=== PATIENT | male | born 1935 | race Caucasian/White ===

== ENCOUNTER 2024-08-30 13:20 | Outpatient (OUT) | payer MEDICARE, OTHER, SELFPAY ==
--- NOTE | 2024-08-30 14:24 | PM.WCHP ---
Wound Care H&P: HPI History of Present Illness Narrative: Ever is a pleasant 89-year-old gentleman with history of type 2 diabetes who presents for routine nail care. He states the toenails are painful when elongated and pain is relieved when they are trimmed. He denies cramping in his calves or pain in his feet. Exam Narrative: Exam Narrative: Dermatologic: No ulcerative or preulcerative lesions are noted. Toenails 1 through 10 are elongated and thickened. No evidence of paronychia. Musculoskeletal: No gross deformity, strength and range of motion are within normal limits Neurologic: Achilles reflexes are absent bilaterally, vibratory sensation is present bilaterally, monofilament testing revealed protective sensation intact in 1/5 areas on the right and 3/5 areas on the left. Vascular: Dorsalis pedis pulses are 2/4 bilaterally. PT pulses are nonpalpable bilaterally. Capillary refill is less than 3 seconds bilaterally. Varicosities are present bilaterally. Skin is warm and dry, but shiny. No edema noted. Digital hair is absent. Assessment and Plan Assessment and Plan (1) Tinea unguium: (2) Diminished pulses in lower extremity: (3) Type 2 diabetes mellitus with diabetic neuropathy, unspecified: (4) Disorder of nail due to another disorder: Plan Toenails 1 through 10 were sharply debrided without incident. The patient was counseled on foot health and should follow-up in 3 months, sooner if any issues arise. Acute Procedures Podiatry Nail Debridement Class B Findings Absent posterior tibial pulse: bilateral Advanced trophic changes as evidenced by any three of the following: decreased hair growth, nail changes (thickening) and skin texture (thin or shiny) Class C Findings Nail debridement paresthesia (abnormal spontaneous sensations in the feet): Yes Burning: Yes Qualifies If: Qualifiers If:: A patient qualifies for nail debridement if they have: 1 class A finding (Q7) 2 class B findings (Q8) OR 1 class B & 2 class C findings in addition to a primary condition (Q9) Nail Procedure Nail Procedure Time out: Yes Nail procedure: other (Nail debridement with nail nippers) Number of affected nails: 10 Location (toes): left and right Procedure successful: Yes Patient tolerated procedure: well and no complications Additional comments: Toenails 1 through 10 were sharply debrided without incident. The patient noted pain relief postprocedure.
== END 2024-08-30 13:21 | disposition home or self-care (01) ==
LOC: WC 13:20
PROVIDERS: PCP Physician Assistant; Visit Provider Physician Assistant
DX: B35.1 Tinea unguium (principal); R09.89 Other specified symptoms and signs involving the circulatory and respiratory systems; E11.40 Type 2 diabetes mellitus with diabetic neuropathy, unspecified; L60.8 Other nail disorders
CPT/HCPCS: 11721

== ENCOUNTER 2024-11-29 12:51 | Outpatient (OUT) | payer MEDICARE, OTHER, SELFPAY ==
--- OUTSIDE RECORDS SUMMARY | 2024-05-07 09:40 | XMS_ITS ---
Author Organization The [facility] in [place] Address [address] [place] [address] Care Team Providers Care Wafer Fab Operator Name Role Phone Blake Kothari DO Primary Care Provider Ana Bray Unavailable [phone] REASON FOR VISIT Nail Care Medications Medication SIG (Take, Route, Frequency, Duration) Notes Start Date End Date Status Nitroglycerin 0.4 MG as directed Sublingual Active Montelukast Sodium 10 MG 1 tablet Orally Once a day Active metFORMIN HCl 500 MG 1 tablet with a osito l Orally Once a day Active Magnesium 200 MG 2 tablets with a osito l Orally Once a day Active Lisinopril 2.5 MG 1 tablet Orally Once a day Active Levothyroxine Sodium 50 MCG 1 tablet in the morning on an empty stomach Orally Once a day Active Isosorbide Dinitrate 40 MG 1 tablet Oral ly Twice a day Active glipiZIDE 5 MG 1 tablet 30 minutes before breakfast Orally Once a day Active Carvedilol 3.125 MG 1 tablet with food Orally Twice a day Active Atorvastatin Calcium 40 MG 1 tablet Oral ly Once a day Active Aspirin 81 MG 1 tablet Orally Once a day Active Social History Tobacco Use: Social History Observation Description Date Details (start date - stop date) Former Smoker NA - NA Tobacco Control (Standard) Question Answer Notes Tobacco use: Former smoker Vital Signs Temperature 98.2 degrees Fahrenheit 05/07/20 24 Heart Rate 88 /min 05/07/2024 Oximetry 99 % 05/07/2024 Encounters Encounter Location Date Provider Diagnosis [facility] (PODIATRY) [address] [place] [address] [place] [address] 05/07/2024 Ana Patrick Pain in right toe(s) M79.674 Assessments Encounter Date Diagnosis (ICD Code) Assessment Notes Treatment Notes Treatment Clinical Notes Section Notes 05/07/2024 Pain in right toe(s) (ICD-10 - M79.674) Plan Of Treatment No Information Progress Notes * Ever KLEINDOB:1935 (88 yo M)Acc No.[id number]:05/07/2024 Nurse Visit Patient: Ever VALENZUELA Provider: Nia Patrick PA-C :1935 A ge:88 Y S ex:Male Date:05/07/2024 Address:[address] [place] [address] Roberth Rodriguez [facility] Pcp:Blake Kothari, DO Check In:01:34 PM ESTCheck O ut:01:46 PM EST Subjective: * Chief Complaints: * N ail Care * HPI: G eneral: Nails were trimmed and filed down to his liking. Patient relates releif after procedure. * Active Problem List �����Problem List has not been verified* Medical History: * Surgical History: h eart stents 2007heart stents 2013 * Hospitalization/Major Diagno stic Procedure: N o Hospitalization History. * Family History: N o Family History documented.. * Social History: T obacco Use: T obacco Control (Standard) T obacco use: F ormer smoker * Medications: T akingAspirin 81 MG Tablet Delayed Release 1 tablet Orally Once a day Atorvastatin Calcium 40 MG Tablet 1 tablet Orally Once a day Carvedilol 3.125 MG Tablet 1 tablet with food Orally Twice a day glipiZIDE 5 MG Tablet 1 tablet 30 minutes before breakfast Orally Once a day Isosorbide Dinitrate 40 MG Tablet 1 tablet Orally Twice a day Levothyroxine Sodium 50 MCG Tablet 1 tablet in the morning on an empty stomach Orally Once a day Lisinopril 2.5 MG Tablet 1 tablet Orally Once a day Magnesium 200 MG Tablet 2 tablets with a meal Orally Once a day metFORMIN HCl 500 MG Tablet 1 tablet with a meal Orally Once a day Montelukast Sodium 10 MG Tablet 1 tablet Orally Once a day Nitroglycerin 0.4 MG Tablet Sublingual as directed Sublingual Medication List reviewed and reconciled with the patientTaking Aspirin 81 MG Tablet Delayed Release 1 tablet Orally Once a day Taking Atorvastatin Calcium 40 MG Tablet 1 tablet Orally Once a day Taking Carvedilol 3.125 MG Tablet 1 tablet with food Orally Twice a day Taking glipiZIDE 5 MG Tablet 1 tablet 30 minutes before breakfast Orally Once a day Taking Isosorbide Dinitrate 40 MG Tablet 1 tablet Orally Twice a day Taking Levothyroxine Sodium 50 MCG Tablet 1 tablet in the morning on an empty stomach Orally Once a day Taking Lisinopril 2.5 MG Tablet 1 tablet Orally Once a day Taking Magnesium 200 MG Tablet 2 tablets with a meal Orally Once a day Taking metFORMIN HCl 500 MG Tablet 1 tablet with a meal Orally Once a day Taking Montelukast Sodium 10 MG Tablet 1 tablet Orally Once a day Taking Nitroglycerin 0.4 MG Tablet Sublingual as directed Sublingual Medication List reviewed and reconciled with the patient * Allergies: n o[Allergies Verified] Objective: * Vitals: T emp:98.2F, HR:88/min, Oxygen sat %:99%. Assessment: * Assessment: 1. P ain in right toe(s) - M79.674 (Primary) Plan: * Treatment: * Procedure Codes: * * Sign off status: Completed Visit Status: C HK (Check Out) true * Provider: Nia Patrick PA-C Date: 1 07/08/2023 Generated for Tricia drake/Chely/Andrzej on: 0 11/29/2024 12:57 PM EDT History and Physical Notes * HPI (History of Present Illness) Category Sub-Category Detail Notes Category Not es General Nails were trim med and filed down to his liking. Patient relates releif after procedure.
--- OUTSIDE RECORDS SUMMARY | 2024-07-30 10:00 | XMS_ITS ---
Author Organization The [facility] in [place] Address [address] [place] [address] Care Team Providers Care Vending Technician Name Role Phone Blake Kothari DO Primary Care Provider Ana Bray Unavailable [phone] REASON FOR VISIT 3 month f/u Encounters Encounter Location Date Provider Diagnosis [facility] (PODIATRY) [address] [place] [address] [place] [address] 07/30/2024 Ana Patrick Plan Of Treatment No Information Progress Notes * Ever KLEINDOB:1935 (89 yo M)Acc No.[id number]:07/30/2024 UNLOCKED PROGRESS NOTE Nurse Visit Patient: Ever VALENZUELA Provider: Nia Patrick PA-C :1935 A ge:88 Y S ex:Male Date:07/30/2024 Address:[address] [place], [place] [id number] Pcp:Blake Kothari DO Subjective: * Chief Complaints: * 1 . 3 month f/u. * Medical History: Objective: * Vitals: Assessment: Plan: * Treatment: * * Electronic signature of Ravinder Patrick PA-C on 11/29/2024 at 12:57 PM EDT Sign off status: Pending Visit Status: C ANC (Cancelled) * Provider: Nia Patrick PA-C Date: 0 07/30/2024 Generated for Printi ng/Faxing/eTransmitting on: 0 11/29/2024 12:57 PM EDT
--- OUTSIDE RECORDS SUMMARY | 2024-08-13 09:38 | XMS_ITS ---
Author Organization The [facility] in [place] Address [address] [place] [address] Care Team Providers Care Barrel Polisher Name Role Phone Blake Kothari DO Primary Care Provider Selvin Steve [facility] [phone] Encounters Encounter Location Date Provider Diagnosis [facility] (PODIATRY) [address] [place] [address] [place] [address] 08/13/2024 Selvin Corrigan Plan Of Treatment No Information Progress Notes * Ever KLEINDOB:1935 (89 yo M)Acc No.[id number]:08/13/2024 Patient: Ever VALENZUELA :1935 A ge:89 Y S ex:Male Address:[address] [place] [address] [place], [address] * true * Date: Generated for Printi ng/Faxing/eTransmitting on: 0 11/29/2024 12:56 PM EDT
--- OUTSIDE RECORDS SUMMARY | 2024-09-24 05:00 | XMS_ITS | Encounter Summary ---
Author Name [facility] [place] Organization [facility] [place] Address [address] [place] [address] Care Team Providers Care Asp Net Developer Name Role Phone LISSETTE KARIMI Primary Care Provider Unavail able Insurance Providers: All historical and current Section Date Range: From patient's date of to the date document was created. This section includes the names of all active insurance providers for the patient. Insurance Provider Type of Coverage Plan Name Start of Policy Coverage End of Policy Coverage Group Number Member ID Insurance Provider's Telephone Number Policy Vargas's Name Patient's Relationship to Policy Vargas MEDICARE (WNR) MEDICARE (M) PART B May 16, 2004 PART B [id number] MARTÍN MASON PATIENT MEDICARE (WNR) MEDICARE (M) PART A Jul 14, 2001 PART A [id number] MARTÍN MASON PATIENT MEDICARE (WNR) MEDICARE (M) PART A Jul 14, 2001 PART A [id number] JERONIMOALENAMARTÍN TELLES PATIENT Selected Encounter This section includes the information on record at [place] for the Encounter. Date/Time Encounter Type Encounter Description Reason Provider Source September 24, 2024 09:00 AM OFFICE O/P EST LOW 20 MIN PRIMARY CARE/MEDICINE ICD-10-CM E03.9 Hypothyroidism, unspecified FEDE KARIMI Encounter Template Text not used by [place] Assessments - Encounter Diagnoses This section includes the primary and secondary diagnoses documented for the Encounter. 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 FEDE KARIMI A [facility] September 24, 2024 09:09 AM SECONDARY Cardiac murmur, unspecified FEDE KARIMI A [facility] September 24, 2024 09:09 AM SECONDARY Essential (primary) hypertension FEDE KARIMI A [facility] September 24, 2024 09:09 AM SECONDARY Hyperlipidemia, unspecified FEDE KARIMI A [facility] September 24, 2024 09:09 AM SECONDARY Type 2 diabetes mellitus without complications FEDE KARIMI A [facility] September 24, 2024 09:09 AM SECONDARY Unspecified asthma, uncomplicated FEDE KARIMI A [facility] Plan of Treatment: Future Appointments (+ 6 months) and Future Tests (+/- 45 days) The Plan of Treatment section includes [facility] care [facility] the [facility] [place] [facility] This section includes future appointments and future orders which are active, pending or scheduled. Active, Pending, and Scheduled Orders This section includes a listing of several types of active, pending, and scheduled orders, including clinic medications orders, diagnostic test orders, procedure orders and consult orders; where the start date of the order is 45 days before the date of the Encounter or 45 days after the date of theEncounter. The data comes from all [place] treatment facilities. Test Date/Time Test Type Test Details Facility Name September 27, 2024 12:00 AM Laboratory - Chemi stry Order MICROALBUMIN/CREATININ E RATIO PANEL URINE, RANDOM SP ONCE [facility] Lab Results: +/- 30 days of the encounter This section includes the Chemistry and Hematology Lab Results on record with [place] for the patient. Radiology Reports and Pathology Reports are provided separately, in subsequent sections. Lab Results This section contains the Chemistry/Hematology Results that were resulted 30 days before or 30 daysafter the date of the Encounter. Date/Time Source Result Type Result - Unit Interpretation Reference Range Specimen Type Comment September 24, 2024 09:15 AM [facility] TSH PLASMA Specimen Type: PLASMA No comment entered. Ordering Provider: TITO KARIMI Report Released Date/Time: September 20, 2024 02:14 PM Reporting Lab: [address] [address] Performing Lab: [place] [id number] TSH 3.250 u[IU]/mL 0.350-4.940 September 24, 2024 09:15 AM [facility] IRON GROUP SERUM Specimen Type: SERUM No comment entered. Ordering Provider: LISSETTE KARIMI Report Released Date/Time: September 20, 2024 02:14 PM Reporting Lab: [address] [address] Performing Lab: [place] [id number] TIBC 219 ug/dL L 250-425 IRON 65 ug/dL 65-175 TIBC% 30 20-50 September 24, 2024 09:15 AM [facility] FERRITIN PLASMA Specimen Type: PLASMA No comment entered. Ordering Provider: LISSETTE KARIMI Report Released Date/Time: September 20, 2024 02:14 PM Reporting Lab: [address] [address] Performing Lab: [place] [id number] FERRITIN 100.1 ng/mL 21.8-274.6 September 24, 2024 09:15 AM [facility] FOLATE SERUM Specimen Type: SERUM No comment entered. Ordering Provider: LISSETTE KARIMI Report Released Date/Time: September 20, 2024 02:14 PM Reporting Lab: [address] [address] Performing Lab: [place] [id number] FOLATE 15.7 ng/mL 7.0-31.4 September 24, 2024 09:15 AM [facility] VITAMIN B12 PLASMA Specimen Type: P KLARISSA Comment: VITB12 Levels above 300 or 400 pg/mL are rarely associated with VITB12 vitamin B12 deficiency induced hematologic or neurologic VITB12 disease, respectively. Recommended usage in conjunction with VITB12 information obtained from clinical evaluation and other VITB12 testing. Ordering Provider: LISSETTE KARIMI Report Released Date/Time: September 20, 2024 02:14 PM Reporting Lab: [address] [phone] Performing Lab: [address] [phone] VITAMIN B12 578 pg/mL 213-816 September 17, 2024 07:53 AM [facility] COMPREHENSIVE METABOLIC PANEL PLASMA S pecimen Type: PLASMA Comment: GLUCOSE The ADA recommends a fasting glucose of 99 mg/dL as the GLUCOSE upper limit of normal. TP Per package insert reference range for recumbent is 6.0 to 7.8 TP g/dL. Plasma samples will generally have higher values (about TP 0.2 to 0.4 g/dL higher) due to presence of fibrinogen. TRIG REFERENCE RANGE: BORDERLINE HIGH: 150-199 mg/dL HIGH: 200-499 TRIG mg/dL VERY HIGH: >=500 mg/dL CHOL REF RANGE: BORDERLINE HIGH: 200-239 mg/dL HIGH: >=240 mg/dL HDLC Values >60 are a negative risk factor for heart disease. DLDL REF RANGE: NEAR OR ABOVE OPTIMAL: 100-129 mg/dL BORDERLINE DLDL HIGH: 130-159 mg/dL HIGH: 160-189 mg/dL VERY HIGH: >=190 Ordering Provider: AUBREE SHAH Report Released Date/Time: September 28, 2023 09:26 AM Reporting Lab: [address] [phone] Performing Lab: [address] [phone] ALBUMIN 3.5 g/dL 3.5-4.8 ALKALINE PHOSPHATASE 102 U/L 40-150 ALT/SGPT 17 U/L 0-55 AST/SGOT 24 U/L 10-40 BUN 24.9 mg/dL 8.4-25.7 CALCIUM 9.2 mg/dL 8.6-10.3 CREATININE 1.5 mg/dL H 0.7-1.3 CO2 25 mmol/L 22-30 GLUCOSE 83 mg/dL 74-99 PROTEIN, TOTAL 6.1 g/dL L 6.4-8.3 SODIUM 142 mmol/L 134-144 CHLORIDE 111 mmol/L 99-112 BILIRUBIN, TOTAL 0.7 mg/dL 0.2-1.2 POTASSIUM 4.9 mmol/L 3.5-5.1 ANION GAP 11 mmol/L 10-20 EGFR (CALCULATED) 45 September 17, 2024 07:53 AM [facility] LIPID PROFILE PLASMA Specimen Type: PLASMA Comment: GLUCOSE The ADA recommends a fasting glucose of 99 mg/dL as the GLUCOSE upper limit of normal. TP Per package insert reference range for recumbent is 6.0 to 7.8 TP g/dL. Plasma samples will generally have higher values (about TP 0.2 to 0.4 g/dL higher) due to presence of fibrinogen. TRIG REFERENCE RANGE: BORDERLINE HIGH: 150-199 mg/dL HIGH: 200-499 TRIG mg/dL VERY HIGH: >=500 mg/dL CHOL REF RANGE: BORDERLINE HIGH: 200-239 mg/dL HIGH: >=240 mg/dL HDLC Values >60 are a negative risk factor for heart disease. DLDL REF RANGE: NEAR OR ABOVE OPTIMAL: 100-129 mg/dL BORDERLINE DLDL HIGH: 130-159 mg/dL HIGH: 160-189 mg/dL VERY HIGH: >=190 Ordering Provider: AUBREE SHAH Report Released Date/Time: September 28, 2023 09:26 AM Reporting Lab: [address] [phone] Performing Lab: [address] [phone] CHOLESTEROL 124 mg/dL 0-199 LDL CHOLESTEROL 65 mg/dL 0-99 HDL CHOLESTEROL 48 mg/dL >40 TRIGLYCERIDE 84 mg/dL 0-149 September 17, 2024 07:53 AM [facility] CBC BLOOD Specimen Type: BLOOD No comment entered. Ordering Provider: AUBREE SHAH Report Released Date/Time: September 28, 2023 09:26 AM Reporting Lab: [address] [phone] Performing Lab: [address] [phone] WBC COUNT 5.7 10*3/uL 3.6-11.0 RBC COUNT 3.69 10*6/uL L 4.47-5.83 HGB 12.0 g/dL L 13.6-17.4 HCT 35.6 L 40.0-51.0 MCV 96.3 fL H 80.0-96.0 MCH 32.5 pg H 27.0-31.0 MCHC 33.7 g/dL 31.5-36.5 PLT 155 10*3/uL 150-400 LYMPHS % 20.1 L 21.0-51.0 MONOCYTES % 9.2 H 4.0-8.0 NUCLEATED RBC/100WBC 0.1 /100{WBCs} RDW 14.4 11.2-15.8 NEUTROPHIL % 67.5 54.0-78.0 EOSINOPHIL % 2.4 0.0-3.0 BASOPHIL % 0.8 0.0-3.0 ABSOLUTE LYMPHOCYTE COUNT 1.2 10*3/uL 0. 8-5.0 ABSOLUTE NEUTROPHIL COUNT 3.9 10*3/uL 1. 9-8.6 ABSOLUTE BASOPHIL COUNT 0.0 10*3/uL 0.0- 0.3 ABSOLUTE MONOCYTE COUNT 0.5 10*3/uL 0.1- 0.9 ABSOLUTE EOSINOPHIL COUNT 0.1 10*3/uL 0. 0-0.3 MPV 8.9 fL 7.4-11.4 September 17, 2024 07:53 AM [facility] HEMOGLOBIN A1C BLOOD Specimen Type: B LOOD Comment: Values obtained from A1C measurements can vary. For typical A1C assays, a reported value of 7.0 could actually be between 6.72 and 7.28 if measured by a reference method. A reported value of 9.0 could actually be between 8.73 and 9.27. Ref: http://www.ngsp.org/CAPdata.asp Ordering Provider: AUBREE SHAH Report Released Date/Time: September 28, 2023 09:26 AM Reporting Lab: [address] [phone] Performing Lab: [address] [phone] HEMOGLOBIN A1C 6.9 H 3.6-5.7 September 17, 2024 07:53 AM [facility] MAGNESIUM PLASMA Specimen Type: PLASMA Comment: GLUCOSE The ADA recommends a fasting glucose of 99 mg/dL as the GLUCOSE upper limit of normal. TP Per package insert reference range for recumbent is 6.0 to 7.8 TP g/dL. Plasma samples will generally have higher values (about TP 0.2 to 0.4 g/dL higher) due to presence of fibrinogen. Ordering Provider: AUBREE SHAH Report Released Date/Time: September 28, 2023 09:26 AM Reporting Lab: [address] [phone] Performing Lab: [facility] [address] [facility] [phone] MAGNESIUM 1.6 mg/dL 1.6-2.6 Social History: Smoking Status (Most current) and Tobacco Use (All prior to encounter date) This section includes the most current, and the historical, smoking and tobacco- related health factors from the [place] facility where the Encounter took place. Current Smoking Status This section includes the most current smoking, or tobacco-related health factor, from the [place] facility where the Encounter took place. Date/Time Current Smoking Status Comment Facil ity September 24, 2024 09:00 AM VA-TOBACCO USE FORMER CIGARETTES [facility] Tobacco Use History This section includes a history of the smoking, or tobacco-related health factors, that were collected on or before the date of the Encounter. The data comes from the [place] facility where the Encounter took place. Date/Time Smoking Status/Tobacco Use Comment F acmaxi September 24, 2024 09:00 AM VA-TOBACCO USE FORMER CIGARETTES [facility] Oct 27, 2022 09:30 AM VA-TOBACCO FORMER USER [facility] Oct 27, 2022 09:30 AM VA-TOBACCO QUIT 15 YRS OR MORE [facility] Oct 23, 2021 09:30 AM VA-TOBACCO FORMER USER [facility] Oct 23, 2021 09:30 AM VA-TOBACCO QUIT 15 YRS OR MORE [facility] Jan 08, 2020 03:00 PM VA-TOBACCO FORMER USER [facility] Jan 08, 2020 03:00 PM VA-TOBACCO QUIT 15 YRS OR MORE [facility] Aug 24, 2018 01:17 PM VA-TOBACCO NEVER USED [facility] Encounter Notes: All associated encounter notes This section contains the clinical notes associated to the Encounter. Date/Time Encounter Note(s) Provider Source September 25, 2024 07:56 AM PRIMARY CARE FLORENCIA RS: LOCAL TITLE: PATIENT RESULTS LETTER (T) STANDARD TITLE: PRIMARY CARE LETTERS DATE OF NOTE: SEPTEMBER 25, 2024@07:56 ENTRY DATE: SEPTEMBER 25, 2024@07:56:25 AUTHOR: LISSETTE KARIMI COSIGNER: URGENCY: STATUS: COMPLETED [facility] [address] [place] [address] MARTÍN MASON September [address] [place], [place] [address] Dear MARTÍN MASON, I have reviewed your results listed below and I would like to discuss them with you. CHOLESTEROL AND TRIGLYCERIDES - YOUR RESULTS WERE: Collection DT Specimen Test Name Result Units Ref Range 09/17/2024 07:53 PLASMA CHOLESTEROL 124 mg/dL 0 - 199 09/17/2024 07:53 PLASMA LDL CHOLESTEROL 65 mg/dL 0 - 99 09/17/2024 07:53 PLASMA HDL CHOLESTEROL 48 mg/dL Ref: >= 40 09/17/2024 07:53 PLASMA TRIGLYCERIDE 84 mg/dL 0 - 149 Comment: GLUCOSE The ADA recommends a fasting glucose of 99 mg/dL as the Comment: GLUCOSE upper limit of normal. Comment: TP Per package insert reference range for recumbent is 6.0 to 7.8 Comment: TP g/dL. Plasma samples will generally have higher values (about Comment: TP 0.2 to 0.4 g/dL higher) due to presence of fibrinogen. Comment: TRIG REFERENCE RANGE: BORDERLINE HIGH: 150-199 mg/dL HIGH: 200-499 Comment: TRIG mg/dL VERY HIGH: >=500 mg/dL Comment: CHOL REF RANGE: BORDERLINE HIGH: 200-239 mg/dL HIGH: >=240 mg/dL Comment: HDLC Values >60 are a negative risk factor for heart disease. Comment: DLDL REF RANGE: NEAR OR ABOVE OPTIMAL: 100-129 mg/dL BORDERLINE Comment: DLDL HIGH: 130-159 mg/dL HIGH: 160-189 mg/dL VERY HIGH: >=190 HEMOGLOBIN A1C - YOUR RESULTS WERE: Collection DT Specimen Test Name Result Units Ref Range 09/17/2024 07:53 BLOOD HEMOGLOBIN A1C 6.9 H % 3.6 - 5.7 Comment: Values obtained from A1C measurements can vary. For typical A1C Comment: assays, a reported value of 7.0 could actually be between 6.72 and Comment: 7.28 if measured by a reference method. A reported value of 9.0 Comment: could actually be between 8.73 and 9.27. Ref: Comment: http://www.ngsp.org/CAPdata.a sp 09/28/2023 09:40 BLOOD HEMOGLOBIN A1C 7.9 H % 3.6 - 5.7 Comment: Values obtained from A1C measurements can vary. For typical A1C Comment: assays, a reported value of 7.0 could actually be between 6.72 and Comment: 7.28 if measured by a reference method. A reported value of 9.0 Comment: could actually be between 8.73 and 9.27. Ref: Comment: http://www.ngsp.org/CAPdata.a sp GOAL IS LESS THAN 7 - 7.5% GLUCOSE - YOUR RESULTS WERE: Collection DT Specimen Test Name Result Units Ref Range 09/17/2024 07:53 PLASMA GLUCOSE 83 mg/dL 74 - 99 Comment: GLUCOSE The ADA recommends a fasting glucose of 99 mg/dL as the Comment: GLUCOSE upper limit of normal. Comment: TP Per package insert reference range for recumbent is 6.0 to 7.8 Comment: TP g/dL. Plasma samples will generally have higher values (about Comment: TP 0.2 to 0.4 g/dL higher) due to presence of fibrinogen. Comment: TRIG REFERENCE RANGE: BORDERLINE HIGH: 150-199 mg/dL HIGH: 200-499 Comment: TRIG mg/dL VERY HIGH: >=500 mg/dL Comment: CHOL REF RANGE: BORDERLINE HIGH: 200-239 mg/dL HIGH: >=240 mg/dL Comment: HDLC Values >60 are a negative risk factor for heart disease. Comment: DLDL REF RANGE: NEAR OR ABOVE OPTIMAL: 100-129 mg/dL BORDERLINE Comment: DLDL HIGH: 130-159 mg/dL HIGH: 160-189 mg/dL VERY HIGH: >=190 LIVER FUNCTION - YOUR RESULTS WERE: Collection DT Specimen Test Name Result Units Ref Range 09/17/2024 07:53 PLASMA ALBUMIN 3.5 g/dL 3.5 - 4.8 09/17/2024 07:53 PLASMA ALKALINE PHOSPHAT 102 U/L 40 - 150 09/17/2024 07:53 PLASMA ALT/SGPT 17 U/L 0 - 55 09/17/2024 07:53 PLASMA AST/SGOT 24 U/L 10 - 40 09/17/2024 07:53 PLASMA PROTEIN, TOTAL 6.1 L g/dL 6.4 - 8.3 09/17/2024 07:53 PLASMA BILIRUBIN, TOTAL 0.7 mg/dL 0.2 - 1.2 Comment: GLUCOSE The ADA recommends a fasting glucose of 99 mg/dL as the Comment: GLUCOSE upper limit of normal. Comment: TP Per package insert reference range for recumbent is 6.0 to 7.8 Comment: TP g/dL. Plasma samples will generally have higher values (about Comment: TP 0.2 to 0.4 g/dL higher) due to presence of fibrinogen. Comment: TRIG REFERENCE RANGE: BORDERLINE HIGH: 150-199 mg/dL HIGH: 200-499 Comment: TRIG mg/dL VERY HIGH: >=500 mg/dL Comment: CHOL REF RANGE: BORDERLINE HIGH: 200-239 mg/dL HIGH: >=240 mg/dL Comment: HDLC Values >60 are a negative risk factor for heart disease. Comment: DLDL REF RANGE: NEAR OR ABOVE OPTIMAL: 100-129 mg/dL BORDERLINE Comment: DLDL HIGH: 130-159 mg/dL HIGH: 160-189 mg/dL VERY HIGH: >=190 BLOOD COUNT - YOUR RESULTS WERE: SLT - CBC --------- Collection DT Specimen Test Name Result Units Ref Range 09/17/2024 07:53 BLOOD WBC COUNT 5.7 K/cmm 3.6 - 11.0 09/17/2024 07:53 BLOOD RBC COUNT 3.69 L M/cmm 4.47 - 5.83 09/17/2024 07:53 BLOOD HGB 12.0 L g/dL 13.6 - 17.4 09/17/2024 07:53 BLOOD HCT 35.6 L % 40.0 - 51.0 09/17/2024 07:53 BLOOD MCV 96.3 H fL 80.0 - 96.0 09/17/2024 07:53 BLOOD MCH 32.5 H pg 27.0 - 31.0 09/17/2024 07:53 BLOOD MCHC 33.7 g/dL 31.5 - 36.5 09/17/2024 07:53 BLOOD PLT 155 K/cmm 150 - 400 09/17/2024 07:53 BLOOD MPV 8.9 fL 7.4 - 11.4 09/17/2024 07:53 BLOOD RDW 14.4 % 11.2 - 15.8 09/17/2024 07:53 BLOOD LYMPHS % 20.1 L % 21.0 - 51.0 09/17/2024 07:53 BLOOD BASOPHIL % 0.8 % 0.0 - 3.0 09/17/2024 07:53 BLOOD NEUTROPHIL % 67.5 % 54.0 - 78.0 09/17/2024 07:53 BLOOD EOSINOPHIL % 2.4 % 0.0 - 3.0 Comment: Values obtained from A1C measurements can vary. For typical A1C Comment: assays, a reported value of 7.0 could actually be between 6.72 and Comment: 7.28 if measured by a reference method. A reported value of 9.0 Comment: could actually be between 8.73 and 9.27. Ref: Comment: http://www.ngsp.org/CAPdata.a sp KIDNEY FUNCTION - YOUR RESULTS WERE Collection DT Specimen Test Name Result Units Ref Range 09/17/2024 07:53 PLASMA ALBUMIN 3.5 g/dL 3.5 - 4.8 09/17/2024 07:53 PLASMA BUN 24.9 mg/dL 8.4 - 25.7 09/17/2024 07:53 PLASMA CALCIUM 9.2 mg/dL 8.6 - 10.3 09/17/2024 07:53 PLASMA CREATININE 1.5 H mg/dL 0.7 - 1.3 09/17/2024 07:53 PLASMA CO2 25 mmol/L 22 - 30 09/17/2024 07:53 PLASMA GLUCOSE 83 mg/dL 74 - 99 09/17/2024 07:53 PLASMA SODIUM 142 mmol/L 134 - 144 09/17/2024 07:53 PLASMA CHLORIDE 111 mmol/L 99 - 112 09/17/2024 07:53 PLASMA POTASSIUM 4.9 mmol/L 3.5 - 5.1 09/17/2024 07:53 PLASMA ANION GAP 11 mmol/L 10 - 20 09/17/2024 07:53 PLASMA EGFR (CALCULATED) 45 mL/min/1.73m2 BSA Comment: GLUCOSE The ADA recommends a fasting glucose of 99 mg/dL as the Comment: GLUCOSE upper limit of normal. Comment: TP Per package insert reference range for recumbent is 6.0 to 7.8 Comment: TP g/dL. Plasma samples will generally have higher values (about Comment: TP 0.2 to 0.4 g/dL higher) due to presence of fibrinogen. Comment: TRIG REFERENCE RANGE: BORDERLINE HIGH: 150-199 mg/dL HIGH: 200-499 Comment: TRIG mg/dL VERY HIGH: >=500 mg/dL Comment: CHOL REF RANGE: BORDERLINE HIGH: 200-239 mg/dL HIGH: >=240 mg/dL Comment: HDLC Values >60 are a negative risk factor for heart disease. Comment: DLDL REF RANGE: NEAR OR ABOVE OPTIMAL: 100-129 mg/dL BORDERLINE Comment: DLDL HIGH: 130-159 mg/dL HIGH: 160-189 mg/dL VERY HIGH: >=190 THYROID FUNCTION - YOUR RESULTS WERE: Collection DT Specimen Test Name Result Units Ref Range 09/24/2024 09:15 PLASMA TSH 3.250 uIU/mL 0.350 - 4.940 Comment: VITB12 Levels above 300 or 400 pg/mL are rarely associated with Comment: VITB12 vitamin B12 deficiency induced hematologic or neurologic Comment: VITB12 disease, respectively. Recommended usage in conjunction with Comment: VITB12 information obtained from clinical evaluation and other Comment: VITB12 testing. Normal thyroid lab. Additional lab results and/or comments: Thyroid labs are borderline low. Are you willing to start an iron supplement? They can cause dark stools and constipation which you may treat with over the counter colace and/ or miralax. Thanks, Maria Victoria Additional lab results and/or comments: LISSETTE KARIMI [facility] September 24, 2024 08:44 AM INTERNAL MEDICINE OUTPATIENT NOTE: LOCAL TITLE: PRIMARY CARE OUTPATIENT NOTE (T) STANDARD TITLE: INTERNAL MEDICINE OUTPATIENT NOTE DATE OF NOTE: SEPTEMBER 24, 2024@08:44 ENTRY DATE: SEPTEMBER 24, 2024@08:44:44 AUTHOR: LISSETTE KARIMI EXP COSIGNER: URGENCY: STATUS: COMPLETED In-person Note 89yo Reason for Visit: Patient is an 89 yo with a PMHx of asthma, HTN, HLD, murmur, hypothyroid, CAD, DM and repair of AAA is here for routine follow up. Patient's outside primary care provider is Dr. Kothari, Pre Press Proofer Dr. Davis and urologist Dr. Gonzalez. Blood pressure is controlled in the office. Last lipid panel was WNL. Creatinine minimally elevated at 1.5. Last hemoglobin was 12.0. Last A1C was 6.9. No recent TSH in the computer. 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 HEENT: Denies vision changes, ear pain, sore throat. CARD: Denies CP, pressure, palpitations, edema or NESBITT. Lung: Denies cough, wheezing or SOB. GI: Denies heartburn, indigestion, diarrhea, constipation or change in bowels. : Denies nocturia, urgency, dysuria or frequency. Musculoskeletal: Denies back or joint pains. Neuro: Denies headaches, numnbess/ tingling, confusion or tremors. Psych: Denies insomnia, depression or anxiety. PATIENT ALLERGIES DETAILED ALLERGIES/ADVERSE REACTIONS No Known Allergies AMRS - MEDS (REC SUCCINCT) Active and Recently Inpatient, Outpatient and Clinic Medications (including Supplies): Active Non-VA Medications Status 1) Non-VA ASPIRIN 81MG EC TAB 81MG MOUTH EVERY DAY ACTIVE 2) Non-VA ATORVASTATIN CALCIUM 20MG TAB 20MG MOUTH AT ACTIVE BEDTIME 3) Non-VA CARVEDILOL 3.125MG TAB 3.125MG MOUTH TWICE A ACTIVE DAY 4) Non-VA CLOPIDOGREL BISULFATE 75MG TAB 75MG MOUTH ACTIVE EVERY DAY 5) Non-VA GLIPIZIDE 5MG SA TAB 5MG MOUTH TWICE A DAY ACTIVE 6) Non-VA ISOSORBIDE MONONITRATE 60MG SA TAB 60MG MOUTH ACTIVE EVERY DAY 7) Non-VA LEVOTHYROXINE NA 50MCG TAB 50MCG MOUTH EVERY ACTIVE MORNING, ON AN EMPTY STOMACH 8) Non-VA LISINOPRIL 2.5MG TAB 2.5MG MOUTH EVERY DAY ACTIVE 9) Non-VA METFORMIN HCL 1000MG TAB 1000MG MOUTH TWICE A ACTIVE DAY WITH MEALS 10) Non-VA MONTELUKAST NA 10MG TAB 10MG MOUTH AT BEDTIME ACTIVE 11) Non-VA MULTIVIT/OPHTH AREDS2/LUTE/ZEAX CAP/TAB 1 ACTIVE CAPSULE MOUTH EVERY DAY 12) Non-VA NITROGLYCERIN 0.4MG SL TAB 0.4MG UNDER THE ACTIVE TONGUE NEEDED PHYSICAL EXAM: Vital Signs: T: 98.1 F [36.7 C] (09/24/2024 08:16) P: 66 (09/24/2024 08:16) R: 16 (09/24/2024 08:16) BP: 113/72 (09/24/2024 08:16) Pain: 0 (09/24/2024 08:16) Height: 70 in [177.8 cm] (10/27/2022 09:11) Weight: 171.2 lb [77.66 kg] (09/24/2024 08:16) Pulse Ox: 97% (09/24/2024 08:16) General: Patient is well nourished, no acute distress. Lungs: clear throughout. Heart: RRR, no murmurs. Extremities: no edema noted. Neuro: A&Ox3, no gait abnormalities, no obvious tremors. Psych: appropriated mood and affect. ASSESSMENT/PLAN: asthma-well controlled. HTN-well controlled on current regimen. HLD/ CAD-toleraets statin without SE. Follows with cardiology. anemia-labs ordered. Denies bleeding. hypothyroid-update TSH CKD-continue good hydration and avoid NSAIDS. DM-well controlled. HEALTH MAINTENANCE/CLINICAL REMINDERS: MEDICATION RECONCILIATION Medication Reconciliation report reviewed and discussed with patient/caregiver. VA prescription medications, non-VA prescription medications, OTC and herbal medications reviewed: Patient/caregiver verifies that the list is complete and accurate and voices understanding. FOLLOW-UP: fu one year, labs prior. I am the Staff Provider. TOTAL TIME SPENT: Spent 20 minutes in care of this patient today including review of records, exam, and placing orders. /julissa/ LISSETTE KARIMI NURSE PRACTITIONER Signed: 09/24/2024 09:09 LISSETTE KARIMI CB September 24, 2024 08:18 AM PRIMARY CARE NURSI NG NOTE: LOCAL TITLE: OUTPATIENT NURSING INTAKE NOTE (T) STANDARD TITLE: PRIMARY CARE NURSING NOTE DATE OF NOTE: SEPTEMBER 24, 2024@08:18 ENTRY DATE: SEPTEMBER 24, 2024@08:18:28 AUTHOR: STEVE FARIAS COSIGNER: URGENCY: STATUS: COMPLETED Hemoglobin A1C Results: Collection DT Specimen Test Name Result Units Ref Range 09/17/2024 07:53 BLOOD HEMOGLOBIN A1C 6.9 H % 3.6 - 5.7 Comment: Values obtained from A1C measurements can vary. For typical A1C Comment: assays, a reported value of 7.0 could actually be between 6.72 and Comment: 7.28 if measured by a reference method. A reported value of 9.0 Comment: could actually be between 8.73 and 9.27. Ref: Comment: [email or web address] 09/28/2023 09:40 BLOOD HEMOGLOBIN A1C 7.9 H % 3.6 - 5.7 Comment: Values obtained from A1C measurements can vary. For typical A1C Comment: assays, a reported value of 7.0 could actually be between 6.72 and Comment: 7.28 if measured by a reference method. A reported value of 9.0 Comment: could actually be between 8.73 and 9.27. Ref: Comment: [email or web address] 10/20/2022 08:07 BLOOD HEMOGLOBIN A1C 7.4 H % 3.6 - 5.7 Comment: Values obtained from A1C measurements can vary. For typical A1C Comment: assays, a reported value of 7.0 could actually be between 6.72 and Comment: 7.28 if measured by a reference method. A reported value of 9.0 Comment: could actually be between 8.73 and 9.27. Ref: Comment: [email or web address] Review Allergies Allergies reviewed and updated per protocol. ALLERGIES/ADVERSE REACTIONS No Known Allergies Have you fallen in the last 30 days? NO MEDICATION LIST REVIEW REPORT Patient states OTC/Herbals have changed since last visit-record update. 1. Has the patient been feeling sad or distressed? No 2. Has the patient been having personal or family problems? No 3. Has the patient been experiencing worry and/or stress? No 4. Has the patient been having problems with drugs and/or alcohol? No 5. Crisis Line pocket card was provided to patient. No/patient declined [facility] ('s [place], [employer]) What matters most to you? Comment: My Clinical Reminders Activity Advance Directive Education Screen: Patient received information regarding Advance Directives: No - Patient declined information at this time. Patient spouse states AD's are in place. Alcohol Use Screen (AUDIT-C): Alcohol Screen: SCREEN FOR ALCOHOL (AUDIT-C) An alcohol screening test (AUDIT-C) was negative (score=0). 1. How often did you have a drink containing alcohol in the past year? Consider a drink to be a 12 ounce can or bottle of regular beer, 8 ounces of malt liquor, a 5 ounce glass of table wine, or a 1.5 ounce shot of liquor (like scotch, gin, or vodka). Never 2. How many drinks containing alcohol did you have on a typical day when you were drinking in the past year? Response not required due to responses to other questions. 3. How often did you have six or more drinks on one occasion in the past year? Response not required due to responses to other questions. Depression Screening: Perform PHQ-2 A PHQ-2 screen was performed. The score was 0 which is a negative screen for depression. Over the past two weeks, how often have you been bothered by the following problems? 1. Little interest or pleasure in doing things Not at all 2. Feeling down, depressed, or hopeless Not at all Fall Screen: Patient was asked if he/she has had any falls within the past 12 months. Patients states no falls in past 12 months. Teaching Method: Verbal discussion Education Topic: Falls Risk Level of Understanding: Good Foot Exam: PAVE: A complete foot check was completed at this encounter. Visual exam results: Abnormal Observations: Hammertoes Left 2nd toe. Healing scab left great toe. Pedal Pulses exam results: Normal/Present Sensation exam results: Normal/Intact to monofilament The following risk level was identified for this patient: +POD RISK SCORE+ --LEVEL 1 - (LOW RISK) Foot deformity or -POD RISK SCORE- LEVEL 1 FOOT EDUCATION: 1. Advised patient not to walk barefoot. Instructed the patient to pay close attention to the style and fit of shoes. 2. Explained the importance of daily foot checks. Explained that loss of sensation leads to callouses. Callouses break down, which result in ulcers that may lead to gangrene and amputation. 3. Stressed the importance of daily foot hygiene. Warm (not hot) bathing of the feet, complete drying and thorough inspection for changes in the condition of the skin constitute daily foot care. Demonstrated how to do a thorough foot check. 4. Emphasized the use of clean, non-restrictive socks/stockings and well fitting shoes. 5. Stressed the importance of immediate follow-up of any foot injuries or ulcers. Explained that he/she should be non-weight bearing whenever there are lesions on the foot, to prevent cellular damage. Level of Understanding: Good Frail/Elderly Screen: ADL Screen Record INDEX of ADL. Score = 18 1. Bathing: either sponge bath, tub bath or shower. Receives no assistance (gets in and out of tub by self, if tub is usual means of bathing). 2. Dressing: gets clothes from closets and drawers, including under-clothes, outer garments and using fasteners (including braces if worn). Gets clothes and dresses self without assistance. 3. Toileting: going to the toilet room for bowel and urine elimination; cleaning self after elimination and arranging clothes. (May use cane, walker, or wheelchair, and manage bedpan or commode, emptying same next morning). No assistance needed. 4. Transfer: Moves in and out of bed, or chair, without assistance (may use support object like cane or walker). 5. Continence: Controls urination and bowel movement completely by self. 6. Feeding: Feeds self without assistance. IADL Screen: Ability to use telephone: (1 point) Operates Telephone on own initiative; looks up and dials numbers. Shopping: (1 point) Takes care of all shopping needs independently. Food preparation: (1 point) Plans, prepares, and serves adequate meals independently. Housekeeping: (1 point) Maintains house alone with occasional assistance (heavy work). Laundry: (1 point) Does personal laundry completely. Mode of transportation: (1 point) Travels independently on public transportation or drives own car. Responsibility for own medications: (1 point) Is responsible for taking medications in correct dosages at correct times. Ability to handle finances: (1 point) Manages financial matters independently (budgets, writes checks, pays rent and bills, goes to bank); collects and keeps track of income. Total score: 8 points 8 = High function, independent 0 = Low function, dependent Patient refused screening Patient Education Documentation: LEARNING NEEDS ASSESSMENT: Learning Preference: Visual Hearing Hands-on Written (in hoh language) Barriers to Learning: No Barriers to Learning Social Influences Related to Educational Needs: No social barriers to learning RSV Immunization: Respiratory Syncytial Virus (RSV) Vaccine: Refused [employer] (Abrysvo, RSVpreF vaccine). Immunization: RSV, BIVALENT, PROTEIN SUBUNIT RSVPREF, DILUENT RECONSTITUTED, 0.5 ML, PF Refusal Reason: PATIENT DECISION Patient refuses all immunization(s) in the RSV group Date Documented: 09/24/24 08:40 Suicide Screen: C-SSRS Screening [place] Suicide Severity Rating Scale (C-SSRS) screener 1. Over the past month, have you wished you were or wished you could go to sleep and not wake up? No 2. Over the past month, have you had any actual thoughts of killing yourself? No 3. Over the past month, have you been thinking about how you might do this? Response not required due to responses to other questions. 4. Over the past month, have you had these thoughts and had some intention of acting on them? Response not required due to responses to other questions. 5. Over the past month, have you started to work out or worked out the details of how to kill yourself? Response not required due to responses to other questions. 6. If yes, at any time in the past month did you intend to carry out this plan? Response not required due to responses to other questions. 7. In your lifetime, have you ever done anything, started to do anything, or prepared to do anything to end your life (for example, collected pills, obtained a gun, gave away valuables, went to the roof but didn't jump)? No 8. If YES, was this within the past 3 months? Response not required due to responses to other questions. Tobacco Use Screening: The patient is a former cigarette smoker. The patient has never used other types of tobacco. /[email or web address]/ STEVE FARIAS LICENSED PRACTICAL NURSE Signed: 09/24/2024 08:42 STEVE FARIAS [facility]
--- OUTSIDE RECORDS SUMMARY | 2024-09-24 05:15 | XMS_ITS | Continuity of Care Document ---
Author Name [facility] Organization [facility] Care Team Providers Care Neon Sign Installer Name Role Phone [facility] Unavailable Unavailable Problems Combined list of problems from Department of [facility] and [facility] facilities. It does not include entries that were removed or entered in error. 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 [facility] Hyperlipidemia Active Condition [facility] Hypothyroid Active Condition [facility] Murmur Active Condition [facility] Diagnosis: ICD-10-CM E03.9 Hypothyroidism, unspecified Active Diagnosis [facility] Diagnosis: ICD-10-CM Z23 Encounter for immunization Active Diagnosis [facility] Diagnosis: ICD-10-CM E11.9 Type 2 diabetes mellitus without complications Active Diagnosis [facility] Medications Combined list of outpatient medications from Department [facility] and [facility] facilities.Medications provided include 1) outpatient medications from the last 15 months, and 2) patient-reported medications. Medication Details Route Status Patient Instructions Prescription Expires Prescription Number Last Dispense Date Ordering Provider Order Date Order Qty Source ASPIRIN 81MG TAB,EC TAKE ONE TABLET BY MOUTH EVERY DAY ORAL ACTIVE [facility]UBREE SHAH [facility] ATORVASTATI N [place] 20MG TAB TAKE ONE TABLET BY MOUTH AT BEDTIME ORAL ACTIVE AUBREE SHAH [facility] CARVEDILOL 3.125MG TAB TAKE ONE TABLET BY MOUTH TWICE A DAY ORAL ACTIVE AUBREE SHAH 2019 [facility] CLOPIDOGREL BISULFATE 75MG TAB TAKE ONE TABLET BY MOUTH EVERY DAY ORAL ACTIVE AUBREE SHAH 2019 [facility] GLIPIZIDE 5MG TAB,SA TAKE ONE TABLET BY MOUTH TWICE A DAY ORAL ACTIVE ALYSSA, AUBREE R 2019 [facility] ISOSORBIDE MONONITRATE 60MG TAB,SA TAKE ONE TABLET BY MOUTH EVERY DAY ORAL ACTIVE AUBREE SHAH R 2023 [facility] LEVOTHYROXI NE NA 50MCG TAB (SYNTHROID) TAKE ONE TABLET BY MOUTH EVERY MORNING, ON AN EMPTY STOMACH ORAL ACTIVE AUBREE SHAH R 2021 [facility] LISINOPRIL 2.5MG TAB TAKE ONE TABLET BY MOUTH EVERY DAY ORAL ACTIVE ALYSSAAUBREE IZAGUIRRE R 2019 [facility] MAGNESIUM OXIDE 250MG TAB TAKE ONE TABLET BY MOUTH ORAL ACTIVE Paolo KARIMI 2024 [facility] METFORMIN HCL 1000MG TAB TAKE ONE TABLET BY MOUTH TWICE A DAY WITH MEALS ORAL ACTIVE AUBREE SHAH R 2019 [facility] MONTELUKAST NA 10MG TAB TAKE ONE TABLET BY MOUTH AT BEDTIME ORAL ACTIVE AUBREE SHAH R 2019 [facility] MULTIVIT/OP HTH AREDS2/LUTE IN/ZEAXANTH IN CAP/TAB TAKE 1 CAPSULE BY MOUTH EVERY DAY ORAL ACTIVE AUBREE SHAH R 2022 [facility] NITROGLYCER IN 0.4MG TAB,SUBLING UAL DISSOLVE ONE TABLET UNDER THE TONGUE PRN SUBLIN GUAL ACTIVE AUBREE SHAH R 2019 [facility] RANOLAZINE 500MG TAB,SA TAKE ONE TABLET BY MOUTH EVERY 12 HOURS ORAL ACTIVE Paolo KARIMI 2024 [facility] Immunizations Combined list of available immunizations from the Department of Defense and [facility] Affairs facilities. Immunization Series Date Given Administered By Site Reaction Lot Number CVX Code Drug Consumer Loan Manager Status Comments Source COVID-19 ([employer]), MRNA, LNP-S, PF, MUNDO-SUCROSE, 30 MCG/0.3 ML (AGES 12+ YEARS) 2023 309 complet ed HISTORICA L INFORMATI ON - FROM OTHER REGISTRY, [facility] INFLUENZA, HIGH-DOSE, TRIVALENT, PF 2023 STEVE FARIAS LEFT DELTO ID [id number] A 135 complet ed ADMINISTE RED AT IN, Patient tolerated injection well. [facility] COVID-19 ([employer]), MRNA, LNP-S, PF, MUNDO-SUCROSE, 30 MCG/0.3 ML (AGES 12+ YEARS) 1 2023 STEVE FARIAS RIGHT DELTO ID [id number] complet ed ADMINISTE RED AT IN, Patient tolerated injection well. [facility] INFLUENZA, HIGH-DOSE, QUADRIVALENT 2022 DONYA SIDHU [place] LEFT DELTO ID [id number] A 197 complet ed ADMINISTE RED AT IN, [facility] INFLUENZA, HIGH-DOSE, QUADRIVALENT 6 2021 197 complet ed HISTORICA L INFORMATI ON - FROM OTHER REGISTRY, [facility] INFLUENZA, UNSPECIFIED FORMULATION 2021 88 complet ed HISTORICA L INFORMATI ON - FROM PATIENT'S RECALL, [facility] PNEUMOCOCCAL CONJUGATE PCV20, POLYSACCHARID E [id number] CONJUGATE, ADJUVANT, PF 2021 216 complet ed [facility] COVID-19 ([employer]), MRNA, LNP-S, PF, 30 MCG/0.3 ML DOSE 3 2020 208 complet ed [facility] INFLUENZA, HIGH DOSE SEASONAL 5 2020 135 complet ed HISTORICA L INFORMATI ON - FROM OTHER REGISTRY, [facility] INFLUENZA, UNSPECIFIED FORMULATION 2020 88 complet ed [facility] COVID-19 ([employer]), MRNA, LNP-S, PF, 30 MCG/0.3 ML DOSE 2 2020 208 complet ed [facility] COVID-19 ([employer]), MRNA, LNP-S, PF, 30 MCG/0.3 ML DOSE 1 2020 208 complet ed [facility] INFLUENZA, HIGH-DOSE, QUADRIVALENT 4 2019 197 complet ed HISTORICA L INFORMATI ON - FROM OTHER REGISTRY, [facility] PNEUMOCOCCAL POLYSACCHARID E PPV23 1 2019 33 complet ed HISTORICA L INFORMATI ON - FROM OTHER REGISTRY, [facility] TDAP 1 2019 115 complet ed HISTORICA L INFORMATI ON - FROM OTHER REGISTRY, [facility] PNEUMOCOCCAL POLYSACCHARID E PPV23 2019 33 complet ed [facility] TDAP 2019 115 complet ed [facility] INFLUENZA, HIGH DOSE SEASONAL 3 2018 135 complet ed HISTORICA L INFORMATI ON - FROM OTHER REGISTRY, [facility] ZOSTER RECOMBINANT 2018 187 complet ed [facility] ZOSTER RECOMBINANT 2018 187 complet ed [facility] INFLUENZA, SEASONAL, INJECTABLE 2 2017 141 complet ed HISTORICA L INFORMATI ON - FROM OTHER REGISTRY, [facility] INFLUENZA (HISTORICAL) 2017 88 complet ed local pharm [facility] INFLUENZA, SEASONAL, INJECTABLE 1 2016 141 complet ed HISTORICA L INFORMATI ON - FROM OTHER REGISTRY, [facility] ZOSTER LIVE 1 2016 121 complet ed HISTORICA L INFORMATI ON - FROM OTHER REGISTRY, [facility] Results Combined list of recent chemistry, hematology and other laboratory results from Department of Defense and Veterans Affairs, ranging from 15 months to all on record, depending upon the facility. Order Name Results Value Reference Range Date Interpretation Specimen Comments Source TSH THYROTROPIN [UNITS/VOLU ME] IN SERUM OR PLASMA BY DETECTION LIMIT <= 0.005 MIU/L 3.250 u[IU]/ mL 0.350 - 4.940 09/24 Specimen Type: PLASMA No comment entered. Ordering Provider: YARA KARIMI Report Released Date/Time: September 20, 2024 02:14 PM Reporting Lab: [place] [phone] Performing Lab: [place] [phone] [facility] IRON GROUP IRON BINDING CAPACITY [MASS/VOLUM E] IN SERUM OR PLASMA 219 ug/dL 250 - 425 09/24 L Specimen Type: SERUM No comment entered. Ordering Provider: YARA KARIMI Report Released Date/Time: September 20, 2024 02:14 PM Reporting Lab: [address] [phone] Performing Lab: [place] [phone] [facility] IRON GROUP IRON [MASS/VOLUM E] IN SERUM OR PLASMA 65 ug/dL 65 - 175 09/24 Specimen Type: SERUM No comment entered. Ordering Provider: YARA KARIMI Report Released Date/Time: September 20, 2024 02:14 PM Reporting Lab: [place] [phone] Performing Lab: [place] [id number] IRON GROUP IRON/IRON BINDING CAPACITY.TO GODWIN [MASS RATIO] IN SERUM OR PLASMA 30 20 - 50 09/24 Specimen Type: SERUM No comment entered. Ordering Provider: YARA KARIMI Report Released Date/Time: September 20, 2024 02:14 PM Reporting Lab: [place] [phone] Performing Lab: [place] [id number] FERRITIN FERRITIN [MASS/VOLUM E] IN SERUM OR PLASMA 100.1 ng/mL 21.8 - 274.6 09/24 Specimen Type: PLASMA No comment entered. Ordering Provider: YARA KARIMI Report Released Date/Time: September 20, 2024 02:14 PM Reporting Lab: [place] [phone] Performing Lab: [place] [phone] FOLATE FOLATE [MASS/VOLUM E] IN SERUM OR PLASMA 15.7 ng/mL 7.0 - 31.4 09/24 Specimen Type: SERUM No comment entered. Ordering Provider: YARA KARIMI Report Released Date/Time: September 20, 2024 02:14 PM Reporting Lab: [place] [phone] Performing Lab: [place] [phone] [place] [address] VITAMIN B12 COBALAMIN (VITAMIN B12) [MASS/VOLUM E] IN SERUM OR PLASMA 578 pg/mL 213 - 816 09/24 Specimen Type: PLASMA Comment: VITB12 Levels above 300 or 400 pg/mL are rarely associated with VITB12 vitamin B12 deficiency induced hematologic or neurologic VITB12 disease, respectivel y. Recommended usage in conjunction with VITB12 information obtained from clinical evaluation and other VITB12 testing. Ordering Provider: YARA KARIMI Report Released Date/Time: September 20, 2024 02:14 PM Reporting Lab: [place] [phone] Performing Lab: [place] [phone] [facility] COMPREHEN SIVE METABOLIC PANEL ALBUMIN [MASS/VOLUM E] IN SERUM OR PLASMA 3.5 g/dL 3.5 - 4.8 09/17 Specimen Type: PLASMA Comment: GLUCOSE The ADA [...] 160-189 mg/dL VERY HIGH: >=190 Ordering Provider: JUSTIN SHAH Report Released Date/Time: September 28, 2023 09:26 AM Reporting Lab: [place] [phone] Performing Lab: [place] [phone] [facility] COMPREHEN SIVE METABOLIC PANEL ALKALINE PHOSPHATASE [ENZYMATIC ACTIVITY/VO LUME] IN SERUM OR PLASMA 102 U/L 40 - 150 09/17 Specimen Type: PLASMA Comment: GLUCOSE The ADA [...] 160-189 mg/dL VERY HIGH: >=190 Ordering Provider: JUSTIN SHAH R Report Released Date/Time: September 28, 2023 09:26 AM Reporting Lab: [address] [phone] Performing Lab: [place] [phone] [place] [address] COMPREHEN SIVE METABOLIC PANEL ALANINE AMINOTRANSF ERASE [ENZYMATIC ACTIVITY/VO LUME] IN SERUM OR PLASMA 17 U/L 0 - 55 09/17 Specimen Type: PLASMA Comment: GLUCOSE The ADA [...] 160-189 mg/dL VERY HIGH: >=190 Ordering Provider: JUSTIN SHAH Report Released Date/Time: September 28, 2023 09:26 AM Reporting Lab: [address] [address] Performing Lab: [place] [phone] [facility] COMPREHEN SIVE METABOLIC PANEL ASPARTATE AMINOTRANSF ERASE [ENZYMATIC ACTIVITY/VO LUME] IN SERUM OR PLASMA 24 U/L 10 - 40 09/17 Specimen Type: PLASMA Comment: GLUCOSE The ADA [...] 160-189 mg/dL VERY HIGH: >=190 Ordering Provider: JUSTIN SHAH Report Released Date/Time: September 28, 2023 09:26 AM Reporting Lab: [address] [phone] Performing Lab: [place] [phone] [facility] UREA NITROGEN [MASS/VOLUM E] IN SERUM OR PLASMA 24.9 mg/dL 8.4 - 25.7 09/17 Specimen Type: PLASMA Comment: GLUCOSE The ADA [...] 160-189 mg/dL VERY HIGH: >=190 Ordering Provider: JUSTIN SHAH Report Released Date/Time: September 28, 2023 09:26 AM Reporting Lab: [address] [phone] Performing Lab: [address] [phone] [facility] COMPREHEN SIVE METABOLIC PANEL CALCIUM [MASS/VOLUM E] IN SERUM OR PLASMA 9.2 mg/dL 8.6 - 10.3 09/17 Specimen Type: PLASMA Comment: GLUCOSE The ADA [...] 160-189 mg/dL VERY HIGH: >=190 Ordering Provider: JUSTIN SHAH Report Released Date/Time: September 28, 2023 09:26 AM Reporting Lab: [address] [phone] Performing Lab: [place] [phone] [facility] COMPREHEN SIVE METABOLIC PANEL CREATININE [MASS/VOLUM E] IN SERUM OR PLASMA 1.5 mg/dL 0.7 - 1.3 09/17 H Specimen Type: PLASMA Comment: GLUCOSE The ADA [...] 160-189 mg/dL VERY HIGH: >=190 Ordering Provider: JUSTIN SHAH Report Released Date/Time: September 28, 2023 09:26 AM Reporting Lab: [address] [address] Performing Lab: [place] [phone] [facility] COMPREHEN SIVE METABOLIC PANEL CARBON DIOXIDE, TOTAL [MOLES/VOLU ME] IN SERUM OR PLASMA 25 mmol/L 22 - 30 09/17 Specimen Type: PLASMA Comment: GLUCOSE The ADA [...] 160-189 mg/dL VERY HIGH: >=190 Ordering Provider: JUSTIN SHAH Report Released Date/Time: September 28, 2023 09:26 AM Reporting Lab: [place] [phone] Performing Lab: [place] [phone] [facility] COMPREHEN SIVE METABOLIC PANEL GLUCOSE [MASS/VOLUM E] IN SERUM OR PLASMA 83 mg/dL 74 - 99 09/17 Specimen Type: PLASMA Comment: GLUCOSE The ADA [...] 160-189 mg/dL VERY HIGH: >=190 Ordering Provider: JUSTIN SHAH R Report Released Date/Time: September 28, 2023 09:26 AM Reporting Lab: [place] [phone] Performing Lab: [place] [phone] [facility] COMPREHEN SIVE METABOLIC PANEL PROTEIN [MASS/VOLUM E] IN SERUM OR PLASMA 6.1 g/dL 6.4 - 8.3 09/17 L Specimen Type: PLASMA Comment: GLUCOSE The ADA [...] 160-189 mg/dL VERY HIGH: >=190 Ordering Provider: JUSTIN SHAH R Report Released Date/Time: September 28, 2023 09:26 AM Reporting Lab: [address] [phone] Performing Lab: [place] [phone] [facility] COMPREHEN SIVE METABOLIC PANEL SODIUM [MOLES/VOLU ME] IN SERUM OR PLASMA 142 mmol/L 134 - 144 09/17 Specimen Type: PLASMA Comment: GLUCOSE The ADA [...] 160-189 mg/dL VERY HIGH: >=190 Ordering Provider: JUSTIN SHAH Report Released Date/Time: September 28, 2023 09:26 AM Reporting Lab: [place] [phone] Performing Lab: [place] [phone] [facility] CHLORIDE [MOLES/VOLU ME] IN SERUM OR PLASMA 111 mmol/L 99 - 112 09/17 Specimen Type: PLASMA Comment: GLUCOSE The ADA [...] 160-189 mg/dL VERY HIGH: >=190 Ordering Provider: JUSTIN SHAH Report Released Date/Time: September 28, 2023 09:26 AM Reporting Lab: [place] [phone] Performing Lab: [place] [phone] [facility] COMPREHEN SIVE METABOLIC PANEL BILIRUBIN.T OTAL [MASS/VOLUM E] IN SERUM OR PLASMA 0.7 mg/dL 0.2 - 1.2 09/17 Specimen Type: PLASMA Comment: GLUCOSE The ADA [...] 160-189 mg/dL VERY HIGH: >=190 Ordering Provider: JUSTIN SHAH Report Released Date/Time: September 28, 2023 09:26 AM Reporting Lab: [place] [phone] Performing Lab: [place] [phone] [facility] COMPREHEN SIVE METABOLIC PANEL POTASSIUM [MOLES/VOLU ME] IN SERUM OR PLASMA 4.9 mmol/L 3.5 - 5.1 09/17 Specimen Type: PLASMA Comment: GLUCOSE The ADA [...] 160-189 mg/dL VERY HIGH: >=190 Ordering Provider: JUSTIN SHAH Report Released Date/Time: September 28, 2023 09:26 AM Reporting Lab: [address] [phone] Performing Lab: [address] [phone] [facility] ANION GAP IN SERUM OR PLASMA 11 mmol/L - 09/17 Specimen Type: PLASMA Comment: GLUCOSE The ADA [...] 160-189 mg/dL VERY HIGH: >=190 Ordering Provider: JUSTIN SHAH Report Released Date/Time: September 28, 2023 09:26 AM Reporting Lab: [address] [address] Performing Lab: [address] [phone] [facility] GLOMERULAR FILTRATION RATE/1.73 SQ M.PREDICTED [VOLUME RATE/AREA] IN SERUM, PLASMA OR BLOOD BY CREATININE- BASED FORMULA (CKD-EPI 2020) 45 09/17 Specimen Type: PLASMA Comment: GLUCOSE The ADA [...] 160-189 mg/dL VERY HIGH: >=190 Ordering Provider: JUSTIN SHAH Report Released Date/Time: September 28, 2023 09:26 AM Reporting Lab: [place] [phone] Performing Lab: [place] [phone] LIPID PROFILE CHOLESTEROL [MASS/VOLUM E] IN SERUM OR PLASMA 124 mg/dL 0 - 199 09/17 Specimen Type: PLASMA Comment: GLUCOSE The ADA [...] 160-189 mg/dL VERY HIGH: >=190 Ordering Provider: JUSTIN SHAH Report Released Date/Time: September 28, 2023 09:26 AM Reporting Lab: [address] [address] Performing Lab: [place] [phone] [facility] LIPID PROFILE CHOLESTEROL IN LDL [MASS/VOLUM E] IN SERUM OR PLASMA BY DIRECT ASSAY 65 mg/dL 0 - 99 09/17 Specimen Type: PLASMA Comment: GLUCOSE The ADA [...] 160-189 mg/dL VERY HIGH: >=190 Ordering Provider: JUSTIN SHAH Report Released Date/Time: September 28, 2023 09:26 AM Reporting Lab: [address] [phone] Performing Lab: [address] [address] [facility] LIPID PROFILE CHOLESTEROL IN HDL [MASS/VOLUM E] IN SERUM OR PLASMA 48 mg/dL 40 09/17 Specimen Type: PLASMA Comment: GLUCOSE The ADA [...] 160-189 mg/dL VERY HIGH: >=190 Ordering Provider: JUSTIN SHAH Report Released Date/Time: September 28, 2023 09:26 AM Reporting Lab: [place] [phone] Performing Lab: [place] [phone] [facility] LIPID PROFILE TRIGLYCERID E [MASS/VOLUM E] IN SERUM OR PLASMA 84 mg/dL 0 - 149 09/17 Specimen Type: PLASMA Comment: GLUCOSE The ADA [...] 160-189 mg/dL VERY HIGH: >=190 Ordering Provider: JUSTIN SHAH Report Released Date/Time: September 28, 2023 09:26 AM Reporting Lab: [place] [phone] Performing Lab: [place] [phone] [facility] CBC LEUKOCYTES [#/VOLUME] IN BLOOD BY AUTOMATED COUNT 5.7 10*3/u L 3.6 - 11.0 09/17 Specimen Type: BLOOD No comment entered. Ordering Provider: JUSTIN SHAH Report Released Date/Time: September 28, 2023 09:26 AM Reporting Lab: [place] [phone] Performing Lab: [place] [phone] [facility] CBC ERYTHROCYTE S [#/VOLUME] IN BLOOD BY AUTOMATED COUNT 3.69 10*6/u L 4.47 - 5.83 09/17 L Specimen Type: BLOOD No comment entered. Ordering Provider: JUSTIN SHAH Report Released Date/Time: September 28, 2023 09:26 AM Reporting Lab: [place] [phone] Performing Lab: [place] [phone] [facility] CBC HEMOGLOBIN [MASS/VOLUM E] IN BLOOD 12.0 g/dL 13.6 - 17.4 09/17 L Specimen Type: BLOOD No comment entered. Ordering Provider: JUSTIN SHAH Report Released Date/Time: September 28, 2023 09:26 AM Reporting Lab: [place] [phone] Performing Lab: [place] [phone] [facility] CBC HEMATOCRIT [VOLUME FRACTION] OF BLOOD BY AUTOMATED COUNT 35.6 40.0 - 51.0 09/17 L Specimen Type: BLOOD No comment entered. Ordering Provider: JUSTIN SHAH Report Released Date/Time: September 28, 2023 09:26 AM Reporting Lab: [place] [phone] Performing Lab: [place] [phone] [place] [address] CBC MCV [ENTITIC VOLUME] BY AUTOMATED COUNT 96.3 fL 80.0 - 96.0 09/17 H Specimen Type: BLOOD No comment entered. Ordering Provider: JUSTIN SHAH Report Released Date/Time: September 28, 2023 09:26 AM Reporting Lab: [place] [phone] Performing Lab: [place] [phone] [place] [address] CBC MCH [ENTITIC MASS] BY AUTOMATED COUNT 32.5 pg 27.0 - 31.0 09/17 H Specimen Type: BLOOD No comment entered. Ordering Provider: JUSTIN SHAH Report Released Date/Time: September 28, 2023 09:26 AM Reporting Lab: [place] [phone] Performing Lab: [place] [phone] [facility] CBC MCHC [MASS/VOLUM E] BY AUTOMATED COUNT 33.7 g/dL 31.5 - 36.5 09/17 Specimen Type: BLOOD No comment entered. Ordering Provider: JUSTIN SHAH Report Released Date/Time: September 28, 2023 09:26 AM Reporting Lab: [place] [phone] Performing Lab: [place] [phone] CBC PLATELETS [#/VOLUME] IN BLOOD BY AUTOMATED COUNT 155 10*3/u L 150 - 400 09/17 Specimen Type: BLOOD No comment entered. Ordering Provider: JUSTIN SHAH Report Released Date/Time: September 28, 2023 09:26 AM Reporting Lab: [place] [phone] Performing Lab: [place] [phone] CBC LYMPHOCYTES /100 LEUKOCYTES IN BLOOD BY AUTOMATED COUNT 20.1 21.0 - 51.0 09/17 L Specimen Type: BLOOD No comment entered. Ordering Provider: JUSTIN SHAH Report Released Date/Time: September 28, 2023 09:26 AM Reporting Lab: [place] [phone] Performing Lab: [place] [phone] CBC MONOCYTES/1 00 LEUKOCYTES IN BLOOD BY AUTOMATED COUNT 9.2 4.0 - 8.0 09/17 H Specimen Type: BLOOD No comment entered. Ordering Provider: JUSTIN SHAH Report Released Date/Time: September 28, 2023 09:26 AM Reporting Lab: [place] [phone] Performing Lab: [place] [phone] CBC NUCLEATED ERYTHROCYTE S/100 LEUKOCYTES [RATIO] IN BLOOD BY MANUAL COUNT 0.1 /100{W BCs} 09/17 Specimen Type: BLOOD No comment entered. Ordering Provider: JUSTIN SHAH Report Released Date/Time: September 28, 2023 09:26 AM Reporting Lab: [place] [phone] Performing Lab: [place] [phone] CBC ERYTHROCYTE DISTRIBUTIO N WIDTH [RATIO] BY AUTOMATED COUNT 14.4 11.2 - 15.8 09/17 Specimen Type: BLOOD No comment entered. Ordering Provider: JUSTIN SHAH Report Released Date/Time: September 28, 2023 09:26 AM Reporting Lab: [place] [phone] Performing Lab: [place] [phone] CBC NEUTROPHILS /100 LEUKOCYTES IN BLOOD BY AUTOMATED COUNT 67.5 54.0 - 78.0 09/17 Specimen Type: BLOOD No comment entered. Ordering Provider: JUSTIN SHAH Report Released Date/Time: September 28, 2023 09:26 AM Reporting Lab: [place] [phone] Performing Lab: [place] [phone] CBC EOSINOPHILS /100 LEUKOCYTES IN BLOOD BY AUTOMATED COUNT 2.4 0.0 - 3.0 09/17 Specimen Type: BLOOD No comment entered. Ordering Provider: JUSTIN SHAH Report Released Date/Time: September 28, 2023 09:26 AM Reporting Lab: [place] [phone] Performing Lab: [place] [phone] CBC BASOPHILS/1 00 LEUKOCYTES IN BLOOD BY AUTOMATED COUNT 0.8 0.0 - 3.0 09/17 Specimen Type: BLOOD No comment entered. Ordering Provider: JUSTIN SHAH Report Released Date/Time: September 28, 2023 09:26 AM Reporting Lab: [place] [phone] Performing Lab: [place] [phone] CBC LYMPHOCYTES [#/VOLUME] IN BLOOD BY AUTOMATED COUNT 1.2 10*3/u L 0.8 - 5.0 09/17 Specimen Type: BLOOD No comment entered. Ordering Provider: JUSTIN SHAH Report Released Date/Time: September 28, 2023 09:26 AM Reporting Lab: [place] [phone] Performing Lab: [place] [phone] [facility] CBC NEUTROPHILS [#/VOLUME] IN BLOOD 3.9 10*3/u L 1.9 - 8.6 09/17 Specimen Type: BLOOD No comment entered. Ordering Provider: JUSTIN SHAH Report Released Date/Time: September 28, 2023 09:26 AM Reporting Lab: [place] [phone] Performing Lab: [place] [phone] CBC BASOPHILS [#/VOLUME] IN BLOOD BY AUTOMATED COUNT 0.0 10*3/u L 0.0 - 0.3 09/17 Specimen Type: BLOOD No comment entered. Ordering Provider: JUSTIN SHAH Report Released Date/Time: September 28, 2023 09:26 AM Reporting Lab: [place] [phone] Performing Lab: [place] [phone] CBC MONOCYTES [#/VOLUME] IN BLOOD BY AUTOMATED COUNT 0.5 10*3/u L 0.1 - 0.9 09/17 Specimen Type: BLOOD No comment entered. Ordering Provider: JUSTIN SHAH Report Released Date/Time: September 28, 2023 09:26 AM Reporting Lab: [place] [phone] Performing Lab: [place] [phone] CBC EOSINOPHILS [#/VOLUME] IN BLOOD BY AUTOMATED COUNT 0.1 10*3/u L 0.0 - 0.3 09/17 Specimen Type: BLOOD No comment entered. Ordering Provider: JUSTIN SHAH Report Released Date/Time: September 28, 2023 09:26 AM Reporting Lab: [place] [phone] Performing Lab: [address] [facility] PLATELET MEAN VOLUME [ENTITIC VOLUME] IN BLOOD BY AUTOMATED COUNT 8.9 fL 7.4 - 11.4 09/17 Specimen Type: BLOOD No comment entered. Ordering Provider: JUSTIN SHAH Report Released Date/Time: September 28, 2023 09:26 AM Reporting Lab: [address] [id number] Performing Lab: [place] [phone] [facility] HEMOGLOBI N A1C HEMOGLOBIN A1C/HEMOGLO BIN.TOTAL IN BLOOD 6.9 3.6 - 5.7 09/17 H Specimen Type: BLOOD Comment: Values obtained from A1C measurement s can vary. For typical A1C assays, a reported value of 7.0 could actually be between 6.72 and 7.28 if measured by a reference method. A reported value of 9.0 could actually be between 8.73 and 9.27. Ref: http://www. ngsp.org/[place] Pdata.asp Ordering Provider: JUSTIN SHAH Report Released Date/Time: September 28, 2023 09:26 AM Reporting Lab: [address] [id number] Performing Lab: [place] [phone] [facility] MAGNESIUM MAGNESIUM [MASS/VOLUM E] IN SERUM OR PLASMA 1.6 mg/dL 1.6 - 2.6 09/17 Specimen Type: PLASMA Comment: GLUCOSE The ADA recommends a fasting glucose of 99 mg/dL as the GLUCOSE upper limit of normal. TP Per package insert reference range for recumbent is 6.0 to 7.8 TP g/dL. Plasma samples will generally have higher values (about TP 0.2 to 0.4 g/dL higher) due to presence of fibrinogen. Ordering Provider: JUSTIN SHAH Report Released Date/Time: September 28, 2023 09:26 AM Reporting Lab: [address] [phone] Performing Lab: [place] [phone] [facility] Vital Signs Combined list of inpatient and outpatient Vital Signs from Department of Defense and Veterans Affairs, ranging from 12 months to all on record, depending upon the facility. Vital Sign Value Date Comments Source SYSTOLIC BLOOD PRESSURE 113 09/24/2024 08:16:36 [facility] DIASTOLIC BLOOD PRESSURE 72 09/24/2024 08:16:36 [facility] PULSE OXIMETRY 97 09/24/2024 08:16:36 [facility] WEIGHT 171.2 09/24/2024 08:16:36 [facility] BMI 25 kg/m2 09/24/2024 08:16:36 [facility] PAIN 0 09/24/2024 08:16:36 [facility] TEMPERATURE 98.1 09/24/2024 08:16:36 [facility] PULSE 66 09/24/2024 08:16:36 [facility] RESPIRATION 16 09/24/2024 08:16:36 [facility] TEMPERATURE 97.6 03/02/2024 10:49:02 [facility] Encounters Combined list of: 1) Encounters from Department of [facility] Affairs facilities going backup to the last 18 months, not all [place] inpatient encounters are included; 2) Encounters from the Department of [facility] facilities going backup to 280 months. 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 ations ALYSSA,A FILEMON R 09/27 [facility] Outpatient Encounter [id number] 09/27 [facility] IMMUNIZATI ON ADMIN [id number] Diagnos is: ICD-10- CM Z23 Encount er for immuniz ation ABDIAZIZ FARIAS 03/02 [facility] Outpatient Encounter [id number] 05/07 [facility] OFFICE O/P EST LOW 20 MIN [id number] Diagnos is: ICD-10- CM E03.9 Hypothy roidism , unspeci fied AMBAR KARIMIABETH A 09/24 [facility] Social History Combined list of available smoking, tobacco, and other social history from Department of Defense and Veterans Affairs facilities. Social History Type Response Date Comment Sourc e Tobacco smoking status NYIS VA-TOBACCO USE FORMER CIGARETTES 09/24/2024 [facility] History of tobacco use VA-TOBACCO NEVER USED OTHER TYPE 09/24/2024 [facility] History of tobacco use VA-TOBACCO FORMER USER 10/27/2022 [facility] History of tobacco use VA-TOBACCO FORMER USER 10/23/2021 [facility] History of tobacco use VA-TOBACCO FORMER USER 01/08/2020 [facility] History of tobacco use VA-TOBACCO NEVER USED 08/24/2018 [facility]
--- OUTSIDE RECORDS SUMMARY | 2024-11-13 09:50 | XMS_ITS | Encounter Summary ---
Author Organization [facility] Address [address] [place] [address] Phone Care Team Providers Care Senior Physical Therapist Name Role Phone Blake Kothari DO Primary Care Provider [phone] Reason for Referral * Consultation (Routine) - Authorized Specialty Diagnoses / Procedures Referred By Contac t Referred To Contact Cardiology Diagnoses ASHD (arteriosclerotic heart disease) Procedures Follow Up In Cardiology Renny Lynch DO [address] [place] [address] [address], [address] [address] Phone: tel: fax: Renny Lynch DO [address] [place] [address] 2, [address] [address] Phone: tel: fax: Referral ID Status Reason Start Date Expiration Date V isits Requested Visits Authorized [id number] Authorized 11/13/2024 11/13/2025 1 1 Reason for Visit * Reason Comments Follow-up 8 month, arterioscle rotic heart disease * Consultation (Routine) - Authorized Specialty Diagnoses / Procedures Referred By Contac t Referred To Contact Cardiology Diagnoses ASHD (arteriosclerotic heart disease) Procedures Follow Up In Cardiology Renny Lynch DO [address] [place] [address] 2, [address] [address] Phone: tel: fax: Renny Lynch DO [address] [place] [address] 2, [address] [address] Phone: tel: fax: Referral ID Status Reason Start Date Expiration Date V isits Requested Visits Authorized [id number] Authorized 03/15/2024 03/15/2025 1 1 Encounter Details Date Type Department Care Team (Late st Contact Info) Description 11/13/2024 9:50 AM EDT Office Visit [facility] [address] [facility] [address] [place] [phone] Renny Lynch DO [address] [facility] [address] [place] [address] ASHD (arteriosclerotic heart disease); History of PTCA; Primary hypertension; Mixed hyperlipidemia; Angina, class I; Aortic valve insufficiency, etiology of cardiac valve disease unspecified; Abdominal aortic aneurysm (AAA) without rupture, unspecified part; BMI 26.0-26.9,adult; Former smoker Social History Tobacco Use Types Packs/Day Years Used Date Smoking Tobacco: Former Cigarettes Passive Smoke Exposure: Past Smokeless Tobacco: Never Alcohol Use Standard Drinks/Week Comments Not Currently 0 (1 standard drink = 0.6 oz pur e alcohol) Sex and Gender Information Value Date Recorded Sex Assigned at Not on file Legal Sex Male 1:16 PM EST Gender Identity Not on file Sexual Orientation Not on file documented as of this encounter Last Filed Vital Signs Vital Sign Reading Time Taken Comments Blood Pressure 118/82 11/13/2024 10:11 AM EDT Pulse 62 11/13/2024 10:11 AM EDT Temperature - - Respiratory Rate - - Oxygen Saturation - - Inhaled Oxygen Concentration - - Weight 76.4 kg (168 lb 6.4 oz) 11/13/2024 10:11 AM EDT Height 170.2 cm (5' 7 ) 11/13/2024 10:11 AM EDT Body Mass Index 26.38 11/13/2024 10:11 AM EDT documented in this encounter Patient Instructions * Patient Instructions* Villa Fair LPN - 11/13/2024 9:50 AM EDT Please bring all medicines, vitamins, and herbal supplements with you when you come to the office. Prescriptions will not be filled unless you are compliant with your follow up appointments or have a follow up appointment scheduled as per instruction of your physician. Refills should be requested at the time of your visit. BMI was above normal measurement. Current weight: 76.4 kg (168 lb 6.4 oz) Weight change since last visit (-) denotes wt loss -1.6 lbs Weight loss needed to achieve BMI 25: 9.1 Lbs Weight loss needed to achieve BMI 30: -22.7 Lbs Provided instructions on dietary changes Provided instructions on exercise. * Attachments The following attachments cannot be sent through Care Everywhere. * Heart Healthy Diet (Khmer) documented in this encounter Progress Notes * Renny Lynch, - 11/13/2024 9:50 AM EDT Chief Complaint Patient presents with Follow-up 8 month, arteriosclerotic heart disease Subjective Ever Klein is a 89 y.o. male 89-year-old gentleman returns for routine interventional cardiovascular assessment and management due to known severe three-vessel disease. Details of heart catheterization from July 2023 are reviewed. He has known severe disease, chronic occlusion of the RCA, patent LAD stents with restenosis in the mid LAD stent with chronic diffuse distal disease, chronic severe diagonal branch disease, SPAGHETT[employer] over the first OM branch, and progressive 85% of proximal circumflex, normal LV function. At that time we sent him to [facility] for consideration of CABG; and he was declined CABG. I saw him once in follow-up (routinely follows with [facility] General Cardiology); and this is the secondtime in follow-up. He denies angina or nitrate usage he remains on appropriate GDMT as reviewed His underlying comorbidities are noted for known previous revascularizations with myself, diabetes mellitus, hyperlipidemia. From an activity standpoint, he is cutting the lawn with a riding more, attending high school baseball games; has no issues with routine daily house chores or outdoor yard work (mild activity). Functional class is 2 at this time Recommendations, continue routine general cardiology surveillance; from a interventional standpointcontinue conservative management on current therapies I will follow-up again in 8 months Review of Systems All other systems reviewed and are negative. Vitals: 11/13/24 1011 BP: 118/82 BP Location: Left arm Patient Position: Sitting Pulse: 62 Weight: 76.4 kg (168 lb 6.4 oz) Height: 1.702 m (5' 7 ) Objective Physical Exam Constitutional: Appearance: Normal appearance. HENT: Nose: Nose normal. Neck: Vascular: No carotid bruit. Cardiovascular: Rate and Rhythm: Normal rate. Pulses: Normal pulses. Heart sounds: Murmur heard. Systolic murmur is present with a grade of 2/6. Pulmonary: Effort: Pulmonary effort is normal. Abdominal: General: Bowel sounds are normal. Palpations: Abdomen is soft. Musculoskeletal: General: Normal range of motion. Cervical back: Normal range of motion. Right lower leg: No edema. Left lower leg: No edema. Skin: General: Skin is warm and dry. Neurological: General: No focal deficit present. Mental Status: He is alert. Psychiatric: Mood and Affect: Mood normal. Behavior: Behavior normal. Thought Content: Thought content normal. Judgment: Judgment normal. Allergies Patient has no known allergies. Current Medications Current Outpatient Medications Medication Instructions aspirin 81 mg EC tablet 1 tablet, Daily atorvastatin (LIPITOR) 40 mg, Daily carvedilol (COREG) 3.125 mg, oral, 2 times daily (morning and late afternoon) glipiZIDE XL (GLUCOTROL XL) 5 mg, Daily isosorbide mononitrate ER (Imdur) 60 mg 24 hr tablet 1 tablet, Daily (0630) isosorbide mononitrate ER (IMDUR) 30 mg, oral, Daily lisinopril 5 mg, oral, Daily magnesium chloride (Slow-Mag) 71.5 mg tablet,delayed release (DR/EC) 1 tablet, Daily metFORMIN (GLUCOPHAGE) 500 mg, 2 times daily (morning and late afternoon) montelukast (Singulair) 10 mg tablet 1 tablet, Daily nitroglycerin (NITROSTAT) 0.4 mg, Every 5 min PRN ranolazine (RANEXA) 500 mg, 2 times daily vit A/vit C/vit E/zinc/copper (PRESERVISION AREDS ORAL) 1 tablet, Daily Assessment/Plan 1. ASHD (arteriosclerotic heart disease) Follow Up In Cardiology 2. History of PTCA 3. Primary hypertension 4. Mixed hyperlipidemia 5. Angina, class I 6. Abdominal aortic aneurysm (AAA) without rupture, unspecified part 7. BMI 26.0-26.9,adult 8. Former smoker Scribe Attestation By signing my name below, I, Villa Emerald DIAZ , Storme attest that this documentation has been prepared under the direction and in the presence of Michelle Lynch DO. Provider Attestation - Scribe documentation All medical record entries made by the Scribe were at my direction and personally dictated by me. Davonte reviewed the chart and agree that the record accurately reflects my personal performance of the history, physical exam, discussion and plan. documented in this encounter Miscellaneous Notes * Addendum Note - Villa Fair LPN - 11/13/2024 9:50 AM EDTAddended by: VILLA FAIR on: 11/13/2024 10:43 AM Modules accepted: Orders * Addendum Note - Renny Lynch DO - 11/13/2024 9:50 AM EDTAddended by: RENNY LYNCH on: 11/19/2024 10:52 AM Modules accepted: Orders documented in this encounter Plan of Treatment Upcoming Encounters Date Type Department Care Team (Late st Contact Info) Description 07/24/2025 10:10 AM EDT Office Visit [facility] [address] [facility] [address] [place] [address] Renny Lynch DO [address] [facility] [address], [facility] [address] [place] [address] documented as of this encounter Visit Diagnoses Diagnosis ASHD (arteriosclerotic heart disease) Coronary atherosclerosis of unspecified type of vessel, north fork or graft History of PTCA Postsurgical percutaneous transluminal coronary angioplasty status Primary hypertension Unspecified essential hypertension Mixed hyperlipidemia Angina, class I Other and unspecified angina pectoris Aortic valve insufficiency, etiology of cardiac valve disease unspecified Abdominal aortic aneurysm (AAA) without rupture, unspecified part BMI 26.0-26.9,adult Former smoker Personal history of tobacco use, presenting hazards to health documented in this encounter Additional Health Concerns Assessment Noted Time A fall risk assessment has been complete d for the patient 03/15/2024 9:28 AM EDT documented as of this encounter Care Teams Senior Physical Therapist Relationship Specialty Start Date End Date Blake Kothari DO [facility] [address] [place] [address] PCP - General Family Medicine 10/30/24 documented as of this encounter
--- OUTSIDE RECORDS SUMMARY | 2024-11-15 06:00 | XMS_ITS | Continuity of Care Document ---
Author Organization [facility] Address [address] [place] [address] Phone Care Team Providers Care Tender Labor Name Role Phone Blake Kothari DO Primary Care Provider Hossein Martin MD Attending Provider Blake Kothari DO Attending Provider Care Teams Patient Care Team Team Status: Active Member Role Status Dates Hossein Martin MD Founder And President Active Blake Kothari DO Primary Care Provider Active Visit Care Team Team Status: Inactive Member Role Status Dates Blake Kothari DO Primary Care Provider Active Sta rt: October 01, 2024 End: October 01, 2024 Hossein Martin MD Attending Provider Activ e Start: October 01, 2024 End: October 01, 2024 Visit Care Team Team Status: Inactive Member Role Status Dates Blake Kothari DO Primary Care Provider Active Sta rt: October 15, 2024 End: October 15, 2024 Blake Kothari DO Attending Provider Active Start: October 15, 2024 End: October 15, 2024 Patient Care Team Team Status: Inactive Member Role Status Dates Blake Kothari DO Primary Care Provider Active Sta rt: November 15, 2024 End: November 15, 2024 Blake Kothari DO Attending Provider Active Start: November 15, 2024 End: November 15, 2024 Chief Complaint and Reason for Visit Chief Complaint Admit Date 6 month F/U October 01, 2024 10:06 am E11.65 October 15, 2024 7:51a m 3 month f/u November 15, 2024 8:38a m Reason for Visit Admit Date Coronary artery disease with angina pect delfin October 01, 2024 10:06am Essential (primary) hypertension September 10:06am Diabetes November 15, 2024 8:38a m Allergies, Adverse Reactions, Alerts Allergen Type Severity Reaction Last Updated Verified Status sitagliptin Allergy Unknown constipation / ineffective October 01, 2024 10:16am Yes Active Social History Smoking Status Status Start Date End Date Date of Observa tion Ex-smoker (finding) July 7:16am Observation Status Observation Response Date of Response Legal Sex Male (finding) Sex Assigned At Male July Family History Relationship Condition Age at Onset Recorded Date/T dunia brother Unknown father Diabetes mellitus Unknown Unknown Heart disease Unknown mother Unknown Heart disease Unknown Problems Active Problems Medical Problem Onset Date Status Comments 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 Un known Active Diabetes Unknown Active type 2 Chronic pain Unknown Active Chronic renal disease, stage III Unknown Active AAA (abdominal aortic aneurysm) Unknown Active Dermatitis Unknown Active Hyperlipidemia Unknown Active Hypothyroidism Unknown Active Trochanteric bursitis Unknown Active 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 Unknown Active Pancytopenia Unknown Active Chest pain Unknown Active Hypertension Unknown Active Asthma Unknown Active Inactive/Resolved Problems Medical Problem Onset Date Status Comments Acute dehydration Unknown Resolved Pneumonia due to COVID-19 virus Unknown Resolved COVID-19 Unknown Resolved Acute encephalopathy Unknown Resolved Shingles rash Unknown Resolved Crescendo angina Unknown Resolved chest pain Acute pain of left shoulder Unknown Resolved Abnormal cardiovascular stress test Unknown Resol jovanny Essential (primary) hypertension Unknown Resolved Former smoker Unknown Resolved Chest wall contusion Unknown Resolved Acute confusion Unknown Resolved Acute electrocardiogram changes Unknown Resolved 3-vessel coronary artery disease Unknown Resolved Bee sting Unknown Resolved Aortic ectasia, thoracic Unknown Resolved Medications Medication Status Dose Units Route Directions Qty Days St art Date Stop Date End Date Instructions Adherence Atorvastati n 40 mg tablet Discont inued 0 .ROUTE .COMPLEX 90 Octobe r 2023 11:08a m Decem myriam 2023 10:48 am TAKE 1 TABLET BY MOUTH AT BEDTIME Isosorbide Mononitrate 30 mg tablet extended release 24 hr Discont inued 60 MG PO Daily Dece er 2023 12:05p m 2024 9:08a m Isosorbide Mononitrate 30 mg tablet extended release 24 hr Discont inued 0 .ROUTE .COMPLEX 2024 9:07am 2024 12:38 pm TAKE 2 TABLETS BY MOUTH DAILY Isosorbide Mononitrate 60 mg tablet extended release 24 hr Discont inued 60 MG PO Daily 2024 1:00am July 19, 2024 9:51a m Ranolazine 500 mg tablet extended release 12 hr Active 500 MG PO Twice daily 2024 1:00am Complies with drug therapy Isosorbide Mononitrate 60 mg tablet extended release 24 hr Active 60 MG PO Daily July 26, 2024 9:44am Complies with drug therapy Atorvastati n 40 mg tablet Active 0 .ROUTE .COMPLEX August 27, 2024 11:13a m TAKE 1 TABLET BY MOUTH AT BEDTIME Complies with drug therapy Naproxen Sodium (Aleve) 220 mg Tablet Discont inued 1 TAB PO Daily as needed for Pain [facility] er 2016 1:00am [facility] er 2019 11:45 am Aspirin 81 mg Tablet,Osiris yed Release (Dr/Ec) Active 1 TAB PO Every morning [facility] er 2016 1:00am Complies with drug therapy Carvedilol 3.125 mg Tablet Discont inued 1 TAB PO Twice daily [facility] er 2016 1:00am October 06, 2023 11:30 am Clopidogrel 75 mg Tablet Discont inued 1 TAB PO [facility] 2016 1:00am Dece myriam 2019 1:14p m Glipizide 5 mg Tablet Extended Release 24 Hr Discont inued 5 MG PO Twice daily [facility] er 2016 1:00am [facility] myriam 2019 1:14p m Isosorbide Mononitrate 30 mg Tablet Extended Release 24 Hr Discont inued 30 MG PO Every morning [facility] er 2016 1:00am September 19, 2023 2:33p m Metformin (Glucophage ) 1,000 mg Tablet Discont inued 1000 MG PO Twice daily Novemb er 2016 1:00am Febru julio cesar2023 10:59 am Nitroglycer in (Nitrostat) 0.4 mg Tablet, Sublingual Discont inued 0.4 MG SUBLIN GUAL every 5 to 15 minutes as needed for Chest Pain Novemb er 2016 1:00am October 06, 2023 11:42 am Lisinopril 2.5 mg Tablet Discont inued 2.5 MG PO Daily Novemb er 2016 1:00am Dece myriam 2019 1:14p m Potassium Gluconate 550 mg (90 mg) Tablet Discont inued 1 TAB PO Daily as needed for Hypokalemia Novemb er 2016 1:00am September 19, 2023 2:33p m Simvastatin 40 mg Tablet Discont inued 40 MG PO Every evening Novemb er 2016 1:00am Dece myriam 2019 6:34p m Montelukast (Singulair) 10 mg Tablet Discont inued 10 MG PO Every evening Novemb er 2016 1:00am Augus t 2023 8:59a m Oxycodone 5 mg tablet Discont inued 5 MG PO Q6H as needed for pain 10 Novemb er 2016 1:00am Octob er 2019 11:45 am Metformin (Glucophage ) 1,000 mg tablet Discont inued 500 MG PO Twice daily 2023 10:57a m u 2023 10:43 am Metformin (Glucophage ) 1,000 mg tablet Discont inued 500 MG PO Every morning 2023 10:40a m October 04, 2023 9:23a m Clotrimazol e 1 % cream Discont inued 1 APPLIC TOPICA L Twice daily 2022 1:00am Febru julio cesar2023 10:39 am Magnesium Chloride (Slow-Mag) 71.5 mg tablet,osiris yed release (DR/EC) Active 71.5 MG PO Daily 2023 12:00a m Complies with drug therapy Atorvastati n 20 mg tablet Discont inued 20 MG PO Daily at bedtime Octobe r 2019 12:00a m October 06, 2023 11:41 am Hydrocodone -Acetaminop hen ([place]) 5-325 mg tablet Discont inued 1 TAB PO Q6H as needed for pain 12 3 Octobe r 2019 Dece myriam 2019 6:34p m Ascorbic Acid (Vitamin C) (Vitamin C) 500 mg Tablet Discont inued 500 MG PO Twice daily 60 Dece er 2019 1:00am Febru julio cesar 2023 10:39 am Zinc Sulfate (Orazinc) 220 (50) mg Capsule Discont inued 220 MG PO Daily 30 Dece er 2019 1:00am Febru julio cesar 2023 10:41 am Apixaban (Eliquis) 5 mg Tablet Discont inued 5 MG PO Twice daily 120 90 [facility] er 2019 1:00am Febru [facility] 2023 10:38 am Glipizide 5 mg Tablet Extended Release 24 Hr Discont inued 5 MG PO Daily 0 Dece er 2019 1:13pm July 29, 2023 10:56 am Vit C,E-Zn-Iggy r-Lutein-Ze axan (Preservisi on Areds-2) 250-90-40-1 mg capsule Active 1 TAB PO Every morning July 29, 2023 12:00a m Complies with drug therapy Glipizide 5 mg Tablet Extended Release 24 Hr Discont inued 5 MG PO Every evening July 29, 2023 12:00a m Augus t 2023 2:53p m Isosorbide Mononitrate 60 mg Tablet Extended Release 24 Hr Discont inued 60 MG PO Every morning September 19, 2023 12:00a m October 06, 2023 11:42 am Diclofenac Sodium (Voltaren Arthritis Pain) 1 % gel Discont inued 4 GM TOPICA L Four times daily as needed for pain 100 30 August 31, 2023 12:00a m September 17, 2023 6:35p m apply to the right hip up to four times daily as needed Metformin 500 mg tablet Discont inued 500 MG PO Twice daily October 04, 2023 12:00a m October 04, 2023 9:57a m Metformin 500 mg tablet Discont inued 500 MG PO Twice daily 180 October 04, 2023 9:57am Augus 2023 8:47a m Atorvastati n 20 mg tablet Discont inued 20 MG PO Daily January 03, 2024 12:00a m Augus t 2023 9:25a m Isosorbide Mononitrate 30 mg tablet extended release 24 hr Discont inued 30 MG PO Daily January 03, 2024 12:00a m Augus 2023 9:25a m Lisinopril 2.5 mg tablet Discont inued 2.5 MG PO Daily January 03, 2024 12:00a m July 19, 2024 9:51a m Metformin 500 mg tablet Active 500 MG PO Daily January 03, 2024 8:44am Complies with drug therapy Potassium Gluconate 595 mg (99 mg) tablet Discont inued 595 MG PO Daily January 03, 2024 12:00a m [facility] 2023 6:12p m Montelukast (Singulair) 10 mg tablet Active 10 MG PO Every evening January 03, 2024 8:58am Complies with drug therapy Isosorbide Mononitrate 30 mg tablet extended release 24 hr Discont inued 60 MG PO Daily January 03, 2024 9:24am Decem myriam 2023 12:06 pm Atorvastati n 20 mg tablet Discont inued 40 MG PO Daily January 03, 2024 9:25am Octob er 2023 11:08 am Clotrimazol e-Betametha sone 1-0.05 % cream Discont inued 1 APPLIC TOPICA L Twice daily 45 January 03, 2024 12:00a m [facility] 2023 6:05p m Lisinopril 5 mg tablet Active 5 MG PO Daily July 19, 2024 1:00am Complies with drug therapy Isosorbide Mononitrate 30 mg tablet extended release 24 hr Discont inued 30 MG PO Once July 19, 2024 1:00am July 23, 2024 11:05 am Isosorbide Mononitrate 60 mg tablet extended release 24 hr Discont inued 60 MG PO Daily July 23, 2024 12:00a m July 26, 2024 9:45a m Levothyroxi ne 50 mcg capsule Active 50 MCG PO Every morning 2023 1:00am Complies with drug therapy Lisinopril 5 mg tablet Discont inued 5 MG PO Every evening 2023 1:00am Augus 2023 8:44a m Multivitami n tablet Active 1 TAB PO Daily 2023 1:00am Complies with drug therapy Carvedilol 3.125 mg tablet Active 3.125 MG PO Twice daily October 06, 2023 11:28a m Complies with drug therapy Isosorbide Mononitrate 60 mg tablet extended release 24 hr Discont inued 60 MG PO Every morning October 06, 2023 11:40a m Augus t 2023 8:43a m Nitroglycer in (Nitrostat) 0.4 mg tablet, sublingual Active 0.4 MG SUBLIN GUAL every 5 to 15 minutes as needed for Chest Pain October 06, 2023 11:40a m Complies with drug therapy Atorvastati n 40 mg tablet Discont inued 40 MG PO Daily at bedtime October 06, 2023 12:00a m Augus t 2023 8:42a m Glipizide 5 mg tablet extended release 24hr Active 5 MG PO Every evening December 26, 2023 2:53pm Complies with drug therapy Blood Sugar Diagnostic (True Metrix Glucose Test Strip) strip Active STRIP .ROUTE .MEDSUPPLY 10 [facility] er 2023 1:00am As directed Atorvastati n 40 mg tablet Discont inued 40 MG PO Daily [facility] er 2023 10:48a m August 27, 2024 11:14 am Immunizations Immunization Event Date Not Given Reason Dose Number [employer] Lot Number Vaccine Information Statement (VIS) Detail Administration Location COVID-19 mRNA, Comirnaty ([employer]) August 20, 2020 COVID-19 mRNA, Comirnaty ([employer]) September 11, 2020 COVID-19 mRNA, Comirnaty ([employer]) March 31, 2021 COVID-19 Comirnaty ([employer]) Tri-Sucrose + May 07, 2024 COVID-19 ([employer]) 12Y and older September 28, 2023 COVID-19 ([employer]) 12Y and older May 07, 2024 Fluzone TIV High-Dose 65YR+ February 14, 2019 Fluzone TIV High-Dose 65YR+ February 24, 2021 Fluzone TIV High-Dose 65YR+ March 02, 2024 Fluzone QIV High-Dose 65YR+ February 12, 2020 Fluzone QIV High-Dose 65YR+ March 01, 2022 Fluzone QIV High-Dose 65YR+ February 15, 2023 Flu Vaccine - High Dose (>65 y/o) April 14, [id number] [facility] influenza, unspecified formulation February 12, 2020 influenza, unspecified formulation February 24, 2021 Pneumococcal Polysacc. Vaccine, 23 valent February 12, 2020 Pneumococcal Polysacc. Vaccine, 23 valent March 04, 2016 Patient Refused Tetanus, Diphtheria, Pertussis (Tdap) February 12, 2020 Trivalent Influenza Vaccine May 02, 2017 Trivalent Influenza Vaccine March 10, 2018 Trivalent Influenza Vaccine March 04, 2016 Patient Refused Shingles (Zoster) December 15, 2016 Medical Equipment Device Date Implanted Device Details ENDOLOGIX PROX ENDOGRAF [id number] April 13 ENDOLOGIX PROX ENDOGRAF [id number] April 13 7 Relevant Diagnostic Tests and/or Laboratory Data Laboratory Results Test Collection Date/Time Result Date/Time Result Interpretation Reference Range Result Comment Performing Site Corrected White Blood Count October 15, 2024 7:52am October 15, 2024 2:17pm 7.2 10*3/uL 4.1-10.5 [facility] [id number] [address] [facility] [address] Uncorrect ed WBC Count October 15, 2024 7:52am October 15, 2024 2:17pm 7.2 10*3/uL 4.1-10.5 [facility] [id number] [address] [facility] [address] Red Blood Count October 15, 2024 7:52am October 15, 2024 2:17pm 3.82 10*6/uL Below low normal 3.90-5.60 [facility] [id number] [address] [facility] [address] Hemoglobi n October 15, 2024 7:52am October 15, 2024 2:17pm 12.7 g/dL Below low normal 13.0-17.[address] [facility] [id number] [address] [facility] [address] Hematocri t October 15, 2024 7:52am October 15, 2024 2:17pm 37.0 % Below low normal 38.8-50.[address] [facility] [id number] [address] [facility] [address] Mean Corpuscul ar Volume October 15, 2024 7:52am October 15, 2024 2:17pm 96.9 fL 83.5-[address] [facility] [id number] [address] [facility] [address] Mean Corpuscul ar Hemoglobi n October 15, 2024 7:52am October 15, 2024 2:17pm 33.2 pg 27.5-35.[address] [facility] [id number] [address] [facility] [address] Mean Corpuscul ar Hemoglobi n Concent October 15, 2024 7:52am October 15, 2024 2:17pm 34.2 g/dL 32.5-35.[address] [facility] [id number] [address] [facility] [address] Red Cell Distribut ion Width October 15, 2024 7:52am October 15, 2024 2:17pm 13.6 % 12.0-14.[address] [facility] [id number] [address] [facility] [address] Platelet Count October 15, 2024 7:52am October 15, 2024 2:17pm 169 10*3/uL 150-[address] [facility] [id number] [address] [facility] [address] Mean Platelet Volume October 15, 2024 7:52am October 15, 2024 2:17pm 9.2 fL 6.6-10.[address] [facility] [id number] [address] [facility] [address] Neutrophi ls (%) (Auto) October 15, 2024 7:52am October 15, 2024 2:17pm 74.6 % . [facility] [id number] [address] [facility] [address] Lymphocyt es (%) (Auto) October 15, 2024 7:52am October 15, 2024 2:17pm 15.5 % . [facility] [id number] [address] [facility] [address] Monocytes (%) (Auto) October 15, 2024 7:52am October 15, 2024 2:17pm 7.6 % . [facility] [id number] [address] [facility] [address] Eosinophi ls (%) (Auto) October 15, 2024 7:52am October 15, 2024 2:17pm 1.4 % . [facility] [id number] [address] [facility] [address] Basophils (%) (Auto) October 15, 2024 7:52am October 15, 2024 2:17pm 0.9 % . [facility] [id number] [address] [place] [address] Nucleated RBC Relative Count (auto) October 15, 2024 7:52am October 15, 2024 2:17pm 0.1 /100{WB C} 0-0.[address] [facility] [id number] [address] [facility] [address] Neutrophi ls # (Auto) October 15, 2024 7:52am October 15, 2024 2:17pm 5.4 10*3/uL 1.8-7.[address] [facility] [id number] [address] [place] [address] Lymphocyt es # (Auto) October 15, 2024 7:52am October 15, 2024 2:17pm 1.1 10*3/uL 1.00-4.[address] [facility] [id number] [address] [place] [address] Monocytes # (Auto) October 15, 2024 7:52am October 15, 2024 2:17pm 0.6 10*3/uL 0.0-0.[address] [facility] [id number] [address] [facility] [address] Eosinophi ls # (Auto) October 15, 2024 7:52am October 15, 2024 2:17pm 0.1 10*3/uL 0.0-0.[address] [facility] [id number] [address] [place] [address] Basophils # (Auto) October 15, 2024 7:52am October 15, 2024 2:17pm 0.1 10*3/uL 0.0-0.[address] [facility] [id number] [address] [facility] [address] Glucose Level October 15, 2024 7:52am October 15, 2024 2:40pm 104 mg/dL Above high normal 70-100 ADA recommended reference rangeRandom Glucose Reference Range is dependent on time and content of last meal. Glucose of more than 200 mg/dL in a nonstressed, ambulatory subject supports the diagnosis of Diabetes Mellitus. [facility] [id number] [address] [facility] [address] Blood Urea Nitrogen October 15, 2024 7:52am October 15, 2024 2:40pm 25 mg/dL 7-[address] [facility] [id number] [address] [facility] [address] Creatinin e October 15, 2024 7:52am October 15, 2024 2:40pm 1.52 mg/dL Above high normal 0.70-1.[address] [facility] [id number] [address] [facility] [address] Estimated GFR (CKD-EPI) October 15, 2024 7:52am October 15, 2024 2:40pm 43.801 mL/Min [facility] [id number] [address] [facility] [address] Sodium Level October 15, 2024 7:52am October 15, 2024 2:40pm 141 mmol/L 136-[address] [facility] [id number] [address] [facility] [address] Potassium Level October 15, 2024 7:52am October 15, 2024 2:40pm 4.6 mmol/L 3.5-5.[address] [facility] [id number] [address] [facility] [address] Chloride Level October 15, 2024 7:52am October 15, 2024 2:40pm 109 mmol/L Above high normal 98-[address] [facility] [id number] [address] [facility] [address] Carbon Dioxide Level October 15, 2024 7:52am October 15, 2024 2:40pm 27.1 mmol/L 21.0-31.[address] [facility] [id number] [address] [place] [id number] Anion Gap October 15, 2024 7:52am October 15, 2024 2:40pm 9.5 mEq/L 6.0-15.[address] [facility] [id number] [address] [facility] [address] Calcium Level October 15, 2024 7:52am October 15, 2024 2:40pm 9.2 mg/dL 8.6-10.[address] [facility] [id number] [address] [place] [address] Total Protein October 15, 2024 7:52am October 15, 2024 2:40pm 5.9 g/dL Below low normal 6.4-8.[address] [facility] [id number] [address] [facility] [address] Albumin October 15, 2024 7:52am October 15, 2024 2:40pm 3.8 g/dL 3.5-5.[address] [facility] [id number] [address] [place] [address] Globulin October 15, 2024 7:52am October 15, 2024 2:40pm 2.1 g/dL [facility] [id number] [address] [place], [place] [address] Albumin/G lobulin Ratio October 15, 2024 7:52am October 15, 2024 2:40pm 1.[address] [facility] [id number] [address] [place] [address] Total Bilirubin October 15, 2024 7:52am October 15, 2024 2:40pm 0.7 mg/dL 0.3-1.[address] [facility] [id number] [address] [place] [address] Aspartate Amino Transf (AST/SGOT ) October 15, 2024 7:52am October 15, 2024 2:40pm 16 U/L 13-[address] [facility] [id number] [address] [place] [address] Alanine Aminotran sferase (ALT/SGPT ) October 15, 2024 7:52am October 15, 2024 2:40pm 14 U/L 7-[address] [facility] [id number] [address] [place] [address] Alkaline Phosphata se October 15, 2024 7:52am October 15, 2024 2:40pm 104 U/L 34-[address] [facility] [id number] [address] [place] [address] Pharmacy Creatinin e Clearance (Chem October 15, 2024 7:52am October 15, 2024 2:40pm N/A [facility] [id number] [address] [place] [address] Hemoglobi n A1c October 15, 2024 7:52am October 16, 2024 8:40am 6.8 % Above high normal 4.3-5.6 Increased risk for diabetes: 5.7 - 6.4diabetes: >6.4glycemic control for adults with diabetes: <7.[address] [facility] [id number] [address] [place] [address] Estimated Average Glucose October 15, 2024 7:52am October 16, 2024 8:40am 148 mg/dL [facility] [id number] [address] [place] [address] Vital Signs Vital Reading Result Reference Range Collection Date/Time Height 69 [in_i] October 01, 2024 10:24am Weight 76.65 kg October 01, 2024 10:24am Heart Rate 55 /min 60-100 October 01, 2024 10:24am Respiratory rate 18 /min 12-24 October 01, 2 025 10:24am Oxygen saturation by Pulse oximetry 97 % 95-10 0 October 01, 2024 10:24am BP Systolic 128 mm[Hg] 100-140 October 01, 2024 10:24am BP Diastolic 72 mm[Hg] 60-100 October 01, 2024 10:24am BMI (Body Mass Index) 24.9 kg/m2 October 012024 10:24am Height 69 [in_i] November 15, 2024 9:38am Weight 76.20 kg November 15, 2024 9:38am Heart Rate 60 /min 60-100 November 15, 2024 9:38am Oxygen saturation by Pulse oximetry 96 % 95-10 0 November 15, 2024 9:38am BP Systolic 120 mm[Hg] 100-140 November 15, 2024 9:38am BP Diastolic 70 mm[Hg] 60-100 November 15, 2024 9:38am BMI (Body Mass Index) 24.7 kg/m2 November 152024 9:38am Advance Directives Advance Directive Response Recorded Date/ Time Advance Directives No February 14, 2017 4:22pm Insurance Providers Guarantor Ever Klein Address [address] [place] [address] Contact Info. Home Phone: Payer Policy Id Subscriber's Name Subscriber Id Effectiv e Date Expiration Date Medicare [id number] Ever Klein [id number] [facility] [id number] Ever Klein [id number] Encounters Encounter Location(s) Arrival/Admit Date Discharge/Depart Date Provider(s) Departed Physician/Prov ider Office Visit -[facility], [facility] Cardiology October 01, 2024 10:06am October 01, 2024 11:03am Hossein Martin MD Departed Clinical -Lab [place] October 15, 2024 7:51am October 15, 2024 7:52am Blake Kothari DO Departed Physician/Prov ider Office Visit -[facility] Medicine [place] November 15, 2024 8:38am November 15, 2024 9:59am Blake Kothari DO Recent Diagnosis Onset Date Admit Date Coronary artery disease with angina pectoris Unk nown October 01, 2024 10:06am Essential (primary) hypertension Unknown October 01, 2024 10:06am Diabetes Unknown November 15, 2024 8 :38am Assessments Diagnosis Onset Date Resolution Status Admit Date Coronary artery disease with angina pectoris acute October 01, 2024 1 0:06am Essential (primary) hypertension resolved October 01, 2024 1 0:06am Diabetes acute November 15, 2024 8:38am Plan of Treatment Author Hossein [facility] Authored October 01, 2024 7:28p m # Multivessel CAD with untreated 3-vessel disease and prior h/o multiple stents and [place] (first in 2007 in [place] x 2 stents and again in [place] 08/09/13 x 2 stents) - Has no angina on Imdur. He was seen by CT Surgeons at (Dr. Holley in 08/2023) who declined CABG due to old age and little angina, however they can reconsider if angina develops. He was seen by Dr. Pilo Cagle at [facility] who recommended continued medical management. # HTN - Well controlled. # HLD - LDL is at goal # Abdominal aortic aneurysm (s/p repair in 2011) with subsequent Type III endoleak repair (Residual sac >8cm diameter and follows with Dr. Grissom) # Other: Type 2 DM, Gallstones, Raynauds phenomenon. Former smoker. Echo 12/19/21 - Moderate LVH, EF 60-65%, mild AR. EKG 07/12/23 in clinic - Sinus mariah, 53bpm, LVH. Echo 09/18/2023 EF 55-60%, mild LVH, normal LV wall motion, mild AR, mild MR. Lexiscan SPECT MPI 07/25/2023 - Probable small area of inferior wall ischemia. No prior TN. Normal left ventricular systolic function and wall motion. [facility] 08/02/23 - Severe three-vessel ASHD. New 85-90% disease proximal circumflex and restenotic mid LAD disease. Chronic 90% disease in the first diagonal branch and the first and second OM branches circumflex. 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 Normal left ventricular function. Consideration for second opinion from CT surgery; if declined for surgical revascularization, can consider PCI's proximal circumflex and mid LAD. Lipid panel from the [place] [facility] 09/17/2024 cholesterol 124, LDL 65, HDL 48, triglycerides 84. -Patient does not want further follow-up with [facility], or further evaluations for PCI. -He has no chest pain. He remains active. Therefore we will continue medical management. -CAD and HLD regimen: cont medical therapy with ASA, Lipitor 40mg, Coreg, Imdur 60mg, Lisinopril, Ranexa and NTG prn. He does not need refills at this time. -Cont HTN regimen with medications above. -F/u 1 year with labs. Future Tests Future scheduled test information is unavailable Pending Tests Test Name Ordered Date Scheduled Date Comprehensive Metabolic Panel November 15, 2024 9:5 5am 3 Months Comprehensive Metabolic Panel October 01, 2024 11: 05am 1 Years Future Visits Future appointment information is unavailable Referrals to Other Providers Referral information is unavailable Future Procedures Procedure Name Ordered Date Scheduled Date A1C with Estimated Average Glu November 15, 2024 9: 55am 3 Months Complete Blood Count Auto Diff November 15, 2024 9: 55am 3 Months Lipid Panel November 15, 2024 9:55am 3 Months MicroAlb Creat Ratio,U November 15, 2024 9:55am 3 M onths Thyroid Stimulating Hormone November 15, 2024 9:55a m 3 Months AMB POC Hgb A1C November 15, 2024 9:21am Complete Blood Count Auto Diff October 01, 2024 11 :05am 1 Years Lipid Panel October 01, 2024 11:05am 1 Years Future Medications Future medication information is unavailable Patient Instructions Patient instructions are unavailable
--- OUTSIDE RECORDS SUMMARY | 2024-11-29 12:57 | XMS_ITS | Encounter Summary ---
Author Organization [facility] Address [address] [place] [address] Phone Care Team Providers Care Senior Quality Control Inspector Name Role Phone Blake Kothari DO Primary Care Provider [phone] Blake Kothari DO Primary Care Provider [phone] Blake Kothari DO Primary Care Provider [phone] Encounter Details Date Type Department Care Team (Late st Contact Info) Description 05/19/2022 Orders Only [facility] [address] [place] [place] [address] Conversion, Onbase Social History Tobacco Use Types Packs/Day Years Used Date Smoking Tobacco: Never Assessed Sex and Gender Information Value Date Recorded Sex Assigned at Not on file Legal Sex Male 1:16 PM EST Gender Identity Not on file Sexual Orientation Not on file documented as of this encounter Plan of Treatment Upcoming Encounters Date Type Department Care Team (Late st Contact Info) Description 07/24/2025 10:10 AM EDT Office Visit [facility] [address] [facility] [address] [place] [address] Renny Christopher DO [address] [place] [address] Scheduled Orders Name Type Priority Associated Diagnoses Orde r Schedule OUTSIDE LAB SCAN Lab Ordered: 05/19/2022 documented as of this encounter Visit Diagnoses Not on filedocumented in this encounter Care Teams Senior Quality Control Inspector Relationship Specialty Start Date End Date Blake Kothari DO PCP - General 10/05/18 08/22/23 Blake Kothari DO PCP - General Family Medicine 08/23/23 10/29/24 Blake Kothari DO [address] [facility] [address] [place] [address] PCP - General Family Medicine 10/30/24 documented as of this encounter
--- OUTSIDE RECORDS SUMMARY | 2024-11-29 12:57 | XMS_ITS | Encounter Summary ---
Author Organization [facility] Address [address] [place] [address] Care Team Providers Care Print Finishing Worker Name Role Phone Hossein Martin MD Unavailable + [phone] Blake Kothari Primary Care Provider [phone] Source Comments In the event this information is protected by the Federal Confidentiality of Alcohol and Drug AbusePatient Records regulations: The Federal rules restrict any use of the information to criminally investigate or prosecute any alcohol or drug abuse patient.[facility] Encounter Details Date Type Department Care Team (Late st Contact Info) Description 09/06/2024 Patient Msg Cardiology [address] [place] [address] Pilo Cagle MD [address] [place] [address] Appointment Cancellation Request Social History Tobacco Use Types Packs/Day Years Used Date Smoking Tobacco: Former Cigarettes Smokeless Tobacco: Never Comments:Quit smoking in [birth year] 8. Smoked 22 years. Alcohol Use Standard Drinks/Week Comments Not Currently 0 (1 standard drink = 0.6 oz pur e alcohol) Area Deprivation Index Answer Date Justyn rded National Score (1-100), lower number is lower ri sk 74 06/11/2024 State Score (1-10), lower number is lower risk 6 06/11/2024 Data from: https://www.neighborhoodatlas.medicine.[facility].edu/. Last address used for calculation [address] 06/11/2024 Sex and Gender Information Value Date Recorded Sex Assigned at Not on file Legal Sex Male 11:25 AM EDT Gender Identity Not on file Sexual Orientation Not on file documented as of this encounter Plan of Treatment Not on file documented as of this encounter Goals Goal Patient Goal Type Associated Problems Recent Progress Patient-Stated? Author Blood Pressure < 130/80 Blood Pressure 169/64( 025 1:52 PM EST) No Dylan Morrell MD documented as of this encounter Visit Diagnoses Not on filedocumented in this encounter Care Teams Print Finishing Worker Relationship Specialty Start Date End Date Blake Kothari [address] [place] [address] PCP - General Family Medicine 06/11/24 Hossein Martin MD [address] [place] [phone] Referring Cardiovascular Surgery 01/24/24 documented as of this encounter
--- OUTSIDE RECORDS SUMMARY | 2024-11-29 12:57 | XMS_ITS | Encounter Summary ---
Author Organization [facility] Address [address] [place] [address] Phone Care Team Providers Care Orthopedic Podiatrist Name Role Phone Blake Kothari DO Primary Care Provider [phone] Blake Kothari DO Primary Care Provider [phone] Encounter Details Date Type Department Care Team (Late st Contact Info) Description 08/07/2024 Scanned Document [facility] [address] [place] [phone] Scanning, Generic Provider Social History Tobacco Use Types Packs/Day Years [...] Description 07/24/2025 10:10 AM EDT Office Visit [facility] [address] [facility] [address] [place] [address] Renny Christopher DO [address] [facility] [address] [place] [address] Scheduled Orders Name Type Priority Associated Diagnoses Orde r Schedule Ultrasound- OnBase Scan Imaging O rdered: 08/07/2024 documented as of this encounter Visit Diagnoses Not on filedocumented in this encounter Additional Health Concerns Assessment Noted Time A fall risk assessment has been complete d for the patient 03/15/2024 9:28 AM EDT documented as of this encounter Care Teams Orthopedic Podiatrist Relationship Specialty Start Date End Date Blake oKthari DO PCP - General Family Medicine 08/23/23 10/29/24 Blake Kothari DO [facility] [address] [place] [address] PCP - General Family Medicine 10/30/24 documented as of this encounter
--- OUTSIDE RECORDS SUMMARY | 2024-11-29 12:57 | XMS_ITS | Encounter Summary ---
Author Organization [facility] Address [address] [place] [address] Phone Care Team Providers Care Teacher Home Therapy Name Role Phone Blake Kothari DO Primary Care Provider [phone] Blake Kothari DO Primary Care Provider [phone] Encounter Details Date Type Department Care Team (Late st Contact Info) Description 10/15/2024 Scanned Document [facility] [address] [place] [phone] Scanning, Generic Provider Social History Tobacco Use [...] Description 07/24/2025 10:10 AM EDT Office Visit [facility] [address] [facility] [address] [place] [address] Renny Christopher DO [address] [facility] [address], [address] [place] [address] documented as of this encounter Visit Diagnoses Not on filedocumented in this encounter Additional Health Concerns Assessment Noted Time A fall risk assessment has been complete d for the patient 03/15/2024 9:28 AM EDT documented as of this encounter Care Teams Teacher Home Therapy Relationship Specialty Start Date End Date Blake Kothari DO PCP - General Family Medicine 08/23/23 10/29/24 Blake Kothari DO [address] [facility] [address] [place] [address] PCP - General Family Medicine 10/30/24 documented as of this encounter
--- OUTSIDE RECORDS SUMMARY | 2024-11-29 12:57 | XMS_ITS | Encounter Summary ---
Author Organization [facility] Address [address] [place] [address] Phone Care Team Providers Care Airborne Operations Name Role Phone Blake Kothari DO Primary Care Provider [phone] Blake Kothari DO Primary Care Provider [phone] Blake Kothari DO Primary Care Provider [phone] Encounter Details Date Type Department Care Team (Late st Contact Info) Description 09/21/2022 Orders Only [facility] [address] [place] [address] Conversion, Onbase Social History Tobacco Use Types [...] Description 07/24/2025 10:10 AM EDT Office Visit [facility] [address] [facility] [address] [place] [address] Renny Christopher DO [address] [place] [address] Scheduled Orders Name Type Priority Associated Diagnoses Orde r Schedule OUTSIDE LAB SCAN Lab Ordered: 09/21/2022 documented as of this encounter Visit Diagnoses Not on filedocumented in this encounter Care Teams Airborne Operations Relationship Specialty Start Date End Date Blake Kothari DO PCP - General 10/05/18 08/22/23 Blake Kothari DO PCP - General Family Medicine 08/23/23 10/29/24 Blake Kothari DO [address] [facility] [address] [place] [address] PCP - General Family Medicine 10/30/24 documented as of this encounter
--- OUTSIDE RECORDS SUMMARY | 2024-11-29 12:57 | XMS_ITS | Encounter Summary ---
Author Organization [facility] Address [address] [place] [address] Phone Care Team Providers Care Toolroom Checker Name Role Phone Blake Kothari DO Primary Care Provider [phone] Blake Kothari DO Primary Care Provider [phone] Blake Kothari DO Primary Care Provider [phone] Encounter Details Date Type Department Care Team (Late st Contact Info) Description 03/21/[address] [facility] [address] [place] [address] Conversion, Onbase Social History Tobacco Use Types [...] Description 07/24/2025 10:10 AM EDT Office Visit [facility] [address] [facility] [address] [place] [address] Renny Christopher DO [address] [place] [address] Scheduled Orders Name Type Priority Associated Diagnoses Orde r Schedule OUTSIDE LAB SCAN Lab Ordered: 03/21/2019 documented as of this encounter Visit Diagnoses Not on filedocumented in this encounter Care Teams Toolroom Checker Relationship Specialty Start Date End Date Blake Kothari DO PCP - General 10/05/18 08/22/23 Blake Kothari DO PCP - General Family Medicine 08/23/23 10/29/24 Blake Kothari DO [facility] [address] [place] [address] PCP - General Family Medicine 10/30/24 documented as of this encounter
--- OUTSIDE RECORDS SUMMARY | 2024-11-29 12:57 | XMS_ITS | Encounter Summary ---
Author Organization [facility] Address [address] [place] [address] Phone Care Team Providers Care Health Sciences Dean Name Role Phone Blake Kothari DO Primary Care Provider [phone] Blake Kothari DO Primary Care Provider [phone] Blake Kothari DO Primary Care Provider [phone] Encounter Details Date Type Department Care Team (Late st Contact Info) Description 01/10/2023 Scanned Document [facility] [address] [place] [address] Conversion, Onbase Social History Tobacco Use Types [...] Description 07/24/2025 10:10 AM EDT Office Visit [facility] [address] [place] [address] Renny Christopher DO [address] [place], [place] [address] documented as of this encounter Procedures Procedure Name Priority Date/Time Associated Diagnosis Comments OUTSIDE IMAGING SCAN 01/10/2023 documented in this encounter Results * OUTSIDE IMAGING SCAN (01/10/2023) Anatomical Region Laterality Modality Other Narrative 01/10/2023 Ordered by an unspecified provider. us Onbase Conversion OUTSIDE SCAN Final Result documented in this encounter Visit Diagnoses Not on filedocumented in this encounter Care Teams Health Sciences Dean Relationship Specialty Start Date End Date Blake Kothari DO PCP - General 10/05/18 08/22/23 Blake Kothari DO PCP - General Family Medicine 08/23/23 10/29/24 Blake Kothari DO [address] [facility] [address] [place] [address] PCP - General Family Medicine 10/30/24 documented as of this encounter
--- OUTSIDE RECORDS SUMMARY | 2024-11-29 12:57 | XMS_ITS | Encounter Summary ---
Author Organization [facility] Address [address] [place] [address] Phone Care Team Providers Care Adjunct Trainer Name Role Phone Blake Kothari DO Primary Care Provider [phone] Blake Kothari DO Primary Care Provider [phone] Encounter Details Date Type Department Care Team (Late st Contact Info) Description 01/18/2024 Scanned Document [facility] [address] [place] [phone] Scanning, Generic Provider Social History Tobacco Use [...] Description 07/24/2025 10:10 AM EDT Office Visit [facility] [address] [facility] [address] [place] [address] Renny Christopher DO [address] [facility] [address] [place] [address] documented as of this encounter Visit Diagnoses Not on filedocumented in this encounter Additional Health Concerns Assessment Noted Time A fall risk assessment has been complete d for the patient 09/13/2023 12:48 PM EDT documented as of this encounter Care Teams Adjunct Trainer Relationship Specialty Start Date End Date Blake Kothari DO PCP - General Family Medicine 08/23/23 10/29/24 Blake Kothari DO [address] [facility] [address] [place] [address] PCP - General Family Medicine 10/30/24 documented as of this encounter
--- OUTSIDE RECORDS SUMMARY | 2024-11-29 12:57 | XMS_ITS | Encounter Summary ---
Author Organization [facility] Address [address] [place] [address] Phone Care Team Providers Care Oil Winterizer Name Role Phone Blake Kothari DO Primary Care Provider [phone] Blake Kothari DO Primary Care Provider [phone] Encounter Details Date Type Department Care Team (Late st Contact Info) Description 09/19/2023 Scanned Document [facility] [address] [place] [place] [address] Scanning, Generic Provider Social History Tobacco Use [...] on file Sexual Orientation Not on file COVID-19 Exposure Response Date Recorded In the last 10 days, have yo u been in contact with someone who was confirmed or suspected to have Coronavirus/COVID-19? No / Unsure 09/13/2023 12:35 PM EDT documented as of this encounter Plan of Treatment Upcoming Encounters Date Type Department Care Team (Late st Contact Info) Description 07/24/2025 10:10 AM EDT Office Visit [facility] [address] [facility] [address] [place] [address] Renny Christopher DO [address] [facility] [address] [place] [address] documented as of this encounter Visit Diagnoses Not on filedocumented in this encounter Additional Health Concerns Assessment Noted Time A fall risk assessment has been complete d for the patient 09/13/2023 12:48 PM EDT documented as of this encounter Care Teams Oil Winterizer Relationship Specialty Start Date End Date Blake Kothari DO PCP - General Family Medicine 08/23/23 10/29/24 Blake Kothari DO [address] [facility] [address] [place] [address] PCP - General Family Medicine 10/30/24 documented as of this encounter
--- OUTSIDE RECORDS SUMMARY | 2024-11-29 12:57 | XMS_ITS | Encounter Summary ---
Author Organization [facility] Address [address] [place] [address] Phone Care Team Providers Care Estate Agent Name Role Phone Blake Kothari DO Primary Care Provider [phone] Blake Kothari DO Primary Care Provider [phone] Blake Kothari DO Primary Care Provider [phone] Encounter Details Date Type Department Care Team (Late st Contact Info) Description 02/25/2022 Orders Only [facility] [address] [place] [address] Conversion, Onbase Social History Tobacco Use Types [...] Description 07/24/2025 10:10 AM EDT Office Visit [facility] [address] [facility] [address] [place] [address] Renny Christopher DO [address] [place] [address] Scheduled Orders Name Type Priority Associated Diagnoses Orde r Schedule OUTSIDE LAB SCAN Lab Ordered: 02/25/2022 documented as of this encounter Visit Diagnoses Not on filedocumented in this encounter Care Teams Estate Agent Relationship Specialty Start Date End Date Blake Kothari DO PCP - General 10/05/18 08/22/23 Blake Kothari DO PCP - General Family Medicine 08/23/23 10/29/24 Blake Kothari DO [address] [facility] [address] [place] [address] PCP - General Family Medicine 10/30/24 documented as of this encounter
--- OUTSIDE RECORDS SUMMARY | 2024-11-29 12:57 | XMS_ITS | Encounter Summary ---
Author Organization [facility] Address [address] [place] [address] Phone Care Team Providers Care Prefitter Doors Name Role Phone Blake Kothari DO Primary Care Provider [phone] Blake Kothari DO Primary Care Provider [phone] Encounter Details Date Type Department Care Team (Late st Contact Info) Description 09/18/2023 Scanned Document [facility] [address] [place] [address] Scanning, Generic Provider Social History [...] Description 07/24/2025 10:10 AM EDT Office Visit [facility] [address] [facility] [address] [place] [address] Renny Christopher DO [address] [place] [address] documented as of this encounter Procedures Procedure Name Priority Date/Time Associated Diagnosis Comments ECHOCARDIOGRAM 09/18/2023 documented in this encounter Results * Echocardiogram (09/18/2023) Narrative 09/18/2023 Ordered by an unspecified provider. us Generic Provider Scanning CV ECHO PROCEDURES Fin al Result documented in this encounter Visit Diagnoses Not on filedocumented in this encounter Additional Health Concerns Assessment Noted Time A fall risk assessment has been complete d for the patient 09/13/2023 12:48 PM EDT documented as of this encounter Care Teams Prefitter Doors Relationship Specialty Start Date End Date Blake Kothari DO PCP - General Family Medicine 08/23/23 10/29/24 Blake Kothari DO [address] [facility] [address] [place] [address] PCP - General Family Medicine 10/30/24 documented as of this encounter
--- OUTSIDE RECORDS SUMMARY | 2024-11-29 12:57 | XMS_ITS | Encounter Summary ---
Author Organization [facility] Address [address] [place] [address] Phone Care Team Providers Care Rn Lactation Consultant Name Role Phone Blake Kothari DO Primary Care Provider [phone] Blake Kothari DO Primary Care Provider [phone] Blake Kothari DO Primary Care Provider [phone] Encounter Details Date Type Department Care Team (Late st Contact Info) Description 05/13/2020 Orders Only [facility] [address] [place] [address] Conversion, Onbase Social History Tobacco Use Types [...] Description 07/24/2025 10:10 AM EDT Office Visit [facility] [address] [facility] [address] [place] [address] Renny Christopher DO [address] [place] [address] Scheduled Orders Name Type Priority Associated Diagnoses Orde r Schedule OUTSIDE LAB SCAN Lab Ordered: 05/13/2020 documented as of this encounter Visit Diagnoses Not on filedocumented in this encounter Care Teams Rn Lactation Consultant Relationship Specialty Start Date End Date Blake Kothari DO PCP - General 10/05/18 08/22/23 Blake Kothari DO PCP - General Family Medicine 08/23/23 10/29/24 Blake Kothari DO [facility] [address] [place] [address] PCP - General Family Medicine 10/30/24 documented as of this encounter
--- OUTSIDE RECORDS SUMMARY | 2024-11-29 12:57 | XMS_ITS | Encounter Summary ---
Author Organization [facility] Address [address] [place] [address] Phone Care Team Providers Care Sand Caster Name Role Phone Blake Kothari DO Primary Care Provider [phone] Blake Kothari DO Primary Care Provider [phone] Blake Kothari DO Primary Care Provider [phone] Encounter Details Date Type Department Care Team (Late st Contact Info) Description 12/17/2020 Orders Only [facility] [address] [place] [address] Conversion, Onbase Social History Tobacco Use Types [...] Description 07/24/2025 10:10 AM EDT Office Visit [facility] [address] [facility] [address] [place] [address] Renny Christopher DO [address] [place] [address] Scheduled Orders Name Type Priority Associated Diagnoses Orde r Schedule OUTSIDE LAB SCAN Lab Ordered: 12/17/2020 documented as of this encounter Visit Diagnoses Not on filedocumented in this encounter Care Teams Sand Caster Relationship Specialty Start Date End Date Blake Kothari DO PCP - General 10/05/18 08/22/23 Blake Kothari DO PCP - General Family Medicine 08/23/23 10/29/24 Blake Kothari DO [address] [facility] [address] [place] [address] PCP - General Family Medicine 10/30/24 documented as of this encounter
--- OUTSIDE RECORDS SUMMARY | 2024-11-29 12:57 | XMS_ITS | Encounter Summary ---
Author Organization [facility] Address [address] [place] [address] Phone Care Team Providers Care Food Preparation Supervisor Name Role Phone Blake Kothari DO Primary Care Provider [phone] Blake Kothari DO Primary Care Provider [phone] Blake Kothari DO Primary Care Provider [phone] Encounter Details Date Type Department Care Team (Late st Contact Info) Description 2023 Scanned Document [facility] [address] [place] [phone] Scanning, Generic Provider Social History Tobacco Use [...] Description 07/24/2025 10:10 AM EDT Office Visit [facility] [address] [place] [address] Renny Christopher DO [address] [place] [address] documented as of this encounter Visit Diagnoses Not on filedocumented in this encounter Care Teams Food Preparation Supervisor Relationship Specialty Start Date End Date Blake Kothari DO PCP - General 10/05/18 08/22/23 Blake Kothari DO PCP - General Family Medicine 08/23/23 10/29/24 Blake Kothari DO [address] [facility] [address] [place] [address] PCP - General Family Medicine 10/30/24 documented as of this encounter
--- OUTSIDE RECORDS SUMMARY | 2024-11-29 12:57 | XMS_ITS | Encounter Summary ---
Author Organization [facility] Address [address] [place] [address] Phone Care Team Providers Care Monogram And Letter Paster Name Role Phone Blake Kothari DO Primary Care Provider [phone] Blake Kothari DO Primary Care Provider [phone] Blake Kothari DO Primary Care Provider [phone] Encounter Details Date Type Department Care Team (Late st Contact Info) Description 05/10/2020 Orders Only [facility] [address] [place] [address] Conversion, Onbase Social History Tobacco Use Types [...] Description 07/24/2025 10:10 AM EDT Office Visit [facility] [address] [facility] [address] [place] [address] Renny Christopher DO [address] [place] [address] Scheduled Orders Name Type Priority Associated Diagnoses Orde r Schedule OUTSIDE LAB SCAN Lab Ordered: 05/10/2020 documented as of this encounter Visit Diagnoses Not on filedocumented in this encounter Care Teams Monogram And Letter Paster Relationship Specialty Start Date End Date Blake Kothari DO PCP - General 10/05/18 08/22/23 Blake Kothari DO PCP - General Family Medicine 08/23/23 10/29/24 Blake Kothari DO [facility] [address] [place] [address] PCP - General Family Medicine 10/30/24 documented as of this encounter
--- OUTSIDE RECORDS SUMMARY | 2024-11-29 12:57 | XMS_ITS | Encounter Summary ---
Author Organization [facility] Address [address] [place] [address] Phone Care Team Providers Care Dry End Tester Name Role Phone Blake Kothari DO Primary Care Provider [phone] Blake Kothari DO Primary Care Provider [phone] Blake Kothari DO Primary Care Provider [phone] Encounter Details Date Type Department Care Team (Late st Contact Info) Description 07/25/2023 Scanned Document [facility] [address] [place] [phone] Scanning, Generic Provider Social History Tobacco Use [...] Visit [facility] [address] [place] [address] Renny Christopher DO [address] [place] [address] documented as of this encounter Procedures Procedure Name Priority Date/Time Associated Diagnosis Comments STRESS TEST - ONBASE SCAN 07/25/2023 documented in this encounter Results * STRESS TEST - ONBASE SCAN (07/25/2023) Narrative 07/25/2023 Ordered by an unspecified provider. us Generic Provider Scanning CV STRESS PROCEDURES F inal Result documented in this encounter Visit Diagnoses Not on filedocumented in this encounter Care Teams Dry End Tester Relationship Specialty Start Date End Date Blake Kothari DO PCP - General 10/05/18 08/22/23 Blake Kothari DO PCP - General Family Medicine 08/23/23 10/29/24 Blake Kothari DO [address] [facility] [address] [place] [address] PCP - General Family Medicine 10/30/24 documented as of this encounter
--- OUTSIDE RECORDS SUMMARY | 2024-11-29 12:57 | XMS_ITS | Clinical Summary ---
Author Organization [facility] Address [address] [place], [place] [address] Care Team Providers Care Wire Mill Operator Name Role Phone Hossein Martin MD Unavailable + [phone] Blake Kothari Primary Care Provider [phone] Allergies No known active allergies Medications aspirin, enteric coated (ASPIRIN, ENTERIC COATED) 81 mg EC tablet Take 81 mg by mouth once daily. 0 Active SYNTHROID 50 mcg tablet Take 1 tablet by mouth every morning. 1 Active Vit B Comp and C-Vit E-FA-Briana-Zn 0.4 mg tab Take 1 capsule by mouth once daily. 4 Active antiox #8/om3/dha/epa/l ut/zeax (PRESERVISION AREDS 2, OMEGA-3, ORAL) Take 1 tablet by mouth once daily. 1 Active carvedilol (COREG) 3.125 mg tablet Take 3.125 mg by mouth two times a day with meals. Active glipiZIDE (GLUCOTROL XL) 5 mg 24 hr tablet Take 5 mg by mouth daily at bedtime. Active lisinopril (ZESTRIL) 5 mg tablet Take 5 mg by mouth once daily. Active metFORMIN (GLUCOPHAGE) 500 mg tablet Take 500 mg by mouth two times a day. Active montelukast (SINGULAIR) 10 mg tablet Take 10 mg by mouth daily at bedtime. Active isosorbide mononitrate ER (IMDUR) 60 mg 24 hr tablet Take 1 tablet by mouth once daily. 4 Active atorvastatin (LIPITOR) 40 mg tablet Take 40 mg by mouth daily at bedtime. 5 Active nitroglycerin sublingual (NITROQUICK) 0.4 mg SL tablet Dissolve 0.4 mg under the tongue every 5 minutes as needed for chest pain. Active ranolazine ER (RANEXA) 500 mg 12 hr tablet Take 1 tablet by mouth two times a day. 180 tablet 3 5 Active Encounters Date Type Department Care Team Description 09/06/2024 Patient Msg Cardiology [address] [place] [address] Pilo Cagle MD Appointment Cancellation Request from Last 3 Months Family History Medical History Relation Comments Diabetes Father Heart Attack Father in his 60s Relation Status Comments Father Social History Tobacco Use Types Packs/Day Years Used Date Smoking Tobacco: Former Cigarettes Smokeless Tobacco: Never Tobacco Cessation:Counseling Given: Not Answered Comments:Quit smoking in 1957. Smoked 22 years. Alcohol Use Standard Drinks/Week Comments Not Currently 0 (1 standard drink = 0.6 oz pur e alcohol) Area Deprivation Index Answer Date Justyn rded National Score (1-100), lower number is lower ri sk 74 06/11/2024 State Score (1-10), lower number is lower risk 6 06/11/2024 Data from: https://www.neighborhoodatlas.medicine.[facility].edu/. Last address used for calculation [address] 06/11/2024 Sex and Gender Information Value Date Recorded Sex Assigned at Not on file Legal Sex Male 11:25 AM EDT Gender Identity Not on file Sexual Orientation Not on file Last Filed Vital Signs Vital Sign Reading Time Taken Comments Blood Pressure 169/64 06/11/2024 1:52 PM EST Pulse 59 06/11/2024 1:52 PM EST Temperature - - Respiratory Rate 18 06/11/2024 1:52 PM EST Oxygen Saturation 100% 06/11/2024 1:52 PM EST RA Inhaled Oxygen Concentration - - Weight 72.6 kg (160 lb) 06/11/2024 1:52 PM EST Height 175.3 cm (5' 9 ) 06/11/2024 1:52 PM EST Body Mass Index 23.63 06/11/2024 1:52 PM EST Plan of Treatment Health Maintenance Due Date Last Done Comments Anxiety Screening 1953 Depression Screening 1953 Medicare Annual Wellness Visit 07/14/2001 RSV Vaccine (1 - 1-dose 75+ series) 08/03/2011 Diabetes Screening 05/23/2023 05/23/2020, 05/23/2020 Advance Directive Discussion 05/16/2024 Covid-19 Vaccine (6 - 2023-2 5 season) 2024 05/07/2024, 09/28/2023, 03/31/2021, Additional history exists Influenza Vaccine (#1) 2025 , 02/15/2023, 03/01/2022, Additional history exists DTaP,Tdap,Td Vaccine (3 - Td or Tdap) 02/11/2030 02/12/2020, 01/08/2020 Shingrix Vaccine Completed 12/04/2018, , 12/15/2016 Pneumococcal Vaccine: 50+ Completed 2021, 02/12/2020, 01/08/2020 Goals Goal Patient Goal Type Associated Problems Recent Progress Patient-Stated? Author Blood Pressure < 130/80 Blood Pressure 169/64( 025 1:52 PM EST) Dylan Doe MD [place] [address] Care Teams Wire Mill Operator Relationship Specialty Start Date End Date Saniya Blakesuly Coates [address] [place] [phone] PCP - General Family Medicine 06/11/24 Hossein Martin MD [address] [place] [phone] Referring Cardiovascular Surgery 01/24/24
--- OUTSIDE RECORDS SUMMARY | 2024-11-29 12:57 | XMS_ITS | Encounter Summary ---
Author Organization [facility] Address [address] [place] [address] Care Team Providers Care Tube Bending Machine Operator Name Role Phone Hossein Martin MD Unavailable + [phone] Blake Kothari Primary Care Provider [phone] Source Comments In the event this information is protected by the Federal Confidentiality of Alcohol and Drug AbusePatient Records regulations: The Federal rules restrict any use of the information to criminally investigate or prosecute any alcohol or drug abuse patient.[facility] Reason for Visit * Reason Comments External Referrals/resources Encounter Details Date Type Department Care Team (Late st Contact Info) Description 01/24/2024 Telephone Referring Physician [address] [place] [phone] Pcp, No, MAINTENANCE AIDE External Referrals/resources Social History Tobacco Use Types Packs/Day Years Used Date Smoking Tobacco: Never Assessed Sex and Gender Information Value Date Recorded Sex Assigned at Not on file Legal Sex Male 11:25 AM EDT Gender Identity Not on file Sexual Orientation Not on file documented as of this encounter Miscellaneous Notes * Telephone Encounter - Bibi Bautista - 01/24/2024 2:49 PM EDT Patient: Ever Klein Date of : 1935 Patient phone number: [phone] Referring Provider for the encounter: Hossein Martin Requesting Provider: n/a Reason for requesting visit (RFV/signs and symptoms/diagnosis): 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 Person calling: External referral Return call to: Patient Medical Records/Insurance Card scanned into [employer]: No Comments: n/a documented in this encounter Plan of Treatment Not on file documented as of this encounter Visit Diagnoses Not on filedocumented in this encounter Care Teams Tube Bending Machine Operator Relationship Specialty Start Date End Date Blake Kothari [address] [place] [phone] PCP - General Family Medicine 06/11/24 Hossein Martin MD [address] [place] [phone] Referring Cardiovascular Surgery 01/24/24 documented as of this encounter
--- OUTSIDE RECORDS SUMMARY | 2024-11-29 12:57 | XMS_ITS | Encounter Summary ---
Author Organization [facility] Address [address] [place] [address] Phone Care Team Providers Care Vacuum Pan Tender Name Role Phone Blake Kothari DO Primary Care Provider [phone] Blake Kothari DO Primary Care Provider Encounter Details Date Type Department Care Team (Late st Contact Info) Description 01/17/2024 Scanned Document [facility] [address] [place] [phone] Scanning, Generic Provider Social History Tobacco Use [...] Description 07/24/2025 10:10 AM EDT Office Visit [facility] [address] [facility] [address] [place] [address] Renny Christopher DO [address] [facility] [address] [place] [address] documented as of this encounter Procedures Procedure Name Priority Date/Time Associated Diagnosis Comments OUTSIDE IMAGING SCAN 01/17/2024 documented in this encounter Results * OUTSIDE IMAGING SCAN (01/17/2024) Anatomical Region Laterality Modality Other Narrative 01/17/2024 Ordered by an unspecified provider. us Generic Provider Scanning OUTSIDE SCAN Final Result documented in this encounter Visit Diagnoses Not on filedocumented in this encounter Additional Health Concerns Assessment Noted Time A fall risk assessment has been complete d for the patient 09/13/2023 12:48 PM EDT documented as of this encounter Care Teams Vacuum Pan Tender Relationship Specialty Start Date End Date Blake Kothari DO PCP - General Family Medicine 08/23/23 10/29/24 Blake Kothari DO [address] [facility] [address] [place] [address] PCP - General Family Medicine 10/30/24 documented as of this encounter
--- OUTSIDE RECORDS SUMMARY | 2024-11-29 12:57 | XMS_ITS | Encounter Summary ---
Author Organization [facility] Address [address] [place] [address] Phone Care Team Providers Care Manager Van Name Role Phone Blake Kothari DO Primary Care Provider [phone] Blake Kothari DO Primary Care Provider [phone] Blake Kothari DO Primary Care Provider [phone] Encounter Details Date Type Department Care Team (Late st Contact Info) Description 04/28/2020 Orders Only [facility] [address] [place] [address] Conversion, Onbase Social History Tobacco Use Types [...] Description 07/24/2025 10:10 AM EDT Office Visit [facility] [address] [facility] [address] [place] [phone] Renny Christopher DO [address] [facility] [address] [place] [address] Scheduled Orders Name Type Priority Associated Diagnoses Orde r Schedule OUTSIDE LAB SCAN Lab Ordered: 04/28/2020 OUTSIDE LAB SCAN Lab Ordered: 04/28/2020 documented as of this encounter Visit Diagnoses Not on filedocumented in this encounter Care Teams Manager Van Relationship Specialty Start Date End Date Blake Kothari DO PCP - General 10/05/18 08/22/23 Blake Kothari DO PCP - General Family Medicine 08/23/23 10/29/24 Blake Kothari DO [facility] [address] [place] [address] PCP - General Family Medicine 10/30/24 documented as of this encounter
--- OUTSIDE RECORDS SUMMARY | 2024-11-29 12:57 | XMS_ITS | Encounter Summary ---
Author Organization [facility] Address [address] [place] [address] Phone Care Team Providers Care Personal Property Appraiser Name Role Phone Blake Kothari DO Primary Care Provider [phone] Blake Kothari DO Primary Care Provider [phone] Blake Kothari DO Primary Care Provider [phone] Encounter Details Date Type Department Care Team (Late st Contact Info) Description 09/19/2018 Orders Only [facility] [address] [place] [address] Conversion, Onbase Social History Tobacco Use Types [...] Description 07/24/2025 10:10 AM EDT Office Visit [facility] [address] [facility] [address] [place] [address] Renny Christopher DO [address] [place] [address] Scheduled Orders Name Type Priority Associated Diagnoses Orde r Schedule OUTSIDE LAB SCAN Lab Ordered: 09/19/2018 documented as of this encounter Visit Diagnoses Not on filedocumented in this encounter Care Teams Personal Property Appraiser Relationship Specialty Start Date End Date Blake Kothari DO PCP - General 10/05/18 08/22/23 Blake Kothari DO PCP - General Family Medicine 08/23/23 10/29/24 Blake Kothari DO [facility] [address] [place] [address] PCP - General Family Medicine 10/30/24 documented as of this encounter
--- OUTSIDE RECORDS SUMMARY | 2024-11-29 12:57 | XMS_ITS | Patient Health Record ---
Author Organization [facility] [place] Address [address] [place] [address] Care Team Providers Care Photography Manager Name Role Phone Blake Kothari DO Primary Care Provider Selvin Steve Unavailable [phone] Ana Patrick Unavailable [phone] Allergies No Known Allergies Reason For Referral No Information Medications Medication SIG (Take, Route, Frequency, Duration) [...] Notes Tobacco use: Former smoker Vital Signs Heart Rate 88 /min 05/07/2024 Temperature 98.2 degrees Fahrenheit 05/07/2024 Oximetry 99 % 05/07/2024 Height 69 in 02/09/2024 Weight 166 lbs 02/09/2024 BMI 24.51 kg/m2 02/09/2024 Encounters Encounter Location Date Provider Diagnosis [facility] (PODIATRY) [address] [place] [address] [place] [address] 02/09/2024 Ana Patrick Pain in toes of both feet 729.5 [facility] (PODIATRY) [address] [place] [address] [place] [address] 05/07/2024 Ana Patrick Pain in right toe(s) M79.674 [facility] (PODIATRY) [address] [place] [address] [place] [address] 08/13/2024 Selvin Corrigan Assessments Encounter Date Diagnosis (ICD Code) Assessment Notes Treatment Notes Treatment Clinical Notes Section Notes 02/09/2024 Pain in toes of both feet (ICD9-CM - 729.5) The patient is an 88-year-old gentleman who presents for evaluation of painful elongated toenails of both feet. After verbal consent, toenails 1 through 10 were sharply debrided with nail nippers without incident. He noted pain relief postprocedure. Follow-up in 3 months or as needed. 05/07/2024 Pain in right toe(s) (ICD-10 - M79.674) Plan Of Treatment No Information Insurance Providers Payer Name Payer Address Payer Phone Subscriber Number Group Number Insured Name Patient Relationship to Insured Coverage Start Date Coverage End Date MEDICARE [place] [address] [place] [place] [address] [id number] Ever Klein Self - patient is the insured [employer] [place] [address] [employer] [place] [address] [place] [address] [phone] [id number] Ever Klein Self - patient is the insured Medical (General) History Medical History History ICD Code diabetes hypertension asthma arthritis heart disease high cholesterol Surgical History Surgery Date(Month/Year) heart stents 2013 heart stents 2007
--- OUTSIDE RECORDS SUMMARY | 2024-11-29 12:57 | XMS_ITS | Encounter Summary ---
Author Organization [facility] Address [address] [place] [address] Phone Care Team Providers Care Mud Worker Name Role Phone Blake Kothari DO Primary Care Provider [phone] Blake Kothari DO Primary Care Provider [phone] Blake Kothari DO Primary Care Provider [phone] Encounter Details Date Type Department Care Team (Late st Contact Info) Description 05/01/2020 Orders Only [facility] [address] [place] [address] Conversion, Onbase Social History Tobacco Use Types [...] Description 07/24/2025 10:10 AM EDT Office Visit [facility] [address] [facility] [address] [place] [address] Renny Christopher DO [address] [place] [address] Scheduled Orders Name Type Priority Associated Diagnoses Orde r Schedule OUTSIDE LAB SCAN Lab Ordered: 05/01/2020 documented as of this encounter Visit Diagnoses Not on filedocumented in this encounter Care Teams Mud Worker Relationship Specialty Start Date End Date Blake Kothari DO PCP - General 10/05/18 08/22/23 Blake Kothari DO PCP - General Family Medicine 08/23/23 10/29/24 Blake Kothari DO [facility] [address] [place] [address] PCP - General Family Medicine 10/30/24 documented as of this encounter
--- OUTSIDE RECORDS SUMMARY | 2024-11-29 12:57 | XMS_ITS | Encounter Summary ---
Author Organization [facility] Address [address] [place] [address] Phone Care Team Providers Care Ob/Gyn Nurse Name Role Phone Blake Kothari DO Primary Care Provider [phone] Blake Kothari DO Primary Care Provider [phone] Encounter Details Date Type Department Care Team (Late st Contact Info) Description 09/17/2023 Scanned Document [facility] [address] [place] [address] Scanning, Generic Provider Social History [...] Description 07/24/2025 10:10 AM EDT Office Visit [facility] [address] [facility] [address] [place] [phone] Renny Christopher DO [address] [place] [address] documented as of this encounter Procedures Procedure Name Priority Date/Time Associated Diagnosis Comments OUTSIDE IMAGING SCAN 09/17/2023 documented in this encounter Results * OUTSIDE IMAGING SCAN (09/17/2023) Anatomical Region Laterality Modality Other Narrative 09/17/2023 Ordered by an unspecified provider. us Generic Provider Scanning OUTSIDE SCAN Final Result documented in this encounter Visit Diagnoses Not on filedocumented in this encounter Additional Health Concerns Assessment Noted Time A fall risk assessment has been complete d for the patient 09/13/2023 12:48 PM EDT documented as of this encounter Care Teams Ob/Gyn Nurse Relationship Specialty Start Date End Date Blake Kothari DO PCP - General Family Medicine 08/23/23 10/29/24 Blake Kothari DO [address] [facility] [address] [place] [address] PCP - General Family Medicine 10/30/24 documented as of this encounter
--- OUTSIDE RECORDS SUMMARY | 2024-11-29 12:57 | XMS_ITS | Encounter Summary ---
Author Organization [facility] Address [address] [place] [address] Phone Care Team Providers Care Vascular Neurologist Name Role Phone Blake Kothari DO Primary Care Provider [phone] Blake Kothari DO Primary Care Provider [phone] Blake Kothari DO Primary Care Provider [phone] Encounter Details Date Type Department Care Team (Late st Contact Info) Description 09/25/2019 Orders Only [facility] [address] [place] [address] Conversion, Onbase Social History Tobacco Use Types [...] Description 07/24/2025 10:10 AM EDT Office Visit [facility] [address] [facility] [address] [place] [address] Renny Christopher DO [address] [place] [address] Scheduled Orders Name Type Priority Associated Diagnoses Orde r Schedule OUTSIDE LAB SCAN Lab Ordered: 09/25/2019 documented as of this encounter Visit Diagnoses Not on filedocumented in this encounter Care Teams Vascular Neurologist Relationship Specialty Start Date End Date Blake Kothari DO PCP - General 10/05/18 08/22/23 Blake Kothari DO PCP - General Family Medicine 08/23/23 10/29/24 Blake Kothari DO [facility] [address] [place] [address] PCP - General Family Medicine 10/30/24 documented as of this encounter
--- OUTSIDE RECORDS SUMMARY | 2024-11-29 12:58 | XMS_ITS | Clinical Summary ---
Author Organization [facility] Address [address] [place] [address] Phone Care Team Providers Care Hearing Impaired Teacher Name Role Phone Saniya Blake Núñez DO Primary Care Provider [phone] Allergies No known active allergies Medications aspirin 81 mg EC tablet Take 1 tablet (81 mg) by mouth once daily. Active glipiZIDE XL (Glucotrol XL) 5 mg 24 hr tablet Take 1 tablet (5 mg) by mouth once daily. 3 Active montelukast (Singulair) 10 mg tablet Take 1 tablet (10 mg) by mouth once daily. Active metFORMIN (Glucophage) 500 mg tablet Take 1 tablet (500 mg) by mouth 2 times daily (morning and late afternoon). Active carvedilol (Coreg) 3.125 mg tabletIndications: CAD, multiple vessel,Hypertensio n, unspecified type Take 1 tablet (3.125 mg) by mouth 2 times daily (morning and late afternoon). 180 tablet 3 4 02/20/20 25 Active lisinopril 5 mg tabletIndications: Essential (primary) hypertension Take 1 tablet (5 mg) by mouth once daily. 90 tablet 3 4 02/27/20 25 Active magnesium chloride (Slow-Mag) 71.5 mg tablet,delayed release (DR/EC) Take 1 tablet (71.5 mg) by mouth once daily. Active vit A/vit C/vit E/zinc/copper (PRESERVISION AREDS ORAL) Take 1 tablet by mouth early in the morning.. Active isosorbide mononitrate ER (Imdur) 60 mg 24 hr tablet Take 1 tablet (60 mg) by mouth early in the morning.. 5 Active ranolazine (Ranexa) 500 mg 12 hr tablet Take 1 tablet (500 mg) by mouth 2 times a day. 5 Active atorvastatin (Lipitor) 40 mg tablet Take 1 tablet (40 mg) by mouth once daily. Active nitroglycerin (Nitrostat) 0.4 mg SL tabletIndications: ASHD (arteriosclerotic heart disease),History of PTCA,Angina, class I Place 1 tablet (0.4 mg) under the tongue every 5 minutes if needed for chest pain. 100 tablet 1 5 Active levothyroxine (Synthroid, Levoxyl) 50 mcg tablet Take 1 tablet (50 mcg) by mouth once daily in the morning. Take before meals. 3 11/14/19 25 Discontin ued(Thera py completed ) nitroglycerin (Nitrostat) 0.[address] 1 tablet (0.4 mg) under the tongue every 5 minutes if needed for chest pain. 11/14/19 25 Discontin ued(Reord er) isosorbide mononitrate ER (Imdur) 30 mg 24 hr tabletIndications: Angina pectoris, unspecified TAKE 1 TABLET BY MOUTH DAILY 90 tablet 3 4 11/14/19 25 Discontin ued(Alter james therapy) atorvastatin (Lipitor) 20 mg tabletIndications: CAD, multiple vessel,Mixed hyperlipidemia Take 1 tablet (20 mg) by mouth once daily at bedtime. 90 tablet 3 4 11/14/19 25 Discontin ued(Dose adjustmen t) multivit with min-folic acid 0.4 mg tablet Take 1 capsule by mouth once daily. 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, class I 02/24/2023 ASHD (arteriosclerotic heart disease) 02/24/2023 Diabetes mellitus (Multi) 02/24/2023 DVT (deep venous thrombosis) (Multi) 02/24/2023 Dyspnea 02/24/2023 HTN (hypertension) 02/24/2023 Hyperlipemia 02/24/2023 Encounters Date Type Department Care Team Description 11/13/2024 9:50 AM EDT Office Visit [address] [place] [id number] Renny Christopher DO ASHReji (arteriosclerotic heart disease); History of PTCA; Primary hypertension; Mixed hyperlipidemia; Angina, class I; Aortic valve insufficiency, etiology of cardiac valve disease unspecified; Abdominal aortic aneurysm (AAA) without rupture, unspecified part; BMI 26.0-26.9,adult; Former smoker 11/13/2024 Travel 10/15/2024 Scanned Document [facility] [address] [place] [id number] Scanning, Generic Provider from Last 3 Months Social History Tobacco Use Types Packs/Day Years [...] - Respiratory Rate - - Oxygen Saturation 94% 08/23/2023 4:25 PM EDT Inhaled Oxygen Concentration - - Weight 76.4 kg (168 lb 6.4 oz) 11/13/2024 10:11 AM EDT Height 170.2 cm (5' 7 ) 11/13/2024 10:11 AM EDT Body Mass Index 26.38 11/13/2024 10:11 AM EDT Plan of Treatment Upcoming Encounters Date Type Department Care Team (Late st Contact Info) Description 07/24/2025 10:10 AM EDT Office Visit [address] [place] [address] Renny Christopher DO [address] [facility] [address] [place] [address] Health Maintenance Due Date Last Done Comments Diabetes: Hemoglobin A1C 1936 Diabetes: Urine Protein Screening 1935 Lipid Panel 1936 RSV High Risk: (Elderly (60+) or Population) (1 - 1-dose 75+ series) 08/03/2011 Medicare Annual Wellness Visit (AWV) 05/27/2024 05/26/2023, 02/24/2021 COVID-19 Vaccine (3 - 2023- season) 2024 05/07/2024, 09/28/2023 Influenza Vaccine (#1) 2025 , 02/15/2023, 03/01/2022, Additional history exists Diabetes: Retinopathy Screening 11/02/2025 11/03/2023, 10/29/2022, 07/09/2020, Additional history exists DTaP/Tdap/Td Vaccines (3 - Td or Tdap) 02/11/2030 02/12/2020, 01/08/2020 Zoster Vaccines Completed 12/04/2018, 08/15, 12/15/2016 Pneumococcal Vaccine Completed 10/23/2021, 02/12/2020, 01/08/2020, Additional history exists HIB Vaccines Aged Out No longer eligi ble based on patient's age to complete this topic HPV Vaccines Aged Out No longer eligi ble based on patient's age to complete this topic Hepatitis A Vaccines Aged Out No long er eligible based on patient's age to complete this topic Hepatitis B Vaccines Aged Out No long er eligible based on patient's age to complete this topic IPV Vaccines Aged Out No longer eligi ble based on patient's age to complete this topic Meningococcal Vaccine Aged Out No jose ezequiel eligible based on patient's age to complete this topic Rotavirus Vaccines Aged Out No longer eligible based on patient's age to complete this topic Insurance MEDICARE PART A AND B [facility] Care Teams Hearing Impaired Teacher Relationship Specialty Start Date End Date Blake Kothari DO [facility] [address] [place] [address] PCP - General Family Medicine 10/30/24
--- OUTSIDE RECORDS SUMMARY | 2024-11-29 12:58 | XMS_ITS | Clinical Summary ---
Author Organization [employer] [facility] Address [facility] [id number] [address] [place] [address] Care Team Providers Care Substation Manager Name Role Phone No Pcp, No Pcp Primary Care Provider Unavailabl e Social History Tobacco Use Types Packs/Day Years Used Date Smoking Tobacco: Never Assessed Childcare Answer Date Recorded Childcare Unknown 05/23/2020 Employment Answer Date Recorded Employment Unknown 05/23/2020 Purpose - Life Answer Date Recorded Purpose and direction in life Unknown Sex and Gender Information Value Date Recorded Sex Assigned at Not on file Legal Sex Male 11:37 AM EDT Gender Identity Not on file Sexual Orientation Not on file Plan of Treatment Not on file Medical Devices Not on file Insurance [facility]ICARE [facility] [place] [address] Care Teams Substation Manager Relationship Specialty Start Date End Date No P[place], [place] [id number] PCP - General Family Medicine 05/24/20
--- NOTE | 2024-11-29 13:14 | PM.WCHP ---
Wound Care H&P: HPI History of Present Illness Narrative: The patient is an 89-year-old gentleman with history of type 2 diabetes and neuropathy who presents for routine toenail care. He has no complaints in regards to his feet at this time. Exam Narrative: Exam Narrative: Dermatologic: No ulcerative or preulcerative lesions are noted. Toenails 1 through 10 are elongated, mycotic, and thickened. No evidence of paronychia. Musculoskeletal: No gross deformity, strength and range of motion are within normal limits Neurologic: Achilles reflexes are absent bilaterally, vibratory sensation is present bilaterally, monofilament testing revealed protective sensation intact in 1/5 areas on the right and 3/5 areas on the left. Vascular: Dorsalis pedis pulses are 2/4 bilaterally. PT pulses are nonpalpable bilaterally. Capillary refill is less than 3 seconds bilaterally. Varicosities are present bilaterally. Skin is warm and dry, but shiny. No edema noted. Digital hair is absent. Assessment and Plan Assessment and Plan (1) Disorder of nail due to another disorder: (2) Type 2 diabetes mellitus with diabetic neuropathy, unspecified: (3) Diminished pulses in lower extremity: (4) Tinea unguium: Plan Routine toenail care performed. Follow-up in 3 months. Acute Procedures Podiatry Nail Debridement Class B Findings Absent posterior tibial pulse: bilateral Advanced trophic changes as evidenced by any three of the following: decreased hair growth, nail changes (thickening), pigmentary changes (discoloring) and skin texture (thin or shiny) Class C Findings Claudication: No Temperature changes: No Edema: No Nail debridement paresthesia (abnormal spontaneous sensations in the feet): No Burning: No Qualifies If: Qualifiers If:: A patient qualifies for nail debridement if they have: 1 class A finding (Q7) 2 class B findings (Q8) OR 1 class B & 2 class C findings in addition to a primary condition (Q9) Nail Procedure Nail Procedure Time out: Yes Nail procedure: other (Debridement of toenails 1 through 10) Number of affected nails: 10 Location (toes): left and right Procedure successful: Yes Patient tolerated procedure: well and no complications Additional comments: Toenails 1 through 10 were sharply debrided with nail nippers without incident and to the patient satisfaction.
== END 2024-11-29 12:52 | disposition home or self-care (01) ==
LOC: WC 12:54
PROVIDERS: Visit Provider Physician Assistant
DX: L60.8 Other nail disorders (principal); E11.40 Type 2 diabetes mellitus with diabetic neuropathy, unspecified; I70.203 Unspecified atherosclerosis of native arteries of extremities, bilateral legs; B35.1 Tinea unguium
CPT/HCPCS: 11721

== ENCOUNTER 2025-02-28 13:25 | Outpatient (OUT) | payer MEDICARE, OTHER, SELFPAY ==
--- OUTSIDE RECORDS SUMMARY | 2025-02-28 13:32 | XMS_ITS | CCD ---
Author Organization [facility] Care Team Providers Care Healthcare Facility Administrator Name Role Phone Justice Singh Unavailable Unavailable Unavailable Justice Singh Unavailable Gerhard Grissom Unavailable Unavailable Unavailable JUSTICE SINGH Primary Care Physician [phone] DO Justice Singh Primary Care Provider [phone] Formerly [facility], [facility], [facility] Attending Provider DO Justice Singh Attending Provider Dr. Mayra Person Attending Unavaila ble Dr. Justice Singh Primary Care Unavailabl e DO Justice Singh Primary Care Provider DO Justice Singh Attending Provider MD John Mora Emergency Provider MD Gerhard Grissom Attending Provider [phone] Ignacia Molina Unavailable DO Justice Singh Primary Care Provider MD Gerhard Grissom Attending Provider DO Justice Singh Attending Provider DO Justice Singh Primary Care Provider DO Justice Singh Attending Provider [phone] MAXX Molina Attending Provider Mayra Person Referring Unavailable Dr. Justice Singh Primary Care Unavailabl e Mayra Person Attending Unavailable Mayra Person Referring Unavailable Dr. Justice Singh Primary Care Unavailabl e Mayra Person Attending Unavailable Norm Cardozo Unavailable Mercedes Davis Unavailable Kuns, DO Justice Primary Care Provider Kuns, DO Justice Attending Provider Kuns, DO Justice Primary Care Provider [phone] Kuns, DO Justice Attending Provider MAXX Molina Attending Provider MD Winnie Martin Attending Provider MD Gerhard Grissom Attending Provider MD Autumn Davis Referring Provider [phone] DO Joie Christopher Attending Provider Kuns Justice COLLADO R Primary Care Provider Kuns DO, Justice R Primary Care Provider MAC CASTILLO Referring Unavailable SHANESJUSTICE R Primary Care Unavailable MAC CASTILLO Attending Unavailable KUNS JUSTICE R Primary Care Unavailable Kuns, DO Justice Primary Care Provider [phone] Kuns, DO Justice Attending Provider Kuns Justice COLLADO R Primary Care Provider Unavailab le Shanes, DO Justice Primary Care Provider DO Merlin Escobar Emergency Provider [phone] MD Ashley Griffiths Admit Provider MD Ashley Griffiths Attending Provider [phone] MD Richard Galvan Attending Provider MARY Lyn Other Provider Unavailable MD Rowdy Haines Other Provider MD Winnie Martin Other Provider Saniya, DO Justice Primary Care Provider MD Autumn Davis Other Provider Shanes, DO Justice Primary Care Provider KriseDO Carlene Emergency Provider MD Ashley Griffiths Admit Provider MD Ashley Griffiths Attending Provider MARY Lyn Other Provider Unavailable MD Rowdy Haines Other Provider MD Winnie Martin Other Provider [phone] MD Autumn Davis Other Provider DO Ayla Estrada Other Provider Winnie Martin MD Unavailable Justice Singh DO R Primary Care Provider Saniya COLLADO, Justice Primary Care Provider Carlene Booker DO Emergency Provider [phone] Ashley Griffiths MD Admit Provider Ashley Griffiths MD Attending Provider Eboni HERNANDEZ, [facility] Other Provider Unavailable Rowdy Haines MD Other Provider Winnie Martin MD Other Provider Autumn Davis MD Other Provider Ayla Estrada DO Other Provider Justice Singh Primary Care Provider MIGUELANGEL MORSE Attending Unavailable WINNIE MARTIN Referring Unavaila ble JUSTICE SINGH Primary Care Unavailable MIGUELANGEL MORSE Referring Unavailable JUSTICE SINGH Primary Care Unavailable Justice Singh DO R Primary Care Provider [phone] Justice Singh DO Primary Care Provider Justice Singh DO Attending Provider JUDI MUIR Attending Unavailable FELTER, MERCEDES P Referring Unavailable JEREMY CELIS Attending Unavailable FELTER, MERCEDES P Referring Unavailable CLARITA PICKETT Attending Unavailable FELTER, MERCEDES P Referring Unavailable JUDI MUIR Attending Unavailable FELTER, MERCEDES P Referring Unavailable CLARITA PICKETT Attending Unavailable FELTER, MERCEDES P Referring Unavailable Kuns DO, Justice Primary Care Provider Kuns DO, Justice Attending Provider Kuns DO, Justice Primary Care Provider [phone] Kuns DO, Justice Attending Provider Kuns DO, Justice R Primary Care Provider [phone] Kuns DO, Justice Primary Care Provider Winnie Martin MD Attending Provider RENNY CHRISTOPHER Attending Unavailable ASHWIN, RENNY Hernandez Referring Unavailable KUNS, JUSTICE R Primary Care Unavailable RENNY CHRISTOPHER Attending Unavailable ASHWIN, RENNY Hernandez Referring Unavailable KUNS, JUSTICE R Primary Care Unavailable Kuns DO, Justice Primary Care Provider [phone] Kuns DO, Justice Attending Provider [phone] Tresa Girard MD Attending Provider Merlin Escobar DO Emergency Provider Jg Olvera MD Admit Provider Jg Olvera MD Attending Provider Eboni HERNANDEZ, Angella Other Provider Unavailable Joie Christopher DO Other Provider Ryanne Bhatt MD Other Provider Mayra Person MD Other Provider [phone] Char Mora APRN Other Provider Genesis Santos MD Other Provider Gloria [facility]-, Adriana Kuhn Other Provider Jg Olvera MD Other Provider Rowdy Haines MD Other Provider Mario HAWKINS, Winnie Marrero Attending Provider Mario HAWKINS, Winnie Marrero Other Provider [phone] Ryan HAWKINS, Autumn Other Provider Lou Blair APRN Other Provider Shanes , Justice Primary Care Provider Kunrohit COLLADO, Justice Attending Provider [phone] Kuns, Justice Admitting Unavailable Kuns, Justice Attending Unavailable Kuns, Justice Primary Care Unavailable Kuns, Justice Admitting Unavailable Kuns, Justice Attending Unavailable Kuns, Justice Primary Care Unavailable Kuns, Justice Primary Care Unavailable Mercedes, Tresa Isaacs Attending Unavail able Mercedes, Tresa Isaacs Admitting Unavail able Angella Lyn Consulting Unavailable MayJg akers Admitting Unavailable Kuns, Justice Primary Care Unavailable Jg Olvera Attending Unavailable Angella Lyn Consulting Unavailable Rowdy Haines Consulting Unavailable Winnie Martin Consulting Keren Davis, Autumn Consulting Unavailable Lou Blair Consulting Unavailable Gerhard Grissom Attending Unavailable Gerhard Grissom Admitting Unavailable Kuns, Justice Primary Care Unavailable Kuns, Justice Primary Care Unavailable Kuns, Justice Admitting Unavailable Kuns, Justice Attending Unavailable Allergies Allergy Classification Reported Allergen(s) Allergy Type Date of Onset Reaction(s) Facility (20 sources) metFORMIN Drug Allergy loose stools, loose stools at high doses [facility] Other (20 sources) SITagliptin Drug Allergy constipation / ineffective ParentingInformer [facility] Other (2 sources) metFORMIN Drug Allergy loose stools ParentingInformer [facility] Other (1 source) SITagliptin Drug Allergy [address] [place] [address] Repository Medications Current Medications Medication Drug Class(es) Dates Sig (Normalized) Sig (Original) antiox #8/om3/dha/epa/lut /zeax (PRESERVISION AREDS 2, OMEGA-3, ORAL) (2 sources) Start: 12-25-2020 take 1 tablet by mouth once daily antiox #8/om3/dha/epa/lut /zeax (PRESERVISION AREDS 2, OMEGA-3, ORAL) Take 1 tablet by mouth once daily. 12/25/2020 Active Aspir-81 81 MG (20 sources) take 1 tablet by mouth once daily Aspir-81 81 MG 1 tablet Orally Once a day Active aspirin 81 mg delayed release oral tablet (20 sources) Platelet Aggregation Inhibitor, Nonsteroidal Anti-inflammatory Drug Start: 04-06-2017 take 1 tablet by mouth once daily in the morning Aspirin 81 mg Tablet,Delayed Release (Dr/Ec) Active 1 TAB PO Every morning April 06, 2017 1:00am Complies with drug therapy aspirin 500 mg / caffeine 32.5 mg oral tablet (3 sources) Platelet Aggregation Inhibitor, Nonsteroidal Anti-inflammatory Drug, Central Nervous System Stimulant, Methylxanthine take 2 tablets by mouth every twelve hours [facility] [employer] 500-32.5 MG 2 tablets Orally BID Active atorvastatin 40 mg oral tablet (20 sources) HMG-CoA Reductase Inhibitor Start: 02-01-2025 take 1 tablet by mouth once daily at bedtime Atorvastatin 40 mg tablet Active 40 MG PO Daily at bedtime February 01, 2025 12:00am Complies with drug therapy Start: 08-27-2024 End: 02-01-2025 take 1 tablet by mouth at bedtime Atorvastatin 40 mg tablet Discontinued 0 .ROUTE .COMPLEX 90 August 27, 2024 11:13am February 01, 2025 12:19pm TAKE 1 TABLET BY MOUTH AT BEDTIME Start: 04-17-2024 End: 08-27-2024 take 1 tablet by mouth once daily Atorvastatin 40 mg tablet Discontinued 40 MG PO Daily April 17, 2024 10:48am August 27, 2024 11:14am Start: 02-20-2024 End: 02-19-2025 take 1 tablet by mouth once daily at bedtime atorvastatin (Lipitor) 20 mg tablet Indications: CAD, multiple vessel , Mixed hyperlipidemia Take 1 tablet (20 mg) by mouth once daily at bedtime. 90 tablet 3 02/20/2024 11/13/2024 Discontinued (Dose adjustment) Start: 02-20-2024 End: 04-17-2024 take 1 tablet by mouth at bedtime Atorvastatin 40 mg tablet Discontinued 0 .ROUTE .COMPLEX 90 February 20, 2024 11:08am April 17, 2024 10:48am TAKE 1 TABLET BY MOUTH AT BEDTIME Start: 02-20-2024 take 1 tablet by amy th at bedtime Atorvastatin Active 0 .ROUTE .COMPLEX 90 February 20, 2024 11:08am TAKE 1 TABLET BY MOUTH AT BEDTIME Start: 01-03-2024 End: 02-20-2024 take 2 tablets by mouth once daily Atorvastatin 20 mg tablet Discontinued 40 MG PO Daily January 03, 2024 9:25am February 20, 2024 11:08am Start: 01-03-2024 End: 02-20-2024 take 40 mg by mouth once daily Atorvastatin Discontinu ed 40 MG PO Daily January 03, 2024 9:25am February 20, 2024 11:08am Start: 01-03-2024 End: 01-03-2024 take 1 tablet by mouth once daily Atorvastatin 20 mg tablet Discontinued 20 MG PO Daily January 03, 2024 12:00am January 03, 2024 9:25am Start: 10-06-2023 End: 01-03-2024 take 1 tablet by mouth once daily at bedtime Atorvastatin 40 mg tablet Discontinued 40 MG PO Daily at bedtime 90 90 October 06, 2023 12:00am January 03, 2024 8:42am Start: 10-16-2018 End: 10-06-2023 take 1 tablet by mouth once daily at bedtime Atorvastatin 20 mg tablet Discontinued 20 MG PO Daily at bedtime February 20, 2020 12:00am October 06, 2023 11:41am [employer] Body 500-32.5 MG (9 sources) take 2 tablets by mouth twice daily Sue Back [employer] Body 500-32.5 MG 2 tablets Orally BID Active Blood Glucose System Pratik JAROD (2 sources) Start: 11-20-2014 Blood Glucose System Pratik JAROD as directed DX: 250.00 BID prn Nov, Active Blood Glucose Test accucheck (20 sources) Start: 07-08-2015 Blood Glucose Test accucheck as directed DX: E11.9 once daily Jun, Active carvedilol 3.125 mg oral tablet (20 sources) alpha-Adrenergic Scar, beta-Adrenergic Scar Start: 06-04-2019 carvedilol 3.125 mg, Refills(s) 0 Start Date: 06/04/19 Status: Ordered Start: 04-06-2017 End: 02-19-2025 take 1 tablet by mouth twice daily Carvedilol 3.125 mg tablet Active 3.125 MG PO Twice daily October 06, 2023 11:28am Complies with drug therapy clopidogrel 75 mg oral tablet (20 sources) [id number] Platelet Inhibitor Start: 02-09-2025 take 1 tablet by mouth once daily Clopidogrel 75 mg Tablet Active 75 MG PO Daily 90 February 09, 2025 12:00am Complies with drug therapy Start: 04-06-2017 End: 05-13-2020 take 1 tablet by mouth once daily Clopidogrel 75 mg Tablet Discontinued 1 TAB PO Daily April 06, 2017 1:00am May 13, 2020 1:14pm Eye Vitamins - (20 sources) Eye Vitamins - a s directed Orally Active 24 hr isosorbide mononitrate 60 mg extended release oral tablet (20 sources) Nitrate Vasodilator Start: take 1 tablet by mouth every twenty-four hours in the morning isosorbide mononitrate ER (Imdur) 60 mg 24 hr tablet Take 1 tablet (60 mg) by mouth early in the morning.. 10/23/2024 Active Start: 07-23-2024 End: 02-01-2025 take 1 tablet by mouth once daily, then take 1 tablet by mouth every twenty-four hours Isosorbide Mononitrate 60 mg tablet extended release 24 hr Discontinued 60 MG PO Daily July 26, 2024 9:44am February 01, 2025 12:19pm Start: 07-19-2024 End: 07-23-2024 take 1 tablet by mouth once, then take 1 tablet by mouth every twenty-four hours Isosorbide Mononitrate 30 mg tablet extended release 24 hr Discontinued 30 MG PO Once July 19, 2024 1:00am July 23, 2024 11:05am Start: 06-05-2024 End: 07-19-2024 take 1 tablet by mouth once daily, then take 1 tablet by mouth every twenty-four hours Isosorbide Mononitrate 60 mg tablet extended release 24 hr Discontinued 60 MG PO Daily 90 June 05, 2024 1:00am July 19, 2024 9:51am Start: 06-04-2024 End: 06-05-2024 take 2 tablets by mouth once daily Isosorbide Mononitrate 30 mg tablet extended release 24 hr Discontinued 0 .ROUTE .COMPLEX June 04, 2024 9:07am June 05, 2024 12:38pm TAKE 2 TABLETS BY MOUTH DAILY Start: 06-04-2024 End: 06-05-2024 take 2 tablets by mouth once daily Isosorbide Mononitrate 30 mg tablet extended release 24 hr Discontinued 0 .ROUTE .COMPLEX June 04, 2024 9:07am June 05, 2024 12:38pm TAKE 2 TABLETS BY MOUTH DAILY Start: 06-04-2024 End: 06-05-2024 take 2 tablets by mouth once daily Isosorbide Mononitrate 30 mg tablet extended release 24 hr Discontinued 0 .ROUTE .COMPLEX June 04, 2024 8:07am June 05, 2024 11:38am TAKE 2 TABLETS BY MOUTH DAILY Start: 11-30-2023 End: 06-04-2024 Isosorbide Mononitrate 30 mg tablet extended release 24 hr Discontinued 60 MG PO Daily January 03, 2024 9:24am April 30, 2024 12:06pm Start: 11-30-2023 End: 01-03-2024 take 1 tablet by mouth once daily, then take 1 tablet by mouth every twenty-four hours Isosorbide Mononitrate 30 mg tablet extended release 24 hr Discontinued 30 MG PO Daily January 03, 2024 12:00am January 03, 2024 9:25am Start: 09-19-2023 End: 01-03-2024 take 1 tablet by mouth once daily in the morning, then take 1 tablet by mouth every twenty-four hours Isosorbide Mononitrate 60 mg tablet extended release 24 hr Discontinued 60 MG PO Every morning October 06, 2023 11:40am January 03, 2024 8:43am Start: 04-06-2017 End: 09-19-2023 take 1 tablet by mouth once daily in the morning, then take 1 tablet by mouth every twenty-four hours Isosorbide Mononitrate 30 mg Tablet Extended Release 24 Hr Discontinued 30 MG PO Every morning April 06, 2017 1:00am September 19, 2023 2:33pm Isosorbide Dinitrate (1 source) Nitrate Vasodilator Start: 06-04-2019 isosorbide dinitrate 30 mg, Refills(s) 0 Start Date: 06/04/19 Status: Ordered levothyroxine sodium 0.05 mg oral capsule (20 sources) l-Thyroxine Start: 07-11-2023 take 1 capsule by mouth once daily in the morning Levothyroxine 50 mcg capsule Active 50 MCG PO Every morning July 11, 2023 1:00am Complies with drug therapy Start: 10-16-2020 End: 11-13-2024 take 1 tablet by mouth once daily before mealtime levothyroxine (Synthroid, Levoxyl) 50 mcg tablet Take 1 tablet (50 mcg) by mouth once daily in the morning. Take before meals. 06/08/2022 11/13/2024 Discontinued (Therapy completed) Start: 10-16-2020 take 1 tablet by amy th once daily in the morning Levothyroxine Sodium 50 MCG 1 tablet in the morning on an empty stomach Orally Once a day Oct, Active lisinopril 5 mg oral tablet (20 sources) Angiotensin Converting Enzyme Inhibitor Start: 02-27-2024 End: 02-26-2025 take 1 tablet by mouth once daily in the morning Lisinopril 5 mg tablet Active 5 MG PO Every morning July 19, 2024 1:00am Complies with drug therapy Start: 01-03-2024 End: 07-19-2024 take 1 tablet by mouth once daily Lisinopril 2.5 mg tablet Discontinued 2.5 MG PO Daily January 03, 2024 12:00am July 19, 2024 9:51am Start: 02-21-2021 End: 01-03-2024 take 1 tablet by mouth once daily in the evening Lisinopril 5 mg tablet Discontinued 5 MG PO Every evening July 11, 2023 1:00am January 03, 2024 8:44am Start: 10-20-2020 take 1 tablet by amy th once daily Lisinopril 2.5 MG Oral Tablet TAKE 1 TABLET DAILY. Quantity: 90 Refills: 3 Ordered: 10-Feb-2022 Mayra Person MD Start : 21-Feb-2021 Active correct dose is 2.5 mg daily. Please fill 2.5 mg Start: 04-06-2017 End: 05-13-2020 take 1 tablet by mouth once daily Lisinopril 2.5 mg Tablet Discontinued 2.5 MG PO Daily April 06, 2017 1:00am May 13, 2020 1:14pm magnesium chloride 598 mg delayed release oral tablet (20 sources) Start: 02-01-2025 take 1 tablet by mouth twice daily Magnesium Chloride (Slow-Mag) 71.5 mg tablet,delayed release (DR/EC) Active 71.5 MG PO Twice daily February 01, 2025 12:00am Complies with drug therapy Start: 01-18-2024 End: 02-01-2025 take 1 tablet by mouth once daily Magnesium Chloride (Slow-Mag) 71.5 mg tablet,delayed release (DR/EC) Discontinued 71.5 MG PO Daily January 18, 2024 12:00am February 01, 2025 12:19pm metFORMIN hydrochloride 500 mg oral tablet (20 sources) Biguanide Start: 02-09-2025 take 1 tablet by mouth twice daily Metformin 500 mg tablet Active 500 MG PO Twice daily 0 300 February 09, 2025 2:31pm Complies with drug therapy Start: 01-03-2024 End: 02-09-2025 take 1 tablet by mouth once daily in the morning Metformin 500 mg tablet Discontinued 500 MG PO Every morning February 01, 2025 12:00am February 09, 2025 2:31pm Start: 10-04-2023 End: 01-03-2024 take 1 tablet by mouth twice daily Metformin 500 mg tablet Discontinued 500 MG PO Twice daily October 04, 2023 9:57am January 03, 2024 8:47am Start: 07-12-2023 End: 10-04-2023 Metformin (Glucophage) 1,000 mg tablet Discontinued 500 MG PO Every morning July 12, 2023 10:40am October 04, 2023 9:23am Start: 07-11-2023 End: 07-12-2023 Metformin (Glucophage) 1,000 mg tablet Discontinued 500 MG PO Twice daily July 11, 2023 10:57am July 12, 2023 10:43am Start: 11-17-2022 take 1 tablet by amy th every twenty-four hours metFORMIN HCl 500 MG 1 tablet with a meal Orally Once a day Nov, Active Start: 04-06-2017 End: 09-13-2023 take 1 tablet by mouth twice daily Metformin (Glucophage) 1,000 mg Tablet Discontinued 1000 MG PO Twice daily April 06, 2017 1:00am July 11, 2023 10:59am take 0.5 tablet by m out twice daily Glucophage 1000 MG 1/2 tablet with a meal Orally Twice a day Active take 1 tablet by amy th once daily metFORMIN HCl - 1000 MG Oral Tablet TAKE 1 TABLET EVERY 12 HOURS DAILY. Quantity: 0 Refills: 0 Ordered: 19-Feb-2021 DO Active methylPREDNISolone 4 mg oral tablet (1 source) Corticosteroid Start: 12-21-2022 Medrol 4 MG as directed Orally Dec, Active multivit with min-folic acid 0.4 mg tablet (2 sources) Start: 07-12-2023 End: 11-13-2024 take 1 capsule by mouth once daily multivit with min-folic acid 0.4 mg tablet Take 1 capsule by mouth once daily. 07/12/2023 11/13/2024 Discontinued (Therapy completed) Start: 07-12-2023 take 1 capsule by mo [facility] once daily multivit with min-folic acid 0.4 mg tablet Take 1 capsule by mouth once daily. 07/12/2023 Active Multivitamin preparation (20 sources) Start: 07-12-2023 take 1 tablet by mouth once daily Multivitamin Active 1 TAB PO Daily July 12, 2023 1:00am take 1 tablet by mouth once shanda y Multivitamin - 1 tablet Orally Once a day Active Multivitamin tablet (15 sources) Start: 07-12-2023 take 1 tablet by mouth once daily in the morning Multivitamin tablet Active 1 TAB PO Every morning July 12, 2023 1:00am Complies with drug therapy Start: 07-12-2023 take 1 tablet by amy once daily in the morning Start: 07-12-2023 take 1 tablet by amy th once daily Multivitamin tablet Active 1 TAB PO Daily July 12, 2023 1:00am Complies with drug therapy Start: 07-12-2023 take 1 tablet by amy th once daily Multivitamin tablet Active 1 TAB PO Daily July 12, 2023 1:00am Start: 07-12-2023 take 1 tablet by amy th once daily Multivitamin tablet Active 1 TAB PO Daily July 12, 2023 12:00am nitroglycerin 0.4 mg sublingual tablet (20 sources) Nitrate Vasodilator Start: 04-06-2017 End: 10-06-2023 Nitroglycerin (Nitrostat) 0.4 mg tablet, sublingual Active 0.4 MG SUBLINGUAL every 5 to 15 minutes as needed for Chest Pain October 06, 2023 11:40am Complies with drug therapy Nitroglycerin 0. 4 MG 1 tablet under the tongue Sublingual PRN PRN Active One A Day Men 50 Plus (1 source) Start: 12-25-2020 One A Day Men 50 Plus Refill(s) 0 Start Date: 12/25/20 Status: Ordered PreserVision AREDS 2 (1 source) Start: 12-25-2020 PreserVision A REDS 2 Refill(s) 0 Start Date: 12/25/20 Status: Ordered 12 hr ranolazine 500 mg extended release oral tablet (17 sources) Anti-anginal Start: 06-11-2024 take 1 tablet by mouth twice daily Ranolazine 500 mg tablet extended release 12 hr Active 500 MG PO Twice daily June 12, 2024 1:00am Complies with drug therapy SITagliptin 100 mg oral tablet (3 sources) Dipeptidyl Peptidase 4 Inhibitor Start: 05-26-2023 take 1 tablet by mouth every twenty-four hours Januvia 100 MG 1 tablet Orally Once a day for 90 days May, Active vit A/vit C/vit E/zinc/copper (PRESERVISION AREDS ORAL) (1 source) take 1 tablet by mouth in the morning vit A/vit C/vit E/zinc/copper (PRESERVISION AREDS ORAL) Take 1 tablet by mouth early in the morning.. Active Vit B Comp and C-Vit E-FA-Briana-Zn 0.4 mg tab (2 sources) Start: 07-12-2023 take 1 tablet by mouth once daily Vit B Comp and C-Vit E-FA-Briana-Zn 0.4 mg tab Take 1 capsule by mouth once daily. 07/12/2023 Active Vit C,T-Wj-Kkodb-Lutein -Zeaxan (Preservision Areds-2) 250-90-40-1 mg capsule (20 sources) Start: 07-29-2023 Start: 07-29-2023 Vit C,E-Zn-Document Analyst tl-Mijgwc-Virkcr (Preservision Areds-2) 250-90-40-1 mg capsule Active 1 TAB PO Every morning July 29, 2023 12:00am Complies with drug therapy Start: 07-29-2023 Vit C,E-Zn-Document Analyst zf-Baxvag-Tmyevf (Preservision Areds-2) 250-90-40-1 mg capsule Active 1 TAB PO Every morning July 28, 2023 11:00pm Start: 07-29-2023 Vit C,E-Zn-Document Analyst no-Nlrmss-Dmtugs (Preservision Areds-2) 250-90-40-1 mg capsule Active 1 TAB PO Every morning July 29, 2023 12:00am Completed/Discontinued Medications Medication Drug Class(es) Dates Sig (Normalized) Sig (Original) acetaminophen 325 mg / HYDROcodone bitartrate 5 mg oral tablet (20 sources) Opioid Agonist Start: 02-20-2020 End: 04-28-2020 take 1 tablet by mouth every six hours as needed for pain Hydrocodone-Acetam inophen ([place]) 5-325 mg tablet Discontinued 1 TAB PO Q6H as needed for pain 12 February 20, 2020 April 28, 2020 6:34pm apixaban 5 mg oral tablet (20 sources) Factor Xa Inhibitor Start: 05-13-2020 End: 07-12-2023 take 1 tablet by mouth twice daily Apixaban (Eliquis) 5 mg Tablet Discontinued 5 MG PO Twice daily 120 90 May 13, 2020 1:00am July 12, 2023 10:38am ascorbic acid 500 mg oral tablet (20 sources) Vitamin C Start: 05-13-2020 End: 07-12-2023 take 1 tablet by mouth twice daily Ascorbic Acid (Vitamin C) (Vitamin C) 500 mg Tablet Discontinued 500 MG PO Twice daily 60 May 13, 2020 1:00am July 12, 2023 10:39am take 1 tablet by mouth once shanda y Vitamin C 500 MG Oral Tablet TAKE 1 TABLET DAILY. Quantity: 0 Refills: 0 Ordered: 19-Feb-2021 DO Active betamethasone 0.5 mg/ml / clotrimazole 10 mg/ml topical cream (20 sources) Azole Antifungal, Corticosteroid Start: 01-03-2024 End: 01-17-2024 Clotrimazole-Betamethasone 1-0.05 % cream Discontinued 1 APPLIC TOPICAL Twice daily January 03, 2024 12:00am January 17, 2024 6:05pm clotrimazole 10 mg/ml topical cream (20 sources) Azole Antifungal Start: 05-31-2022 End: 07-12-2023 Clotrimazole 1 % cream Discontinued 1 APPLIC TOPICAL Twice daily 30 May 31, 2022 1:00am July 12, 2023 10:39am Clotrimazole 1 % External Solution APPLY AND GENTLY MASSAGE INTO AFFECTED AREA(S) TWICE DAILY. Quantity: 0 Refills: 0 Ordered: 06-Aug-2022 DO Active Clotrimazole 1 % 1 application Externally Twice a day Active diclofenac sodium 0.01 mg/mg topical gel (20 sources) Nonsteroidal Anti-inflammatory Drug Start: 08-31-2023 End: 09-17-2023 Diclofenac Sodium (Voltaren Arthritis Pain) 1 % gel Discontinued 4 GM TOPICAL Four times daily as needed for pain 100 August 31, 2023 12:00am September 17, 2023 6:35pm apply to the right hip up to four times daily as needed Start: 08-31-2023 End: 09-17-2023 Diclofenac Sodium (Voltaren Arthritis Pain) 1 % gel Discontinued 4 GM TOPICAL Four times daily as needed for pain 100 August 31, 2023 12:00am September 17, 2023 6:35pm apply to the right hip up to four times daily as needed Start: 08-31-2023 End: 09-17-2023 Diclofenac Sodium (Voltaren Arthritis Pain) 1 % gel Discontinued 4 GM TOPICAL Four times daily as needed for pain 100 August 30, 2023 11:00pm September 17, 2023 5:35pm apply to the right hip up to four times daily as needed Start: 08-31-2023 End: 09-17-2023 Diclofenac Sodium (Voltaren Arthritis Pain) 1 % gel Discontinued 4 GM TOPICAL Four times daily 100 August 31, 2023 12:00am September 17, 2023 6:35pm apply to the right hip up to four times daily as needed Start: 08-31-2023 Diclofenac Sod ium (Voltaren Arthritis Pain) 1 % gel Active 4 GM TOPICAL Four times daily 100 August 31, 2023 12:00am apply to the right hip up to four times daily as needed glipiZIDE er 5 mg 24 hr extended release oral tablet (20 sources) Sulfonylurea Start: 06-04-2019 take 5 mg by mouth once daily glipiZIDE 5 mg, Oral, Daily, Refills(s) 0 Start Date: 06/04/19 Status: Ordered Start: 02-10-2018 End: 12-03-2024 take 1 tablet by mouth once daily in the evening Glipizide 5 mg tablet extended release 24hr Discontinued 5 MG PO Every evening December 26, 2023 2:53pm December 03, 2024 11:49am Start: 04-06-2017 End: 05-13-2020 take 1 tablet by mouth twice daily Glipizide 5 mg Tablet Extended Release 24 Hr Discontinued 5 MG PO Twice daily April 06, 2017 1:00am May 13, 2020 1:14pm take 1 tablet by amy th twice daily glipiZIDE 5 MG Oral Tablet TAKE 1 TABLET TWICE DAILY. Quantity: 0 Refills: 0 Ordered: 19-Feb-2021 DO Active montelukast 10 mg oral tablet (20 sources) Leukotriene Receptor Antagonist Start: 04-06-2017 End: 12-03-2024 take 1 tablet by mouth once daily in the evening Montelukast (Singulair) 10 mg tablet Discontinued 10 MG PO Every evening January 03, 2024 8:58am December 03, 2024 11:49am Multi For Him 50+ - (6 sources) Multi For Him 50 + - as directed Orally Not-Taking Multi For Him 50 + - as directed Orally Active Multi Vitamin Oral Tablet (2 sources) take 1 tablet by mouth once daily Multi Vitamin Oral Tablet TAKE 1 TABLET DAILY. Quantity: 0 Refills: 0 Ordered: 10-Feb-2022 DO Active naproxen sodium 220 mg oral tablet (20 sources) Nonsteroidal Anti-inflammatory Drug Start: 04-06-20 End: 02-20-20 take 1 tablet by mouth once daily as needed for pain Naproxen Sodium (Aleve) 220 mg Tablet Discontinued 1 TAB PO Daily as needed for Pain April 06, 2017 1:00am February 20, 2020 11:45am oxyCODONE hydrochloride 5 mg oral tablet (20 sources) Opioid Agonist Start: 04-14-20 End: 02-20-20 take 1 tablet by mouth every six hours as needed for pain Oxycodone 5 mg tablet Discontinued 5 MG PO Q6H as needed for pain April 14, 2017 1:00am February 20, 2020 11:45am potassium gluconate 2.5 meq oral tablet (20 sources) Start: 01-03-20 End: 01-17-20 take 1 tablet by mouth once daily Potassium Gluconate 595 mg (99 mg) tablet Discontinued 595 MG PO Daily January 03, 2024 12:00am January 17, 2024 6:12pm Start: 04-06-2017 End: 09-19-2023 take 1 tablet by mouth once daily as needed Potassium Gluconate 550 mg (90 mg) Tablet Discontinued 1 TAB PO Daily as needed for Hypokalemia April 06, 2017 1:00am September 19, 2023 2:33pm take 1 tablet by amy th once daily as needed Potassium Gluconate 550 MG 1 tablet Orally Once a day prn Not-Taking take 1 tablet by amy th once daily as needed Potassium Gluconate 550 MG 1 tablet Orally Once a day prn Active simvastatin 40 mg oral tablet (20 sources) HMG-CoA Reductase Inhibitor Start: 04-06-2017 End: 04-28-2020 take 1 tablet by mouth once daily in the evening Simvastatin 40 mg Tablet Discontinued 40 MG PO Every evening April 06, 2017 1:00am April 28, 2020 6:34pm tamsulosin hydrochloride 0.4 mg oral capsule (6 sources) alpha-Adrenergic Scar take 1 capsule by mouth every twenty-four hours Tamsulosin HCl 0.4 MG 1 capsule Orally Once a day Not-Taking Toradol 30 mg/ml (20 sources) Start: 01-18-2023 Toradol 30 mg/ ml Jan, 60 mg Start: 12-21-2022 Toradol 30 mg/ ml Dec, 60 mg Triamcinolone (20 sources) Corticosteroid Start: 01-01-2019 Kenalog -40 mg Dec, 40 mg zinc sulfate 220 mg oral capsule (20 sources) Start: 05-13-2020 End: 07-12-2023 take 1 capsule by mouth once daily Zinc Sulfate (Orazinc) 220 (50) mg Capsule Discontinued 220 MG PO Daily May 13, 2020 1:00am July 12, 2023 10:41am Problems Active Problems Problem Classification Problem Date Documented Date Episodic/Chronic Acute myocardial infarction (20 sources) Myocardial infarction; Translations: [ST elevation (STEMI) myocardial infarction of unspecified site] 02-26-2025 Chronic Administrative/social admission (13 sources) Counseling procedure with explicit context; Translations: [Vaccine counseling] Episodic Allergic reactions (20 sources) Inflammatory dermatosis; Translations: [Dermatitis, unspecified] 05-31-2022 Episodic Aortic; peripheral; and visceral artery aneurysms (20 sources) Abdominal aortic aneurysm; Translations: [Abdominal aneurysm without mention of rupture] Onset: 2 Resolved: 2 Chronic Asthma (20 sources) Asthma; Translations: [Other asthma] Onset: 2 Resolved: 2 Chronic Biliary tract disease (2 sources) Calculus of gallbladder with cholecystitis; Translations: [Calculus of gallbladder with chronic cholecystitis without obstruction] Episodic Chronic kidney disease (20 sources) Chronic kidney disease stage 3; Translations: [Stage 3 chronic kidney disease] 09-19-2023 Chronic Chronic kidney disease (1 source) Chronic kidney disease; Translations: [Chronic kidney disease, stage 3 unspecified] Onset: 5 Conditions associated with dizziness or vertigo (13 sources) Lightheadedness; Translations: [Dizziness and giddiness] Episodic Coronary atherosclerosis and other heart disease (20 sources) Multi vessel coronary artery disease; Translations: [Coronary atherosclerosis of unspecified type of vessel, [place] or graft] Onset: 2 Resolved: 2 Chronic Comment on above: chest pain Deficiency and other anemia (20 sources) Pancytopenia; Translations: [Other pancytopenia] 05-01-2020 Chronic Deficiency and other anemia (20 sources) Anemia; Translations: [Anemia, unspecified] Episodic Deficiency and other anemia (2 sources) Anemia, unspecified Episodic Delirium, dementia, and amnestic and other cognitive disorders (2 sources) Old-age; Translations: [Age-related physical debility] Onset: 5 06-11-2024 Chronic Diabetes mellitus with complications (5 sources) Type 2 diabetes mellitus; Translations: [Type 2 diabetes mellitus with other specified complication] Onset: 3 09-13-2023 Chronic Diabetes mellitus without complication (20 sources) Diabetes mellitus; Translations: [Diabetes mellitus without mention of complication, type II or unspecified type, not stated as uncontrolled] Onset: 1 Resolved: 2 Chronic Comment on above: type 2 Disorders of lipid metabolism (20 sources) Hyperlipidemia; Translations: [Other and unspecified hyperlipidemia] Onset: 2 Resolved: 2 Chronic Essential hypertension (20 sources) Hypertensive disorder; Translations: [Unspecified essential hypertension] Onset: 2 Resolved: 2 Chronic Fluid and electrolyte disorders (20 sources) Dehydration; Translations: [Dehydration] Onset: 5 04-28-2020 Episodic Genitourinary symptoms and ill-defined conditions (16 sources) Urinary incontinence; Translations: [Unspecified urinary incontinence] Onset: 2 Chronic Genitourinary symptoms and ill-defined conditions (3 sources) Delay when starting to pass urine; Translations: [Incomplete emptying of bladder] 06-14-2019 Episodic Heart valve disorders (4 sources) Aortic valve regurgitation; Translations: [Nonrheumatic aortic (valve) insufficiency] Onset: 5 11-13-2024 Chronic Hyperplasia of prostate (20 sources) Benign prostatic hyperplasia; Translations: [Benign prostatic hyperplasia without lower urinary tract symptoms] Onset: 2 Chronic Immunizations and screening for infectious disease (13 sources) Needs influenza immunization; Translations: [Encounter for immunization] Episodic Malaise and fatigue (10 sources) Other fatigue; Translations: [Asthenia] Onset: 2 Resolved: 2 Episodic Mycoses (1 source) Tinea cruris Episodic Nonspecific chest pain (20 sources) Chest pain; Translations: [Chest pain, unspecified] 09-17-2023 Episodic Osteoarthritis (20 sources) Arthritis of right acromioclavicular joint; Translations: [Primary osteoarthritis, right shoulder] Chronic Other circulatory disease (1 source) Raynaud's phenomenon; Translations: [Raynaud's syndrome without gangrene] Chronic Other circulatory disease (1 source) Raynaud's syndrome without gangrene Chronic Other connective tissue disease (2 sources) Pain in right leg Episodic Other connective tissue disease (20 sources) Bursitis of hip; Translations: [Trochanteric bursitis, unspecified hip] 08-31-2023 Episodic Other connective tissue disease (20 sources) Trochanteric bursitis, unspecified hip; Translations: [Enthesopathy of hip region] 08-31-2023 Episodic Other connective tissue disease (5 sources) Other symptoms and signs involving the musculoskeletal system; Translations: [Other musculoskeletal symptoms referable to limbs] 07-04-2024 Episodic Other connective tissue disease (3 sources) Spasm of right piriformis muscle; Translations: [Other muscle spasm] 07-09-2024 Episodic Other diseases of kidney and ureters (20 sources) Renal impairment; Translations: [Disorder of kidney and ureter, unspecified] Episodic Other liver diseases (2 sources) Abnormal levels of other serum enzymes Episodic Other lower respiratory disease (3 sources) Dyspnea, unspecified; Translations: [Dyspnea, unspecified] Onset: 2 Episodic Other lower respiratory disease (16 sources) Dyspnea; Translations: [Other respiratory abnormalities] Onset: 3 02-24-2023 Episodic Other nervous system disorders (20 sources) Disorder of brain; Translations: [Encephalopathy, unspecified] 05-02-2020 Chronic Other nervous system disorders (20 sources) Chronic pain; Translations: [Other chronic pain] 08-26-2023 Chronic Other nervous system disorders (20 sources) Other chronic pain; Translations: [Other chronic pain] Onset: 5 Chronic Other non-traumatic joint disorders (20 sources) Pain in left shoulder; Translations: [Acute pain of left shoulder] Episodic Other non-traumatic joint disorders (1 source) Pain in right knee Episodic Other non-traumatic joint disorders (1 source) Pain in right hip Episodic Other nutritional; endocrine; and metabolic disorders (5 sources) Body mass index 25-29 - overweight; Translations: [Body Mass Index 27.0-27.9, adult] 10-20-2020 Episodic Other nutritional; endocrine; and metabolic disorders (3 sources) Overweight; Translations: [Overweight] Episodic Other nutritional; endocrine; and metabolic disorders (9 sources) Overweight in adulthood with body mass index of 25 or more but less than 30; Translations: [Body Mass Index 27.0-27.9, adult] Onset: 4 09-13-2023 Episodic Other screening for suspected conditions (not mental disorders or infectious disease) (20 sources) Raised TSH level; Translations: [Other specified abnormal findings of blood chemistry] Onset: 5 05-23-2019 Episodic Poisoning by nonmedicinal substances (20 sources) Bee sting; Translations: [Toxic effect of venom of bees, accidental (unintentional), initial encounter] 02-01-2024 Episodic Residual codes; unclassified (1 source) H/O: anticoagulant therapy 05-23-2019 Episodic Residual codes; unclassified (20 sources) Acute confusion; Translations: [Disorientation, unspecified] 04-28-2020 Episodic Screening and history of mental health and substance abuse codes (20 sources) Ex-smoker; Translations: [Personal history of tobacco use] Onset: 4 04-28-2020 Episodic Comment on above: Quit 1961; quit 1957 Spondylosis; intervertebral disc disorders; other back problems (15 sources) Degeneration of lumbar intervertebral disc; Translations: [Other intervertebral disc degeneration, lumbar region] Chronic Spondylosis; intervertebral disc disorders; other back problems (20 sources) Sacral radiculopathy; Translations: [Radiculopathy, sacral and sacrococcygeal region] Onset: 5 Episodic Superficial injury; contusion (20 sources) Contusion of chest; Translations: [Contusion of unspecified front wall of thorax, initial encounter] 02-20-2020 Episodic Thyroid disorders (20 sources) Hypothyroidism; Translations: [Hypothyroidism, unspecified] Onset: 2 Resolved: 2 Chronic Unclassified (2 sources) Abdominal aortic aneurysm, without rupture, unspecified; Translations: [Abdominal aortic aneurysm, without rupture, unspecified] Onset: 3 Unclassified (3 sources) You have been scheduled for a follow up appointment for the following date and time, please call to reschedule if needed. Viral infection (20 sources) COVID-19; Translations: [Pneumonia due to COVID-19 virus] 04-28-2020 Episodic Comment on above: 2019 Past or Other Problems Problem Classification Problem Date Documented Da te Episodic/Chronic Coronary atherosclerosis and other heart disease (2 sources) Coronary angioplasty status; Translations: [Coronary angioplasty status] Onset: 03-15-2024 Episodic Other nutritional; endocrine; and metabolic disorders (2 sources) Body mass index (BMI) 26.0-26.9, adult; Translations: [Body mass index (BMI) 26.0-26.9, adult] Onset: 03-15-2024 Episodic Phlebitis; thrombophlebitis and thromboembolism (20 sources) Deep venous thrombosis; Translations: [Acute venous embolism and thrombosis of unspecified deep vessels of lower extremity] Onset: 02-24-2023 02-24-2023 Episodic Unclassified (1 source) Abdominal aortic aneurysm (AAA) without rupture, unspecified part I71.40 Unclassified (2 sources) Infrarenal abdominal aortic aneurysm (AAA) without rupture I71.43 Unclassified (4 sources) Onset: 08-23-2023 Resolved: 03-15-2024 08-23-2023 Unclassified (1 source) Abdominal aortic aneurysm, without rupture, unspecified; Translations: [Abdominal aortic aneurysm, without rupture, unspecified] Onset: 11-13-2024 Results Test Name Value Interpretation Reference Range Facility A1C with Estimated Average G tejas 02-19-2025 Glucose [Mass/Vol] 151 mg/dL Normal [facility] Comment on above: Result Comment: PERF ORMED BY: [place] [address] PATHOLOGIST POLYMER CHEMIST ROSAIRO COWART M.D. Performed By: #### T SH3, A1C WTH eA, CBC, CMP, LIPID #### [facility] [address] [place] [address] [place] Alanine aminotransferase [En zymatic activity/volume] in Serum or PlasmaOrdered By: Justice Singh on 02-19-2025 ALT [Catalytic activity/Vol] 19 U/L 7-52 [facility] Comment on above: Performed By: #### T SH3, A1C WTH eA, CBC, CMP, LIPID #### [facility] [address] [place] [address] [place] Albumin [Mass/volume] in Ser um or Plasma by Bromocresol green (BCG) dye binding methoOrdered By: Justice Singh on 02-19-2025 Albumin BCG dye [Mass/Vol] 3.9 g/dL 3.5-5.7 [facility] Alkaline phosphatase [Enzyma tic activity/volume] in Serum or PlasmaOrdered By: Justice Singh on 02-19-2025 ALP [Catalytic activity/Vol] 87 U/L 34-104 [facility] Comment on above: Performed By: #### T SH3, A1C WTH eA, CBC, CMP, LIPID #### [facility] [address] [place] [address] Aspartate aminotransferase [ Enzymatic activity/volume] in Serum or PlasmaOrdered By: Justice Singh on 02-19-2025 AST [Catalytic activity/Vol] 18 U/L 13-39 [facility] Comment on above: Performed By: #### T SH3, A1C WTH eA, CBC, CMP, LIPID #### [address] Basophils [#/volume] in Bloo d by Automated countOrdered By: Justice Singh on 02-19-2025 Basophils (Bld) [#/Vol] 0.1 10*3/uL 0.0-0.2 [facility] Comment on above: Result Comment: PERF ORMED BY: [place] [address] PATHOLOGIST POLYMER CHEMIST ROSARIO COWART M.D. Performed By: #### T SH3, A1C WTH eA, CBC, CMP, LIPID #### [address] Basophils/100 leukocytes in Blood by Automated countOrdered By: Justice Singh on 02-19-2025 Basophils/100 WBC (Bld) 0.8 % . [facility] Comment on above: Performed By: #### T SH3, A1C WTH eA, CBC, CMP, LIPID #### [facility] [address] [place] [address] Bilirubin.total [Mass/volume ] in Serum or PlasmaOrdered By: Justice Singh on 02-19-2025 Bilirubin [Mass/Vol] 0.7 mg/dL 0.3-1.0 [facility] Comment on above: Performed By: #### T SH3, A1C WTH eA, CBC, CMP, LIPID #### [facility] [address] [place] [address] Blood estimated average gluc ose determination by estimation from glycated hemoglobinOrdered By: Justice Singh on 02-19-2025 Average glucose Estimated from glycated hemoglobin (Bld) [Mass/Vol] 151 mg/dL [facility] Calcium [Mass/volume] in Ser um or PlasmaOrdered By: Justice Singh on 02-19-2025 Calcium [Mass/Vol] 9.5 mg/dL 8.6-10.3 [facility] Comment on above: Performed By: #### T SH3, A1C WTH eA, CBC, CMP, LIPID #### [facility] [address] [place] [address] [place] Carbon dioxide, total [Moles /volume] in Serum or PlasmaOrdered By: Justice Singh on 02-19-2025 CO2 [Moles/Vol] 25.7 mmol/L 21.0-31.0 [facility] Comment on above: Performed By: #### T SH3, A1C WTH eA, CBC, CMP, LIPID #### [facility] [address] [place] [address] [place] Chloride [Moles/volume] in S albin or PlasmaOrdered By: Justice Singh on 02-19-2025 Chloride [Moles/Vol] 107 mmol/L 98-107 [facility] Comment on above: Performed By: #### T SH3, A1C WTH eA, CBC, CMP, LIPID #### [facility] [address] [place] [address] [place] Cholesterol [Mass/volume] in Serum or PlasmaOrdered By: Justice Singh on 02-19-2025 Cholesterol [Mass/Vol] 134 mg/dL Low 140-200 [facility] Comment on above: Chol less than 200 m g/dl low riskChol 201-239 mg/dl borderline riskChol 240 mg/dl and greater high risk Result Comment: Chol less than 200 mg/dl low risk Chol 201-239 mg/dl borderline risk Chol 240 mg/dl and greater high risk Performed By: #### T SH3, A1C WTH eA, CBC, CMP, LIPID #### [facility] [address] [place] [id number] [place] Cholesterol in HDL [Mass/vol ume] in Serum or PlasmaOrdered By: Justice Singh on 02-19-2025 Cholesterol in HDL [Mass/Vol] 48 mg/dL 23-92 [facility] Comment on above: HDL CHOL ATP-III CLA SSIFICATION Cardiovascular RiskHDL > or equal to 60 mg/dL LOWHDL < 40 mg/dL HIGH Result Comment: HDL CHOL ATP-III CLASSIFICATION Cardiovascular Risk HDL > or equal to 60 mg/dL LOW HDL < 40 mg/dL HIGH Performed By: #### T SH3, A1C WTH eA, CBC, CMP, LIPID #### [facility] [address] Cholesterol in LDL Calc [Mas s/Vol]Ordered By: Justice Singh on 02-19-2025 Cholesterol in LDL [Mass/Vol] 59 mg/dL 0-100 [facility] Comment on above: LDL ATP III CLASSIFI CATIONLDL less than 100 mg/dL OptimalLDL 100-129 mg/dL Near or above optimalLDL 130-159 mg/dL Borderline highLDL 160-189 mg/dL HighLDL greater than 189 mg/dL Very high Cholesterol in VLDL Calc [Ma ss/Vol]Ordered By: Justice Singh on 02-19-2025 Cholesterol in VLDL [Mass/Vol] 27 mg/dL [facility] Complete Blood Count Auto Di ffon 02-19-2025 Mean Corpuscular HGB Conc 33.9 g/dL Normal 32.5-35.6 [facility] Comment on above: Performed By: #### T SH3, A1C WTH eA, CBC, CMP, LIPID #### [facility] [address] NRBC% 0.1 /100{WBC} Normal 0-0.5 [facility] Comment on above: Performed By: #### T SH3, A1C WTH eA, CBC, CMP, LIPID #### [facility] [address] [place] [address] [facility] White Blood Count 8.8 [CFU]/mL Normal 4.1-10.5 [facility] Comment on above: Performed By: #### T SH3, A1C WTH eA, CBC, CMP, LIPID #### [facility] [address] [place] [address] [facility] Comprehensive Metabolic Pane jose 02-19-2025 Albumin [Mass/Vol] 3.9 g/dL Normal 3.5-5.7 [facility] Comment on above: Performed By: #### T SH3, A1C WTH eA, CBC, CMP, LIPID #### [facility] [address] [place] [address] [place] GFR/1.73 sq M.predicted MDRD (S/P/Bld) [Vol rate/Area] 45.224 mL/min/{1.73_m2} Normal [facility] Comment on above: Performed By: #### T SH3, A1C WTH eA, CBC, CMP, LIPID #### [facility] [address] [place] [address] [place] Creatinine [Mass/volume] in Serum or PlasmaOrdered By: Justice Singh on 02-19-2025 Creatinine [Mass/Vol] 1.48 mg/dL High 0.70-1.30 [facility] Comment on above: Performed By: #### T SH3, A1C WTH eA, CBC, CMP, LIPID #### [facility] [address] [place] [address] [place] Creatinine [Mass/volume] in UrineOrdered By: Justice Singh on 02-19-2025 Creatinine (U) [Mass/Vol] 71.00 mg/dL [facility] Comment on above: No reference range e stablished Eosinophils [#/volume] in Bl ood by Automated countOrdered By: Justice Singh on 02-19-2025 Eosinophils (Bld) [#/Vol] 0.1 10*3/uL 0.0-0.45 [facility] Comment on above: Performed By: #### T SH3, A1C WTH eA, CBC, CMP, LIPID #### [facility] [address] [place] [address] [place] Eosinophils/100 leukocytes i n Blood by Automated countOrdered By: Justice Singh on 02-19-2025 Eosinophils/100 WBC (Bld) 1.3 % . [facility] Comment on above: Performed By: #### T SH3, A1C WTH eA, CBC, CMP, LIPID #### [facility] [address] [place] [address] [place] Erythrocyte distribution wid th [Ratio] by Automated countOrdered By: Justice Singh on 02-19-2025 Erythrocyte distribution width (RBC) [Ratio] 13.3 % 12.0-14.8 [facility] Comment on above: Performed By: #### T SH3, A1C WTH eA, CBC, CMP, LIPID #### [facility] [address] Erythrocytes [#/volume] in B lood by Automated countOrdered By: Justice Singh on 02-19-2025 RBC (Bld) [#/Vol] 3.98 10*6/uL 3.90-5.60 [facility] Comment on above: Performed By: #### T SH3, A1C WTH eA, CBC, CMP, LIPID #### [facility] [address] Glomerular filtration rate [ Volume Rate/Area] in Serum, Plasma or Blood by CreatinineOrdered By: Justice Singh on 02-19-2025 Glomerular filtration rate [Volume Rate/Area] in Serum, Plasma or Blood by Creatinine 45.224 mL/Min [facility] Glucose [Mass/volume] in Ser um or PlasmaOrdered By: Justice Singh on 02-19-2025 Glucose [Mass/Vol] 99 mg/dL 70-100 [facility] Comment on above: ADA recommended refe rence rangeRandom Glucose Reference Range is dependent on time and content of last meal. Glucose of more than 200 mg/dL in a nonstressed, ambulatory subject supports the diagnosis of Diabetes Mellitus. Result Comment: [place] om Glucose Reference Range is dependent on time and content of last meal. Glucose of more than 200 mg/dL in a nonstressed, ambulatory subject supports the diagnosis of Diabetes Mellitus. ADA recommended reference range Performed By: #### T SH3, A1C WTH eA, CBC, CMP, LIPID #### [facility] [address] Hematocrit [Volume Fraction] of Blood by Automated countOrdered By: Justice Singh on 02-19-2025 Hematocrit (Bld) [Volume fraction] 38.2 % Low 38.8-50.0 [facility] Comment on above: Performed By: #### T SH3, A1C WTH eA, CBC, CMP, LIPID #### [facility] [address] Hemoglobin A1c/Hemoglobin.to henry in BloodOrdered By: Justice Singh on 02-19-2025 HbA1c (Bld) [Mass fraction] 6.9 % High 4.3-5.6 [facility] Comment on above: Increased risk for d iabetes: 5.7 - 6.4diabetes: >6.4glycemic control for adults with diabetes: <7.0 Result Comment: Incr eased risk for diabetes: 5.7 - 6.4 diabetes: >6.4 glycemic control for adults with diabetes: <7.0 Performed By: #### T SH3, A1C WTH eA, CBC, CMP, LIPID #### [facility] [address] Hemoglobin [Mass/volume] in BloodOrdered By: Justice Singh on 02-19-2025 Hemoglobin (Bld) [Mass/Vol] 13.0 g/dL 13.0-17.0 [facility] Comment on above: Performed By: #### T SH3, A1C WTH eA, CBC, CMP, LIPID #### [facility] [address] Leukocytes [#/volume] correc yana for nucleated erythrocytes in Blood by Automated counOrdered By: Justice Singh on 02-19-2025 WBC corrected for nucl RBC Auto (Bld) [#/Vol] 8.8 10*3/uL 4.1-10.5 [facility] Leukocytes [#/volume] in Blo od by Automated countOrdered By: Justice Singh on 02-19-2025 WBC (Bld) [#/Vol] 8.8 10*3/uL 4.1-10.5 [facility] Comment on above: Performed By: #### T SH3, A1C WTH eA, CBC, CMP, LIPID #### [facility] [address] Lipid Panelon 02-19-2025 LDL Cholesterol,Calculated 59 mg/dL Normal 0-100 [facility] Comment on above: Result Comment: LDL ATP III CLASSIFICATION LDL less than 100 mg/dL Optimal LDL 100-129 mg/dL Near or above optimal LDL 130-159 mg/dL Borderline high LDL 160-189 mg/dL High LDL greater than 189 mg/dL Very high Performed By: #### T SH3, A1C WTH eA, CBC, CMP, LIPID #### [facility] [address] Triglyceride w/Reflex 137 mg/dL Normal 0-149 [facility] Comment on above: Result Comment: TRIG ATP III CLASSIFICATION TRIG less than 150 mg/dL Normal TRIG 150-199 mg/dL Borderline high TRIG 200-500 mg/dL High TRIG greater than 500 mg/dL Very high Standard traceable to the Center for Disease Conrtrol and Prevention (CDC) test method. Performed By: #### T SH3, A1C WTH eA, CBC, CMP, LIPID #### [address] VLDL CHOLESTEROL 27 mg/dL Normal [facility] Comment on above: Performed By: #### T SH3, A1C WTH eA, CBC, CMP, LIPID #### [address] Lymphocytes [#/volume] in Bl ood by Automated countOrdered By: Justice Singh on 02-19-2025 Lymphocytes (Bld) [#/Vol] 0.9 10*3/uL Low 1.00-4.8 [facility] Comment on above: Performed By: #### T SH3, A1C WTH eA, CBC, CMP, LIPID #### [place] [address] [place] Lymphocytes/100 leukocytes i n Blood by Automated countOrdered By: Justice Singh on 02-19-2025 Lymphocytes/100 WBC (Bld) 10.2 % . [facility] Comment on above: Performed By: #### T SH3, A1C WTH eA, CBC, CMP, LIPID #### [facility] [address] [place] [address] [place] MCH [Entitic mass] by Automa yana countOrdered By: Justice Singh on 02-19-2025 MCH (RBC) [Entitic mass] 32.6 pg 27.5-35.2 [facility] Comment on above: Performed By: #### T SH3, A1C WTH eA, CBC, CMP, LIPID #### [address] MCHC Auto (RBC) [Mass/Vol]Or dered By: Justice Singh on 02-19-2025 MCHC (RBC) [Mass/Vol] 33.9 g/dL 32.5-35.6 [facility] MCV [Entitic volume] by Auto mated countOrdered By: Justice Singh on 02-19-2025 MCV (RBC) [Entitic vol] 95.9 fL 83.5-101 [facility] Comment on above: Performed By: #### T SH3, A1C WTH eA, CBC, CMP, LIPID #### [address] MicroAlb Creat Ratio,Uon Creatinine, Urine (Random) 71.00 mg/dL Normal [facility] Comment on above: Result Comment: No r eference range established Performed By: #### T SH3, A1C WTH eA, CBC, CMP, LIPID #### [address] Microalbumin/Creatinin e Ratio 14.1 mg/g Normal 0.0-30.0 [facility] Comment on above: Result Comment: 30-3 00 mg/g indicates an increased risk for diabetic nephropathy. Greater than 300 mg/g is consistent with clinical nephropathy. (Am. J. Kidney Disease 1994, 25:107) PERFORMED BY: [place] [address] PATHOLOGIST POLYMER CHEMIST ROSARIO COWART M.D. Performed By: #### T SH3, A1C WTH eA, CBC, CMP, LIPID #### [address] Microalbumin [Mass/volume] i n UrineOrdered By: Justice Singh on 02-19-2025 Albumin DL <= 20 mg/L (U) [Mass/Vol] 1.0 mg/dL 0.0-1.8 [facility] Comment on above: Performed By: #### T SH3, A1C WTH eA, CBC, CMP, LIPID #### [facility] [address] [place] [address] [place] Monocytes [#/volume] in Bloo d by Automated countOrdered By: Justice Singh on 02-19-2025 Monocytes (Bld) [#/Vol] 0.7 10*3/uL 0.0-0.8 [facility] Comment on above: Performed By: #### T SH3, A1C WTH eA, CBC, CMP, LIPID #### [facility] [address] [place] [address] [place] Monocytes/100 leukocytes in Blood by Automated countOrdered By: Justice Singh on 02-19-2025 Monocytes/100 WBC (Bld) 8.1 % . [facility] Comment on above: Performed By: #### T SH3, A1C WTH eA, CBC, CMP, LIPID #### [facility] [address] [place] [address] [place] Neutrophils [#/volume] in Bl ood by Automated countOrdered By: Justice Singh on 02-19-2025 Neutrophils (Bld) [#/Vol] 7.0 10*3/uL 1.8-7.7 [facility] Comment on above: Performed By: #### T SH3, A1C WTH eA, CBC, CMP, LIPID #### [facility] [address] [place] [address] [place] Neutrophils/100 leukocytes i n Blood by Automated countOrdered By: Justice Singh on 02-19-2025 Neutrophils/100 WBC (Bld) 79.6 % . [facility] Comment on above: Performed By: #### T SH3, A1C WTH eA, CBC, CMP, LIPID #### [facility] [address] [place] [address] No Panel InformationOrdered By: Justice Singh on 02-19-2025 Pharmacy Creatinine Clearance (Chem N/A [facility] Nucleated erythrocytes [Pres ence] in Blood by Automated countOrdered By: Justice Singh on 02-19-2025 Nucleated RBC Auto Ql (Bld) 0.1 /100{WBC} 0-0.5 [facility] Platelet mean volume [Entiti c volume] in Blood by Automated countOrdered By: Justice Singh on 02-19-2025 Platelet mean volume (Bld) [Entitic vol] 8.5 fL 6.6-10.1 [facility] Comment on above: Performed By: #### T SH3, A1C WTH eA, CBC, CMP, LIPID #### [facility] [address] Platelets [#/volume] in Bloo d by Automated countOrdered By: Justice Singh on 02-19-2025 Platelets (Bld) [#/Vol] 238 10*3/uL 150-450 [facility] Comment on above: Performed By: #### T SH3, A1C WTH eA, CBC, CMP, LIPID #### [facility] [address] Potassium [Moles/volume] in Serum or PlasmaOrdered By: Justice Singh on 02-19-2025 Potassium [Moles/Vol] 4.5 mmol/L 3.5-5.1 [facility] Comment on above: Performed By: #### T SH3, A1C WTH eA, CBC, CMP, LIPID #### [facility] [address] [place] [address] Protein [Mass/volume] in Ser um or PlasmaOrdered By: Justice Singh on 02-19-2025 Protein [Mass/Vol] 6.5 g/dL 6.4-8.9 [facility] Comment on above: Performed By: #### T SH3, A1C WTH eA, CBC, CMP, LIPID #### [facility] [address] Serum globulin measurement b y calculation (mass/volume)Ordered By: Justice Singh on 02-19-2025 Globulin (S) [Mass/Vol] 2.6 g/dL [facility] Comment on above: Performed By: #### T SH3, A1C WTH eA, CBC, CMP, LIPID #### [facility] [address] Serum or plasma albumin/glob ulin mass ratioOrdered By: Justice Singh on 02-19-2025 Albumin/Globulin [Mass ratio] 1.5 {ratio} [facility] Comment on above: Performed By: #### T SH3, A1C WTH eA, CBC, CMP, LIPID #### [facility] [address] Serum or plasma anion gap de terminationOrdered By: Justice Singh on 02-19-2025 Anion gap [Moles/Vol] 11.8 mmol/L 6.0-15.0 [facility] Comment on above: Performed By: #### T SH3, A1C WTH eA, CBC, CMP, LIPID #### [address] Serum or plasma total choles terol/high density lipoprotein (HDL) cholesterol mass ratOrdered By: Justice Singh on 02-19-2025 Cholesterol.total/Chol esterol in HDL [Mass ratio] 2.8 {ratio} <5.0 [facility] Comment on above: Performed By: #### T SH3, A1C WTH eA, CBC, CMP, LIPID #### [address] Sodium [Moles/volume] in Ser um or PlasmaOrdered By: Justice Singh on 02-19-2025 Sodium [Moles/Vol] 140 mmol/L 136-145 [facility] Comment on above: Performed By: #### T SH3, A1C WTH eA, CBC, CMP, LIPID #### [address] Thyrotropin [Units/volume] i n Serum or PlasmaOrdered By: Justice Singh on 02-19-2025 TSH Qn 3.30 m[IU]/L 0.45-5.33 [facility] Comment on above: Result Comment: PERF ORMED BY: [place] [address] PATHOLOGIST POLYMER CHEMIST ROSARIO COWART M.D. Performed By: #### T SH3, A1C WTH eA, CBC, CMP, LIPID #### [address] [place] [address] [place] Triglyceride [Mass/volume] i n Serum or PlasmaOrdered By: Justice Singh on 02-19-2025 Triglyceride [Mass/Vol] 137 mg/dL 0-149 [facility] Comment on above: TRIG ATP III CLASSIF ICATIONTRIG less than 150 mg/dL NormalTRIG 150-199 mg/dL Borderline highTRIG 200-500 mg/dL High TRIG greater than 500 mg/dL Very highStandard traceable to the Center for Disease Conrtrol and Prevention (CDC) test method. Urea nitrogen [Mass/volume] in Serum or PlasmaOrdered By: Justice Singh on 02-19-2025 Urea nitrogen [Mass/Vol] 36 mg/dL High 7-25 [facility] Comment on above: Performed By: #### T SH3, A1C WTH eA, CBC, CMP, LIPID #### [facility] [address] Urine microalbumin/creatinin e mass ratioOrdered By: Justice Singh on 02-19-2025 Albumin/Creatinine DL <= 20 mg/L (U) [Mass ratio] 14.1 mg/g 0.0-30.0 [facility] Comment on above: 30-300 mg/g indicate s an increased risk for diabetic nephropathy. Greater than 300 mg/g is consistent with clinical nephropathy. (Am. J. Kidney Disease 1995, 25:107) Glucose Poct Glucometerson 0 02-09-2025 Commemt1 Glu2: Cleaned Meter Normal [facility] Comment on above: Result Comment: PERF ORMED BY: [place] [address] PATHOLOGIST POLYMER CHEMIST ROSARIO COWART M.D. Performed By: #### T SH3, A1C WTH eA, CBC, CMP, LIPID #### [address] Glucose [Mass/Vol] 280 mg/dL Normal [facility] Comment on above: Result Comment: [place] Glucose Reference Range is dependent on time and content of last meal. Glucose of more than 200 mg/dL in a nonstressed, ambulatory subject supports the diagnosis of Diabetes Mellitus. Performed By: #### T SH3, A1C WTH eA, CBC, CMP, LIPID #### [address] Glucose [Mass/Vol] 63 mg/dL Normal [facility] Comment on above: Result Comment: [facility] Glucose Reference Range is dependent on time and content of last meal. Glucose of more than 200 mg/dL in a nonstressed, ambulatory subject supports the diagnosis of Diabetes Mellitus. PERFORMED BY: [place] [address] PATHOLOGIST POLYMER CHEMIST ROSARIO COWART M.D. Performed By: #### T SH3, A1C WTH eA, CBC, CMP, LIPID #### [address] Basic Metabolic Panelon -2 Anion gap [Moles/Vol] 8.7 mmol/L Normal 6.0-15.0 [facility] Comment on above: Performed By: #### T SH3, A1C WTH eA, CBC, CMP, LIPID #### [address] Calcium [Mass/Vol] 8.7 mg/dL Normal 8.6-10.3 [facility] Comment on above: Performed By: #### T SH3, A1C WTH eA, CBC, CMP, LIPID #### [place] [address] [place] Chloride [Moles/Vol] 107 mmol/L Normal 98-107 [facility] Comment on above: Performed By: #### T SH3, A1C WTH eA, CBC, CMP, LIPID #### [address] CO2 [Moles/Vol] 23.9 mmol/L Normal 21.0-31.0 [facility] Comment on above: Performed By: #### T SH3, A1C WTH eA, CBC, CMP, LIPID #### [address] Creatinine [Mass/Vol] 1.49 mg/dL High 0.70-1.30 [facility] Comment on above: Performed By: #### T SH3, A1C WTH eA, CBC, CMP, LIPID #### [facility] [address] [place] [address] [place] Creatinine Clr Calc Pharmacy 34.27 Normal [facility] Comment on above: Result Comment: PERF ORMED BY: [place] [address] PATHOLOGIST POLYMER CHEMIST ROSARIO COWART M.D. Performed By: #### T SH3, A1C WTH eA, CBC, CMP, LIPID #### [facility] [address] [place] [address] [place] GFR/1.73 sq M.predicted MDRD (S/P/Bld) [Vol rate/Area] 44.860 mL/min/{1.73_m2} Normal [facility] Comment on above: Performed By: #### T SH3, A1C WTH eA, CBC, CMP, LIPID #### [facility] [address] [place] [address] [place] Glucose [Mass/Vol] 109 mg/dL High 70-100 [facility] Comment on above: Result Comment: [place] Glucose Reference Range is dependent on time and content of last meal. Glucose of more than 200 mg/dL in a nonstressed, ambulatory subject supports the diagnosis of Diabetes Mellitus. ADA recommended reference range Performed By: #### T SH3, A1C WTH eA, CBC, CMP, LIPID #### [facility] [address] [place] [address] [place] Potassium [Moles/Vol] 4.6 mmol/L Normal 3.5-5.1 [facility] Comment on above: Performed By: #### T SH3, A1C WTH eA, CBC, CMP, LIPID #### [facility] [address] [place] [address] [place] Sodium [Moles/Vol] 135 mmol/L Low 136-145 [facility] Comment on above: Performed By: #### T SH3, A1C WTH eA, CBC, CMP, LIPID #### [facility] [address] [place] [address] [place] Urea nitrogen [Mass/Vol] 30 mg/dL High 7-25 [facility] Comment on above: Performed By: #### T SH3, A1C WTH eA, CBC, CMP, LIPID #### [facility] [address] [place] [id number] [facility] echo transthoracicon [facility] echo transthoracic [facility] [place] [address] [place] [id number] Echocardiogram Signed Patient: Ever Mason MR#: [id number] : [id number] Acct:[id number] Age/Sex: 89 / M ADM Date: 02/06/25 Loc: Room: [address] [place] [address] Type: ADM IN Attending Dr: Jg Olvera MD Ordering Provider: Jg Olvera MD Date of Service: 02/07/25 [facility] echo transthoracic: mitral reg murmur Copies to: MD Winnie Velez MD RD, T BSA: 1.9 m2 BP: 109/69 mmHg HR: 61 Reason For Study: mitral reg murmur History: CAD DM AAA CKD DVT TN Interpretation Summary Ejection Fraction = 60-65%. Mild concentric left ventricular hypertrophy. No regional wall motion abnormalities noted. Mild aortic regurgitation. There is trace mitral regurgitation. There is trace tricuspid regurgitation. Compared to prior study, there is no significant change. Procedure/Quality: A two-dimensional transthoracic echocardiogram with color flow, Doppler and injection of contrast agent Definity was performed. The study was technically good in quality. Left Ventricle: Mild concentric left ventricular hypertrophy. The left ventricular size is normal. Ejection Fraction = 60-65%. Inadequate for diastolic assessment. No regional wall motion abnormalities noted. Left Atrium: The left atrium appears normal in size. Right Atrium: The right atrium appears normal in size. Right Ventricle: The right ventricle is normal in size and function. Aortic Valve: The aortic valve is normal in structure. No hemodynamically significant valvular aortic stenosis. Mild aortic regurgitation. Mitral Valve: The mitral valve is normal in structure. No significant mitral valve stenosis. There is trace mitral regurgitation. Tricuspid Valve: The tricuspid valve is normal in structure. There is trace tricuspid regurgitation. Pulmonic Valve: The pulmonic valve is not well visualized. Trace pulmonic valvular regurgitation. Arteries: The aortic root is normal size. Pericardium/Pleura: No pericardial effusion seen. IVC/Hepatic Veins: The inferior vena cava is normal in size, with a normal collapsibility index. Measurements with Normals IVSd: 1.2 cm (0.7-1.1 cm)LVIDd: 3.4 cm (3.7-5.4 cm) LVPWd: 1.3 cm (0.7-1.1 cm)LVIDs: 2.2 cm (2.3-3.6 cm) LA dimension: 3.9 cm (2.3-4.0 cm)Ao root diam: 3.3 cm(2.0-3.6 cm) asc Aorta Diam: 4.4 cm(2.1-3.4cm) Doppler with Normals RVSP(TR): 16.1 mmHg (18-35mmHg) LV V1 max: 114.0 cm/sec (0.7-1.7m/s)MV E max jayshree: 97.9 cm/sec(0.8-1.3m/s) MV A max jayshree: 118.0 cm/sec(0.0-0.0m/s) MV E/A: 0.83 (<1.5) MMode/2D Measurements Calculations TAPSE: 1.5 cm FS: 35.3 % Ao root area: LVOT diam: 2.1 cm RV S Jayshree: EDV(Teich): 47.4 ml 8.6 cm2 LVOT area: 3.5 cm2 15.3 cm/sec ESV(Teich): 16.2 ml EF(Teich): 65.8 % __ LVLd ap4: 8.8 cm SV(MOD-sp4): 60.6 ml LAV(MOD-sp4): LA A2 area: 15.6 cm2 EDV(MOD-sp4): 24.3 ml 99.5 ml LAV(MOD-sp2): LA A4 area: 12.5 cm2 LVLs ap4: 7.1 cm 41.9 ml LA length (vol): ESV(MOD-sp4): 5.1 cm 38.9 ml LA vol: 32.3 ml EF(MOD-sp4): LA vol index: 60.9 % 16.9 ml/m2 __ RA Volume: 38.8 mlRA Volume Index: 20.3 ml/m2 Doppler Measurements Calculations MV dec time: MV V2 max: Ao V2 max: LV V1 max P.29 sec 131.0 cm/sec 231.0 cm/sec 5.2 mmHg MV max PG: Ao max PG: LV V1 mean P.0 mmHg 21.3 mmHg 3.0 mmHg MV V2 mean: Ao mean PG: LV V1 mean: 61.2 cm/sec 11.0 mmHg 77.1 cm/sec MV mean PG: Ao V2 mean: LV V1 VTI: 27.6 cm 2.0 mmHg 155.0 cm/sec MV V2 VTI: 46.5 cm Ao V2 VTI: 52.6 cm MVA(VTI): 2.1 cm2 WILSON(I,D): 1.8 cm2 WILSON(V,D): 1.7 cm2 __ MR max jayshree: TV max PG: TR max jayshree: 508.5 cm/sec 13.0 mmHg 181.0 cm/sec MR max PG: TR max P.9 mmHg 13.1 mmHg RAP systole: 3.0 mmHg ___ Transcribed By: SCV Performed At: 02/08/25 0900 Signed By: Winnie Martin MD 02/08/25 1414 Normal [facility] Glucose Poct Glucometerson 0 02-08-2025 Glucose [Mass/Vol] 195 mg/dL Normal [facility] Comment on above: Result Comment: [place] Glucose Reference Range is dependent on time and content of last meal. Glucose of more than 200 mg/dL in a nonstressed, ambulatory subject supports the diagnosis of Diabetes Mellitus. PERFORMED BY: [facility] [place] [address] PATHOLOGIST POLYMER CHEMIST ROSARIO COWART M.D. Performed By: #### G LULS #### Point of Care testing , Glucose [Mass/Vol] 170 mg/dL Normal [facility] Comment on above: Result Comment: [place] om Glucose Reference Range is dependent on time and content of last meal. Glucose of more than 200 mg/dL in a nonstressed, ambulatory subject supports the diagnosis of Diabetes Mellitus. PERFORMED BY: [place] [address] PATHOLOGIST POLYMER CHEMIST ROSARIO COWART M.D. Performed By: #### T SH3, A1C WTH eA, CBC, CMP, LIPID #### [address] Glucose [Mass/Vol] 197 mg/dL Normal [facility] Comment on above: Result Comment: [place] om Glucose Reference Range is dependent on time and content of last meal. Glucose of more than 200 mg/dL in a nonstressed, ambulatory subject supports the diagnosis of Diabetes Mellitus. PERFORMED BY: [place] [address] PATHOLOGIST POLYMER CHEMIST ROSARIO COWART M.D. Performed By: #### T SH3, A1C WTH eA, CBC, CMP, LIPID #### [address] Glucose [Mass/Vol] 118 mg/dL Normal [facility] Comment on above: Result Comment: [place] om Glucose Reference Range is dependent on time and content of last meal. Glucose of more than 200 mg/dL in a nonstressed, ambulatory subject supports the diagnosis of Diabetes Mellitus. PERFORMED BY: [place] [address] PATHOLOGIST POLYMER CHEMIST ROSARIO COWART M.D. Performed By: #### T SH3, A1C WTH eA, CBC, CMP, LIPID #### [address] Glucose Poct Glucometerson 0 02-07-2025 Glucose [Mass/Vol] 152 mg/dL Normal [facility] Comment on above: Result Comment: [place] om Glucose Reference Range is dependent on time and content of last meal. Glucose of more than 200 mg/dL in a nonstressed, ambulatory subject supports the diagnosis of Diabetes Mellitus. PERFORMED BY: [place] [address] PATHOLOGIST POLYMER CHEMIST ROSARIO COWART M.D. Performed By: #### T SH3, A1C WTH eA, CBC, CMP, LIPID #### [facility] [address] [place] [address] Commemt1 Glu2: Cleaned Meter Normal [facility] Comment on above: Result Comment: PERF ORMED BY: [place] [address] PATHOLOGIST POLYMER CHEMIST ROSARIO COWART M.D. Performed By: #### G LULS #### Point of Care testing , Glucose [Mass/Vol] 161 mg/dL Normal [facility] Comment on above: Result Comment: [place] Glucose Reference Range is dependent on time and content of last meal. Glucose of more than 200 mg/dL in a nonstressed, ambulatory subject supports the diagnosis of Diabetes Mellitus. Performed By: #### G LULS #### Point of Care testing , Troponin I High Sensitivityo n 02-07-2025 Troponin I High Sensitivity 536 Off scale high 0-20 [facility] Comment on above: Result Comment: Crit ical Result : Called to and read back by: ISABEL MONTERO at: 02/07/2025 05:21:30 by:CG The Troponin units of report have been changed to meet the Chest Pain Accreditation requirement, element EC5.M1l2. Troponin units are changed from pg/ml to ng/L. Also, the decimal is removed and results are in whole numbers. PERFORMED BY: [place] [address] PATHOLOGIST POLYMER CHEMIST ROSARIO COWART M.D. Performed By: #### H S TROP #### [place] [id number] [facility] Alanine aminotransferase [En zymatic activity/volume] in Serum or PlasmaOrdered By: Merlin Escobar on 02-06-2025 ALT [Catalytic activity/Vol] 18 U/L Normal 7-52 [facility] Comment on above: Performed By: #### T SH3, A1C WTH eA, CBC, CMP, LIPID #### [facility] [address] [place] [address] [place] Albumin [Mass/volume] in Ser um or Plasma by Bromocresol green (BCG) dye binding methoOrdered By: Merlin Escobar on 02-06-2025 Albumin BCG dye [Mass/Vol] 3.6 g/dL 3.5-5.7 [facility] Alkaline phosphatase [Enzyma tic activity/volume] in Serum or PlasmaOrdered By: Merlin Escobar on 02-06-2025 ALP [Catalytic activity/Vol] 82 U/L Normal 34-104 [facility] Comment on above: Performed By: #### T SH3, A1C WTH eA, CBC, CMP, LIPID #### [facility] [address] Appearance of UrineOrdered B y: Merlin Escobar on 02-06-2025 Appearance (U) Clear Normal Clear [facility] Comment on above: Order Comment: Name Collection Type:: Clean-Voided Midstream Performed By: #### T SH3, A1C WTH eA, CBC, CMP, LIPID #### [facility] [address] [place] [address] [place] Aspartate aminotransferase [ Enzymatic activity/volume] in Serum or PlasmaOrdered By: Merlin Escobar on 02-06-2025 AST [Catalytic activity/Vol] 20 U/L Normal 13-39 [facility] Comment on above: Performed By: #### T SH3, A1C WTH eA, CBC, CMP, LIPID #### [facility] [address] BNP ser/plasOrdered By: Ezio Escobar on 02-06-2025 Natriuretic peptide B (Bld) [Mass/Vol] 144.0 pg/mL High 5-100 [facility] Comment on above: Result Comment: PERF ORMED BY: [place] [address] PATHOLOGIST POLYMER CHEMIST ROSARIO COWART M.D. Performed By: #### T SH3, A1C WTH eA, CBC, CMP, LIPID #### [facility] [address] Bacteria [Presence] in Urine by AutomatedOrdered By: Merlin Escobar on 02-06-2025 Bacteria Auto Ql (U) None seen [HPF] None Seen [facility] Basophils [#/volume] in Bloo d by Automated countOrdered By: Merlni Escobar on 02-06-2025 Basophils (Bld) [#/Vol] 0.0 10*3/uL Normal 0.0-0.2 [facility] Comment on above: Result Comment: PERF ORMED BY: [place] [address] PATHOLOGIST POLYMER CHEMIST ROSARIO COWART M.D. Performed By: #### T SH3, A1C WTH eA, CBC, CMP, LIPID #### [place] [address] [place] Basophils/100 leukocytes in Blood by Automated countOrdered By: Merlin Escobar on 02-06-2025 Basophils/100 WBC (Bld) 0.5 % Normal . [facility] Comment on above: Performed By: #### T SH3, A1C WTH eA, CBC, CMP, LIPID #### [address] Bilirubin Test strip Ql (U)O rdered By: Merlin Escobar on 02-06-2025 Bilirubin Ql (U) Negative Negative [facility] Bilirubin.total [Mass/volume ] in Serum or PlasmaOrdered By: Merlin Escobar on 02-06-2025 Bilirubin [Mass/Vol] 0.5 mg/dL Normal 0.3-1.0 [facility] Comment on above: Performed By: #### T SH3, A1C WTH eA, CBC, CMP, LIPID #### [facility] [address] [place] [address] [place] Calcium [Mass/volume] in Ser um or PlasmaOrdered By: Merlin Escobar on 02-06-2025 Calcium [Mass/Vol] 9.0 mg/dL Normal 8.6-10.3 [facility] Comment on above: Performed By: #### T SH3, A1C WTH eA, CBC, CMP, LIPID #### [address] Carbon dioxide, total [Moles /volume] in Serum or PlasmaOrdered By: Merlin Escobar on 02-06-2025 CO2 [Moles/Vol] 23.3 mmol/L Normal 21.0-31.0 [facility] Comment on above: Performed By: #### T SH3, A1C WTH eA, CBC, CMP, LIPID #### [place] [address] [place] Chloride [Moles/volume] in S albin or PlasmaOrdered By: Merlin Escobar on 02-06-2025 Chloride [Moles/Vol] 108 mmol/L High 98-107 [facility] Comment on above: Performed By: #### T SH3, A1C WTH eA, CBC, CMP, LIPID #### [address] Color of Urine by AutoOrdere d By: Merlin Escobar on 02-06-2025 Color (U) Yellow Normal Yellow [facility] Comment on above: Order Comment: Name Collection Type:: Clean-Voided Midstream Performed By: #### T SH3, A1C WTH eA, CBC, CMP, LIPID #### [place] [address] [place] Complete Blood Count Auto Di ffon 02-06-2025 Mean Corpuscular HGB Conc 34.4 g/dL Normal 32.5-35.6 [facility] Comment on above: Performed By: #### T SH3, A1C WTH eA, CBC, CMP, LIPID #### [place] [address] [place] Monocytes/100 WBC (Bld) 18.31 % Normal 0.00-20.00 [facility] Comment on above: Performed By: #### T SH3, A1C WTH eA, CBC, CMP, LIPID #### [place] [address] [place] NRBC% 0.0 /100{WBC} Normal 0-0.5 The [facility] Comment on above: Performed By: #### T SH3, A1C WTH eA, CBC, CMP, LIPID #### [facility] [address] White Blood Count 6.5 [CFU]/mL Normal 4.1-10.5 The [facility] Comment on above: Performed By: #### T SH3, A1C WTH eA, CBC, CMP, LIPID #### [facility] [address] Comprehensive Metabolic Pane jose 02-06-2025 Albumin [Mass/Vol] 3.6 g/dL Normal 3.5-5.7 The [facility] Comment on above: Performed By: #### T SH3, A1C WTH eA, CBC, CMP, LIPID #### [facility] [address] Creatinine Clr Calc Pharmacy 27.60 Normal [facility] Comment on above: Performed By: #### T SH3, A1C WTH eA, CBC, CMP, LIPID #### [place] [address] [place] GFR/1.73 sq M.predicted MDRD (S/P/Bld) [Vol rate/Area] 34.601 mL/min/{1.73_m2} Normal The [facility] Comment on above: Performed By: #### T SH3, A1C WTH eA, CBC, CMP, LIPID #### [address] Creatine kinase [Enzymatic a ctivity/volume] in Serum or PlasmaOrdered By: Merlin Escobar on 02-06-2025 CK [Catalytic activity/Vol] 146 U/L Normal 30-223 [facility] Comment on above: Performed By: #### T SH3, A1C WTH eA, CBC, CMP, LIPID #### [facility] [address] [place] [address] [place] Creatinine [Mass/volume] in Serum or PlasmaOrdered By: Merlin Escobar on 02-06-2025 Creatinine [Mass/Vol] 1.85 mg/dL High 0.70-1.30 [facility] Comment on above: Performed By: #### T SH3, A1C WTH eA, CBC, CMP, LIPID #### [address] Dipstick and Microscopicon 0 02-06-2025 Bacteria,Urine None Seen Normal None Seen The [facility] Comment on above: Order Comment: Name Collection Type:: Clean-Voided Midstream Performed By: #### T SH3, A1C WTH eA, CBC, CMP, LIPID #### [address] Bilirubin,Urine Negative Normal Negative The [facility] Comment on above: Order Comment: Name Collection Type:: Clean-Voided Midstream Performed By: #### T SH3, A1C WTH eA, CBC, CMP, LIPID #### [address] Glucose Ql (U) Normal Normal Normal The [facility] Comment on above: Order Comment: Name Collection Type:: Clean-Voided Midstream Performed By: #### T SH3, A1C WTH eA, CBC, CMP, LIPID #### [address] Hyaline Casts,Urine 9-19 Normal 0-8 [facility] Comment on above: Order Comment: Name Collection Type:: Clean-Voided Midstream Performed By: #### T SH3, A1C WTH eA, CBC, CMP, LIPID #### [address] Mucus,Urine 1+ [LPF] Critically abnormal [facility] Comment on above: Order Comment: Name Collection Type:: Clean-Voided Midstream Result Comment: PERF ORMED BY: [place] [address] PATHOLOGIST POLYMER CHEMIST ROSARIO COWRAT M.D. Performed By: #### T SH3, A1C WTH eA, CBC, CMP, LIPID #### [place] [address] [place] Nitrite,Urine Negative Normal Negative The [facility] Comment on above: Order Comment: Name Collection Type:: Clean-Voided Midstream Performed By: #### T SH3, A1C WTH eA, CBC, CMP, LIPID #### [address] Occult Blood,Urine Negative Normal Negative [facility] Comment on above: Order Comment: Name Collection Type:: Clean-Voided Midstream Result Comment: PERF ORMED BY: [place] [address] PATHOLOGIST POLYMER CHEMIST ROSARIO COWART M.D. Performed By: #### T SH3, A1C WTH eA, CBC, CMP, LIPID #### [address] Protein,Urine Negative Normal Negative [facility] Comment on above: Order Comment: Name Collection Type:: Clean-Voided Midstream Performed By: #### T SH3, A1C WTH eA, CBC, CMP, LIPID #### [address] RBC,Urine 1-2 Normal 0-4 [facility] Comment on above: Order Comment: Name Collection Type:: Clean-Voided Midstream Performed By: #### T SH3, A1C WTH eA, CBC, CMP, LIPID #### [address] Specificy [place],Urine 1.018 Normal 1.001-1.03 0 [facility] Comment on above: Order Comment: Name Collection Type:: Clean-Voided Midstream Performed By: #### T SH3, A1C WTH eA, CBC, CMP, LIPID #### [place] [address] [place] Squamous Epithelial Cell,Urine 1-2 Normal 0-2 [facility] Comment on above: Order Comment: Name Collection Type:: Clean-Voided Midstream Performed By: #### T SH3, A1C WTH eA, CBC, CMP, LIPID #### [place] [address] [place] Urobilinogen,Urine Normal Normal Normal [facility] Comment on above: Order Comment: Name Collection Type:: Clean-Voided Midstream Performed By: #### T SH3, A1C WTH eA, CBC, CMP, LIPID #### [address] [address] [place] WBC,Urine 3-4 Normal 0-4 [facility] Comment on above: Order Comment: Name Collection Type:: Clean-Voided Midstream Performed By: #### T SH3, A1C WT eA, CBC, CMP, LIPID #### [facility] [address] ECG 12 lead ECGon 02-06-2025 ECG 12 lead ECG [facility] [place] [address] [place] [address] Electrocardiograph Report Signed Patient: Ever Mason MR#: [id number] : [id number] Acct:[id number] Age/Sex: 89 / M ADM Date: 02/06/25 Loc: ER Room: Type: [facility] ER Attending Dr: Ordering Provider: Merlin Escobar DO Date of Service: 02/06/25 ECG/ECG 12 lead ECG: Shortness of Breath/Dyspnea Copies to: Test Reason : Blood Pressure : */* mmHG Vent. Rate : 62 BPM Atrial Rate : 62 BPM P-R Int : 174 ms QRS Dur : 92 ms QT Int : 408 ms P-R-T Axes : 53 -2 46 degrees QTcB Int : 414 ms Normal sinus rhythm Confirmed by Merlin ESCOBAR DO ([id number]) on 02/06/2025 3:04:21 PM Referred By: Electronically Signed By: Merlin ESCOBAR DO Transcribed By: MUS Signed By Merlin Escobar DO 0 02/06/25 1504 Normal [facility] Eosinophils [#/volume] in Bl ood by Automated countOrdered By: Merlin Escobar on 02-06-2025 Eosinophils (Bld) [#/Vol] 0.1 10*3/uL Normal 0.0-0.45 [facility] Comment on above: Performed By: #### T SH3, A1C WTH eA, CBC, CMP, LIPID #### [facility] [address] [place], [place] [id number] [place] Eosinophils/100 leukocytes i n Blood by Automated countOrdered By: Merlin Escobar on 02-06-2025 Eosinophils/100 WBC (Bld) 0.9 % Normal . [facility] Comment on above: Performed By: #### T SH3, A1C WTH eA, CBC, CMP, LIPID #### [facility] [address] Epithelial cells.squamous [# /area] in Urine sediment by Automated countOrdered By: Merlin Escobar on 02-06-2025 Epithelial cells.squamous Auto (Urine sed) [#/Area] 1-2 [HPF] 0-2 [facility] Erythrocyte distribution wid th [Ratio] by Automated countOrdered By: Merlin Escobar on 02-06-2025 Erythrocyte distribution width (RBC) [Ratio] 13.0 % Normal 12.0-14.8 [facility] Comment on above: Performed By: #### T SH3, A1C WTH eA, CBC, CMP, LIPID #### [facility] [address] Erythrocytes [#/area] in Uri ne sediment by Automated countOrdered By: Merlin Escobar on 02-06-2025 RBC Auto (Urine sed) [#/Area] 1-2 [HPF] 0-4 [facility] Erythrocytes [#/volume] in B lood by Automated countOrdered By: Merlin Escobar on 02-06-2025 RBC (Bld) [#/Vol] 3.38 10*6/uL Low 3.90-5.60 [facility] Comment on above: Performed By: #### T SH3, A1C WTH eA, CBC, CMP, LIPID #### [facility] [address] [place] [address] Glomerular filtration rate [ Volume Rate/Area] in Serum, Plasma or Blood by CreatinineOrdered By: Merlin Escobar on 02-06-2025 Glomerular filtration rate [Volume Rate/Area] in Serum, Plasma or Blood by Creatinine 34.601 mL/Min [facility] Glucose Poct Glucometerson 0 02-06-2025 Commemt1 Glu2: Cleaned Meter Normal [facility] Comment on above: Result Comment: PERF ORMED BY: [place] [address] PATHOLOGIST POLYMER CHEMIST ROSARIO COWART M.D. Performed By: #### G LULS #### Point of Care testing , Glucose [Mass/Vol] 248 mg/dL Normal [facility] Comment on above: Result Comment: [place] om Glucose Reference Range is dependent on time and content of last meal. Glucose of more than 200 mg/dL in a nonstressed, ambulatory subject supports the diagnosis of Diabetes Mellitus. Performed By: #### G CHA #### Point of Care testing , Glucose [Mass/volume] in Ser um or PlasmaOrdered By: Merlin Escobar on 02-06-2025 Glucose [Mass/Vol] 226 mg/dL High 70-100 [facility] Comment on above: ADA recommended refe rence rangeRandom Glucose Reference Range is dependent on time and content of last meal. Glucose of more than 200 mg/dL in a nonstressed, ambulatory subject supports the diagnosis of Diabetes Mellitus. Result Comment: [place] Glucose Reference Range is dependent on time and content of last meal. Glucose of more than 200 mg/dL in a nonstressed, ambulatory subject supports the diagnosis of Diabetes Mellitus. ADA recommended reference range Performed By: #### T SH3, A1C WTH eA, CBC, CMP, LIPID #### [facility] [address] [place] [id number] [place] Glucose [Mass/volume] in Uri ne by Test stripOrdered By: Merlin Escobar on 02-06-2025 Glucose Test strip (U) [Mass/Vol] Normal mg/dL Normal [facility] Hematocrit [Volume Fraction] of Blood by Automated countOrdered By: Merlin Escobar on 02-06-2025 Hematocrit (Bld) [Volume fraction] 32.3 % Low 38.8-50.0 [facility] Comment on above: Performed By: #### T SH3, A1C WTH eA, CBC, CMP, LIPID #### [facility] [address] [place] [address] [place] Hemoglobin Test strip Ql (U) Ordered By: Merlin Escobar on 02-06-2025 Hemoglobin Ql (U) Negative Negative [facility] Hemoglobin [Mass/volume] in BloodOrdered By: Merlin Escobar on 02-06-2025 Hemoglobin (Bld) [Mass/Vol] 11.1 g/dL Low 13.0-17.0 [facility] Comment on above: Performed By: #### T SH3, A1C WTH eA, CBC, CMP, LIPID #### [facility] [address] [place] [address] [place] Hyaline casts [#/area] in Ur ine sediment by Automated countOrdered By: Merlin Escobar on 02-06-2025 Hyaline casts Auto (Urine sed) [#/Area] 9-19 [LPF] High 0-8 [facility] INR in Platelet poor plasma by Coagulation assayOrdered By: Merlin Escobar on 02-06-2025 INR Coag (PPP) [Relative time] 1.1 {INR} Normal [facility] Comment on above: INR Therapeutic Rang e A) Pre- and Peroperative OAT started two weeks before surgery. NOT HIP SURGERY: 1.5 - 2.5 HIP SURGERY: 2 - 3B) Primary and secondary prevention of venous THROMBOSIS: 2 - 3C) Active venous thrombosis, pulmonary embolismand prevention of recurrent venous thrombosis: 2 - 3D) Prevention of arterial thromboembolismincluding patients with mechanical heart valves: 3 - 4.5 Result Comment: INR Therapeutic Range A) Pre- and Peroperative OAT started two weeks before surgery. NOT HIP SURGERY: 1.5 - 2.5 HIP SURGERY: 2 - 3 B) Primary and secondary prevention of venous THROMBOSIS: 2 - 3 C) Active venous thrombosis, pulmonary embolism and prevention of recurrent venous thrombosis: 2 - 3 D) Prevention of arterial thromboembolism including patients with mechanical heart valves: 3 - 4.5 Performed By: #### T SH3, A1C WTH eA, CBC, CMP, LIPID #### [facility] [address] [place] [id number] [place] Ketones [Presence] in Urine by Test stripOrdered By: Merlin Escobar on 02-06-2025 Ketones Ql (U) Negative Normal Negative [facility] Comment on above: Order Comment: Name Collection Type:: Clean-Voided Midstream Performed By: #### T SH3, A1C WTH eA, CBC, CMP, LIPID #### [facility] [address] [place] [id number] [place] Leukocyte esterase [Presence ] in Urine by Test stripOrdered By: Merlin Escobar on 02-06-2025 Leukocyte esterase Test strip Ql (U) 1+ Normal Negative [facility] Comment on above: Order Comment: Name Collection Type:: Clean-Voided Midstream Performed By: #### T SH3, A1C WTH eA, CBC, CMP, LIPID #### [facility] [address] [place] [address] [place] Leukocytes [#/area] in Urine sediment by Automated countOrdered By: Merlin Escobar on 02-06-2025 WBC Auto (Urine sed) [#/Area] 3-4 [HPF] 0-4 [facility] Leukocytes [#/volume] correc yana for nucleated erythrocytes in Blood by Automated counOrdered By: Merlin Escobar on 02-06-2025 WBC corrected for nucl RBC Auto (Bld) [#/Vol] 6.5 10*3/uL 4.1-10.5 [facility] Leukocytes [#/volume] in Blo od by Automated countOrdered By: Merlin Escobar on 02-06-2025 WBC (Bld) [#/Vol] 6.5 10*3/uL Normal 4.1-10.5 [facility] Comment on above: Performed By: #### T SH3, A1C WTH eA, CBC, CMP, LIPID #### [facility] [address] [place] [address] [place] Lymphocytes [#/volume] in Bl ood by Automated countOrdered By: Merlin Escobar on 02-06-2025 Lymphocytes (Bld) [#/Vol] 0.8 10*3/uL Low 1.00-4.8 [facility] Comment on above: Performed By: #### T SH3, A1C WTH eA, CBC, CMP, LIPID #### [facility] [address] [place] [address] [place] Lymphocytes/100 leukocytes i n Blood by Automated countOrdered By: Merlin Escobar on 02-06-2025 Lymphocytes/100 WBC (Bld) 13.0 % Normal . [facility] Comment on above: Performed By: #### T SH3, A1C WTH eA, CBC, CMP, LIPID #### [facility] [address] [place] [address] [place] MCH [Entitic mass] by Automa yana countOrdered By: Meriln Escobar on 02-06-2025 MCH (RBC) [Entitic mass] 32.9 pg Normal 27.5-35.2 [facility] Comment on above: Performed By: #### T SH3, A1C WTH eA, CBC, CMP, LIPID #### [facility] [address] [place] [address] MCHC Auto (RBC) [Mass/Vol]Or dered By: Merlin Escobar on 02-06-2025 MCHC (RBC) [Mass/Vol] 34.4 g/dL 32.5-35.6 [facility] MCV [Entitic volume] by Auto mated countOrdered By: Merlin Escobar on 02-06-2025 MCV (RBC) [Entitic vol] 95.8 fL Normal 83.5-101 [facility] Comment on above: Performed By: #### T SH3, A1C WTH eA, CBC, CMP, LIPID #### [facility] [address] [place] [address] Magnesium [Mass/volume] in S albin or PlasmaOrdered By: Merlin Escobar on 02-06-2025 Magnesium [Mass/Vol] 1.8 mg/dL Low 1.9-2.7 [facility] Comment on above: Result Comment: PERF ORMED BY: [place] [address] PATHOLOGIST POLYMER CHEMIST ROSARIO COWART M.D. Performed By: #### T SH3, A1C WTH eA, CBC, CMP, LIPID #### [facility] [address] [place] [address] Monocyte distribution width [Entitic volume] in Blood by AutomatedOrdered By: Merlin Escobar on 02-06-2025 Monocyte distribution width Auto (Bld) [Entitic vol] 18.31 % 0.00-20.00 [facility] Monocytes [#/volume] in Bloo d by Automated countOrdered By: Merlin Escobar on 02-06-2025 Monocytes (Bld) [#/Vol] 0.7 10*3/uL Normal 0.0-0.8 [facility] Comment on above: Performed By: #### T SH3, A1C WTH eA, CBC, CMP, LIPID #### [facility] [address] [place] [address] [place] Monocytes/100 leukocytes in Blood by Automated countOrdered By: Merlin Escobar on 02-06-2025 Monocytes/100 WBC (Bld) 10.7 % Normal . [facility] Comment on above: Performed By: #### T SH3, A1C WTH eA, CBC, CMP, LIPID #### [facility] [address] [place] [address] [place] Mucus [Presence] in Urine by AutomatedOrdered By: Merlin Escobar on 02-06-2025 Mucus Auto Ql (U) 1+ [LPF] Abnormal [facility] Neutrophils [#/volume] in Bl ood by Automated countOrdered By: Merlin Escobar on 02-06-2025 Neutrophils (Bld) [#/Vol] 4.8 10*3/uL Normal 1.8-7.7 [facility] Comment on above: Performed By: #### T SH3, A1C WTH eA, CBC, CMP, LIPID #### [facility] [address] [place] [address] [place] Neutrophils/100 leukocytes i n Blood by Automated countOrdered By: Merlin Escobar on 02-06-2025 Neutrophils/100 WBC (Bld) 74.9 % Normal . [facility] Comment on above: Performed By: #### T SH3, A1C WTH eA, CBC, CMP, LIPID #### [address] Nitrite Test strip Ql (U)Ord ered By: Merlin Escobar on 02-06-2025 Nitrite Ql (U) Negative Negative [facility] No Panel InformationOrdered By: Merlin Escobar on 02-06-2025 Pharmacy Creatinine Clearance (Chem 27.60 [facility] Nucleated erythrocytes [Pres ence] in Blood by Automated countOrdered By: Merlin Escobar on 02-06-2025 Nucleated RBC Auto Ql (Bld) 0.0 /100{WBC} 0-0.5 [facility] Partial Thromboplastin Timeo n 02-06-2025 aPTT Coag (Bld) [Time] 26.2 s Normal 25.1-36.5 Th e [facility] Comment on above: Result Comment: A he matocrit value greater than 55% may lead to inaccurate results in coagulation testing. Patients having hematocrit values >55% require a special collection tube for coagulation studies. Please contact the laboratory at [phone] for redraw instructions. PERFORMED BY: [place] [address] PATHOLOGIST POLYMER CHEMIST ROSARIO COWART M.D. Performed By: #### T SH3, A1C WTH eA, CBC, CMP, LIPID #### [address] Platelet mean volume [Entiti c volume] in Blood by Automated countOrdered By: Merlin Escobar on 02-06-2025 Platelet mean volume (Bld) [Entitic vol] 8.9 fL Normal 6.6-10.1 [facility] Comment on above: Performed By: #### T SH3, A1C WTH eA, CBC, CMP, LIPID #### [place] [address] [place] Platelets [#/volume] in Bloo d by Automated countOrdered By: Merlin Escobar on 02-06-2025 Platelets (Bld) [#/Vol] 137 10*3/uL Low 150-450 [facility] Comment on above: Performed By: #### T SH3, A1C WTH eA, CBC, CMP, LIPID #### [place] [address] [place] Potassium [Moles/volume] in Serum or PlasmaOrdered By: Mrelin Escobar on 02-06-2025 Potassium [Moles/Vol] 4.9 mmol/L Normal 3.5-5.1 [facility] Comment on above: Performed By: #### T SH3, A1C WTH eA, CBC, CMP, LIPID #### [place] [address] [place] Protein Test strip (U) [Mass /Vol]Ordered By: Merlin Escobar on 02-06-2025 Protein (U) [Mass/Vol] Negative Negative [facility] Protein [Mass/volume] in Ser um or PlasmaOrdered By: Merlin Escobar on 02-06-2025 Protein [Mass/Vol] 5.8 g/dL Low 6.4-8.9 [facility] Comment on above: Performed By: #### T SH3, A1C WTH eA, CBC, CMP, LIPID #### [address] Prothrombin time (PT)Ordered By: Merlin Escobar on 02-06-2025 PT Coag (PPP) [Time] 12.2 s Normal 9.0-12.9 [facility] Comment on above: A hematocrit value g reater than 55% may lead to inaccurate results in coagulation testing. Patients having hematocrit values >55% require a special collection tube for coagulation studies. Please contact the laboratory at [phone] for redraw instructions. Result Comment: A he matocrit value greater than 55% may lead to inaccurate results in coagulation testing. Patients having hematocrit values >55% require a special collection tube for coagulation studies. Please contact the laboratory at [phone] for redraw instructions. Performed By: #### T SH3, A1C WTH eA, CBC, CMP, LIPID #### [facility] [address] [place] [address] Serum globulin measurement b y calculation (mass/volume)Ordered By: Merlin Escobar on 02-06-2025 Globulin (S) [Mass/Vol] 2.2 g/dL [facility] Comment on above: Performed By: #### T SH3, A1C WTH eA, CBC, CMP, LIPID #### [facility] [address] [place] [address] Serum or plasma albumin/glob ulin mass ratioOrdered By: Merlin Escobar on 02-06-2025 Albumin/Globulin [Mass ratio] 1.6 {ratio} [facility] Comment on above: Performed By: #### T SH3, A1C WTH eA, CBC, CMP, LIPID #### [facility] [address] [place] [address] Serum or plasma anion gap de terminationOrdered By: Merlin Escobar on 02-06-2025 Anion gap [Moles/Vol] 9.6 mmol/L Normal 6.0-15.0 [facility] Comment on above: Performed By: #### T SH3, A1C WTH eA, CBC, CMP, LIPID #### [facility] [address] Sodium [Moles/volume] in Ser um or PlasmaOrdered By: Merlin Escobar on 02-06-2025 Sodium [Moles/Vol] 136 mmol/L Normal 136-145 [facility] Comment on above: Performed By: #### T SH3, A1C WT eA, CBC, CMP, LIPID #### [facility] [address] Specific gravity Test strip (U) [Rel density]Ordered By: Merlin Escobar on 02-06-2025 Specific gravity (U) [Rel density] 1.018 1.001-1.03 0 [facility] Stool Occult Blood (Guaiac)o n 02-06-2025 Stool Occult Blood (Guaiac) Occult Blood Negative for Occult Blood by Guaiac Methodology ---- Reference range = Negative PERFORMED BY: [place] [address] PATHOLOGIST POLYMER CHEMIST ROSARIO Sesay [facility] Comment on above: Performed By: #### O B(GUAIAC) #### [address] Stool gastrointestinal hemog lobin detectionOrdered By: Merlin Escobar on 02-06-2025 Hemoglobin.gastrointes tinal Ql (Stl) [facility] Troponin I High Sensitivityo n 02-06-2025 Troponin I High Sensitivity 627 Off scale high 0-20 [facility] Comment on above: Order Comment: PT GO ING TO 4P21 Result Comment: Crit ical Result : Called to and read back by: EMILY SCOTT at: 02/06/2025 19:04:20 by:[id number] The Troponin units of report have been changed to meet the Chest Pain Accreditation requirement, element EC5.M1l2. Troponin units are changed from pg/ml to ng/L. Also, the decimal is removed and results are in whole numbers. PERFORMED BY: [place] [address] PATHOLOGIST POLYMER CHEMIST ROSARIO COWART M.D. Performed By: #### T SH3, A1C WT eA, CBC, CMP, LIPID #### [address] [address] [facility] Troponin I High Sensitivity 650 Off scale high 0-20 [facility] Comment on above: Result Comment: Crit ical Result : Called to and read back by: ALICIA PLUMMER at: 02/06/2025 14:35:08 by:[email or web address] The Troponin units of report have been changed to meet the Chest Pain Accreditation requirement, element EC5.M1l2. Troponin units are changed from pg/ml to ng/L. Also, the decimal is removed and results are in whole numbers. PERFORMED BY: [address] [place] [address] PATHOLOGIST POLYMER CHEMIST ROSARIO COWART M.D. Performed By: #### T SH3, A1C [facility] eA, CBC, CMP, LIPID #### [place] [id number] [facility] Troponin I.cardiac [Mass/vol ume] in Serum or Plasma by Detection limit <= 0.01 ng/mLOrdered By: Jg Olvera on 02-06-2025 Troponin I.cardiac DL <= 0.01 ng/mL [Mass/Vol] 627 ng/L Critically high 0-20 [facility] Comment on above: Critical Result : Ca lled to and read back by: EMILY SCOTT at: 02/06/2025 19:04:20 by:[id number] Troponin units of report have been changed to meet the Chest Pain Accreditation requirement, element EC5.M1l2. Troponin units are changed from pg/ml to ng/L. Also, the decimal is removed and results are in whole numbers. Urea nitrogen [Mass/volume] in Serum or PlasmaOrdered By: Merlin Escobar on 02-06-2025 Urea nitrogen [Mass/Vol] 47 mg/dL High 7-25 [facility] Comment on above: Performed By: #### T SH3, A1C WTH eA, CBC, CMP, LIPID #### [address] Urobilinogen Test strip (U) [Mass/Vol]Ordered By: Merlin Escobar on 02-06-2025 Urobilinogen (U) [Mass/Vol] Normal mg/dL Normal [facility] X-ray reportOrdered By: Bairon Ramirez on 02-06-2025 Study report [facility] [place], [place] [id number] XRay Report Signed Patient: Ever Mason MR#: [id number] : 1935 Acct:[id number] Age/Sex: 89 / M ADM Date: 5 Loc: ER Room: Type: [facility] ER Attending Dr: Copies to: Merlin Escobar DO~ Ordering Provider: Merlin Escobar DO Date of Service: 02/06/25 XR/XR chest 2V*: Shortness of Breath/Dyspnea Chest 2 views CLINICAL HISTORY: Increasing shortness of breath over the past 2 days. COMPARISON: Chest 01/17/2024 FINDINGS: Heart normal in size. Bibasilar atelectasis/scarring. No consolidation pneumothorax pleural effusion or free air. XR/XR chest 2V* IMPRESSION: BIBASILAR ATELECTASIS/SCARRING SIMILAR TO THE PRIOR STUDY. Impression dictated by: Nahum Ramirez Jr., D.OHarshad 02/06/2025 1:59 PM Dictation Location: [place] [address] Transcribed By: [facility] 02/06/25 1359 Dictated By: Nahum Ramirez Jr, DO 02/06/25 1359 Signed By: 02/06/25 1359 [facility] XR chest 2V*on 02-06-2025 XR chest 2V* [facility] Main [place] [id number] XRay Report Signed Patient: Ever Mason MR#: [id number] : 1935 Acct:[id number] Age/Sex: 89 / M ADM Date: 02/06/25 Loc: ER Room: Type: [facility] ER Attending Dr: Copies to: Merlin Escobar DO Ordering Provider: Merlin Escobar DO Date of Service: 02/06/25 XR/XR chest 2V*: Shortness of Breath/Dyspnea Chest 2 views CLINICAL HISTORY: Increasing shortness of breath over the past 2 days. COMPARISON: Chest 01/17/2024 FINDINGS: Heart normal in size. Bibasilar atelectasis/scarring. No consolidation pneumothorax pleural effusion or free air. XR/XR chest 2V* IMPRESSION: BIBASILAR ATELECTASIS/SCARRING SIMILAR TO THE PRIOR STUDY. Impression dictated by: Nahum Ramirez Jr., D.OHarshad 02/06/2025 1:59 PM Dictation Location: [place] [address] Transcribed By: [facility] 02/06/25 1359 Dictated By: Nahum Ramirez Jr, DO 02/06/25 1359 Signed By: 02/06/25 1359 Normal [facility] aPTT in Platelet poor plasma by Coagulation assayOrdered By: Merlin Escobar on 02-06-2025 aPTT Coag (PPP) [Time] 26.2 s 25.1-36.5 [facility] Comment on above: A hematocrit value g reater than 55% may lead to inaccurate results in coagulation testing. Patients having hematocrit values >55% require a special collection tube for coagulation studies. Please contact the laboratory at [phone] for redraw instructions. pH of Urine by Test stripOrd ered By: Merlin Escobar on 02-06-2025 pH (U) 5.0 [pH] Normal 5.0-9.0 [facility] Comment on above: Order Comment: Name Collection Type:: Clean-Voided Midstream Performed By: #### T SH3, A1C WTH eA, CBC, CMP, LIPID #### [address] A1C with Estimated Average G yuann 10-15-2024 Glucose [Mass/Vol] 148 mg/dL Normal [facility] Comment on above: Result Comment: PERF ORMED BY: [place] [address] PATHOLOGIST POLYMER CHEMIST ROSARIO COWART M.D. Performed By: #### T SH3, A1C WTH eA, CBC, CMP, LIPID #### [facility] [address] Alanine aminotransferase [En zymatic activity/volume] in Serum or PlasmaOrdered By: Justice Singh on 10-15-2024 ALT [Catalytic activity/Vol] Alanine aminotransferase [Enzymatic activity/volume] in Serum or Plasma 7 [facility] ALT [Catalytic activity/Vol] 14 U/L Normal [facility] Comment on above: Performed By: #### T SH3, A1C WTH eA, CBC, CMP, LIPID #### [facility] [address] [place] [address] [place] Albumin [Mass/volume] in Ser um or Plasma by Bromocresol green (BCG) dye binding methoOrdered By: Justice Singh on 10-15-2024 Albumin BCG dye [Mass/Vol] Albumin [Mass/volume] in Serum or Plasma by Bromocresol green (BCG) dye binding metho 3.5-5.7 [facility] Albumin BCG dye [Mass/Vol] 3.8 g/dL 3.5-5.7 [facility] Alkaline phosphatase [Enzyma tic activity/volume] in Serum or PlasmaOrdered By: Justice Singh on 10-15-2024 ALP [Catalytic activity/Vol] Alkaline phosphatase [Enzymatic activity/volume] in Serum or Plasma 34-104 [facility] ALP [Catalytic activity/Vol] 104 U/L Normal 34-104 [facility] Comment on above: Result Comment: PERF ORMED BY: [place] [address] PATHOLOGIST POLYMER CHEMIST ROSARIO COWART M.D. Performed By: #### T SH3, A1C WTH eA, CBC, CMP, LIPID #### [facility] [address] [place] [id number] [place] Aspartate aminotransferase [ Enzymatic activity/volume] in Serum or PlasmaOrdered By: Justice Singh on 10-15-2024 AST [Catalytic activity/Vol] Aspartate aminotransferase [Enzymatic activity/volume] in Serum or Plasma 13-39 [facility] AST [Catalytic activity/Vol] 16 U/L Normal [facility] Comment on above: Performed By: #### T SH3, A1C WTH eA, CBC, CMP, LIPID #### [facility] [address] Basophils Auto (Bld) [#/Vol] Ordered By: Justice Singh on 10-15-2024 Basophils (Bld) [#/Vol] Automated basophil count 0.0-0.2 [facility] Basophils [#/volume] in Bloo d by Automated countOrdered By: Justice Singh on 10-15-2024 Basophils (Bld) [#/Vol] 0.1 10*3/uL Normal 0.0-0.2 [facility] Comment on above: Result Comment: PERF ORMED BY: [place] [address] PATHOLOGIST POLYMER CHEMIST ROSARIO COWART M.D. Performed By: #### T SH3, A1C WTH eA, CBC, CMP, LIPID #### [address] Basophils/100 WBC Auto (Bld) Ordered By: Justice Singh on 10-15-2024 Basophils/100 WBC (Bld) Automated basophil % . [facility] Basophils/100 leukocytes in Blood by Automated countOrdered By: Justice Singh on 10-15-2024 Basophils/100 WBC (Bld) 0.9 % Normal . [facility] Comment on above: Performed By: #### T SH3, A1C WTH eA, CBC, CMP, LIPID #### [facility] [address] Bilirubin.total [Mass/volume ] in Serum or PlasmaOrdered By: Justice Singh on 10-15-2024 Bilirubin [Mass/Vol] Bilirubin.total [Mass/volume] in Serum or Plasma 0.3-1.0 [facility] Bilirubin [Mass/Vol] 0.7 mg/dL Normal 0.3-1.0 [facility] Comment on above: Performed By: #### T SH3, A1C WTH eA, CBC, CMP, LIPID #### [facility] [address] Blood estimated average gluc ose determination by estimation from glycated hemoglobinOrdered By: Justice Singh on 10-15-2024 Average glucose Estimated from glycated hemoglobin (Bld) [Mass/Vol] 148 mg/dL [facility] Calcium [Mass/volume] in Ser um or PlasmaOrdered By: Justice Singh on 10-15-2024 Calcium [Mass/Vol] Calcium [Mass/volume ] in Serum or Plasma 8.6-10.3 [facility] Calcium [Mass/Vol] 9.2 mg/dL Normal 8.6-10.3 [facility] Comment on above: Performed By: #### T SH3, A1C WTH eA, CBC, CMP, LIPID #### [address] Carbon dioxide, total [Moles /volume] in Serum or PlasmaOrdered By: Justice Singh on 10-15-2024 CO2 [Moles/Vol] Carbon dioxide, tota l [Moles/volume] in Serum or Plasma 21.0-31.0 [facility] CO2 [Moles/Vol] 27.1 mmol/L Normal 21.0-31.0 [facility] Comment on above: Performed By: #### T SH3, A1C WTH eA, CBC, CMP, LIPID #### [address] Chloride [Moles/volume] in S albin or PlasmaOrdered By: Justice Singh on 10-15-2024 Chloride [Moles/Vol] Chloride [Moles/vol ume] in Serum or Plasma High 98-107 [facility] Chloride [Moles/Vol] 109 mmol/L High 98-107 [facility] Comment on above: Performed By: #### T SH3, A1C WTH eA, CBC, CMP, LIPID #### [facility] [address] Complete Blood Count Auto Di ffon 10-15-2024 Mean Corpuscular HGB Conc 34.2 g/dL Normal 32.5-35.6 [facility] Comment on above: Performed By: #### T SH3, A1C WTH eA, CBC, CMP, LIPID #### [facility] [address] [place] [address] NRBC% 0.1 /100{WBC} Normal 0-0.5 [facility] Comment on above: Performed By: #### T SH3, A1C WTH eA, CBC, CMP, LIPID #### [facility] [address] [place] [address] Comprehensive Metabolic Pane jose 10-15-2024 Albumin [Mass/Vol] 3.8 g/dL Normal 3.5-5.7 [facility] Comment on above: Performed By: #### T SH3, A1C WTH eA, CBC, CMP, LIPID #### [address] Estimated GFR 43.801 mL/Min Normal [facility] Comment on above: Performed By: #### T SH3, A1C WTH eA, CBC, CMP, LIPID #### [address] Creatinine [Mass/volume] in Serum or PlasmaOrdered By: Justice Singh on 10-15-2024 Creatinine [Mass/Vol] Creatinine [Mass/v olume] in Serum or Plasma High 0.70-1.30 [facility] Creatinine [Mass/Vol] 1.52 mg/dL High 0.70-1.30 [facility] Comment on above: Performed By: #### T SH3, A1C WTH eA, CBC, CMP, LIPID #### [place] [address] [place] Eosinophils Auto (Bld) [#/Vo l]Ordered By: Justice Singh on 10-15-2024 Eosinophils (Bld) [#/Vol] Automated eosinophil count 0.0-0.45 [facility] Eosinophils [#/volume] in Bl ood by Automated countOrdered By: Justice Singh on 10-15-2024 Eosinophils (Bld) [#/Vol] 0.1 10*3/uL Normal 0.0-0.45 [facility] Comment on above: Performed By: #### T SH3, A1C WTH eA, CBC, CMP, LIPID #### [facility] [address] Eosinophils/100 WBC Auto (Bl d)Ordered By: Justice Singh on 10-15-2024 Eosinophils/100 WBC (Bld) Automated eosinophil % . [facility] Eosinophils/100 leukocytes i n Blood by Automated countOrdered By: Justice Singh on 10-15-2024 Eosinophils/100 WBC (Bld) 1.4 % Normal . [facility] Comment on above: Performed By: #### T SH3, A1C WTH eA, CBC, CMP, LIPID #### [facility] [address] Erythrocyte distribution wid th Auto (RBC) [Ratio]Ordered By: Justice Singh on 10-15-2024 Erythrocyte distribution width (RBC) [Ratio] Erythrocyte distribution width [Ratio] by Automated count 12.0-14.8 [facility] Erythrocyte distribution wid th [Ratio] by Automated countOrdered By: Justice Singh on 10-15-2024 Erythrocyte distribution width (RBC) [Ratio] 13.6 % Normal 12.0-14.8 [facility] Comment on above: Performed By: #### T SH3, A1C WTH eA, CBC, CMP, LIPID #### [address] Erythrocytes [#/volume] in B lood by Automated countOrdered By: Justice Singh on 10-15-2024 RBC (Bld) [#/Vol] 3.82 10*6/uL Low 3.90-5.60 [facility] Comment on above: Performed By: #### T SH3, A1C WTH eA, CBC, CMP, LIPID #### [facility] [address] Globulin Calc (S) [Mass/Vol] Ordered By: Justice Singh on 10-15-2024 Globulin (S) [Mass/Vol] Serum globulin measurement by calculation (mass/volume) [facility] Glucose [Mass/volume] in Ser um or PlasmaOrdered By: Justice Singh on 10-15-2024 Glucose [Mass/Vol] Glucose [Mass/volume ] in Serum or Plasma High 70-100 [facility] Comment on above: ADA recommended refe rence rangeRandom Glucose Reference Range is dependent on time and content of last meal. Glucose of more than 200 mg/dL in a nonstressed, ambulatory subject supports the diagnosis of Diabetes Mellitus. Glucose [Mass/Vol] 104 mg/dL High 70-100 [facility] Comment on above: ADA recommended refe rence rangeRandom Glucose Reference Range is dependent on time and content of last meal. Glucose of more than 200 mg/dL in a nonstressed, ambulatory subject supports the diagnosis of Diabetes Mellitus. Result Comment: [place] om Glucose Reference Range is dependent on time and content of last meal. Glucose of more than 200 mg/dL in a nonstressed, ambulatory subject supports the diagnosis of Diabetes Mellitus. ADA recommended reference range Performed By: #### T SH3, A1C WTH eA, CBC, CMP, LIPID #### [facility] [address] Hematocrit Auto (Bld) [Volum e fraction]Ordered By: Justice Singh on 10-15-2024 Hematocrit (Bld) [Volume fraction] Hematocrit [Volume Fraction] of Blood by Automated count Low 38.8-50.0 [facility] Hematocrit [Volume Fraction] of Blood by Automated countOrdered By: Justice Singh on 10-15-2024 Hematocrit (Bld) [Volume fraction] 37.0 % Low 38.8-50.0 [facility] Comment on above: Performed By: #### T SH3, A1C WTH eA, CBC, CMP, LIPID #### [facility] [address] Hemoglobin A1c/Hemoglobin.to henry in BloodOrdered By: Justice Singh on 10-15-2024 HbA1c (Bld) [Mass fraction] 6.8 % High 4.3-5.6 [facility] Comment on above: Increased risk for d iabetes: 5.7 - 6.4diabetes: >6.4glycemic control for adults with diabetes: <7.0 Result Comment: Incr eased risk for diabetes: 5.7 - 6.4 diabetes: >6.4 glycemic control for adults with diabetes: <7.0 Performed By: #### T SH3, A1C WTH eA, CBC, CMP, LIPID #### [facility] [address] Hemoglobin [Mass/volume] in BloodOrdered By: Justice Singh on 10-15-2024 Hemoglobin (Bld) [Mass/Vol] Hemoglobin [Mass/volume] in Blood Low 13.0-17.0 [facility] Hemoglobin (Bld) [Mass/Vol] 12.7 g/dL Low 13.0-17.0 [facility] Comment on above: Performed By: #### T SH3, A1C WTH eA, CBC, CMP, LIPID #### [address] Leukocytes [#/volume] correc yana for nucleated erythrocytes in Blood by Automated counOrdered By: Justice Singh on 10-15-2024 WBC corrected for nucl RBC Auto (Bld) [#/Vol] Leukocytes [#/volume] corrected for nucleated erythrocytes in Blood by Automated coun 4.1-10.5 [facility] WBC corrected for nucl RBC Auto (Bld) [#/Vol] 7.2 10*3/uL 4.1-10.5 [facility] Leukocytes [#/volume] in Blo od by Automated countOrdered By: Justice Singh on 10-15-2024 WBC (Bld) [#/Vol] 7.2 10*3/uL Normal 4.1-10.5 [facility] Comment on above: Performed By: #### T SH3, A1C WTH eA, CBC, CMP, LIPID #### [facility] [address] Lymphocytes Auto (Bld) [#/Vo l]Ordered By: Justice Singh on 10-15-2024 Lymphocytes (Bld) [#/Vol] Lymphocytes [#/volume] in Blood by Automated count 1.00-4.8 [facility] Lymphocytes [#/volume] in Bl ood by Automated countOrdered By: Justice Singh on 10-15-2024 Lymphocytes (Bld) [#/Vol] 1.1 10*3/uL Normal 1.00-4.8 [facility] Comment on above: Performed By: #### T SH3, A1C WTH eA, CBC, CMP, LIPID #### [facility] [address] [place] [address] Lymphocytes/100 WBC Auto (Bl d)Ordered By: Justice Singh on 10-15-2024 Lymphocytes/100 WBC (Bld) Lymphocytes/100 leukocytes in Blood by Automated count . [facility] Lymphocytes/100 leukocytes i n Blood by Automated countOrdered By: Justice Singh on 10-15-2024 Lymphocytes/100 WBC (Bld) 15.5 % Normal . [facility] Comment on above: Performed By: #### T SH3, A1C WTH eA, CBC, CMP, LIPID #### [facility] [address] [place] [address] MCH Auto (RBC) [Entitic mass ]Ordered By: Justice Singh on 10-15-2024 MCH (RBC) [Entitic mass] MCH [Entitic mass] by Automated count 27.5-35.2 [facility] MCH [Entitic mass] by Automa yana countOrdered By: Justice Singh on 10-15-2024 MCH (RBC) [Entitic mass] 33.2 pg Normal 27.5-35.2 [facility] Comment on above: Performed By: #### T SH3, A1C WTH eA, CBC, CMP, LIPID #### [facility] [address] [place] [address] MCHC Auto (RBC) [Mass/Vol]Or dered By: Justice Singh on 10-15-2024 MCHC (RBC) [Mass/Vol] MCHC [Mass/volume] by Automated count 32.5-35.6 [facility] MCHC (RBC) [Mass/Vol] 34.2 g/dL 32.5-35.6 [facility] MCV Auto (RBC) [Entitic vol] Ordered By: Justice Singh on 10-15-2024 MCV (RBC) [Entitic vol] MCV [Entitic volume] by Automated count 83.5-101 [facility] MCV [Entitic volume] by Auto mated countOrdered By: Justice Singh on 10-15-2024 MCV (RBC) [Entitic vol] 96.9 fL Normal 83.5-101 [facility] Comment on above: Performed By: #### T SH3, A1C WTH eA, CBC, CMP, LIPID #### [facility] [address] Monocytes Auto (Bld) [#/Vol] Ordered By: Justice Singh on 10-15-2024 Monocytes (Bld) [#/Vol] Automated blood monocyte count 0.0-0.8 [facility] Monocytes [#/volume] in Bloo d by Automated countOrdered By: Justice Singh on 10-15-2024 Monocytes (Bld) [#/Vol] 0.6 10*3/uL Normal 0.0-0.8 [facility] Comment on above: Performed By: #### T SH3, A1C WTH eA, CBC, CMP, LIPID #### [address] Monocytes/100 WBC Auto (Bld) Ordered By: Justice Singh on 10-15-2024 Monocytes/100 WBC (Bld) Automated monocyte % . [facility] Monocytes/100 leukocytes in Blood by Automated countOrdered By: Justice Singh on 10-15-2024 Monocytes/100 WBC (Bld) 7.6 % Normal . [facility] Comment on above: Performed By: #### T SH3, A1C WTH eA, CBC, CMP, LIPID #### [place] [address] [place] Neutrophils Auto (Bld) [#/Vo l]Ordered By: Justice Singh on 10-15-2024 Neutrophils (Bld) [#/Vol] Neutrophils [#/volume] in Blood by Automated count 1.8-7.7 [facility] Neutrophils [#/volume] in Bl ood by Automated countOrdered By: Justice Singh on 10-15-2024 Neutrophils (Bld) [#/Vol] 5.4 10*3/uL Normal 1.8-7.7 [facility] Comment on above: Performed By: #### T SH3, A1C WTH eA, CBC, CMP, LIPID #### [facility] [address] [place] [address] [place] Neutrophils/100 WBC Auto (Bl d)Ordered By: Justice Singh on 10-15-2024 Neutrophils/100 WBC (Bld) Automated neutrophil % . [facility] Neutrophils/100 leukocytes i n Blood by Automated countOrdered By: Justice Singh on 10-15-2024 Neutrophils/100 WBC (Bld) 74.6 % Normal . [facility] Comment on above: Performed By: #### T SH3, A1C WTH eA, CBC, CMP, LIPID #### [facility] [address] No Panel InformationOrdered By: Justice Singh on 10-15-2024 Estimated GFR (CKD-EPI) 43.801 mL/Min [facility] Creatinine Clearance (Chem N/A [facility] Nucleated erythrocytes [Pres ence] in Blood by Automated countOrdered By: Justice Singh on 10-15-2024 Nucleated RBC Auto Ql (Bld) Nucleated erythrocytes [Presence] in Blood by Automated count 0-0.5 [facility] Nucleated RBC Auto Ql (Bld) 0.1 /100{WBC} 0-0.5 [facility] Platelet mean volume Auto (B ld) [Entitic vol]Ordered By: Jusitce Singh on 10-15-2024 Platelet mean volume (Bld) [Entitic vol] Platelet mean volume [Entitic volume] in Blood by Automated count 6.6-10.1 [facility] Platelet mean volume [Entiti c volume] in Blood by Automated countOrdered By: Justice Singh on 10-15-2024 Platelet mean volume (Bld) [Entitic vol] 9.2 fL Normal 6.6-10.1 [facility] Comment on above: Performed By: #### T SH3, A1C WTH eA, CBC, CMP, LIPID #### [facility] [address] Platelets Auto (Bld) [#/Vol] Ordered By: Justice Singh on 10-15-2024 Platelets (Bld) [#/Vol] Platelets [#/volume] in Blood by Automated count 150-450 [facility] Platelets [#/volume] in Bloo d by Automated countOrdered By: Justice Singh on 10-15-2024 Platelets (Bld) [#/Vol] 169 10*3/uL Normal 150-450 [facility] Comment on above: Performed By: #### T SH3, A1C WTH eA, CBC, CMP, LIPID #### [facility] [address] Potassium [Moles/volume] in Serum or PlasmaOrdered By: Justice Singh on 10-15-2024 Potassium [Moles/Vol] Potassium [Moles/v olume] in Serum or Plasma 3.5-5.1 [facility] Potassium [Moles/Vol] 4.6 mmol/L Normal 3.5-5.1 [facility] Comment on above: Performed By: #### T SH3, A1C WTH eA, CBC, CMP, LIPID #### [address] Protein [Mass/volume] in Ser um or PlasmaOrdered By: Justice Singh on 10-15-2024 Protein [Mass/Vol] Protein [Mass/volume ] in Serum or Plasma Low 6.4-8.9 [facility] Protein [Mass/Vol] 5.9 g/dL Low 6.4-8.9 [facility] Comment on above: Performed By: #### T SH3, A1C WTH eA, CBC, CMP, LIPID #### [address] RBC Auto (Bld) [#/Vol]Ordere d By: Justice Singh on 10-15-2024 RBC (Bld) [#/Vol] Erythrocytes [#/volu me] in Blood by Automated count Low 3.90-5.60 [facility] Serum globulin measurement b y calculation (mass/volume)Ordered By: Justice Singh on 10-15-2024 Globulin (S) [Mass/Vol] 2.1 g/dL Normal [facility] Comment on above: Performed By: #### T SH3, A1C WTH eA, CBC, CMP, LIPID #### [facility] [address] Serum or plasma albumin/glob ulin mass ratioOrdered By: Justice Singh on 10-15-2024 Albumin/Globulin [Mass ratio] Serum or plasma albumin/globulin mass ratio [facility] Albumin/Globulin [Mass ratio] 1.8 {ratio} Normal [facility] Comment on above: Performed By: #### T SH3, A1C WTH eA, CBC, CMP, LIPID #### [facility] [address] Serum or plasma anion gap de terminationOrdered By: Justice Singh on 10-15-2024 Anion gap [Moles/Vol] Serum or plasma an ion gap determination 6.0-15.0 [facility] Anion gap [Moles/Vol] 9.5 mmol/L Normal 6.0-15.0 [facility] Comment on above: Performed By: #### T SH3, A1C WTH eA, CBC, CMP, LIPID #### [address] Sodium [Moles/volume] in Ser um or PlasmaOrdered By: Justice Singh on 10-15-2024 Sodium [Moles/Vol] Sodium [Moles/volume ] in Serum or Plasma 136-145 [facility] Sodium [Moles/Vol] 141 mmol/L Normal 136-145 [facility] Comment on above: Performed By: #### T SH3, A1C WTH eA, CBC, CMP, LIPID #### [facility] [address] [place] [address] Urea nitrogen [Mass/volume] in Serum or PlasmaOrdered By: Justice Singh on 10-15-2024 Urea nitrogen [Mass/Vol] Urea nitrogen [Mass/volume] in Serum or Plasma 7-25 [facility] Urea nitrogen [Mass/Vol] 25 mg/dL Normal 7-25 [facility] Comment on above: Performed By: #### T SH3, A1C WTH eA, CBC, CMP, LIPID #### [facility] [address] [place] [address] WBC Auto (Bld) [#/Vol]Ordere d By: Justice Singh on 10-15-2024 WBC (Bld) [#/Vol] Leukocytes [#/volume ] in Blood by Automated count 4.1-10.5 [facility] US aortaon 08-07-2024 US aorta [facility] [address] [place] [id number] Ultrasound Report Signed Patient: Ever Mason MR#: [id number] : 1935 Acct:[id number] Age/Sex: 89 / M ADM Date: 08/07/24 Loc: [facility] Room: Type: [facility] Attending Dr: Gerhard Grissom MD Ordering Provider: Gerhard Grissom MD Date of Service: 08/07/24 US/US aorta: I71.4 Copies to: Gerhard Grissom MD ULTRASOUND OF THE ABDOMINAL AORTA: CLINICAL INFORMATION: 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 COMPARISON : CT scan July 2023 TECHNIQUE AND FINDINGS: Multiple ultrasonographic scans of the abdominal aorta were obtained and show Following measurement were obtained: Proximal height: 2.92 cm width : 2.03 cm Mid height: 3.63 cm width : 3.26 cm Distal height: 7.07 cm width : 7.43 cm Bilateral common iliac arteries measure 1.8 in height and 2.4 in width on the right and 1.9 in height and 1.5 in width on the left US/US aorta IMPRESSION: 7.4 CM INFRARENAL ABDOMINAL 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 WITH NO SIGNIFICANT CHANGE FROM PRIOR STUDY Impression dictated by: Gerhard Grissom M.D.08/07/2024 9:29 AM Dictation Location: [place] [address] Tech: Regla Mishra Transcribed By: ANALI 08/07/24928 Dictated By: Gerhard Grissom MD 08/07/24926 Signed By: 08/07/24928 Normal [facility] A1C with Estimated Average G yuanapollo 07-12-2024 Glucose [Mass/Vol] 163 mg/dL Normal [facility] Comment on above: Result Comment: PERF ORMED BY: [facility] [address] [place] [address] PATHOLOGIST POLYMER CHEMIST ABRAM HOFFMAN M.D. Performed By: #### T SH3, A1C WTH eA, CBC, CMP, LIPID #### [facility] [address] HbA1c (Bld) [Mass fraction] 7.3 % High 4.3-5.6 [facility] Comment on above: Result Comment: Incr eased risk for diabetes: 5.7 - 6.4 diabetes: >6.4 glycemic control for adults with diabetes: <7.0 Performed By: #### T SH3, A1C WTH eA, CBC, CMP, LIPID #### [facility] [address] [address] Alanine aminotransferase [En zymatic activity/volume] in Serum or PlasmaOrdered By: Justice Singh on 07-12-2024 ALT [Catalytic activity/Vol] Alanine aminotransferase [Enzymatic activity/volume] in Serum or Plasma 7-52 [facility] Albumin [Mass/volume] in Ser um or Plasma by Bromocresol green (BCG) dye binding methoOrdered By: Justice Singh on 07-12-2024 Albumin BCG dye [Mass/Vol] Albumin [Mass/volume] in Serum or Plasma by Bromocresol green (BCG) dye binding metho 3.5-5.7 [facility] Alkaline phosphatase [Enzyma tic activity/volume] in Serum or PlasmaOrdered By: Justice Singh on 07-12-2024 ALP [Catalytic activity/Vol] Alkaline phosphatase [Enzymatic activity/volume] in Serum or Plasma 34-104 [facility] Aspartate aminotransferase [ Enzymatic activity/volume] in Serum or PlasmaOrdered By: Justice Singh on 07-12-2024 AST [Catalytic activity/Vol] Aspartate aminotransferase [Enzymatic activity/volume] in Serum or Plasma 13-39 [facility] Basophils Auto (Bld) [#/Vol] Ordered By: Justice Singh on 07-12-2024 Basophils (Bld) [#/Vol] Automated basophil count 0.0-0.2 [facility] Basophils/100 WBC Auto (Bld) Ordered By: Justice Singh on 07-12-2024 Basophils/100 WBC (Bld) Automated basophil % . [facility] Bilirubin.total [Mass/volume ] in Serum or PlasmaOrdered By: Justice Singh on 07-12-2024 Bilirubin [Mass/Vol] Bilirubin.total [Mass/volume] in Serum or Plasma 0.3-1.0 [facility] Blood estimated average gluc ose determination by estimation from glycated hemoglobinOrdered By: Justice Singh on 07-12-2024 Average glucose Estimated from glycated hemoglobin (Bld) [Mass/Vol] Glucose mean value [Mass/volume] in Blood Estimated from glycated hemoglobin [facility] Calcium [Mass/volume] in Ser um or PlasmaOrdered By: Justice Singh on 07-12-2024 Calcium [Mass/Vol] Calcium [Mass/volume ] in Serum or Plasma 8.6-10.3 [facility] Carbon dioxide, total [Moles /volume] in Serum or PlasmaOrdered By: Justice Singh on 07-12-2024 CO2 [Moles/Vol] Carbon dioxide, tota l [Moles/volume] in Serum or Plasma 21.0-31.0 [facility] Chloride [Moles/volume] in S albin or PlasmaOrdered By: Justice Singh on 07-12-2024 Chloride [Moles/Vol] Chloride [Moles/vol ume] in Serum or Plasma High 98-107 [facility] Cholesterol [Mass/volume] in Serum or PlasmaOrdered By: Justice Singh on 07-12-2024 Cholesterol [Mass/Vol] Cholesterol [Mass /volume] in Serum or Plasma Low 140-200 [facility] Comment on above: Chol less than 200 m g/dl low riskChol 201-239 mg/dl borderline riskChol 240 mg/dl and greater high risk Cholesterol in HDL [Mass/vol ume] in Serum or PlasmaOrdered By: Justice Singh on 07-12-2024 Cholesterol in HDL [Mass/Vol] Serum or plasma high density lipoprotein (HDL) cholesterol measurement 23- [facility] Comment on above: HDL CHOL ATP-III CLA SSIFICATION Cardiovascular RiskHDL > or equal to 60 mg/dL LOWHDL < 40 mg/dL HIGH Cholesterol in LDL Calc [Mas s/Vol]Ordered By: Justice Singh on 07-12-2024 Cholesterol in LDL [Mass/Vol] Cholesterol in LDL [Mass/volume] in Serum or Plasma by calculation 0-100 [facility] Comment on above: LDL ATP III CLASSIFI CATIONLDL less than 100 mg/dL OptimalLDL 100-129 mg/dL Near or above optimalLDL 130-159 mg/dL Borderline highLDL 160-189 mg/dL HighLDL greater than 189 mg/dL Very high Cholesterol in VLDL Calc [Ma ss/Vol]Ordered By: Justice Singh on 07-12-2024 Cholesterol in VLDL [Mass/Vol] Cholesterol in VLDL [Mass/volume] in Serum or Plasma by calculation [facility] Complete Blood Count Auto Di ffon 07-12-2024 Basophils (Bld) [#/Vol] 0.1 10*3/uL Normal 0.0-0.2 [facility] Comment on above: Result Comment: PERF ORMED BY: [place] [address] PATHOLOGIST POLYMER CHEMIST ABRAM HOFFMAN M.D. Performed By: #### T SH3, A1C WTH eA, CBC, CMP, LIPID #### [place] [address] [place] Basophils/100 WBC (Bld) 0.9 % Normal . [facility] Comment on above: Performed By: #### T SH3, A1C WTH eA, CBC, CMP, LIPID #### [facility] [address] [place] [address] [place] Eosinophils (Bld) [#/Vol] 0.2 10*3/uL Normal 0.0-0.45 [facility] Comment on above: Performed By: #### T SH3, A1C WTH eA, CBC, CMP, LIPID #### [facility] [address] [place] [address] [place] Eosinophils/100 WBC (Bld) 3.2 % Normal . [facility] Comment on above: Performed By: #### T SH3, A1C WTH eA, CBC, CMP, LIPID #### [place] [address] [place] Erythrocyte distribution width (RBC) [Ratio] 14.3 % Normal 12.0-14.8 [facility] Comment on above: Performed By: #### T SH3, A1C WTH eA, CBC, CMP, LIPID #### [address] Hematocrit (Bld) [Volume fraction] 36.3 % Low 38.8-50.0 [facility] Comment on above: Performed By: #### T SH3, A1C WTH eA, CBC, CMP, LIPID #### [address] Hemoglobin (Bld) [Mass/Vol] 12.2 g/dL Low 13.0-17.0 [facility] Comment on above: Performed By: #### T SH3, A1C WTH eA, CBC, CMP, LIPID #### [address] Lymphocytes (Bld) [#/Vol] 1.5 10*3/uL Normal 1.00-4.8 [facility] Comment on above: Performed By: #### T SH3, A1C WTH eA, CBC, CMP, LIPID #### [address] Lymphocytes/100 WBC (Bld) 25.4 % Normal . [facility] Comment on above: Performed By: #### T SH3, A1C WTH eA, CBC, CMP, LIPID #### [address] MCH (RBC) [Entitic mass] 31.9 pg Normal 27.5-35.2 [facility] Comment on above: Performed By: #### T SH3, A1C WTH eA, CBC, CMP, LIPID #### [address] MCV (RBC) [Entitic vol] 94.8 fL Normal 83.5-101 [facility] Comment on above: Performed By: #### T SH3, A1C WTH eA, CBC, CMP, LIPID #### [address] Mean Corpuscular HGB Conc 33.6 g/dL Normal 32.5-35.6 [facility] Comment on above: Performed By: #### T SH3, A1C WTH eA, CBC, CMP, LIPID #### [place] [address] [place] Monocytes (Bld) [#/Vol] 0.6 10*3/uL Normal 0.0-0.8 [facility] Comment on above: Performed By: #### T SH3, A1C WTH eA, CBC, CMP, LIPID #### [place] [address] [place] Monocytes/100 WBC (Bld) 9.6 % Normal . [facility] Comment on above: Performed By: #### T SH3, A1C WTH eA, CBC, CMP, LIPID #### [address] Neutrophils (Bld) [#/Vol] 3.6 10*3/uL Normal 1.8-7.7 [facility] Comment on above: Performed By: #### T SH3, A1C WTH eA, CBC, CMP, LIPID #### [address] Neutrophils/100 WBC (Bld) 60.9 % Normal . [facility] Comment on above: Performed By: #### T SH3, A1C WTH eA, CBC, CMP, LIPID #### [address] NRBC% 0.1 /100{WBC} Normal 0-0.5 [facility] Comment on above: Performed By: #### T SH3, A1C WTH eA, CBC, CMP, LIPID #### [place] [address] [place] Platelet mean volume (Bld) [Entitic vol] 9.1 fL Normal 6.6-10.1 [facility] Comment on above: Performed By: #### T SH3, A1C WTH eA, CBC, CMP, LIPID #### [place] [address] [place] Platelets (Bld) [#/Vol] 155 10*3/uL Normal 150-450 [facility] Comment on above: Performed By: #### T SH3, A1C WTH eA, CBC, CMP, LIPID #### [facility] [address] RBC (Bld) [#/Vol] 3.83 10*6/uL Low 3.90-5.60 [facility] Comment on above: Performed By: #### T SH3, A1C WTH eA, CBC, CMP, LIPID #### [address] WBC (Bld) [#/Vol] 5.9 10*3/uL Normal 4.1-10.5 [facility] Comment on above: Performed By: #### T SH3, A1C WTH eA, CBC, CMP, LIPID #### [address] Comprehensive Metabolic Pane jose 07-12-2024 Albumin [Mass/Vol] 3.8 g/dL Normal 3.5-5.7 [facility] Comment on above: Performed By: #### T SH3, A1C WTH eA, CBC, CMP, LIPID #### [address] Albumin/Globulin [Mass ratio] 1.7 {ratio} Normal [facility] Comment on above: Performed By: #### T SH3, A1C WTH eA, CBC, CMP, LIPID #### [address] ALP [Catalytic activity/Vol] 99 U/L Normal 34-104 [facility] Comment on above: Performed By: #### T SH3, A1C WTH eA, CBC, CMP, LIPID #### [address] ALT [Catalytic activity/Vol] 15 U/L Normal 7-52 [facility] Comment on above: Performed By: #### T SH3, A1C WTH eA, CBC, CMP, LIPID #### [address] Anion gap [Moles/Vol] 9.3 mmol/L Normal 6.0-15.0 [facility] Comment on above: Performed By: #### T SH3, A1C WTH eA, CBC, CMP, LIPID #### [facility] [address] [place] [address] AST [Catalytic activity/Vol] 18 U/L Normal 13-39 [facility] Comment on above: Performed By: #### T SH3, A1C WTH eA, CBC, CMP, LIPID #### [facility] [address] [place] [address] Bilirubin [Mass/Vol] 0.9 mg/dL Normal 0.3-1.0 [facility] Comment on above: Performed By: #### T SH3, A1C WTH eA, CBC, CMP, LIPID #### [facility] [address] Calcium [Mass/Vol] 9.6 mg/dL Normal 8.6-10.3 [facility] Comment on above: Performed By: #### T SH3, A1C WTH eA, CBC, CMP, LIPID #### [address] Chloride [Moles/Vol] 108 mmol/L High 98-107 [facility] Comment on above: Performed By: #### T SH3, A1C WTH eA, CBC, CMP, LIPID #### [address] CO2 [Moles/Vol] 27.7 mmol/L Normal 21.0-31.0 [facility] Comment on above: Performed By: #### T SH3, A1C WTH eA, CBC, CMP, LIPID #### [address] Creatinine [Mass/Vol] 1.53 mg/dL High 0.70-1.30 [facility] Comment on above: Performed By: #### T SH3, A1C WTH eA, CBC, CMP, LIPID #### [address] Estimated GFR 43.729 mL/Min Normal [facility] Comment on above: Performed By: #### T SH3, A1C WTH eA, CBC, CMP, LIPID #### [facility] [address] Globulin (S) [Mass/Vol] 2.3 g/dL Normal [facility] Comment on above: Performed By: #### T SH3, A1C WTH eA, CBC, CMP, LIPID #### [facility] [address] Glucose [Mass/Vol] 114 mg/dL High 70-100 [facility] Comment on above: Result Comment: [place] Glucose Reference Range is dependent on time and content of last meal. Glucose of more than 200 mg/dL in a nonstressed, ambulatory subject supports the diagnosis of Diabetes Mellitus. ADA recommended reference range Performed By: #### T SH3, A1C WTH eA, CBC, CMP, LIPID #### [facility] [address] Potassium [Moles/Vol] 5.0 mmol/L Normal 3.5-5.1 [facility] Comment on above: Performed By: #### T SH3, A1C WTH eA, CBC, CMP, LIPID #### [facility] [address] Protein [Mass/Vol] 6.1 g/dL Low 6.4-8.9 [facility] Comment on above: Performed By: #### T SH3, A1C WTH eA, CBC, CMP, LIPID #### [facility] [address] [place] [address] [place] Sodium [Moles/Vol] 140 mmol/L Normal 136-145 [facility] Comment on above: Performed By: #### T SH3, A1C WTH eA, CBC, CMP, LIPID #### [facility] [address] [place] [address] [place] Urea nitrogen [Mass/Vol] 29 mg/dL High 7-25 [facility] Comment on above: Performed By: #### T SH3, A1C WTH eA, CBC, CMP, LIPID #### [place] [address] [place] Creatinine [Mass/volume] in Serum or PlasmaOrdered By: Justice Singh on 07-12-2024 Creatinine [Mass/Vol] Creatinine [Mass/v olume] in Serum or Plasma High 0.70-1.30 [facility] Eosinophils Auto (Bld) [#/Vo l]Ordered By: Justice Singh on 07-12-2024 Eosinophils (Bld) [#/Vol] Automated eosinophil count 0.0-0.45 [facility] Eosinophils/100 WBC Auto (Bl d)Ordered By: Justice Singh on 07-12-2024 Eosinophils/100 WBC (Bld) Automated eosinophil % . [facility] Erythrocyte distribution wid th Auto (RBC) [Ratio]Ordered By: Justice Singh on 07-12-2024 Erythrocyte distribution width (RBC) [Ratio] Erythrocyte distribution width [Ratio] by Automated count 12.0-14.8 [facility] Globulin Calc (S) [Mass/Vol] Ordered By: Justice Singh on 07-12-2024 Globulin (S) [Mass/Vol] Serum globulin measurement by calculation (mass/volume) [facility] Glucose [Mass/volume] in Ser um or PlasmaOrdered By: Justice Singh on 07-12-2024 Glucose [Mass/Vol] Glucose [Mass/volume ] in Serum or Plasma High 70-100 [facility] Comment on above: ADA recommended refe rence rangeRandom Glucose Reference Range is dependent on time and content of last meal. Glucose of more than 200 mg/dL in a nonstressed, ambulatory subject supports the diagnosis of Diabetes Mellitus. Hematocrit Auto (Bld) [Volum e fraction]Ordered By: Justice Singh 07-12-2024 Hematocrit (Bld) [Volume fraction] Hematocrit [Volume Fraction] of Blood by Automated count Low 38.8-50.0 [facility] Hemoglobin A1c/Hemoglobin.to henry in BloodOrdered By: Justice Singh on 07-12-2024 HbA1c (Bld) [Mass fraction] Hemoglobin A1c percentage High 4.3-5.6 [facility] Comment on above: Increased risk for d iabetes: 5.7 - 6.4diabetes: >6.4glycemic control for adults with diabetes: <7.0 Hemoglobin [Mass/volume] in BloodOrdered By: Justice Singh on 07-12-2024 Hemoglobin (Bld) [Mass/Vol] Hemoglobin [Mass/volume] in Blood Low 13.0-17.0 [facility] Leukocytes [#/volume] correc yana for nucleated erythrocytes in Blood by Automated counOrdered By: Justice Singh on 07-12-2024 WBC corrected for nucl RBC Auto (Bld) [#/Vol] Leukocytes [#/volume] corrected for nucleated erythrocytes in Blood by Automated coun 4.1-10.5 [facility] Lipid Panelon 07-12-2024 Cholesterol [Mass/Vol] 135 mg/dL Low 140-200 [facility] Comment on above: Result Comment: Chol less than 200 mg/dl low risk Chol 201-239 mg/dl borderline risk Chol 240 mg/dl and greater high risk Performed By: #### T SH3, A1C WTH eA, CBC, CMP, LIPID #### [facility] [address] [place] [id number] [facility] Cholesterol in HDL [Mass/Vol] 54 mg/dL Normal 23-92 [facility] Comment on above: Result Comment: HDL CHOL ATP-III CLASSIFICATION Cardiovascular Risk HDL > or equal to 60 mg/dL LOW HDL < 40 mg/dL HIGH Performed By: #### T SH3, A1C WTH eA, CBC, CMP, LIPID #### [facility] [address] [place] [address] [place] Cholesterol.total/Chol esterol in HDL [Mass ratio] 2.5 {ratio} Normal <5.0 [facility] Comment on above: Performed By: #### T SH3, A1C WTH eA, CBC, CMP, LIPID #### [facility] [address] [place] [address] [place] LDL Cholesterol,Calculated 55 mg/dL Normal 0-100 [facility] Comment on above: Result Comment: LDL ATP III CLASSIFICATION LDL less than 100 mg/dL Optimal LDL 100-129 mg/dL Near or above optimal LDL 130-159 mg/dL Borderline high LDL 160-189 mg/dL High LDL greater than 189 mg/dL Very high Performed By: #### T SH3, A1C WTH eA, CBC, CMP, LIPID #### [facility] [address] [place] [address] [place] Triglyceride w/Reflex 129 mg/dL Normal 0-149 [facility] Comment on above: Result Comment: TRIG ATP III CLASSIFICATION TRIG less than 150 mg/dL Normal TRIG 150-199 mg/dL Borderline high TRIG 200-500 mg/dL High TRIG greater than 500 mg/dL Very high Standard traceable to the Center for Disease Conrtrol and Prevention (CDC) test method. Performed By: #### T SH3, A1C WTH eA, CBC, CMP, LIPID #### [facility] [address] VLDL CHOLESTEROL 25 mg/dL Normal [facility] Comment on above: Performed By: #### T SH3, A1C WTH eA, CBC, CMP, LIPID #### [facility] [address] Lymphocytes Auto (Bld) [#/Vo l]Ordered By: Justice Singh on 07-12-2024 Lymphocytes (Bld) [#/Vol] Lymphocytes [#/volume] in Blood by Automated count 1.00-4.8 [facility] Lymphocytes/100 WBC Auto (Bl d)Ordered By: Justice Singh on 07-12-2024 Lymphocytes/100 WBC (Bld) Lymphocytes/100 leukocytes in Blood by Automated count . [facility] MCH Auto (RBC) [Entitic mass ]Ordered By: Justice Singh on 07-12-2024 MCH (RBC) [Entitic mass] MCH [Entitic mass] by Automated count 27.5-35.2 [facility] MCHC Auto (RBC) [Mass/Vol]Or dered By: Justice Singh on 07-12-2024 MCHC (RBC) [Mass/Vol] MCHC [Mass/volume] by Automated count 32.5-35.6 [facility] MCV Auto (RBC) [Entitic vol] Ordered By: Justice Singh on 07-12-2024 MCV (RBC) [Entitic vol] MCV [Entitic volume] by Automated count 83.5-101 [facility] Monocytes Auto (Bld) [#/Vol] Ordered By: Justice Singh on 07-12-2024 Monocytes (Bld) [#/Vol] Automated blood monocyte count 0.0-0.8 [facility] Monocytes/100 WBC Auto (Bld) Ordered By: Justice Singh on 07-12-2024 Monocytes/100 WBC (Bld) Automated monocyte % . [facility] Neutrophils Auto (Bld) [#/Vo l]Ordered By: Justice Singh on 07-12-2024 Neutrophils (Bld) [#/Vol] Neutrophils [#/volume] in Blood by Automated count 1.8-7.7 [facility] Neutrophils/100 WBC Auto (Bl d)Ordered By: Justice Singh on 07-12-2024 Neutrophils/100 WBC (Bld) Automated neutrophil % . [facility] No Panel InformationOrdered By: Justice Singh on 07-12-2024 Estimated GFR (CKD-EPI) 43.729 mL/Min [facility] Creatinine Clearance (Chem N/A [facility] Nucleated erythrocytes [Pres ence] in Blood by Automated countOrdered By: Justice Singh on 07-12-2024 Nucleated RBC Auto Ql (Bld) Nucleated erythrocytes [Presence] in Blood by Automated count 0-0.5 [facility] Platelet mean volume Auto (B ld) [Entitic vol]Ordered By: Justice Singh on 07-12-2024 Platelet mean volume (Bld) [Entitic vol] Platelet mean volume [Entitic volume] in Blood by Automated count 6.6-10.1 [facility] Platelets Auto (Bld) [#/Vol] Ordered By: Justice Singh on 07-12-2024 Platelets (Bld) [#/Vol] Platelets [#/volume] in Blood by Automated count 150-450 [facility] Potassium [Moles/volume] in Serum or PlasmaOrdered By: Justice Singh on 07-12-2024 Potassium [Moles/Vol] Potassium [Moles/v olume] in Serum or Plasma 3.5-5.1 [facility] Protein [Mass/volume] in Ser um or PlasmaOrdered By: Justice Singh on 07-12-2024 Protein [Mass/Vol] Protein [Mass/volume ] in Serum or Plasma Low 6.4-8.9 [facility] RBC Auto (Bld) [#/Vol]Ordere d By: Justice Singh on 07-12-2024 RBC (Bld) [#/Vol] Erythrocytes [#/volu me] in Blood by Automated count Low 3.90-5.60 [facility] Serum or plasma albumin/glob ulin mass ratioOrdered By: Justice Singh on 07-12-2024 Albumin/Globulin [Mass ratio] Serum or plasma albumin/globulin mass ratio [facility] Serum or plasma anion gap de terminationOrdered By: Justice Singh on 07-12-2024 Anion gap [Moles/Vol] Serum or plasma an ion gap determination 6.0-15.0 [facility] Serum or plasma total choles terol/high density lipoprotein (HDL) cholesterol mass ratOrdered By: Justice Singh on 07-12-2024 Cholesterol.total/Chol esterol in HDL [Mass ratio] Serum or plasma total cholesterol/high density lipoprotein (HDL) cholesterol mass rat <5.0 [facility] Sodium [Moles/volume] in Ser um or PlasmaOrdered By: Justice Singh on 07-12-2024 Sodium [Moles/Vol] Sodium [Moles/volume ] in Serum or Plasma 136-145 [facility] Thyroid Stimulating Hormoneo n 07-12-2024 TSH Qn 4.52 m[IU]/L Normal 0.45-5.33 [facility] Comment on above: Result Comment: PERF ORMED BY: [place] [address] PATHOLOGIST POLYMER CHEMIST ABRAM HOFFMAN M.D. Performed By: #### T SH3, A1C WTH eA, CBC, CMP, LIPID #### [facility] [address] [place] [address] Thyrotropin [Units/volume] i n Serum or PlasmaOrdered By: Justice Singh on 07-12-2024 TSH Qn Thyrotropin [Units/volume] in Serum or Plasma 0.45-5.33 [facility] Triglyceride [Mass/volume] i n Serum or PlasmaOrdered By: Justice Singh on 07-12-2024 Triglyceride [Mass/Vol] Triglyceride [Mass/volume] in Serum or Plasma 0-149 [facility] Comment on above: TRIG ATP III CLASSIF ICATIONTRIG less than 150 mg/dL NormalTRIG 150-199 mg/dL Borderline highTRIG 200-500 mg/dL High TRIG greater than 500 mg/dL Very highStandard traceable to the Center for Disease Conrtrol and Prevention (CDC) test method. Urea nitrogen [Mass/volume] in Serum or PlasmaOrdered By: Justice Singh on 07-12-2024 Urea nitrogen [Mass/Vol] Urea nitrogen [Mass/volume] in Serum or Plasma High 7-25 [facility] WBC Auto (Bld) [#/Vol]Ordere d By: Justice Singh on 07-12-2024 WBC (Bld) [#/Vol] Leukocytes [#/volume ] in Blood by Automated count 4.1-10.5 [facility] CNPNon 06-15-2024 CNPN Telephone (CATHMN) ----- EVER MASON ([id number]) 1935 M Date Time Provider Department 06/15/24 MIGUELANGEL MORSE During your visit today, we recorded the following information about you: Krystal Hernandez 06/15/2024 4:24 PM Signed Called [facility] to request cath films 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 - SYNTHROID 50 mcg tablet Take 1 tablet by mouth every morning. - Vit B Comp and C-Vit E-FA-Briana-Zn 0.4 mg tab Take 1 capsule by mouth once daily. - antiox #8/om3/dha/epa/lut/zeax (PRESERVISION AREDS 2, OMEGA-3, ORAL) Take 1 tablet by mouth once daily. - carvedilol (COREG) 3.125 mg tablet Take 3.125 mg by mouth two times a day with meals. - glipiZIDE (GLUCOTROL XL) 5 mg 24 hr tablet Take 5 mg by mouth daily at bedtime. - lisinopril (ZESTRIL) 5 mg tablet Take 5 mg by mouth once daily. - metFORMIN (GLUCOPHAGE) 500 mg tablet Take 500 mg by mouth two times a day. - montelukast (SINGULAIR) 10 mg tablet Take 10 mg by mouth daily at bedtime. - isosorbide mononitrate ER (IMDUR) 60 mg 24 hr tablet Take 1 tablet by mouth once daily. - atorvastatin (LIPITOR) 40 mg tablet Take 40 mg by mouth daily at bedtime. - nitroglycerin sublingual (NITROQUICK) 0.4 mg SL tablet Dissolve 0.4 mg under the tongue every 5 minutes as needed for chest pain. - ranolazine ER (RANEXA) 500 mg 12 hr tablet Take 1 tablet by mouth two times a day. Problem List As Of Date: 06/15/2024 (None) Encounter Status:Closed by KRYSTAL HERNANDEZ on 06/15/24 [facility] CNOVon 06-11-2024 CNOV Office Visit (CATHMN ) ----- EVER MASON ([id number]) 1935 M Date Time Provider Department 06/11/24 12:45 PM MIGUELANGEL MORSE CATHALMA During your visit today, we recorded the following information about you: Pulse Respiration Blood pressure Weight 59/minute 18/minute 169/64 72.6 kg Height 1.753 m Miguelangel Morse MD 06/11/2024 2:56 PM Signed [facility] [place] Department of Cardiovascular Medicine SECTION OF INTERVENTIONAL CARDIOLOGY OUTPATIENT VISIT DATE June 11, 2024 OUTPATIENT VISIT TYPE NEW PRIMARY CARE PHYSICIAN: Justice Singh DO REFERRING PHYSICIAN: WINNIE MARTIN [address] [place] [id number] CHIEF COMPLAINT: Fatigue HISTORY OF PRESENT ILLNESS: Mr. Mason is an 88 year old male who presents today for evaluation of fatigue in the setting of CAD. He has past medical history of: - CAD s/p PCI mid LAD. - hypertension - hyperlipidemia - type 2 diabetes mellitus Patient has been complaining of fatigue on exertion with activities of daily living. He had a nuclear stress test done 07/25/2023 showing minimal inferior wall reversible ischemia followed by a C 2023 showed triple vessel disease. He was then evaluated by CTS and interventional cardiology at and both CABG and PCI were deferred due to high risk with minimal symptoms, and he was then treated medically. He is presenting today for a second opinion regarding possibility for intervention. Of note, his Imdur was recently increased from 30 to 60 mg, and patient had noticed significant improvement in his symptoms, however he still has residual fatigue on exertion. PAST MEDICAL HISTORY Diagnosis Date CAD (coronary artery disease) COVID 2020 hospitalized for 2 weeks HLD (hyperlipidemia) HTN (hypertension) PAST SURGICAL HISTORY Procedure Laterality Date PAST SURGICAL HISTORY OF AAA surgery *unsure of date* [facility] PCI/STENT 2008 4 stents in [place], [place] PCI/STENT 2014 2 stents in [place] TONSILLECTOMY AND ADENOIDECTOMY Social History Tobacco Use Smoking status: Former Types: Cigarettes Smokeless tobacco: Never Tobacco comments: Quit smoking in 8. Smoked 22 years. Substance Use Topics Alcohol use: Not Currently Drug use: Not Currently FAMILY HISTORY Problem Relation Age of Onset Heart Attack Father in his 60s Diabetes Father ALLERGIES No Known Allergies MEDICATIONS: aspirin, enteric coated (ASPIRIN, ENTERIC COATED) 81 mg EC tablet Take 81 mg by mouth once daily. SYNTHROID 50 mcg tablet Take 1 tablet by mouth every morning. Vit B Comp and C-Vit E-FA-Briana-Zn 0.4 mg tab Take 1 capsule by mouth once daily. antiox #8/om3/dha/epa/lut/zeax (PRESERVISION AREDS 2, OMEGA-3, ORAL) Take 1 tablet by mouth once daily. carvedilol (COREG) 3.125 mg tablet Take 3.125 mg by mouth two times a day with meals. glipiZIDE (GLUCOTROL XL) 5 mg 24 hr tablet Take 5 mg by mouth daily at bedtime. lisinopril (ZESTRIL) 5 mg tablet Take 5 mg by mouth once daily. metFORMIN (GLUCOPHAGE) 500 mg tablet Take 500 mg by mouth two times a day. montelukast (SINGULAIR) 10 mg tablet Take 10 mg by mouth daily at bedtime. isosorbide mononitrate ER (IMDUR) 60 mg 24 hr tablet Take 1 tablet by mouth once daily. atorvastatin (LIPITOR) 40 mg tablet Take 40 mg by mouth daily at bedtime. nitroglycerin sublingual (NITROQUICK) 0.4 mg SL tablet Dissolve 0.4 mg under the tongue every 5 minutes as needed for chest pain. REVIEW OF SYSTEMS: GENERAL: no fever, no chills, and no change in weight HEENT: no headaches, no hearing loss, no difficulty swallowing, no visual changes, no nose bleeds SKIN: no rashes, no lesions, and no ulcers RESPIRATORY: SEE HPI CARDIOVASCULAR: See HPI GASTROINTESTINAL: no abdominal pain, no nausea, no vomiting, no difficulty or painful swallowing, and no melanotic stools GENITOURINARY: no dysuria, no frequency, and no nocturia MUSCULOSKELETAL: no joint pain, no joint swelling, no muscle pain or myalgias, and no pain with walking NEUROLOGIC: no numbness, no tingling, and no sensation of pins and needles HEMATOLOGY: no bruising easily, no prolonged bleeding, no anemia, and no cancer ENDOCRINE: no cold or heat intolerance, no polyuria, no polydipsia, no goiter, no diabetes, and no thyroid disease PSYCH: no sleep disturbance, no mood disorders, and no recent psychosocial stressors PHYSICAL EXAMINATION: BP 169/64 Pulse 59 Resp 18 Ht 5' 9 (1.75m) Wt 160 lb (72.6kg) SpO2 100[RA]% BMI 23.63 kg/(m2). Home BP - 120-130/80's mmHg Gen: NAD. Pleasant affect. HEENT: JVP 7 cm at 45 degrees upright. EOMI. Chest: CTAB without w/r/r. Normal effort. CV: Normal S1, S2. No murmurs appreciated Abd: Non-distended. Ext: No BLE edema. Neuro: Motor exam grossly normal CARDIOVASCULAR MEDICINE TEST (more content not included)... Normal [facility] ECG COMPLETEon 06-11-2024 ECG COMPLETE Ventricular Rate : 5 3 BPM Atrial Rate : 53 BPM P-R Interval : 166 ms QRS Duration : 90 ms Q-T Interval : 414 ms QTC Calculation(Bazett) : 388 ms Calculated P [place] : 50 degrees Calculated R [place] : -3 degrees Calculated T [place] : 18 degrees SINUS BRADYCARDIA NONSPECIFIC ST ABNORMALITY ABNORMAL ECG Confirmed by LESLIE CHEN MD ([id number]) on 06/26/2024 2:39:51 PM NAME : EVER MASON PID : [id number] : 1935 Gender : Male Race : ORD : [id number] Procedure Date : Jun 11 2024 11:46:09 Edit Date : Jun 26 2024 14:39:52 Diagnosis: SINUS BRADYCARDIA NONSPECIFIC ST ABNORMALITY ABNORMAL ECG Confirmed by LESLIE CHEN MD ([id number]) on 06/26/2024 2:39:51 PM Test Reason : Location : 314 : J14 Overread By : LESLIE CHEN MD Edited By : LESLIE CHEN MD Referred By : MIGUELANGEL MORSE Acquired by : JEFF TANG [facility] HbA1c HPLC (Bld) [Mass fract ion]on 04-17-2024 HbA1c (Bld) [Mass fraction] Hemoglobin A1c/Hemoglobin.total in Blood by HPLC [facility] CNPNon 04-13-2024 CNPN Telephone (CATHMN) ----- EVER MASON ([id number]) 1935 M Date Time Provider Department 04/13/24 MIGUELANGEL MORSE CATHPA During your visit today, we recorded the following information about you: Krystal Hernandez 04/13/2024 11:35 AM Signed Received call from patient asking office to mail appt reminder to patient. Patient is schedueld for a new patient visit, will send new patient repacker Sent via [employer] trk# [phone] Allergies As of Date: 04/13/2024 (Not on File) Date Reviewed: Never Reviewed Reason for Visit: Appointment [186] Problem List As Of Date: 04/13/2024 (None) Encounter Status:Closed by KRYSTAL HERNANDEZ on 04/13/24 [facility] CNCOon 01-25-2024 CNCO Letter Text [facility] CNPNon 01-25-2024 CNPN Telephone (CARD P) ----- EVER MASON ([id number]) 1935 M Date Time Provider Department 01/25/24 DINAH WORTHY CARD P During your visit today, we recorded the following information about you: Allergies As of Date: 01/25/2024 (Not on File) Date Reviewed: Never Reviewed Reason for Visit: Appointment [186] Cmt: New patient letter sent via mail Problem List As Of Date: 01/25/2024 (None) Encounter Status:Closed by KENDALL BENNETT on 01/25/24 [facility] Basophils Auto (Bld) [#/Vol] Ordered By: Ashley Griffiths on 01-18-2024 Basophils (Bld) [#/Vol] 0.0 10*3/uL 0.0-0.2 [facility] Basophils (Bld) [#/Vol] Automated basophil count 0.0-0.2 [facility] Basophils/100 WBC Auto (Bld) Ordered By: Ashley Griffiths on 01-18-2024 Basophils/100 WBC (Bld) 0.5 % . [facility] Basophils/100 WBC (Bld) Automated basophil % . [facility] Calcium [Mass/volume] in Ser um or PlasmaOrdered By: Ashley Griffiths on 01-18-2024 Calcium [Mass/Vol] 8.8 mg/dL 8.6-10.3 [facility] Calcium [Mass/Vol] Calcium [Mass/volume ] in Serum or Plasma 8.6-10.3 [facility] Carbon dioxide, total [Moles /volume] in Serum or PlasmaOrdered By: Ashley Griffiths on 01-18-2024 CO2 [Moles/Vol] 24.7 mmol/L 21.0-31.0 [facility] CO2 [Moles/Vol] Carbon dioxide, tota l [Moles/volume] in Serum or Plasma 21.0-31.0 [facility] Chloride [Moles/volume] in S albin or PlasmaOrdered By: Ashley Griffiths on 01-18-2024 Chloride [Moles/Vol] 105 mmol/L 98-107 [facility] Chloride [Moles/Vol] Chloride [Moles/vol ume] in Serum or Plasma 98-107 [facility] Creatinine [Mass/volume] in Serum or PlasmaOrdered By: Ashley Griffiths on 01-18-2024 Creatinine [Mass/Vol] 1.19 mg/dL 0.70-1.30 [facility] Creatinine [Mass/Vol] Creatinine [Mass/v olume] in Serum or Plasma 0.70-1.30 [facility] Eosinophils Auto (Bld) [#/Vo l]Ordered By: Ashley Griffiths on 01-18-2024 Eosinophils (Bld) [#/Vol] 0.0 10*3/uL 0.0-0.45 [facility] Eosinophils (Bld) [#/Vol] Automated eosinophil count 0.0-0.45 [facility] Eosinophils/100 WBC Auto (Bl d)Ordered By: Ashley Griffiths on 01-18-2024 Eosinophils/100 WBC (Bld) 0.4 % . [facility] Eosinophils/100 WBC (Bld) Automated eosinophil % . [facility] Erythrocyte distribution wid th Auto (RBC) [Ratio]Ordered By: Ashley Griffiths on 01-18-2024 Erythrocyte distribution width (RBC) [Ratio] 13.3 % 12.0-14.8 [facility] Erythrocyte distribution width (RBC) [Ratio] Erythrocyte distribution width [Ratio] by Automated count 12.0-14.8 [facility] Glucose Glucometer (BldC) [M ass/Vol]Ordered By: Ashley Griffiths on 01-18-2024 Glucose [Mass/Vol] 158 mg/dL [facility] Comment on above: Random Glucose Refer ence Range is dependent on time and content of last meal. Glucose of more than 200 mg/dL in a nonstressed, ambulatory subject supports the diagnosis of Diabetes Mellitus. Glucose [Mass/Vol] Capillary blood gluc ose measurement by glucometer (mass/volume) [facility] Comment on above: Random Glucose Refer ence Range is dependent on time and content of last meal. Glucose of more than 200 mg/dL in a nonstressed, ambulatory subject supports the diagnosis of Diabetes Mellitus. Glucose [Mass/volume] in Ser um or PlasmaOrdered By: Ashley Griffiths on 01-18-2024 Glucose [Mass/Vol] 201 mg/dL High 70-100 [facility] Comment on above: ADA recommended refe rence rangeRandom Glucose Reference Range is dependent on time and content of last meal. Glucose of more than 200 mg/dL in a nonstressed, ambulatory subject supports the diagnosis of Diabetes Mellitus. Glucose [Mass/Vol] Glucose [Mass/volume ] in Serum or Plasma High 70-100 [facility] Comment on above: ADA recommended refe rence rangeRandom Glucose Reference Range is dependent on time and content of last meal. Glucose of more than 200 mg/dL in a nonstressed, ambulatory subject supports the diagnosis of Diabetes Mellitus. Hematocrit Auto (Bld) [Volum e fraction]Ordered By: Ashley Griffiths on 01-18-2024 Hematocrit (Bld) [Volume fraction] 35.2 % Low 38.8-50.0 [facility] Hematocrit (Bld) [Volume fraction] Hematocrit [Volume Fraction] of Blood by Automated count Low 38.8-50.0 [facility] Hemoglobin [Mass/volume] in BloodOrdered By: Ashley Griffiths on 01-18-2024 Hemoglobin (Bld) [Mass/Vol] 11.9 g/dL Low 13.0-17.0 [facility] Hemoglobin (Bld) [Mass/Vol] Hemoglobin [Mass/volume] in Blood Low 13.0-17.0 [facility] Leukocytes [#/volume] correc yana for nucleated erythrocytes in Blood by Automated counOrdered By: Ashley Griffiths on 01-18-2024 WBC corrected for nucl RBC Auto (Bld) [#/Vol] 7.4 10*3/uL 4.1-10.5 [facility] WBC corrected for nucl RBC Auto (Bld) [#/Vol] Leukocytes [#/volume] corrected for nucleated erythrocytes in Blood by Automated coun 4.1-10.5 [facility] Lymphocytes Auto (Bld) [#/Vo l]Ordered By: Ashley Griffiths on 01-18-2024 Lymphocytes (Bld) [#/Vol] 1.0 10*3/uL 1.00-4.8 [facility] Lymphocytes (Bld) [#/Vol] Lymphocytes [#/volume] in Blood by Automated count 1.00-4.8 [facility] Lymphocytes/100 WBC Auto (Bl d)Ordered By: Ashley Griffiths on 01-18-2024 Lymphocytes/100 WBC (Bld) 13.8 % . [facility] Lymphocytes/100 WBC (Bld) Lymphocytes/100 leukocytes in Blood by Automated count . [facility] MCH Auto (RBC) [Entitic mass ]Ordered By: Ashley Griffiths on 01-18-2024 MCH (RBC) [Entitic mass] 32.0 pg 27.5-35.2 [facility] MCH (RBC) [Entitic mass] MCH [Entitic mass] by Automated count 27.5-35.2 [facility] MCHC Auto (RBC) [Mass/Vol]Or dered By: Ashley Griffiths on 01-18-2024 MCHC (RBC) [Mass/Vol] 33.9 g/dL 32.5-35.6 [facility] MCHC (RBC) [Mass/Vol] MCHC [Mass/volume] by Automated count 32.5-35.6 [facility] MCV Auto (RBC) [Entitic vol] Ordered By: Ashley Griffiths on 01-18-2024 MCV (RBC) [Entitic vol] 94.2 fL 83.5-101 [facility] MCV (RBC) [Entitic vol] MCV [Entitic volume] by Automated count 83.5-101 [facility] Monocytes Auto (Bld) [#/Vol] Ordered By: Ashley Griffiths on 01-18-2024 Monocytes (Bld) [#/Vol] 0.9 10*3/uL High 0.0-0.8 [facility] Monocytes (Bld) [#/Vol] Automated blood monocyte count High 0.0-0.8 [facility] Monocytes/100 WBC Auto (Bld) Ordered By: Ashley Griffiths on 01-18-2024 Monocytes/100 WBC (Bld) 12.5 % . [facility] Monocytes/100 WBC (Bld) Automated monocyte % . [facility] Neutrophils Auto (Bld) [#/Vo l]Ordered By: Ashley Griffiths on 01-18-2024 Neutrophils (Bld) [#/Vol] 5.4 10*3/uL 1.8-7.7 [facility] Neutrophils (Bld) [#/Vol] Neutrophils [#/volume] in Blood by Automated count 1.8-7.7 [facility] Neutrophils/100 WBC Auto (Bl d)Ordered By: Ashley Griffiths on 01-18-2024 Neutrophils/100 WBC (Bld) 72.8 % . [facility] Neutrophils/100 WBC (Bld) Automated neutrophil % . [facility] No Panel InformationOrdered By: Ashley Griffiths on 01-18-2024 Estimated GFR (CKD-EPI) 59.120 mL/Min [facility] Creatinine Clearance (Chem 43.73 [facility] Nucleated erythrocytes [Pres ence] in Blood by Automated countOrdered By: Ashley Griffiths on 01-18-2024 Nucleated RBC Auto Ql (Bld) 0.1 /100{WBC} 0-0.5 [facility] Nucleated RBC Auto Ql (Bld) Nucleated erythrocytes [Presence] in Blood by Automated count 0-0.5 [facility] Platelet mean volume Auto (B ld) [Entitic vol]Ordered By: Ashley Griffiths on 01-18-2024 Platelet mean volume (Bld) [Entitic vol] 8.6 fL 6.6-10.1 [facility] Platelet mean volume (Bld) [Entitic vol] Platelet mean volume [Entitic volume] in Blood by Automated count 6.6-10.1 [facility] Platelets Auto (Bld) [#/Vol] Ordered By: Ashley Griffiths on 01-18-2024 Platelets (Bld) [#/Vol] 154 10*3/uL 150-450 [facility] Platelets (Bld) [#/Vol] Platelets [#/volume] in Blood by Automated count 150-450 [facility] Potassium [Moles/volume] in Serum or PlasmaOrdered By: Ashley Griffiths on 01-18-2024 Potassium [Moles/Vol] 4.1 mmol/L 3.5-5.1 [facility] Potassium [Moles/Vol] Potassium [Moles/v olume] in Serum or Plasma 3.5-5.1 [facility] RBC Auto (Bld) [#/Vol]Ordere d By: Ashley Griffiths on 01-18-2024 RBC (Bld) [#/Vol] 3.74 10*6/uL Low 3.90-5.60 [facility] RBC (Bld) [#/Vol] Erythrocytes [#/volu me] in Blood by Automated count Low 3.90-5.60 [facility] Serum or plasma anion gap de terminationOrdered By: Ashley Griffiths on 01-18-2024 Anion gap [Moles/Vol] 11.4 mmol/L 6.0-15.0 [facility] Anion gap [Moles/Vol] Serum or plasma an ion gap determination 6.0-15.0 [facility] Sodium [Moles/volume] in Ser um or PlasmaOrdered By: Ashley Griffiths on 01-18-2024 Sodium [Moles/Vol] 137 mmol/L 136-145 [facility] Sodium [Moles/Vol] Sodium [Moles/volume ] in Serum or Plasma 136-145 [facility] Troponin I.cardiac [Mass/vol ume] in Serum or Plasma by Detection limit <= 0.01 ng/Ordered By: Ashley Griffiths on 01-18-2024 Troponin I.cardiac DL <= 0.01 ng/mL [Mass/Vol] 9.0 pg/mL 0.0-20.0 [facility] Troponin I.cardiac DL <= 0.01 ng/mL [Mass/Vol] Troponin I.cardiac [Mass/volume] in Serum or Plasma by Detection limit <= 0.01 ng/ 0.0-20.0 [facility] Urea nitrogen [Mass/volume] in Serum or PlasmaOrdered By: Ashley Griffiths on 01-18-2024 Urea nitrogen [Mass/Vol] 22 mg/dL 12-07 [facility] Urea nitrogen [Mass/Vol] Urea nitrogen [Mass/volume] in Serum or Plasma 12-07 [facility] WBC Auto (Bld) [#/Vol]Ordere d By: Ashley Griffiths on 01-18-2024 WBC (Bld) [#/Vol] 7.4 10*3/uL 4.1-10.5 [facility] WBC (Bld) [#/Vol] Leukocytes [#/volume ] in Blood by Automated count 4.1-10.5 [facility] Alanine aminotransferase [En zymatic activity/volume] in Serum or PlasmaOrdered By: Carlene Booker on 01-17-2024 ALT [Catalytic activity/Vol] 17 U/L [facility] ALT [Catalytic activity/Vol] Alanine aminotransferase [Enzymatic activity/volume] in Serum or Plasma [facility] Albumin [Mass/volume] in Ser um or Plasma by Bromocresol green (BCG) dye binding methoOrdered By: Carlene Booker on 01-17-2024 Albumin BCG dye [Mass/Vol] 4.0 g/dL 3.5-5.7 [facility] Albumin BCG dye [Mass/Vol] Albumin [Mass/volume] in Serum or Plasma by Bromocresol green (BCG) dye binding metho 3.5-5.7 [facility] Alkaline phosphatase [Enzyma tic activity/volume] in Serum or PlasmaOrdered By: Carlene Booker on 01-17-2024 ALP [Catalytic activity/Vol] 95 U/L 104 [facility] ALP [Catalytic activity/Vol] Alkaline phosphatase [Enzymatic activity/volume] in Serum or Plasma 104 [facility] Aspartate aminotransferase [ Enzymatic activity/volume] in Serum or PlasmaOrdered By: Carlene Booker on 01-17-2024 AST [Catalytic activity/Vol] 22 U/L [facility] AST [Catalytic activity/Vol] Aspartate aminotransferase [Enzymatic activity/volume] in Serum or Plasma [facility] Basophils Auto (Bld) [#/Vol] Ordered By: Carlene Booker on 01-17-2024 Basophils (Bld) [#/Vol] 0.1 10*3/uL 0.0-0.2 [facility] Basophils/100 WBC Auto (Bld) Ordered By: Carlene Booker on 01-17-2024 Basophils/100 WBC (Bld) 0.5 % . [facility] Bilirubin.total [Mass/volume ] in Serum or PlasmaOrdered By: Carlene Booker on 01-17-2024 Bilirubin [Mass/Vol] 0.8 mg/dL 0.3-1.0 [facility] Bilirubin [Mass/Vol] Bilirubin.total [Mass/volume] in Serum or Plasma 0.3-1.0 [facility] Calcium [Mass/volume] in Ser um or PlasmaOrdered By: Carlene Booker on 01-17-2024 Calcium [Mass/Vol] 9.4 mg/dL 8.6-10.3 [facility] Carbon dioxide, total [Moles /volume] in Serum or PlasmaOrdered By: Carlene Booker on 01-17-2024 CO2 [Moles/Vol] 21.8 mmol/L 21.0-31.0 [facility] Chloride [Moles/volume] in S albin or PlasmaOrdered By: Carlene Booker on 01-17-2024 Chloride [Moles/Vol] 104 mmol/L 98-107 [facility] Creatinine [Mass/volume] in Serum or PlasmaOrdered By: Carlene Booker on 01-17-2024 Creatinine [Mass/Vol] 1.30 mg/dL 0.70-1.30 [facility] Eosinophils Auto (Bld) [#/Vo l]Ordered By: Carlene Booker on 01-17-2024 Eosinophils (Bld) [#/Vol] 0.1 10*3/uL 0.0-0.45 [facility] Eosinophils/100 WBC Auto (Bl d)Ordered By: Carlene Booker on 01-17-2024 Eosinophils/100 WBC (Bld) 0.7 % . [facility] Erythrocyte distribution wid th Auto (RBC) [Ratio]Ordered By: Carlene Booker on 01-17-2024 Erythrocyte distribution width (RBC) [Ratio] 13.7 % 12.0-14.8 [facility] Globulin Calc (S) [Mass/Vol] Ordered By: Carlene oBoker on 01-17-2024 Globulin (S) [Mass/Vol] 3.3 g/dL [facility] Globulin (S) [Mass/Vol] Serum globulin measurement by calculation (mass/volume) [facility] Glucose [Mass/volume] in Ser um or PlasmaOrdered By: Carlene Booker on 01-17-2024 Glucose [Mass/Vol] 230 mg/dL High 70-100 [facility] Comment on above: ADA recommended refe rence rangeRandom Glucose Reference Range is dependent on time and content of last meal. Glucose of more than 200 mg/dL in a nonstressed, ambulatory subject supports the diagnosis of Diabetes Mellitus. Hematocrit Auto (Bld) [Volum e fraction]Ordered By: Carlene Booker on 01-17-2024 Hematocrit (Bld) [Volume fraction] 38.8 % 38.8-50.0 [facility] Hemoglobin [Mass/volume] in BloodOrdered By: Carlene Booker on 01-17-2024 Hemoglobin (Bld) [Mass/Vol] 13.3 g/dL 13.0-17.0 [facility] Leukocytes [#/volume] correc yana for nucleated erythrocytes in Blood by Automated counOrdered By: Carlene Booker on 01-17-2024 WBC corrected for nucl RBC Auto (Bld) [#/Vol] 10.1 10*3/uL 4.1-10.5 [facility] Lipase [Enzymatic activity/v olume] in Serum or PlasmaOrdered By: Carlene Booker on 01-17-2024 Lipase [Catalytic activity/Vol] 70.0 U/L 11.0-82.0 [facility] Lipase [Catalytic activity/Vol] Lipase [Enzymatic activity/volume] in Serum or Plasma 11.0-82.0 [facility] Lymphocytes Auto (Bld) [#/Vo l]Ordered By: Carlene Booker on 01-17-2024 Lymphocytes (Bld) [#/Vol] 1.1 10*3/uL 1.00-4.8 [facility] Lymphocytes/100 WBC Auto (Bl d)Ordered By: Carlene Booker on 01-17-2024 Lymphocytes/100 WBC (Bld) 11.0 % . [facility] MCH Auto (RBC) [Entitic mass ]Ordered By: Carlene Booker on 01-17-2024 MCH (RBC) [Entitic mass] 31.9 pg 27.5-35.2 [facility] MCHC Auto (RBC) [Mass/Vol]Or dered By: Carlene Booker on 01-17-2024 MCHC (RBC) [Mass/Vol] 34.2 g/dL 32.5-35.6 [facility] MCV Auto (RBC) [Entitic vol] Ordered By: Carlene Booker on 01-17-2024 MCV (RBC) [Entitic vol] 93.3 fL 83.5-101 [facility] Magnesium [Mass/volume] in S albin or PlasmaOrdered By: Carlene Booker on 01-17-2024 Magnesium [Mass/Vol] 1.5 mg/dL Low 1.9-2.7 [facility] Magnesium [Mass/Vol] Magnesium [Mass/vol ume] in Serum or Plasma Low 1.9-2.7 [facility] Monocyte distribution width [Entitic volume] in Blood by AutomatedOrdered By: Carlene Booker on 01-17-2024 Monocyte distribution width Auto (Bld) [Entitic vol] 19.78 % 0.00-20.00 [facility] Monocyte distribution width Auto (Bld) [Entitic vol] Monocyte distribution width [Entitic volume] in Blood by Automated 0.00-20.00 [facility] Monocytes Auto (Bld) [#/Vol] Ordered By: Carlene Booker on 01-17-2024 Monocytes (Bld) [#/Vol] 1.2 10*3/uL High 0.0-0.8 [facility] Monocytes/100 WBC Auto (Bld) Ordered By: Carlene Booker on 01-17-2024 Monocytes/100 WBC (Bld) 12.1 % . [facility] Neutrophils Auto (Bld) [#/Vo l]Ordered By: Carlene Booker on 01-17-2024 Neutrophils (Bld) [#/Vol] 7.7 10*3/uL 1.8-7.7 [facility] Neutrophils/100 WBC Auto (Bl d)Ordered By: Carlene Booker on 01-17-2024 Neutrophils/100 WBC (Bld) 75.7 % . [facility] No Panel InformationOrdered By: Carlene Booker on 01-17-2024 Estimated GFR (CKD-EPI) 53.169 mL/Min [facility] Creatinine Clearance (Chem 40.03 [facility] Nucleated erythrocytes [Pres ence] in Blood by Automated countOrdered By: Carlene Booker on 01-17-2024 Nucleated RBC Auto Ql (Bld) 0.0 /100{WBC} 0-0.5 [facility] Platelet mean volume Auto (B ld) [Entitic vol]Ordered By: Carlene Booker on 01-17-2024 Platelet mean volume (Bld) [Entitic vol] 8.6 fL 6.6-10.1 [facility] Platelets Auto (Bld) [#/Vol] Ordered By: Carlene Booker on 01-17-2024 Platelets (Bld) [#/Vol] 173 10*3/uL 150-450 [facility] Potassium [Moles/volume] in Serum or PlasmaOrdered By: Carlene Booker on 01-17-2024 Potassium [Moles/Vol] 4.3 mmol/L 3.5-5.1 [facility] Protein [Mass/volume] in Ser um or PlasmaOrdered By: Carlene Booker on 01-17-2024 Protein [Mass/Vol] 7.3 g/dL 6.4-8.9 [facility] Protein [Mass/Vol] Protein [Mass/volume ] in Serum or Plasma 6.4-8.9 [facility] RBC Auto (Bld) [#/Vol]Ordere d By: Carlene Booker on 01-17-2024 RBC (Bld) [#/Vol] 4.16 10*6/uL 3.90-5.60 [facility] Serum or plasma albumin/glob ulin mass ratioOrdered By: Carlene Booker on 01-17-2024 Albumin/Globulin [Mass ratio] 1.2 {ratio} [facility] Albumin/Globulin [Mass ratio] Serum or plasma albumin/globulin mass ratio [facility] Serum or plasma anion gap de terminationOrdered By: Carlene Booker on 01-17-2024 Anion gap [Moles/Vol] 15.5 mmol/L High 6.0-15.0 [facility] Sodium [Moles/volume] in Ser um or PlasmaOrdered By: Carlene oBoker on 01-17-2024 Sodium [Moles/Vol] 137 mmol/L 136-145 [facility] Troponin I.cardiac [Mass/vol ume] in Serum or Plasma by Detection limit <= 0.01 ng/Ordered By: Ashley Griffiths on 01-17-2024 Troponin I.cardiac DL <= 0.01 ng/mL [Mass/Vol] 6.4 pg/mL 0.0-20.0 [facility] Urea nitrogen [Mass/volume] in Serum or PlasmaOrdered By: Carlene Booker on 01-17-2024 Urea nitrogen [Mass/Vol] 24 mg/dL 7-25 [facility] WBC Auto (Bld) [#/Vol]Ordere d By: Carlene Booker on 01-17-2024 WBC (Bld) [#/Vol] 10.1 10*3/uL 4.1-10.5 [facility] HbA1c HPLC (Bld) [Mass fract ion]on 01-03-2024 HbA1c (Bld) [Mass fraction] 7.1 % High [facility] HbA1c HPLC (Bld) [Mass fract ion]on 10-04-2023 HbA1c (Bld) [Mass fraction] 7.9 % [facility] Basophils Auto (Bld) [#/Vol] Ordered By: Mayra Person on 09-19-2023 Basophils (Bld) [#/Vol] 0.1 10*3/uL 0.0-0.2 [facility] Basophils/100 WBC Auto (Bld) Ordered By: Mayra Person on 09-19-2023 Basophils/100 WBC (Bld) 0.9 % . [facility] Calcium [Mass/volume] in Ser um or PlasmaOrdered By: Richard Galvan on 09-19-2023 Calcium [Mass/Vol] 8.9 mg/dL 8.6-10.3 [facility] Carbon dioxide, total [Moles /volume] in Serum or PlasmaOrdered By: Richard Galvan on 09-19-2023 CO2 [Moles/Vol] 24.1 mmol/L 21.0-31.0 [facility] Chloride [Moles/volume] in S albin or PlasmaOrdered By: Richard Galvan on 09-19-2023 Chloride [Moles/Vol] 109 mmol/L 98-107 [facility] Creatinine [Mass/volume] in Serum or PlasmaOrdered By: Richard Galvan on 09-19-2023 Creatinine [Mass/Vol] 1.43 mg/dL 0.70-1.30 [facility] Eosinophils Auto (Bld) [#/Vo l]Ordered By: Mayra Person on 09-19-2023 Eosinophils (Bld) [#/Vol] 0.1 10*3/uL 0.0-0.45 [facility] Eosinophils/100 WBC Auto (Bl d)Ordered By: Mayra Person on 09-19-2023 Eosinophils/100 WBC (Bld) 1.1 % . [facility] Erythrocyte distribution wid th Auto (RBC) [Ratio]Ordered By: Mayra Person on 09-19-2023 Erythrocyte distribution width (RBC) [Ratio] 13.2 % 12.0-14.8 [facility] Glucose Glucometer (BldC) [M ass/Vol]Ordered By: Richard Galvan on 09-19-2023 Glucose [Mass/Vol] 166 mg/dL [facility] Comment on above: Random Glucose Refer ence Range is dependent on time and content of last meal. Glucose of more than 200 mg/dL in a nonstressed, ambulatory subject supports the diagnosis of Diabetes Mellitus. Glucose [Mass/volume] in Ser um or PlasmaOrdered By: Richard Galvan on 09-19-2023 Glucose [Mass/Vol] 132 mg/dL 70-100 [facility] Comment on above: ADA recommended refe rence rangeRandom Glucose Reference Range is dependent on time and content of last meal. Glucose of more than 200 mg/dL in a nonstressed, ambulatory subject supports the diagnosis of Diabetes Mellitus. Hematocrit Auto (Bld) [Volum e fraction]Ordered By: Mayra Person on 09-19-2023 Hematocrit (Bld) [Volume fraction] 37.2 % 38.8-50.0 [facility] Hemoglobin [Mass/volume] in BloodOrdered By: Mayra Person on 09-19-2023 Hemoglobin (Bld) [Mass/Vol] 12.7 g/dL 13.0-17.0 [facility] Leukocytes [#/volume] correc yana for nucleated erythrocytes in Blood by Automated counOrdered By: Mayra Person on 09-19-2023 WBC corrected for nucl RBC Auto (Bld) [#/Vol] 5.9 10*3/uL 4.1-10.5 [facility] Lymphocytes Auto (Bld) [#/Vo l]Ordered By: Mayra Person on 09-19-2023 Lymphocytes (Bld) [#/Vol] 1.1 10*3/uL 1.00-4.8 [facility] Lymphocytes/100 WBC Auto (Bl d)Ordered By: Mayra Person on 09-19-2023 Lymphocytes/100 WBC (Bld) 18.7 % . [facility] MCH Auto (RBC) [Entitic mass ]Ordered By: Mayra Person on 09-19-2023 MCH (RBC) [Entitic mass] 32.0 pg 27.5-35.2 [facility] MCHC Auto (RBC) [Mass/Vol]Or dered By: aMyra Person on 09-19-2023 MCHC (RBC) [Mass/Vol] 34.1 g/dL 32.5-35.6 [facility] MCV Auto (RBC) [Entitic vol] Ordered By: Mayra Person on 09-19-2023 MCV (RBC) [Entitic vol] 94.0 fL 83.5-101 [facility] Monocytes Auto (Bld) [#/Vol] Ordered By: Mayra Person on 09-19-2023 Monocytes (Bld) [#/Vol] 0.4 10*3/uL 0.0-0.8 [facility] Monocytes/100 WBC Auto (Bld) Ordered By: Mayra Person on 09-19-2023 Monocytes/100 WBC (Bld) 6.9 % . [facility] Neutrophils Auto (Bld) [#/Vo l]Ordered By: Mayra Person on 09-19-2023 Neutrophils (Bld) [#/Vol] 4.2 10*3/uL 1.8-7.7 [facility] Neutrophils/100 WBC Auto (Bl d)Ordered By: Mayra Person on 09-19-2023 Neutrophils/100 WBC (Bld) 72.4 % . [facility] No Panel InformationOrdered By: Richard Galvan on 09-19-2023 Estimated GFR (CKD-EPI) 47.423 mL/Min [facility] Creatinine Clearance (Chem 36.39 [facility] Nucleated erythrocytes [Pres ence] in Blood by Automated countOrdered By: Mayra Person on 09-19-2023 Nucleated RBC Auto Ql (Bld) 0.0 /100{WBC} 0-0.5 [facility] Platelet mean volume Auto (B ld) [Entitic vol]Ordered By: Mayra Person on 09-19-2023 Platelet mean volume (Bld) [Entitic vol] 8.6 fL 6.6-10.1 [facility] Platelets Auto (Bld) [#/Vol] Ordered By: Mayra Person on 09-19-2023 Platelets (Bld) [#/Vol] 107 10*3/uL 150-450 [facility] Potassium [Moles/volume] in Serum or PlasmaOrdered By: Richard Galvan on 09-19-2023 Potassium [Moles/Vol] 4.9 mmol/L 3.5-5.1 [facility] RBC Auto (Bld) [#/Vol]Ordere d By: Mayra Person on 09-19-2023 RBC (Bld) [#/Vol] 3.96 10*6/uL 3.90-5.60 [facility] Serum or plasma anion gap de terminationOrdered By: Richard Galvan on 09-19-2023 Anion gap [Moles/Vol] 8.8 mmol/L 6.0-15.0 [facility] Sodium [Moles/volume] in Ser um or PlasmaOrdered By: Richard Galvan on 09-19-2023 Sodium [Moles/Vol] 137 mmol/L 136-145 [facility] Urea nitrogen [Mass/volume] in Serum or PlasmaOrdered By: Richard Galvan on 09-19-2023 Urea nitrogen [Mass/Vol] 40 mg/dL 7-25 [facility] WBC Auto (Bld) [#/Vol]Ordere d By: Mayra Person on 09-19-2023 WBC (Bld) [#/Vol] 5.9 10*3/uL 4.1-10.5 [facility] Troponin I.cardiac [Mass/vol ume] in Serum or Plasma by Detection limit <= 0.01 ng/Ordered By: Ashley Griffiths on 09-18-2023 Troponin I.cardiac DL <= 0.01 ng/mL [Mass/Vol] 6.4 pg/mL 0.0-20.0 [facility] Activated partial thrombopla stin time (aPTT) in platelet poor plasma by coagulation aOrdered By: Merlin Escobar on 09-17-2023 aPTT Coag (PPP) [Time] 27.6 s 25.1-36.5 [facility] Comment on above: A hematocrit value g reater than 55% may lead to inaccurate results in coagulation testing. Patients having hematocrit values >55% require a special collection tube for coagulation studies. Please contact the laboratory at [phone] for redraw instructions. Alanine aminotransferase [En zymatic activity/volume] in Serum or PlasmaOrdered By: Merlin Escobar on 09-17-2023 ALT [Catalytic activity/Vol] 30 U/L 7-52 [facility] Albumin [Mass/volume] in Ser um or Plasma by Bromocresol green (BCG) dye binding methoOrdered By: Merlin Escobar on 09-17-2023 Albumin BCG dye [Mass/Vol] 3.7 g/dL 3.5-5.7 [facility] Alkaline phosphatase [Enzyma tic activity/volume] in Serum or PlasmaOrdered By: Merlin Escobar on 09-17-2023 ALP [Catalytic activity/Vol] 88 U/L 34-104 [facility] Aspartate aminotransferase [ Enzymatic activity/volume] in Serum or PlasmaOrdered By: Merlin Escobar on 09-17-2023 AST [Catalytic activity/Vol] 49 U/L 13-39 [facility] Basophils Auto (Bld) [#/Vol] Ordered By: Merlin Escobar on 09-17-2023 Basophils (Bld) [#/Vol] 0.1 10*3/uL 0.0-0.2 [facility] Basophils/100 WBC Auto (Bld) Ordered By: Merlin Escobar on 09-17-2023 Basophils/100 WBC (Bld) 0.8 % . [facility] Bilirubin.direct [Mass/volum e] in Serum or PlasmaOrdered By: Merlin Escobar on 09-17-2023 Bilirubin.direct [Mass/Vol] 0.10 mg/dL 0.03-0.18 [facility] Bilirubin.total [Mass/volume ] in Serum or PlasmaOrdered By: Merlin Escobar on 09-17-2023 Bilirubin [Mass/Vol] 0.6 mg/dL 0.3-1.0 [facility] Calcium [Mass/volume] in Ser um or PlasmaOrdered By: Merlin Escobar on 09-17-2023 Calcium [Mass/Vol] 9.2 mg/dL 8.6-10.3 [facility] Carbon dioxide, total [Moles /volume] in Serum or PlasmaOrdered By: Merlin Escobar on 09-17-2023 CO2 [Moles/Vol] 24.8 mmol/L 21.0-31.0 [facility] Chloride [Moles/volume] in S albin or PlasmaOrdered By: Merlin Escobar on 09-17-2023 Chloride [Moles/Vol] 110 mmol/L 98-107 [facility] Creatine kinase [Enzymatic a ctivity/volume] in Serum or PlasmaOrdered By: Merlin Esocbar on 09-17-2023 CK [Catalytic activity/Vol] 72 U/L 30-223 [facility] Creatinine [Mass/volume] in Serum or PlasmaOrdered By: Merlin Escobar on 09-17-2023 Creatinine [Mass/Vol] 1.56 mg/dL 0.70-1.30 [facility] Eosinophils Auto (Bld) [#/Vo l]Ordered By: Merlin Escobar on 09-17-2023 Eosinophils (Bld) [#/Vol] 0.1 10*3/uL 0.0-0.45 [facility] Eosinophils/100 WBC Auto (Bl d)Ordered By: Merlin Escobar on 09-17-2023 Eosinophils/100 WBC (Bld) 1.0 % . [facility] Erythrocyte distribution wid th Auto (RBC) [Ratio]Ordered By: Merlin Escobar on 09-17-2023 Erythrocyte distribution width (RBC) [Ratio] 13.2 % 12.0-14.8 [facility] Globulin Calc (S) [Mass/Vol] Ordered By: Merlin Escobar 09-17-2023 Globulin (S) [Mass/Vol] 2.2 g/dL [facility] Glucose [Mass/volume] in Ser um or PlasmaOrdered By: Merlin Escobar on 09-17-2023 Glucose [Mass/Vol] 135 mg/dL 70-100 [facility] Comment on above: ADA recommended refe rence rangeRandom Glucose Reference Range is dependent on time and content of last meal. Glucose of more than 200 mg/dL in a nonstressed, ambulatory subject supports the diagnosis of Diabetes Mellitus. Hematocrit Auto (Bld) [Volum e fraction]Ordered By: Merlin Escobar on 09-17-2023 Hematocrit (Bld) [Volume fraction] 37.7 % 38.8-50.0 [facility] Hemoglobin [Mass/volume] in BloodOrdered By: Merlin Escobar on 09-17-2023 Hemoglobin (Bld) [Mass/Vol] 12.8 g/dL 13.0-17.0 [facility] INR in Platelet poor plasma by Coagulation assayOrdered By: Merlin Escobar on 09-17-2023 INR Coag (PPP) [Relative time] 1.0 {INR} [facility] Comment on above: INR Therapeutic Rang e A) Pre- and Peroperative OAT started two weeks before surgery. NOT HIP SURGERY: 1.5 - 2.5 HIP SURGERY: 2 - 3B) Primary and secondary prevention of venous THROMBOSIS: 2 - 3C) Active venous thrombosis, pulmonary embolismand prevention of recurrent venous thrombosis: 2 - 3D) Prevention of arterial thromboembolismincluding patients with mechanical heart valves: 3 - 4.5 Leukocytes [#/volume] correc yana for nucleated erythrocytes in Blood by Automated counOrdered By: Merlin Escobar on 09-17-2023 WBC corrected for nucl RBC Auto (Bld) [#/Vol] 7.6 10*3/uL 4.1-10.5 [facility] Lipase [Enzymatic activity/v olume] in Serum or PlasmaOrdered By: Merlin Escobar on 09-17-2023 Lipase [Catalytic activity/Vol] 71.0 U/L 11.0-82.0 [facility] Lymphocytes Auto (Bld) [#/Vo l]Ordered By: Merlin Escobar on 09-17-2023 Lymphocytes (Bld) [#/Vol] 1.2 10*3/uL 1.00-4.8 [facility] Lymphocytes/100 WBC Auto (Bl d)Ordered By: Merlin Escobar on 09-17-2023 Lymphocytes/100 WBC (Bld) 16.3 % . [facility] MCH Auto (RBC) [Entitic mass ]Ordered By: Merlin Escobar on 09-17-2023 MCH (RBC) [Entitic mass] 31.9 pg 27.5-35.2 [facility] MCHC Auto (RBC) [Mass/Vol]Or dered By: Merlin Escobar on 09-17-2023 MCHC (RBC) [Mass/Vol] 33.8 g/dL 32.5-35.6 [facility] MCV Auto (RBC) [Entitic vol] Ordered By: Merlin Escobar on 09-17-2023 MCV (RBC) [Entitic vol] 94.4 fL 83.5-101 [facility] Magnesium [Mass/volume] in S albin or PlasmaOrdered By: Merlin Escobar on 09-17-2023 Magnesium [Mass/Vol] 1.7 mg/dL 1.9-2.7 [facility] Monocyte distribution width [Entitic volume] in Blood by AutomatedOrdered By: Merlin Escobar on 09-17-2023 Monocyte distribution width Auto (Bld) [Entitic vol] 16.05 % 0.00-20.00 [facility] Monocytes Auto (Bld) [#/Vol] Ordered By: Merlin Escobar on 09-17-2023 Monocytes (Bld) [#/Vol] 0.7 10*3/uL 0.0-0.8 [facility] Monocytes/100 WBC Auto (Bld) Ordered By: Merlin Escobar on 09-17-2023 Monocytes/100 WBC (Bld) 8.7 % . [facility] Natriuretic peptide B [Mass/ Vol]Ordered By: Merlin Escobar on 09-17-2023 Natriuretic peptide B (Bld) [Mass/Vol] 100.0 pg/mL 5-100 [facility] Neutrophils Auto (Bld) [#/Vo l]Ordered By: Merlin Escobar on 09-17-2023 Neutrophils (Bld) [#/Vol] 5.5 10*3/uL 1.8-7.7 [facility] Neutrophils/100 WBC Auto (Bl d)Ordered By: Merlin Escobar on 09-17-2023 Neutrophils/100 WBC (Bld) 73.2 % . [facility] No Panel InformationOrdered By: Merlin Escobar on 09-17-2023 Estimated GFR (CKD-EPI) 42.721 mL/Min [facility] Creatinine Clearance (Chem 33.36 [facility] Nucleated erythrocytes [Pres ence] in Blood by Automated countOrdered By: Merlin Escobar on 09-17-2023 Nucleated RBC Auto Ql (Bld) 0.1 /100{WBC} 0-0.5 [facility] Platelet mean volume Auto (B ld) [Entitic vol]Ordered By: Merlin Escobar on 09-17-2023 Platelet mean volume (Bld) [Entitic vol] 8.2 fL 6.6-10.1 [facility] Platelets Auto (Bld) [#/Vol] Ordered By: Merlin Escobar on 09-17-2023 Platelets (Bld) [#/Vol] 118 10*3/uL 150-450 [facility] Potassium [Moles/volume] in Serum or PlasmaOrdered By: Merlin Escobar on 09-17-2023 Potassium [Moles/Vol] 4.9 mmol/L 3.5-5.1 [facility] Protein [Mass/volume] in Ser um or PlasmaOrdered By: Merlin Escobar on 09-17-2023 Protein [Mass/Vol] 5.9 g/dL 6.4-8.9 [facility] Prothrombin time (PT)Ordered By: Merlin Escobar on 09-17-2023 PT Coag (PPP) [Time] 11.5 s 9.0-12.9 [facility] Comment on above: A hematocrit value g reater than 55% may lead to inaccurate results in coagulation testing. Patients having hematocrit values >55% require a special collection tube for coagulation studies. Please contact the laboratory at [phone] for redraw instructions. RBC Auto (Bld) [#/Vol]Ordere d By: Merlin Escobar on 09-17-2023 RBC (Bld) [#/Vol] 3.99 10*6/uL 3.90-5.60 [facility] Serum or plasma albumin/glob ulin mass ratioOrdered By: Merlin Escobar on 09-17-2023 Albumin/Globulin [Mass ratio] 1.7 {ratio} [facility] Serum or plasma anion gap de terminationOrdered By: Merlin Escobar on 09-17-2023 Anion gap [Moles/Vol] 10.1 mmol/L 6.0-15.0 [facility] Serum or plasma non-glucuron idated bilirubin measurement (mass/volume)Ordered By: Merlin Escobar on 09-17-2023 Bilirubin.indirect [Mass/Vol] 0.5 mg/dL [facility] Sodium [Moles/volume] in Ser um or PlasmaOrdered By: Merlin Escobar on 09-17-2023 Sodium [Moles/Vol] 140 mmol/L 136-145 [facility] Troponin I.cardiac [Mass/vol ume] in Serum or Plasma by Detection limit <= 0.01 ng/Ordered By: Merlin Ecsobar on 09-17-2023 Troponin I.cardiac DL <= 0.01 ng/mL [Mass/Vol] 5.8 pg/mL 0.0-20.0 [facility] Urea nitrogen [Mass/volume] in Serum or PlasmaOrdered By: Merlin Escobar on 09-17-2023 Urea nitrogen [Mass/Vol] 43 mg/dL 7-25 [facility] WBC Auto (Bld) [#/Vol]Ordere d By: Merlin Escobar on 09-17-2023 WBC (Bld) [#/Vol] 7.6 10*3/uL 4.1-10.5 [facility] No Panel Informationon 08-09 Study performed outs melissa the system. Official study report is not available here and may be obtained from the performing facility. [email or web address] No Panel InformationOrdered By: Documentation Systemgenerated on 08-10-2023 [facility] Work Phone: Activated partial thrombopla stin time (aPTT) in platelet poor plasma by coagulation aOrdered By: Joie Christopher on 07-29-2023 aPTT Coag (PPP) [Time] 28.1 s 25.1-36.5 [facility] Comment on above: A hematocrit value g reater than 55% may lead to inaccurate results in coagulation testing. Patients having hematocrit values >55% require a special collection tube for coagulation studies. Please contact the laboratory at [phone] for redraw instructions. Basophils Auto (Bld) [#/Vol] Ordered By: Joie Christopher on 07-29-2023 Basophils (Bld) [#/Vol] 0.1 10*3/uL 0.0-0.2 [facility] Basophils/100 WBC Auto (Bld) Ordered By: Joie Christopher on 07-29-2023 Basophils/100 WBC (Bld) 1.0 % . [facility] Carbon dioxide, total [Moles /volume] in Serum or PlasmaOrdered By: Joie Christopher on 07-29-2023 CO2 [Moles/Vol] 26.4 mmol/L 21.0-31.0 [facility] Chloride [Moles/volume] in S albin or PlasmaOrdered By: Joie Christopher on 07-29-2023 Chloride [Moles/Vol] 108 mmol/L 98-107 [facility] Cholesterol [Mass/volume] in Serum or PlasmaOrdered By: Joie Christopher on 07-29-2023 Cholesterol [Mass/Vol] 131 mg/dL 140-200 [facility] Comment on above: Chol less than 200 m g/dl low riskChol 201-239 mg/dl borderline riskChol 240 mg/dl and greater high risk Cholesterol in LDL Calc [Mas s/Vol]Ordered By: Joie Christopher on 07-29-2023 Cholesterol in LDL [Mass/Vol] 61 mg/dL 0-100 [facility] Comment on above: LDL ATP III CLASSIFI CATIONLDL less than 100 mg/dL OptimalLDL 100-129 mg/dL Near or above optimalLDL 130-159 mg/dL Borderline highLDL 160-189 mg/dL HighLDL greater than 189 mg/dL Very high Cholesterol in VLDL Calc [Ma ss/Vol]Ordered By: Joie Christopher on 07-29-2023 Cholesterol in VLDL [Mass/Vol] 24 mg/dL [facility] Creatinine [Mass/volume] in Serum or PlasmaOrdered By: Joie Christopher on 07-29-2023 Creatinine [Mass/Vol] 1.48 mg/dL 0.70-1.30 [facility] Eosinophils Auto (Bld) [#/Vo l]Ordered By: Joie Christopher on 07-29-2023 Eosinophils (Bld) [#/Vol] 0.1 10*3/uL 0.0-0.45 [facility] Eosinophils/100 WBC Auto (Bl d)Ordered By: Joie Christopher on 07-29-2023 Eosinophils/100 WBC (Bld) 1.9 % . [facility] Erythrocyte distribution wid th Auto (RBC) [Ratio]Ordered By: Joie Christopher on 07-29-2023 Erythrocyte distribution width (RBC) [Ratio] 13.5 % 12.0-14.8 [facility] Hematocrit Auto (Bld) [Volum e fraction]Ordered By: Joie Christopher on 07-29-2023 Hematocrit (Bld) [Volume fraction] 36.9 % 38.8-50.0 [facility] Hemoglobin [Mass/volume] in BloodOrdered By: Joie Christopher on 07-29-2023 Hemoglobin (Bld) [Mass/Vol] 12.4 g/dL 13.0-17.0 [facility] INR in Platelet poor plasma by Coagulation assayOrdered By: Joie Christopher on 07-29-2023 INR Coag (PPP) [Relative time] 1.0 {INR} [facility] Comment on above: INR Therapeutic Rang e A) Pre- and Peroperative OAT started two weeks before surgery. NOT HIP SURGERY: 1.5 - 2.5 HIP SURGERY: 2 - 3B) Primary and secondary prevention of venous THROMBOSIS: 2 - 3C) Active venous thrombosis, pulmonary embolismand prevention of recurrent venous thrombosis: 2 - 3D) Prevention of arterial thromboembolismincluding patients with mechanical heart valves: 3 - 4.5 Leukocytes [#/volume] correc yana for nucleated erythrocytes in Blood by Automated counOrdered By: Joie Christopher on 07-29-2023 WBC corrected for nucl RBC Auto (Bld) [#/Vol] 5.8 10*3/uL 4.1-10.5 [facility] Lymphocytes Auto (Bld) [#/Vo l]Ordered By: Joie Christopher on 07-29-2023 Lymphocytes (Bld) [#/Vol] 1.0 10*3/uL 1.00-4.8 [facility] Lymphocytes/100 WBC Auto (Bl d)Ordered By: Joie Christopher on 07-29-2023 Lymphocytes/100 WBC (Bld) 16.5 % . [facility] MCH Auto (RBC) [Entitic mass ]Ordered By: Joie Christopher on 07-29-2023 MCH (RBC) [Entitic mass] 31.8 pg 27.5-35.2 [facility] MCHC Auto (RBC) [Mass/Vol]Or dered By: Joie Christopher on 07-29-2023 MCHC (RBC) [Mass/Vol] 33.6 g/dL 32.5-35.6 [facility] MCV Auto (RBC) [Entitic vol] Ordered By: Joie Christopher on 07-29-2023 MCV (RBC) [Entitic vol] 94.5 fL 83.5-101 [facility] Monocytes Auto (Bld) [#/Vol] Ordered By: Joie Christopher on 07-29-2023 Monocytes (Bld) [#/Vol] 0.5 10*3/uL 0.0-0.8 [facility] Monocytes/100 WBC Auto (Bld) Ordered By: Joie Christopher on 07-29-2023 Monocytes/100 WBC (Bld) 8.4 % . [facility] Neutrophils Auto (Bld) [#/Vo l]Ordered By: Joie Christopher on 07-29-2023 Neutrophils (Bld) [#/Vol] 4.2 10*3/uL 1.8-7.7 [facility] Neutrophils/100 WBC Auto (Bl d)Ordered By: Joie Christopher on 07-29-2023 Neutrophils/100 WBC (Bld) 72.2 % . [facility] No Panel InformationOrdered By: Joie Christopher on 07-29-2023 Estimated GFR (CKD-EPI) 45.790 mL/Min [facility] Creatinine Clearance (Chem N/A [facility] Nucleated erythrocytes [Pres ence] in Blood by Automated countOrdered By: Joie Christopher on 07-29-2023 Nucleated RBC Auto Ql (Bld) 0.1 /100{WBC} 0-0.5 [facility] Platelet mean volume Auto (B ld) [Entitic vol]Ordered By: Joie Christopher on 07-29-2023 Platelet mean volume (Bld) [Entitic vol] 8.9 fL 6.6-10.1 [facility] Platelets Auto (Bld) [#/Vol] Ordered By: Joie Christopher on 07-29-2023 Platelets (Bld) [#/Vol] 145 10*3/uL 150-450 [facility] Potassium [Moles/volume] in Serum or PlasmaOrdered By: Joie Christopher on 07-29-2023 Potassium [Moles/Vol] 4.7 mmol/L 3.5-5.1 [facility] Prothrombin time (PT)Ordered By: Joie Christopher on 07-29-2023 PT Coag (PPP) [Time] 11.4 s 9.0-12.9 [facility] Comment on above: A hematocrit value g reater than 55% may lead to inaccurate results in coagulation testing. Patients having hematocrit values >55% require a special collection tube for coagulation studies. Please contact the laboratory at [phone] for redraw instructions. RBC Auto (Bld) [#/Vol]Ordere d By: Joie Christopher on 07-29-2023 RBC (Bld) [#/Vol] 3.91 10*6/uL 3.90-5.60 [facility] Serum or plasma anion gap de terminationOrdered By: Joie Christopher on 07-29-2023 Anion gap [Moles/Vol] 8.3 mmol/L 6.0-15.0 [facility] Serum or plasma high density lipoprotein (HDL) cholesterol measurementOrdered By: Joie Christopher on 07-29-2023 Cholesterol in HDL [Mass/Vol] 46 mg/dL 23-92 [facility] Comment on above: HDL CHOL ATP-III CLA SSIFICATION Cardiovascular RiskHDL > or equal to 60 mg/dL LOWHDL < 40 mg/dL HIGH Serum or plasma total choles terol/high density lipoprotein (HDL) cholesterol mass ratOrdered By: Joie Christopher on 07-29-2023 Cholesterol.total/Chol esterol in HDL [Mass ratio] 2.8 {ratio} <5.0 [facility] Sodium [Moles/volume] in Ser um or PlasmaOrdered By: Joie Christopher on 07-29-2023 Sodium [Moles/Vol] 138 mmol/L 136-145 [facility] Triglyceride [Mass/volume] i n Serum or PlasmaOrdered By: Joie Christopher on 07-29-2023 Triglyceride [Mass/Vol] 121 mg/dL 0-149 [facility] Comment on above: TRIG ATP III CLASSIF ICATIONTRIG less than 150 mg/dL NormalTRIG 150-199 mg/dL Borderline highTRIG 200-500 mg/dL High TRIG greater than 500 mg/dL Very highStandard traceable to the Center for Disease Conrtrol and Prevention (CDC) test method. Urea nitrogen [Mass/volume] in Serum or PlasmaOrdered By: Joie Christopher on 07-29-2023 Urea nitrogen [Mass/Vol] 28 mg/dL 7-25 [facility] WBC Auto (Bld) [#/Vol]Ordere d By: Joie Christopher on 07-29-2023 WBC (Bld) [#/Vol] 5.8 10*3/uL 4.1-10.5 [facility] Alanine aminotransferase [En zymatic activity/volume] in Serum or PlasmaOrdered By: Justice Singh on 06-06-2023 ALT [Catalytic activity/Vol] 16 U/L 7-52 [facility] Albumin [Mass/volume] in Ser um or Plasma by Bromocresol green (BCG) dye binding methoOrdered By: Justice Singh on 06-06-2023 Albumin BCG dye [Mass/Vol] 4.1 g/dL 3.5-5.7 [facility] Alkaline phosphatase [Enzyma tic activity/volume] in Serum or PlasmaOrdered By: Justice Singh on 06-06-2023 ALP [Catalytic activity/Vol] 94 U/L 34-104 [facility] Aspartate aminotransferase [ Enzymatic activity/volume] in Serum or PlasmaOrdered By: Justice Singh on 06-06-2023 AST [Catalytic activity/Vol] 17 U/L 13-39 [facility] Bilirubin.total [Mass/volume ] in Serum or PlasmaOrdered By: Justice Singh on 06-06-2023 Bilirubin [Mass/Vol] 0.8 mg/dL 0.3-1.0 [facility] Calcium [Mass/volume] in Ser um or PlasmaOrdered By: Justice Singh on 06-06-2023 Calcium [Mass/Vol] 9.4 mg/dL 8.6-10.3 [facility] Carbon dioxide, total [Moles /volume] in Serum or PlasmaOrdered By: Justice Singh on 06-06-2023 CO2 [Moles/Vol] 26.4 mmol/L 21.0-31.0 [facility] Chloride [Moles/volume] in S albin or PlasmaOrdered By: Justice Singh on 06-06-2023 Chloride [Moles/Vol] 109 mmol/L 98-107 [facility] Creatinine [Mass/volume] in Serum or PlasmaOrdered By: Justice Singh on 06-06-2023 Creatinine [Mass/Vol] 1.57 mg/dL 0.70-1.30 [facility] Globulin Calc (S) [Mass/Vol] Ordered By: Justice Singh on 06-06-2023 Globulin (S) [Mass/Vol] 2.4 g/dL [facility] Glucose [Mass/volume] in Ser um or PlasmaOrdered By: Justice Singh on 06-06-2023 Glucose [Mass/Vol] 106 mg/dL 70-100 [facility] Comment on above: ADA recommended refe rence rangeRandom Glucose Reference Range is dependent on time and content of last meal. Glucose of more than 200 mg/dL in a nonstressed, ambulatory subject supports the diagnosis of Diabetes Mellitus. Hepatitis B virus surface Ag [Presence] in Serum or Plasma by ImmunoassayOrdered By: Justice Singh on 06-06-2023 HBV surface Ag IA Ql Negative Negative [facility] Hepatitis C virus IgG Ab [Pr esence] in Serum or Plasma by ImmunoassayOrdered By: Justice Singh on 06-06-2023 HCV IgG IA Ql Non-Reactive Non Reactive [facility] Hepatitis C virus RNA [Units /volume] (viral load) in Serum or Plasma by FIFI with probOrdered By: Justice Singh on 06-06-2023 HCV RNA FIFI+probe Qn N/A [facility] Hepatitis C virus RNA [log u nits/volume] (viral load) in Serum or Plasma by FIFI withOrdered By: Justice Singh on 06-06-2023 HCV RNA FIFI+probe [Log units/Vol] N/A [facility] No Panel InformationOrdered By: Justice Singh on 06-06-2023 Estimated GFR (CKD-EPI) 42.659 mL/Min [facility] Hepatitis A IgM Antibody Negative Negative [facility] Hepatitis B Core IgM Antibody Negative Negative [facility] Hepatitis C Interpretation See comment . [facility] Comment on above: Not infected with HC V unless early or acute infection issuspected (which may be delayed in an immunocompromisedindividual), or other evidence exists to indicate HCVinfection.Performed at: [facility] [address] [id number] Director: Daryl Long PhD, Phone: [phone] Pharmacy Creatinine Clearance (Chem N/A [facility] Potassium [Moles/volume] in Serum or PlasmaOrdered By: Justice Singh on 06-06-2023 Potassium [Moles/Vol] 4.4 mmol/L 3.5-5.1 [facility] Protein [Mass/volume] in Ser um or PlasmaOrdered By: Justice Singh on 06-06-2023 Protein [Mass/Vol] 6.5 g/dL 6.4-8.9 [facility] Serum or plasma albumin/glob ulin mass ratioOrdered By: Justice Singh on 06-06-2023 Albumin/Globulin [Mass ratio] 1.7 {ratio} [facility] Serum or plasma anion gap de terminationOrdered By: Justice Singh on 06-06-2023 Anion gap [Moles/Vol] 10.0 mmol/L 6.0-15.0 [facility] Sodium [Moles/volume] in Ser um or PlasmaOrdered By: Justice Singh on 06-06-2023 Sodium [Moles/Vol] 141 mmol/L 136-145 [facility] Urea nitrogen [Mass/volume] in Serum or PlasmaOrdered By: Justice Singh on 06-06-2023 Urea nitrogen [Mass/Vol] 35 mg/dL 7 [facility] Alanine aminotransferase [En zymatic activity/volume] in Serum or PlasmaOrdered By: Justice Singh on 05-17-2023 ALT [Catalytic activity/Vol] 58 U/L [facility] Albumin [Mass/volume] in Ser um or Plasma by Bromocresol green (BCG) dye binding methoOrdered By: Justice Singh on 05-17-2023 Albumin BCG dye [Mass/Vol] 3.9 g/dL 3.5-5.7 [facility] Alkaline phosphatase [Enzyma tic activity/volume] in Serum or PlasmaOrdered By: Justice Singh on 05-17-2023 ALP [Catalytic activity/Vol] 124 U/L 34-104 [facility] Aspartate aminotransferase [ Enzymatic activity/volume] in Serum or PlasmaOrdered By: Justice Singh on 05-17-2023 AST [Catalytic activity/Vol] 51 U/L 13-39 [facility] Basophils Auto (Bld) [#/Vol] Ordered By: Justice Singh on 05-17-2023 Basophils (Bld) [#/Vol] 0.1 10*3/uL 0.0-0.2 [facility] Basophils/100 WBC Auto (Bld) Ordered By: Justice Singh on 05-17-2023 Basophils/100 WBC (Bld) 1.1 % . [facility] Bilirubin.total [Mass/volume ] in Serum or PlasmaOrdered By: Justice Singh on 05-17-2023 Bilirubin [Mass/Vol] 0.6 mg/dL 0.3-1.0 [facility] Calcium [Mass/volume] in Ser um or PlasmaOrdered By: Justice Singh on 05-17-2023 Calcium [Mass/Vol] 9.4 mg/dL 8.6-10.3 [facility] Carbon dioxide, total [Moles /volume] in Serum or PlasmaOrdered By: Justice Singh on 05-17-2023 CO2 [Moles/Vol] 29.4 mmol/L 21.0-31.0 [facility] Chloride [Moles/volume] in S albin or PlasmaOrdered By: Justice Singh on 05-17-2023 Chloride [Moles/Vol] 108 mmol/L 98-107 [facility] Cholesterol [Mass/volume] in Serum or PlasmaOrdered By: Justice Singh on 05-17-2023 Cholesterol [Mass/Vol] 152 mg/dL 140-200 [facility] Comment on above: Chol less than 200 m g/dl low riskChol 201-239 mg/dl borderline riskChol 240 mg/dl and greater high risk Cholesterol in LDL Calc [Mas s/Vol]Ordered By: Justice Singh on 05-17-2023 Cholesterol in LDL [Mass/Vol] 71 mg/dL 0-100 [facility] Comment on above: LDL ATP III CLASSIFI CATIONLDL less than 100 mg/dL OptimalLDL 100-129 mg/dL Near or above optimalLDL 130-159 mg/dL Borderline highLDL 160-189 mg/dL HighLDL greater than 189 mg/dL Very high Cholesterol in VLDL Calc [Ma ss/Vol]Ordered By: Justice Singh on 05-17-2023 Cholesterol in VLDL [Mass/Vol] 27 mg/dL [facility] Creatinine [Mass/volume] in Serum or PlasmaOrdered By: Justice Singh on 05-17-2023 Creatinine [Mass/Vol] 1.46 mg/dL 0.70-1.30 [facility] Eosinophils Auto (Bld) [#/Vo l]Ordered By: Justice Singh on 05-17-2023 Eosinophils (Bld) [#/Vol] 0.2 10*3/uL 0.0-0.45 [facility] Eosinophils/100 WBC Auto (Bl d)Ordered By: Justice Singh on 05-17-2023 Eosinophils/100 WBC (Bld) 3.4 % . [facility] Erythrocyte distribution wid th Auto (RBC) [Ratio]Ordered By: Justice Singh on 05-17-2023 Erythrocyte distribution width (RBC) [Ratio] 13.7 % 12.0-14.8 [facility] Globulin Calc (S) [Mass/Vol] Ordered By: Justice Singh on 05-17-2023 Globulin (S) [Mass/Vol] 2.5 g/dL [facility] Glucose [Mass/volume] in Ser um or PlasmaOrdered By: Justice Singh on 05-17-2023 Glucose [Mass/Vol] 165 mg/dL 70-100 [facility] Comment on above: ADA recommended refe rence rangeRandom Glucose Reference Range is dependent on time and content of last meal. Glucose of more than 200 mg/dL in a nonstressed, ambulatory subject supports the diagnosis of Diabetes Mellitus. Glucose mean value [Mass/vol ume] in Blood Estimated from glycated hemoglobinOrdered By: Justice Singh on 05-17-2023 Average glucose Estimated from glycated hemoglobin (Bld) [Mass/Vol] 189 mg/dL [facility] Hematocrit Auto (Bld) [Volum e fraction]Ordered By: Justice Singh on 05-17-2023 Hematocrit (Bld) [Volume fraction] 38.8 % 38.8-50.0 [facility] Hemoglobin A1c percentageOrd ered By: Justice Singh on 05-17-2023 HbA1c (Bld) [Mass fraction] 8.2 % 4.3-5.6 [facility] Comment on above: Increased risk for d iabetes: 5.7 - 6.4diabetes: >6.4glycemic control for adults with diabetes: <7.0 Hemoglobin [Mass/volume] in BloodOrdered By: Justice Singh on 05-17-2023 Hemoglobin (Bld) [Mass/Vol] 13.1 g/dL 13.0-17.0 [facility] Leukocytes [#/volume] correc yana for nucleated erythrocytes in Blood by Automated counOrdered By: Justice Singh on 05-17-2023 WBC corrected for nucl RBC Auto (Bld) [#/Vol] 5.3 10*3/uL 4.1-10.5 [facility] Lymphocytes Auto (Bld) [#/Vo l]Ordered By: Justice Singh on 05-17-2023 Lymphocytes (Bld) [#/Vol] 1.2 10*3/uL 1.00-4.8 [facility] Lymphocytes/100 WBC Auto (Bl d)Ordered By: Justice Singh on 05-17-2023 Lymphocytes/100 WBC (Bld) 23.3 % . [facility] MCH Auto (RBC) [Entitic mass ]Ordered By: Justice Singh on 05-17-2023 MCH (RBC) [Entitic mass] 31.6 pg 27.5-35.2 [facility] MCHC Auto (RBC) [Mass/Vol]Or dered By: Justice Singh on 05-17-2023 MCHC (RBC) [Mass/Vol] 33.7 g/dL 32.5-35.6 [facility] MCV Auto (RBC) [Entitic vol] Ordered By: Justice Singh on 05-17-2023 MCV (RBC) [Entitic vol] 93.9 fL 83.5-101 [facility] Monocytes Auto (Bld) [#/Vol] Ordered By: Justice Singh on 05-17-2023 Monocytes (Bld) [#/Vol] 0.5 10*3/uL 0.0-0.8 [facility] Monocytes/100 WBC Auto (Bld) Ordered By: Justice Singh on 05-17-2023 Monocytes/100 WBC (Bld) 9.0 % . [facility] Neutrophils Auto (Bld) [#/Vo l]Ordered By: Justice Singh on 05-17-2023 Neutrophils (Bld) [#/Vol] 3.4 10*3/uL 1.8-7.7 [facility] Neutrophils/100 WBC Auto (Bl d)Ordered By: Justice Singh on 05-17-2023 Neutrophils/100 WBC (Bld) 63.2 % . [facility] No Panel InformationOrdered By: Justice Singh on 05-17-2023 Estimated GFR (CKD-EPI) 46.545 mL/Min [facility] Creatinine Clearance (Chem N/A [facility] Nucleated erythrocytes [Pres ence] in Blood by Automated countOrdered By: Justice Singh on 05-17-2023 Nucleated RBC Auto Ql (Bld) 0.2 /100{WBC} 0-0.5 [facility] Platelet mean volume Auto (B ld) [Entitic vol]Ordered By: Justice Singh on 05-17-2023 Platelet mean volume (Bld) [Entitic vol] 8.6 fL 6.6-10.1 [facility] Platelets Auto (Bld) [#/Vol] Ordered By: Justice Singh on 05-17-2023 Platelets (Bld) [#/Vol] 143 10*3/uL 150-450 [facility] Potassium [Moles/volume] in Serum or PlasmaOrdered By: Justice Singh on 05-17-2023 Potassium [Moles/Vol] 5.0 mmol/L 3.5-5.1 [facility] Protein [Mass/volume] in Ser um or PlasmaOrdered By: Justice Singh on 05-17-2023 Protein [Mass/Vol] 6.4 g/dL 6.4-8.9 [facility] RBC Auto (Bld) [#/Vol]Ordere d By: Justice Singh on 05-17-2023 RBC (Bld) [#/Vol] 4.13 10*6/uL 3.90-5.60 [facility] Serum or plasma albumin/glob ulin mass ratioOrdered By: Justice Singh on 05-17-2023 Albumin/Globulin [Mass ratio] 1.6 {ratio} [facility] Serum or plasma anion gap de terminationOrdered By: Justice Singh on 05-17-2023 Anion gap [Moles/Vol] 9.6 mmol/L 6.0-15.0 [facility] Serum or plasma high density lipoprotein (HDL) cholesterol measurementOrdered By: Justice Singh on 05-17-2023 Cholesterol in HDL [Mass/Vol] 53 mg/dL 23-92 [facility] Comment on above: HDL CHOL ATP-III CLA SSIFICATION Cardiovascular RiskHDL > or equal to 60 mg/dL LOWHDL < 40 mg/dL HIGH Serum or plasma total choles terol/high density lipoprotein (HDL) cholesterol mass ratOrdered By: Justice Singh on 05-17-2023 Cholesterol.total/Chol esterol in HDL [Mass ratio] 2.9 {ratio} <5.0 [facility] Sodium [Moles/volume] in Ser um or PlasmaOrdered By: Justice Singh on 05-17-2023 Sodium [Moles/Vol] 142 mmol/L 136-145 [facility] Thyrotropin [Units/volume] i n Serum or PlasmaOrdered By: Justice Singh on 05-17-2023 TSH Qn 3.34 m[IU]/L 0.45-5.33 [facility] Triglyceride [Mass/volume] i n Serum or PlasmaOrdered By: Justice Singh on 05-17-2023 Triglyceride [Mass/Vol] 138 mg/dL 0-149 [facility] Comment on above: TRIG ATP III CLASSIF ICATIONTRIG less than 150 mg/dL NormalTRIG 150-199 mg/dL Borderline highTRIG 200-500 mg/dL High TRIG greater than 500 mg/dL Very highStandard traceable to the Center for Disease Conrtrol and Prevention (CDC) test method. 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) Angina, class I (413.9) (I20.9) Dyspnea (786.09) (R06.00) Former smoker (V15.82) (Z87.891) Quit 1961 Hyperlipemia (272.4) (E78.5) HTN (hypertension) (401.9) (I10) Overweight with body mass index (BMI) of 26 to 26.9 in adult (278.02,V85.22) (E66.3,Z68.26) DVT (deep venous thrombosis) (453.40) (I82.409) Diabetes mellitus (250.00) (E11.9) Orders CAD, multiple vessel, HTN (hypertension) Renew: Carvedilol 3.125 MG Oral Tablet; TAKE 1 TABLET TWICE DAILY WITH MEALS CAD, multiple vessel, Hyperlipemia Renew: Atorvastatin Calcium 20 MG Oral Tablet; TAKE 1 TABLET AT BEDTIME HTN (hypertension) Renew: Lisinopril 5 MG Oral Tablet; Take 1 tablet daily SocHx: Former smoker Tobacco Use Screening; Status:Complete; Done: [id number] Patient Instructions Please bring all medicines, vitamins, and herbal supplements with you when you come to the office. Prescriptions will not be filled unless you are compliant with your follow up appointments or have a follow up appointment scheduled as per instruction of your physician. Refills should be requested at the time of your visit. Follow up in 7-8 months Same meds Chief Complaint EVER MASON is being seen for a 6 month follow-up of. History of Present Illness Patient is here for follow-up and management for coronary artery disease with previous documentation of occlusion of the RCA and disease of small marginal branch based on remote heart cath, intermittent angina, hypertension, hyperlipidemia. Since last time I saw him he report he is feeling well. Described intermittent episode of chest pain but he reported it resolved with Tums. He denies lightheadedness, dizziness or syncope. He remains active. His recent abdominal ultrasound and lab work noted and reviewed with him ASSESSMENT: 1. Multivessel coronary artery disease. Anatomy is well known based on prior heart cath. He had occlusion of the RCA, which is chronic and occlusion of 2 small marginal branches. Recent stress test was negative 2 . Previous complain decreased exercise tolerance, dyspnea exertion, fatigue and intermittent episodes of chest pain resolved with nitroglycerin report improvement. No recurrence. 3. Hypertension, controlled. Bring him running a little bit on the higher range at home 4. Hyperlipidemia, controlled. LDL is 56 5. Previous history of orthostatic hypotension, resolved. 6. Abdominal aortic aneurysm, addressed by vascular surgery 7. Obesity with recent weight change 8. Prior diagnosis of distal DVT had received a total of 3-month of Eliquis. Has been off that with no recurrence RECOMMENDATION: 1. The patient was advised to continue present medical therapy 2 we discussed coronary risk factor modification 3. Patient was advised to notify me with change in cardiac status 4. Patient was counseled regarding losing weight and exercise. 5. I see him back in 6 months or earlier if the need arise decreased/tolerance, dyspnea exertion and anginal symptoms 6. I advised him if he develop any more chest pain will consider cardiac catheterization 7 I advised him to continue to follow his follow-up with his vascular surgeon Surgical History Problems History of Abdominal aortic aneurysm repair History of Complete colonoscopy History of Hand surgery History of Insertion of prostatic urethral lift implant History of Tonsillectomy Current Meds Medication NameInstruction Aspirin EC 81 MG TBECTAKE 1 TABLET DAILY. Atorvastatin Calcium 20 MG Oral TabletTAKE 1 TABLET AT BEDTIME. Carvedilol 3.125 MG Oral TabletTAKE 1 TABLET TWICE DAILY WITH MEALS. Clotrimazole 1 % External SolutionAPPLY AND GENTLY MASSAGE INTO AFFECTED AREA(S) TWICE DAILY. glipiZIDE 5 MG Oral TabletTake 1 tablet daily Isosorbide Mononitrate ER 30 MG Oral Tablet Extended Release 24 HourTAKE 1 TABLET BY MOUTH DAILY Levothyroxine Sodium 50 MCG Oral TabletTAKE 1 TABLET DAILY. Lisinopril 5 MG Oral TabletTake 1 tablet daily metFORMIN HCl - 1000 MG Oral TabletTAKE 1 TABLET 1000 MG IN THE AM AND TAKE 0.5 TABLET 500 MG IN THE PM. Montelukast Sodium 10 MG Oral TabletTAKE 1 TABLET DAILY. Multi Vitamin Oral TabletTAKE 1 TABLET DAILY. Nitroglycerin 0.4 MG Sublingual Tablet SublingualPLACE 1 TABLET UNDER THE TONGUE EVERY 5 MINUTES UP TO 3 DOSES NEEDED FOR CHEST PAIN. Allergies Medication No Known Drug Allergies Recorded By: Emily Kuhn; 01/30/2021 1:56:43 PM Social History Problems Former smoker (V15.82) (Z87.891) Quit 1961 No alcohol use No illicit drug use Occasional caffeine consumption Review of Systems Constitutional: not feeling tired. Cardiovascular: no intermittent leg claudication and as noted in HPI. Respiratory: no cough and no shortness of breath. Gastrointestinal: no change in bowel habits and no blood in stools. Integumentary: no skin rashes. Neurological: dizziness, but no seizures and no frequent falls. All o (more content not included)... Normal Testive Tobacco Screening.on 023 Adult depression screening assessment No [facility] [employer] [facility] [employer] DO Work Phone: Fall risk assessment a) No falls within the last year [facility] [employer] DO Work Phone: Tobacco use status [facility] b) No [facility] [employer] DO Work Phone: A1C HEMOGLOBINon 02-01-2023 HbA1c (Bld) [Mass fraction] 6.6 % [facility] Other HbA1c (Bld) [Mass fraction]o n 02-01-[address] [facility] Other Alanine aminotransferase [En zymatic activity/volume] in Serum or PlasmaOrdered By: Justice Singh on 09-21-2022 ALT [Catalytic activity/Vol] 13 U/L 7-52 [facility] Albumin [Mass/volume] in Ser um or Plasma by Bromocresol green (BCG) dye binding methoOrdered By: Justice Singh on 09-21-2022 Albumin BCG dye [Mass/Vol] 3.8 g/dL 3.5-5.7 [facility] Alkaline phosphatase [Enzyma tic activity/volume] in Serum or PlasmaOrdered By: Justice Singh on 09-21-2022 ALP [Catalytic activity/Vol] 89 U/L 34-104 [facility] Aspartate aminotransferase [ Enzymatic activity/volume] in Serum or PlasmaOrdered By: Justice Singh on 09-21-2022 AST [Catalytic activity/Vol] 16 U/L 13-39 [facility] Basophils Auto (Bld) [#/Vol] Ordered By: Justice Singh on 09-21-2022 Basophils (Bld) [#/Vol] 0.1 10*3/uL 0.0-0.2 [facility] Basophils/100 WBC Auto (Bld) Ordered By: Justice Singh on 09-21-2022 Basophils/100 WBC (Bld) 1.1 % . [facility] Bilirubin.total [Mass/volume ] in Serum or PlasmaOrdered By: Justice Singh on 09-21-2022 Bilirubin [Mass/Vol] 0.6 mg/dL 0.3-1.0 [facility] Calcium [Mass/volume] in Ser um or PlasmaOrdered By: Justice Singh on 09-21-2022 Calcium [Mass/Vol] 9.0 mg/dL 8.6-10.3 [facility] Carbon dioxide, total [Moles /volume] in Serum or PlasmaOrdered By: Justice Singh on 09-21-2022 CO2 [Moles/Vol] 26.6 mmol/L 21.0-31.0 [facility] Chloride [Moles/volume] in S albin or PlasmaOrdered By: Justice Singh on 09-21-2022 Chloride [Moles/Vol] 107 mmol/L 98-107 [facility] Cholesterol [Mass/volume] in Serum or PlasmaOrdered By: Justice Singh on 09-21-2022 Cholesterol [Mass/Vol] 128 mg/dL 140-200 [facility] Comment on above: Chol less than 200 m g/dl low riskChol 201-239 mg/dl borderline riskChol 240 mg/dl and greater high risk Cholesterol in LDL Calc [Mas s/Vol]Ordered By: Justice Singh on 09-21-2022 Cholesterol in LDL [Mass/Vol] 56 mg/dL 0-100 [facility] Comment on above: LDL ATP III CLASSIFI CATIONLDL less than 100 mg/dL OptimalLDL 100-129 mg/dL Near or above optimalLDL 130-159 mg/dL Borderline highLDL 160-189 mg/dL HighLDL greater than 189 mg/dL Very high Cholesterol in VLDL Calc [Ma ss/Vol]Ordered By: Justice Singh on 09-21-2022 Cholesterol in VLDL [Mass/Vol] 26 mg/dL [facility] Creatinine [Mass/volume] in Serum or PlasmaOrdered By: Justice Singh on 09-21-2022 Creatinine [Mass/Vol] 1.36 mg/dL 0.70-1.30 [facility] Eosinophils Auto (Bld) [#/Vo l]Ordered By: Justice Singh on 09-21-2022 Eosinophils (Bld) [#/Vol] 0.1 10*3/uL 0.0-0.45 [facility] Eosinophils/100 WBC Auto (Bl d)Ordered By: Justice Singh on 09-21-2022 Eosinophils/100 WBC (Bld) 2.3 % . [facility] Erythrocyte distribution wid th Auto (RBC) [Ratio]Ordered By: Justice Singh on 09-21-2022 Erythrocyte distribution width (RBC) [Ratio] 14.0 % 12.0-14.8 [facility] Globulin Calc (S) [Mass/Vol] Ordered By: Justice Singh on 09-21-2022 Globulin (S) [Mass/Vol] 2.1 g/dL [facility] Glucose [Mass/volume] in Ser um or PlasmaOrdered By: Justice Singh on 09-21-2022 Glucose [Mass/Vol] 92 mg/dL 70-100 [facility] Comment on above: ADA recommended refe rence rangeRandom Glucose Reference Range is dependent on time and content of last meal. Glucose of more than 200 mg/dL in a nonstressed, ambulatory subject supports the diagnosis of Diabetes Mellitus. Hematocrit Auto (Bld) [Volum e fraction]Ordered By: Justice Singh on 09-21-2022 Hematocrit (Bld) [Volume fraction] 38.9 % 38.8-50.0 [facility] Hemoglobin [Mass/volume] in BloodOrdered By: Justice Singh on 09-21-2022 Hemoglobin (Bld) [Mass/Vol] 12.8 g/dL 13.0-17.0 [facility] Leukocytes [#/volume] correc yana for nucleated erythrocytes in Blood by Automated counOrdered By: Justice Singh on 09-21-2022 WBC corrected for nucl RBC Auto (Bld) [#/Vol] 6.1 10*3/uL 4.1-10.5 [facility] Lymphocytes Auto (Bld) [#/Vo l]Ordered By: Justice Singh on 09-21-2022 Lymphocytes (Bld) [#/Vol] 1.5 10*3/uL 1.00-4.8 [facility] Lymphocytes/100 WBC Auto (Bl d)Ordered By: Justice Singh on 09-21-2022 Lymphocytes/100 WBC (Bld) 24.7 % . [facility] MCH Auto (RBC) [Entitic mass ]Ordered By: Justice Singh on 09-21-2022 MCH (RBC) [Entitic mass] 30.8 pg 27.5-35.2 [facility] MCHC Auto (RBC) [Mass/Vol]Or dered By: Justice Singh on 09-21-2022 MCHC (RBC) [Mass/Vol] 32.9 g/dL 32.5-35.6 [facility] MCV Auto (RBC) [Entitic vol] Ordered By: Justice Singh on 09-21-2022 MCV (RBC) [Entitic vol] 93.6 fL 83.5-101 [facility] Monocytes Auto (Bld) [#/Vol] Ordered By: Justice Singh on 09-21-2022 Monocytes (Bld) [#/Vol] 0.5 10*3/uL 0.0-0.8 [facility] Monocytes/100 WBC Auto (Bld) Ordered By: Justice Singh on 09-21-2022 Monocytes/100 WBC (Bld) 8.9 % . [facility] Neutrophils Auto (Bld) [#/Vo l]Ordered By: Justice Singh on 09-21-2022 Neutrophils (Bld) [#/Vol] 3.8 10*3/uL 1.8-7.7 [facility] Neutrophils/100 WBC Auto (Bl d)Ordered By: Justice Singh on 09-21-2022 Neutrophils/100 WBC (Bld) 63.0 % . [facility] No Panel InformationOrdered By: Justice Singh on 09-21-2022 Estimated GFR (CKD-EPI) 50.681 mL/Min [facility] Creatinine Clearance (Chem N/A [facility] Nucleated erythrocytes [Pres ence] in Blood by Automated countOrdered By: Justice Singh on 09-21-2022 Nucleated RBC Auto Ql (Bld) 0.1 /100{WBC} 0-0.5 [facility] Platelet mean volume Auto (B ld) [Entitic vol]Ordered By: Justice Singh on 09-21-2022 Platelet mean volume (Bld) [Entitic vol] 8.9 fL 6.6-10.1 [facility] Platelets Auto (Bld) [#/Vol] Ordered By: Justice Singh on 09-21-2022 Platelets (Bld) [#/Vol] 142 10*3/uL 150-450 [facility] Potassium [Moles/volume] in Serum or PlasmaOrdered By: Justice Singh on 09-21-2022 Potassium [Moles/Vol] 4.9 mmol/L 3.5-5.1 [facility] Protein [Mass/volume] in Ser um or PlasmaOrdered By: Justice Singh on 09-21-2022 Protein [Mass/Vol] 5.9 g/dL 6.4-8.9 [facility] RBC Auto (Bld) [#/Vol]Ordere d By: Justice Singh on 09-21-2022 RBC (Bld) [#/Vol] 4.15 10*6/uL 3.90-5.60 [facility] Serum or plasma albumin/glob ulin mass ratioOrdered By: Justice Singh on 09-21-2022 Albumin/Globulin [Mass ratio] 1.8 {ratio} [facility] Serum or plasma anion gap de terminationOrdered By: Justice Singh on 09-21-2022 Anion gap [Moles/Vol] 12.3 mmol/L 6.0-15.0 [facility] Serum or plasma high density lipoprotein (HDL) cholesterol measurementOrdered By: Justice Singh on 09-21-2022 Cholesterol in HDL [Mass/Vol] 46 mg/dL 29-71 [facility] Comment on above: HDL CHOL ATP-III CLA SSIFICATION Cardiovascular RiskHDL > or equal to 60 mg/dL LOWHDL < 40 mg/dL HIGH Serum or plasma total choles terol/high density lipoprotein (HDL) cholesterol mass ratOrdered By: Justice Singh on 09-21-2022 Cholesterol.total/Chol esterol in HDL [Mass ratio] 2.8 {ratio} <5.0 [facility] Sodium [Moles/volume] in Ser um or PlasmaOrdered By: Justice Singh on 09-21-2022 Sodium [Moles/Vol] 141 mmol/L 136-145 [facility] Thyrotropin [Units/volume] i n Serum or PlasmaOrdered By: Justice Singh on 09-21-2022 TSH Qn 3.50 m[IU]/L 0.45-5.33 [facility] Triglyceride [Mass/volume] i n Serum or PlasmaOrdered By: Justice Singh on 09-21-2022 Triglyceride [Mass/Vol] 131 mg/dL 0-149 [facility] Comment on above: TRIG ATP III CLASSIF ICATIONTRIG less than 150 mg/dL NormalTRIG 150-199 mg/dL Borderline highTRIG 200-500 mg/dL High TRIG greater than 500 mg/dL Very highStandard traceable to the Center for Disease Conrtrol and Prevention (CDC) test method. 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) DVT (deep venous thrombosis) (453.40) (I82.409) Former smoker (V15.82) (Z87.891) Quit 1962 HTN (hypertension) (401.9) (I10) Hyperlipemia (272.4) (E78.5) Dyspnea (786.09) (R06.00) Diabetes mellitus (250.00) (E11.9) Aneurysm of abdominal aorta (441.4) (I71.40) Overweight with body mass index (BMI) of 26 to 26.9 in adult (278.02,V85.22) (E66.3,Z68.26) Orders HTN (hypertension) Renew: Lisinopril 5 MG Oral Tablet; Take 1 tablet daily Overweight with body mass index (BMI) of 26 to 26.9 in adult Healthy Weight Tips; Status:Complete - Retrospective Authorization; Done: 06Aug2022 Basic Metabolic Panel; Status:Active - Retrospective Authorization; Requested for:16Aug2022; Some eating tips that can help you lose weight.; Status:Complete - Retrospective Authorization; Done: 06Aug2022 SocHx: Former smoker Tobacco Use Screening; Status:Complete; Done: 06Aug2022 Patient Instructions Please bring all medicines, vitamins, and herbal supplements with you when you come to the office. Prescriptions will not be filled unless you are compliant with your follow up appointments or have a follow up appointment scheduled as per instruction of your physician. Refills should be requested at the time of your visit. Follow up in 6 months The provider reviewed the following test(s) and result(s) with the patient: echocardiogram, laboratory tests and Myocardial perfusion study Chief Complaint EVER MASON is being seen for a 6 month follow-up of. History of Present Illness Patient is here for follow-up and management for coronary artery disease with documentation of multivessel disease with occlusion of RCA and chronic occlusion of 2 small marginal branches and occasional angina. He underwent recently a stress test that showed no significant myocardial ischemia. Patient report he feels well. He denies lightheadedness, dizziness or syncope. He describes a brief episode of musculoskeletal type of sudden onset chest pain such with mild bruising suggestive of probable muscular strain or microrupture. ASSESSMENT: 1. Multivessel coronary artery disease. Anatomy is well known based on prior heart cath. He had occlusion of the RCA, which is chronic and occlusion of 2 small marginal branches. Recent stress test was negative 2 . Previous complain decreased exercise tolerance, dyspnea exertion, fatigue and intermittent episodes of chest pain resolved with nitroglycerin report improvement 3. Hypertension, controlled. Bring him running a little bit on the higher range at home 4. Hyperlipidemia, controlled. 5. Previous history of orthostatic hypotension, resolved. 6. Abdominal aortic aneurysm, addressed by vascular surgery 7. Obesity with recent weight change 8. Prior diagnosis of distal DVT had received a total of 3-month of Eliquis. Has been off that with no recurrence RECOMMENDATION: 1. The patient was advised to continue present medical therapy did advise him to increase his Coreg to 6.25 twice daily 2. I did his recent stress test 3. Patient was advised to notify me with change in cardiac status 4. Patient was counseled regarding losing weight and exercise. 5. I see him back in 6 months or earlier if the need arise decreased/tolerance, dyspnea exertion and anginal symptoms 6. Follow-up in 6 months Surgical History Problems History of Abdominal aortic aneurysm repair History of Complete colonoscopy History of Hand surgery History of Insertion of prostatic urethral lift implant History of Tonsillectomy Current Meds Medication NameInstruction Aspirin EC 81 MG Oral Tablet Delayed ReleaseTAKE 1 TABLET DAILY. Atorvastatin Calcium 20 MG Oral TabletTAKE 1 TABLET AT BEDTIME. Carvedilol 3.125 MG Oral TabletTAKE 1 TABLET TWICE DAILY WITH MEALS. Clotrimazole 1 % External SolutionAPPLY AND GENTLY MASSAGE INTO AFFECTED AREA(S) TWICE DAILY. glipiZIDE 5 MG Oral TabletTake 1 tablet daily Isosorbide Mononitrate ER 30 MG Oral Tablet Extended Release 24 HourTAKE 1 TABLET DAILY. Levothyroxine Sodium 50 MCG Oral TabletTAKE 1 TABLET DAILY. Lisinopril 2.5 MG Oral TabletTAKE 1 TABLET DAILY. metFORMIN HCl - 1000 MG Oral TabletTAKE 1 TABLET 1000 MG IN THE AM AND TAKE 0.5 TABLET 500 MG IN THE PM. Montelukast Sodium 10 MG Oral TabletTAKE 1 TABLET DAILY. Multi Vitamin Oral TabletTAKE 1 TABLET DAILY. Nitroglycerin 0.4 MG Sub[address]ual Tablet SublingualPLACE 1 TABLET UNDER THE TONGUE EVERY 5 MINUTES UP TO 3 DOSES NEEDED FOR CHEST PAIN. Allergies Medication No Known Drug Allergies Recorded By: Emily Kuhn; 01/30/2021 1:56:43 PM Social History Problems Former smoker (V15.82) (Z87.891) Quit 1961 No alcohol use No illicit drug use Occasional caffeine consumption Review of Systems Constitutional: not feeling tired. Cardiovascular: no intermittent leg claudication and as noted in HPI. Respiratory: shortness of (more content not included)... Normal [facility] [employer] XR shoulder LT min 2V*on XR shoulder LT min 2V* [facility] [employer] Other XR shoulder LT min 2V* [facility] [employer] Other XR shoulder LT min 2V* [address] [place] [address] [employer] Other XR shoulder LT min 2V* [place] [id number] [employer] Other XR shoulder LT min 2V* XRay Report N [facility] [employer] Other XR shoulder LT min 2V* Signed No rt [employer] Other XR shoulder LT min 2V* Patient: Ever Mason MR#: [id number] [place] [employer] Other XR shoulder LT min 2V* 6[address] No rt [employer] Other XR shoulder LT min 2V* : 1935 Acct:[id number] [employer] Other XR shoulder LT min 2V* Age/Sex: 86 / M A DM Date: 07/15/22 [employer] Other XR shoulder LT min 2V* Loc: XD Room: Typ e: [facility] [employer] Other XR shoulder LT min 2V* Attending Dr: Eveline Singh DO [employer] Other XR shoulder LT min 2V* Copies to: Justice Singh DO [employer] Other XR shoulder LT min 2V* Ordering Provider : Justice Singh DO [employer] Other XR shoulder LT min 2V* Date of Service: 07/15/22 [employer] Other XR shoulder LT min 2V* XR/XR shoulder LT min 2V*: Left shoulder pain [employer] Other XR shoulder LT min 2V* ([id number]) XR/ XR cervical spine 5V*: Left shoulder pain [employer] Other XR shoulder LT min 2V* CLINICAL DATA: Le ft shoulder pain for the past few days after patient felt a pop while sitting on [employer] Other XR shoulder LT min 2V* the couch. Pain i nitially radiated up to the neck. [employer] Other XR shoulder LT min 2V* CERVICAL SPINE - 5 views: [employer] Other XR shoulder LT min 2V* COMPARISON: None [employer] Other XR shoulder LT min 2V* AP, lateral, both oblique and odontoid views were obtained. There is osteopenia. No acute [employer] Other XR shoulder LT min 2V* fractures are not ed. There is approximately 3 mm of anterolisthesis of C3 on C4. There is posterio [employer] Other XR shoulder LT min 2V* r disc space narr owing at that level. There is moderate disc space narrowing from C4-5 down. There [employer] Other XR shoulder LT min 2V* is endplate spurr ing and prominent bilateral facet disease. On the right, there is mild to moderate [employer] Other XR shoulder LT min 2V* bony foraminal encroachment at C5-6 and C6-7. There is also minor bony foraminal encroachment at [employer] Other XR shoulder LT min 2V* C3-4 and C4-5. On the left, there is moderate bony foraminal encroachment at C3-4, mild to moderate [employer] Other XR shoulder LT min 2V* at C5-6 and mild at C4-5. The atlantoaxial relationship is maintained. There is no prevertebral [employer] Other XR shoulder LT min 2V* soft tissue swelling. [employer] Other XR shoulder LT min 2V* 8 XR/XR cervical spine 5V* [employer] Other XR shoulder LT min 2V* IMPRESSION: N [employer] Other XR shoulder LT min 2V* OSTEOPENIA. N [employer] Other XR shoulder LT min 2V* MULTILEVEL DISCOV ERTEBRAL DEGENERATIVE CHANGES [employer] Other XR shoulder LT min 2V* LEFT SHOULDER - 3 views [employer] Other XR shoulder LT min 2V* COMPARISON: Chest x-ray 05/06/2020 [employer] Other XR shoulder LT min 2V* AP, Y and Grashey views were obtained. There is osteopenia. There is no evidence of fracture or [employer] Other XR shoulder LT min 2V* dislocation. Ther e is mild to moderate degenerative change at the acromioclavicular joint where a [employer] Other XR shoulder LT min 2V* bony ossicle is s een superiorly. This was also present on the prior chest x-ray. There are no [employer] Other XR shoulder LT min 2V* significant soft tissue abnormalities. [employer] Other XR shoulder LT min 2V* NO ACUTE BONY FINDINGS. [employer] Other XR shoulder LT min 2V* Impression dictat ed by: Avis Cardenas M.D.07/15/2022 3:22 PM [employer] Other XR shoulder LT min 2V* Dictation Locatio n: [id number] [employer] Other XR shoulder LT min 2V* Transcribed By: Sophia MAY 07/15/22 1522 [employer] Other XR shoulder LT min 2V* Dictated By: Venus Cardenas MD 07/15/22 1515 [employer] Other XR shoulder LT min 2V* Signed By: No rt [employer] Other XR shoulder LT min 2V* 07/15/22 1522 [employer] Other Basophils Auto (Bld) [#/Vol] Ordered By: Justice Singh on 05-19-2022 Basophils (Bld) [#/Vol] 0.0 10*3/uL 0.0-0.2 [facility] Basophils/100 WBC Auto (Bld) Ordered By: Justice Singh on 05-19-2022 Basophils/100 WBC (Bld) 0.6 % . [facility] Body fluid albumin measureme nt (mass/volume)Ordered By: Justice Singh on 05-19-2022 Albumin (Body fld) [Mass/Vol] 3.7 g/dL 3.2-5.5 [facility] Creatinine and Glomerular fi ltration rate.predicted panel (S/P/Bld)Ordered By: Justice Singh on 05-19-2022 Creatinine [Mass/Vol] 1.58 mg/dL 0.64-1.27 [facility] Eosinophils Auto (Bld) [#/Vo l]Ordered By: Justice Singh on 05-19-2022 Eosinophils (Bld) [#/Vol] 0.1 10*3/uL 0.0-0.45 [facility] Eosinophils/100 WBC Auto (Bl d)Ordered By: Justice Singh on 05-19-2022 Eosinophils/100 WBC (Bld) 2.3 % . [facility] Erythrocyte distribution wid th Auto (RBC) [Ratio]Ordered By: Justice Singh on 05-19-2022 Erythrocyte distribution width (RBC) [Ratio] 13.7 % 12.0-14.8 [facility] Estimated glomerular filtrat ion rate (GFR) non- AmericanOrdered By: Justice Singh on 05-19-2022 GFR/1.73 sq M.predicted among non-blacks MDRD (S/P/Bld) [Vol rate/Area] 42 mL/Min [facility] Ferritin [Mass/volume] in Se rum or PlasmaOrdered By: Justice Singh on 05-19-2022 Ferritin [Mass/Vol] 54.6 ng/mL 23.9-336.2 [facility] Globulin Calc (S) [Mass/Vol] Ordered By: Justice Singh on 05-19-2022 Globulin (S) [Mass/Vol] 2.5 g/dL [facility] Glucose mean value [Mass/vol ume] in Blood Estimated from glycated hemoglobinOrdered By: Justice Singh on 05-19-2022 Average glucose Estimated from glycated hemoglobin (Bld) [Mass/Vol] 171 mg/dL [facility] Hematocrit Auto (Bld) [Volum e fraction]Ordered By: Justice Singh on 05-19-2022 Hematocrit (Bld) [Volume fraction] 39.7 % 38.8-50.0 [facility] Hemoglobin A1c percentageOrd ered By: Justice Singh on 05-19-2022 HbA1c (Bld) [Mass fraction] 7.6 % 4.3-5.6 [facility] Comment on above: Increased risk for d iabetes: 5.7 - 6.4diabetes: >6.4glycemic control for adults with diabetes: <7.0 Hemoglobin [Mass/volume] in BloodOrdered By: Justice Singh on 05-19-2022 Hemoglobin (Bld) [Mass/Vol] 13.0 g/dL 13.0-17.0 [facility] Leukocytes [#/volume] correc yana for nucleated erythrocytes in Blood by Automated counOrdered By: Justice Singh on 05-19-2022 WBC corrected for nucl RBC Auto (Bld) [#/Vol] 6.3 10*3/uL 4.1-10.5 [facility] Lymphocytes Auto (Bld) [#/Vo l]Ordered By: Justice Singh on 05-19-2022 Lymphocytes (Bld) [#/Vol] 1.6 10*3/uL 1.00-4.8 [facility] Lymphocytes/100 WBC Auto (Bl d)Ordered By: Justice Singh on 05-19-2022 Lymphocytes/100 WBC (Bld) 25.3 % . [facility] MCH Auto (RBC) [Entitic mass ]Ordered By: Justice Sinhg on 05-19-2022 MCH (RBC) [Entitic mass] 31.0 pg 27.5-35.2 [facility] MCHC Auto (RBC) [Mass/Vol]Or dered By: Justice Singh on 05-19-2022 MCHC (RBC) [Mass/Vol] 32.7 g/dL 32.5-35.6 [facility] MCV Auto (RBC) [Entitic vol] Ordered By: Justice Singh on 05-19-2022 MCV (RBC) [Entitic vol] 94.8 fL 83.5-101 [facility] Monocytes Auto (Bld) [#/Vol] Ordered By: Justice Singh on 05-19-2022 Monocytes (Bld) [#/Vol] 0.6 10*3/uL 0.0-0.8 [facility] Monocytes/100 WBC Auto (Bld) Ordered By: Justice Singh on 05-19-2022 Monocytes/100 WBC (Bld) 9.5 % . [facility] Neutrophils Auto (Bld) [#/Vo l]Ordered By: Justice Singh on 05-19-2022 Neutrophils (Bld) [#/Vol] 4.0 10*3/uL 1.8-7.7 [facility] Neutrophils/100 WBC Auto (Bl d)Ordered By: Justice Singh on 05-19-2022 Neutrophils/100 WBC (Bld) 62.3 % . [facility] No Panel InformationOrdered By: Justice Singh on 05-19-2022 Estimated GFR () 51 mL/Min [facility] Comment on above: GFR estimated refere nce range: According to KDOQI guidelines, <60 ml/min/1.73m2 is sufficient to diagnose a patient with chronic kidney disease. Pharmacy Creatinine Clearance (Chem N/A [facility] Nucleated erythrocytes [Pres ence] in Blood by Automated countOrdered By: Justice Singh on 05-19-2022 Nucleated RBC Auto Ql (Bld) 0.2 /100{WBC} 0-0.5 [facility] Platelet mean volume Auto (B ld) [Entitic vol]Ordered By: Justice Singh on 05-19-2022 Platelet mean volume (Bld) [Entitic vol] 9.2 fL 6.6-10.1 [facility] Platelets Auto (Bld) [#/Vol] Ordered By: Justice Singh on 05-19-2022 Platelets (Bld) [#/Vol] 157 10*3/uL 150-450 [facility] Protein [Mass/volume] in Ser um or PlasmaOrdered By: Justice Singh on 05-19-2022 Protein [Mass/Vol] 6.2 g/dL 6.1-7.9 [facility] RBC Auto (Bld) [#/Vol]Ordere d By: Justice Singh on 05-19-2022 RBC (Bld) [#/Vol] 4.19 10*6/uL 3.90-5.60 [facility] Serum or plasma alanine vidal otransferase measurement without P-5'-P (enzymatic activiOrdered By: Justice Singh on 05-19-2022 ALT No additional P-5'-P [Catalytic activity/Vol] 20 U/L 10-60 [facility] Serum or plasma albumin/glob ulin mass ratioOrdered By: Justice Singh on 05-19-2022 Albumin/Globulin [Mass ratio] 1.5 {ratio} [facility] Serum or plasma alkaline rocío sphatase measurement (enzymatic activity/volume)Ordered By: Justice Singh on 05-19-2022 ALP [Catalytic activity/Vol] 90 U/L 32-92 [facility] Serum or plasma anion gap de terminationOrdered By: Justice Singh on 05-19-2022 Anion gap [Moles/Vol] 12.3 mmol/L 6.0-15.0 [facility] Serum or plasma aspartate am inotransferase measurement (enzymatic activity/volume)Ordered By: Justice Singh on 05-19-2022 AST [Catalytic activity/Vol] 20 U/L 10-42 [facility] Serum or plasma calcium kathie urement (mass/volume)Ordered By: Justice Singh on 05-19-2022 Calcium [Mass/Vol] 9.4 mg/dL 8.2-10.2 [facility] Serum or plasma chloride osito surement (moles/volume)Ordered By: Justice Singh on 05-19-2022 Chloride [Moles/Vol] 108 mmol/L 95-114 [facility] Serum or plasma glucose kathie urement (mass/volume)Ordered By: Justice Singh on 05-19-2022 Glucose [Mass/Vol] 100 mg/dL 70-100 [facility] Comment on above: ADA recommended refe rence rangeRandom Glucose Reference Range is dependent on time and content of last meal. Glucose of more than 200 mg/dL in a nonstressed, ambulatory subject supports the diagnosis of Diabetes Mellitus. Serum or plasma potassium me asurement (moles/volume)Ordered By: Justice Singh on 05-19-2022 Potassium [Moles/Vol] 4.5 mmol/L 3.5-5.1 [facility] Serum or plasma sodium measu rement (moles/volume)Ordered By: Justice Singh on 05-19-2022 Sodium [Moles/Vol] 139 mmol/L 136-146 [facility] Serum or plasma total biliru bin measurement (mass/volume)Ordered By: Justice Singh on 05-19-2022 Bilirubin [Mass/Vol] 0.7 mg/dL 0.3-1.2 [facility] Serum or plasma total carbon dioxide measurement (moles/volume)Ordered By: Justice Singh on 05-19-2022 CO2 [Moles/Vol] 23.2 mmol/L 22.0-30.0 [facility] Serum or plasma urea nitroge n measurement (mass/volume)Ordered By: Justice Singh on 05-19-2022 Urea nitrogen [Mass/Vol] 31 mg/dL 9-23 [facility] WBC Auto (Bld) [#/Vol]Ordere d By: Justice Singh on 05-19-2022 WBC (Bld) [#/Vol] 6.3 10*3/uL 4.1-10.[address] [facility] CARDIAC STRESS/REST INJE CTIONon 02-22-2022 [facility] CARDIAC STRESS/REST INJECTION Patient Name: EVER MASON STUDY: MYOCARDIAL PERFUSION STRESS TEST WITH LEXISCAN Performing facility: [facility], [address] [place] [address], [address], [place], [place] [address] Provider: Mayra Person MD PCP: Dr. Justice Singh Supervising provider: Char Mora RN, [employer] INDICATION: Angina CAD; Dyspnea HISTORY: Gender: M; Age: 86 y/o ; Height: 0 cm; Weight: 81.364375 kg. CAD; High Cholesterol; Diabetes; HTN; angina dyspnea Quit smoking 60 years ago. Cardiac catheterization on 2013. PTCA on 2013. COMPARISON: Previous nuclear testing completed at [facility]. ACCESSION NUMBER(S): [id number]; [id number]; [id number] ORDERING CLINICIAN: MAYRA PERSON TECHNIQUE: ONE DAY protocol. Stress injection: Date:02-22-22, 34.6 mCi of Myoview IV 20 seconds after rapid injection of Lexiscan. Rest injection: Date: 02-22-22, 11.8 mCi of Myoview IV at rest. The patient had a rapid injection of 0.4 mg of Lexiscan IV over 10 seconds. Imaging was performed by gated tomographic technique. Reason for Lexiscan: dizziness/unsteady/fall risk STRESS TEST DATA: Resting heart rate was 57 BPM. Resting blood pressure was 126/80 mmHg. Peak blood pressure was 122/72 mmHg. Peak heart rate was 93 BPM. Aminophylline given 50mg IV. TEST TERMINATED DUE TO: Protocol completed FINDINGS: STRESS TEST RESULTS: Resting electrocardiogram revealed normal sinus rhythm. There were no significant ischemic ECG changes or dysrhythmias. The patient did not have chest pains/symptoms during procedure. There was a normal recovery phase. IMAGING RESULTS: Image quality was good. Rest and stress tomographic images were reviewed and revealed normal perfusion without evidence of ischemia, myocardial infarction, or left ventricular dilatation with stress. Overall left ventricular systolic function appeared to be normal without regional wall motion abnormalities. Ejection fraction was 65%. TID is 1.06 and is normal. There were no evidence of attenuation artifact. IMPRESSION: Normal Lexiscan Myoview cardiac perfusion stress test. No evidence of ischemia or myocardial infarction by perfusion imaging. Normal left ventricular systolic function, ejection fraction 65%. When compared to previous study minor changes noted. Previous study reported questionable area of inferoapical ischemia. Electronically signed by: MAYRA PERSON MD Normal [facility] No Panel Informationon 02-22 Normal -[facility] y [address] DO Work Phone: Albumin [Mass/volume] in Ser um or PlasmaOrdered By: Justice Singh on 02-17-2022 Albumin [Mass/Vol] 3.3 g/dL 3.2-5.5 [facility] Basophils Auto (Bld) [#/Vol] Ordered By: Justice Singh on 02-17-2022 Basophils (Bld) [#/Vol] 0.1 10*3/uL 0.0-0.2 [facility] Basophils/100 WBC Auto (Bld) Ordered By: Justice Singh on 02-17-2022 Basophils/100 WBC (Bld) 1.0 % . [facility] Blood hemoglobin measurement (mass/volume)Ordered By: Justice Singh on 02-17-2022 Hemoglobin (Bld) [Mass/Vol] 12.4 g/dL 13.0-17.0 [facility] Blood leukocytes automated c ount (number/volume)Ordered By: Justice Singh on 02-17-2022 WBC (Bld) [#/Vol] 6.4 10*3/uL 4.5-11.0 [facility] Cholesterol [Mass/volume] in Serum or PlasmaOrdered By: Justice Singh on 02-17-2022 Cholesterol [Mass/Vol] 117 mg/dL 140-200 [facility] Comment on above: Chol less than 200 m g/dl low riskChol 201-239 mg/dl borderline riskChol 240 mg/dl and greater high risk Cholesterol in LDL Calc [Mas s/Vol]Ordered By: Justice Singh on 02-17-2022 Cholesterol in LDL [Mass/Vol] 58 mg/dL 0-100 [facility] Comment on above: LDL ATP III CLASSIFI CATIONLDL less than 100 mg/dL OptimalLDL 100-129 mg/dL Near or above optimalLDL 130-159 mg/dL Borderline highLDL 160-189 mg/dL HighLDL greater than 189 mg/dL Very high Cholesterol in VLDL Calc [Ma ss/Vol]Ordered By: uJstice Singh on 02-17-2022 Cholesterol in VLDL [Mass/Vol] 16 mg/dL [facility] Creatinine and Glomerular fi ltration rate.predicted panel (S/P/Bld)Ordered By: Justice Singh on 02-17-2022 Creatinine [Mass/Vol] 1.50 mg/dL 0.64-1.27 [facility] Eosinophils Auto (Bld) [#/Vo l]Ordered By: Justice Singh on 02-17-2022 Eosinophils (Bld) [#/Vol] 0.1 10*3/uL 0.0-0.45 [facility] Eosinophils/100 WBC Auto (Bl d)Ordered By: Justice Singh on 02-17-2022 Eosinophils/100 WBC (Bld) 2.1 % . [facility] Erythrocyte distribution wid th Auto (RBC) [Ratio]Ordered By: Justice Singh on 02-17-2022 Erythrocyte distribution width (RBC) [Ratio] 13.9 % 12.0-14.8 [facility] Estimated glomerular filtrat ion rate (GFR) non- AmericanOrdered By: Justice Singh on 02-17-2022 GFR/1.73 sq M.predicted among non-blacks MDRD (S/P/Bld) [Vol rate/Area] 44 mL/Min [facility] Globulin Calc (S) [Mass/Vol] Ordered By: Justice Singh on 02-17-2022 Globulin (S) [Mass/Vol] 3.0 g/dL [facility] Hematocrit Auto (Bld) [Volum e fraction]Ordered By: Justice Singh on 02-17-2022 Hematocrit (Bld) [Volume fraction] 37.6 % 38.8-50.0 [facility] Laboratory - Hematology and Cell countsOrdered By: Justice Singh on 02-17-2022 Nucleated RBC/100 WBC (Bld) [Ratio] 0.1 % 0-0.5 [facility] Lymphocytes Auto (Bld) [#/Vo l]Ordered By: Justice Singh on 02-17-2022 Lymphocytes (Bld) [#/Vol] 1.3 10*3/uL 1.00-4.8 [facility] Lymphocytes/100 WBC Auto (Bl d)Ordered By: Justice Singh on 02-17-2022 Lymphocytes/100 WBC (Bld) 19.8 % . [facility] MCH Auto (RBC) [Entitic mass ]Ordered By: Justice Singh on 02-17-2022 MCH (RBC) [Entitic mass] 31.0 pg 27.5-35.2 [facility] MCHC Auto (RBC) [Mass/Vol]Or dered By: Justice Singh on 02-17-2022 MCHC (RBC) [Mass/Vol] 32.9 g/dL 32.5-35.6 [facility] MCV Auto (RBC) [Entitic vol] Ordered By: Justice Singh on 02-17-2022 MCV (RBC) [Entitic vol] 94.2 fL 83.5-101 [facility] Monocytes Auto (Bld) [#/Vol] Ordered By: Justice Singh on 02-17-2022 Monocytes (Bld) [#/Vol] 0.5 10*3/uL 0.0-0.8 [facility] Monocytes/100 WBC Auto (Bld) Ordered By: Justice Singh on 02-17-2022 Monocytes/100 WBC (Bld) 8.2 % . [facility] Neutrophils Auto (Bld) [#/Vo l]Ordered By: Justice Singh on 02-17-2022 Neutrophils (Bld) [#/Vol] 4.4 10*3/uL 1.8-7.7 [facility] Neutrophils/100 WBC Auto (Bl d)Ordered By: Justice Singh on 02-17-2022 Neutrophils/100 WBC (Bld) 68.9 % . [facility] No Panel InformationOrdered By: Justice Singh on 02-17-2022 Estimated GFR () 54 mL/Min [facility] Comment on above: GFR estimated refere nce range: According to KDOQI guidelines, <60 ml/min/1.73m2 is sufficient to diagnose a patient with chronic kidney disease. Pharmacy Creatinine Clearance (Chem N/A [facility] Platelet mean volume Auto (B ld) [Entitic vol]Ordered By: Justice Singh on 02-17-2022 Platelet mean volume (Bld) [Entitic vol] 9.3 fL 6.6-10.1 [facility] Platelets Auto (Bld) [#/Vol] Ordered By: Justice Singh on 02-17-2022 Platelets (Bld) [#/Vol] 184 10*3/uL 150-450 [facility] Protein [Mass/volume] in Ser um or PlasmaOrdered By: Justice Singh on 02-17-2022 Protein [Mass/Vol] 6.3 g/dL 6.1-7.9 [facility] RBC Auto (Bld) [#/Vol]Ordere d By: Justice Singh on 02-17-2022 RBC (Bld) [#/Vol] 3.99 10*6/uL 3.90-5.60 [facility] Serum or plasma alanine vidal otransferase measurement without P-5'-P (enzymatic activiOrdered By: Justice Singh on 02-17-2022 ALT No additional P-5'-P [Catalytic activity/Vol] 18 U/L 10-60 [facility] Serum or plasma albumin/glob ulin mass ratioOrdered By: Justice Singh on 02-17-2022 Albumin/Globulin [Mass ratio] 1.1 {ratio} [facility] Serum or plasma alkaline rocío sphatase measurement (enzymatic activity/volume)Ordered By: Justice Singh on 02-17-2022 ALP [Catalytic activity/Vol] 88 U/L 32-92 [facility] Serum or plasma anion gap de terminationOrdered By: Justice Singh on 02-17-2022 Anion gap [Moles/Vol] 12.7 mmol/L 6.0-15.0 [facility] Serum or plasma aspartate am inotransferase measurement (enzymatic activity/volume)Ordered By: Justice Singh on 02-17-2022 AST [Catalytic activity/Vol] 19 U/L 10- [facility] Serum or plasma calcium kathie urement (mass/volume)Ordered By: Justice Singh on 02-17-2022 Calcium [Mass/Vol] 9.2 mg/dL 8.2-10.2 [facility] Serum or plasma chloride osito surement (moles/volume)Ordered By: Justice Singh on 02-17-2022 Chloride [Moles/Vol] 105 mmol/L 95-114 [facility] Serum or plasma glucose kathie urement (mass/volume)Ordered By: Justice Singh on 02-17-2022 Glucose [Mass/Vol] 113 mg/dL 70-100 [facility] Comment on above: ADA recommended refe rence rangeRandom Glucose Reference Range is dependent on time and content of last meal. Glucose of more than 200 mg/dL in a nonstressed, ambulatory subject supports the diagnosis of Diabetes Mellitus. Serum or plasma high density lipoprotein (HDL) cholesterol measurementOrdered By: Justice Singh on 02-17-2022 Cholesterol in HDL [Mass/Vol] 42 mg/dL 29-71 [facility] Comment on above: HDL CHOL ATP-III CLA SSIFICATION Cardiovascular RiskHDL > or equal to 60 mg/dL LOWHDL < 40 mg/dL HIGH Serum or plasma potassium me asurement (moles/volume)Ordered By: Justice Singh on 02-17-2022 Potassium [Moles/Vol] 4.4 mmol/L 3.5-5.1 [facility] Serum or plasma sodium measu rement (moles/volume)Ordered By: Justice Singh on 02-17-2022 Sodium [Moles/Vol] 138 mmol/L 136-146 [facility] Serum or plasma total biliru bin measurement (mass/volume)Ordered By: Justice Singh on 02-17-2022 Bilirubin [Mass/Vol] 0.6 mg/dL 0.3-1.2 [facility] Serum or plasma total carbon dioxide measurement (moles/volume)Ordered By: Justice Singh on 02-17-2022 CO2 [Moles/Vol] 24.7 mmol/L 22.0-30.0 [facility] Serum or plasma total choles terol/high density lipoprotein (HDL) cholesterol mass ratOrdered By: Justice Singh on 02-17-2022 Cholesterol.total/Chol esterol in HDL [Mass ratio] 2.8 {ratio} <5.0 [facility] Serum or plasma urea nitroge n measurement (mass/volume)Ordered By: Justice Singh on 02-17-2022 Urea nitrogen [Mass/Vol] 30 mg/dL 9- [facility] TSH DL <= 0.005 mIU/L QnOrde red By: Justice Singh on 02-17-2022 TSH Qn 3.26 m[IU]/L 0.45-5.33 [facility] Triglyceride [Mass/volume] i n Serum or PlasmaOrdered By: Justice Singh on 02-17-2022 Triglyceride [Mass/Vol] 83 mg/dL 35-149 [facility] Comment on above: TRIG ATP III CLASSIF ICATIONTRIG less than 150 mg/dL NormalTRIG 150-199 mg/dL Borderline highTRIG 200-500 mg/dL High TRIG greater than 500 mg/dL Very highStandard traceable to the Center for Disease Conrtrol and Prevention (CDC) test method. Tobacco Screening.on 022 Adult depression screening assessment No [facility] DO Work Phone: Fall risk assessment a) No falls within the last year [facility] DO Work Phone: Tobacco use status CP b) No [facility] DO Work Phone: Ambulatory Visit Summaryon 0 12-28-2021 Ambulatory Visit Summary EVER MASON :1935 Visit Date:12/28/2021 Ambulatory Visit Instructions Your Diagnosis BPH with urinary obstruction Post-void dribbling Tests Performed Urnls Dip Stick Auto w/o Microscopy POC 84506 Your Care Team Attending Physician - JULIA HAWKINS, Tristan Salter Primary Care Physician - JUSTICE SINGH DO This Is Your Medications List Contact prescribing physician if questions or concerns aspirin (aspirin 81 mg Oral EC Tab) atorvastatin (atorvastatin 20 mg Tab) carvedilol glipiZIDE isosorbide dinitrate levothyroxine (Euthyrox 50 mcg (0.05 mg) oral tablet) lisinopril (lisinopril 2.5 mg Tab) metformin (Glucophage 1000 mg oral tablet) montelukast (Singulair 10 mg Tab) multivitamin with minerals (One A Day Men 50 Plus) multivitamin with minerals (PreserVision AREDS 2) [Image Removed: STOP]Stop taking these medications montelukast naproxen (Aleve 220 mg oral capsule) nitroglycerin (nitroglycerin 0.4 mg sublingual Tab) potassium gluconate (potassium gluconate 550 mg oral tablet) simvastatin (simvastatin 40 mg Tab) Procedures Performed Transurethral insertion of prostatic urethral lift implant (11/19/2020), Cystoscopy (09/18/2020), Angioplasty (12/28/2007), Placement of stent in cardiac conduit (12/28/2007). Discharge Vitals Heart Rate (Peripheral) 74 Blood Pressure 140/86 Height 178 cm Height 178.0 cm Weight 78.0 kg Weight 78.0 kg BMI 24.62 What to do next You Need to Schedule the Following Appointments Follow Up with JULIA HAWKINS, DARIO Hunt When: Where: [facility] [place] [id number]- Medications What How Much When Instructions Unchanged aspirin (aspirin 81 mg Oral EC Tab) By Mouth Every day Contact prescribing physician if questions or concerns Unchanged atorvastatin (atorvastatin 20 mg Tab) 1 Tablets By Mouth Every day Contact prescribing physician if questions or concerns Unchanged carvedilol 3.125 Milligram Contact prescribing physician if questions or concerns Unchanged glipiZIDE 5 Milligram By Mouth Every day Contact prescribing physician if questions or concerns Unchanged isosorbide dinitrate 30 Milligram Contact prescribing physician if questions or concerns Unchanged levothyroxine (Euthyrox 50 mcg (0.05 mg) oral tablet) 1 Tablets By Mouth Every day Contact prescribing physician if questions or concerns Unchanged lisinopril (lisinopril 2.5 mg Tab) 1 Tablets By Mouth Every day Contact prescribing physician if questions or concerns Unchanged metformin (Glucophage 1000 mg oral tablet) By Mouth 2 times a day Contact prescribing physician if questions or concerns Unchanged montelukast (Singulair 10 mg Tab) By Mouth Every day Contact prescribing physician if questions or concerns Unchanged multivitamin with minerals (One A Day Men 50 Plus) Contact prescribing physician if questions or concerns Unchanged multivitamin with minerals (PreserVision AREDS 2) Contact prescribing physician if questions or concerns What How Much When Comments Stop Taking montelukast Stop Taking naproxen (Aleve 220 mg oral capsule) By Mouth Every 12 hours Stop Taking nitroglycerin (nitroglycerin 0.4 mg sublingual Tab) 1 Tablets Sublingual Every 5 minutes as needed for for chest pain Stop Taking potassium gluconate (potassium gluconate 550 mg oral tablet) Stop Taking simvastatin (simvastatin 40 mg Tab) By Mouth Once a day (at bedtime) Test Results Urnls Dip Stick Auto w/o Microscopy POC 64002 (12/28/2021) Bilirubin Urine Dipstick - Negative Blood Urine Dipstick - Negative Glucose Urine Dipstick - Negative Ketones Urine Dipstick - Trace - 5 mg/dl Leukocytes Urine Dipstick - Negative Nitrite Urine Dipstick - Negative Protein Urine Dipstick - Negative Specific [place] Urine Dipstick - 1.025 Urine Appearance Urine Dipstick - Clear Urine Color Urine Dipstick - Light yellow Urobilinogen Urine Dipstick - Normal 0.2-1 EU/dl pH Urine Dipstick - 5.5 Allergies No Known Allergies Problems Ongoing - Any problem that you are currently receiving treatment for. 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 The prostate is a walnut-sized gland that is involved in the production of semen. It is located in front of the rectum and below the bladder. The bladder stores urine and the urethra is the tube that carries the urine out of the body. The prostate may get bigger as a man gets older. An enlarged prostate can press on the urethra. This can make it harder to pass urine. The build-up of urine in the bladder can cause infection. Back pr (more content not included)... Normal [facility] Patient Educationon 12-29-19 22 Patient Education Urology Benign Prostatic Hyperplasia Benign prostatic hyperplasia (BPH) is an enlarged prostate gland that is caused by the normal aging process and not by cancer. The prostate is a walnut-sized gland that is involved in the production of semen. It is located in front of the rectum and below the bladder. The bladder stores urine and the urethra is the tube that carries the urine out of the body. The prostate may get bigger as a man gets older. An enlarged prostate can press on the urethra. This can make it harder to pass urine. The build-up of urine in the bladder can cause infection. Back pressure and infection may progress to bladder damage and kidney (renal) failure. What are the causes? This condition is part of a normal aging process. However, not all men develop problems from this condition. If the prostate enlarges away from the urethra, urine flow will not be blocked. If it enlarges toward the urethra and compresses it, there will be problems passing urine. What increases the risk? This condition is more likely to develop in men over the age of 50 years. What are the signs or symptoms? Symptoms of this condition include: ? Getting up often during the night to urinate. ? Needing to urinate frequently during the day. ? Difficulty starting urine flow. ? Decrease in size and strength of your urine stream. ? Leaking (dribbling) after urinating. ? Inability to pass urine. This needs immediate treatment. ? Inability to completely empty your bladder. ? Pain when you pass urine. This is more common if there is also an infection. ? Urinary tract infection (UTI). How is this diagnosed? This condition is diagnosed based on your medical history, a physical exam, and your symptoms. Tests will also be done, such as: ? A post-void bladder scan. This measures any amount of urine that may remain in your bladder after you finish urinating. ? A digital rectal exam. In a rectal exam, your health care provider checks your prostate by putting a lubricated, gloved finger into your rectum to feel the back of your prostate gland. This exam detects the size of your gland and any abnormal lumps or growths. ? An exam of your urine (urinalysis). ? A prostate specific antigen (PSA) screening. This is a blood test used to screen for prostate cancer. ? An ultrasound. This test uses sound waves to electronically produce a picture of your prostate gland. Your health care provider may refer you to a specialist in kidney and prostate diseases (urologist). How is this treated? Once symptoms begin, your health care provider will monitor your condition (active surveillance or watchful waiting). Treatment for this condition will depend on the severity of your condition. Treatment may include: ? Observation and yearly exams. This may be the only treatment needed if your condition and symptoms are mild. ? Medicines to relieve your symptoms, including: ? Medicines to shrink the prostate. ? Medicines to relax the muscle of the prostate. ? Surgery in severe cases. Surgery may include: ? Prostatectomy. In this procedure, the prostate tissue is removed completely through an open incision or with a laparoscope or robotics. ? Transurethral resection of the prostate (TURP). In this procedure, a tool is inserted through the opening at the tip of the penis (urethra). It is used to cut away tissue of the inner core of the prostate. The pieces are removed through the same opening of the penis. This removes the blockage. ? Transurethral incision (TUIP). In this procedure, small cuts are made in the prostate. This lessens the prostate's pressure on the urethra. ? Transurethral microwave thermotherapy (TUMT). This procedure uses microwaves to create heat. The heat destroys and removes a small amount of prostate tissue. ? Transurethral needle ablation (TUNA). This procedure uses radio frequencies to destroy and remove a small amount of prostate tissue. ? Interstitial laser coagulation (ILC). This procedure uses a laser to destroy and remove a small amount of prostate tissue. ? Transurethral electrovaporization (TUVP). This procedure uses electrodes to destroy and remove a small amount of prostate tissue. ? Prostatic urethral lift. This procedure inserts an implant to push the lobes of the prostate away from the urethra. Follow these instructions at home: ? Take [id number] and prescription medicines only as told by your health care provider. ? Monitor your symptoms for any changes. Contact your health care provider with any changes. ? Avoid drinking large amounts of liquid before going to bed or out in public. ? Avoid or reduce how much caffeine or alcohol you drink. ? Give yourself time when you urinate. ? Keep all follow-up visits as told by your health care provider. This is important. Contact a health care provider if: ? You have unexplained back pain. ? Your symptoms do not get better with treatment. ? You d (more content not included)... Normal [facility] Screenson 12-28-2021 Screens [id number] Normal [facility] Urology Office/Clinic Noteon 12-28-2021 Urology Office/Clinic Note Chief Complaint Patient in office for 1 year f/u HPI Staff Patient in office for 1 year f/u to BPH. Patient states he has not seen any improvement in symptoms since previous office visit. States he is still having issues with leaking in between urinating. States he continues to wear depends, and also uses extra toilet paper due to the leakage. Dysuria: denies Incomplete bladder emptying: denies Hematuria: denies Frequency: denies Urgency: intermittent Nocturia: 2 x a night Stream: steady Leaking: admits Post void dripping: denies Wearing pads/ Depends: admits; changes depends every day Urge incontinence: denies Stress incontinence: denies Incontinence without Sensory Awareness: denies Abdominal pain: denies Flank pain: denies Sexual complaints: _ History of Present Illness Tests reviewed: reviewed UA I have reviewed the previous health record information and history for this patient from . I have reviewed and verified the staff HPI to be accurate for this encounter. There have been no associated fever, chills, flank pain, or blood in the urine. Denies any urinary infections since last encounter. Review of Systems PHQ Score Initial Depression Screen Score: 0 ROS - Provider Constitutional: denies weight loss, denies hot flashes. Eyes: denies eye problems. Gastrointestinal: denies nausea, denies vomiting. Cardiovascular: denies chest pain or angina. Integumentary: no dryness Musculoskeletal: denies musculoskeletal symptoms. ENMT: denies otolaryngeal symptoms. Respiratory: no shortness of breath. Heme/Lymph: denies easy bleeding tendency, denies easy bruising tendency. Psychiatric: no confusion, no anxiety. Genitourinary: denies dysuria, denies hematuria, denies discharge, denies urinary frequency, denies urinary hesitancy, denies nocturia, denies incontinence, denies genital sores, denies decreased libido, and denies erectile dysfunction. Physical Exam Vitals & Measurements HR: 74(Peripheral) BP: 140/86 HT: 178 cm HT: 178.0 cm WT: 78.0 kg WT: 78.0 kg BMI: 24.62 General Appearance: alert, no distress, well nourished, well developed male. Genitourinary: normal scrotum, normal testes, normal urethra, normal epididymis, normal vas deferens/spermatic cord. Flank Pain: none. Bladder: nonpalpable. Assessment/Plan 1. BPH with urinary obstruction (N40.1: Benign prostatic hyperplasia with lower urinary tract symptoms) S/P Urolift 11/19/2020. Pt is not currently on any BPH meds at this time. UA clear of infection. Will follow up PRN. All questions/concerns were discussed. Pt. to call the office if heencounters any issues prior. Pt. acknowledges understanding. 2. Post-void dribbling (N39.43: Post-void dribbling) Pt still wearing pads. Patient had the UroLift done a year ago he dribbles a bit since that time but he said he was dribbling before that but he is now emptying well his IPSS score is only 6 which is excellent so he has no issues and I said at your age that she have any issues bloated albeit for now see you as needed. Patient understands and agrees Follow-up With When Contact Information JULIA HAWKINS, Tristan Salter, [place] [id number] [place] [address]- Additional Instructions: PRN Patient Education Benign Prostatic Hyperplasia Virgen Castro, personally scribed for Dr. Dumont on 12/28/2021 12:10:34. Documentation recorded by the scribe, Annie Munguia, accurately reflects the services(s) I performed and decisions made by me. Authenticated by Dr. Dumont on 12/28/2021 12:21:04.12:10:34. Problem List/Past Medical History Ongoing Aneurysm BMI 26.0-26.9,adult BPH with urinary obstruction Diabetes Elevated cholesterol Elevated PSA Hesitancy Hx of retirement use of blood thinners Hypertension Incomplete bladder emptying Nocturia Post-void dribbling Historical No qualifying data Procedure/Surgical History Transurethral insertion of prostatic urethral lift implant (11/19/2020), Cystoscopy (09/18/2020), Angioplasty (12/28/2007), Placement of stent in cardiac conduit (12/28/2007). Medications aspirin 81 mg Oral EC Tab, Oral, Daily atorvastatin 20 mg Tab, 20 mg= 1 tab(s), Oral, Daily carvedilol, 3.125 mg Euthyrox 50 mcg (0.05 mg) oral tablet, 50 mcg= 1 tab(s), Oral, Daily glipiZIDE, 5 mg, Oral, Daily Glucophage 1000 mg oral tablet, Oral, BID isosorbide dinitrate, 30 mg lisinopril 2.5 mg Tab, 2.5 mg= 1 tab(s), Oral, Daily One A Day Men 50 Plus PreserVision AREDS 2 Singulair 10 mg Tab, Oral, Daily Allergies No Known Allergies Social History Alcohol - Denies Alcohol Use, 06/14/2019 Tobacco - Denies Tobacco Use, 06/14/2019 Former smoker, quit more than 30 days ago Tobacco Use:. Cigarettes, 11/24/2020 Family History Heart attack: Mother and Father. Immunizations Vaccine Date Status SARS-CoV-2 (COVID-19) mRNA-1273 vaccine 09/2020 Recorded SARS-CoV-2 (COVID-19) mRNA-1273 vac (more content not included)... Normal [facility] Comment on above: Result Comment: Elec tronically Signed By: Tristan DUMONT MD\.br\Date and Time Signed: 12/28/21 12:21 EDT\.br\Electronically Co-Signed By: Virgen Bonds\.br\Date and Time Co-Signed: 12/28/21 12:10 EDT Tobacco Screening.on 021 Fall risk assessment a) No falls within the last year [facility] 250 DO Work Phone: Tobacco use status [facility] b) No -[facility] DO Work Phone: Vital Signs Date Time Vital Sign Value Performing Clinician Facility 02-26-2025 08:51-0400 Body height 175.26 cm Justice Singh DO Work Phone: [facility] 02-26-2025 08:51-0400 Body mass index (BMI) [Ratio] 23.8 kg/m2 Justice Kuns DO Work Phone: [facility] 02-26-2025 08:51-0400 Body weight 73.02 kg Justice Kuns DO Work Phone: [facility] 02-26-2025 08:51-0400 Diastolic blood pressure 58 mm[Hg] Justice Kuns DO Work Phone: [facility] 02-26-2025 08:51-0400 Heart rate 58 /min Justice Kuns DO Work Phone: [facility] 02-26-2025 08:51-0400 Respiratory rate 16 /min Justice Kuns DO Work Phone: [facility] 02-26-2025 08:51-0400 SaO2% (BldA) [Mass fraction] 96 % Justice Kuns DO Work Phone: [facility] 02-26-2025 08:51-0400 Systolic blood pressure 102 mm[Hg] Justice Kuns DO Work Phone: [facility] 02-09-2025 16:30-0400 Body temperature 97.7 [degF] Justice Kuns DO Work Phone: [facility] 02-09-2025 16:30-0400 Diastolic blood pressure 84 mm[Hg] Justice Kuns DO Work Phone: [facility] 02-09-2025 16:30-0400 Heart rate 65 /min Justice Kuns DO Work Phone: [facility] 02-09-2025 16:30-0400 Respiratory rate 17 /min Justice Kuns DO Work Phone: [facility] 02-09-2025 16:30-0400 SaO2% (BldA) [Mass fraction] 98 % Justice Kuns DO Work Phone: [facility] 02-09-2025 16:30-0400 Systolic blood pressure 131 mm[Hg] Justice Kuns DO Work Phone: [facility] 02-09-2025 06:00-0400 Body weight 75.1 kg Justice Kuns DO Work Phone: [facility] 02-07-2025 11:00-0400 Body height 175.26 cm Justice Kuns DO Work Phone: [facility] 02-06-2025 18:34-0400 Body height 175.26 cm Justice Kuns DO Work Phone: [facility] 02-06-2025 18:34-0400 Body temperature 97.4 [degF] Justice Kuns DO Work Phone: [facility] 02-06-2025 18:34-0400 Body weight 73.8 kg Justice Kuns DO Work Phone: [facility] 02-06-2025 18:34-0400 Diastolic blood pressure 78 mm[Hg] Justice Kuns DO Work Phone: [facility] 02-06-2025 18:34-0400 Heart rate 57 /min Justice Kuns DO Work Phone: [facility] 02-06-2025 18:34-0400 Respiratory rate 18 /min Justice Kuns DO Work Phone: [facility] 02-06-2025 18:34-0400 SaO2% (BldA) [Mass fraction] 98 % Justice Kuns DO Work Phone: [facility] 02-06-2025 18:34-0400 Systolic blood pressure 143 mm[Hg] Justice Kuns DO Work Phone: [facility] 11-15-2024 09:38-0400 Body height 175.26 cm Justice Kuns DO Work Phone: [facility] 11-15-2024 09:38-0400 Body mass index (BMI) [Ratio] 24.7 kg/m2 Justice Kuns DO Work Phone: [facility] 11-15-2024 09:38-0400 Body weight 76.2 kg Justice Kuns DO Work Phone: [facility] 11-15-2024 09:38-0400 Diastolic blood pressure 70 mm[Hg] Justice Kuns DO Work Phone: [facility] 11-15-2024 09:38-0400 Heart rate 60 /min Justice Kuns DO Work Phone: [facility] 11-15-2024 09:38-0400 SaO2% (BldA) [Mass fraction] 96 % Justice Kuns DO Work Phone: [facility] 11-15-2024 09:38-0400 Systolic blood pressure 120 mm[Hg] Justice Kuns DO Work Phone: [facility] 11-13-2024 10:11-0400 Body height 170.2 cm Renny Christopher DO Work Phone: [facility] 11-13-2024 10:11-0400 Body mass index (BMI) [Ratio] 26.38 kg/m2 Renny Christopher DO Work Phone: [facility] 11-13-2024 [id number] Body weight 76.39 kg Renny Christopher DO Work Phone: [facility] 11-13-2024 10:11-0400 Diastolic blood pressure 82 mm[Hg] Renny Christopher DO Work Phone: [facility] 11-13-2024 10:11-0400 Heart rate 62 /min Renny Christopher DO Work Phone: [facility] 11-13-2024 10:11-0400 Systolic blood pressure 118 mm[Hg] Renny Christopher DO Work Phone: [facility] 10-01-2024 10:24-0400 Body height 175.26 cm Justice Kuns DO Work Phone: [facility] 10-01-2024 10:24-0400 Body mass index (BMI) [Ratio] 24.9 kg/m2 Justice Kuns DO Work Phone: [facility] 10-01-2024 10:24-0400 Body weight 76.65 kg Justice Kuns DO Work Phone: [facility] 10-01-2024 10:24-0400 Diastolic blood pressure 72 mm[Hg] Justice Kuns DO Work Phone: [facility] 10-01-2024 10:24-0400 Heart rate 55 /min Justice Kuns DO Work Phone: [facility] 10-01-2024 10:24-0400 Respiratory rate 18 /min Justice Kuns DO Work Phone: [facility] 10-01-2024 10:24-0400 SaO2% (BldA) [Mass fraction] 97 % Justice Kuns DO Work Phone: [facility] 10-01-2024 10:24-0400 Systolic blood pressure 128 mm[Hg] Justice Kuns DO Work Phone: [facility] 08-07-2024 08:56-0400 Body height 175.26 cm Justice Kuns DO Work Phone: [facility] 08-07-2024 08:56-0400 Body mass index (BMI) [Ratio] 23.9 kg/m2 Justice Kuns DO Work Phone: [facility] 08-07-2024 08:56-0400 Body temperature 98.2 [degF] Justice Kuns DO Work Phone: [facility] 08-07-2024 08:56-0400 Body weight 73.48 kg Justice Kuns DO Work Phone: [facility] 08-07-2024 08:56-0400 Diastolic blood pressure 86 mm[Hg] Justice Kuns DO Work Phone: [facility] 08-07-2024 08:56-0400 Heart rate 55 /min Justice Kuns DO Work Phone: [facility] 08-07-2024 08:56-0400 Respiratory rate 16 /min Justice Kuns DO Work Phone: [facility] 08-07-2024 08:56-0400 SaO2% (BldA) [Mass fraction] 97 % Justice Kuns DO Work Phone: [facility] 08-07-2024 08:56-0400 Systolic blood pressure 138 mm[Hg] Justice Kuns DO Work Phone: [facility] 07-19-2024 08:33-0500 Body height 175.26 cm Justice Kuns DO Work Phone: [facility] 07-19-2024 08:33-0500 Body mass index (BMI) [Ratio] 24.6 kg/m2 Justice Kuns DO Work Phone: [facility] 07-19-2024 08:33-0500 Body weight 75.74 kg Justice Kuns DO Work Phone: [facility] 07-19-2024 08:33-0500 Diastolic blood pressure 72 mm[Hg] Justice Kuns DO Work Phone: [facility] 07-19-2024 08:33-0500 Heart rate 62 /min Justice Kuns DO Work Phone: [facility] 07-19-2024 08:33-0500 Respiratory rate 16 /min Justice Kuns DO Work Phone: [facility] 07-19-2024 08:33-0500 Systolic blood pressure 118 mm[Hg] Justice Kuns DO Work Phone: [facility] 06-11-2024 13:52-0500 Body height 175.3 cm Miguelangel Morse MD Work Phone: [facility] 06-11-2024 13:52-0500 Body mass index (BMI) [Ratio] 23.63 kg/m2 Miguelangel Morse MD Work Phone: [facility] 06-11-2024 13:52-0500 Body weight 72.58 kg Miguelangel Morse MD Work Phone: [facility] 06-11-2024 13:52-0500 Diastolic blood pressure 64 mm[Hg] Miguelangel Morse MD Work Phone: [facility] 06-11-2024 13:52-0500 Heart rate 59 /min Miguelangel Morse MD Work Phone: [facility] 06-11-2024 13:52-0500 Respiratory rate 18 /min Miguelangel Morse MD Work Phone: [facility] 06-11-2024 13:52-0500 SaO2% (BldA) [Mass fraction] 100 % Miguelangel Morse MD Work Phone: [facility] Comment on above: RA 06-11-2024 13:52-0500 Systolic blood pressure 169 mm[Hg] Miguelangel Morse MD Work Phone: [facility] 04-17-2024 09:44-0500 Body height 175.26 cm [facility] 04-17-2024 09:44-0500 Body mass index (BMI) [Ratio] 25.5 kg/m2 [facility] 04-17-2024 09:44-0500 Body weight 78.47 kg [facility] 04-17-2024 09:44-0500 Diastolic blood pressure 82 mm[Hg] [facility] 04-17-2024 09:44-0500 Heart rate 60 /min [facility] 04-17-2024 09:44-0500 Respiratory rate 18 /min [facility] 04-17-2024 09:44-0500 SaO2% (BldA) [Mass fraction] 97 % [facility] 04-17-2024 09:44-0500 Systolic blood pressure 134 mm[Hg] [facility] 04-05-2024 09:15-0500 Body height 175.26 cm Justice Kuns DO Work Phone: [facility] 04-05-2024 09:15-0500 Body mass index (BMI) [Ratio] 25.4 kg/m2 Justice Kuns DO Work Phone: [facility] 04-05-2024 09:15-0500 Body weight 78.01 kg Justice Kuns DO Work Phone: [facility] 04-05-2024 09:15-0500 Diastolic blood pressure 72 mm[Hg] Justice Kuns DO Work Phone: [facility] 04-05-2024 09:15-0500 Heart rate 56 /min Justice Kuns DO Work Phone: [facility] 04-05-2024 09:15-0500 Respiratory rate 18 /min Justice Kuns DO Work Phone: [facility] 04-05-2024 09:15-0500 SaO2% (BldA) [Mass fraction] 96 % Justice Kuns DO Work Phone: [facility] 04-05-2024 09:15-0500 Systolic blood pressure 146 mm[Hg] Justice Kuns DO Work Phone: [facility] 03-15-2024 09:31-0400 Body height 170.2 cm Renny Christopher DO Work Phone: [facility] 03-15-2024 09:31-0400 Body mass index (BMI) [Ratio] 26.63 kg/m2 Renny Christopher DO Work Phone: [facility] 03-15-2024 09:31-0400 Body weight 77.11 kg Renny Christopher DO Work Phone: [facility] 03-15-2024 09:31-0400 Diastolic blood pressure 60 mm[Hg] Renny Christopher DO Work Phone: [facility] 03-15-2024 09:31-0400 Heart rate 60 /min Renny Christopher DO Work Phone: [facility] 03-15-2024 09:31-0400 Systolic blood pressure 118 mm[Hg] Renny Christopher DO Work Phone: [facility] 03-05-2024 09:12-0400 Body height 175.26 cm DO Justice Kuns Work Phone: [facility] 03-05-2024 09:12-0400 Body mass index (BMI) [Ratio] 24.4 kg/m2 DO Justice Kuns Work Phone: [facility] 03-05-2024 09:12-0400 Body weight 75 kg DO Justice Kuns Work Phone: [facility] 02-01-2024 15:18-0400 Body height 175.26 cm DO Justice Kuns Work Phone: [facility] 02-01-2024 15:18-0400 Body mass index (BMI) [Ratio] 24.5 kg/m2 DO Justice Kuns Work Phone: [facility] 02-01-2024 15:18-0400 Body weight 75.29 kg DO Justice Kuns Work Phone: [facility] 02-01-2024 15:18-0400 Diastolic blood pressure 56 mm[Hg] DO Justice Kuns Work Phone: [facility] 02-01-2024 15:18-0400 Heart rate 61 /min DO Justice Kuns Work Phone: [facility] 02-01-2024 15:18-0400 Respiratory rate 20 /min DO Justice Kuns Work Phone: [facility] 02-01-2024 15:18-0400 SaO2% (BldA) [Mass fraction] 96 % DO Justice Kuns Work Phone: [facility] 02-01-2024 15:18-0400 Systolic blood pressure 88 mm[Hg] DO Justice Kuns Work Phone: [facility] 01-18-2024 16:59-0400 Body temperature 97.3 [degF] DO Justice Kuns Work Phone: [facility] 01-18-2024 16:59-0400 Diastolic blood pressure 90 mm[Hg] DO Justice Kuns Work Phone: [facility] 01-18-2024 16:59-0400 Heart rate 75 /min DO Justice Kuns Work Phone: [facility] 01-18-2024 16:59-0400 Respiratory rate 16 /min DO Justice Kuns Work Phone: [facility] 01-18-2024 16:59-0400 SaO2% (BldA) [Mass fraction] 96 % DO Justice Kuns Work Phone: [facility] 01-18-2024 16:59-0400 Systolic blood pressure 174 mm[Hg] DO Justice Kuns Work Phone: [facility] 01-18-2024 05:08-0400 Body weight 73.3 kg DO Justice Kuns Work Phone: [facility] 01-17-2024 21:38-0400 Body height 175.26 cm DO Justice Kuns Work Phone: [facility] 01-17-2024 20:00-0400 Diastolic blood pressure 69 mm[Hg] DO Justice Kuns Work Phone: [facility] 01-17-2024 20:00-0400 Heart rate 69 /min DO Justice Kuns Work Phone: [facility] 01-17-2024 20:00-0400 SaO2% (BldA) [Mass fraction] 97 % DO Justice Kuns Work Phone: [facility] 01-17-2024 20:00-0400 Systolic blood pressure 128 mm[Hg] DO Justice Kuns Work Phone: [facility] 01-17-2024 18:06-0400 Respiratory rate 20 /min DO Justice Kuns Work Phone: [facility] 01-17-2024 14:19-0400 Body height 175.26 cm DO Justice Kuns Work Phone: [facility] 01-17-2024 14:19-0400 Body temperature 97.6 [degF] DO Justice Kuns Work Phone: [facility] 01-17-2024 14:19-0400 Body weight 76.8 kg DO Justice Kuns Work Phone: [facility] 01-03-2024 08:37-0400 Body height 175.26 cm [facility] 01-03-2024 08:37-0400 Body mass index (BMI) [Ratio] 25.7 kg/m2 [facility] 01-03-2024 08:37-0400 Body weight 78.92 kg [facility] 01-03-2024 08:37-0400 Diastolic blood pressure 80 mm[Hg] [facility] 01-03-2024 08:37-0400 Heart rate 56 /min [facility] 01-03-2024 08:37-0400 Respiratory rate 16 /min [facility] 01-03-2024 08:37-0400 SaO2% (BldA) [Mass fraction] 97 % [facility] 01-03-2024 08:37-0400 Systolic blood pressure 126 mm[Hg] [facility] 10-06-2023 11:14-0400 Body height 175.26 cm DO Justice Kuns Work Phone: [facility] 10-06-2023 11:14-0400 Body mass index (BMI) [Ratio] 25.2 kg/m2 DO Justice Kuns Work Phone: [facility] 10-06-2023 11:14-0400 Body weight 77.56 kg DO Justice Kuns Work Phone: [facility] 10-06-2023 11:14-0400 Diastolic blood pressure 64 mm[Hg] DO Justice Kuns Work Phone: [facility] 10-06-2023 11:14-0400 Heart rate 62 /min DO Justice Kuns Work Phone: [facility] 10-06-2023 11:14-0400 Respiratory rate 18 /min DO Justice Kuns Work Phone: [facility] 10-06-2023 11:14-0400 SaO2% (BldA) [Mass fraction] 98 % DO Justice Kuns Work Phone: [facility] 10-06-2023 11:14-0400 Systolic blood pressure 106 mm[Hg] DO Justice Kuns Work Phone: [facility] 09-19-2023 12:00-0400 Body temperature 97.8 [degF] DO Justice Kuns Work Phone: [facility] 09-19-2023 12:00-0400 Diastolic blood pressure 79 mm[Hg] DO Justice Kuns Work Phone: [facility] 09-19-2023 12:00-0400 Heart rate 49 /min DO Justice Kuns Work Phone: [facility] 09-19-2023 12:00-0400 Respiratory rate 16 /min DO Justice Kuns Work Phone: [facility] 09-19-2023 12:00-0400 SaO2% (BldA) [Mass fraction] 97 % DO Justice Kuns Work Phone: [facility] 09-19-2023 12:00-0400 Systolic blood pressure 141 mm[Hg] DO Justice Kuns Work Phone: [facility] 09-19-2023 06:00-0400 Body weight 80.5 kg DO Justice Kuns Work Phone: [facility] 09-17-2023 21:32-0400 Body height 175.26 cm DO Justice Kuns Work Phone: [facility] 09-17-2023 21:06-0400 Body temperature 97.7 [degF] DO Justice Kuns Work Phone: [facility] 09-17-2023 21:06-0400 Diastolic blood pressure 61 mm[Hg] DO Justice Kuns Work Phone: [facility] 09-17-2023 21:06-0400 Heart rate 60 /min DO Justice Kuns Work Phone: [facility] 09-17-2023 21:06-0400 Respiratory rate 16 /min DO Justice Kuns Work Phone: [facility] 09-17-2023 21:06-0400 SaO2% (BldA) [Mass fraction] 98 % DO Justice Kuns Work Phone: [facility] 09-17-2023 21:06-0400 Systolic blood pressure 100 mm[Hg] DO Justice Kuns Work Phone: [facility] 09-17-2023 18:05-0400 Body height 175.26 cm DO Justice Kuns Work Phone: [facility] 09-17-2023 18:05-0400 Body weight 78.47 kg DO Justice Kuns Work Phone: [facility] 09-13-2023 12:48-0400 Body height 175.3 cm Renny Christopher DO Work Phone: [facility] 09-13-2023 12:48-0400 Body mass index (BMI) [Ratio] 25.4 kg/m2 Renny Christopher DO Work Phone: [facility] 09-13-2023 12:48-0400 Body weight 78.02 kg Renny Christopher DO Work Phone: [facility] 09-13-2023 12:48-0400 Diastolic blood pressure 58 mm[Hg] Renny Christopher DO Work Phone: [facility] 09-13-2023 12:48-0400 Heart rate 60 /min Renny Christopher DO Work Phone: [facility] 09-13-2023 12:48-0400 Systolic blood pressure 82 mm[Hg] Renny Christopher DO Work Phone: [facility] 08-23-2023 16:25-0400 Body height 175.3 cm Mac Castillo MD, MS Work Phone: [facility] 08-23-2023 16:25-0400 Body mass index (BMI) [Ratio] 26.04 kg/m2 Mac Castillo MD, MS Work Phone: [facility] 08-23-2023 16:25-0400 Body weight 79.97 kg Mac Castillo MD, MS Work Phone: [facility] 08-23-2023 16:25-0400 Diastolic blood pressure 60 mm[Hg] Mac Castillo MD, MS Work Phone: [facility] 08-23-2023 16:25-0400 Heart rate 52 /min Mac Castillo MD, MS Work Phone: [facility] 08-23-2023 16:25-0400 SaO2% (BldA) [Mass fraction] 94 % Mac Castillo MD, MS Work Phone: [facility] 08-23-2023 16:25-0400 Systolic blood pressure 105 mm[Hg] Mac Castillo MD, MS Work Phone: [facility] 2023 16:27-0400 Diastolic blood pressure 85 mm[Hg] DO Justice Kuns Work Phone: [facility] 2023 16:27-0400 Respiratory rate 16 /min DO Justice Kuns Work Phone: [facility] 2023 16:27-0400 SaO2% (BldA) [Mass fraction] 98 % DO Justice Kuns Work Phone: [facility] 2023 16:27-0400 Systolic blood pressure 150 mm[Hg] DO Justice Kuns Work Phone: [facility] 2023 14:57-0400 Heart rate 51 /min DO Justice Kuns Work Phone: [facility] 2023 09:35-0400 Body height 175.26 cm DO Justice Kuns Work Phone: [facility] 2023 09:35-0400 Body temperature 97.1 [degF] DO Justice Kuns Work Phone: [facility] 2023 09:35-0400 Body weight 79 kg DO Justice Kuns Work Phone: [facility] 08-01-2023 10:50-0400 Body height 175.26 cm DO Justice Kuns Work Phone: [facility] 08-01-2023 10:50-0400 Body mass index (BMI) [Ratio] 26.1 kg/m2 DO Justice Kuns Work Phone: [facility] 08-01-2023 10:50-0400 Body temperature 96.8 [degF] DO Justice Kuns Work Phone: [facility] 08-01-2023 10:50-0400 Body weight 80.28 kg DO Justice Kuns Work Phone: [facility] 08-01-2023 10:50-0400 Diastolic blood pressure 80 mm[Hg] DO Justice Kuns Work Phone: [facility] 08-01-2023 10:50-0400 Heart rate 60 /min DO Justice Kuns Work Phone: [facility] 08-01-2023 10:50-0400 SaO2% (BldA) [Mass fraction] 98 % DO Justice Kuns Work Phone: [facility] 08-01-2023 10:50-0400 Systolic blood pressure 138 mm[Hg] DO Justice Kuns Work Phone: [facility] 07-25-2023 09:51-0400 Diastolic blood pressure 75 mm[Hg] DO Justice Kuns Work Phone: [facility] 07-25-2023 09:51-0400 Heart rate 50 /min DO Justice Kuns Work Phone: [facility] 07-25-2023 09:51-0400 Systolic blood pressure 162 mm[Hg] DO Justice Kuns Work Phone: [facility] 07-12-2023 09:56-0500 Body height 175.26 cm DO Justice Kuns Work Phone: [facility] 07-12-2023 09:56-0500 Body mass index (BMI) [Ratio] 25.7 kg/m2 DO Justice Kuns Work Phone: [facility] 07-12-2023 09:56-0500 Body weight 78.92 kg DO Justice Kuns Work Phone: [facility] 07-12-2023 09:56-0500 Diastolic blood pressure 70 mm[Hg] DO Justice Kuns Work Phone: [facility] 07-12-2023 09:56-0500 Heart rate 52 /min DO Justice Kuns Work Phone: [facility] 07-12-2023 09:56-0500 Respiratory rate 18 /min DO Justice Kuns Work Phone: [facility] 07-12-2023 09:56-0500 SaO2% (BldA) [Mass fraction] 98 % DO Justice Kuns Work Phone: [facility] 07-12-2023 09:56-0500 Systolic blood pressure 122 mm[Hg] DO Justice Kuns Work Phone: [facility] 07-11-2023 09:50-0500 Body height 173.99 cm DO Justice Kuns Work Phone: [facility] 07-11-2023 09:50-0500 Body mass index (BMI) [Ratio] 25.9 kg/m2 DO Justice Kuns Work Phone: [facility] 07-11-2023 09:50-0500 Body temperature 97.7 [degF] DO Justice Kuns Work Phone: [facility] 07-11-2023 09:50-0500 Body weight 78.47 kg DO Justice Kuns Work Phone: [facility] 07-11-2023 09:50-0500 Diastolic blood pressure 70 mm[Hg] DO Justice Kuns Work Phone: [facility] 07-11-2023 09:50-0500 Heart rate 58 /min DO Justice Kuns Work Phone: [facility] 07-11-2023 09:50-0500 SaO2% (BldA) [Mass fraction] 97 % DO Justice Kuns Work Phone: [facility] 07-11-2023 09:50-0500 Systolic blood pressure 120 mm[Hg] DO Justice Kuns Work Phone: [facility] 06-27-2023 09:00-0500 Body height 173.99 cm Justice Kuns Other [employer] Other 06-27-2023 09:00-0500 Body mass index (BMI) [Ratio] 25.77 kg/m2 Justice Kuns Other [employer] Other 06-27-2023 09:00-0500 Body weight 78.02 kg Justice Kuns Other [employer] Other 06-27-2023 09:00-0500 Diastolic blood pressure 60 mm[Hg] Justice Kuns Other [facility] [employer] Other 06-27-2023 09:00-0500 Respiratory rate 16 /min Justice Kuns Other [employer] Other 06-27-2023 09:00-0500 Systolic blood pressure 90 mm[Hg] Justice Kuns Other [facility] [employer] Other 05-26-2023 09:00-0500 Body height 173.99 cm Justice Kuns Other [facility] 05-26-2023 09:00-0500 Body mass index (BMI) [Ratio] 25.92 kg/m2 Justice Kuns Other [facility] [employer] Other 05-26-2023 09:00-0500 Body weight 78.47 kg Justice Kuns Other [facility] 05-26-2023 09:00-0500 Diastolic blood pressure 70 mm[Hg] Justice Kuns Other [facility] 05-26-2023 09:00-0500 Respiratory rate 16 /min Justice Kuns Other [facility] [employer] Other 05-26-2023 09:00-0500 SaO2% (BldA) [Mass fraction] 97 % Justice Kuns Other [employer] Other 05-26-2023 09:00-0500 Systolic blood pressure 142 mm[Hg] Justice Kuns Other [facility] 03-24-2023 08:40-0500 Body height 173.99 cm Norm Cardozo Other [employer] Other 03-24-2023 08:40-0500 Body mass index (BMI) [Ratio] 26.37 kg/m2 Norm Carodzo Other [employer] Other 03-24-2023 08:40-0500 Body weight 79.83 kg Norm Cardozo Other [employer] Other 02-16-2023 12:45-0400 Body height 173.99 cm Justice Kuns Other [employer] Other 02-16-2023 12:45-0400 Body mass index (BMI) [Ratio] 26.37 kg/m2 Justice Kuns Other [employer] Other 02-16-2023 12:45-0400 Body weight 79.83 kg Justice Kuns Other [employer] Other 02-16-2023 12:45-0400 Diastolic blood pressure 64 mm[Hg] Justice Kuns Other [employer] Other 02-16-2023 12:45-0400 Respiratory rate 16 /min Justice Kuns Other [employer] Other 02-16-2023 12:45-0400 SaO2% (BldA) [Mass fraction] 98 % Justice Kuns Other [employer] Other 02-16-2023 12:45-0400 Systolic blood pressure 116 mm[Hg] Justice Kuns Other [facility] [employer] Other 02-11-2023 10:37-0400 Body height 175.26 cm Justice R Kuns Work Phone: [facility] [address] DO Work Phone: 02-11-2023 10:37-0400 Body mass index (BMI) [Ratio] 26.14 kg/m2 Justice R Kuns Work Phone: [facility] [facility] DO Work Phone: 02-11-2023 10:37-0400 Body surface area Derived from formula 1.96 m2 Justice R Kuns Work Phone: [facility] [address] DO Work Phone: 02-11-2023 10:37-0400 Body weight 80.29 kg Justice R Kuns Work Phone: [facility] [address] DO Work Phone: 02-11-2023 10:37-0400 Diastolic blood pressure 82 mm[Hg] Justice R Kuns Work Phone: [facility] [facility] DO Work Phone: 02-11-2023 10:37-0400 Heart rate 63 /min Justice R Kuns Work Phone: [facility] [facility] DO Work Phone: 02-11-2023 10:37-0400 Systolic blood pressure 138 mm[Hg] Justice R Kuns Work Phone: [facility] DO Work Phone: 02-01-2023 08:45-0400 Body height 173.99 cm Justice Kuns Other [employer] Other 02-01-2023 08:45-0400 Body mass index (BMI) [Ratio] 26.52 kg/m2 Justice Kuns Other [employer] Other 02-01-2023 08:45-0400 Body weight 80.29 kg Justice Kuns Other [employer] Other 02-01-2023 08:45-0400 Diastolic blood pressure 70 mm[Hg] Justice Kuns Other [employer] Other 02-01-2023 08:45-0400 Respiratory rate 18 /min Justice Kuns Other [employer] Other 02-01-2023 08:45-0400 SaO2% (BldA) [Mass fraction] 99 % Justice Kuns Other [employer] Other 02-01-2023 08:45-0400 Systolic blood pressure 134 mm[Hg] Justice Kuns Other [employer] Other 01-18-2023 08:45-0400 Body height 173.99 cm Justice Kuns Other [employer] Other 01-18-2023 08:45-0400 Body mass index (BMI) [Ratio] 26.07 kg/m2 Justice Kuns Other [employer] Other 01-18-2023 08:45-0400 Body weight 78.93 kg Justice Kuns Other [employer] Other 01-18-2023 08:45-0400 Diastolic blood pressure 60 mm[Hg] Justicesuly Fagans Other [employer] Other 01-18-2023 08:45-0400 Respiratory rate 16 /min Justice Fagans Other [employer] Other 01-18-2023 08:45-0400 SaO2% (BldA) [Mass fraction] 99 % Justice Fagans Other [employer] Other 01-18-2023 08:45-0400 Systolic blood pressure 96 mm[Hg] Justice Fagans Other [employer] Other 01-10-2023 09:00-0400 Body height 173.99 cm Ignacia Ryanamerica Other [employer] Other 01-10-2023 09:00-0400 Body mass index (BMI) [Ratio] 27.72 kg/m2 Ignacia Molina Other [employer] Other 01-10-2023 09:00-0400 Body temperature 97.3 [degF] Ignacia Molina Other [employer] Other 01-10-2023 09:00-0400 Body weight 83.92 kg Ignacia Salehprosper Other [employer] Other 01-10-2023 09:00-0400 Diastolic blood pressure 68 mm[Hg] Ignacia Salehprosper Other [employer] Other 01-10-2023 09:00-0400 SaO2% (BldA) [Mass fraction] 96 % Ignacia Salehprosper Other [employer] Other 01-10-2023 09:00-0400 Systolic blood pressure 110 mm[Hg] Ignacia Molina Other [employer] Other 12-27-2022 09:15-0400 Body height 173.99 cm Justice Kuns Other [employer] Other 12-27-2022 09:15-0400 Body mass index (BMI) [Ratio] 26.4 kg/m2 Justice Kuns Other [employer] Other 12-27-2022 09:15-0400 Body weight 79.92 kg Justice Kuns Other [employer] Other 12-27-2022 09:15-0400 Diastolic blood pressure 80 mm[Hg] Justice Kuns Other [employer] Other 12-27-2022 09:15-0400 Respiratory rate 16 /min Justice Kuns Other [employer] Other 12-27-2022 09:15-0400 SaO2% (BldA) [Mass fraction] 96 % Justice Kuns Other [employer] Other 12-27-2022 09:15-0400 Systolic blood pressure 122 mm[Hg] Justice Kuns Other [employer] Other 12-21-2022 14:45-0400 Body height 173.99 cm Justice Kuns Other [employer] Other 12-21-2022 14:45-0400 Body mass index (BMI) [Ratio] 26.52 kg/m2 Justice Kuns Other [employer] Other 12-21-2022 14:45-0400 Body weight 80.29 kg Justice Kuns Other [employer] Other 12-21-2022 14:45-0400 Diastolic blood pressure 60 mm[Hg] Justice Kuns Other [employer] Other 12-21-2022 14:45-0400 Respiratory rate 16 /min Justice Kuns Other [employer] Other 12-21-2022 14:45-0400 SaO2% (BldA) [Mass fraction] 96 % Justice Kuns Other [employer] Other 12-21-2022 14:45-0400 Systolic blood pressure 128 mm[Hg] Justice Kuns Other [employer] Other 09-02-2022 10:45-0400 Body height 173.99 cm Justice Kuns Other [employer] [employer] Other 09-02-2022 10:45-0400 Body mass index (BMI) [Ratio] 27.27 kg/m2 Justice Kuns Other [employer] Other 09-02-2022 10:45-0400 Body weight 82.56 kg Justice Kuns Other [employer] Other 09-02-2022 10:45-0400 Diastolic blood pressure 78 mm[Hg] Justice Kuns Other [employer] Other 09-02-2022 10:45-0400 Respiratory rate 16 /min Justice Kuns Other [employer] Other 09-02-2022 10:45-0400 SaO2% (BldA) [Mass fraction] 96 % Justice Kuns Other [employer] Other 09-02-2022 10:45-0400 Systolic blood pressure 130 mm[Hg] Justice Kuns Other [employer] Other 2022 11:30-0400 Body height 173.99 cm Justice Kuns Other [employer] Other 2022 11:30-0400 Body mass index (BMI) [Ratio] 26.52 kg/m2 Justice Kuns Other [employer] Other 2022 11:30-0400 Body weight 80.29 kg Justice Kuns Other [employer] Other 2022 11:30-0400 Diastolic blood pressure 78 mm[Hg] Justice Kuns Other [employer] Other 2022 11:30-0400 Respiratory rate 16 /min Justice Kuns Other [employer] Other 2022 11:30-0400 Systolic blood pressure 126 mm[Hg] Justice Kuns Other [employer] Other 07-15-2022 10:30-0500 Body height 173.99 cm Justice Kuns Other [employer] Other 07-15-2022 10:30-0500 Body mass index (BMI) [Ratio] 26.97 kg/m2 Justice Kuns Other [employer] Other 07-15-2022 10:30-0500 Body weight 81.65 kg Justicesuly Singh Other [employer] Other 07-15-2022 10:30-0500 Diastolic blood pressure 82 mm[Hg] Justicesuly Fagans Other [employer] Other 07-15-2022 10:30-0500 Respiratory rate 16 /min Justice Singh Other [employer] Other 07-15-2022 10:30-0500 SaO2% (BldA) [Mass fraction] 95 % Justice Singh Other [employer] Other 07-15-2022 10:30-0500 Systolic blood pressure 142 mm[Hg] Justice Fagans Other [employer] Other 07-13-2022 09:30-0500 Body height 173.99 cm Ignacia Molina Other [employer] Other 07-13-2022 09:30-0500 Body mass index (BMI) [Ratio] 26.37 kg/m2 Ignacia Molina Other [employer] Other 07-13-2022 09:30-0500 Body temperature 96.5 [degF] Ignacia Molina Other [employer] Other 07-13-2022 09:30-0500 Body weight 79.83 kg Ignacia Molina Other [employer] Other 07-13-2022 09:30-0500 Diastolic blood pressure 58 mm[Hg] Ignacia Molina Other [facility] [employer] Other 07-13-2022 09:30-0500 SaO2% (BldA) [Mass fraction] 99 % Ignacia Molina Other [facility] [employer] Other 07-13-2022 09:30-0500 Systolic blood pressure 100 mm[Hg] Ignacia Molina Other [facility] [employer] Other 05-31-2022 15:46-0500 Diastolic blood pressure 90 mm[Hg] DO Justice Kuns Work Phone: [facility] 05-31-2022 15:46-0500 Heart rate 51 /min DO Justice Kuns Work Phone: [facility] 05-31-2022 15:46-0500 Respiratory rate 18 /min DO Justice Kuns Work Phone: [facility] 05-31-2022 15:46-0500 SaO2% (BldA) [Mass fraction] 100 % DO Justice Kuns Work Phone: [facility] 05-31-2022 15:46-0500 Systolic blood pressure 181 mm[Hg] DO Justice Kuns Work Phone: [facility] 05-31-2022 12:02-0500 Body height 175.26 cm DO Justice Kuns Work Phone: [facility] 05-31-2022 12:02-0500 Body temperature 97.8 [degF] DO Justice Kuns Work Phone: [facility] 05-31-2022 12:02-0500 Body weight 81 kg DO Justice Kuns Work Phone: [facility] 05-27-2022 09:30-0500 Body height 173.99 cm Justice [employer] Other [employer] Other 05-27-2022 09:30-0500 Body mass index (BMI) [Ratio] 26.37 kg/m2 Justice Kuns Other [employer] Other 05-27-2022 09:30-0500 Body weight 79.83 kg Justice Kuns Other [employer] Other 05-27-2022 09:30-0500 Diastolic blood pressure 60 mm[Hg] Justice Kuns Other [employer] Other 05-27-2022 09:30-0500 Respiratory rate 16 /min Justice Kuns Other [employer] Other 05-27-2022 09:30-0500 SaO2% (BldA) [Mass fraction] 96 % Justice Kuns Other [employer] Other 05-27-2022 09:30-0500 Systolic blood pressure 115 mm[Hg] Justice Kuns Other [employer] Other 02-25-2022 09:30-0400 Body height 173.99 cm Justice Kuns Other [employer] Other 02-25-2022 09:30-0400 Body mass index (BMI) [Ratio] 26.67 kg/m2 Justice Kuns Other [employer] Other 02-25-2022 09:30-0400 Body weight 80.74 kg Justice Kuns Other [employer] Other 02-25-2022 09:30-0400 Diastolic blood pressure 62 mm[Hg] Justice Kuns Other [employer] [facility] [employer] Other 02-25-2022 09:30-0400 Respiratory rate 16 /min Justicesuly Fagans Other [employer] [facility] [employer] Other 02-25-2022 09:30-0400 SaO2% (BldA) [Mass fraction] 99 % Justicesuly Fagans Other [employer] [facility] [employer] Other 02-25-2022 09:30-0400 Systolic blood pressure 120 mm[Hg] Justicesuly Fagans Other [employer] [facility] [employer] Other 02-22-2022 08:00-0400 65 1 Justice R Kuns Work Phone: [facility] [employer] 250 DO Work Phone: Comment on above: [id number] 02-10-2022 15:28-0400 Body height 175.26 cm Justice R Kuns Work Phone: [facility] [employer] 250 DO Work Phone: 02-10-2022 15:28-0400 Body mass index (BMI) [Ratio] 26.58 kg/m2 Justice R Kuns Work Phone: [facility] [employer] 250 DO Work Phone: 02-10-2022 15:28-0400 Body surface area Derived from formula 1.98 m2 Justice R Kuns Work Phone: [facility] [employer] 250 DO Work Phone: 02-10-2022 15:28-0400 Body weight 81.65 kg Justice R Kuns Work Phone: [facility] [employer] 250 DO Work Phone: 02-10-2022 15:28-0400 Diastolic blood pressure 80 mm[Hg] Justice R Kuns Work Phone: [facility] 250 DO Work Phone: 02-10-2022 15:28-0400 Heart rate 76 /min Justice R Kuns Work Phone: [facility] 250 DO Work Phone: 02-10-2022 15:28-0400 Systolic blood pressure 110 mm[Hg] Justice R Kuns Work Phone: [facility] 250 DO Work Phone: 12-28-2021 11:06-0400 Blood Pressure Location Tristan RICE [facility] [place] 12-28-2021 11:06-0400 Diastolic blood pressure 86 mm[Hg] Tristan RICE [facility] [place] 12-28-2021 11:06-0400 Heart rate 74 /min Tristan RICE [facility] [place] 12-28-2021 11:06-0400 Systolic blood pressure 140 mm[Hg] Tristan RICE [facility] [place] 08-25-2021 09:30-0400 Body height 173.99 cm Justice [employer] Other [employer] [facility] [employer] Other 08-25-2021 09:30-0400 Body mass index (BMI) [Ratio] 26.52 kg/m2 Justicesuly Fagans Other [facility] [employer] Other 08-25-2021 09:30-0400 Body weight 80.29 kg Justice Shanes Other [employer] Other 08-25-2021 09:30-0400 Diastolic blood pressure 64 mm[Hg] Justice Kuns Other [employer] Other 08-25-2021 09:30-0400 Respiratory rate 16 /min Justice Kuns Other [employer] Other 08-25-2021 09:30-0400 SaO2% (BldA) [Mass fraction] 97 % Justice Kuns Other [employer] Other 08-25-2021 09:30-0400 Systolic blood pressure 110 mm[Hg] Justice Kuns Other [employer] Other 07-13-2021 10:15-0500 Body height 173.99 cm Gerhard Grissom Other [employer] Other 07-13-2021 10:15-0500 Body mass index (BMI) [Ratio] 26.97 kg/m2 Gerhard Grissom Other [employer] Other 07-13-2021 10:15-0500 Body temperature 96.2 [degF] Gerhard Grissom Other [employer] Other 07-13-2021 10:15-0500 Body weight 81.65 kg Gerhard Grissom Other [employer] Other 07-13-2021 10:15-0500 Diastolic blood pressure 70 mm[Hg] Gerhard Grissom Other [employer] Other 07-13-2021 10:15-0500 SaO2% (BldA) [Mass fraction] 98 % Gerhard Grissom Other [employer] [facility] [employer] Other 07-13-2021 10:15-0500 Systolic blood pressure 132 mm[Hg] Gerhard Grissom Other [employer] Other 02-19-2021 10:03-0400 Body height 175.26 cm Justice [employer] Work Phone: [facility] [employer] 250 DO Work Phone: 02-19-2021 10:03-0400 Body mass index (BMI) [Ratio] 26.14 kg/m2 Justice R [employer] Work Phone: [facility] [employer] 250 DO Work Phone: 02-19-2021 10:03-0400 Body surface area Derived from formula 1.96 m2 Justice [employer] Work Phone: [facility] [employer] 250 DO Work Phone: 02-19-2021 10:03-0400 Body weight 80.29 kg Justice R [employer] Work Phone: [facility] [employer] 250 DO Work Phone: 02-19-2021 10:03-0400 Diastolic blood pressure 72 mm[Hg] Justice R [employer] Work Phone: [facility] 250 DO Work Phone: 02-19-2021 10:03-0400 Heart rate 68 /min Justice R [employer] Work Phone: [facility] [place] 250 DO Work Phone: 02-19-2021 10:03-0400 Systolic blood pressure 120 mm[Hg] Justice R Kuns Work Phone: [facility] 250 DO Work Phone: Encounters Encounter Date Encounter Type Care Provider Facility Start: 02-26-2025 End: 02-26-2025 ambulatory Justice Kuns DO Work Phone: [facility] Work Phone: Start: 02-26-2025 End: 02-26-2025 Patient encounter procedure Justice R Shanes DO -[facility] [place] Work Phone: Start: 02-19-2025 End: 02-19-2025 Patient encounter procedure Justice R Shanes DO -[facility] [place] Work Phone: Start: 02-19-2025 End: 02-19-2025 ambulatory Justice Kuns DO Work Phone: [facility] Work Phone: Start: 02-06-2025 End: 02-09-2025 Evaluation and management of inpatient Jg Olvera MD -[address] [place] [address] [employer] Work Phone: Start: 02-06-2025 Non-patient / Non-visit Winnie Martin MD -[facility] Card[facility] Work Phone: Start: 02-01-2025 End: 02-01-2025 Departed Referred Tresa Girard MD -Pre-Surgical Testin g Work Phone: Start: 02-01-2025 End: 02-01-2025 Patient encounter procedure Tresa Girard MD -Pre-Surgical Testing Work Phone: Start: 02-01-2025 End: 02-01-2025 ambulatory Justice Kuns DO Work Phone: [facility] Work Phone: Start: 11-15-2024 End: 11-15-2024 ambulatory Justice Kuns DO Work Phone: [facility] Work Phone: Start: 11-15-2024 End: 11-15-2024 Patient encounter procedure Justice R Kuns DO -[facility] Work Phone: Start: 11-13-2024 End: 11-13-2024 Office outpatient visit 25 minutes Renny Valedon DO Work Phone: [facility] Comment on above: ASHD (arteriosclerot ic heart disease); History of PTCA; Primary hypertension; Mixed hyperlipidemia; Angina, class I; Aortic valve insufficiency, etiology of cardiac valve disease unspecified; Abdominal aortic aneurysm (AAA) without rupture, unspecified part; BMI 26.0-26.9,adult; Former smoker Start: 11-13-2024 End: 11-13-2024 ambulatory [facility] Ambulatory Start: 10-15-2024 End: 10-15-2024 Patient encounter procedure Justice Singh DO Work Phone: [facility] [place] Work Phone: Start: 10-15-2024 End: 10-15-2024 ambulatory Justice Singh DO Work Phone: [facility] Work Phone: Start: 10-01-2024 End: 10-01-2024 Patient encounter procedure Justice Singh DO Work Phone: [facility] Physician [facility] Work Phone: Start: 08-07-2024 End: 08-07-2024 Patient encounter procedure Justice Singh DO Work Phone: [facility] Physician [facility] Work Phone: Start: 08-07-2024 End: 08-07-2024 ambulatory Justice Shanes DO Work Phone: [facility] Work Phone: Start: 07-23-2024 End: 07-23-2024 ambulatory Justice Kuns DO Work Phone: [facility] Work Phone: Start: 07-23-2024 End: 07-23-2024 Patient encounter procedure Justice Kuns DO Work Phone: [facility] Physician Group-[facility] Work Phone: Start: 07-19-2024 End: 07-19-2024 ambulatory Justice Kuns DO Work Phone: [facility] Work Phone: Start: 07-19-2024 End: 07-19-2024 Patient encounter procedure Justice Kuns DO Work Phone: [facility] Physician Group-[facility] [place] Work Phone: Start: 07-17-2024 End: 07-17-2024 Bamboo flowsheet Clarita Brink CLINICAL RN [facility] Start: 07-17-2024 End: 07-17-2024 Bamboo flowsheet Clarita Brink CLINICAL RN [facility] Start: 07-17-2024 End: 07-17-2024 ambulatory Clarita Brink CLINICAL RN [facility] Comment on above: Lumbar paraspinal mu scle spasm (Primary Dx); Weakness of both lower extremities; Spasm of right piriformis muscle; Right-sided low back pain with right-sided sciatica, unspecified chronicity Start: 07-12-2024 End: 07-12-2024 Patient encounter procedure Justice Kuns DO Work Phone: [facility] [place] Work Phone: Start: 07-12-2024 End: 07-12-2024 ambulatory Justice Kuns DO Work Phone: [facility] Work Phone: Start: 07-11-2024 End: 07-11-2024 Bamboo flowsheet Judi Muir PT Work Phone: [facility] Start: 07-11-2024 End: 07-11-2024 Bamboo flowsheet Judi Muir PT Work Phone: [facility] Start: 07-11-2024 End: 07-11-2024 ambulatory Judi Muir PT Work Phone: [facility] Comment on above: Lumbar paraspinal mu scle spasm (Primary Dx); Weakness of both lower extremities; Spasm of right piriformis muscle; Right-sided low back pain with right-sided sciatica, unspecified chronicity Start: 07-09-2024 End: 07-09-2024 Bamboo flowsheet Clarita Pickett CLINICAL RN [facility] Start: 07-09-2024 End: 07-09-2024 Bamboo flowsheet Clarita Pickett CLINICAL RN [facility] Start: 07-09-2024 End: 07-09-2024 ambulatory Clarita Pickett CLINICAL RN [facility] Comment on above: Lumbar paraspinal mu scle spasm (Primary Dx); Weakness of both lower extremities; Spasm of right piriformis muscle; Right-sided low back pain with right-sided sciatica, unspecified chronicity Start: 07-06-2024 End: 07-06-2024 Bamboo flowsheet Jeremy Celis CLINICAL RN [facility] Start: 07-06-2024 End: 07-06-2024 Bamboo flowsheet Jeremy Celis CLINICAL RN [facility] Start: 07-06-2024 End: 07-06-2024 ambulatory Jeremy Celis CLINICAL RN [facility] Comment on above: Lumbar paraspinal mu scle spasm (Primary Dx); Weakness of both lower extremities Start: 07-04-2024 End: 07-04-2024 Bamboo flowsheet Judi Muir PT Work Phone: [facility] Start: 07-04-2024 End: 07-04-2024 Bamboo flowsheet Judi Muir PT Work Phone: [facility] Start: 07-04-2024 End: 07-04-2024 ambulatory Judi Muir PT Work Phone: [facility] Comment on above: Lumbar paraspinal mu scle spasm (Primary Dx); Weakness of both lower extremities Start: 07-02-2024 End: 07-02-2024 ambulatory [facility] Work Phone: Start: 07-02-2024 End: 07-02-2024 Patient encounter procedure [facility] Physician [facility] Work Phone: Start: 06-15-2024 End: 06-15-2024 Telephone encounter Miguelangel Morse MD Work Phone: Cardiology Start: 06-11-2024 End: 06-11-2024 Patient encounter procedure Miguelangel Morse MD Work Phone: Cardiology Comment on above: Coronary artery dise ase involving [place] coronary artery of [place] heart, unspecified whether angina present (Primary Dx); Pre-procedural cardiovascular examination; Advanced age; Essential hypertension; Dyslipidemia Start: 06-11-2024 End: 06-11-2024 Patient encounter status Miguelangel Morse MD Work Phone: [facility] Start: 06-11-2024 Encounter for preprocedural cardiovascular examination MIGUELANGEL MORSE [facility] Start: 06-11-2024 End: 06-11-2024 ambulatory MIGUELANGEL MORSE Facility:[facility] Start: 04-17-2024 End: 04-17-2024 Patient encounter procedure [facility] Physician [facility] [place] Work Phone: Start: 04-13-2024 End: 04-13-2024 Telephone encounter Miguelangel Morse MD Work Phone: Cardiology Comment on above: Appointment Start: 04-05-2024 End: 04-05-2024 ambulatory Justice Singh DO Work Phone: [facility] Work Phone: Start: 04-05-2024 End: 04-05-2024 Patient encounter procedure Justice Fagans DO Work Phone: [facility] Physician [facility] Cardiology Work Phone: Start: 03-15-2024 End: 03-15-2024 Office outpatient visit 25 minutes Renny Christopher DO Work Phone: [facility] Comment on above: ASHD (arteriosclerot ic heart disease); History of PTCA; Angina, class I (CMS-HCC); Primary hypertension; Mixed hyperlipidemia; Type 2 diabetes mellitus with other specified complication, without long-term current use of insulin; BMI 26.0-26.9,adult; Former smoker Start: 03-15-2024 End: 03-15-2024 ambulatory [facility] Amb[facility] Start: 03-05-2024 End: 03-05-2024 ambulatory DO Justicesuly Singh Work Phone: [facility] Work Phone: Start: 03-05-2024 End: 03-05-2024 Patient encounter procedure DO Justicesuly Singh Work Phone: [facility]ician Group-[facility] Work Phone: Start: 02-01-2024 End: 02-01-2024 ambulatory DO Justicesuly Singh Work Phone: [facility] Work Phone: Start: 02-01-2024 End: 02-01-2024 Patient encounter procedure DO Justicesuly Singh Work Phone: [facility] Physician Group-[facility] [place] Work Phone: Start: 01-25-2024 End: 01-25-2024 Orders Only Dinah Worthy MD Work Phone: [facility] Comment on above: Atherosclerosis of n ative coronary artery of [place] heart without angina pectoris (Primary Dx) Appointment (New pat ient letter sent via mail) Start: 01-17-2024 End: 01-18-2024 Evaluation and management of inpatient DO Justicesuly Singh Work Phone: [facility] Work Phone: Start: 01-17-2024 End: 01-18-2024 observation encounter DO Justicesuly Singh Work Phone: [facility] Work Phone: Start: 01-17-2024 End: 01-18-2024 Non-patient / Non-visit DO Justicesuly Singh Work Phone: [facility] Physician Group-[facility] Cardiology Work Phone: Start: 01-03-2024 End: 01-03-2024 ambulatory [facility] Work Phone: Start: 01-03-2024 End: 01-03-2024 Patient encounter procedure [facility] Physician [facility] [place] Work Phone: Start: 12-26-2023 Non-patient / Non-visit [facility] Physician [facility] [place] Work Phone: Start: 11-07-2023 End: 11-07-2023 ambulatory DO Justice Kuns Work Phone: [facility] Work Phone: Start: 11-07-2023 End: 11-07-2023 Patient encounter procedure DO Justice Kuns Work Phone: [facility] Physician [facility] Work Phone: Start: 10-06-2023 End: 10-06-2023 ambulatory DO Justice Kuns Work Phone: [facility] Work Phone: Start: 10-06-2023 End: 10-06-2023 Patient encounter procedure DO Justice Kuns Work Phone: [facility] Physician [facility] Cardiology Work Phone: Start: 10-04-2023 End: 10-04-2023 ambulatory DO Justice Kuns Work Phone: [facility] Work Phone: Start: 10-04-2023 End: 10-04-2023 Patient encounter procedure DO Justice Kuns Work Phone: [facility] Physician [facility] [place] Work Phone: Start: 09-19-2023 End: 09-19-2023 Non-patient / Non-visit DO Justice Kuns Work Phone: [facility] Physician [facility] Out[facility] Work Phone: Start: 09-17-2023 End: 09-19-2023 Evaluation and management of inpatient DO Justice Singh Work Phone: [facility] [place] [facility] Work Phone: Start: 09-13-2023 End: 09-13-2023 Office consultation new/estab patient 80 min Renny Christopher DO Work Phone: [facility] Comment on above: ASHD (arteriosclerot ic heart disease); Type 2 diabetes mellitus with other specified complication, without long-term current use of insulin (Multi); Hyperlipidemia, unspecified hyperlipidemia type; BMI 25.0-25.9,adult; Former smoker Start: 08-31-2023 End: 08-31-2023 ambulatory DO Justice Singh Work Phone: [facility] Work Phone: Start: 08-31-2023 End: 08-31-2023 Patient encounter procedure DO Justice Singh Work Phone: [facility] Physician Group-[facility] Work Phone: Start: 08-23-2023 End: 08-24-2023 ambulatory MAC CASTILLO [facility] Start: 08-23-2023 End: 08-23-2023 Office outpatient new 60 minutes Mac Csatillo MD, MS Work Phone: [facility] Comment on above: CAD, multiple vessel (Primary Dx) Start: 08-10-2023 End: 08-11-2023 ambulatory MAC CASTILLO [facility] Start: 08-10-2023 End: 08-10-2023 Subsequent hospital visit by physician Outside Study [facility] Comment on above: Arrived Start: 2023 End: 2023 Admission to same day surgery center DO Justice Singh Work Phone: [facility]-[employer] Work Phone: Start: 2023 End: 2023 ambulatory DO Justice Kuns Work Phone: [facility] Work Phone: Start: 08-01-2023 End: 08-01-2023 ambulatory DO Justice Kuns Work Phone: [facility] Work Phone: Start: 08-01-2023 End: 08-01-2023 Patient encounter procedure DO Justice Kuns Work Phone: [facility]ician Group-[facility] Work Phone: Start: 07-29-2023 End: 07-29-2023 ambulatory DO Jusitce Kuns Work Phone: [facility] Work Phone: Start: 07-29-2023 End: 07-29-2023 Patient encounter procedure DO Justice Kuns Work Phone: [facility]-Pre-Surgical Testing Work Phone: Start: 07-25-2023 End: 07-25-2023 Patient encounter procedure DO Justice Kuns Work Phone: [facility]-Nuc Med [facility] [place] Work Phone: Start: 07-19-2023 End: 07-19-2023 Patient encounter procedure DO Justice Kuns Work Phone: [facility]-CT Scan [facility] [place] Work Phone: Start: 07-12-2023 End: 07-12-2023 Patient encounter procedure DO Justice Kuns Work Phone: [facility] Physician Group-[facility] Work Phone: Start: 07-11-2023 End: 07-11-2023 Patient encounter procedure DO Justice Kuns Work Phone: [facility] Physician Group-[facility] Work Phone: Start: 06-27-2023 End: 06-27-2023 ambulatory Justice Kuns Other [employer] Other Start: 06-27-2023 Office outpatient vi sit 25 minutes Justice Kuns [facility] Start: 06-06-2023 End: 06-06-2023 ambulatory Justice Kuns Other [employer] Other Start: 06-06-2023 Telephone encounter [facility] Start: 06-06-2023 End: 06-06-2023 Patient encounter procedure DO Justice Kuns Work Phone: [facility]-Ultrasound [facility] [place] Work Phone: Start: 05-26-2023 End: 05-26-2023 ambulatory Justice Kuns Other [employer] Other Start: 05-26-2023 Patient encounter procedure Justice Kuns [facility] Start: 05-26-2023 End: 05-26-2023 Patient encounter procedure DO Justice Kuns Work Phone: [facility] Physician Group-[facility] Work Phone: Start: 05-17-2023 End: 05-17-2023 ambulatory DO Justice Kuns Work Phone: [facility] Work Phone: Start: 05-17-2023 End: 05-17-2023 Patient encounter procedure DO Justice Kuns Work Phone: [facility] [place] Work Phone: Start: 04-20-2023 (Procedure) René Davis [facility] Start: 04-20-2023 End: 04-20-2023 ambulatory Mercedes Davis Other [employer] Other Start: 04-13-2023 End: 04-13-2023 ambulatory Mercedes Davis Other [employer] Other Start: 04-13-2023 Office outpatient ne w 45 minutes Mercedes Davis [facility] [place] Start: 04-13-2023 Telephone encounter Norm Cardozo [facility] Start: 03-25-2023 End: 03-25-2023 ambulatory Norm Cardozo Other [employer] Other Start: 03-25-2023 Telephone encounter Norm Cardozo [facility] [employer] Start: 03-24-2023 End: 03-24-2023 ambulatory Norm Cardozo Other [employer] Other Start: 03-24-2023 Office outpatient ne w 30 minutes Norm Cardozo [facility] Start: 02-16-2023 End: 02-16-2023 ambulatory Justice Kuns Other [employer] Other Start: 02-16-2023 Office outpatient vi sit 25 minutes Justice Kuns [facility] [place] Start: 02-11-2023 Office outpatient vi sit 25 minutes Justice R Kuns Work Phone: [facility]-[place] [address] DO Work Phone: Start: 02-11-2023 ambulatory Mourhaf Traboulssi Faci lity: Start: 02-08-2023 End: 02-08-2023 ambulatory DO Justice Kuns Work Phone: [facility] Work Phone: Start: 02-08-2023 End: 02-08-2023 Patient encounter procedure DO Justice Kuns Work Phone: [facility]-MRI [address] Work Phone: Start: 02-01-2023 End: 02-01-2023 ambulatory Justice Kuns Other [employer] Other Start: 02-01-2023 Office outpatient vi sit 25 minutes [facility] Start: 01-24-2023 End: 01-24-2023 ambulatory Justice Kuns Other [employer] Other Start: 01-24-2023 Telephone encounter Justice Kuns [facility] [place] Start: 01-18-2023 End: 01-18-2023 ambulatory Justice Kuns Other [employer] Other Start: 01-18-2023 Office outpatient vi sit 25 minutes Justice Kuns [facility] Start: 01-10-2023 End: 01-10-2023 Patient encounter procedure DO Justice Kuns Work Phone: [facility]-Ultrasound [facility] Start: 01-10-2023 End: 01-10-2023 ambulatory DO Justice Kuns Work Phone: [facility] Work Phone: Start: 12-27-2022 End: 12-27-2022 ambulatory Justice Kuns Other [employer] Other Start: 12-27-2022 Office outpatient vi sit 25 minutes Justice Kuns [facility] Start: 12-22-2022 End: 12-22-2022 ambulatory DO Justice Kuns Work Phone: [facility] Work Phone: Start: 12-22-2022 End: 12-22-2022 Patient encounter procedure DO Justice Kuns Work Phone: [facility]-Ultrasound [facility] [place] Work Phone: Start: 12-21-2022 End: 12-21-2022 ambulatory Justice Kuns Other [employer] Other Start: 12-21-2022 Office outpatient vi sit 25 minutes Justice Kuns [facility] Start: 12-10-2022 End: 12-10-2022 ambulatory Justice Kuns Other [employer] Other Start: 12-10-2022 Telephone encounter Justice Kuns [facility] [place] Start: 11-17-2022 End: 11-17-2022 ambulatory Justice Kuns Other [employer] Other Start: 11-17-2022 Telephone encounter Justice Kuns [facility] [place] Start: 09-21-2022 End: 09-21-2022 ambulatory DO Justice Kuns Work Phone: [facility] Work Phone: Start: 09-21-2022 End: 09-21-2022 Patient encounter procedure DO Justice Kuns Work Phone: [facility]-Lab [place] Work Phone: Start: 09-02-2022 End: 09-02-2022 ambulatory Justice Kuns Other [employer] Other Start: 09-02-2022 Office outpatient vi sit 15 minutes Justice Kuns [facility] Medicine [place] Start: 08-06-2022 ambulatory Mourhaf Traboulssi Faci lity: Start: 2022 End: 2022 ambulatory Justice Kuns Other [employer] Other Start: 2022 Office outpatient vi sit 25 minutes Justice Kuns [facility] [place] Start: 07-20-2022 End: 07-20-2022 ambulatory Justice Kuns Other [employer] Other Start: 07-20-2022 Telephone encounter Justice Kuns [facility] [place] Start: 07-15-2022 Office outpatient vi sit 25 minutes Justice Kuns [facility] [place] Start: 07-15-2022 End: 07-15-2022 ambulatory DO Justice Kuns Work Phone: [facility] Work Phone: Start: 07-15-2022 End: 07-15-2022 Patient encounter procedure DO Justice Kuns Work Phone: [facility]-XRay [facility] [place] Work Phone: Start: 07-13-2022 Follow-up encounter Ign[facility] Start: 07-13-2022 End: 07-13-2022 ambulatory DO Justice Kuns Work Phone: [facility] Work Phone: Start: 07-13-2022 End: 07-13-2022 Patient encounter procedure DO Justice Kuns Work Phone: [facility]-Ultrasound [facility] Start: 06-23-2022 End: 06-23-2022 ambulatory Justice Kuns Other [facility] [employer] Other Start: 06-23-2022 Telephone encounter Justice Kuns [facility] Start: 05-31-2022 End: 05-31-2022 Emergency department patient visit DO Justice Kuns Work Phone: [facility]-Emergency Room Work Phone: Start: 05-27-2022 End: 05-27-2022 ambulatory Justice Kuns Other [facility] [employer] Other Start: 05-27-2022 Office outpatient vi sit 25 minutes Justice Kuns [facility] Start: 05-19-2022 End: 05-19-2022 ambulatory DO Justice Kuns Work Phone: [facility] Work Phone: Start: 05-19-2022 End: 05-19-2022 Patient encounter procedure DO Justice Kuns Work Phone: [facility]-Lab [place] Work Phone: Start: 02-25-2022 End: 02-25-2022 ambulatory Justice Shanes Other [employer] Other Start: 02-25-2022 Office outpatient vi sit 25 minutes Justice Kuns [facility] [place] Start: 02-23-2022 Chart Update Justice R Shanes Work Phone: [facility] 250 DO Work Phone: Start: 02-22-[address] Mayra Person Facility:[id number] Start: 02-17-2022 End: 02-17-2022 ambulatory DO Justice Kuns Work Phone: [facility] Work Phone: Start: 02-17-2022 End: 02-17-2022 Patient encounter procedure DO Justice Kuns Work Phone: [facility]-Lab [place] Start: 01-14-2022 End: 01-14-2022 ambulatory Justice Shanes Other [employer] Other Start: 01-14-2022 Telephone encounter Justice Shanes [facility] Start: 12-28-2021 End: 12-28-2021 Patient encounter procedure Tristan DUMONT [facility] [place] Start: 12-23-2021 End: 12-23-2021 ambulatory Justice Kuns Other [employer] Other Start: 12-23-2021 Telephone encounter Justice Kuns [facility] [place] Start: 12-19-2021 End: 12-19-2021 Departed Referred DO Justice Kuns Work Phone: [facility]-Community Outreach Start: 12-03-2021 AUDIT Justice R Shanes Work Phone: [facility] 250 DO Work Phone: Start: 11-17-2021 End: 11-17-2021 ambulatory Justicesuly Singh Other [employer] Other Start: 11-17-2021 Telephone encounter Justice Singh [facility] Start: 08-25-2021 End: 08-25-2021 ambulatory Justicesuly Fagans Other [employer] Other Start: 08-25-2021 Office outpatient vi sit 25 minutes Justice Singh [facility] Start: 07-13-2021 End: 07-13-2021 ambulatory Gerhard Grissom Other [employer] Other Start: 07-13-2021 Office outpatient vi sit 25 minutes Gerhard Grissom [facility] Vascular Surgery Start: 04-29-2021 AUDIT Justice R Shanes Work Phone: [facility] 600 DO Work Phone: Start: 04-29-2021 End: 04-29-2021 ambulatory Justicesuly Singh Other [employer] Other Start: 04-29-2021 Telephone encounter Justice Singh [facility] Start: 02-24-2021 Annual wellness visit Justice ortiz Other [employer] Other Start: 02-19-2021 Office outpatient vi sit 25 minutes Justice R Saniya Work Phone: [facility]-[place] 250 DO Work Phone: Procedures Date Procedure Procedure Detail Performing Clinician Start: 02-06-2025 Screening for occult blood in feces Justice Singh DO Work Phone: Start: 02-06-2025 Plain chest X-ray Justice Singh DO Work Phone: Start: 03-15-2024 History of percutane ous transluminal coronary angioplasty History of PTCA Renny Christopher DO Work Phone: Start: 01-17-2024 CT of chest DO Justice salmeron Work Phone: Start: 01-17-2024 Plain chest X-ray DO Br ett Saniya Work Phone: Start: 01-17-2024 Plain X-ray of left shoulder DO Justice Singh Work Phone: Start: 09-17-2023 Plain chest X-ray DO Br ett Shanes Work Phone: Start: 08-10-2023 CATH AND OR EP TEST NON BILL OUTSIDE STUDY ONLY Mac Castillo MD, MS Work Phone: Start: 2023 CL [facility] COR Angio DO B rett Saniya Work Phone: Start: 07-25-2023 Radionuclide myocard ial perfusion stress study DO Justice Singh Work Phone: Start: 07-19-2023 CT of abdomen and pe lvis without contrast DO Justicesuly Singh Work Phone: Start: 07-11-2023 US scan of aorta DO Eveline suly Singh Work Phone: Start: 06-06-2023 Ultrasonography of liver DO Justicesuly Singh Work Phone: Start: 02-08-2023 MR lumbar spine wo con DO Justicesuly Singh Work Phone: Start: 01-10-2023 US scan of aorta DO Eveline tt Saniya Work Phone: Start: 12-22-2022 Duplex scan of lower limb veins DO Justicesuly Singh Work Phone: Start: 12-22-2022 Plain X-ray of right hip DO Justicesuly Singh Work Phone: Start: 12-22-2022 X-ray of lumbar spin e, six views including bending views DO Justice Singh Work Phone: Start: 12-22-2022 X-ray of right knee DO Justice Singh Work Phone: Start: 07-15-2022 Plain X-ray of left shoulder DO Justice Singh Work Phone: Start: 07-15-2022 X-ray of cervical spine DO Justice Singh Work Phone: Start: 07-13-2022 US scan of aorta DO Eveline Singh Work Phone: Start: 11-19-2020 Transurethral insert ion of prostatic urethral lift implant Tristan DUMONT Start: 09-18-2020 Cystoscopy Tristan Boone Start: 05-23-2020 Thyrotropin [Units/v olume] in Serum or Plasma Outside Study Start: 05-16-2009 Total colonoscopy Justice Singh Work Phone: Start: 12-28-2007 Angioplasty of blood vessel Tristan JULIA Start: 12-28-2007 Placement of stent i n cardiac conduit Tristan DUMONT History of percutane ous transluminal coronary angioplasty History of PTCA Renny Christopher DO Work Phone: Insertion of prostat ic urethral lift implant Justice Singh Work Phone: Operative procedure on hand Justicesuly Singh Work Phone: 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 Justicesuly Singh Work Phone: Tonsillectomy Justicesuly Singh Work Phone: Plan of Treatment Date Care Activity Detail Author Start: 02-11-2030 DTaP/Tdap/Td Vaccine s (2 - Td or Tdap) DTaP/Tdap/Td Vaccines (2 - Td or Tdap) [facility] Start: 02-11-2030 DTaP/Tdap/Td Vaccine s (3 - Td or Tdap) DTaP/Tdap/Td Vaccines (3 - Td or Tdap) [facility] Start: 02-11-2030 Urine microalbumin profile DTaP,Tdap,Td Vaccine (3 - Td or Tdap) [facility] Start: 11-02-2025 Glaucoma screening Diabetes: R etinopathy Screening [facility] Start: 07-24-2025 End: 07-24-2025 Patient encounter procedure 07/24/2025 10:10 AM EDT Office Visit [place] [id number] [place] [address] Renny Christopher DO [address] [facility] [address] [place] [address] [facility] Start: 02-09-2025 [facility] Start: 02-07-2025 [facility] Start: 02-06-2025 Referral to roll grinder [facility] Start: 02-06-2025 [facility] Start: 02-06-2025 Hospital admission [facility] Start: 01-14-2025 Influenza vaccination Influenza Vacc ine (#1) [facility] Start: 11-13-2024 End: 11-13-2024 Patient encounter procedure 11/13/2024 9:50 AM EDT Office Visit [place] [id number] [facility] [address] [place] [address] Renny Christopher, [address] [facility] [address] [place] [address] [facility] Start: 11-05-2024 COVID-19 Vaccine ( season) COVID-19 Vaccine ( season) [facility] Start: 11-02-2024 Glaucoma screening Diabetes: R etinopathy Screening [facility] Start: 10-15-2024 [facility] Start: 09-10-2024 End: 09-10-2024 Follow-up encounter 09/10/2024 2:45 PM EDT [facility] Cardiology [id number] [place] [address] [place] [address] 3 month follow up Cardiology Comment on above: 3 month follow up Start: 08-07-2024 US Thoracic and abdo sarah aorta [facility] Start: 07-17-2024 End: 07-17-2024 ambulatory [facility] Comment on above: Arrived Start: 07-11-2024 End: 07-11-2024 ambulatory [facility] Comment on above: Lumbar paraspinal mu scle spasm (Primary Dx); Weakness of both lower extremities; Spasm of right piriformis muscle; Right-sided low back pain with right-sided sciatica, unspecified chronicity Start: 07-09-2024 End: 07-09-2024 ambulatory [facility] Comment on above: Arrived Start: 07-06-2024 End: 07-06-2024 ambulatory [facility] Comment on above: Arrived Start: 07-04-2024 End: 07-04-2024 ambulatory 07/04/2024 9:30 AM EST Evaluation [facility] [address] [facility] [address] [place] [address] Judi Muir, PT [address] [facility] [address] [place] [address] Arrived [facility] Comment on above: Arrived Start: 06-11-2024 End: 06-11-2024 Patient encounter procedure 06/11/2024 12:45 PM EST Office Visit Cardiology [id number] [place] [address] [place] [address] Clinician, Interventional [address] [place] [address] Atherosclerotic heart disease of [place] coronary artery without angina pectoris. Referral and/or order can be found in Scan Document dated 01/19/2024. Cardiology Comment on above: Atherosclerotic hear t disease of [place] coronary artery without angina pectoris. Referral and/or order can be found in Scan Document dated 01/19/2024. Start: 06-11-2024 End: 06-11-2024 ambulatory 06/11/2024 11:45 AM EST Results Only Cardiology [address] [place] [address] Atherosclerotic heart disease of [place] coronary artery without angina pectoris. Cardiology Comment on above: Atherosclerotic hear t disease of [place] coronary artery without angina pectoris. Start: 06-11-2024 End: 06-11-2024 Patient encounter procedure 06/11/2024 11:15 AM EST Office Visit Cardiology [address] [place] [address] [facility] Cardiology Comment on above: REG Start: 05-27-2024 Medicare Annual Well ness Visit Medicare Annual Wellness Visit (AWV) [facility] Start: 05-16-2024 Advance Directive Discussion Advance Directive Discussion [facility] Start: 05-10-2024 End: 05-10-2024 ambulatory 05/10/2024 8:15 AM EST Results Only Cardiology [address] [place] [address] Dx: Atherosclerotic heart disease of [place] coronary artery without angina pectoris Cardiology Comment on above: Dx: Atherosclerotic heart disease of [place] coronary artery without angina pectoris Start: 05-10-2024 End: 05-10-2024 Patient encounter procedure Cardiology Comment on above: Dx: Atherosclerotic heart disease of [place] coronary artery without angina pectoris Start: 03-15-2024 End: 03-15-2024 Patient encounter procedure 03/15/2024 9:40 AM EDT Office Visit [facility] [address] [place] [phone] Renny Christopher DO [address] [place] [address] [facility] Start: 01-18-2024 Referral to roll grinder [facility] Start: 01-18-2024 End: 01-18-2024 [facility] Start: 01-17-2024 [facility] Start: 01-17-2024 Hospital admission [facility] Start: 01-17-2024 Physical therapy procedure [facility] Start: 01-17-2024 Referral to occupati onal therapist [facility] Start: 01-17-2024 Referral to roll grinder [facility] Start: 01-17-2024 [facility] Start: 01-15-2024 Covid-19 Vaccine ( season) Covid-19 Vaccine () [facility] Start: 01-15-2024 Covid-19 Vaccine () Covid-19 Vaccine () [facility] Start: 01-15-2024 COVID-19 Vaccine () COVID-19 Vaccine () [facility] Start: 01-15-2024 Influenza vaccination Influenza Vacc ine (#1) [facility] Start: 09-19-2023 [facility] Start: 09-19-2023 Catheterization of l eft heart CL *Left Heart Cath (LHC) (Not Applicable) [facility] Start: 09-18-2023 End: 09-18-2023 [facility] Start: 09-17-2023 End: 09-18-2023 [facility] Start: 09-17-2023 Physical therapy procedure [facility] Start: 09-17-2023 Referral to occupati onal therapist [facility] Start: 09-17-2023 Hospital admission [facility] Start: 09-17-2023 Referral to roll grinder [facility] Start: 08-23-2023 End: 08-23-2023 Patient encounter procedure 08/23/2023 4:00 PM EDT Office Visit [facility] [address] [place] [phone] [place] [address] [facility] Department [place] [address] [facility] Start: 2023 [facility] Start: 05-23-2023 Diabetes Screening Diabetes Screenin g [facility] Start: 05-16-2023 Advance Directive Discussion Advance Directive Discussion [facility] Start: 01-14-2023 COVID-19 Vaccine ( season) COVID-19 Vaccine ( season) [facility] Start: 01-10-2023 US scan [facility] aorta [facility] Start: 01-10-2023 US Thoracic and abdo sarah aorta [facility] Start: 08-06-2022 FUV, Provider: Mayra Person, Status: Pen, Time: 10:10 AM FUV, Provider: Mayra Person, Status: Pen, Time: 10:10 AM [facility] 250 DO Work Phone: Start: 02-10-2022 FUV, Provider: Mayra Person, Status: Pen, Time: 3:20 PM FUV, Provider: Mayra Person, Status: Pen, Time: 3:20 PM [facility] 250 DO Work Phone: Start: 11-20-2021 FUV, Provider: Mayra Person, Status: Pen, Time: 8:30 AM FUV, Provider: Mayra Person, Status: Pen, Time: 8:30 AM [facility] [address] DO Work Phone: Start: 07-09-2021 Glaucoma screening Diabetes: R etinopathy Screening [facility] Start: 05-23-2021 Thyroid stimulating hormone measurement TSH Level [facility] Start: 02-11-2021 Pneumococcal Vaccine : 65+ Years (2 of 2 - PCV) Pneumococcal Vaccine: 65+ Years (2 of 2 - PCV) [facility] Start: 02-09-2017 Zoster Vaccines (2 of 3) Zoster Vacc maria g (2 of 3) [facility] Start: 08-03-2011 RSV High Risk: (Elde rly (60+) or Population) (1 - 1-dose 75+ series) RSV High Risk: (Elderly (60+) or Population) (1 - 1-dose 75+ series) [facility] Start: 08-03-2011 RSV Vaccine (1 - 1-d ose 75+ series) RSV Vaccine (1 - 1-dose 75+ series) [facility] Start: 2001 Pneumococcal Vaccine : 65+ (1 of 1 - PCV) Pneumococcal Vaccine: 65+ (1 of 1 - PCV) [facility] Start: 1996 RSV patient s and/or patients aged 60+ years (1 - 1-dose 60+ series) RSV patients and/or patients aged 60+ years (1 - 1-dose 60+ series) [facility] Start: 1996 RSV Vaccine (1 - 1-d ose 60+ series) RSV Vaccine (1 - 1-dose 60+ series) [facility] Start: 1986 Shingrix Vaccine (1 of 2) Vanegas grix Vaccine (1 of 2) [facility] Start: 1981 Diabetes Screening Diabetes Screenin g [facility] Start: 08-03-1955 Urine microalbumin profile DTaP,Tdap,Td Vaccine (1 - Tdap) [facility] Start: 08-03-1955 Urine screening for protein Diabetes: Urine Protein Screening [facility] Start: 1954 Anxiety Screening Anxiety Screening [facility] Start: 1954 Depression Screening Depression Scre ening [facility] Start: 1946 Diabetic foot examination Diabetes: Foot Exam [facility] Start: 1936 Hemoglobin A1c measurement Diabetes: Hemoglobin A1C [facility] Start: 1936 Lipid panel Lipid Panel [facility] Start: 1936 Medicare Annual Well ness Visit Medicare Annual Wellness Visit (AWV) [facility] Start: 1936 Urine screening for protein Diabetes: Urine Protein Screening [facility] Comprehensive metabo lic 1999 panel - Serum or Plasma [facility] Comprehensive metabo lic 1999 panel - Serum or Plasma [facility] Comprehensive metabo lic 1999 panel - Serum or Plasma [facility] Comprehensive metabo lic 1999 panel - Serum or Plasma [facility] End: 01-24-2025 ECG COMPLETE ECG COMPLETE ECG Routine Atherosclerosis of [place] coronary artery of [place] heart without angina pectoris 1 Occurrences starting 01/25/2024 until 01/24/2025 [facility] Work Phone: Comment on above: 1 Occurrences starti ng 01/25/2024 until 01/24/2025 Glucose measurement estimated from glycated hemoglobin [facility] Work Phone: Glucose measurement estimated from glycated hemoglobin [facility] Glucose measurement estimated from glycated hemoglobin [facility] Glucose measurement estimated from glycated hemoglobin [facility] Hemoglobin A1c/Hemoglobin.total in Blood [facility] Work Phone: Hemoglobin A1c/Hemoglobin.total in Blood [facility] Hemoglobin A1c/Hemoglobin.total in Blood [facility] Hemoglobin A1c/Hemoglobin.total in Blood [facility] Patient Education [facility] Work Phone: Patient referral [facility] Work Phone: US Thoracic and abdo sarah aorta [facility] US Thoracic and abdo sarah aorta [facility] Immunizations Immunization Date Immunization Notes Care Provider Fa lucas 05-07-2024 COVID-19 (PFIZER) 12Y and older Justice Fagans DO Work Phone: [facility] 05-07-2024 COVID-19 Comirnaty (Pfizer) Tri-Sucrose 12+ [facility] 03-02-2024 influenza, high dose seasonal, preservative-free Justicesuly Fagans DO Work Phone: [facility] 03-02-2024 influenza virus vaccine, unspecified formulation Renny Christopher DO Work Phone: [facility] Work Phone: 09-28-2023 COVID-19 (PFIZER) 12Y and older DO Justicesuly Fagans Work Phone: [facility] 02-15-2023 Fluzone QIV High-Dose 65YR+ DO Justice Singh Work Phone: [facility] 03-01-2022 Fluzone High-Dose Quadrivalent 0.7 ML Intramuscular Suspension Prefilled Syringe Justice R [employer] Work Phone: [facility] 10-23-2021 Pneumococcal Conjugate Vaccine, 20 valent Justice Singh DO Work Phone: [facility] 03-31-2021 Pfizer-BioNTech COVID-19 Vacc 30 MCG/0.3ML Intramuscular Suspension Justice Wilton [employer] Work Phone: [facility] 02-24-2021 influenza virus vaccine, unspecified formulation DO Justice [employer] Work Phone: [facility] 02-24-2021 influenza, high dose seasonal, preservative-free Justice Palkion Other [facility] 09-13-2020 SARS-CoV-2 (COVID-19) mRNA-[id number] vaccine Tristan [employer] [facility] 09-11-2020 Pfizer-BioNTech COVID-19 Vacc 30 MCG/0.3ML Intramuscular Suspension Justice Wilton Palkion Work Phone: [facility] 08-20-2020 Pfizer-BioNTech COVID-19 Vacc 30 MCG/0.3ML Intramuscular Suspension [employer] Work Phone: [facility] 08-14-2020 SARS-CoV-2 (COVID-19) mRNA-[id number] vaccine Tristan [employer] [facility] 04-28-2020 influenza virus vaccine, unspecified formulation Tristan [employer] [facility] 02-12-2020 Fluzone High-Dose Quadrivalent 0.7 ML Intramuscular Suspension Prefilled Syringe Justice R Kuns Work Phone: [facility] 02-12-2020 influenza virus vaccine, unspecified formulation DO Justice Kuns Work Phone: [facility] 02-12-2020 pneumococcal polysaccharide vaccine, 23 valent Justice R Kuns Work Phone: [facility] 02-12-2020 tetanus toxoid, reduced diphtheria toxoid, and acellular pertussis vaccine, adsorbed Justice R Kuns Work Phone: [facility] 02-12-2020 influenza, high dose seasonal, preservative-free Justice Kuns Other [facility] [employer] Other 01-08-2020 pneumococcal polysaccharide vaccine, 23 valent Justice Kuns DO Work Phone: [facility] 01-08-2020 tetanus toxoid, reduced diphtheria toxoid, and acellular pertussis vaccine, adsorbed Justice Kuns DO Work Phone: [facility] 02-26-2019 influenza virus vaccine, live, attenuated, for intranasal use Tristan DUMONT [facility] 02-14-2019 influenza, high dose seasonal, preservative-free Justice R Kuns Work Phone: [facility] 12-04-2018 zoster vaccine recombinant Justice Kuns DO Work Phone: [facility] 09-05-2018 zoster vaccine recombinant Justice Kuns DO Work Phone: [facility] 03-10-2018 influenza, seasonal, injectable Justice R Kuns Work Phone: [facility] 05-02-2017 influenza, seasonal, injectable Justice R Kuns Work Phone: [facility] 04-14-2017 influenza, high dose seasonal, preservative-free DO Justice Kuns Work Phone: [facility] 12-15-2016 zoster vaccine, live Justice R Kuns Work Phone: [facility] 05-16-2016 pneumococcal conjugate vaccine, 13 valent Justice R Kuns Work Phone: [facility] [employer] DO Work Phone: 01-14-2011 influenza virus vaccine, unspecified formulation Justice R Kuns Work Phone: [email or web address] DO Work Phone: 04-15-2009 pneumococcal polysaccharide vaccine, 23 valent Justice R Kuns Work Phone: [facility] [employer] [place] [employer] DO Work Phone: influenza virus vaccine, unspecified formulation Justice R Kuns Work Phone: [email or web address] DO Work Phone: Comment on above: 2009 2006 NEGATED: Highlighted row has not occurred! 0 influenza, high dose seasonal, preservative-free Justice Kuns Other [facility] Other NEGATED: Highlighted row has not occurred! 6 influenza, seasonal, injectable Patient Objection Justice Kuns Other [facility] NEGATED: Highlighted row has not occurred! 6 pneumococcal polysaccharide vaccine, 23 valent Patient Objection Justice Kuns Other [facility] Payers Date Payer Category Payer Self-pay [id number] 2022 Private Health Insurance [facility] [id number] 2010 Miscellaneous or Other [facility] [id number] 2010 Unknown 2010 Unknown [id number] [id number] 2010 Unknown [id number] 2004 Medicare [id number]..[id number] 2001 Medicare [id number]. 1.13.647. [id number] 2001 Medicare [id number] 2.16.840.1.423895.19 1936 Unknown [id number] 2.16840.1.079373.3.579. 2.1068 1936 Unknown [id number] 2.16840.1.501609.3.579. 2.356 1936 Unknown [id number] 2.16840.1.571459.3.579. 2.356 1936 Unknown [id number] 2.16.840.1.427434.3.579. 2.1245 1936 Unknown [id number] 2.16.840.1.113757.3.579. 2.1245 1936 Unknown [id number] 2.16.840.1.182699.3.579. 2.1259 1936 Unknown [id number] 2.16.840.1.876670.3.579. 2.1259 1936 Unknown [id number] 2.16.840.1.425351.3.579. 2.125 1936 Unknown [id number] 2.16.840.1.664193.3.579. 2.1259 1936 Unknown [id number] 2.16.840.1.465705.3.579. 2.125 1936 Unknown [id number] 2.16.840.1.130533.3.579. 2.1244 1936 Unknown [id number] 2.16.840.1.615912.3.579. 2.1244 Unknown [id number] 2.16.840.1.388937.3.579. 2.531 Unknown [id number] 2.16.840.1.677896.3.579. 2.531 Unknown [id number] 2.16.840.1.427443.3.579. 2.531 Unknown [id number] 2.16.840.1.140874.3.579. 2.531 Unknown [id number] 2.16.840.1.500180.3.579. 2.531 Unknown [id number] 2.16.840.1.131052.3.579. 2.531 Social History Date Type Detail Facility Start: 08-23-2023 End: 03-15-2024 No alcohol use No alcohol use [place] [address] DO Work Phone: Comment on above: Quit 1961; Start: 08-23-2023 End: 03-15-2024 Sex Assigned At [employer] Other Start: 11-24-2020 End: 02-08-2025 Ex-smoker (finding) [facility] Work Phone: Start: 1935 Sex Assigned At Male F [facility] Start: 05-31-2022 End: 05-31-2022 Tobacco smoking status NHIS Never smoked tobacco (finding) [facility] Tobacco smoking status [facility] Tobacco smoking consumption unknown [facility] Work Phone: Start: 1935 Sex Assigned At Not on file [facility] Work Phone: History of tobacco use Current smoker [facility] Work Phone: History of tobacco use Cigarette Smoker [facility] Work Phone: History of tobacco use Passive smoker [facility] Work Phone: Start: 08-23-2023 End: 06-11-2024 Tobacco use and exposure Smokeless tobacco non-user [facility] Work Phone: Start: 08-23-2023 End: 11-13-2024 Alcoholic beverage intake Ex-drinker (finding) [facility] Work Phone: Start: 08-13-2023 End: 03-15-2024 Exposure to SARS-CoV-2 (event) Not sure [facility] Start: 04-05-2024 End: 10-16-2024 Sex Male (finding) [facility] National Score (1-100), lower number is lower risk 74 [facility] Start: 06-11-2024 Tobacco Comment Quit smoking i n 8. Smoked 22 years. [facility] Medical Equipment Procedure Code Equipment Code Equipment Origin al Text Equipment Identifier Dates AAA repair with graft ENDOLOGIX PROX ENDOGRAF [id number] FDA Start: 04-13-2017 AAA repair with graft ENDOLOGIX PROX ENDOGRAF [id number] FDA Start: 04-13-2017 AAA repair with graft ENDOLOGIX PROX ENDOGRAF [id number] FDA Start: 04-13-2017 AAA repair with graft ENDOLOGIX PROX ENDOGRAF [id number] FDA Start: 04-13-2017 AAA repair with graft ENDOLOGIX PROX ENDOGRAF [id number] FDA Start: 04-13-2017 AAA repair with graft ENDOLOGIX PROX ENDOGRAF [id number] FDA Start: 04-13-2017 AAA repair with graft ENDOLOGIX PROX ENDOGRAF [id number] FDA Start: 04-13-2017 AAA repair with graft ENDOLOGIX PROX ENDOGRAF [id number] FDA Start: 04-13-2017 AAA repair with graft ENDOLOGIX PROX ENDOGRAF [id number] FDA Start: 04-13-2017 AAA repair with graft ENDOLOGIX PROX ENDOGRAF [id number] FDA Start: 04-13-2017 AAA repair with graft ENDOLOGIX PROX ENDOGRAF [id number] FDA Start: 04-13-2017 AAA repair with graft ENDOLOGIX PROX ENDOGRAF [id number] FDA Start: 04-13-2017 AAA repair with graft ENDOLOGIX PROX ENDOGRAF [id number] FDA Start: 04-13-2017 AAA repair with graft ENDOLOGIX PROX ENDOGRAF [id number] FDA Start: 04-13-2017 AAA repair with graft ENDOLOGIX PROX ENDOGRAF [id number] FDA Start: 04-13-2017 AAA repair with graft ENDOLOGIX PROX ENDOGRAF [id number] FDA Start: 04-13-2017 AAA repair with graft ENDOLOGIX PROX ENDOGRAF [id number] FDA Start: 04-13-2017 AAA repair with graft ENDOLOGIX PROX ENDOGRAF [id number] FDA Start: 04-13-2017 AAA repair with graft ENDOLOGIX PROX ENDOGRAF [id number] FDA Start: 04-13-2017 AAA repair with graft ENDOLOGIX PROX ENDOGRAF [id number] FDA Start: 04-13-2017 AAA repair with graft ENDOLOGIX PROX ENDOGRAF [id number] FDA Start: 04-13-2017 AAA repair with graft ENDOLOGIX PROX ENDOGRAF [id number] FDA Start: 04-13-2017 AAA repair with graft ENDOLOGIX PROX ENDOGRAF [id number] FDA Start: 04-13-2017 AAA repair with graft ENDOLOGIX PROX ENDOGRAF 80X34 FDA Start: 04-13-2017 AAA repair with graft ENDOLOGIX PROX ENDOGRAF [id number] FDA Start: 04-13-2017 AAA repair with graft ENDOLOGIX PROX ENDOGRAF 80X34 FDA Start: 04-13-2017 AAA repair with graft ENDOLOGIX PROX ENDOGRAF 100X34 FDA Start: 04-13-2017 AAA repair with graft ENDOLOGIX PROX ENDOGRAF 80X34 FDA Start: 04-13-2017 AAA repair with graft ENDOLOGIX PROX ENDOGRAF 100X34 FDA Start: 04-13-2017 AAA repair with graft ENDOLOGIX PROX ENDOGRAF 80X34 FDA Start: 04-13-2017 AAA repair with graft ENDOLOGIX PROX ENDOGRAF 100X34 FDA Start: 04-13-2017 AAA repair with graft ENDOLOGIX PROX ENDOGRAF 80X34 FDA Start: 04-13-2017 AAA repair with graft ENDOLOGIX PROX ENDOGRAF [id number] FDA Start: 04-13-2017 AAA repair with graft ENDOLOGIX PROX ENDOGRAF 80X34 FDA Start: 04-13-2017 AAA repair with graft ENDOLOGIX PROX ENDOGRAF 100X34 FDA Start: 04-13-2017 AAA repair with graft ENDOLOGIX PROX ENDOGRAF 80X34 FDA Start: 04-13-2017 AAA repair with graft ENDOLOGIX PROX ENDOGRAF 100X34 FDA Start: 04-13-2017 AAA repair with graft ENDOLOGIX PROX ENDOGRAF 80X34 FDA Start: 04-13-2017 AAA repair with graft ENDOLOGIX PROX ENDOGRAF 100X34 FDA Start: 04-13-2017 AAA repair with graft ENDOLOGIX PROX ENDOGRAF 80X34 FDA Start: 04-13-2017 AAA repair with graft ENDOLOGIX PROX ENDOGRAF 100X34 FDA Start: 04-13-2017 AAA repair with graft ENDOLOGIX PROX ENDOGRAF 80X34 FDA Start: 04-13-2017 AAA repair with graft ENDOLOGIX PROX ENDOGRAF 100X34 FDA Start: 04-13-2017 AAA repair with graft ENDOLOGIX PROX ENDOGRAF 80X34 FDA Start: 04-13-2017 AAA repair with graft ENDOLOGIX PROX ENDOGRAF 100X34 FDA Start: 04-13-2017 AAA repair with graft ENDOLOGIX PROX ENDOGRAF 80X34 FDA Start: 04-13-2017 AAA repair with graft ENDOLOGIX PROX ENDOGRAF 100X34 FDA Start: 04-13-2017 AAA repair with graft ENDOLOGIX PROX ENDOGRAF 80X34 FDA Start: 04-13-2017 AAA repair with graft ENDOLOGIX PROX ENDOGRAF 100X34 FDA Start: 04-13-2017 AAA repair with graft ENDOLOGIX PROX ENDOGRAF 80X34 FDA Start: 04-13-2017 AAA repair with graft ENDOLOGIX PROX ENDOGRAF 100X34 FDA Start: 04-13-2017 AAA repair with graft ENDOLOGIX PROX ENDOGRAF 80X34 FDA Start: 04-13-2017 AAA repair with graft ENDOLOGIX PROX ENDOGRAF 100X34 FDA Start: 04-13-2017 AAA repair with graft ENDOLOGIX PROX ENDOGRAF 80X34 FDA Start: 04-13-2017 AAA repair with graft ENDOLOGIX PROX ENDOGRAF 100X34 FDA Start: 04-13-2017 AAA repair with graft ENDOLOGIX PROX ENDOGRAF 80X34 FDA Start: 04-13-2017 AAA repair with graft ENDOLOGIX PROX ENDOGRAF 100X34 FDA Start: 04-13-2017 AAA repair with graft ENDOLOGIX PROX ENDOGRAF 80X34 FDA Start: 04-13-2017 AAA repair with graft ENDOLOGIX PROX ENDOGRAF 100X34 FDA Start: 04-13-2017 AAA repair with graft ENDOLOGIX PROX ENDOGRAF 80X34 FDA Start: 04-13-2017 AAA repair with graft ENDOLOGIX PROX ENDOGRAF 100X34 FDA Start: 04-13-2017 AAA repair with graft ENDOLOGIX PROX ENDOGRAF 80X34 FDA Start: 04-13-2017 AAA repair with graft ENDOLOGIX PROX ENDOGRAF 100X34 FDA Start: 04-13-2017 AAA repair with graft ENDOLOGIX PROX ENDOGRAF 80X34 FDA Start: 04-13-2017 AAA repair with graft ENDOLOGIX PROX ENDOGRAF 100X34 FDA Start: 04-13-2017 AAA repair with graft ENDOLOGIX PROX ENDOGRAF 80X34 FDA Start: 04-13-2017 AAA repair with graft ENDOLOGIX PROX ENDOGRAF 100X34 FDA Start: 04-13-2017 AAA repair with graft ENDOLOGIX PROX ENDOGRAF 80X34 FDA Start: 04-13-2017 AAA repair with graft ENDOLOGIX PROX ENDOGRAF 100X34 FDA Start: 04-13-2017 AAA repair with graft ENDOLOGIX PROX ENDOGRAF 80X34 FDA Start: 04-13-2017 AAA repair with graft ENDOLOGIX PROX ENDOGRAF 100X34 FDA Start: 04-13-2017 AAA repair with graft ENDOLOGIX PROX ENDOGRAF 80X34 FDA Start: 04-13-2017 AAA repair with graft ENDOLOGIX PROX ENDOGRAF 100X34 FDA Start: 04-13-2017 AAA repair with graft ENDOLOGIX PROX ENDOGRAF 80X34 FDA Start: 04-13-2017 AAA repair with graft ENDOLOGIX PROX ENDOGRAF 100X34 FDA Start: 04-13-2017 AAA repair with graft ENDOLOGIX PROX ENDOGRAF 80X34 FDA Start: 04-13-2017 AAA repair with graft ENDOLOGIX PROX ENDOGRAF 100X34 FDA Start: 04-13-2017 AAA repair with graft ENDOLOGIX PROX ENDOGRAF 80X34 FDA Start: 04-13-2017 AAA repair with graft ENDOLOGIX PROX ENDOGRAF 100X34 FDA Start: 04-13-2017 AAA repair with graft ENDOLOGIX PROX ENDOGRAF 80X34 FDA Start: 04-13-2017 Blood Sugar Diagnostic (True Metrix Glucose Test Strip) strip Start: 04-17-2024 Blood Sugar Diagnostic (True Metrix Glucose Test Strip) strip Start: 04-17-2024 Blood Sugar Diagnostic (True Metrix Glucose Test Strip) strip Start: 04-17-2024 Blood Sugar Diagnostic (True Metrix Glucose Test Strip) strip Start: 04-17-2024 Blood Sugar Diagnostic (True Metrix Glucose Test Strip) strip Start: 04-17-2024 Blood Sugar Diagnostic (True Metrix Glucose Test Strip) strip Start: 04-17-2024 Blood Sugar Diagnostic (True Metrix Glucose Test Strip) strip Start: 04-17-2024 Blood Sugar Diagnostic (True Metrix Glucose Test Strip) strip Start: 04-17-2024 Blood Sugar Diagnostic (True Metrix Glucose Test Strip) strip Start: 04-17-2024 Blood Sugar Diagnostic (True Metrix Glucose Test Strip) strip Start: 04-17-2024 Blood Sugar Diagnostic (True Metrix Glucose Test Strip) strip Start: 04-17-2024 Blood Sugar Diagnostic (True Metrix Glucose Test Strip) strip Start: 04-17-2024 Blood Sugar Diagnostic (True Metrix Glucose Test Strip) strip Start: 04-17-2024 Blood Sugar Diagnostic (True Metrix Glucose Test Strip) strip Start: 04-17-2024 Goals Date Patient Goal Desired Activity /State Personal health goal Functional Status Date Assessment Result Facility 02-06-2025 Functional status Patient Not at Baseline [facility] Work Phone: 01-17-2024 Functional status Patient at Baseline [facility] Work Phone: 09-19-2023 Functional status Patient at Baseline [facility] Work Phone: 12-28-2021 N/A [facility] Mental Status Date Assessment Result Facility 02-06-2025 Cognitive function Cognitive Sta tus Patient at Baseline [facility] Work Phone: 01-17-2024 Cognitive function Cognitive Sta tus Patient at Baseline [facility] Work Phone: 09-19-2023 Cognitive function Cognitive Sta tus Patient at Baseline [facility] Work Phone: Clinical Notes 08-09-2013 to 02-06-2025 Note Date & Type Note Facility 02-06-2025 History and physi zeferino note Note Date/Time February 06, 2025 5:13pm [facility] [address] [place] [address] Hospitalist H&P Signed Patient: Ever Mason MR#: [id number] : 1935 Acct:[id number] Age/Sex: 89 / M Adm Date: 5 Loc: Room: [address] [place] [address] Type: ADM IN Attending Dr: Jg Olvera MD Copies to: MD Justice Velez,DO~ HPI DATE OF EXAMINATION: 02/06/25 HISTORY OF PRESENT ILLNESS: Patient is an 89-year-old male, who comes today to the emergency department feeling unwell for about 3 weeks or so. He feels lightheaded upon standing, he is short of breath with exertion, he is tired. His appetite is decreased, he lost about 10 pounds over the last couple of weeks. No orthopnea PND leg swelling reported. Today the cleaning lady was leaving the house, he went down to say goodbye to her, at which time he became very short of breath, sweaty, looked very unwell. She got concerned and called her daughter who is a nurse. Patient was brought to ED for evaluation. Patient did not experience any chest pain or pressure at any time. Past medical history Severe CAD, not a candidate for revascularization per [facility]. 6 stents. Diabetes type 2 Hypothyroidism Abdominal arctic aneurysm CKD stage IIIb Asthma History of DVT GERD 10 point review of systems negative except noted Physical exam Patient seen in the emergency room Patient appears comfortable, in no distress. Skin is normally colored, no icterus, cyanosis or edema noted. Capillary refill is normal. Joints are without any effusion. Abdomen is soft, benign, no rebound or rigidity. No organomegaly. Bowel sounds present. Heart regular, no gallop, rub or JVD. There is a 2/6 systolic murmur best audible along the left sternal border and at the apex. Peripheral pulses present bilaterally. [id number] ultrasound with relatively poor windows no major abnormalities noted. Central venous pressure is decreased estimated approximately 6 to 7 cm of water in bilateral jugular veins. IVC could not be visualized. Lungs are clear to auscultation, no rales, ronchi or wheezes. HENT normal Neurological: Patient is awake. Cognition is normal. Cranial nerves are intact. Power is symmetric all extremities, with no focal motor deficit identified on a cursory exam. Psych: affect is normal. EKG labs imaging reviewed Assessment and plan 1.Intravascular volume depletion, dehydration. Decreased oral intake. Indeed he is 72 kg now, his weight had been 76 kg. Mild REINA on CKD stage IIIb Gentle IV fluid resuscitation 2. Unstable angina. Possible non-STEMI. Troponin is elevated. Patient did have some unusual symptoms earlier today. Admit to the hospital. Recheck serial troponins. Telemetry. Continue aspirin. Administer 1 dose of Lovenox 1 mg/kg. Cardiology evaluation in AM. Due to systolic murmur that sounds to be mitral regurgitation (not mentioned by cardiology consult September of this year), will obtain an echocardiogram. The last 1 done approximately 1 year and a half ago indicated mild AR and mild MR. EF was normal. Chronic problems Severe CAD, not a candidate for revascularization per [facility]. 6 stents. Diabetes type 2 Hypothyroidism Abdominal arctic aneurysm, status post repair CKD stage IIIb Asthma History of DVT GERD [facility] Medical History (Updated 02/06/25 @ 15:50 by Merlin Escobar DO) Trochanteric bursitis Abnormal cardiovascular stress test 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 Renal insufficiency Asthma Myocardial infarction Lumbar back pain with radiculopathy affecting right lower extremity Hypothyroidism GERD (gastroesophageal reflux disease) DVT (deep venous thrombosis) DDD (degenerative disc disease), lumbar BPH (benign prostatic hyperplasia) Arthritis Anemia Acute encephalopathy Pneumonia due to COVID-19 virus 2019 Acute confusion Acute dehydration Chest wall contusion Former smoker quit 1957 Diabetes type 2 Angina at rest Abdominal aneurysm Overweight Orthostatic hypotension Hypertension Hyperlipidemia AAA (abdominal aortic aneurysm) Surgical History History of cardiac catheterization History of bladder repair surgery Hx of heart artery stent x6 Hx of tonsillectomy Hx of hand surgery right hand Hx of colonoscopy Family History Brother 80 yrs Father Diabetes 65 yrs Heart disease Mother 78 yrs Heart disease Social History Smoking Status: Former smoker Tobacco Type: cigarettes Substance Use Type: None Meds Medications and Allergies Allergies sitagliptin (Januvia) Allergy (Unknown, Verified 02/06/25 11:59) constipation / ineffective Home Medications aspirin 81 mg tablet,delayed release 1 tab PO QAM 04/06/17 [History Confirmed 02/01/25] levothyroxine 50 mcg capsule 50 mcg PO QAM 07/11/23 [History Confirmed 02/01/25] multivitamin 1 tab PO QAM 07/12/23 [History Confirmed 02/01/25] vit C 250 mg-vit E 90 mg-zinc 40 mg-copper 1 ed-brqtmz-kvxexf capsule (PreserVision AREDS-2) 1 tab PO QAM 07/29/23 [History Confirmed 02/01/25] carvedilol 3.125 mg tablet 3.125 mg PO BID 10/06/23 [History Confirmed 02/01/25] nitroglycerin 0.4 mg sublingual tablet (Nitrostat) 0.4 mg sublingual Q5-15M PRN Chest Pain 30 days #25 tabs 10/06/23 [Rx Confirmed 02/01/25] blood sugar diagnostic (True Metrix Glucose Test Strip) #10 ea 12/03/24 [History Confirmed 11/15/24] ranolazine 500 mg tablet,extended release,12 hr 500 mg PO BID 06/12/24 [History Confirmed 02/01/25] lisinopril 5 mg tablet 5 mg PO QAM 07/19/24 [History Confirmed 02/01/25] glipizide 5 mg tablet, extended release 24 hr 5 mg PO QPM #90 tabs 12/03/24 [Rx Confirmed 02/01/25] montelukast 10 mg tablet (Singulair) 10 mg PO QPM #90 tabs 12/03/24 [Rx Confirmed 02/01/25] atorvastatin 40 mg tablet 40 mg PO QHS 02/01/25 [History Confirmed 02/01/25] isosorbide mononitrate 60 mg tablet,extended release 24 hr 60 mg PO QAM 02/01/25[History Confirmed 02/01/25] magnesium chloride 71.5 mg (magnesium chloride) tablet,delayed release (Slow-Mag) 71.5 mg PO BID 02/01/25 [History Confirmed 02/01/25] metformin 500 mg tablet 500 mg PO QAM 02/01/25 [History Confirmed 02/01/25] Exam Physical Exam Vital Signs: Temp Pulse Resp BP Pulse Ox O2 Del Method 97.4 F L 60 18 125/75 100 Room Air 02/06/25 12:02 02/06/25 15:25 02/06/25 15:25 02/06/25 15:25 02/06/25 15:25 02/06/25 15:25 Results - Hospitalist H&P Lab Results Labs: Laboratory Last Values Corrected WBC 6.5 X10E3/uL (4.1-10.5) 02/06/25 13:20 Uncorrected WBC Count 6.5 x10E3/uL (4.1-10.5) 02/06/25 13:20 RBC 3.38 x10E6/uL (3.90-5.60) L 02/06/25 13:20 Hgb 11.1 g/dL (13.0-17.0) L 02/06/25 13:20 Hct 32.3 % (38.8-50.0) L 02/06/25 13:20 MCV 95.8 fl (83.5-101) 02/06/25 13:20 MCH 32.9 pg (27.5-35.2) 02/06/25 13:20 MCHC 34.4 g/dL (32.5-35.6) 02/06/25 13:20 RDW 13.0 % (12.0-14.8) 02/06/25 13:20 Plt Count 137 x10E3/uL (150-450) L 02/06/25 13:20 MPV 8.9 fl (6.6-10.1) 02/06/25 13:20 Neut % (Auto) 74.9 % (.) 02/06/25 13:20 Lymph % (Auto) 13.0 % (.) 02/06/25 13:20 [place] % (Auto) 10.7 % (.) 02/06/25 13:20 Eos % (Auto) 0.9 % (.) 02/06/25 13:20 Baso % (Auto) 0.5 % (.) 02/06/25 13:20 Nucleat RBC Rel Count 0.0 /100 WBC (0-0.5) 02/06/25 13:20 Neut # (Auto) 4.8 x10E3/uL (1.8-7.7) 02/06/25 13:20 Lymph # (Auto) 0.8 x10E3/uL (1.00-4.8) L 02/06/25 13:20 [place] # (Auto) 0.7 x10E3/uL (0.0-0.8) 02/06/25 13:20 Eos # (Auto) 0.1 x10E3/uL (0.0-0.45) 02/06/25 13:20 Baso # (Auto) 0.0 x10E3/uL (0.0-0.2) 02/06/25 13:20 Monocyte Dist Width 18.31 % (0.00-20.00) 02/06/25 13:20 PT 12.2 Seconds (9.0-12.9) 02/06/25 13:20 INR 1.1 02/06/25 13:20 APTT 26.2 Seconds (25.1-36.5) 02/06/25 13:20 PHA Creatinine Clear 27.60 02/06/25 13:20 Sodium 136 mmol/L (136-145) 02/06/25 13:20 Potassium 4.9 mmol/L (3.5-5.1) 02/06/25 13:20 Chloride 108 mmol/L (98-107) H 02/06/25 13:20 Carbon Dioxide 23.3 mmol/L (21.0-31.0) 02/06/25 13:20 Anion Gap 9.6 mEq/L (6.0-15.0) 02/06/25 13:20 BUN 47 mg/dL (7-25) H 02/06/25 13:20 Creatinine 1.85 mg/dL (0.70-1.30) H 02/06/25 13:20 Est GFR (CKD-EPI) 34.601 mL/Min 02/06/25 13:20 Glucose 226 mg/dL (70-100) H 02/06/25 13:20 Calcium 9.0 mg/dL (8.6-10.3) 02/06/25 13:20 Magnesium 1.8 mg/dL (1.9-2.7) L 02/06/25 13:20 Total Bilirubin 0.5 mg/dl (0.3-1.0) 02/06/25 13:20 AST 20 U/L (13-39) 02/06/25 13:20 ALT 18 U/L (7-52) 02/06/25 13:20 Alkaline Phosphatase 82 U/L (34-104) 02/06/25 13:20 Total Creatine Kinase 146 U/L (30-223) 02/06/25 13:20 Troponin I High Sens 650 ng/L (0-20) H* 02/06/25 13:20 B-Natriuretic Peptide 144.0 pg/mL (5-100) H 02/06/25 13:20 Total Protein 5.8 gm/dL (6.4-8.9) L 02/06/25 13:20 Albumin 3.6 gm/dL (3.5-5.7) 02/06/25 13:20 Globulin 2.2 gm/dL 02/06/25 13:20 Albumin/Globulin Ratio 1.6 02/06/25 13:20 Urine Color Yellow (Yellow) 02/06/25 15:28 Urine Appearance Clear (Clear) 02/06/25 15:28 Urine pH 5.0 (5.0-9.0) 02/06/25 15:28 Ur Specific [place] 1.018 (1.001-1.030) 02/06/25 15:28 Urine Protein Negative mg/dL (Negative) 02/06/25 15:28 Urine Glucose (UA) Normal mg/dL (Normal) 02/06/25 15:28 Urine Ketones Negative (Negative) 02/06/25 15:28 Urine Occult Blood Negative (Negative) 02/06/25 15:28 Urine Nitrite Negative (Negative) 02/06/25 15:28 Urine Bilirubin Negative (Negative) 02/06/25 15:28 Urine Urobilinogen Normal mg/dL (Normal) 02/06/25 15:28 Ur Leukocyte Esterase 1+ (Negative) H 02/06/25 15:28 Urine RBC 1-2 /HPF (0-4) 02/06/25 15:28 Urine WBC 3-4 /HPF (0-4) 02/06/25 15:28 Ur Squamous Epith Cells 1-2 /HPF (0-2) 02/06/25 15:28 Urine Bacteria None seen /HPF (None Seen) 02/06/25 15:28 Hyaline Casts 9-19 /LPF (0-8) H 02/06/25 15:28 Urine Mucus 1+ /LPF A 02/06/25 15:28 Microbiology Results Micro: Microbiology - Results from entire visit 02/06/25 13:00 Stool Stool Occult Blood (RONI) - Final Assessment & Plan Assessment/Plan (1) Dyspnea: Plan . IP vs OBS Justification Based on differential dx, clinical care plan, and risk of adverse events, if untreated, in my clinical judgement this patient requires an acute care setting as: INPATIENT because of an expectation of an over 2 midnight stay. Estimated length of stay (# of days): 3 Documented By: Jg Olvera MD 02/06/251711 Signed By: <Electronically signed by Jg Olvera MD> 02/06/251712 [facility] Work Phone: 1(455) 451-962209-24-2025 History and physical note Author Jg Olvera [facility] Note Date/Time February 06, 2025 5:11pm [facility] [address] [place] [address] Hospitalist H&P Signed Patient: Ever Mason MR#: [id number] : 1935 Acct:[id number] Age/Sex: 89 / M Adm Date: 5 Loc: 4P Room: [address] [place] [address] Type: ADM IN Attending Dr: Jg Olvera MD Copies to: MD Justice Velez,DO~ HPI DATE OF EXAMINATION: 02/06/25 HISTORY OF PRESENT ILLNESS: Patient is an 89-year-old male, who comes today to the emergency department feeling unwell for about 3 weeks or so. He feels lightheaded upon standing, he is short of breath with exertion, he is tired. His appetite is decreased, he lost about 10 pounds over the last couple of weeks. No orthopnea PND leg swelling reported. Today the cleaning lady was leaving the house, he went down to say goodbye to her, at which time he became very short of breath, sweaty, looked very unwell. She got concerned and called her daughter who is a nurse. Patient was brought to ED for evaluation. Patient did not experience any chest pain or pressure at any time. Past medical history Severe CAD, not a candidate for revascularization per [facility]. 6 stents. Diabetes type 2 Hypothyroidism Abdominal arctic aneurysm CKD stage IIIb Asthma History of DVT GERD 10 point review of systems negative except noted Physical exam Patient seen in the emergency room Patient appears comfortable, in no distress. Skin is normally colored, no icterus, cyanosis or edema noted. Capillary refill is normal. Joints are without any effusion. Abdomen is soft, benign, no rebound or rigidity. No organomegaly. Bowel sounds present. Heart regular, no gallop, rub or JVD. There is a 2/6 systolic murmur best audible along the left sternal border and at the apex. Peripheral pulses present bilaterally. [id number] ultrasound with relatively poor windows no major abnormalities noted. Central venous pressure is decreased estimated approximately 6 to 7 cm of water in bilateral jugular veins. IVC could not be visualized. Lungs are clear to auscultation, no rales, ronchi or wheezes. HENT normal Neurological: Patient is awake. Cognition is normal. Cranial nerves are intact. Power is symmetric all extremities, with no focal motor deficit identified on a cursory exam. Psych: affect is normal. EKG labs imaging reviewed Assessment and plan 1.Intravascular volume depletion, dehydration Mild REINA on CKD stage IIIb Gentle IV fluid resuscitation 2. Unstable angina. Possible non-STEMI. Troponin is elevated. Patient did have some unusual symptoms earlier today. Admit to the hospital. Recheck serial troponins. Telemetry. Continue aspirin. Administer 1 dose of Lovenox 1 mg/kg. Cardiology evaluation in AM. Due to systolic murmur that sounds to be mitral regurgitation (not mentioned by cardiology consult September of this year), will obtain an echocardiogram. Patient does not have any historical or clinical signs of CHF however. The last 1 done approximately 1 year and a half ago indicated mild AR and mild MR. EF was normal. Chronic problems Severe CAD, not a candidate for revascularization per [facility]. 6 stents. Diabetes type 2 Hypothyroidism Abdominal arctic aneurysm, status post repair CKD stage IIIb Asthma History of DVT GERD [facility] Medical History (Updated 02/06/25 @ 15:50 by Merlin Escobar DO) Trochanteric bursitis Abnormal cardiovascular stress test 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 Renal insufficiency Asthma Myocardial infarction Lumbar back pain with radiculopathy affecting right lower extremity Hypothyroidism GERD (gastroesophageal reflux disease) DVT (deep venous thrombosis) DDD (degenerative disc disease), lumbar BPH (benign prostatic hyperplasia) Arthritis Anemia Acute encephalopathy Pneumonia due to COVID-19 virus 2019 Acute confusion Acute dehydration Chest wall contusion Former smoker quit 1957 Diabetes type 2 Angina at rest Abdominal aneurysm Overweight Orthostatic hypotension Hypertension Hyperlipidemia AAA (abdominal aortic aneurysm) Surgical History History of cardiac catheterization History of bladder repair surgery Hx of heart artery stent x6 Hx of tonsillectomy Hx of hand surgery right hand Hx of colonoscopy Family History Brother 80 yrs Father Diabetes 65 yrs Heart disease Mother 78 yrs Heart disease Social History Smoking Status: Former smoker Tobacco Type: cigarettes Substance Use Type: None Meds Medications and Allergies Allergies sitagliptin (Januvia) Allergy (Unknown, Verified 02/06/25 11:59) constipation / ineffective Home Medications aspirin 81 mg tablet,delayed release 1 tab PO QAM 04/06/17 [History Confirmed 02/01/25] levothyroxine 50 mcg capsule 50 mcg PO QAM 07/11/23 [History Confirmed 02/01/25] multivitamin 1 tab PO QAM 07/12/23 [History Confirmed 02/01/25] vit C 250 mg-vit E 90 mg-zinc 40 mg-copper 1 gw-oifqqt-ecyxfw capsule (PreserVision AREDS-2) 1 tab PO QAM 07/29/23 [History Confirmed 02/01/25] carvedilol 3.125 mg tablet 3.125 mg PO BID 10/06/23 [History Confirmed 02/01/25] nitroglycerin 0.4 mg sublingual tablet (Nitrostat) 0.4 mg sublingual Q5-15M PRN Chest Pain 30 days #25 tabs 10/06/23 [Rx Confirmed 02/01/25] blood sugar diagnostic (True Metrix Glucose Test Strip) #10 ea 04/17/24 [History Confirmed 11/15/24] ranolazine 500 mg tablet,extended release,12 hr 500 mg PO BID 06/12/24 [History Confirmed 02/01/25] lisinopril 5 mg tablet 5 mg PO QAM 07/19/24 [History Confirmed 02/01/25] glipizide 5 mg tablet, extended release 24 hr 5 mg PO QPM #90 tabs 12/03/24 [Rx Confirmed 02/01/25] montelukast 10 mg tablet (Singulair) 10 mg PO QPM #90 tabs 12/03/24 [Rx Confirmed 02/01/25] atorvastatin 40 mg tablet 40 mg PO QHS 02/01/25 [History Confirmed 02/01/25] isosorbide mononitrate 60 mg tablet,extended release 24 hr 60 mg PO QAM 02/01/25[History Confirmed 02/01/25] magnesium chloride 71.5 mg (magnesium chloride) tablet,delayed release (Slow- Mag) 71.5 mg PO BID 02/01/25 [History Confirmed 02/01/25] metformin 500 mg tablet 500 mg PO QAM 02/01/25 [History Confirmed 02/01/25] Exam Physical Exam Vital Signs: Temp Pulse Resp BP Pulse Ox O2 Del Method 97.4 F L 60 18 125/75 100 Room Air 02/06/25 12:02 02/06/25 15:25 02/06/25 15:25 02/06/25 15:25 02/06/25 15:25 02/06/25 15:25 Results - Hospitalist H&P Lab Results Labs: Laboratory Last Values Corrected WBC 6.5 X10E3/uL (4.1-10.5) 02/06/25 13:20 Uncorrected WBC Count 6.5 x10E3/uL (4.1-10.5) 02/06/25 13:20 RBC 3.38 x10E6/uL (3.90-5.60) L 02/06/25 13:20 Hgb 11.1 g/dL (13.0-17.0) L 02/06/25 13:20 Hct 32.3 % (38.8-50.0) L 02/06/25 13:20 MCV 95.8 fl (83.5-101) 02/06/25 13:20 MCH 32.9 pg (27.5-35.2) 02/06/25 13:20 MCHC 34.4 g/dL (32.5-35.6) 02/06/25 13:20 RDW 13.0 % (12.0-14.8) 02/06/25 13:20 Plt Count 137 x10E3/uL (150-450) L 02/06/25 13:20 MPV 8.9 fl (6.6-10.1) 02/06/25 13:20 Neut % (Auto) 74.9 % (.) 02/06/25 13:20 Lymph % (Auto) 13.0 % (.) 02/06/25 13:20 Alger % (Auto) 10.7 % (.) 02/06/25 13:20 Eos % (Auto) 0.9 % (.) 02/06/25 13:20 Baso % (Auto) 0.5 % (.) 02/06/25 13:20 Nucleat RBC Rel Count 0.0 /100 WBC (0-0.5) 02/06/25 13:20 Neut # (Auto) 4.8 x10E3/uL (1.8-7.7) 02/06/25 13:20 Lymph # (Auto) 0.8 x10E3/uL (1.00-4.8) L 02/06/25 13:20 Alger # (Auto) 0.7 x10E3/uL (0.0-0.8) 02/06/25 13:20 Eos # (Auto) 0.1 x10E3/uL (0.0-0.45) 02/06/25 13:20 Baso # (Auto) 0.0 x10E3/uL (0.0-0.2) 02/06/25 13:20 Monocyte Dist Width 18.31 % (0.00-20.00) 02/06/25 13:20 PT 12.2 Seconds (9.0-12.9) 02/06/25 13:20 INR 1.1 02/06/25 13:20 APTT 26.2 Seconds (25.1-36.5) 02/06/25 13:20 PHA Creatinine Clear 27.60 02/06/25 13:20 Sodium 136 mmol/L (136-145) 02/06/25 13:20 Potassium 4.9 mmol/L (3.5-5.1) 02/06/25 13:20 Chloride 108 mmol/L (98-107) H 02/06/25 13:20 Carbon Dioxide 23.3 mmol/L (21.0-31.0) 02/06/25 13:20 Anion Gap 9.6 mEq/L (6.0-15.0) 02/06/25 13:20 BUN 47 mg/dL (7-25) H 02/06/25 13:20 Creatinine 1.85 mg/dL (0.70-1.30) H 02/06/25 13:20 Est GFR (CKD-EPI) 34.601 mL/Min 02/06/25 13:20 Glucose 226 mg/dL (70-100) H 02/06/25 13:20 Calcium 9.0 mg/dL (8.6-10.3) 02/06/25 13:20 Magnesium 1.8 mg/dL (1.9-2.7) L 02/06/25 13:20 Total Bilirubin 0.5 mg/dl (0.3-1.0) 02/06/25 13:20 AST 20 U/L (13-39) 02/06/25 13:20 ALT 18 U/L (7-52) 02/06/25 13:20 Alkaline Phosphatase 82 U/L (34-104) 02/06/25 13:20 Total Creatine Kinase 146 U/L (30-223) 02/06/25 13:20 Troponin I High Sens 650 ng/L (0-20) H* 02/06/25 13:20 B-Natriuretic Peptide 144.0 pg/mL (5-100) H 02/06/25 13:20 Total Protein 5.8 gm/dL (6.4-8.9) L 02/06/25 13:20 Albumin 3.6 gm/dL (3.5-5.7) 02/06/25 13:20 Globulin 2.2 gm/dL 02/06/25 13:20 Albumin/Globulin Ratio 1.6 02/06/25 13:20 Urine Color Yellow (Yellow) 02/06/25 15:28 Urine Appearance Clear (Clear) 02/06/25 15:28 Urine pH 5.0 (5.0-9.0) 02/06/25 15:28 Ur Specific [place] 1.018 (1.001-1.030) 02/06/25 15:28 Urine Protein Negative mg/dL (Negative) 02/06/25 15:28 Urine Glucose (UA) Normal mg/dL (Normal) 02/06/25 15:28 Urine Ketones Negative (Negative) 02/06/25 15:28 Urine Occult Blood Negative (Negative) 02/06/25 15:28 Urine Nitrite Negative (Negative) 02/06/25 15:28 Urine Bilirubin Negative (Negative) 02/06/25 15:28 Urine Urobilinogen Normal mg/dL (Normal) 02/06/25 15:28 Ur Leukocyte Esterase 1+ (Negative) H 02/06/25 15:28 Urine RBC 1-2 /HPF (0-4) 02/06/25 15:28 Urine WBC 3-4 /HPF (0-4) 02/06/25 15:28 Ur Squamous Epith Cells 1-2 /HPF (0-2) 02/06/25 15:28 Urine Bacteria None seen /HPF (None Seen) 02/06/25 15:28 Hyaline Casts 9-19 /LPF (0-8) H 02/06/25 15:28 Urine Mucus 1+ /LPF A 02/06/25 15:28 Microbiology Results Micro: Microbiology - Results from entire visit 02/06/25 13:00 Stool Stool Occult Blood (RONI) - Final Assessment & Plan Assessment/Plan (1) Dyspnea: Plan . IP vs OBS Justification Based on differential dx, clinical care plan, and risk of adverse events, if untreated, in my clinical judgement this patient requires an acute care setting as: INPATIENT because of an expectation of an over 2 midnight stay. Estimated length of stay (# of days): 2 Documented By: Jg Olvera MD 02/06/25 1704 Signed By: <Electronically signed by Jg Olvera MD> 02/06/25 1711 [facility] Work Phone: [phone]) 517-450909-24-2025 Evaluation note* Diagnosis Onset Date Resolution Status Admit Date Dyspnea resolved January 3:28pm Elevated troponin resolved 2024 3:28pm Intravascular volume depletion resolved February 06, 2025 3:28pm Multi-vessel coronary artery stenosis resolved February 06, 2025 3:28pm Weakness resolved January 3:28pm [facility] Work Phone: [phone]) 818-638209-24-2025 [place] [address] Hospitalist H&P Signed Patient: Ever Mason MR#: [id number] : 1935 Acct:[id number] Age/Sex: 89 / M Adm Date: 5 Loc: Room: [address] [place] [address] Type: ADM IN Attending Dr: Jg Olvera MD Copies to: MD Justice Velez,DO~ HPI DATE OF EXAMINATION: 02/06/25 HISTORY OF PRESENT ILLNESS: Patient is an 89-year-old male, who comes today to the emergency department feeling unwell for about 3 weeks or so. He feels lightheaded upon standing, he is short of breath with exertion, he is tired. His appetite is decreased, he lost about 10 pounds over the last couple of weeks. No orthopnea PND leg swelling reported. Today the cleaning lady was leaving the house, he went down to say goodbye to her, at which time he became very short of breath, sweaty, looked very unwell. She got concerned and called her daughter who is a nurse. Patient was brought to ED for evaluation. Patient did not experience any chest pain or pressure at any time. Past medical history Severe CAD, not a candidate for revascularization per [facility]. 6 stents. Diabetes type 2 Hypothyroidism Abdominal arctic aneurysm CKD stage IIIb Asthma History of DVT GERD 10 point review of systems negative except noted Physical exam Patient seen in the emergency room Patient appears comfortable, in no distress. Skin is normally colored, no icterus, cyanosis or edema noted. Capillary refill is normal. Joints are without any effusion. Abdomen is soft, benign, no rebound or rigidity. No organomegaly. Bowel sounds present. Heart regular, no gallop, rub or JVD. There is a 2/6 systolic murmur best audible along the left sternal border and at the apex. Peripheral pulses present bilaterally. Acsmv-ia-xtni ultrasound with relatively poor windows no major abnormalities noted. Central venous pressure is decreased estimated a pproximately 6 to 7 cm of water in bilateral jugular veins. IVC could not be visualized. Lungs are clear to auscultation, no rales, ronchi or wheezes. HENT normal Neurological: Patient is awake. Cognition is normal. Cranial nerves are intact. Power is symmetric all extremities, with no focal motor deficit identified on a cursory exam. Psych: affect is normal. EKG labs imaging reviewed Assessment and plan 1.Intravascular volume depletion, dehydration. Decreased oral intake. Indeed he is 72 kg now, his weight had been 76 kg. Mild REINA on CKD stage IIIb Gentle IV fluid resuscitation 2. Unstable angina. Possible non-STEMI. Troponin is elevated. Patient did have some unusual symptoms earlier today. Admit to the hospital. Recheck serial troponins. Telemetry. Continue aspirin. Administer 1 dose of Lovenox 1 mg/kg. Cardiology evaluation in AM. Due to systolic murmur that sounds to be mitral regurgitation (not mentioned by cardiology consult September of this year), will obtain an echocardiogram. The last 1 done approximately1 year and a half ago indicated mild AR and mild MR. EF was normal. Chronic problems Severe CAD, not a candidate for revascularization per [facility]. 6 stents. Diabetes type 2 Hypothyroidism Abdominal arctic aneurysm, status post repair CKD stage IIIb Asthma History of DVT GERD [facility] Medical History (Updated 02/06/25 @ 15:50 by Merlin Escobar DO) Trochanteric bursitis Abnormal cardiovascular stress test 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 Renal insufficiency Asthma Myocardial infarction Lumbar back pain with radiculopathy affecting right lower extremity Hypothyroidism GERD (gastroesophageal reflux disease) DVT (deep venous thrombosis) DDD (degenerative disc disease), lumbar BPH (benign prostatic hyperplasia) Arthritis Anemia Acute encephalopathy Pneumonia due to COVID-19 virus 2020 Acute confusion Acute dehydration Chest wall contusion Former smoker quit 1957 Diabetes type 2 Angina at rest Abdominal aneurysm Overweight Orthostatic hypotension Hypertension Hyperlipidemia AAA (abdominal aortic aneurysm) Surgical History History of cardiac catheterization History of bladder repair surgery Hx of heart artery stent x6 Hx of tonsillectomy Hx of hand surgery right hand Hx of colonoscopy Family History Brother 80 yrs Father Diabetes 65 yrs Heart disease Mother 78 yrs Heart disease Social History Smoking Status: Former smoker Tobacco Type: cigarettes Substance Use Type: None Meds Medications and Allergies Allergies sitagliptin (Januvia) Allergy (Unknown, Verified 02/06/25 11:59) constipation / ineffective Home Medications aspirin 81 mg tablet,delayed release 1 tab PO QAM 04/06/17 [History Confirmed 02/01/25] levothyroxine 50 mcg capsule 50 mcg PO QAM 07/11/23 [History Confirmed 02/01/25] multivitamin 1 tab PO QAM 07/12/23 [History Confirmed 02/01/25] vit C 250 mg-vit E 90 mg-zinc 40 mg-copper 1 pm-zibwlq-tpeten capsule (PreserVision AREDS-2) 1 tab PO QAM 07/29/23 [History Confirmed 02/01/25] carvedilol 3.125 mg tablet 3.125 mg PO BID 10/06/23 [History Confirmed 02/01/25] nitroglycerin 0.4 mg sublingual tablet (Nitrostat) 0.4 mg sublingual Q5-15M PRN Chest Pain 30 days #25 tabs 10/06/23 [Rx Confirmed 02/01/25] blood sugar diagnostic (True Metrix Glucose Test Strip) #10 ea 04/17/24 [History Confirmed 11/15/24] ranolazine 500 mg tablet,extended release,12 hr 500 mg PO BID 06/12/24 [History Confirmed 02/01/25] lisinopril 5 mg tablet 5 mg PO QAM 07/19/24 [History Confirmed 02/01/25] glipizide 5 mg tablet, extended release 24 hr 5 mg PO QPM #90 tabs 12/03/24 [Rx Confirmed 02/01/25] montelukast 10 mg tablet (Singulair) 10 mg PO QPM #90 tabs 12/03/24 [Rx Confirmed 02/01/25] atorvastatin 40 mg tablet 40 mg PO QHS 02/01/25 [History Confirmed 02/01/25] isosorbide mononitrate 60 mg tablet,extended release 24 hr 60 mg PO QAM 02/01/25[History Confirmed 02/01/25] magnesium chloride 71.5 mg (magnesium chloride) tablet,delayed release (Slow- Mag) 71.5 mg PO BID 02/01/25 [History Confirmed 02/01/25] metformin 500 mg tablet 500 mg PO QAM 02/01/25 [History Confirmed 02/01/25] Exam Physical Exam Vital Signs: Temp Pulse Resp BP Pulse Ox O2 Del Method 97.4 F L 60 18 125/75 100 Room Air 02/06/25 12:02 02/06/25 15:25 02/06/25 15:25 02/06/25 15:25 02/06/25 15:25 02/06/25 15:25 Results - Hospitalist H&P Lab Results Labs: Laboratory Last Values Corrected WBC 6.5 X10E3/uL (4.1-10.5) 02/06/25 13:20 Uncorrected WBC Count 6.5 x10E3/uL (4.1-10.5) 02/06/25 13:20 RBC 3.38 x10E6/uL (3.90-5.60) L 02/06/25 13:20 Hgb 11.1 g/dL (13.0-17.0) L 02/06/25 13:20 Hct 32.3 % (38.8-50.0) L 02/06/25 13:20 MCV 95.8 fl (83.5-101) 02/06/25 13:20 MCH 32.9 pg (27.5-35.2) 02/06/25 13:20 MCHC 34.4 g/dL (32.5-35.6) 02/06/25 13:20 RDW 13.0 % (12.0-14.8) 02/06/25 13:20 Plt Count 137 x10E3/uL (150-450) L 02/06/25 13:20 MPV 8.9 fl (6.6-10.1) 02/06/25 13:20 Neut % (Auto) 74.9 % (.) 02/06/25 13:20 Lymph % (Auto) 13.0 % (.) 02/06/25 13:20 [place] % (Auto) 10.7 % (.) 02/06/25 13:20 Eos % (Auto) 0.9 % (.) 02/06/25 13:20 Baso % (Auto) 0.5 % (.) 02/06/25 13:20 Nucleat RBC Rel Count 0.0 /100 WBC (0-0.5) 02/06/25 13:20 Neut # (Auto) 4.8 x10E3/uL (1.8-7.7) 02/06/25 13:20 Lymph # (Auto) 0.8 x10E3/uL (1.00-4.8) L 02/06/25 13:20 [place] # (Auto) 0.7 x10E3/uL (0.0-0.8) 02/06/25 13:20 Eos # (Auto) 0.1 x10E3/uL (0.0-0.45) 02/06/25 13:20 Baso # (Auto) 0.0 x10E3/uL (0.0-0.2) 02/06/25 13:20 Monocyte Dist Width 18.31 % (0.00-20.00) 02/06/25 13:20 PT 12.2 Seconds (9.0-12.9) 02/06/25 13:20 INR 1.1 02/06/25 13:20 APTT 26.2 Seconds (25.1-36.5) 02/06/25 13:20 PHA Creatinine Clear 27.60 02/06/25 13:20 Sodium 136 mmol/L (136-145) 02/06/25 13:20 Potassium 4.9 mmol/L (3.5-5.1) 02/06/25 13:20 Chloride 108 mmol/L (98-107) H 02/06/25 13:20 Carbon Dioxide 23.3 mmol/L (21.0-31.0) 02/06/25 13:20 Anion Gap 9.6 mEq/L (6.0-15.0) 02/06/25 13:20 BUN 47 mg/dL (7-25) H 02/06/25 13:20 Creatinine 1.85 mg/dL (0.70-1.30) H 02/06/25 13:20 Est GFR (CKD-EPI) 34.601 mL/Min 02/06/25 13:20 Glucose 226 mg/dL (70-100) H 02/06/25 13:20 Calcium 9.0 mg/dL (8.6-10.3) 02/06/25 13:20 Magnesium 1.8 mg/dL (1.9-2.7) L 02/06/25 13:20 Total Bilirubin 0.5 mg/dl (0.3-1.0) 02/06/25 13:20 AST 20 U/L (13-39) 02/06/25 13:20 ALT 18 U/L (7-52) 02/06/25 13:20 Alkaline Phosphatase 82 U/L (34-104) 02/06/25 13:20 Total Creatine Kinase 146 U/L (30-223) 02/06/25 13:20 Troponin I High Sens 650 ng/L (0-20) H* 02/06/25 13:20 B-Natriuretic Peptide 144.0 pg/mL (5-100) H 02/06/25 13:20 Total Protein 5.8 gm/dL (6.4-8.9) L 02/06/25 13:20 Albumin 3.6 gm/dL (3.5-5.7) 02/06/25 13:20 Globulin 2.2 gm/dL 02/06/25 13:20 Albumin/Globulin Ratio 1.6 02/06/25 13:20 Urine Color Yellow (Yellow) 02/06/25 15:28 Urine Appearance Clear (Clear) 02/06/25 15:28 Urine pH 5.0 (5.0-9.0) 02/06/25 15:28 Ur Specific [place] 1.018 (1.001-1.030) 02/06/25 15:28 Urine Protein Negative mg/dL (Negative) 02/06/25 15:28 Urine Glucose (UA) Normal mg/dL (Normal) 02/06/25 15:28 Urine Ketones Negative (Negative) 02/06/25 15:28 Urine Occult Blood Negative (Negative) 02/06/25 15:28 Urine Nitrite Negative (Negative) 02/06/25 15:28 Urine Bilirubin Negative (Negative) 02/06/25 15:28 Urine Urobilinogen Normal mg/dL (Normal) 02/06/25 15:28 Ur Leukocyte Esterase 1+ (Negative) H 02/06/25 15:28 Urine RBC 1-2 /HPF (0-4) 02/06/25 15:28 Urine WBC 3-4 /HPF (0-4) 02/06/25 15:28 Ur Squamous Epith Cells 1-2 /HPF (0-2) 02/06/25 15:28 Urine Bacteria None seen /HPF (None Seen) 02/06/25 15:28 Hyaline Casts 9-19 /LPF (0-8) H 02/06/25 15:28 Urine Mucus 1+ /LPF A 02/06/25 15:28 Microbiology Results Micro: Microbiology - Results from entire visit 02/06/25 13:00 Stool Stool Occult Blood (RONI) - Final Assessment & Plan Assessment/Plan (1) Dyspnea: Plan . IP vs OBS Justification Based on differential dx, clinical care plan, and risk of adverse events, if untreated, in my clinical judgement this patient requires an acute care setting as: INPATIENT because of an expectation ofan over 2 midnight stay. Estimated length of stay (# of days): 3 Documented By: Jg Olvera MD 02/06/251711 Signed By: 02/06/251712 [facility]09-24-2025 [place] [address] Hospitalist H&P Signed Patient: Ever Mason MR#: [id number] : 1935 Acct:[id number] Age/Sex: 89 / M Adm Date: 5 Loc: 4 Room: [address] [place] [address] Type: ADM IN Attending Dr: Jg Olvera MD Copies to: MD Justice Velez,DO~ HPI DATE OF EXAMINATION: 02/06/25 HISTORY OF PRESENT ILLNESS: Patient is an 89-year-old male, who comes today to the emergency department feeling unwell for about 3 weeks or so. He feels lightheaded upon standing, he is short of breath with exertion, he is tired. His appetite is decreased, he lost about 10 pounds over the last couple of weeks. No orthopnea PND leg swelling reported. Today the cleaning lady was leaving the house, he went down to say goodbye to her, at which time he became very short of breath, sweaty, looked very unwell. She got concerned and called her daughter who is a nurse. Patient was brought to ED for evaluation. Patient did not experience any chest pain or pressure at any time. Past medical history Severe CAD, not a candidate for revascularization per [facility]. 6 stents. Diabetes type 2 Hypothyroidism Abdominal arctic aneurysm CKD stage IIIb Asthma History of DVT GERD 10 point review of systems negative except noted Physical exam Patient seen in the emergency room Patient appears comfortable, in no distress. Skin is normally colored, no icterus, cyanosis or edema noted. Capillary refill is normal. Joints are without any effusion. Abdomen is soft, benign, no rebound or rigidity. No organomegaly. Bowel sounds present. Heart regular, no gallop, rub or JVD. There is a 2/6 systolic murmur best audible along the left sternal border and at the apex. Peripheral pulses present bilaterally. [id number] ultrasound with relatively poor windows no major abnormalities noted. Central venous pressure is decreased estimated a pproximately 6 to 7 cm of water in bilateral jugular veins. IVC could not be visualized. Lungs are clear to auscultation, no rales, ronchi or wheezes. HENT normal Neurological: Patient is awake. Cognition is normal. Cranial nerves are intact. Power is symmetric all extremities, with no focal motor deficit identified on a cursory exam. Psych: affect is normal. EKG labs imaging reviewed Assessment and plan 1.Intravascular volume depletion, dehydration Mild REINA on CKD stage IIIb Gentle IV fluid resuscitation 2. Unstable angina. Possible non-STEMI. Troponin is elevated. Patient did have some unusual symptoms earlier today. Admit to the hospital. Recheck serial troponins. Telemetry. Continue aspirin. Administer 1 dose of Lovenox 1 mg/kg. Cardiology evaluation in AM. Due to systolic murmur that sounds to be mitral regurgitation (not mentioned by cardiology consult May of this year), will obtain an echocardiogram. Patient does not have any historical or clinical signs of CHF however. The last 1 done approximately 1 year and a half ago indicated mild AR and mild MR. EF was normal. Chronic problems Severe CAD, not a candidate for revascularization per [facility]. 6 stents. Diabetes type 2 Hypothyroidism Abdominal arctic aneurysm, status post repair CKD stage IIIb Asthma History of DVT GERD [facility] Medical History (Updated 02/06/25 @ 15:50 by Merlin Escobar DO) Trochanteric bursitis Abnormal cardiovascular stress test 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 Renal insufficiency Asthma Myocardial infarction Lumbar back pain with radiculopathy affecting right lower extremity Hypothyroidism GERD (gastroesophageal reflux disease) DVT (deep venous thrombosis) DDD (degenerative disc disease), lumbar BPH (benign prostatic hyperplasia) Arthritis Anemia Acute encephalopathy Pneumonia due to COVID-19 virus 2019 Acute confusion Acute dehydration Chest wall contusion Former smoker quit 1957 Diabetes type 2 Angina at rest Abdominal aneurysm Overweight Orthostatic hypotension Hypertension Hyperlipidemia AAA (abdominal aortic aneurysm) Surgical History History of cardiac catheterization History of bladder repair surgery Hx of heart artery stent x6 Hx of tonsillectomy Hx of hand surgery right hand Hx of colonoscopy Family History Brother 80 yrs Father Diabetes 65 yrs Heart disease Mother 78 yrs Heart disease Social History Smoking Status: Former smoker Tobacco Type: cigarettes Substance Use Type: None Meds Medications and Allergies Allergies sitagliptin (Januvia) Allergy (Unknown, Verified 02/06/25 11:59) constipation / ineffective Home Medications aspirin 81 mg tablet,delayed release 1 tab PO QAM 04/06/17 [History Confirmed 02/01/25] levothyroxine 50 mcg capsule 50 mcg PO QAM 07/11/23 [History Confirmed 02/01/25] multivitamin 1 tab PO QAM 07/12/23 [History Confirmed 02/01/25] vit C 250 mg-vit E 90 mg-zinc 40 mg-copper 1 on-petxsf-lxilhu capsule (PreserVision AREDS-2) 1 tab PO QAM 07/29/23 [History Confirmed 02/01/25] carvedilol 3.125 mg tablet 3.125 mg PO BID 10/06/23 [History Confirmed 02/01/25] nitroglycerin 0.4 mg sublingual tablet (Nitrostat) 0.4 mg sublingual Q5-15M PRN Chest Pain 30 days #25 tabs 10/06/23 [Rx Confirmed 02/01/25] blood sugar diagnostic (True Metrix Glucose Test Strip) #10 ea 04/17/24 [History Confirmed 11/15/24] ranolazine 500 mg tablet,extended release,12 hr 500 mg PO BID 06/12/24 [History Confirmed 02/01/25] lisinopril 5 mg tablet 5 mg PO QAM 07/19/24 [History Confirmed 02/01/25] glipizide 5 mg tablet, extended release 24 hr 5 mg PO QPM #90 tabs 12/03/24 [Rx Confirmed 02/01/25] montelukast 10 mg tablet (Singulair) 10 mg PO QPM #90 tabs 12/03/24 [Rx Confirmed 02/01/25] atorvastatin 40 mg tablet 40 mg PO QHS 02/01/25 [History Confirmed 02/01/25] isosorbide mononitrate 60 mg tablet,extended release 24 hr 60 mg PO QAM 02/01/25[History Confirmed 02/01/25] magnesium chloride 71.5 mg (magnesium chloride) tablet,delayed release (Slow- Mag) 71.5 mg PO BID 02/01/25 [History Confirmed 02/01/25] metformin 500 mg tablet 500 mg PO QAM 02/01/25 [History Confirmed 02/01/25] Exam Physical Exam Vital Signs: Temp Pulse Resp BP Pulse Ox O2 Del Method 97.4 F L 60 18 125/75 100 Room Air 02/06/25 12:02 02/06/25 15:25 02/06/25 15:25 02/06/25 15:25 02/06/25 15:25 02/06/25 15:25 Results - Hospitalist H&P Lab Results Labs: Laboratory Last Values Corrected WBC 6.5 X10E3/uL (4.1-10.5) 02/06/25 13:20 Uncorrected WBC Count 6.5 x10E3/uL (4.1-10.5) 02/06/25 13:20 RBC 3.38 x10E6/uL (3.90-5.60) L 02/06/25 13:20 Hgb 11.1 g/dL (13.0-17.0) L 02/06/25 13:20 Hct 32.3 % (38.8-50.0) L 02/06/25 13:20 MCV 95.8 fl (83.5-101) 02/06/25 13:20 MCH 32.9 pg (27.5-35.2) 02/06/25 13:20 MCHC 34.4 g/dL (32.5-35.6) 02/06/25 13:20 RDW 13.0 % (12.0-14.8) 02/06/25 13:20 Plt Count 137 x10E3/uL (150-450) L 02/06/25 13:20 MPV 8.9 fl (6.6-10.1) 02/06/25 13:20 Neut % (Auto) 74.9 % (.) 02/06/25 13:20 Lymph % (Auto) 13.0 % (.) 02/06/25 13:20 [place] % (Auto) 10.7 % (.) 02/06/25 13:20 Eos % (Auto) 0.9 % (.) 02/06/25 13:20 Baso % (Auto) 0.5 % (.) 02/06/25 13:20 Nucleat RBC Rel Count 0.0 /100 WBC (0-0.5) 02/06/25 13:20 Neut # (Auto) 4.8 x10E3/uL (1.8-7.7) 02/06/25 13:20 Lymph # (Auto) 0.8 x10E3/uL (1.00-4.8) L 02/06/25 13:20 [place] # (Auto) 0.7 x10E3/uL (0.0-0.8) 02/06/25 13:20 Eos # (Auto) 0.1 x10E3/uL (0.0-0.45) 02/06/25 13:20 Baso # (Auto) 0.0 x10E3/uL (0.0-0.2) 02/06/25 13:20 Monocyte Dist Width 18.31 % (0.00-20.00) 02/06/25 13:20 PT 12.2 Seconds (9.0-12.9) 02/06/25 13:20 INR 1.1 02/06/25 13:20 APTT 26.2 Seconds (25.1-36.5) 02/06/25 13:20 PHA Creatinine Clear 27.60 02/06/25 13:20 Sodium 136 mmol/L (136-145) 02/06/25 13:20 Potassium 4.9 mmol/L (3.5-5.1) 02/06/25 13:20 Chloride 108 mmol/L (98-107) H 02/06/25 13:20 Carbon Dioxide 23.3 mmol/L (21.0-31.0) 02/06/25 13:20 Anion Gap 9.6 mEq/L (6.0-15.0) 02/06/25 13:20 BUN 47 mg/dL (7-25) H 02/06/25 13:20 Creatinine 1.85 mg/dL (0.70-1.30) H 02/06/25 13:20 Est GFR (CKD-EPI) 34.601 mL/Min 02/06/25 13:20 Glucose 226 mg/dL (70-100) H 02/06/25 13:20 Calcium 9.0 mg/dL (8.6-10.3) 02/06/25 13:20 Magnesium 1.8 mg/dL (1.9-2.7) L 02/06/25 13:20 Total Bilirubin 0.5 mg/dl (0.3-1.0) 02/06/25 13:20 AST 20 U/L (13-39) 02/06/25 13:20 ALT 18 U/L (7-52) 02/06/25 13:20 Alkaline Phosphatase 82 U/L (34-104) 02/06/25 13:20 Total Creatine Kinase 146 U/L (30-223) 02/06/25 13:20 Troponin I High Sens 650 ng/L (0-20) H* 02/06/25 13:20 B-Natriuretic Peptide 144.0 pg/mL (5-100) H 02/06/25 13:20 Total Protein 5.8 gm/dL (6.4-8.9) L 02/06/25 13:20 Albumin 3.6 gm/dL (3.5-5.7) 02/06/25 13:20 Globulin 2.2 gm/dL 02/06/25 13:20 Albumin/Globulin Ratio 1.6 02/06/25 13:20 Urine Color Yellow (Yellow) 02/06/25 15:28 Urine Appearance Clear (Clear) 02/06/25 15:28 Urine pH 5.0 (5.0-9.0) 02/06/25 15:28 Ur Specific [place] 1.018 (1.001-1.030) 02/06/25 15:28 Urine Protein Negative mg/dL (Negative) 02/06/25 15:28 Urine Glucose (UA) Normal mg/dL (Normal) 02/06/25 15:28 Urine Ketones Negative (Negative) 02/06/25 15:28 Urine Occult Blood Negative (Negative) 02/06/25 15:28 Urine Nitrite Negative (Negative) 02/06/25 15:28 Urine Bilirubin Negative (Negative) 02/06/25 15:28 Urine Urobilinogen Normal mg/dL (Normal) 02/06/25 15:28 Ur Leukocyte Esterase 1+ (Negative) H 02/06/25 15:28 Urine RBC 1-2 /HPF (0-4) 02/06/25 15:28 Urine WBC 3-4 /HPF (0-4) 02/06/25 15:28 Ur Squamous Epith Cells 1-2 /HPF (0-2) 02/06/25 15:28 Urine Bacteria None seen /HPF (None Seen) 02/06/25 15:28 Hyaline Casts 9-19 /LPF (0-8) H 02/06/25 15:28 Urine Mucus 1+ /LPF A 02/06/25 15:28 Microbiology Results Micro: Microbiology - Results from entire visit 02/06/25 13:00 Stool Stool Occult Blood (RONI) - Final Assessment & Plan Assessment/Plan (1) Dyspnea: Plan . IP vs OBS Justification Based on differential dx, clinical care plan, and risk of adverse events, if untreated, in my clinical judgement this patient requires an acute care setting as: INPATIENT because of an expectation ofan over 2 midnight stay. Estimated length of stay (# of days): 2 Documented By: Jg Olvera MD 02/06/25 8532 Signed By: 02/06/25 171 [facility]07-03-2025 Evaluation note* Diagnosis Onset Date Resolution Status Admit Date AAA (abdominal aortic aneurysm) acut e November 15, 2024 8:38am Coronary artery disease with angina pectoris acute November 15, 2024 8 :38am Diabetes acute November 15, 2024 8:38am Hypothyroidism acute November 15, 2024 8:38am [facility] Work Phone: 1(553) 362-466407-03-2025 Evaluation note* Diagnosis Onset Date Resolution Status Admit Date AAA (abdominal aortic aneurysm) acut e November 15, 2024 8:38am Coronary artery disease with angina pectoris acute November 15, 2024 8 :38am Diabetes acute November 15, 2024 8:38am Hypothyroidism acute November 15, 2024 8:38am Dyspnea acute January 3:28pm Elevated troponin acute Septemb er 2024 3:28pm Weakness acute January 3:28pm [facility] Work Phone: 1(136) 980-395807-03-2025 Evaluation note* Diagnosis Onset Date Resolution Status Admit Date AAA (abdominal aortic aneurysm) acut e November 15, 2024 8:38am Coronary artery disease with angina pectoris acute November 15, 2024 8 :38am Diabetes acute November 15, 2024 8:38am Hypothyroidism acute November 15, 2024 8:38am Dyspnea acute January 3:28pm [facility]:28[facility] Intravascular volume depletion acute February 06, 2025 3:28pm Multi-vessel coronary artery stenosis acute February 06, 2025 3:28pm Weakness acute January 3:28pm [facility] Work Phone: 1(596) 383-316307-01-2025 History of Present illness Narrative* Renny Christopher, DO - 11/13/2024 9:50 AM EDT Chief Complaint Patient presents with Follow-up 8 month, arteriosclerotic heart disease Subjective Ever Mason is a 89 y.o. male 89-year-old gentleman returns for routine interventional cardiovascular assessment and management due to known severe three-vessel disease. Details of heart catheterization from July 2023 are reviewed. 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 At that time we sent him to [facility] for consideration of CABG; and he was declined CABG. I saw him once in follow-up (routinely follows with [facility] General Cardiology); and this is the secondtime [...] Attestation By signing my name below, I, London Ramirez LPN attest that this documentation has been prepared under the direction and in the presence of Michelle Christopher DO. Provider Attestation - Scribe documentation All medical record entries made by the Scribe were at my direction and personally dictated by me. Ihave reviewed the chart and agree that the record accurately reflects my personal performance of the history, physical exam, discussion and plan. documented in this [facility] Work Phone: 1(709) 166-127307-01-2025 Instructions* Patient Instructions* Deborah Marquez LPN - 11/13/2024 9:50 AM EDT Please [...] through Care Everywhere. * Heart Healthy Diet (Thai) documented in this [facility] Work Phone: 1(724) 646-313905-19-2025 Evaluation note* Diagnosis Onset Date Resolution Status Admit Date Coronary artery disease with angina pectoris acute October 01, 2024 1 0:06am Essential (primary) hypertension resolved October 01, 2024 1 0:06am Diabetes acute November 15, 2024 8:38am [facility] Work Phone: 1(490) 210-395703-06-2025 Evaluation note* Author Narda Aly [facility] Authored July 19, 2024 9:35 am The above note written by Amanuel MARY acting as human recorder, note dictated by Dr. Justice Singh. [facility] Work Phone: 1(375) 838-279502-26-2025 History of Present illness Narrative* Judi Muir, PT - 07/11/2024 11:00 AM EST Images from the original note were not included. Physical Therapy Treatment Visit Patient Name: Ever Mason Today's Date: 07/11/2024 Encounter Diagnoses Name Primary? Lumbar paraspinal muscle spasm Yes Weakness of both lower extremities Spasm of right piriformis muscle Right-sided low back pain with right-sided sciatica, unspecified chronicity Visit number: 4 Timed Code Treatment Minutes: 53 minutes Total Treatment Time: 63 minutes Time In: 1058 Time Out: 1101 History: Pt. Presents to PT with c/c of lumbar pain and LE weakness. Pt. Had injection last year for his back pain which helped. Pt reports 2 weeks ago he had numbness in his left foot which cause him to almost fall but after 10 minutes of sitting his got the feeling back in his foot. Pt. Reports he has LE weakness and gets tired easy. Pt. Was having right hip pain but had injection to hip which helped to decrease his pain. Pt. Was walking with cane before injection due to severe pain. Precautions: universal; don't over exert Subjective Pt reports he feels his legs are getting stronger. Pain: 1-2/10 rest; worst 3/10 after standing for a while Objective: PT Evaluation (07/04/24) Lumbar ROM: grossly WFL in all planes Flexibility: moderate bilateral LE tightness Strength: core 4-/5, right LE 4-/5, left LE 4/5 Treatment: Manual Therapy: Passive ROM, Joint mobilization, Soft Tissue Mobilization, Myofascial Release, Muscle Energy Technique, Neural Mobilization, Myofascial Cupping, Dry Needling, IASTM, and Scar mobilization Therapeutic Exercise: (33 minutes) Instructed Pt with LE/hip strengthening to reduce pain and improve functional tolerance. exercises in grid; Strength, Endurance, Flexibility, ROM, HEP, Neural Mobilization, Power, and Core Stability; 10 minutes Nustep. Therapeutic Activity: (10 minutes) Exercises to improve dynamic activities, functional tasks, functional mobility to return to prior activity level. Dynamic amb at countertop and step ups to improve functional ability. Neuromuscular re-education: (10 minutes) Balance Training, Muscle Facilitation, Dynamic Stability, Core Stabilization, and Blood Flow Restriction Training (BFRT) Modalities: Heat, Ice, Electrical Stimulation, Ultrasound, Cervical Mechanical Traction, Lumbar Mechanical Traction, Iontophoresis, and Fluidotherapy. MHP x10 minutes in prone. Assessment: Pt. Has participated in 4 PT session with start of POC on 07/04 for core/LE weakness and lumbar pain. Progressed throughout for LE/Core strengthening. Pt. Will benefit from skilled PT services. PT treatment to focus on improving strength, balance, and endurance. Pt. Is making good progress toward PT goals. Challenged with balance exercises today. Good tolerance with all ther ex and was give multiple rest breaks throughout session to note overexert patient. Outcome Measure: in chart Short Term Goal: To be met in 2 weeks Goal 1: Pt to be instructed in home exercise program. Shelter Goals: To be met in 10 weeks Goal 1: Pt to report independence and compliance with home program. Goal 2: Pt. Will report of 0/10 low back pain to allow him to perform household activities with less pain. Goal 3: Pt. Will demonstrate 5/5 core strength grossly in all planes to allow him to walk/stand forlong periods of time improve his quality of life. Goal 4: Pt. Will demonstrate 5/5 bilateral LE strength grossly in all planes to allow him to walk/stand for long periods of time to help improve her functional mobility. Goal 5: Pt. Will demonstrate normal bilateral LE muscle flexibility to help improve his functional mobility. Pt will benefit from skilled PT for 1-3x/week from 07/04/24 to 09/12/24 to address the above impairments. I hereby deem this POC medically necessary. Please sign below. Date: documented in this encounterFreeman Health [id number] History of Present illness Narrative* Judi Muir, PT - 07/04/2024 9:30 AM EST Physical Therapy Evaluation Visit Patient Name: Ever Mason Today's Date: 07/04/2024 Encounter Diagnoses Name Primary? Lumbar paraspinal muscle spasm Yes Weakness of both lower extremities Visit number: 1 Timed Code Treatment Minutes: 60 minutes Total Treatment Time: 60 minutes Time In: 0915 Time Out: 1015 History: Pt. Presents to PT with c/c of lumbar pain and LE weakness. Pt. Had injection last year for his back pain which helped. Pt reports 2 weeks ago he had numbness in his left foot which cause him to almost fall but after 10 minutes of sitting his got the feeling back in his foot. Pt. Reports he has LE weakness and gets tired easy. Pt. Was having right hip pain but had injection to hip which helped to decrease his pain. Pt. Was walking with cane before injection due to severe pain. Precautions: universal; don't over exert Subjective Pain: 1-2/10 rest; worst 3/10 after standing for a while Objective: PT Evaluation (07/04/24) Lumbar ROM: grossly WFL in all planes Flexibility: moderate bilateral LE tightness Strength: core 4-/5, right LE 4-/5, left LE 4/5 Treatment: PT evaluation (20 minutes) Education: HEP education with demonstration, Educated on Eval Findings and POC Manual Therapy: Passive ROM, Joint mobilization, Soft Tissue Mobilization, Myofascial Release, Muscle Energy Technique, Neural Mobilization, Myofascial Cupping, Dry Needling, IASTM, and Scar mobilization Therapeutic Exercise: (25 minutes)exercises in grid; Strength, Endurance, Flexibility, ROM, HEP, Neural Mobilization, Power, and Core Stability; 10 minutes Nustep. Therapeutic Activity: Exercises to improve dynamic activities, functional tasks, functional mobility to return to prior activity level Neuromuscular re-education: Balance Training, Muscle Facilitation, Dynamic Stability, Core Stabilization, and Blood Flow Restriction Training (BFRT) Modalities: Heat, Ice, Electrical Stimulation, Ultrasound, Cervical Mechanical Traction, Lumbar Mechanical Traction, Iontophoresis, and Fluidotherapy Assessment: Pt. Has participated in 1 PT session with start of POC on 07/04 for core/LE weakness and lumbar pain. Pt. Will benefit from skilled PT services. PT treatment to focus on improving strength, balance, and endurance. Outcome Measure: in chart Short Term Goal: To be met in 2 weeks Goal 1: Pt to be instructed in home exercise program. 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 Goal 2: Pt. Will report of 0/10 low back pain to allow him to perform household activities with less pain. Goal 3: Pt. Will demonstrate 5/5 core strength grossly in all planes to allow him to walk/stand forlong periods of time improve his quality of life. Goal 4: Pt. Will demonstrate 5/5 bilateral LE strength grossly in all planes to allow him to walk/stand for long periods of time to help improve her functional mobility. Goal 5: Pt. Will demonstrate normal bilateral LE muscle flexibility to help improve his functional mobility. Pt will benefit from skilled PT for 1-3x/week from 07/04/24 to 09/12/24 to address the above impairments. I hereby deem this POC medically necessary. Please sign below. 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 [facility] [place] [facility] Department of Cardiovascular Medicine SECTION OF INTERVENTIONAL CARDIOLOGY OUTPATIENT VISIT DATE June 11, 2024 OUTPATIENT VISIT TYPE NEW PRIMARY CARE PHYSICIAN: Justice Singh DO REFERRING PHYSICIAN: WINNIE MARTIN [address] [id number] CHIEF COMPLAINT: Fatigue HISTORY OF PRESENT ILLNESS: Mr. Mason is an 88 year old male who presents today for evaluation of fatigue in the setting of CAD. He has past medical history of: - CAD s/p PCI mid LAD. - hypertension - hyperlipidemia - type 2 diabetes mellitus Patient has been complaining of fatigue on exertion with activities of daily living. He had a nuclear stress test done 07/25/2023 showing minimal inferior wall reversible ischemia followed by a LHC 2023 showed triple vessel disease. He was then evaluated by CTS and interventional cardiology at and both CABG and PCI were deferred due to high risk with minimal symptoms, and he was then treated medically. He is presenting today for a second opinion regarding possibility for intervention. Of note, his Imdur was recently increased from 30 to 60 mg, and patient had noticed significant improvement in his symptoms, however he still has residual fatigue on exertion. PAST MEDICAL HISTORY Diagnosis Date CAD (coronary artery disease) COVID 2020 hospitalized for 2 weeks HLD (hyperlipidemia) HTN (hypertension) PAST SURGICAL HISTORY Procedure Laterality Date PAST SURGICAL HISTORY OF AAA surgery *unsure of date* [facility] PCI/STENT 2007 4 stents in [place], [place] PCI/STENT 2013 2 stents in [place] TONSILLECTOMY & ADENOIDECTOMY <AGE 13 Social History Tobacco Use Smoking status: Former Types: Cigarettes Smokeless tobacco: Never Tobacco comments: Quit smoking in 1957. Smoked 22 years. Substance Use Topics Alcohol use: Not Currently Drug use: Not Currently FAMILY HISTORY Problem Relation Age of Onset Heart Attack Father in his 60s Diabetes Father ALLERGIES No Known Allergies MEDICATIONS: aspirin, enteric coated (ASPIRIN, ENTERIC COATED) 81 mg EC tablet Take 81 mg by mouth once daily. SYNTHROID 50 mcg tablet Take 1 tablet by mouth every morning. Vit B Comp and C-Vit E-FA-Briana-Zn 0.4 mg tab Take 1 capsule by mouth once daily. antiox #8/om3/dha/epa/lut/zeax (PRESERVISION AREDS 2, OMEGA-3, ORAL) Take 1 tablet by mouth once daily. carvedilol (COREG) 3.125 mg tablet Take 3.125 mg by mouth two times a day with meals. glipiZIDE (GLUCOTROL XL) 5 mg 24 hr tablet Take 5 mg by mouth daily at bedtime. lisinopril (ZESTRIL) 5 mg tablet Take 5 mg by mouth once daily. metFORMIN (GLUCOPHAGE) 500 mg tablet Take 500 mg by mouth two times a day. montelukast (SINGULAIR) 10 mg tablet Take 10 mg by mouth daily at bedtime. isosorbide mononitrate ER (IMDUR) 60 mg 24 hr tablet Take 1 tablet by mouth once daily. atorvastatin (LIPITOR) 40 mg tablet Take 40 mg by mouth daily at bedtime. nitroglycerin sublingual (NITROQUICK) 0.4 mg SL tablet Dissolve 0.4 mg under the tongue every 5 minutes as needed for chest pain. REVIEW OF SYSTEMS: GENERAL: no fever, no chills, and no change in weight HEENT: no headaches, no hearing loss, no difficulty swallowing, no visual changes, no nose bleeds SKIN: no rashes, no lesions, and no ulcers RESPIRATORY: SEE HPI CARDIOVASCULAR: See HPI GASTROINTESTINAL: no abdominal pain, no nausea, no vomiting, no difficulty or painful swallowing, and no melanotic stools GENITOURINARY: no dysuria, no frequency, and no nocturia MUSCULOSKELETAL: no joint pain, no joint swelling, no muscle pain or myalgias, and no pain with walking NEUROLOGIC: no numbness, no tingling, and no sensation of pins and needles HEMATOLOGY: no bruising easily, no prolonged bleeding, no anemia, and no cancer ENDOCRINE: no cold or heat intolerance, no polyuria, no polydipsia, no goiter, no diabetes, and no thyroid disease PSYCH: no sleep disturbance, no mood disorders, and no recent psychosocial stressors PHYSICAL EXAMINATION: BP 169/64 Pulse 59 Resp 18 Ht 5' 9 (1.75m) Wt 160 lb (72.6kg) SpO2 100[RA]% BMI 23.63 kg/(m^2). Home BP - 120-130/80's mmHg Gen: NAD. Pleasant affect. HEENT: JVP 7 cm at 45 degrees upright. EOMI. Chest: CTAB without w/r/r. Normal effort. CV: Normal S1, S2. No murmurs appreciated Abd: Non-distended. Ext: No BLE edema. Neuro: Motor exam grossly normal CARDIOVASCULAR MEDICINE TESTING: Recent Labs: 07/29/23 Chol 131 HDL 46 LDL 61 Trig 121 07/25/23 Lexiscan Stress Test: 08/02/23 Cardiac Catheterization: 09/18/23 TTE: IMPRESSION: Mr. Mason is a 88 year old male with pmh of CAD s/p multiple PCI, currently presenting for symptoms of fatigue attributed to his worsening CAD. 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 He has been advised medical management by both CTS and Iocally. Reassuringly, on his most recent nuclear stress test he had minimal ischemia in the inferior territory. His TTE from September 2023 also did not show any signs of ventricular dysfunction. Subjectively, his symptoms are limited to fatigue and mild shortness of breath on exertion, with no angina, orthopnea or lower extremity edema, though his fatigue improved after increasing the Imdur recently suggestive of a potential contribution from CAD. We need to obtain his LHC to formally assess whehter he has a target for intervention. However, based on above, the etiology of his symptoms could be multifactorial (anemia noted on prior CBC) and not primarily related to his CAD, and given the nature of his diffuse disease, the benefit from PCI would likely be of minimal with increased risk. Therefore given the information provided, we agree with the recommendations of continued medical management and optimizing risk factors. RECOMMENDATIONS: - Obtain outside LHC images for formal assessment of risk / benefit of PCI. - Add ranolazine 500 mg BID. - Continue Imdur 60 mg daily (would not increase given episodes of hypotension at times) - Aspirin 81 mg daily - LDL control to goal < 70 mg/dl. - BP goal <130/80 mmHg; above goal in office today, but states better controlled at home. Continue BB, ACEi, ISMN. Can uptitrate ISMN as needed. - Exercise to goal 150 min moderate intensity / week. - Heart healthy diet, lifestyle discussed - Follow-up pending review of LHC as above. Reasonable to follow virtually in 3 months. I personally interviewed, confirmed and edited the above information as obtained by others. ----- [facility] STAFF PHYSICIAN NOTE OF PERSONAL INVOLVEMENT IN CARE IMPRESSION AND PLAN: I agree with the note by Dr. Morrell above. I have reviewed the documentation obtained and documented by the Resident and I have personally performed a face to face assessment of the patient and have personally participated in the sanon components of the visit which includes medical decision making. I have discussed the case and management of the patient's care. STAFF PHYSICIAN: Miguelangel Morse MD DATE OF SERVICE: June 11, 2024 TIME OF SERVICE: 2:36 PM documented in this encounterWilson Health01-27-2025 NoteHNO ID: [id number] Author: MIGUELANGEL MORSE MD Service: ? Author Type: Physician Type: Progress Notes Filed: 06/11/2024 14:56 Note Text: [facility] [place] [facility] Department of Cardiovascular Medicine SECTION OF INTERVENTIONAL CARDIOLOGY OUTPATIENT VISIT DATE June 11, 2024 OUTPATIENT VISIT TYPE NEW PRIMARY CARE PHYSICIAN: Justice Singh DO REFERRING PHYSICIAN: WINNIE MARTIN [address] [address] CHIEF COMPLAINT: Fatigue HISTORY OF PRESENT ILLNESS: Mr. Mason is an 88 year old male who presents today for evaluation of fatigue in the setting of CAD. He has past medical history of: - CAD s/p PCI mid LAD. - hypertension - hyperlipidemia - type 2 diabetes mellitus Patient has been complaining of fatigue on exertion with activities of daily living. He had a nuclear stress test done 07/25/2023 showing minimal inferior wall reversible ischemia followed by a C 2023 showed triple vessel disease. He was then evaluated by CTS and interventional cardiology at and both CABG and PCI were deferred due to high risk with minimal symptoms, and he was then treated medically. He is presenting today for a second opinion regarding possibility for intervention. Of note, his Imdur was recently increased from 30 to 60 mg, and patient had noticed significant improvement in his symptoms, however he still has residual fatigue on exertion. PAST MEDICAL HISTORY Diagnosis Date CAD (coronary artery disease) COVID 2020 hospitalized for 2 weeks HLD (hyperlipidemia) HTN (hypertension) PAST SURGICAL HISTORY Procedure Laterality Date PAST SURGICAL HISTORY OF AAA surgery *unsure of date* [facility] PCI/STENT 2007 4 stents in [place], [place] PCI/STENT 2014 2 stents in [place] TONSILLECTOMY AND ADENOIDECTOMY Social History Tobacco Use Smoking status: Former Types: Cigarettes Smokeless tobacco: Never Tobacco comments: Quit smoking in 1957. Smoked 22 years. Substance Use Topics Alcohol use: Not Currently Drug use: Not Currently FAMILY HISTORY Problem Relation Age of Onset Heart Attack Father in his 60s Diabetes Father ALLERGIES No Known Allergies MEDICATIONS: aspirin, enteric coated (ASPIRIN, ENTERIC COATED) 81 mg EC tablet Take 81 mg by mouth once daily. SYNTHROID 50 mcg tablet Take 1 tablet by mouth every morning. Vit B Comp and C-Vit E-FA-Briana-Zn 0.4 mg tab Take 1 capsule by mouth once daily. antiox #8/om3/dha/epa/lut/zeax (PRESERVISION AREDS 2, OMEGA-3, ORAL) Take 1 tablet by mouth once daily. carvedilol (COREG) 3.125 mg tablet Take 3.125 mg by mouth two times a day with meals. glipiZIDE (GLUCOTROL XL) 5 mg 24 hr tablet Take 5 mg by mouth daily at bedtime. lisinopril (ZESTRIL) 5 mg tablet Take 5 mg by mouth once daily. metFORMIN (GLUCOPHAGE) 500 mg tablet Take 500 mg by mouth two times a day. montelukast (SINGULAIR) 10 mg tablet Take 10 mg by mouth daily at bedtime. isosorbide mononitrate ER (IMDUR) 60 mg 24 hr tablet Take 1 tablet by mouth once daily. atorvastatin (LIPITOR) 40 mg tablet Take 40 mg by mouth daily at bedtime. nitroglycerin sublingual (NITROQUICK) 0.4 mg SL tablet Dissolve 0.4 mg under the tongue every 5 minutes as needed for chest pain. REVIEW OF SYSTEMS: GENERAL: no fever, no chills, and no change in weight HEENT: no headaches, no hearing loss, no difficulty swallowing, no visual changes, no nose bleeds SKIN: no rashes, no lesions, and no ulcers RESPIRATORY: SEE HPI CARDIOVASCULAR: See HPI GASTROINTESTINAL: no abdominal pain, no nausea, no vomiting, no difficulty or painful swallowing, and no melanotic stools GENITOURINARY: no dysuria, no frequency, and no nocturia MUSCULOSKELETAL: no joint pain, no joint swelling, no muscle pain or myalgias, and no pain with walking NEUROLOGIC: no numbness, no tingling, and no sensation of pins and needles HEMATOLOGY: no bruising easily, no prolonged bleeding, no anemia, and no cancer ENDOCRINE: no cold or heat intolerance, no polyuria, no polydipsia, no goiter, no diabetes, and no thyroid disease PSYCH: no sleep disturbance, no mood disorders, and no recent psychosocial stressors PHYSICAL EXAMINATION: BP 169/64 Pulse 59 Resp 18 Ht 5' 9 (1.75m) Wt 160 lb (72.6kg) SpO2 100[RA]% BMI 23.63 kg/(m2). Home BP - 120-130/80's mmHg Gen: NAD. Pleasant affect. HEENT: JVP 7 cm at 45 degrees upright. EOMI. Chest: CTAB without w/r/r. Normal effort. CV: Normal S1, S2. No murmurs appreciated Abd: Non-distended. Ext: No BLE edema. Neuro: Motor exam grossly normal CARDIOVASCULAR MEDICINE TESTING: Recent Labs: 07/29/23 Chol 131 HDL 46 LDL 61 Trig 121 07/25/23 Lexiscan Stress Test: 08/02/23 Cardiac Catheterization: 09/18/23 TTE: IMPRESSION: Mr. Mason is a 88 year old male with pmh of CAD s/p multiple PCI, currently presenting for symptoms of fatigue attribute (more content not included)... [facility]12-03-2024 Evaluation note* Author Mayte Steiner [facility] Authored April 17, 2024 9 :44am The above note written by Alcon Steiner LPN, acting as human recorder, note dictated by Dr. Justice Singh. [facility] Work Phone: 1(436) 238-157311-29-2024 Telephone encounter Note* Telephone Encounter - Krystal Hernandez - 04/13/2024 11:33 AM EST Received call from patient asking office to mail appt reminder to patient. Patient is schedueld for a new patient visit, will send new patient repacker Sent via [employer] trk# [id number] [facility]11-29-2024 Miscellaneous Notes* Telephone Encounter - Krystal Hernandez - 04/13/2024 11:33 AM EST Received call from patient asking office to mail appt reminder to patient. Patient is schedueld for a new patient visit, will send new patient repacker Sent via [employer] trk# [id number] documented in [facility] encounterWilson [facility]10-31-2024 History of Present illness Narrative* Renny Christopher DO - 03/15/2024 9:40 AM EDT Subjective Ever Mason is a 88 y.o. male Chief Complaint Follow-up 88-year-old gentleman returns for follow-up, he routinely sees Dr. Kaoromia now, former patient of Dr. Person, and had previous coronary interventions performed by myself details of which have been reviewed. Heart catheterization by myself performed earlier this year is reviewed, and at that time there is significant in-stent restenosis and diffuse diabetic distal LAD and circumflex disease and chronic occlusion of the RCA at which point we referred him to [facility] for consideration of CABG. He returned in consultation with myself, for consideration of PCI as CABG was deferred. Since his last office visit he has done very well his angina classification is primarily class I less than class II rarely, he does not routinely take nitrates, performs daily activities and chores and yard work on a regular basis without any disability and attends his granddaughters sporting events again without any problems. His NYHA class is currently I-II/C. His general roll grinder escalatedhis isosorbide to 60 mg. He is hemodynamically stable Again we reviewed indications for intervention (his would be very high risk) as well as CABG (againhigh risk) as well as reviewed his excellent NYHA class currently. Again I would continue to recommend conservative management with current medical therapy, we will be happy to follow-up again in the next 8 months or sooner if necessary Review of Systems All other systems reviewed and are negative. Vitals: 03/15/24 0931 BP: 118/60 BP Location: Right arm Patient Position: Sitting Pulse: 60 Weight: 77.1 kg (170 lb) Height: 1.702 m (5' 7 ) Objective Physical Exam Constitutional: Appearance: Normal appearance. HENT: Nose: Nose normal. Neck: Vascular: No carotid bruit. Cardiovascular: Rate and Rhythm: Normal rate. Pulses: Normal pulses. Heart sounds: Normal heart sounds. Pulmonary: Effort: Pulmonary effort is normal. Abdominal: [...] no known allergies. Current Medications Current Outpatient Medications: aspirin 81 mg EC tablet, Take 1 tablet (81 mg) by mouth once daily., Disp: , Rfl: atorvastatin (Lipitor) 20 mg tablet, Take 1 tablet (20 mg) by mouth once daily at bedtime. (Patienttaking differently: Take 2 tablets (40 mg) by mouth once daily at bedtime.), Disp: 90 tablet, Rfl: 3 carvedilol (Coreg) 3.125 mg tablet, Take 1 tablet (3.125 mg) by mouth 2 times daily (morning and late afternoon)., Disp: 180 tablet, Rfl: 3 glipiZIDE XL (Glucotrol XL) 5 mg 24 hr tablet, Take 1 tablet (5 mg) by mouth once daily., Disp: , Rfl: isosorbide mononitrate ER (Imdur) 30 mg 24 hr tablet, TAKE 1 TABLET BY MOUTH DAILY (Patient taking differently: Take 2 tablets (60 mg) by mouth once daily.), Disp: 90 tablet, Rfl: 3 levothyroxine (Synthroid, Levoxyl) 50 mcg tablet, Take 1 tablet (50 mcg) by mouth once daily in themorning. Take before meals., Disp: , Rfl: lisinopril 5 mg tablet, Take 1 tablet (5 mg) by mouth once daily., Disp: 90 tablet, Rfl: 3 magnesium chloride (Slow-Mag) 71.5 mg tablet,delayed release (DR/EC), Take 1 tablet (71.5 mg) by mouth once daily., Disp: , Rfl: metFORMIN (Glucophage) 500 mg tablet, Take 1 tablet (500 mg) by mouth 2 times daily (morning and late afternoon)., Disp: , Rfl: montelukast (Singulair) 10 mg tablet, Take 1 tablet (10 mg) by mouth once daily., Disp: , Rfl: multivit with min-folic acid 0.4 mg tablet, Take 1 capsule by mouth once daily., Disp: , Rfl: nitroglycerin (Nitrostat) 0.4 mg SL tablet, Place 1 tablet (0.4 mg) under the tongue every 5 minutes if needed for chest pain., Disp: , Rfl: Assessment/Plan 1. ASHD (arteriosclerotic heart disease) Follow Up In Cardiology 2. History of PTCA 3. Angina, class I (CMS-HCC) 4. Primary hypertension 5. Mixed hyperlipidemia 6. Type 2 diabetes mellitus with other specified complication, without long-term current use of insulin 7. BMI 26.0-26.9,adult 8. Former smoker Scribe Attestation By signing my name below, I, Deborah Corbin LPN , Scribe attest that this documentation has been prepared under the direction and in the presence of Michelle Christopher DO. Provider Attestation - Scribe documentation All medical record entries made by the Scribe were at my direction and personally dictated by me. Ihave reviewed the chart and agree that the record accurately reflects my personal performance of the history, physical exam, discussion and plan. documented in [facility]Ohio[facility] Work Phone: 1(331) 373-764610-31-2024 Instructions* Patient Instructions* Deborah Marquez LPN - 03/15/2024 9:40 AM EDT Please bring all medicines, vitamins, and herbal supplements with you when you come to the office. Prescriptions will not be filled unless you are compliant with your follow up appointments or have a follow up appointment scheduled as per instruction of your physician. Refills should be requested at the time of your visit. BMI was above normal measurement. Current weight: 77.1 kg (170 lb) Weight change since last visit (-) denotes wt loss -2 lbs Weight loss needed to achieve BMI 25: 10.7 Lbs Weight loss needed to achieve BMI 30: -21.1 Lbs Provided instructions on dietary changes Provided instructions on exercise. * Attachments The following attachments cannot be sent through Care Everywhere. * Heart Healthy Diet (Thai) documented in this encounterOhio[facility] Work Phone: 1(421) 764-570309-18-2024 Evaluation note* Author Shea Boyd [facility] Authored February 01, 2024 2:43pm The above note written by USMAN Nunn acting as human recorder, note dictated by . [facility] Work Phone: 1(183) 560-690009-04-2024 Progress note Author Ayla Estrada [facility] January 18, 2024 1:22pm Note Date/Time January 18, 2024 11:22am [facility] [address] [place] [address] Cardiology Progress Note Signed with Addenda Patient: Ever Mason MR#: [id number] : 1935 Acct:[id number] Age/Sex: 88 / M Adm Date: 4 Loc: 4N Room: [address] [place] [address] Type: ADM IN Attending Dr: Ashley Griffiths MD Copies to: ~ ADDENDUM2 Patient's primary roll grinder spoke to the family and the patient extensively they have decided to proceed with high risk PCI after evaluation at [facility] but as outpatient rather than inpatient. Further discussion with the roll grinder in the office in terms of medical optimization given that patient has no troponin elevation merrily reversible ECGchanges, I was recommended to continue current medication regimen until patient can be seen by [facility]. The primary roll grinder will provide instruction for close follow-up as well as insurance approval for patient's visit (hopefully soon). No further recommendation from cardiology at this time; given that patient is pretty certain that they would like to go home today. We would advise ER precautions and offer our services if needed. Thank you for this consultation, cardiology will sign off at this time. Please reconsult if patient's clinical condition changes. Addendum Documented By: Ayla Estrada DO 01/18/24 1322 Addendum Signed By: <Electronically signed by Ayla Estrada DO> 01/18/24 1322 ADDENDUM1 Extensive discussion with the patient his and the granddaughter as a familyconversation in regard to my recommendations in terms of treatment plan moving forward. I strongly suggest patient to consider [facility] cardiology evaluationfor high risk PCI; we have discussed the risk benefits and alternatives and the patient's suggested perhaps a discussion with their primary roll grinder prior to that decision. When I return to the office I have discussed patient's case (multiple conversations since patient's admission yesterday), and I suggested perhaps he would speak to the family upstairs to help and guide their decision. After noted that we will abide by the family's decision ultimately will also under the guidance of their primary roll grinder treatment plan moving forward. Addendum Documented By: Ayla Estrada DO 01/18/24 1246 Addendum Signed By: <Electronically signed by Ayla Estrada DO> 01/18/24 1246 Date of Service: 01/18/2024 Subjective Interval history: Patient was seen and evaluated bedside patient is very comfortable sitting in the chair without exhibiting any signs of distress. Patient was able to answer all questions remains alert oriented and was also had some questioning in terms of his continued care. Patient has stated that he does not feel comfortable getting his high risk PCI at our facility and thus I have made recommendation perhaps transfer to a higher level of care at a [facility] would be most beneficial for his long-term prognosis. Patient stated that he will discuss this case with his before making his final decision. We also have informed the patient that his EKG changes (T wave inversion) from yesterday has now reverted back to normal which concerns as greatly given that significant discomfort that made him come into the hospital has probably put thesignificant stress on his heart resulted in these EKG changes. Currently Pt hasbeen pain free since admission. Discussed with the patient at bedside in regard to transfer to [facility] for high risk PCI Exam Physical Exam Vital Signs: Temp Pulse Resp BP Pulse Ox O2 Del Method 98.4 F 68 12 174/86 H 96 Room Air 01/18/24 07:56 01/18/24 07:56 01/18/24 07:56 01/18/24 07:56 01/18/24 07:56 01/18/24 07:56 Additional Findings Additional Findings: Cardiovascular focused physical exam: General: Alert and oriented without signs of distress Cardiovascular: Normal sinus rhythm Pulmonary: Bilateral clear Extremity: 2+ pulses all 4 extremities without cyanosis edema Objective Labs 01/18/24 04:14 01/18/24 04:14 Labs: Laboratory Results - last 24 hr 01/17/24 01/17/24 01/17/24 14:45 14:45 20:16 Corrected WBC 10.1 Uncorrected WBC Count 10.1 RBC 4.16 Hgb 13.3 Hct 38.8 MCV 93.3 MCH 31.9 MCHC 34.2 RDW 13.7 Plt Count 173 MPV 8.6 Neut % (Auto) 75.7 Lymph % (Auto) 11.0 Alger % (Auto) 12.1 Eos % (Auto) 0.7 Baso % (Auto) 0.5 Nucleat RBC Rel Count 0.0 Neut # (Auto) 7.7 Lymph # (Auto) 1.1 Alger # (Auto) 1.2 H Eos # (Auto) 0.1 Baso # (Auto) 0.1 Monocyte Dist Width 19.78 PHA Creatinine Clear 40.03 Sodium 137 Potassium 4.3 Chloride 104 Carbon Dioxide 21.8 Anion Gap 15.5 H BUN 24 Creatinine 1.30 Est GFR (CKD-EPI) 53.169 Glucose 230 H POC Glucose Calcium 9.4 Magnesium 1.5 L Cancelled Total Bilirubin 0.8 AST 22 ALT 17 Alkaline Phosphatase 95 Troponin I High Sens 5.4 6.4 Total Protein 7.3 Albumin 4.0 Globulin 3.3 Albumin/Globulin Ratio 1.2 Lipase 70.0 01/17/24 01/17/24 01/18/24 21:16 23:33 04:14 Corrected WBC 7.4 Uncorrected WBC Count 7.4 RBC 3.74 L Hgb 11.9 L Hct 35.2 L MCV 94.2 MCH 32.0 MCHC 33.9 RDW 13.3 Plt Count 154 MPV 8.6 Neut % (Auto) 72.8 Lymph % (Auto) 13.8 Alger % (Auto) 12.5 Eos % (Auto) 0.4 Baso % (Auto) 0.5 Nucleat RBC Rel Count 0.1 Neut # (Auto) 5.4 Lymph # (Auto) 1.0 Alger # (Auto) 0.9 H Eos # (Auto) 0.0 Baso # (Auto) 0.0 Monocyte Dist Width PHA Creatinine Clear 43.73 Sodium 137 Potassium 4.1 Chloride 105 Carbon Dioxide 24.7 Anion Gap 11.4 BUN 22 Creatinine 1.19 Est GFR (CKD-EPI) 59.120 Glucose 201 H POC Glucose 277 Calcium 8.8 Magnesium Total Bilirubin AST ALT Alkaline Phosphatase Troponin I High Sens 6.0 9.0 Total Protein Albumin Globulin Albumin/Globulin Ratio Lipase 01/18/24 07:55 Corrected WBC Uncorrected WBC Count RBC Hgb Hct MCV MCH MCHC RDW Plt Count MPV Neut % (Auto) Lymph % (Auto) Alger % (Auto) Eos % (Auto) Baso % (Auto) Nucleat RBC Rel Count Neut # (Auto) Lymph # (Auto) Alger # (Auto) Eos # (Auto) Baso # (Auto) Monocyte Dist Width PHA Creatinine Clear Sodium Potassium Chloride Carbon Dioxide Anion Gap BUN Creatinine Est GFR (CKD-EPI) Glucose POC Glucose 170 Calcium Magnesium Total Bilirubin AST ALT Alkaline Phosphatase Troponin I High Sens Total Protein Albumin Globulin Albumin/Globulin Ratio Lipase A&P - Cardiology (1) Crescendo angina: Code(s): I20.0 - Unstable angina (2) Essential (primary) hypertension: Code(s): I10 - Essential (primary) hypertension (3) 3-vessel coronary artery disease: Code(s): I25.10 - Atherosclerotic heart disease of [place] coronary artery without angina pectoris (4) Diabetes: Qualifiers: Diabetes mellitus type: type 2 Diabetes mellitus retirement insulin use:without retirement use Diabetes mellitus complication status: with hyperglycemia Qualified Code(s): E11.65 - Type 2 diabetes mellitus with hyperglycemia Code(s): E11.9 - Type 2 diabetes mellitus without complications (5) Aortic ectasia, thoracic: Code(s): I77.810 - Thoracic aortic ectasia Plan Continue to monitor on telemetry As needed nitro for symptomatic control Transfer to [facility] for higher level care. Documented By: Ayla Estrada DO 01/18/24 1119 Signed By: <Electronically signed by Ayla Estrada DO> 01/18/24 1153 [facility] Work Phone: 1(836) 760-994909-03-2024 Consult note Author Ayla Estrada [facility] January 17, 2024 7:40pm Note Date/Time January 17, 2024 7:40pm [facility] [address] [place] [address] Cardiology Consult Note Signed Patient: Ever Mason MR#: [id number] : 1935 Acct:[id number] Age/Sex: 88 / M Adm Date: 4 Loc: ER Room: Type: [facility] ER Attending Dr: Copies to: DO Ayla Sims DO Stephanie M Krise, DO~ Cardiology HPI History of Present Illness Consult Date: 01/17/24 Reason for Consult: chest pain HPI: Mr. Mason is a 88 year old male According to the patient it started yesterday, at rest, initially it was pain in the neck and shoulder area radiating to the chest, it improved after rubbing, and then reoccurred and todaybecame quite constant and quite severe, associated with some nausea and dizziness. Yesterday patient had some nausea and vomited, nonbloody. He deniesany sweating. However per he was quite pale. He denies any abdominal pain. No diarrhea. No dysuria urgency frequency. He does have underlying coronary artery disease with cardiac catheterization July 2023, at that time severe three-vessel disease was noted, patient was referred to tertiary care center for CT evaluation, however he was considered to be too high of a risk. His medications were adjusted and treated conservatively. This time he presented back to emergency room. Emergency room physician notified roll grinder who saw the patient in emergency room and was okay to admit the patient for cardiac catheterization in the morning. When I saw the patient he denied any chest pain any shoulder pain any neck pain. At that time he was feeling quite well with resolution of his symptoms. Per patient sometimes the pain gets worse when he moves the left upper extremity, today he denied any pain with movements of the shoulder joints. Patient case was discussed with patient's primary roll grinder who has been treating patient with medical optimization since his last admission which he wastransferred to outside facility for CV surgery consultation for bypass consideration. Per patient's as well as primary roll grinder who spoke to this urgent patient is at too high of a risk to undertake such invasive procedure hence patient was discharged from the hospital and continued with medical optimization. Patient was seen and evaluated bedside after patient took 2 nitro prior to hospital arrival since then he has not had any recurrence of symptoms. Presently patient is comfortable laying in bed without exhibiting signs of distress. Thorough evaluation at bedside with patient and as well as with patient's primary roll grinder; discussed treatment options with both primary roll grinder patient's and patient himself we have decided to proceed with planned PCI in the morning. Procedures risks, benefits and alternatives thoroughly discussed all questions answered; will keep patient n.p.o. after midnight, patient was to have recurrence of chest discomfort we will start Nitropaste/drip for symptomatic control until the morning. Review of Systems Review of Systems Review of systems: - Musculoskeletal: Severe pain in the neck and shoulder, radiating to the back. No recent trauma or injury. - Cardiovascular: No current chest pain or shortness of breath. - Gastrointestinal: Occasional mild morning indigestion, no significant nausea. [facility] Medical History Abnormal cardiovascular stress test AAA (abdominal aortic aneurysm) Trochanteric bursitis 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 Renal insufficiency Asthma Myocardial infarction Lumbar back pain with radiculopathy affecting right lower extremity Hypothyroidism GERD (gastroesophageal reflux disease) DVT (deep venous thrombosis) DDD (degenerative disc disease), lumbar BPH (benign prostatic hyperplasia) Arthritis Anemia COVID-19 Acute encephalopathy Former smoker Diabetes type 2 Angina at rest Abdominal aneurysm Overweight Orthostatic hypotension Hypertension Hyperlipidemia CAD (coronary artery disease) Surgical History History of bladder repair surgery Hx of heart artery stent x6 Hx of tonsillectomy Hx of hand surgery right hand Hx of colonoscopy Family History Brother Legacy FamHx Relation: Brother(s); 80 yrs Father Diabetes 65 yrs Heart disease Mother 78 yrs Heart disease Social History Smoking Status: Former smoker Tobacco Type: cigarettes Substance Use Type: None Meds Medications and Allergies Allergies sitagliptin [Januvia] Allergy (Unknown, Verified 01/17/24 14:15) constipation / ineffective Home Medications aspirin 81 mg tablet,delayed release 1 tab PO QAM 04/06/17 [History Confirmed 01/17/24] levothyroxine 50 mcg capsule 50 mcg PO QAM 07/11/23 [History Confirmed 01/17/24] multivitamin 1 tab PO DAILY 07/12/23 [History Confirmed 01/17/24] vit C 250 mg-vit E 90 mg-zinc 40 mg-copper 1 or-[id number] capsule (PreserVision AREDS-2) 1 tab PO QAM 07/29/23 [History Confirmed 01/17/24] carvedilol 3.125 mg tablet 3.125 mg PO BID 10/06/23 [History Confirmed 01/17/24] nitroglycerin 0.4 mg sublingual tablet (Nitrostat) 0.4 mg sublingual Q5-15M PRN Chest Pain 30 days #25 tabs 10/06/23 [Rx Confirmed 01/17/24] glipizide 5 mg tablet, extended release 24 hr 5 mg PO QPM #90 tabs 12/26/23 [Rx Confirmed 01/17/24] atorvastatin 20 mg tablet 40 mg PO DAILY 01/03/24 [History Confirmed 01/17/24] isosorbide mononitrate 30 mg tablet,extended release 24 hr 60 mg PO DAILY 01/03/24 [History Confirmed 01/17/24] lisinopril 2.5 mg tablet 2.5 mg PO DAILY 01/03/24 [History Confirmed 01/17/24] metformin 500 mg tablet 500 mg PO DAILY 01/03/24 [History Confirmed 01/17/24] montelukast 10 mg tablet (Singulair) 10 mg PO QPM #90 tabs 01/03/24 [Rx Confirmed 01/17/24] Exam Physical Exam Vital Signs: Temp Pulse Resp BP Pulse Ox O2 Del Method 97.6 F 64 20 106/60 96 Room Air 01/17/24 14:19 01/17/24 18:06 01/17/24 18:06 01/17/24 18:06 01/17/24 18:06 01/17/24 18:06 Additional Findings Additional Findings: Cardiovascular focused physical exam: General: Alert and oriented without signs of distress Cardiovascular: Normal sinus rhythm Pulmonary: Bilateral clear Extremity: 2+ pulses all 4 extremities without cyanosis edema Results - Cardiology Labs 01/17/24 14:45 01/17/24 14:45 Lab results: Cardiac Enzymes 01/17/24 Range/Units 14:45 AST 22 (13-39) U/L CBC 01/17/24 Range/Units 14:45 RBC 4.16 (3.90-5.60) X10E6/uL Hgb 13.3 (13.0-17.0) g/dL Hct 38.8 (38.8-50.0) % Plt Count 173 (150-450) x10E3/uL Neut # (Auto) 7.7 (1.8-7.7) x10E3/uL Lymph # (Auto) 1.1 (1.00-4.8) x10E3/uL Alger # (Auto) 1.2 H (0.0-0.8) x10E3/uL Eos # (Auto) 0.1 (0.0-0.45) x10E3/uL Baso # (Auto) 0.1 (0.0-0.2) x10E3/uL Comprehensive Metabolic Panel 01/17/24 Range/Units 14:45 Sodium 137 (136-145) mmol/L Potassium 4.3 (3.5-5.1) mmol/L Chloride 104 (98-107) mmol/L Carbon Dioxide 21.8 (21.0-31.0) mmol/L BUN 24 (7-25) mg/dL Creatinine 1.30 (0.70-1.30) mg/dL Glucose 230 H (70-100) mg/dL Calcium 9.4 (8.6-10.3) mg/dL AST 22 (13-39) U/L ALT 17 (7-52) U/L Alkaline Phosphatase 95 (34-104) U/L Total Protein 7.3 (6.4-8.9) gm/dL Albumin 4.0 (3.5-5.7) gm/dL Intake and Output 01/17/24 01/17/24 01/17/24 07:59 15:59 23:59 Other: # Voids 0 # Bowel Movements 0 # Emeses 0 Weight 76.8 kg Patient Weight 01/17/24 23:59 Weight 76.8 kg A&P - Cardiology (1) Crescendo angina: Code(s): I20.0 - Unstable angina (2) Essential (primary) hypertension: Code(s): I10 - Essential (primary) hypertension (3) 3-vessel coronary artery disease: Code(s): I25.10 - Atherosclerotic heart disease of [place] coronary artery without angina pectoris (4) Diabetes: Qualifiers: Diabetes mellitus type: type 2 Diabetes mellitus retirement insulin use:without intermodal customer service use Diabetes mellitus complication status: with hyperglycemia Qualified Code(s): E11.65 - Type 2 diabetes mellitus with hyperglycemia Code(s): E11.9 - Type 2 diabetes mellitus without complications (5) Aortic ectasia, thoracic: Code(s): I77.810 - Thoracic aortic ectasia Plan Extensive discussion with the patient's primary roll grinder (over the telephone), patient himself and his at bedside after conveyed the risk-benefit and alternatives patient and his has decided to proceed with stagedPCI. Given the patient has been turned down for surgical bypass and due to unacceptable risk, and patient has failed medical optimization with recurrence of clinical symptoms as well as new ECG changes, we will continue to trend troponins and EKG x 3 set every 3 hours Discussed with the ED physicians to consult hospitalist for admission and provide nitro in the form of Nitropaste or nitro drip if patient's symptoms was to recur tonight. N.p.o. after midnight for heart cath staged PCI in the morning Documented By: Ayla Estrada DO 01/17/241930 Signed By: <Electronically signed by Ayla Estrada DO> 01/17/241939 [facility] Work Phone: 1([phone] 874-581109-03-2024 History and physical note Author Ashley Griffiths [facility] January 17, 2024 7:22pm Note Date/Time January 17, 2024 7:16pm [facility] [address] [place] [address] Hospitalist H&P Signed Patient: Ever Mason MR#: [id number] : 1935 Acct:[id number] Age/Sex: 88 / M Adm Date: 4 Loc: ER Room: Type: [facility] Attending Dr: Copies to: DO Ashley Sims MD Stephanie M Krise, ~ HPI DATE OF EXAMINATION: 01/17/24 CHIEF COMPLAINT: Chest pain/left shoulder pain/left neck pain HISTORY OF PRESENT ILLNESS: 88 years old male, presented with the symptoms as noted above. According to thepatient it started yesterday, at rest, initially it was pain in the neck and shoulder area radiating to the chest, it improved after rubbing, and then reoccurred and today became quite constant and quite severe, associated with some nausea and dizziness. Yesterday patient had some nausea and vomited, nonbloody. He denies any sweating. However per he was quite pale. He denies any abdominal pain. No diarrhea. No dysuria urgency frequency. He doeshave underlying coronary artery disease with cardiac catheterization July 2023,at that time severe three-vessel disease was noted, patient was referred to tertiary care center for CT evaluation, however he was considered to be too highof a risk. His medications were adjusted and treated conservatively. This timehe presented back to emergency room. Emergency room physician notified roll grinder who saw the patient in emergency room and was okay to admit the patient for cardiac catheterization in the morning. When I saw the patient he denied any chest pain any shoulder pain any neck pain. At that time he was feeling quite well with resolution of his symptoms. Per patient sometimes the pain gets worse when he moves the left upper extremity, today he denied any pain with movements of the shoulder joints. 10 systems are reviewed and are negative apart as mentioned H&P General -patient is awake alert oriented ?3, does not appear to be in distress HEENT -normal oropharyngeal mucosa without any ulcers or exudates Cardiovascular -S1 plus S2, with systolic murmur Pulmonary -clear to auscultation bilaterally Gastrointestinal -abdomen is soft, nondistended, nontender, bowel sounds positive, no rigidity, no rebound Genitourinary -deferred Musculoskeletal -no joint swelling There is full range of motion of the left shoulder joint without any significantinducible pain upon active range of motion's. Neurological -no focal Skin -no significant ulcers, no rash noted Extremities - no edema in bilateral lower extremities noted Psychiatry - appropriate affect Laboratory work up, imaging studies reviewed EKG personally reviewed by me normal sinus rhythm with ventricular rate 78, QTc 419, with T wave inversions in 3 and aVF and flattening V5 V6. T wave inversions is new compared with EKG on September 17 Previous records in the computer system reviewed Chest x-ray without acute findings with bibasilar atelectasis [facility] Medical History Abnormal cardiovascular stress test AAA (abdominal aortic aneurysm) Trochanteric bursitis 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 Renal insufficiency Asthma Myocardial infarction Lumbar back pain with radiculopathy affecting right lower extremity Hypothyroidism GERD (gastroesophageal reflux disease) DVT (deep venous thrombosis) DDD (degenerative disc disease), lumbar BPH (benign prostatic hyperplasia) Arthritis Anemia COVID-19 Acute encephalopathy Former smoker Diabetes type 2 Angina at rest Abdominal aneurysm Overweight Orthostatic hypotension Hypertension Hyperlipidemia CAD (coronary artery disease) Surgical History History of bladder repair surgery Hx of heart artery stent x6 Hx of tonsillectomy Hx of hand surgery right hand Hx of colonoscopy Family History Brother Legacy FamHx Relation: Brother(s); 80 yrs Father Diabetes 65 yrs Heart disease Mother 78 yrs Heart disease Social History Smoking Status: Former smoker Tobacco Type: cigarettes Substance Use Type: None Meds Medications and Allergies Allergies sitagliptin [Januvia] Allergy (Unknown, Verified 01/17/24 14:15) constipation / ineffective Home Medications aspirin 81 mg tablet,delayed release 1 tab PO QAM 04/06/17 [History Confirmed 01/17/24] levothyroxine 50 mcg capsule 50 mcg PO QAM 07/11/23 [History Confirmed 01/17/24] multivitamin 1 tab PO DAILY 07/12/23 [History Confirmed 01/17/24] vit C 250 mg-vit E 90 mg-zinc 40 mg-copper 1 [id number] capsule (PreserVision AREDS-2) 1 tab PO QAM 07/29/23 [History Confirmed 01/17/24] carvedilol 3.125 mg tablet 3.125 mg PO BID 10/06/23 [History Confirmed 01/17/24] nitroglycerin 0.4 mg sublingual tablet (Nitrostat) 0.4 mg sublingual Q5-15M PRN Chest Pain 30 days #25 tabs 10/06/23 [Rx Confirmed 01/17/24] glipizide 5 mg tablet, extended release 24 hr 5 mg PO QPM #90 tabs 12/26/23 [Rx Confirmed 01/17/24] atorvastatin 20 mg tablet 40 mg PO DAILY 01/03/24 [History Confirmed 01/17/24] isosorbide mononitrate 30 mg tablet,extended release 24 hr 60 mg PO DAILY 01/03/24 [History Confirmed 01/17/24] lisinopril 2.5 mg tablet 2.5 mg PO DAILY 01/03/24 [History Confirmed 01/17/24] metformin 500 mg tablet 500 mg PO DAILY 01/03/24 [History Confirmed 01/17/24] montelukast 10 mg tablet (Singulair) 10 mg PO QPM #90 tabs 01/03/24 [Rx Confirmed 01/17/24] Exam Physical Exam Vital Signs: Temp Pulse Resp BP Pulse Ox O2 Del Method 36.4 C 64 20 106/60 96 Room Air 01/17/24 14:19 01/17/24 18:06 01/17/24 18:06 01/17/24 18:06 01/17/24 18:06 01/17/24 18:06 Results - Hospitalist H&P Lab Results Labs: Laboratory Last Values Corrected WBC 10.1 X10E3/uL (4.1-10.5) 01/17/24 14:45 Uncorrected WBC Count 10.1 x10E3/uL (4.1-10.5) 01/17/24 14:45 RBC 4.16 X10E6/uL (3.90-5.60) 01/17/24 14:45 Hgb 13.3 g/dL (13.0-17.0) 01/17/24 14:45 Hct 38.8 % (38.8-50.0) 01/17/24 14:45 MCV 93.3 fl (83.5-101) 01/17/24 14:45 MCH 31.9 pg (27.5-35.2) 01/17/24 14:45 MCHC 34.2 g/dL (32.5-35.6) 01/17/24 14:45 RDW 13.7 % (12.0-14.8) 01/17/24 14:45 Plt Count 173 x10E3/uL (150-450) 01/17/24 14:45 MPV 8.6 fl (6.6-10.1) 01/17/24 14:45 Neut % (Auto) 75.7 % (.) 01/17/24 14:45 Lymph % (Auto) 11.0 % (.) 01/17/24 14:45 Alger % (Auto) 12.1 % (.) 01/17/24 14:45 Eos % (Auto) 0.7 % (.) 01/17/24 14:45 Baso % (Auto) 0.5 % (.) 01/17/24 14:45 Nucleat RBC Rel Count 0.0 /100 WBC (0-0.5) 01/17/24 14:45 Neut # (Auto) 7.7 x10E3/uL (1.8-7.7) 01/17/24 14:45 Lymph # (Auto) 1.1 x10E3/uL (1.00-4.8) 01/17/24 14:45 Alger # (Auto) 1.2 x10E3/uL (0.0-0.8) H 01/17/24 14:45 Eos # (Auto) 0.1 x10E3/uL (0.0-0.45) 01/17/24 14:45 Baso # (Auto) 0.1 x10E3/uL (0.0-0.2) 01/17/24 14:45 Monocyte Dist Width 19.78 % (0.00-20.00) 01/17/24 14:45 PHA Creatinine Clear 40.03 01/17/24 14:45 Sodium 137 mmol/L (136-145) 01/17/24 14:45 Potassium 4.3 mmol/L (3.5-5.1) 01/17/24 14:45 Chloride 104 mmol/L (98-107) 01/17/24 14:45 Carbon Dioxide 21.8 mmol/L (21.0-31.0) 01/17/24 14:45 Anion Gap 15.5 mEq/L (6.0-15.0) H 01/17/24 14:45 BUN 24 mg/dL (7-25) 01/17/24 14:45 Creatinine 1.30 mg/dL (0.70-1.30) 01/17/24 14:45 Est GFR (CKD-EPI) 53.169 mL/Min 01/17/24 14:45 Glucose 230 mg/dL (70-100) H 01/17/24 14:45 Calcium 9.4 mg/dL (8.6-10.3) 01/17/24 14:45 Total Bilirubin 0.8 mg/dl (0.3-1.0) 01/17/24 14:45 AST 22 U/L (13-39) 01/17/24 14:45 ALT 17 U/L (7-52) 01/17/24 14:45 Alkaline Phosphatase 95 U/L (34-104) 01/17/24 14:45 Troponin I High Sens 5.4 pg/mL (0.0-20.0) 01/17/24 14:45 Total Protein 7.3 gm/dL (6.4-8.9) 01/17/24 14:45 Albumin 4.0 gm/dL (3.5-5.7) 01/17/24 14:45 Globulin 3.3 gm/dL 01/17/24 14:45 Albumin/Globulin Ratio 1.2 01/17/24 14:45 Lipase 70.0 U/L (11.0-82.0) 01/17/24 14:45 Assessment & Plan Assessment/Plan (1) Acute pain of left shoulder: Plan 1. Chest pain/shoulder pain in the patient with underlying severe coronary artery disease status post cardiac authorization in July 2023, at that time he was referred for CT evaluation to the tertiary care center, who recommended to continue with conservative therapies the patient was quite high risk. Patient was evaluated by roll grinder in the emergency room today, recommended cardiac cath in the morning Currently patient is asymptomatic Continue with antiplatelet therapy with aspirin, statins and beta-blockers, willplace Nitropatch EKG new T wave inversions but troponins negative Admit to telemetry Consult cardiology 2. Diabetes mellitus type 2, add sliding scale, hold glipizide 3. DVT prophylaxis SCDs for now The patient care was discussed with the patient and the patient's at the bedside IP vs OBS Justification Based on differential dx, clinical care plan, and risk of adverse events, if untreated, in my clinical judgement this patient requires an acute care setting as: INPATIENT because of an expectation of an over 2 midnight stay. Estimated length of stay (# of days): 3 Documented By: Ashley Griffiths MD 01/17/241910 Signed By: <Electronically signed by Ashley Griffiths MD> 01/17/241921 [facility] Work Phone: 1(503) 893-419608-20-2024 Evaluation note* Author Sara Carroll [facility] Authored January 03, 2024 9: 42am 3 months, Sooner if needed, ER if concerns. The above note was written by Sara Carroll LPN, acting as human recorder, note dictated by Dr. Justice Singh. [facility] Work Phone: 1(552) 752-690508-20-2024 Evaluation note* Author Sara Carroll [facility] Authored January 03, 2024 9: 42am 3 months, Sooner if needed, ER if concerns. The above note was written by Sara Carroll LPN, acting as human recorder, note dictated by Dr. Justice Singh. Author Shea Boyd [facility] Authored February 01, 2024 3:43pm The above note written by USMAN Nunn acting as human recorder, note dictated by . [facility] Work Phone: 1(259) 752-996105-21-2024 Evaluation note* Author [facility] Authored October 04, 2023 9:59a m The above note written by Amanuel MARY acting as human recorder, note dictated by Dr. Justice Singh. [facility] Work Phone: 1(648) 984-544005-06-2024 Progress note Author Richard Galvan [facility] September 19, 2023 1:43pm Note Date/Time September 19, 2023 9:58am [facility] [address] [place] [address] Progress Note Signed Patient: Ever Mason MR#: [id number] : 1935 Acct:[id number] Age/Sex: 88 / M Adm Date: 4 Loc: Room: [address] [place] [address] Type: ADM IN Attending Dr: Richard Galvan MD Copies to: ~ Date of Service: 09/19/2023 Subjective History of Present Illness HPI: Patient is sitting comfortably on chair with no overnight event. Patient reportsthat he feels better. He denies further chest pain or shortness of breath. He denies nausea, diarrhea, or vomiting. Patient reported last BM was a few days ago. He was admitted on 09/16 when present to ER with complaint of chest pain. Hehas known history of coronary artery disease with previous PCI as per the patient over 6 stents placed in the past. He underwent cardiac catheterization on 08/06 which showed severe three-vessel disease with new 85 to 90% proximal circumflex disease and restenotic mid LAD disease. Serial cardiac enzymes have been negative. Patient will proceed with PCI today. Exam Physical Exam Vital Signs: Temp Pulse Resp BP Pulse Ox O2 Del Method 97.9 F 50 L 16 144/82 H 99 Room Air 09/19/23 08:00 09/19/23 08:00 09/19/23 08:00 09/19/23 08:00 09/19/23 08:00 09/19/23 08:00 Narrative: Const Orientation: alert, awake and oriented x3 Resp Effort & Inspection: normal respiratory effort and able to speak in complete sentences Auscultation: no rales, no rhonchi and no wheezes Cardio Rate: regular rate Rhythm: regular rhythm Heart Sounds: S1 normal and S2 normal GI Palpation: soft, not firm, no guarding and nontender Neuro General: patient alert, patient awake, patient oriented x3, moves all extremities, no focal motor deficits and CN's II-XI intact bilaterally Speech: speech normal Motor: muscle tone normal throughout and strength 5/5 throughout Extrem General: no clubbing, cyanosis or edema and no calf tenderness Lab Results Labs: 09/19/23 06:32: POC Glucose 113 09/19/23 05:54: Corrected WBC 5.9, Uncorrected WBC Count 5.9, RBC 3.96, Hgb 12.7L, Hct 37.2 L, MCV 94.0, MCH 32.0, MCHC 34.1, RDW 13.2, Plt Count 107 L, MPV 8.6, Neut % (Auto) 72.4, Lymph % (Auto) 18.7, Alger % (Auto) 6.9, Eos % (Auto) 1.1, Baso % (Auto) 0.9, Nucleat RBC Rel Count 0.0, Neut # (Auto) 4.2, Lymph # (Auto) 1.1, Alger # (Auto) 0.4, Eos # (Auto) 0.1, Baso # (Auto) 0.1, PHA Creatinine Clear 36.39, Sodium 137, Potassium 4.9, Chloride 109 H, Carbon Dioxide 24.1, Anion Gap 8.8, BUN 40 H, Creatinine 1.43 H, Est GFR (CKD-EPI) 47.423, Glucose 132 H, Calcium 8.9 09/18/23 20:47: POC Glucose 145 09/18/23 16:22: POC Glucose 191 09/18/23 11:05: POC Glucose 159 Assessment/Plan Assessment/Plan (1) Crescendo angina: Code(s): I20.0 - Unstable angina (2) Chest pain: Code(s): R07.9 - Chest pain, unspecified (3) CAD (coronary artery disease): Code(s): I25.10 - Atherosclerotic heart disease of [place] coronary artery without angina pectoris (4) Essential (primary) hypertension: Code(s): I10 - Essential (primary) hypertension (5) Chronic renal disease, stage III: Code(s): N18.30 - Chronic kidney disease, stage 3 unspecified Plan Assessment/Plan (1) Chest pain: Plan 1. Chest pain with underlying coronary artery disease, status post recent cardiac cath showing advanced coronary artery disease, followed by cardiothoracic surgeon in [facility], recommended against surgery, followed with Dr. Christopher, recommended medical management, presented with recurrent chest pain, EKG nonischemic, serial troponins have been negative. Patient does have extensive coronary artery disease and there was a consideration for PCI to circumflex and LAD if not a surgical candidate. Given his pain suspecting angina he has been admitted for further workup. Dose of Imdur has been increased to 60 mg. Cardiology has been consulted and PCI will be done today. Continue aspirin, Imdur, carvedilol and statin 2. Diabetes mellitus type 2, add sliding scale. Continue to hold metformin andother oral hypoglycemic agent. 3. Chronic kidney disease stage III, renal function at baseline. Avoid nephrotoxic medications. 4. Hypomagnesemia, replaced. 5. Hypertension, continue lisinopril as blood pressure has improved since he was hypotensive yesterday. Subcutaenous heparin for DVT prophylaxis. Documented By: Richard Galvan MD 09/19/23 0945 Signed By: <Electronically signed by Richard Galvan MD> 09/19/23 1343 [facility] Work Phone: [phone]) 177-707605-05-2024 Consult note Author Mayra Person [facility] September 18, 2023 11:39am Note Date/Time September 18, 2023 10:56a m [facility] [address] [place] [address] Cardiology Consult Note Signed Patient: Ever Mason MR#: [id number] : 1935 Acct:[id number] Age/Sex: 88 / M Adm Date: 4 Loc: Room: [address] [place] [address] Type: ADM IN Attending Dr: Richard Galvan MD Copies to: Justice Singh,MD Mayra Munson MD~ Cardiology HPI History of Present Illness Consult Date: 09/18/23 Reason for Consult: Cardiac consultation requested for evaluation of symptoms of chest pain and angina HPI: Mr. Mason is a 88 year old male well-known to me. He does not have history of multivessel coronary artery disease. He underwent recent cardiac catheterization because of complaint of intermittent chest pain and positive stress test which led to the discovery of three-vessel disease. He was referredfor surgical evaluation but felt to be suboptimal candidate for surgical intervention. He was seen subsequently by Dr. Christopher at that point of time apparently the patient did not report anginal symptoms and Dr. Christopher recommended conservative management. Patient brought to the hospital because ofrecent complaint of decreased exercise tolerance, increasing shortness of breathand recurrent episodes of chest pain with minimal exertion suggestive of angina. He was admitted for evaluation. Cardiac enzyme and EKG appears to be negative. Review of Systems Review of Systems Review of systems: Other than arthritis review of all other pertinent system essentially unremarkable except mentioned above [facility] Medical History Trochanteric bursitis 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 Renal insufficiency Asthma Myocardial infarction Lumbar back pain with radiculopathy affecting right lower extremity Hypothyroidism GERD (gastroesophageal reflux disease) DVT (deep venous thrombosis) DDD (degenerative disc disease), lumbar BPH (benign prostatic hyperplasia) Arthritis Anemia COVID-19 Acute encephalopathy Former smoker Diabetes type 2 Angina at rest Abdominal aneurysm Overweight Orthostatic hypotension Hypertension Hyperlipidemia CAD (coronary artery disease) Surgical History History of bladder repair surgery Hx of heart artery stent x6 Hx of tonsillectomy Hx of hand surgery right hand Hx of colonoscopy Family History Brother Legally FamHx Relation: Brother(s); 80 yrs Father Diabetes 65 yrs Heart disease Mother 78 yrs Heart disease Social History Smoking Status: Former smoker Tobacco Type: cigarettes Substance Use Type: None Meds Medications and Allergies Allergies sitagliptin [Januvia] Allergy (Unknown, Verified 09/17/23 18:03) constipation / ineffective Home Medications aspirin 81 mg tablet,delayed release 1 tab PO QAM 04/06/17 [History Confirmed 09/17/23] carvedilol 3.125 mg tablet 1 tab PO BID 04/06/17 [History Confirmed 09/17/23] isosorbide mononitrate 30 mg tablet,extended release 24 hr 30 mg PO QAM 04/06/17[History Confirmed 09/17/23] montelukast 10 mg tablet (Singulair) 10 mg PO QPM 04/06/17 [History Confirmed 09/17/23] nitroglycerin 0.4 mg sublingual tablet (Nitrostat) 0.4 mg sublingual Q5-15M PRN Chest Pain 04/06/17 [History Confirmed 09/17/23] potassium gluconate 550 mg (90 mg) tablet 1 tab PO DAILY PRN Hypokalemia 04/06/17 [History Confirmed 09/17/23] atorvastatin 20 mg tablet 20 mg PO QHS 02/20/20 [History Confirmed 09/17/23] levothyroxine 50 mcg capsule 50 mcg PO QAM 07/11/23 [History Confirmed 09/17/23] lisinopril 5 mg tablet 5 mg PO QPM 07/11/23 [History Confirmed 09/17/23] metformin 1,000 mg tablet (Glucophage) 500 mg PO QAM 07/12/23 [History Confirmed 09/17/23] multivitamin 1 tab PO DAILY 07/12/23 [History Confirmed 09/17/23] glipizide 5 mg tablet, extended release 24 hr 5 mg PO QPM 07/29/23 [History Confirmed 09/17/23] vit C 250 mg-vit E 90 mg-zinc 40 mg-copper 1 [id number] capsule (PreserVision AREDS-2) 1 tab PO QAM 07/29/23 [History Confirmed 09/17/23] Exam Physical Exam Vital Signs: Temp Pulse Resp BP Pulse Ox O2 Del Method 97.8 F 52 L 17 164/90 H 98 Room Air 09/18/23 08:00 09/18/23 08:00 09/18/23 08:00 09/18/23 08:00 09/18/23 08:00 09/18/23 08:00 Const General: cooperative, comfortable, no acute distress and well developed HEENT Head: atraumatic Mouth: oral mucosae normal Eyes General: appearance normal, both eyes and all related structures Pupils: PERRL Neck Neck: normal visual inspection, supple and no lymphadenopathy noted Neck mass: No Thyroid: thyroid normal Carotids: normal carotid upstroke Chest Chest palpation & inspection: normal inspection of the chest Resp Effort & Inspection: normal respiratory effort Auscultation: clear to auscultation bilaterally Cardio Palpation: normal PMI Rate: regular rate Rhythm: regular rhythm Heart Sounds: S1 normal and S2 normal GI Palpation: soft and no hepatosplenomegaly Percussion: normal to percussion Auscultation: normal bowel sounds Skin General: no rashes or lesions noted and dry skin Neuro General: patient alert, patient awake, patient oriented x3, tone normal and moves all extremities Extrem General: full ROM, capillary refill normal and no clubbing, cyanosis or edema Psych Mental Status: mental status grossly normal Results - Cardiology Labs 09/18/23 05:15 09/18/23 05:15 Lab results: Cardiac Enzymes 09/17/23 Range/Units 18:20 AST 49 H (13-39) U/L Total Creatine Kinase 72 (30-223) U/L B-Natriuretic Peptide 100.0 (5-100) pg/mL CBC 09/17/23 09/18/23 Range/Units 18:20 05:15 RBC 3.99 3.74 L (3.90-5.60) X10E6/uL Hgb 12.8 L 12.0 L (13.0-17.0) g/dL Hct 37.7 L 35.4 L (38.8-50.0) % Plt Count 118 L 100 L (150-450) x10E3/uL Neut # (Auto) 5.5 3.5 (1.8-7.7) x10E3/uL Lymph # (Auto) 1.2 1.0 (1.00-4.8) x10E3/uL Alger # (Auto) 0.7 0.5 (0.0-0.8) x10E3/uL Eos # (Auto) 0.1 0.1 (0.0-0.45) x10E3/uL Baso # (Auto) 0.1 0.0 (0.0-0.2) x10E3/uL Comprehensive Metabolic Panel 09/17/23 09/18/23 Range/Units 18:20 05:15 Sodium 140 140 (136-145) mmol/L Potassium 4.9 5.1 (3.5-5.1) mmol/L Chloride 110 H 109 H (98-107) mmol/L Carbon Dioxide 24.8 23.9 (21.0-31.0) mmol/L BUN 43 H 39 H (7-25) mg/dL Creatinine 1.56 H 1.48 H (0.70-1.30) mg/dL Glucose 135 H 145 H (70-100) mg/dL Calcium 9.2 8.9 (8.6-10.3) mg/dL Direct Bilirubin 0.10 (0.03-0.18) mg/dL Indirect Bilirubin 0.5 mg/dL AST 49 H (13-39) U/L ALT 30 (7-52) U/L Alkaline Phosphatase 88 (34-104) U/L Total Protein 5.9 L (6.4-8.9) gm/dL Albumin 3.7 (3.5-5.7) gm/dL Intake and Output 09/17/23 09/18/23 09/18/23 23:59 07:59 15:59 Intake Total 400 / 400 200 / 200 Balance 400 / 400 200 / 200 Intake: Oral 400 / 400 200 / 200 Other: # Unmeasured Voids 1 Weight 78.7 kg 78.7 kg Date of Last Bowel Movement 09/16/23 Patient Weight 09/18/23 23:59 Weight 78.7 kg Lab 09/17/23 18:20 PT 11.5 INR 1.0 APTT 27.6 EKG Interpretations EKG Attestation EKG: I reviewed this ECG and interpreted as documented below: (EKG showed sinus bradycardia with no ST-T changes) A&P - Cardiology (1) Crescendo angina: Code(s): I20.0 - Unstable angina Plan Assessment 1. Three-vessel coronary artery disease with known severe proximal circumflex, marginal 1, LAD disease with known chronic occlusion of the RCA. Patient felt not a optimal candidate for bypass surgery. He was seen recently by Dr. Christopherbut at that point of time he was not having anginal symptoms and recommendation to continue with medical therapy. Now he clearly have accelerated course and recurrent angina. I did review the form and the patient appears to be reasonable candidate for limited PCI to the proximal circumflex and LAD which might alleviate his anginal symptoms 2. Mild stage III chronic kidney disease 3. Peripheral vascular disease with prior abdominal aortic stent 4. Hypertension 5. Hyperlipidemia 6. The patient noted to be significantly bradycardic he is on very low-dose Coreg of 3.125 twice daily Plan 1. Will continue to monitor heart rate closely if continue to be bradycardic will discontinue Coreg 2. Increase Imdur to 60 mg daily and consider adding Ranexa down the road 3. I reviewed treatment option with the patient and the his at great length. I spent more than 45 minutes discussing the treatment option including continue medical management with gradual uptitrating of antianginal therapy as detailed above versus proceeding with limited PCI to the mid LAD and proximal circumflex. Risk, benefit and alternative reviewed with him at great length taking into consideration his renal dysfunction family elected to proceed with PCI. Will keep tentatively n.p.o. and I will review the film with Dr. Christopher in the morning for arrangement Documented By: Mayra Person MD 09/18/23 8523 Signed By: <Electronically signed by MD Mayra Person> 09/18/23 2408 [facility] Work Phone: 1(872) 167-279705-05-2024 Progress note Author Richard Galvan [facility] September 18, 2023 9:21am Note Date/Time September 18, 2023 9:21am [facility] [address] [place] [address] Hospitalist Progress Note Signed Patient: Ever Mason MR#: [id number] : 1935 Acct:[id number] Age/Sex: 88 / M Adm Date: 4 Loc: Room: [address] [place] [address] Type: ADM IN Attending Dr: Richard Galvan MD Copies to: ~ Date of Service: 09/18/2023 Subjective Subjective Narrative: On examination patient sitting comfortably on chair with no overnight event. Hedenies further chest pain or shortness of breath. He was admitted yesterday when present to ER with complaint of chest pain. He has known history of coronary artery disease with previous PCI as per the patient over 6 stents placed in the past. He underwent cardiac catheterization on 08/06 which showed severe three-vessel disease with new 85 to 90% proximal circumflex disease and restenotic mid LAD disease. He was referred to CT surgeon for second opinion for possible surgery if not then they will reconsider PCI to proximal circumflexand mid LAD. Patient has seen cardiothoracic surgeon at [place] and surgery was not recommended. Patient has switched his cardiac care to Dr. Catalan has seen him once. Serial cardiac enzymes have been negative. Exam Physical Exam Vital Signs: Temp Pulse Resp BP Pulse Ox O2 Del Method 97.8 F 52 L 17 164/90 H 98 Room Air 09/18/23 08:00 09/18/23 08:00 09/18/23 08:00 09/18/23 08:00 09/18/23 08:00 09/18/23 08:00 Const Orientation: alert, awake and oriented x3 Resp Effort & Inspection: normal respiratory effort and able to speak in complete sentences Auscultation: no rales, no rhonchi and no wheezes Cardio Rate: regular rate Rhythm: regular rhythm Heart Sounds: S1 normal and S2 normal GI Palpation: soft, not firm, no guarding and nontender Neuro General: patient alert, patient awake, patient oriented x3, moves all extremities, no focal motor deficits and CN's II-XI intact bilaterally Speech: speech normal Motor: muscle tone normal throughout and strength 5/5 throughout Extrem General: no clubbing, cyanosis or edema and no calf tenderness Objective Lab Results 09/18/23 05:15 09/18/23 05:15 Meds Allergies and Active Meds Allergies sitagliptin [Januvia] Allergy (Unknown, Verified 09/17/23 18:03) constipation / ineffective Active Meds: Active Medications Generic Name Dose Route Start Last Admin Trade Name Freq PRN Reason Stop Dose Admin Acetaminophen 650 mg 09/17/23 19:48 Acetaminophen 325 Mg Tablet PO 09/16/24 19:47 Q4H PRN Pain Scale 1 - 5 Aspirin 81 mg 09/18/23 09:00 09/18/23 09:00 Aspirin 81 Mg Tablet.Dr PO 09/17/24 08:59 81 mg QAM UZMA Administration Atorvastatin Calcium 20 mg 09/17/23 22:00 09/17/23 21:52 Atorvastatin 20 Mg Tablet PO 09/16/24 21:59 20 mg QHS UZMA Administration Carvedilol 3.125 mg 09/17/23 21:00 09/18/23 08:59 Carvedilol 3.125 Mg Tablet PO 09/16/24 20:59 3.125 mg BID UZMA Administration Dextrose 0 gm 09/17/23 19:48 Dextrose 50% In Water 25 Gm/50 Ml Syringe IV-PUSH 09/16/24 19:47 PRN PRN Hypoglycemia Docusate Sodium 200 mg 09/17/23 19:48 Docusate 100 Mg Capsule PO 09/16/24 19:47 BID PRN Constipation Glucose 0 gm 09/17/23 19:48 Dextrose 40% Gel 15 Gm Tube PO 09/16/24 19:47 PRN PRN Hypoglycemia Hydralazine HCl 10 mg 09/17/23 19:48 Hydralazine 20 Mg/Ml Vial IV-PUSH 09/16/24 19:47 Q4H PRN if SBP > 185 Sodium Chloride 1,000 mls @ 75 mls/hr 09/17/23 20:45 09/17/23 21:51 0.9% Sodium Chloride 1,000 Ml IV 09/18/23 10:04 75 mls/hr .[id number] UZMA Administration Isosorbide Mononitrate 30 mg 09/18/23 09:00 09/18/23 08:59 Isosorbide Mononitrate 24hr Er 30 Mg Tab.Er.24h PO 09/17/24 08:59 30 mg QAM UZMA Administration Levothyroxine Sodium 50 mcg 09/18/23 06:30 09/18/23 06:16 Levothyroxine 50 Mcg Tablet PO 09/17/24 06:29 50 mcg DAILY@0630 UZMA Administration Montelukast Sodium 10 mg 09/17/23 21:00 09/17/23 21:52 Montelukast 10 Mg Tablet PO 09/16/24 20:59 10 mg QPM UZMA Administration Nitroglycerin 0.4 mg 09/17/23 18:18 Nitroglycerin 0.4 Mg Tab.Subl SUBLINGUAL 09/16/24 18:17 Q5M PRN Chest Pain Nitroglycerin 0.4 mg 09/17/23 19:47 Nitroglycerin 0.4 Mg Tab.Subl SUBLINGUAL 09/16/24 19:46 Q5MIN.X3 PRN Chest Pain Sodium Chloride 0 ml 09/17/23 18:02 Sodium Chloride 0.9 % 10 Ml Syringe IV-PUSH 09/16/24 18:01 PRN PRN Flush A&P - Hospitalist Assessment/Plan (1) Chest pain: Plan 1. Chest pain with underlying coronary artery disease, status post recent cardiac cath showing advanced coronary artery disease, followed by cardiothoracic surgeon in [facility], recommended against surgery, followed with Dr. Christopher, recommended medical management, presented with recurrent chest pain, EKG nonischemic, serial troponins have been negative. Patient does have extensive coronary artery disease and there was a consideration for PCI to circumflex and LAD if not a surgical candidate. Given his pain suspecting angina he has been admitted for further workup. Possible titration of long-acting nitrate versus intervention. Cardiology has been consulted. Continue aspirin, Imdur, carvedilol and statin 2. Diabetes mellitus type 2, add sliding scale. Continue to hold metformin and other oral hypoglycemic agent. 3. Chronic kidney disease stage III, renal function at baseline. Avoid nephrotoxic medications. 4. Hypomagnesemia, replaced. 5. Hypertension, continue lisinopril as blood pressure has improved since he was hypotensive yesterday. Subcutaenous heparin for DVT prophylaxis. Documented By: Richard Galvan MD 09/18/23912 Signed By: <Electronically signed by Richard Galvan MD> 09/18/23920 [facility] Work Phone: 1([phone]) 713-260605-04-2024 History and physical note Author Ashley Griffiths [facility] September 17, 2023 8:37pm Note Date/Time September 17, 2023 8:37pm [facility] [address] [place] [address] Hospitalist H&P Signed Patient: Ever Mason MR#: [id number] : 1935 Acct:[id number] Age/Sex: 88 / M Adm Date: 4 Loc: 3T Room: [address] [place] [address] Type: ADM IN Attending Dr: Ashley Griffiths MD Copies to: DO Ashley Sims MD~ HPI DATE OF EXAMINATION: 09/17/23 CHIEF COMPLAINT: cp HISTORY OF PRESENT ILLNESS: 88 years old male with underlying history of coronary artery disease, post previous interventions, status post cardiac cath in July 2023, showing 90% proximal circumflex and restenotic mid LAD with normal ejection fraction, at that time recommended second opinion from cardiothoracic surgeon at [facility], patient followed with cardiothoracic surgeon, who did not advise to undergo surgery, afterwards patient followed with Dr. Christopher who thought patient should be managed medically. Since that time sedation did not have any symptoms. However today while driving patient developed chest pressure, left-sided, not associated with any other symptoms, pressure-like sensation, lasting for about 30 minutes. Patient felt quite bad so he asked his daughter to go to emergency room. Upon arrival patient still had chest pain, however it resolved on its own before administering nitroglycerin. I did see the patient emergency room. She was asymptomatic. He denied any shortness of breath any palpitationsany dizziness any nausea any vomiting, however he felt quite weak and tired quickly. Patient is quite physically active, denies any symptoms with activity. He denies any lower extremity swelling. 10 systems are reviewed and are negative apart as mentioned H&P General -patient is awake alert oriented ?3, does not appear to be in distress HEENT -dry oropharyngeal mucosa without any ulcers or exudates Cardiovascular -S1 plus S2, with regular rate, without any murmurs, gallops, rubs Pulmonary -clear to auscultation bilaterally Gastrointestinal -abdomen is soft, nondistended, nontender, bowel sounds positive, no rigidity, no rebound Genitourinary -deferred Musculoskeletal -no back tenderness, no significant joint swelling, full range of motion Neurological -no focal Skin -no significant ulcers, no rash noted Extremities - no edema in bilateral lower extremities noted Psychiatry - appropriate affect Laboratory work up, imaging studies reviewed EKG personally reviewed by me normal sinus rhythm without acute ST-T wave changes, with ventricular rate 57, QTc 387 Previous records in the computer system reviewed Chest x-ray without acute findings [facility] Medical History (Updated 09/17/23 @ 19:54 by Merlin Escobar DO) Trochanteric bursitis 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 Renal insufficiency Asthma Myocardial infarction Lumbar back pain with radiculopathy affecting right lower extremity Hypothyroidism GERD (gastroesophageal reflux disease) DVT (deep venous thrombosis) DDD (degenerative disc disease), lumbar BPH (benign prostatic hyperplasia) Arthritis Anemia COVID-19 Acute encephalopathy Former smoker Diabetes type 2 Angina at rest Abdominal aneurysm Overweight Orthostatic hypotension Hypertension Hyperlipidemia CAD (coronary artery disease) Surgical History History of bladder repair surgery Hx of heart artery stent x6 Hx of tonsillectomy Hx of hand surgery right hand Hx of colonoscopy Family History Brother Legacy FamHx Relation: Brother(s); 80 yrs Father Diabetes 65 yrs Heart disease Mother 78 yrs Heart disease Social History Smoking Status: Former smoker Tobacco Type: cigarettes Substance Use Type: None Meds Medications and Allergies Allergies sitagliptin [Januvia] Allergy (Unknown, Verified 09/17/23 18:03) constipation / ineffective Home Medications aspirin 81 mg tablet,delayed release 1 tab PO QAM 04/06/17 [History Confirmed 09/17/23] carvedilol 3.125 mg tablet 1 tab PO BID 04/06/17 [History Confirmed 09/17/23] isosorbide mononitrate 30 mg tablet,extended release 24 hr 30 mg PO QAM 04/06/17[History Confirmed 09/17/23] montelukast 10 mg tablet (Singulair) 10 mg PO QPM 04/06/17 [History Confirmed 09/17/23] nitroglycerin 0.4 mg sublingual tablet (Nitrostat) 0.4 mg sublingual Q5-15M PRN Chest Pain 04/06/17 [History Confirmed 09/17/23] potassium gluconate 550 mg (90 mg) tablet 1 tab PO DAILY PRN Hypokalemia 04/06/17 [History Confirmed 09/17/23] atorvastatin 20 mg tablet 20 mg PO QHS 02/20/20 [History Confirmed 09/17/23] levothyroxine 50 mcg capsule 50 mcg PO QAM 07/11/23 [History Confirmed 09/17/23] lisinopril 5 mg tablet 5 mg PO QPM 07/11/23 [History Confirmed 09/17/23] metformin 1,000 mg tablet (Glucophage) 500 mg PO QAM 07/12/23 [History Confirmed 09/17/23] multivitamin 1 tab PO DAILY 07/12/23 [History Confirmed 09/17/23] glipizide 5 mg tablet, extended release 24 hr 5 mg PO QPM 07/29/23 [History Confirmed 09/17/23] vit C 250 mg-vit E 90 mg-zinc 40 mg-copper 1 bp-rmeydq-ewypyt capsule (PreserVision AREDS-2) 1 tab PO QAM 07/29/23 [History Confirmed 09/17/23] Exam Physical Exam Vital Signs: Temp Pulse Resp BP Pulse Ox O2 Del Method 36.9 C 55 L 18 104/58 L 98 Room Air 09/17/23 18:05 09/17/23 19:30 09/17/23 19:30 09/17/23 19:30 09/17/23 19:30 09/17/23 19:30 Results - Hospitalist H&P Lab Results Labs: Laboratory Last Values Corrected WBC 7.6 X10E3/uL (4.1-10.5) 09/17/23 18:20 Uncorrected WBC Count 7.6 x10E3/uL (4.1-10.5) 09/17/23 18:20 RBC 3.99 X10E6/uL (3.90-5.60) 09/17/23 18:20 Hgb 12.8 g/dL (13.0-17.0) L 09/17/23 18:20 Hct 37.7 % (38.8-50.0) L 09/17/23 18:20 MCV 94.4 fl (83.5-101) 09/17/23 18:20 MCH 31.9 pg (27.5-35.2) 09/17/23 18:20 MCHC 33.8 g/dL (32.5-35.6) 09/17/23 18:20 RDW 13.2 % (12.0-14.8) 09/17/23 18:20 Plt Count 118 x10E3/uL (150-450) L 09/17/23 18:20 MPV 8.2 fl (6.6-10.1) 09/17/23 18:20 Neut % (Auto) 73.2 % (.) 09/17/23 18:20 Lymph % (Auto) 16.3 % (.) 09/17/23 18:20 Alger % (Auto) 8.7 % (.) 09/17/23 18:20 Eos % (Auto) 1.0 % (.) 09/17/23 18:20 Baso % (Auto) 0.8 % (.) 09/17/23 18:20 Nucleat RBC Rel Count 0.1 /100 WBC (0-0.5) 09/17/23 18:20 Neut # (Auto) 5.5 x10E3/uL (1.8-7.7) 09/17/23 18:20 Lymph # (Auto) 1.2 x10E3/uL (1.00-4.8) 09/17/23 18:20 Alger # (Auto) 0.7 x10E3/uL (0.0-0.8) 09/17/23 18:20 Eos # (Auto) 0.1 x10E3/uL (0.0-0.45) 09/17/23 18:20 Baso # (Auto) 0.1 x10E3/uL (0.0-0.2) 09/17/23 18:20 Monocyte Dist Width 16.05 % (0.00-20.00) 09/17/23 18:20 PT 11.5 Seconds (9.0-12.9) 09/17/23 18:20 INR 1.0 09/17/23 18:20 APTT 27.6 Seconds (25.1-36.5) 09/17/23 18:20 PHA Creatinine Clear 33.36 09/17/23 18:20 Sodium 140 mmol/L (136-145) 09/17/23 18:20 Potassium 4.9 mmol/L (3.5-5.1) 09/17/23 18:20 Chloride 110 mmol/L (98-107) H 09/17/23 18:20 Carbon Dioxide 24.8 mmol/L (21.0-31.0) 09/17/23 18:20 Anion Gap 10.1 mEq/L (6.0-15.0) 09/17/23 18:20 BUN 43 mg/dL (7-25) H 09/17/23 18:20 Creatinine 1.56 mg/dL (0.70-1.30) H 09/17/23 18:20 Est GFR (CKD-EPI) 42.721 mL/Min 09/17/23 18:20 Glucose 135 mg/dL (70-100) H 09/17/23 18:20 Calcium 9.2 mg/dL (8.6-10.3) 09/17/23 18:20 Magnesium 1.7 mg/dL (1.9-2.7) L 09/17/23 18:20 Total Bilirubin 0.6 mg/dl (0.3-1.0) 09/17/23 18:20 Direct Bilirubin 0.10 mg/dL (0.03-0.18) 09/17/23 18:20 Indirect Bilirubin 0.5 mg/dL 09/17/23 18:20 AST 49 U/L (13-39) H 09/17/23 18:20 ALT 30 U/L (7-52) 09/17/23 18:20 Alkaline Phosphatase 88 U/L (34-104) 09/17/23 18:20 Total Creatine Kinase 72 U/L (30-223) 09/17/23 18:20 Troponin I High Sens 5.8 pg/mL (0.0-20.0) 09/17/23 18:20 B-Natriuretic Peptide 100.0 pg/mL (5-100) 09/17/23 18:20 Total Protein 5.9 gm/dL (6.4-8.9) L 09/17/23 18:20 Albumin 3.7 gm/dL (3.5-5.7) 09/17/23 18:20 Globulin 2.2 gm/dL 09/17/23 18:20 Albumin/Globulin Ratio 1.7 09/17/23 18:20 Lipase 71.0 U/L (11.0-82.0) 09/17/23 18:20 Assessment & Plan Assessment/Plan (1) Chest pain: Plan 1. Chest pain with underlying coronary artery disease, status post recent cardiac cath showing advanced coronary artery disease, followed by cardiothoracic surgeon in [facility], recommended against surgery, followed with Dr. Christopher, recommended medical management, presented with recurrent chest pain, EKG nonischemic, troponins x 1 negative Admitted to telemetry, repeat EKG in a.m., continue serial cardiac enzymes, consult cardiology Continue with Nitropaste 2. Diabetes mellitus type 2, add sliding scale 3. Chronic kidney disease stage III, Creatinine stable, patient appears slightly hypovolemic, I will administer 1 L of IV fluid 4. Hypomagnesemia, replaced IP vs OBS Justification Based on differential dx, clinical care plan, and risk of adverse events, if untreated, in my clinical judgement this patient requires an acute care setting as: INPATIENT because of an expectation of an over 2 midnight stay. Estimated length of stay (# of days): 2 Documented By: Ashley Griffiths MD 09/17/232031 Signed By: <Electronically signed by Ashley Griffiths MD> 09/17/232036 [facility] Work Phone: 1([phone]) 843-467004-30-2024 History of Present illness Narrative* Renny Christopher, DO - 09/13/2023 12:50 PM EDT Subjective Ever Mason is a 88 y.o. male Chief Complaint Follow-up 88-year-old gentleman returns and is seen in cardiology consultation at the request of Dr. Castillo and Dr. Martin for further consideration of percutaneous coronary interventions involving proximal circumflex and mid LAD. Patient underwent cardiac catheterization performed by myself this past year, was referred for consideration of CABG details of this cardiothoracic surgical note and consultation are reviewed. In short, patient is severe diffuse coronary artery disease with occluded RCA, diffuse severe disease of proximal circumflex, obtuse marginal branches and in- stent restenosis of the mid LAD with diffuse distal disease. Amazingly, the patient has no classic anginal complaints at this time or heart failure He is known to our service in the past with previous percutaneous coronary interventions involving the mid circumflex and mid LAD dating back several years, performed by myself now with progressive diffuse diabetic disease and branch vessel disease. Extensive conversation, informed decision-making process, risks, benefits and alternatives discussed with patient and today. Due to his lack of anginal symptomatology, heart failure and lack of arrhythmias, I would favor continued conservative management on current therapies and have been reviewed, and regular follow-up with general cardiology I will be happy to see him again in 6 months forfurther interventional assessment as well. If he should clinically progressed to unstable symptomatology or develops ACS and is hospitalized we then could consider high risk coronary interventions of the proximal circumflex and mid LAD. Review of Systems All other systems reviewed and are negative. Vitals: 09/13/23 1248 BP: 82/58 BP Location: Right arm Patient Position: Sitting Pulse: 60 Weight: 78 kg (172 lb) Height: 1.753 m (5' 9 ) Objective Physical Exam Constitutional: Appearance: Normal appearance. HENT: Nose: Nose normal. Neck: Vascular: No carotid bruit. Cardiovascular: Rate and Rhythm: Normal rate. Pulses: Normal pulses. Heart sounds: Normal heart sounds. Pulmonary: Effort: Pulmonary effort is normal. Abdominal: [...] no known allergies. Current Medications Current Outpatient Medications: aspirin 81 mg EC tablet, Take 1 tablet (81 mg) by mouth once daily., Disp: , Rfl: atorvastatin (Lipitor) 20 mg tablet, TAKE 1 TABLET BY MOUTH DAILY AT BEDTIME, Disp: 90 tablet, Rfl:3 carvedilol (Coreg) 3.125 mg tablet, TAKE 1 TABLET BY MOUTH TWICE DAILY WITH MEALS, Disp: 180 tablet, Rfl: 3 glipiZIDE XL (Glucotrol XL) 5 mg 24 hr tablet, Take 1 tablet (5 mg) by mouth once daily., Disp: , Rfl: isosorbide mononitrate ER (Imdur) 30 mg 24 hr tablet, Take 1 tablet (30 mg) by mouth once daily., Disp: , Rfl: levothyroxine (Synthroid, Levoxyl) 50 mcg tablet, Take 1 tablet (50 mcg) by mouth once daily in themorning. Take before meals., Disp: , Rfl: lisinopril 5 mg tablet, Take 1 tablet (5 mg) by mouth once daily., Disp: , Rfl: metFORMIN (Glucophage) 500 mg tablet, Take 1 tablet (500 mg) by mouth 2 times a day with meals., Disp: , Rfl: montelukast (Singulair) 10 mg tablet, Take 1 tablet (10 mg) by mouth once daily., Disp: , Rfl: nitroglycerin (Nitrostat) 0.4 mg SL tablet, Place 1 tablet (0.4 mg) under the tongue every 5 minutes if needed for chest pain., Disp: , Rfl: Assessment/Plan 1. ASHD (arteriosclerotic heart disease) 2. Type 2 diabetes mellitus with other specified complication, without long-term current use of insulin (Multi) 3. Hyperlipidemia, unspecified hyperlipidemia type 4. BMI 25.0-25.9,adult 5. Former smoker Scribe Attestation By signing my name below, I, Beto Montalvo LPNibwestley attest that this documentation has been prepared under the direction and in the presence of Michelle Christopher DO. Provider Attestation - Scribe documentation All medical record entries made by the Scribe were at my direction and personally dictated by me. Ihave reviewed the chart and agree that the record accurately reflects my personal performance of the history, physical exam, discussion and plan. [facility] Work Phone: [phone]) 616-517604-30-2024 Instructions* Patient Instructions* Keny Millan MA - 09/13/2023 12:50 PM EDT Please bring all medicines, vitamins, and herbal supplements with you when you come to the office. Prescriptions will not be filled unless you are compliant with your follow up appointments or have a follow up appointment scheduled as per instruction of your physician. Refills should be requested at the time of your visit. documented in this encounterOhio[facility] Work Phone: [phone]) 518-690104-09-2024 History of Present illness Narrative* Mac Castillo MD, MS - 08/23/2023 4:00 PM EDT Chief Complaint Cardiac disease assessment HPI: Mr. Ever Mason is an 88 y.o. male, who is a patient of Dr.Brett Wilton Singh, DO I have been asked to see him by Dr. Javed Christopher and Mayra Person to evaluate options for his coronary artery disease. Ever Mason was seen in the clinic at [facility], accompanied by his and daughter. His daughter is a nurse and quite knowledgeable. He is referred with a diagnosis of coronary artery disease, having undergone multiple previous PCI procedures in the past. His recent coronary angiogram was feltto have some options for PCI but there was a feeling that he should be assessed surgically to determine the best option. He appears to be his age, he is mildly frail, slightly unstable with his gait when walking from the exam room to the waiting room. He states that his main issue is being fatiguedand tired especially in the morning. He has no significant chest pain or chest tightness. He statesthat he has no significant shortness of breath although his family states that he will have some shortness of breath with exertion. He has had perhaps a mild amount of memory loss, but on most days is quite good. He continues to drive a car. He appears to be only mildly active. His medical history is significant for diabetes, a DVT. He has had a previous abdominal aortic stent graft. He has risk factors that also include dyslipidemia and hypertension. He has had multiple previous PCI procedures. Past Surgical History: Procedure Laterality Date OTHER SURGICAL HISTORY 01/30/2021 Complete colonoscopy OTHER SURGICAL HISTORY 01/30/2021 Hand surgery OTHER SURGICAL HISTORY 01/30/2021 Abdominal aortic aneurysm repair OTHER SURGICAL HISTORY 01/30/2021 Tonsillectomy OTHER SURGICAL HISTORY 02/10/2022 Insertion of prostatic urethral lift implant No family history on file. Social History Socioeconomic History Marital status: Spouse name: Not on file Number of children: Not on file Years of education: Not on file Highest education level: Not on file Occupational History Not on file Tobacco Use Smoking status: Former Types: Cigarettes Passive exposure: Past Smokeless tobacco: Never Substance and Sexual Activity Alcohol use: Not Currently Drug use: Never Sexual activity: Not on file Other Topics Concern Not on file Social History Narrative Not on file Social Determinants of Health Financial Resource Strain: Not on file Food Insecurity: Not on file Transportation Needs: Not on file Physical Activity: Not on file Stress: Not on file Social Connections: Not on file Intimate Partner Violence: Not on file Housing Stability: Not on file No Known Allergies Outpatient Encounter Medications as of 08/23/2023 Medication Sig Dispense Refill aspirin 81 mg EC tablet Take 1 tablet (81 mg) by mouth once daily. atorvastatin (Lipitor) 20 mg tablet TAKE 1 TABLET BY MOUTH DAILY AT BEDTIME 90 tablet 3 atorvastatin (Lipitor) 20 mg tablet Take 1 tablet (20 mg) by mouth once daily at bedtime. carvedilol (Coreg) 3.125 mg tablet TAKE 1 TABLET BY MOUTH TWICE DAILY WITH MEALS 180 tablet 3 carvedilol (Coreg) 3.125 mg tablet Take 1 tablet (3.125 mg) by mouth 2 times a day with meals. glipiZIDE XL (Glucotrol XL) 5 mg 24 hr tablet Take 1 tablet (5 mg) by mouth once daily. isosorbide mononitrate ER (Imdur) 30 mg 24 hr tablet Take 1 tablet (30 mg) by mouth once daily. levothyroxine (Synthroid, Levoxyl) 50 mcg tablet Take 1 tablet (50 mcg) by mouth once daily in the morning. Take before meals. lisinopril 5 mg tablet Take 1 tablet (5 mg) by mouth once daily. metFORMIN (Glucophage) 1,000 mg tablet Take 1 tablet (1,000 mg) by mouth see administration instructions. Take one tablet in the am and 1/2 tablet in the pm montelukast (Singulair) 10 mg tablet Take 1 tablet (10 mg) by mouth once daily. nitroglycerin (Nitrostat) 0.[address] 1 tablet (0.4 mg) under the tongue every 5 minutesif needed for chest pain. No facility-administered encounter medications on file as of 08/23/2023. Physical Exam Constitutional: Appearance: Normal appearance. Cardiovascular: Rate and Rhythm: Normal rate and regular rhythm. Pulses: Normal pulses. Heart sounds: No murmur heard. Pulmonary: Effort: Pulmonary effort is normal. Breath sounds: Normal breath sounds. Abdominal: Palpations: Abdomen is soft. Skin: General: Skin is warm and dry. Neurological: General: No focal deficit present. Mental Status: He is alert. Mental status is at baseline. Psychiatric: Mood and Affect: Mood normal. Behavior: Behavior normal. No results found for this or any previous visit (from the past 4464 hour(s)). No results found for: WBC , HGB , HCT , MCV , PLT No results found for: GLUCOSE , CALCIUM , NA , K , CO2 , CL , BUN , CREATININE No echocardiogram results found for the past 12 months Assessment and Plan: Mr. Ever Mason is an 88 y.o. male who has been referred with diffuse three- vessel coronary artery disease. I had a chance to review all available, pertinent investigations. My interpretation of these studies is as follows: His angiogram shows extensive three-vessel disease. There are significant lesions in all major coronary arteries. From a surgical perspective he does have targets to the LAD although this would need to be quite distal, the OM1 and the PDA. The OM 2 is possibly graftable but is quite diffusely diseased. Based on a review of his symptoms and investigations, and the overall patient's status, I am concerned about offering him an option of surgical revascularization. I believe the operation is technically feasible although we have not properly assess his ascending aorta. Having said that I am worried a bout his element of frailty, some element of cognitive difficulty and memory loss, and whether surgery would provide him with a reasonable benefit. I do not have any major concerns with the operationitself, but I am concerned about his ability to fully recover and to gain any meaningful benefit from CABG surgery. When looking at the risk versus benefit ratio, not sure that the benefits of surgery outweigh the risks. The risk specifically would include a chance that he never regained his independence and is unable to return to a normal level of function. I will reach out to Dr. Christopher. It appears that he has options for PCI and I believe that given his overall health status that if this is technically feasible, we would be preferable to CABG surgery. His family appear to be very understanding, especially his daughter who is in the medical field. Ihave not planned a return visit for this patient but would be happy to reassess him, especially if PCI is not feasible option especially if he develops worsening symptoms. documented in this [facility] Work Phone: [phone]) 233-342603-19-2024 Discharge summary Author Joie Christopher [facility] 2023 4:20pm Note Date/Time 2023 2:4 7pm [facility] [address] [place] [address] Discharge Summary Signed Patient: Ever Mason MR#: [id number] : 1935 Acct:[id number] Age/Sex: 87 / M Adm Date: 4 Loc: CL Room: Attending Dr: Joie Christopher DO Copies to: DO Joie Sims DO~ Providers Date of Discharge: 08/02/23 Discharging Provider: Joie Christopher Primary Care Provider: Justice Singh Discharge Diagnosis (1) CAD (coronary artery disease): (2) AAA (abdominal aortic aneurysm): (3) Diabetes: (4) Hyperlipidemia: (5) Hypertension: (6) Abnormal cardiovascular stress test: Final Diagnosis Final Discharge Diagnosis: Abnormal stress perfusion imaging Diffuse three-vessel ASHD with preserved LV function Summary Hospital Course Hospital course: 87-year-old gentleman for outpatient elective cardiac catheterization at the request of Dr. Martin due to abnormal stress perfusion imaging and symptoms of class II angina. Patient has extensive history of coronary artery disease, previous revascularizations of the RCA, LAD and circumflex in the remote past; and abdominal aortic stent graft intervention remotely. He has known history of chronic occlusion of the entire RCA. Last heart catheterization 2017 reviewed today and compared to today's cardiac catheterization Stress perfusion imaging revealed small inferior ischemia with preserved LV function Catheterization revealed severe three-vessel ASHD involving proximal circumflex (new), restenotic mid LAD (new); and chronic 90 to 95% stenotic disease of the first diagonal branch, second and first obtuse marginal branches and chronic occlusion of the RCA with preserved LV function Initial recommendations are to proceed with medical therapy with consideration for second opinion from cardiothoracic surgery for CABG versus PCI proximal circumflex and mid LAD as default plan Condition Condition at Discharge: Stable Status at Discharge Functional status at discharge: independent ambulation Overall status at discharge: patient is back to baseline Time Spent with Patient Time spent providing/coordinating discharge services (# min): 20 Surgeries and Procedures Operation Date: 08/02/23 13:15 Actual Procedures p CL LHC & COR Angio - Joie Christopher DO Complications Complications: None Exam Physical Exam Vital Signs: Temp Pulse Resp BP Pulse Ox O2 Del Method 97.1 F L 57 L 20 116/69 98 Room Air 08/02/23 09:35 08/02/23 09:35 08/02/23 09:35 08/02/23 09:35 08/02/23 09:35 08/02/23 09:35 Discharge Plan Discharge Plan Patient Disposition: Home Diet: Low-Cholesterol Additional Instructions: 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 1. You were given conscious sedation. Do not operate a vehicle, power tools, make important decisions, or drink alcohol for 24 hours. You might be drowsy orlight headed. Return to the Emergency Room if you have trouble breathing, walking or nausea and vomiting. 2. FOR BLEEDING: Apply continuous pressure to the site and call 911. 3. Operative Site Care: Keep the dressing clean and dry. You may change the dressing only if soiled or wet. You may remove the dressing the following morning. You may wash over the puncture site in the shower. If the puncture site is at the wrist no soaking for 3 days. Some bruising or slight swelling may be present. -Signs of infection are redness, warmth, swelling, getting more sore, colored drainage, fever or chills. -Should the arm or leg become cold, numb, blue or white, call the roll grinder immediately. 4. ACTIVITY: You are advised to go directly home from the hospital. Restrict your activities for the rest of the day. Resume light or normal activities tomorrow. Do not engage in any activity that will stress the puncture site. Avoid heavy lifting (over 15 lbs.), straining or bending at the catheter site for 48 hours after discharge. If the puncture site is at the wrist do not manipulate wrist for 24 hours and no lifting more than 3 lbs for 3 days. 5. DIET:You may eat your regular diet when you desire. 6. MEDICATIONS: Resume your daily prescription schedule. Prescriptions may be sent with you if needed. Use as directed. When taking pain medications, you may experience dizziness or drowsiness. Do not drink alcohol or drive when taking pain medications. 7. If you should experience episodes of angina e.g. chest discomfort, heaviness, tightness, pressure, burning, with or without radiation to the neck, jaws, arms, or back- Use 1 Nitrostat under your tongue every 5-10 minutes, and up to 3 tablets. If no relief- Call 911 and go to the nearest Emergency Room. -Notify the office for recurrent angina, chest pain or other concerns. You may NOT drive yourself home! Follow the medication instructions provided on your discharge. If the dosages and instructions on this sheet differ from the dosage and instructions on the bottle, follow the instructions on the bottle. [facility] is not responsible for incorrect prescription information provided by thepatient during their visit. Do not stop your medications without consulting your health care provider. Please take the list with you to your next doctor's appointment. Prescriptions: Continued aspirin 81 mg Tablet,Delayed Release (Dr/Ec) 1 tab PO QAM carvedilol 3.125 mg Tablet 1 tab PO BID isosorbide mononitrate 30 mg Tablet Extended Release 24 Hr 30 mg PO QAM nitroglycerin [Nitrostat] 0.4 mg Tablet, Sublingual 0.4 mg SUBLINGUAL Q5-15M PRN (Reason: Chest Pain) potassium gluconate 550 mg (90 mg) Tablet 1 tab PO DAILY PRN (Reason: Hypokalemia) montelukast [Singulair] 10 mg Tablet 10 mg PO QPM metformin [Glucophage] 1,000 mg tablet 500 mg PO QAM atorvastatin 20 mg tablet 20 mg PO QHS Patient Comments: TAKE 1 TABLET BY MOUTH ONCE DAILY PreserVision AREDS-2 250-90-40-1 mg capsule 1 tab PO QAM glipizide 5 mg Tablet Extended Release 24 Hr 5 mg PO QPM levothyroxine 50 mcg capsule 50 mcg PO QAM lisinopril 5 mg tablet 5 mg PO QPM multivitamin Tablet 1 tab PO DAILY Follow Up: Justice Singh DO [Primary Care Provider] - Winnie Martin MD [Active Staff] - Documented By: Joie Christopher DO 08/02/23 1449 Signed By: <Electronically signed by Joie Christopher DO> 08/02/23 1620 [facility] Work Phone: [phone]) 604-321003-19-2024 [facility]* Encounter Date Diagnosis Assessment Notes Treatment Notes Treatment Clinical Notes 12 Feb, 2024 Calculus of gallbladder with cholecystitis without biliary obstruction, unspecified cholecystitis acuity (ICD-10 - K80.10) Live ultrasound noted cholelithiasis. Borderline prominence of the common bile duct without intrahepatic biliary ductal dilatation. No visible proximal common bile duct stone with ultrasound. Continued concern for biliary obstruction may be further assessed with MRCP. I advised the patient if the pain persist, we will have to refer over to general surgery. Jun, Elevated liver enzymes (ICD-10 - R74.8) Blood work results reviewed with the patient. Liver enzymes are now WNL upon recheck. Hepatitis panel was negative. The liver ultrasound noted borderline prominence of the common bile duct without intrahepatic biliary ductal dilatation. No visible proximal common bile duct stone with ultrasound. Continued concern for biliary obstruction may be further assessed with MRCP. Jun, CAD (coronary artery disease) (ICD-10 - I25.10) Patient has voiced interest in [facility] roll grinder. He currently is seeing Dr. Person but is interested in seeing a on license of [facility] roll grinder. I am agreeable to refer the patient over. Jun, Type 2 diabetes mellitus (ICD-10 - E11.9) Last A1C reading was 8.2. I advised the patient to continue with the above medication regimen. I will provide the patient with some samples of the Wear Innsuvia along with a prescription to check on coverage. Jun, Raynaud phenomenon (ICD-10 - I73.00) Noted upon examination. Patient reports this not being bothersome. I would recommend the patient bring this up to the new roll grinder. [employer] Other 01-22-2024 Evaluation note* Encounter Date Diagnosis Assessment Notes Treatment Notes Treatment Clinical Notes May, Hypothyroidism, unspecified type (ICD-10 - E03.9) [employer] Other 01-11-2024 Evaluation note* Encounter Date Diagnosis Assessment Notes Treatment Notes Treatment Clinical Notes May, Medicare annual wellness visit, subsequent (ICD-10 - Z00.00) Personalized health advice was given to the beneficiary including a written plan for screenings discussed and provided. Advanced care planning reviewed and/or information given as requested. The above visit was performed by [ Sushila Taylor LPN], under direct supervision of [Justice Singh DO ]. Document reviewed and amended by provider signed below. May, Hyperlipidemia (ICD-10 - E78.5) Cholesterol has increased somewhat compared to previous findings, continues to be within normal range. Kidney functions are stable with no signs of anemia or leukemia. Liver enzymes are elevated. May, CAD (coronary artery disease) (ICD-10 - I25.10) The patient encouraged to continue following with roll grinder as scheuduled. May, Type 2 diabetes mellitus (ICD-10 - E11.9) Glucose is 165 with a hgb a1c of 8.2 ,up from 7.4. The patinet has recieved lumbar injection 04/20/23 and states he went off one of his medications during that time. Discussion was had the steroid could be contributing to the a1c elevation. High dose of Metformin causes GI upset of diarrhea, therefore suggest the patient add Januvia to his regimen , samples, instructions, positive and negative side effects reviewed. We will continue to monitor. May, Hypothyroidism, unspecified type (ICD-10 - E03.9) TSH findings are within normal range. Pt is to continue with the above medication and we will continue to monitor. May, Elevated liver enzymes (ICD-10 - R74.8) Liver enymes are elevated upon review of blood work results. The patient denies abdominal pain, denies medicaiton changes. Addtional blood work and a liver ultrasound recommended and ordered. 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 Recent MRI results show evidence of spinal stenosis and disc bulge at L5-S1, possible mass effect at S1 and symptoms consistent with a radiculopathy. I agree with neurosurgerys recommendations; based on MRI results, as well as location of pain and exam findings, patient is a candidate for a right lumbar transforaminal epidural steroid injection which we will proceed with. Risks and benefits of procedure explained to patient; patient verbalizes understanding. Anatomy of spine discussed in detail with patient in regards to patients condition. Mar, Lumbar back pain with radiculopathy affecting right lower extremity (ICD-10 - M54.16) Mar, Chronic pain (ICD-10 - G89.29) Mar, Other Above note writ ten by Mario Mora MA, [employer]. Edited and approved by Dr. Mercedes Davis MD. Medical decision making shows a new problem to me with further workup planned or suggested with the potential for extensive treatment options that were considered with the most applicable given this patient's situation as noted above. Treatment options considered include a combination of physical therapy approaches, pharmacologic management, and interventional procedures. Those most applicable to the patient were discussed at this time. Risk of complications and/or morbidity and mortality is high given that acute and chronic pain poses a threat to life and bodily function if undertreated, poorly treated or with failure to maintain adequate treatment and timely followup. Given the serious and fluctuating nature of pain with extensive consideration for whenever pain changes, there always remains the possibility of prolonged functional impairment requiring constant patient reassessment and high-level medical decision making. The amount and complexity of data reviewed is high given that patient labs, radiology reports, and other test were obtained, reviewed and summarized as applicable from the physician portal and/or outside medical records. Pertinent positive and negative findings were considered in medical decision-making. [employer] Other 11-09-2023 Evaluation note* Encounter Date Diagnosis Assessment Notes Treatment Notes Treatment Clinical Notes Mar, Lumbar radiculopathy (ICD-10 - M54.16) I independently reviewed the MRI of the lumbar spine and the report.The patient has a right lateral recess stenosis L5-S1 that may be affecting the right S1 nerve root. I think this patient is obviously got an S1 radiculopathy but he is not particularly severe I like to try conservative care especially with this patient being 87 years old I think an epidural and/or transforaminal injection L5-S1 on the right may be beneficial if that helps his symptoms I do not think surgical intervention will be needed. Patient understands agrees with that plan. I will follow-up with him at the end of April. Mar, Lumbar stenosis without neurogenic claudication (ICD-10 - M48.061) [employer] Other 10-04-2023 Evaluation note* Encounter Date Diagnosis Assessment Notes Treatment Notes Treatment Clinical Notes Feb, Lumbar back pain with radiculopathy affecting right lower extremity (ICD-10 - M54.16) The patient reports he has gained some strength following physical therapy, he has been able to stop using his cane for ambulation, he also feels wearing a knee brace provides stability. Neurosurgeon referral initiated today. 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 I recommend the patient consult with neurosurgeon, in my opinion he is not a likely surgical candidate but may benefit from epidural injections. The patient was in agreement, a referral was initiated. 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 The patient encouraged to continue following with vascular as scheduled. Feb, Hyperlipidemia (ICD-10 - E78.5) Pt is to continue with the above medication and continue watching their diet and increase their exercise regimen. Feb, Type 2 diabetes mellitus (ICD-10 - E11.9) Pt is to continue with the above medication and continue watching their diet and increase their exercise regimen. Blood work ordered to be collected in three months. [employer] Other 09-19-2023 Evaluation note* Encounter Date Diagnosis Assessment Notes Treatment Notes Treatment Clinical Notes Jan, Lumbar radiculopathy (ICD-10 - M54.16) The patient encouraged following through with his lumbar MRI as scheduled next week. Patient continues to complain of pain that radiates down the right leg also complains of sciatic buttock pain after physical therapy. The patient encouraged to continue wearing his knee brace if this is bringing some relief and continue ambulating with his cane. Patient is to return to the office following his MRI. Jan, Type 2 diabetes mellitus (ICD-10 - E11.9) In house Hgb a1c ordered and reviewed today resulting at 6.6. Previous hgb a1c four months ago was 7.4. Pt is to continue with the above medication and continue watching their diet and increase their exercise regimen. [employer] Other 09-11-2023 Evaluation note* Encounter Date Diagnosis Assessment Notes Treatment Notes Treatment Clinical Notes Jan, Hypothyroidism, unspecified type (ICD-10 - E03.9) Jan, Hyperlipidemia (ICD-10 - E78.5) Jan, Type 2 diabetes mellitus (ICD-10 - E11.9) [employer] Other 09-05-2023 Evaluation note* Encounter Date Diagnosis Assessment Notes Treatment Notes Treatment Clinical Notes Jan, Lumbar radiculopathy (ICD-10 - M54.16) Pt does voice his pain radiates down into his right leg. Reflexes are normal, and his range of motion and strength are normal and equal bilaterally, He does voice calf pain with toe raises. I do think pt would benefit significantly from an injection, but he needs an MRI first. We will order this today, and hope this gets approved for him. Pt reports the Sue back and body does help some. He does continue to do PT. 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 Jan, Primary osteoarthritis of right knee (ICD-10 - M17.11) Pt states he does use a knee brace around the house. I advised he can continue with this, but advised he needs to take it off while he is sleeping or sitting for long perioids. 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 Right iliac 1.9 cm, left iliac 1.5 cm. This is stable with ultrasound 6 months ago. I did have Dr. Macias review these results in Dr. Grissom's absence. Comparison was made to previous CT a year ago by Dr. Macias. Discussed with patient recommendation for continued close surveillance with repeat ultrasound studies in 6 months. [employer] Other 08-14-2023 Evaluation note* Encounter Date Diagnosis Assessment Notes Treatment Notes Treatment Clinical Notes Dec, Lumbar radiculopathy (ICD-10 - M54.16) Patient has responded to the Medrol dose pack. Pain has improved but is still present somewhat. Xray did reveal moderate amount of DDD. I am ordering physical therapy. I may need to get MRI pending therapy outcome. Dec, Pain of right lower extremity (ICD-10 - M79.604) Venous ultrasound of the right lower extremity did not reveal any DVT. 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 This is moderate. He did improve with the pain with use of the steroids but I have to take caution with this due to the DM. At this time I would like to try some physical therapy. Order has been provided. He may need MRI at some point if this is not beneficial. Dec, Primary osteoarthritis of right hip (ICD-10 - M16.11) Xray did reveal osteoarthritis of the right hip. Medrol did help. I am ordering some physical therapy. He is to continue with use of cane for safety with ambulation Dec, Primary osteoarthritis of right knee (ICD-10 - M17.11) RIght knee osteoarthritis revealed on imaging. I am ordering physical therapy today. He is to continue with use of cane to assist with ambulation Dec, Type 2 diabetes mellitus (ICD-10 - E11.9) Encouraged to continue with current meds and monitor home glucose [employer] Other 08-08-2023 Evaluation note* Encounter Date Diagnosis Assessment Notes Treatment Notes Treatment Clinical Notes Dec, Lumbar radiculopathy (ICD-10 - M54.16) Patient reports a 2 week onset of right lower lumbar radiculopathy. Pain and weakness down the right lower extremity down past the calf. States has significiant pain behind the right knee. I am going to get some imaging done to rule out compression fracture. I will provide him with a shot in office today to help with the pain and give him some steroids to help with inflammation. He is cautioned this will cause elevation of glucose. Toradol 60 mg IM provided. Medrol Dose Pack take as directed Dec, Acute pain of right knee (ICD-10 - M25.561) Acute right knee pain. Pain is primarily posterior. Xray ordered Dec, Right hip pain (ICD-10 - M25.551) Right hip pain sudden onset. He is using a cane for mobility. Xray ordered Dec, Pain of right lower extremity (ICD-10 - M79.604) Pain specifically behind the right knee. I need to rule out DVT and I will order venous US of the right lower extremity stat. Hopefully they can get this done by tomorrow at the latest [employer] Other 07-28-2023 Evaluation note* Encounter Date Diagnosis Assessment Notes Treatment Notes Treatment Clinical Notes Nov, Other asthma (ICD-10 - J45.998) Nov, Type 2 diabetes mellitus (ICD-10 - E11.9) [employer] [facility] Other 07-05-2023 Evaluation note* Encounter Date Diagnosis Assessment Notes Treatment Notes Treatment Clinical Notes Nov, Type 2 diabetes mellitus (ICD-10 - E11.9) [employer] Other 04-20-2023 Evaluation note* Encounter Date Diagnosis Assessment Notes Treatment Notes Treatment Clinical Notes Aug, Left shoulder pain (ICD-10 - M25.512) The patient states two sessions of physical therapy and massage of the upper arm has significantly improved his pain. Upon examination range of motion and strength has improved .Complains pain returns if he forgets and lays and on the left side. I encourge the patient to continue physical therapy and avoid lifting. [employer] Other 03-20-2023 Evaluation note* Encounter Date Diagnosis Assessment Notes Treatment Notes Treatment Clinical Notes Jul, Left shoulder pain (ICD-10 - M25.512) Reviewed XR results with the patient. Noted there is osteopenia. There is no evidence of fracture or dislocation. There is mild to moderate degenerative change at the acromioclavicular joint where a bony ossicle is seen superiorly. This was also present on the prior chest x-ray. There are no significant soft tissue abnormalities. Upon examination the patient voiced no pain upon stretching. Therefore, I do recommend patient start physical therapy or have a consult with an orthopedic. Patient is agreeable to try physcial therapy. Patient is to take two aleve with an extra strength tylenol twice a day as needed for pain. Order provided. Jul, Contusion of axillary region, left (ICD-10 - S40.022A) Noted upon examinati on. voiced this appeared out of no where after his last appointment. Denied any injury. The only blood thinner the patient is taking a baby aspirin. 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 Jul, Left shoulder pain (ICD-10 - M25.512) Upon examination the rotator cuff appears to be intact with good range of motion and strength. X-ray imaging recommend and ordered since he heard a pop to rule out abnormalites. The patient encouraged to continue topical Voltaren Gel and alternate this with Aspercream. Pending imaging results we may consider physical therapy. Jul, CAD (coronary artery disease) (ICD-10 - I25.10) The patients spouse states the patient's blood pressure has been going up ever since the cardioloigst stopped Lisinopril . I recommend he restart Lisinopril if tolerated. If dizziness returns pt instructed to stop the Lisinopril. Spouse and pt voice understanding. [employer] Other 02-28-2023 Evaluation note* Encounter Date Diagnosis Assessment Notes Treatment Notes Treatment Clinical Notes Jun, Abdominal aortic aneurysm (AAA) without rupture, unspecified part (ICD-10 - I71.40) We reviewed today's abdominal ultrasound which remained stable with no evident endoleak. His sac size is stable when compared to 6 months ago at 7.0 cm in greatest diameter. There is no evidence of endoleak. This was reviewed by Dr. Buehrer in the office today. We will continue to follow him along on 6-month intervals going forward. [employer] Other 02-08-2023 Evaluation note* Encounter Date Diagnosis Assessment Notes Treatment Notes Treatment Clinical Notes Jun, Type 2 diabetes mellitus (ICD-10 - E11.9) [employer] [facility] Other 01-12-2023 Evaluation note* Encounter Date Diagnosis Assessment Notes Treatment Notes Treatment Clinical Notes May, Type 2 diabetes mellitus (ICD-10 - E11.9) Review of blood work results with the patient, glucose is 100 with a hgb a1c of 7.6 up from 6.9 three months ago. Home findings run from 90s- 130's per patient. Metformin was decreased at his last visit due to GI upset of diarrhea. The patient does Pt is to continue with the above medication and continue watching their diet and increase their exercise regimen. May, Anemia, unspecified type (ICD-10 - D64.9) Hemoglobin has improved upon review of blood work results with a normal ferritin level. We will continue to monitor. May, Urinary incontinence (ICD-10 - R32) An UroLift was performed in 2020 by , patient states he has no control over his bladder and continues to wear underpads, per patient he has been discharged from urology as he was advised there is nothing further they can do. The patient advised the medication that is available to treat urinary incontinence can cause hypotension, therefore he would not be a candidate. I did offer a referral to a different urologist for a second opinion, the patient declined at this time. We will continue to monitor. May, Hyperlipidemia (ICD-10 - E78.5) Pt is to continue with the above medication and continue watching their diet and increase their exercise regimen. May, CAD (coronary artery disease) (ICD-10 - I25.10) Discussion was had regarding the above medication keeping is blood pressure low to reduce the pressure on his cardiovascular system. The patient does report experiencing lightheadedness at times, I advised this is likely due to orthostatic positional changes occurring. I recommend he changes position slowly,stay hydrated and report symptoms to his roll grinder with regard to possible medication adjustments. [employer] Other 10-13-2022 Evaluation note* Encounter Date Diagnosis Assessment Notes Treatment Notes Treatment Clinical Notes Feb, Hyperlipidemia (ICD-10 - E78.5) Review of pt's blood work today which reveals no signs of leukemia or infection. Liver and thyroid functions are within normal limits, as well as electrolytes. Pt's cholesterol has improved and is well controlled on the above medication, therefore he is to continue this, and continue watching his diet and increase his exercise regimen. Feb, CAD (coronary artery disease) (ICD-10 - I25.10) Review of pt's community outreach screenings, which were normal. He is to continue with cardiology and continue the above medications. Feb, Type 2 diabetes mellitus (ICD-10 - E11.9) Review of pt's a1c which is 6.9, improved from his last reading of 7.0. states pt has been experiencing frequent diarrhea. I advised this is likely from the above metformin, therefore I encouraged him to decrease his dosage. I recommended he cut his pills in half and only take half a day to see if this improves his symptoms. Pt is to continue with the above medication and continue watching their diet and increase their exercise regimen. Feb, Hypothyroidism, unspecified type (ICD-10 - E03.9) Pt's thyroid function is within normal limits, therefore he is to continue the above medication, and we will continue to monitor. Feb, Anemia, unspecified type (ICD-10 - D64.9) Review of blood work today. I did order the above labs to re-evaluate this in two months. We will continue to monitor. Feb, Fatigue (ICD-10 - R53.83) [employer] [facility] Other 09-01-2022 Evaluation note* Encounter Date Diagnosis Assessment Notes Treatment Notes Treatment Clinical Notes Jan, Hypothyroidism, unspecified type (ICD-10 - E03.9) [facility] [facility] Other 08-15-2022 Hospital Discharge instructions Patient Education 12/28/2021 12:10:09 Benign Prostatic Hyperplasia Benign Prostatic Hyperplasia Benign prostatic hyperplasia (BPH) is an enlarged prostate gland that is caused by the normal agingprocess and not by cancer. The prostate is a walnut-sized gland that is involved in the production of semen. It is located in front of the rectum and below the bladder. The bladder stores urine and the urethra is the tube that carries the urine out of the body. The prostate may get bigger as a man gets older. An enlarged prostate can press on the urethra. This can make it harder to pass urine. The build-up of urine in the bladder can cause infection. Back pressure and infection may progress to bladder damage and kidney (renal) failure. What are the causes? This condition is part of a normal aging process. However, not all men develop problems from this condition. If the prostate enlarges away from the urethra, urine flow will not be blocked. If it enlarges toward the urethra and compresses it, there will be problems passing urine. What increases the risk? This condition is more likely to develop in men over the age of 50 years. What are the signs or symptoms? Symptoms of this condition include: Getting up often during the night to urinate. Needing to urinate frequently during the day. Difficulty starting urine flow. Decrease in size and strength of your urine stream. Leaking (dribbling) after urinating. Inability to pass urine. This needs immediate treatment. Inability to completely empty your bladder. Pain when you pass urine. This is more common if there is also an infection. Urinary tract infection (UTI). How is this diagnosed? This condition is diagnosed based on your medical history, a physical exam, and your symptoms. Tests will also be done, such as: A post-void bladder scan. This measures any amount of urine that may remain in your bladder after you finish urinating. A digital rectal exam. In a rectal exam, your health care provider checks your prostate by putting a lubricated, gloved finger into your rectum to feel the back of your prostate gland. This exam detects the size of your gland and any abnormal lumps or growths. An exam of your urine (urinalysis). A prostate specific antigen (PSA) screening. This is a blood test used to screen for prostate cancer. An ultrasound. This test uses sound waves to electronically produce a picture of your prostate gland. Your health care provider may refer you to a specialist in kidney and prostate diseases (urologist). How is this treated? Once symptoms begin, your health care provider will monitor your condition (active surveillance or watchful waiting). Treatment for this condition will depend on the severity of your condition. Treatment may include: Observation and yearly exams. This may be the only treatment needed if your condition and symptoms are mild. Medicines to relieve your symptoms, including: ?Medicines to shrink the prostate. ?Medicines to relax the muscle of the prostate. Surgery in severe cases. Surgery may include: ?Prostatectomy. In this procedure, the prostate tissue is removed completely through an open incision or with a laparoscope or robotics. ?Transurethral resection of the prostate (TURP). In this procedure, a tool is inserted through the opening at the tip of the penis (urethra). It is used to cut away tissue of the inner core of the prostate. The pieces are removed through the same opening of the penis. This removes the blockage. ?Transurethral incision (TUIP). In this procedure, small cuts are made in the prostate. This lessens the prostate's pressure on the urethra. ?Transurethral microwave thermotherapy (TUMT). This procedure uses microwaves to create heat. The heat destroys and removes a small amount of prostate tissue. ?Transurethral needle ablation (TUNA). This procedure uses radio frequencies to destroy and remove a small amount of prostate tissue. ?Interstitial laser coagulation (ILC). This procedure uses a laser to destroy and remove a small amount of prostate tissue. ?Transurethral electrovaporization (TUVP). This procedure uses electrodes to destroy and remove a small amount of prostate tissue. ?Prostatic urethral lift. This procedure inserts an implant to push the lobes of the prostate away from the urethra. Follow these instructions at home: Take [id number] and prescription medicines only as told by your health care provider. Monitor your symptoms for any changes. Contact your health care provider with any changes. Avoid drinking large amounts of liquid before going to bed or out in public. Avoid or reduce how much caffeine or alcohol you drink. Give yourself time when you urinate. Keep all follow-up visits as told by your health care provider. This is important. Contact a health care provider if: You have unexplained back pain. Your symptoms do not get better with treatment. You develop side effects from the medicine you are taking. Your urine becomes very dark or has a bad smell. Your lower abdomen becomes distended and you have trouble passing your urine. Get help right away if: You have a fever or chills. You suddenly cannot urinate. You feel lightheaded, or very dizzy, or you faint. There are large amounts of blood or clots in the urine. Your urinary problems become hard to manage. You develop moderate to severe low back or flank pain. The flank is the side of your body between the ribs and the hip. These symptoms may represent a serious problem that is an emergency. Do not wait to see if the symptoms will go away. Get medical help right away. Call your local emergency services (911 in the [place] Do not drive yourself to the hospital. Summary Benign prostatic hyperplasia (BPH) is an enlarged prostate that is caused by the normal aging process and not by cancer. An enlarged prostate can press on the urethra. This can make it hard to pass urine. This condition is part of a normal aging process and is more likely to develop in men over the age of 50 years. Get help right away if you suddenly cannot urinate. This information is not intended to replace advice given to you by your health care provider. Make sure you discuss any questions you have with your health care provider. Document Released: 05/02/2006 Document Revised: 03/27/2019 Document Reviewed: 06/06/2017 [employer] Patient Education [employer]. Follow Up Care 12/25/2020 11:23:02 With:JULIA HAWKINS, Tristan Salter, URL Address: [address] [place], [place] [id number]- When: Unknown [facility] 08-10-2022 Evaluation note* Encounter Date Diagnosis Assessment Notes Treatment Notes Treatment Clinical Notes Dec, Type 2 diabetes mellitus (ICD-10 - E11.9) [employer] Other 07-05-2022 Evaluation note* Encounter Date Diagnosis Assessment Notes Treatment Notes Treatment Clinical Notes Nov, CAD (coronary artery disease) (ICD-10 - I25.10) Nov, Other asthma (ICD-10 - J45.998) [employer] Other 04-12-2022 Evaluation note* Encounter Date Diagnosis Assessment Notes Treatment Notes Treatment Clinical Notes Aug, Hypertension (ICD-10 - I10) Aug, Type 2 diabetes mellitus (ICD-10 - E11.9) Glucose findings are stable upon review of blood work results.The patient encourged to continue checking his blood sugar at home once a day . Pt is to continue with the above medication and continue watching their diet and increase their exercise regimen. Aug, Hyperlipidemia (ICD-10 - E78.5) Lipids are essentially the same compared to previous finding. Liver enzymes are within normal range. Kidney functions are somewhat elevated, we will continue to watch these closely. No signs of anemia or leukemia. Pt is to continue with the above medication and continue watching their diet and increase their exercise regimen. Aug, Hypothyroidism, unspecified type (ICD-10 - E03.9) The patient is to continue current medication regimen, TSH is within normal range upon reviw of blood work results. Aug, CAD (coronary artery disease) (ICD-10 - I25.10) The patient encourged to continue following with roll grinder as scheduled in December 2021. Aug, Fatigue, unspecified type (ICD-10 - R53.83) The patient complains of increased fatigue, discussion was had his blood work is all within normal range including thyroid , CBC and metabolic functions. Discussion was had if fatigue persists he may benefit from a echocardiogram. We will continue to monitor. [employer] Other 02-28-2022 Evaluation note* Encounter Date Diagnosis Assessment Notes Treatment Notes Treatment Clinical Notes Jun, Abdominal aortic aneurysm (AAA) without rupture (ICD-10 - I71.4) Jun, Other Abdominal aortic aneurysm status post endovascular aneurysm repair His CT scan remained stable with no evident endoleak. His sac size is stable. We will switch him to ultrasound follow-up next year to turn reduce his radiation exposure. He understands and is agreement with that plan. [employer] Other 12-15-2021 Evaluation note* Encounter Date Diagnosis Assessment Notes Treatment Notes Treatment Clinical Notes Apr, Type 2 diabetes mellitus (ICD-10 - E11.9) [employer] Other 03-27-2014 History general Narrative - Reported* Type Description Date Medical History Heart Catheterization 2007 Medical History Colonoscopy done 2004 - Dr. Bradley man Medical History Stress Test 2004 Medical History Hypertension Medical History Myocardial infarct 08-09-13 (in [place]) Medical History AAA Medical History Asthma Medical History CAD Medical History GERD Medical History Hyperlipidemia Medical History h/o of seizure on one occasion Medical History Refused colonoscopy 05-06-2016 Medical History follows with Dr. Dumont for PSA Medical History Stress Test- 11/03/2016 Medical History Cellulitis of left arm Medical History Cellulitis of left arm Medical History Cellulitis of right arm Medical History 04/2020 Covid + Surgical History T&A Surgical History cardiac stents Surgical History coronary angioplasty stents 12/14 Surgical History screws in right wrist 05/12/12 Surgical History EVAR--Endologix device and AYAKA embolization 12/2011 Surgical History 2 heart stents placed in [place] 08/09/13 Surgical History PEVAR-extension graft placement (Endologix) 04/13/2017 Surgical History CTS-sbdomen pelvis wo contrast 05/23/2017 Hospitalization History aneurysm 12/2011 Hospitalization History right wrist 04/2012 Hospitalization History COVID 04/2020 [employer] Other 03-27-2014 History general Narrative - Reported* Type Description Date Medical History Heart Catheterization 2007 Medical History Colonoscopy done 2004 - Dr. Kirk shah Medical History Stress Test 2004 Medical History Hypertension Medical History Myocardial infarct 08-09-13 (in [place]) Medical History AAA Medical History Asthma Medical History CAD Medical History GERD Medical History Hyperlipidemia Medical History h/o of seizure on one occasion Medical History Refused colonoscopy 05-06-2016 Medical History follows with Dr. Dumont for PSA Medical History Stress Test- 11/03/2016 Medical History Cellulitis of left arm Medical History Cellulitis of left arm Medical History Cellulitis of right arm Medical History 04/2020 Covid + Surgical History T&A Surgical History cardiac stents Surgical History coronary angioplasty stents 12/14 Surgical History screws in right wrist 05/12/12 Surgical History EVAR--Endologix device and AYAKA embolization 12/2011 Surgical History 2 heart stents placed in [place] 08/09/13 Surgical History PEVAR-extension graft placement (Endologix) 04/13/2017 Surgical History CTS-sbdomen pelvis wo contrast 05/23/2017 Surgical History BLADDER LIFT 2020 Hospitalization History aneurysm 12/2011 Hospitalization History right wrist 04/2012 Hospitalization History COVID 04/2020 [employer] Other 03-27-2014 History general Narrative - Reported* Type Description Date Medical History Heart Catheterization 2007 Medical History Colonoscopy done 2004 - Dr. Kirk shah Medical History Stress Test 2003 Medical History Hypertension Medical History Myocardial infarct 08-09-13 (in [place]) Medical History AAA Medical History Asthma Medical History CAD Medical History GERD Medical History Hyperlipidemia Medical History h/o of seizure on one occasion Medical History Refused colonoscopy 05-06-2016 Medical History follows with Dr. Dumont for PSA Medical History Stress Test- 11/03/2016 Medical History Cellulitis of left arm Medical History Cellulitis of left arm Medical History Cellulitis of right arm Medical History 04/2020 Covid + Medical History 01/2022 Stress Test Surgical History T&A Surgical History cardiac stents Surgical History coronary angioplasty stents 12/14 Surgical History screws in right wrist 05/12/12 Surgical History EVAR--Endologix device and AYAKA embolization 12/2011 Surgical History 2 heart stents placed [place] 08/09/13 Surgical History PEVAR-extension graft placement (Endologix) 04/13/2017 Surgical History CTS-sbdomen pelvis wo contrast 05/23/2017 Surgical History BLADDER LIFT 2020 Hospitalization History aneurysm 12/2011 Hospitalization History right wrist 04/2012 Hospitalization History COVID 04/2020 [employer] Other 03-27-2014 History general Narrative - Reported* Type Description Date Medical History Heart Catheterization 2007 Medical History Colonoscopy done 2004 - Dr. Kirk shah Medical History Stress Test 2003 Medical History Hypertension Medical History Myocardial infarct 08-09-13 (in [place]) Medical History AAA Medical History Asthma Medical History CAD Medical History GERD Medical History Hyperlipidemia Medical History h/o of seizure on one occasion Medical History Refused colonoscopy 05-06-2016 Medical History follows with Dr. Dumont for PSA Medical History Stress Test- 11/03/2016 Medical History Cellulitis of left arm Medical History Cellulitis of left arm Medical History Cellulitis of right arm Medical History 04/2020 Covid + Medical History 01/2022 Stress Test Medical History Former smoker Surgical History T&A Surgical History cardiac stents Surgical History coronary angioplasty stents 12/14 Surgical History screws in right wrist 05/12/12 Surgical History EVAR--Endologix device and AYAKA embolization 12/2011 Surgical History 2 heart stents placed [place] 08/09/13 Surgical History PEVAR-extension graft placement (Endologix) 04/13/2017 Surgical History CTS-sbdomen pelvis wo contrast 05/23/2017 Surgical History BLADDER LIFT 2020 Hospitalization History aneurysm 12/2011 Hospitalization History right wrist 04/2012 Hospitalization History COVID 04/2020 [employer] Other 03-27-2014 History general Narrative - Reported* Type Description Date Medical History Heart Catheterization 2007 Medical History Colonoscopy done 2004 - Dr. Bradley man Medical History Stress Test 2003 Medical History Hypertension Medical History Myocardial infarct 08-09-13 (in [place]) Medical History AAA Medical History Asthma Medical History CAD Medical History GERD Medical History Hyperlipidemia Medical History h/o of seizure on one occasion Medical History Refused colonoscopy 05-06-2016 Medical History follows with Dr. Dumont for PSA Medical History Stress Test- 11/03/2016 Medical History Cellulitis of left arm Medical History Cellulitis of left arm Medical History Cellulitis of right arm Medical History 04/2020 Covid + Medical History 01/2022 Stress Test Medical History Former smoker Medical History Arthritis Medical History diabetes mallitus Medical History heart disease Surgical History T&A Surgical History cardiac stents Surgical History coronary angioplasty stents 12/14 Surgical History screws in right wrist 05/12/12 Surgical History EVAR--Endologix device and AYAKA embolization 12/2011 Surgical History 2 heart stents placed [place] 08/09/13 Surgical History PEVAR-extension graft placement (Endologix) 04/13/2017 Surgical History CTS-sbdomen pelvis wo contrast 05/23/2017 Surgical History BLADDER LIFT 2020 Hospitalization History aneurysm 12/2011 Hospitalization History right wrist 04/2012 Hospitalization History COVID 04/2020 [employer] Other consdkz note Author Mayra Person [facility] September 18, 2023 11:39am Note Date/Time September 18, 2023 10:56a m [facility] [address] [place] [address] Cardiology Consult Note Signed Patient: Ever Mason MR#: [id number] : 1935 Acct:[id number] Age/Sex: 88 / M Adm Date: 4 Loc: 3T Room: [address] [place] [address] Type: ADM IN Attending Dr: Richard Galvan MD Copies to: Justice R DO Richard Singh MD Mourhaf A Traboulssi, MD~ Cardiology HPI History of Present Illness Consult Date: 09/18/23 Reason for Consult: Cardiac consultation requested for evaluation of symptoms of chest pain and angina HPI: Mr. Mason is a 88 year old male well-known to me. He does not have history of multivessel coronary artery disease. He underwent recent cardiac catheterization because of complaint of intermittent chest pain and positive stress test which led to the discovery of three-vessel disease. He was referredfor surgical evaluation but felt to be suboptimal candidate for surgical intervention. He was seen subsequently by Dr. Christopher at that point of time apparently the patient did not report anginal symptoms and Dr. Christopher recommended conservative management. Patient brought to the hospital because ofrecent complaint of decreased exercise tolerance, increasing shortness of breathand recurrent episodes of chest pain with minimal exertion suggestive of angina. He was admitted for evaluation. Cardiac enzyme and EKG appears to be negative. Review of Systems Review of Systems Review of systems: Other than arthritis review of all other pertinent system essentially unremarkable except mentioned above [facility] Medical History Trochanteric bursitis 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 Renal insufficiency Asthma Myocardial infarction Lumbar back pain with radiculopathy affecting right lower extremity Hypothyroidism GERD (gastroesophageal reflux disease) DVT (deep venous thrombosis) DDD (degenerative disc disease), lumbar BPH (benign prostatic hyperplasia) Arthritis Anemia COVID-19 Acute encephalopathy Former smoker Diabetes type 2 Angina at rest Abdominal aneurysm Overweight Orthostatic hypotension Hypertension Hyperlipidemia CAD (coronary artery disease) Surgical History History of bladder repair surgery Hx of heart artery stent x6 Hx of tonsillectomy Hx of hand surgery right hand Hx of colonoscopy Family History Brother Legacy FamHx Relation: Brother(s); 80 yrs Father Diabetes 65 yrs Heart disease Mother 78 yrs Heart disease Social History Smoking Status: Former smoker Tobacco Type: cigarettes Substance Use Type: None Meds Medications and Allergies Allergies sitagliptin [Januvia] Allergy (Unknown, Verified 09/17/23 18:03) constipation / ineffective Home Medications aspirin 81 mg tablet,delayed release 1 tab PO QAM 04/06/17 [History Confirmed 09/17/23] carvedilol 3.125 mg tablet 1 tab PO BID 04/06/17 [History Confirmed 09/17/23] isosorbide mononitrate 30 mg tablet,extended release 24 hr 30 mg PO QAM 04/06/17[History Confirmed 09/17/23] montelukast 10 mg tablet (Singulair) 10 mg PO QPM 04/06/17 [History Confirmed 09/17/23] nitroglycerin 0.4 mg sublingual tablet (Nitrostat) 0.4 mg sublingual Q5-15M PRN Chest Pain 04/06/17 [History Confirmed 09/17/23] potassium gluconate 550 mg (90 mg) tablet 1 tab PO DAILY PRN Hypokalemia 04/06/17 [History Confirmed 09/17/23] atorvastatin 20 mg tablet 20 mg PO QHS 02/20/20 [History Confirmed 09/17/23] levothyroxine 50 mcg capsule 50 mcg PO QAM 07/11/23 [History Confirmed 09/17/23] lisinopril 5 mg tablet 5 mg PO QPM 07/11/23 [History Confirmed 09/17/23] metformin 1,000 mg tablet (Glucophage) 500 mg PO QAM 07/12/23 [History Confirmed 09/17/23] multivitamin 1 tab PO DAILY 07/12/23 [History Confirmed 09/17/23] glipizide 5 mg tablet, extended release 24 hr 5 mg PO QPM 07/29/23 [History Confirmed 09/17/23] vit C 250 mg-vit E 90 mg-zinc 40 mg-copper 1 [id number] capsule (PreserVision AREDS-2) 1 tab PO QAM 07/29/23 [History Confirmed 09/17/23] Exam Physical Exam Vital Signs: Temp Pulse Resp BP Pulse Ox O2 Del Method 97.8 F 52 L 17 164/90 H 98 Room Air 09/18/23 08:00 09/18/23 08:00 09/18/23 08:00 09/18/23 08:00 09/18/23 08:00 09/18/23 08:00 Const General: cooperative, comfortable, no acute distress and well developed HEENT Head: atraumatic Mouth: oral mucosae normal Eyes General: appearance normal, both eyes and all related structures Pupils: PERRL Neck Neck: normal visual inspection, supple and no lymphadenopathy noted Neck mass: No Thyroid: thyroid normal Carotids: normal carotid upstroke Chest Chest palpation & inspection: normal inspection of the chest Resp Effort & Inspection: normal respiratory effort Auscultation: clear to auscultation bilaterally Cardio Palpation: normal PMI Rate: regular rate Rhythm: regular rhythm Heart Sounds: S1 normal and S2 normal GI Palpation: soft and no hepatosplenomegaly Percussion: normal to percussion Auscultation: normal bowel sounds Skin General: no rashes or lesions noted and dry skin Neuro General: patient alert, patient awake, patient oriented x3, tone normal and moves all extremities Extrem General: full ROM, capillary refill normal and no clubbing, cyanosis or edema Psych Mental Status: mental status grossly normal Results - Cardiology Labs 09/18/23 05:15 09/18/23 05:15 Lab results: Cardiac Enzymes 09/17/23 Range/Units 18:20 AST 49 H (13-39) U/L Total Creatine Kinase 72 (30-223) U/L B-Natriuretic Peptide 100.0 (5-100) pg/mL CBC 09/17/23 09/18/23 Range/Units 18:20 05:15 RBC 3.99 3.74 L (3.90-5.60) X10E6/uL Hgb 12.8 L 12.0 L (13.0-17.0) g/dL Hct 37.7 L 35.4 L (38.8-50.0) % Plt Count 118 L 100 L (150-450) x10E3/uL Neut # (Auto) 5.5 3.5 (1.8-7.7) x10E3/uL Lymph # (Auto) 1.2 1.0 (1.00-4.8) x10E3/uL Alger # (Auto) 0.7 0.5 (0.0-0.8) x10E3/uL Eos # (Auto) 0.1 0.1 (0.0-0.45) x10E3/uL Baso # (Auto) 0.1 0.0 (0.0-0.2) x10E3/uL Comprehensive Metabolic Panel 09/17/23 09/18/23 Range/Units 18:20 05:15 Sodium 140 140 (136-145) mmol/L Potassium 4.9 5.1 (3.5-5.1) mmol/L Chloride 110 H 109 H (98-107) mmol/L Carbon Dioxide 24.8 23.9 (21.0-31.0) mmol/L BUN 43 H 39 H (7-25) mg/dL Creatinine 1.56 H 1.48 H (0.70-1.30) mg/dL Glucose 135 H 145 H (70-100) mg/dL Calcium 9.2 8.9 (8.6-10.3) mg/dL Direct Bilirubin 0.10 (0.03-0.18) mg/dL Indirect Bilirubin 0.5 mg/dL AST 49 H (13-39) U/L ALT 30 (7-52) U/L Alkaline Phosphatase 88 (34-104) U/L Total Protein 5.9 L (6.4-8.9) gm/dL Albumin 3.7 (3.5-5.7) gm/dL Intake and Output 09/17/23 09/18/23 09/18/23 23:59 07:59 15:59 Intake Total 400 / 400 200 / 200 Balance 400 / 400 200 / 200 Intake: Oral 400 / 400 200 / 200 Other: # Unmeasured Voids 1 Weight 78.7 kg 78.7 kg Date of Last Bowel Movement 09/16/23 Patient Weight 09/18/23 23:59 Weight 78.7 kg Lab 09/17/23 18:20 PT 11.5 INR 1.0 APTT 27.6 EKG Interpretations EKG Attestation EKG: I reviewed this ECG and interpreted as documented below: (EKG showed sinus bradycardia with no ST-T changes) A&P - Cardiology (1) Crescendo angina: Code(s): I20.0 - Unstable angina Plan Assessment 1. Three-vessel coronary artery disease with known severe proximal circumflex, marginal 1, LAD disease with known chronic occlusion of the RCA. Patient felt not a optimal candidate for bypass surgery. He was seen recently by Dr. Castro at that point of time he was not having anginal symptoms and recommendation to continue with medical therapy. Now he clearly have accelerated course and recurrent angina. I did review the form and the patient appears to be reasonable candidate for limited PCI to the proximal circumflex and LAD which might alleviate his anginal symptoms 2. Mild stage III chronic kidney disease 3. Peripheral vascular disease with prior abdominal aortic stent 4. Hypertension 5. Hyperlipidemia 6. The patient noted to be significantly bradycardic he is on very low-dose Coreg of 3.125 twice daily Plan 1. Will continue to monitor heart rate closely if continue to be bradycardic will discontinue Coreg 2. Increase Imdur to 60 mg daily and consider adding Ranexa down the road 3. I reviewed treatment option with the patient and the his at great length. I spent more than 45 minutes discussing the treatment option including continue medical management with gradual uptitrating of antianginal therapy as detailed above versus proceeding with limited PCI to the mid LAD and proximal circumflex. Risk, benefit and alternative reviewed with him at great length taking into consideration his renal dysfunction family elected to proceed with PCI. Will keep tentatively n.p.o. and I will review the film with Dr. Christopher in the morning for arrangement Documented By: Mayra Person MD 09/18/23 1055 Signed By: <Electronically signed by MD Mayra Person> 09/18/23 1133 [facility] Work Phone: Consult note Author Ayla Estrada [facility] January 17, 2024 7:40pm Note Date/Time January 17, 2024 7:40pm [facility] [address] [place] [address] Cardiology Consult Note Signed Patient: Ever Mason MR#: [id number] : 1935 Acct:[id number] Age/Sex: 88 / M Adm Date: 4 Loc: ER Room: Type: [facility] ER Attending Dr: Copies to: DO Ayla Sims, KOFI Grossman Cardiology HPI History of Present Illness Consult Date: 01/17/24 Reason for Consult: chest pain HPI: Mr. Mason is a 88 year old male According to the patient it started yesterday, at rest, initially it was pain in the neck and shoulder area radiating to the chest, it improved after rubbing, and then reoccurred and todaybecame quite constant and quite severe, associated with some nausea and dizziness. Yesterday patient had some nausea and vomited, nonbloody. He deniesany sweating. However per he was quite pale. He denies any abdominal pain. No diarrhea. No dysuria urgency frequency. He does have underlying coronary artery disease with cardiac catheterization July 2023, at that time severe three-vessel disease was noted, patient was referred to tertiary care center for CT evaluation, however he was considered to be too high of a risk. His medications were adjusted and treated conservatively. This time he presented back to emergency room. Emergency room physician notified roll grinder who saw the patient in emergency room and was okay to admit the patient for cardiac catheterization in the morning. When I saw the patient he denied any chest pain any shoulder pain any neck pain. At that time he was feeling quite well with resolution of his symptoms. Per patient sometimes the pain gets worse when he moves the left upper extremity, today he denied any pain with movements of the shoulder joints. Patient case was discussed with patient's primary roll grinder who has been treating patient with medical optimization since his last admission which he wastransferred to outside facility for CV surgery consultation for bypass consideration. Per patient's as well as primary roll grinder who spoke to this urgent patient is at too high of a risk to undertake such invasive procedure hence patient was discharged from the hospital and continued with medical optimization. Patient was seen and evaluated bedside after patient took 2 nitro prior to hospital arrival since then he has not had any recurrence of symptoms. Presently patient is comfortable laying in bed without exhibiting signs of distress. Thorough evaluation at bedside with patient and as well as with patient's primary roll grinder; discussed treatment options with both primary roll grinder patient's and patient himself we have decided to proceed with planned PCI in the morning. Procedures risks, benefits and alternatives thoroughly discussed all questions answered; will keep patient n.p.o. after midnight, patient was to have recurrence of chest discomfort we will start Nitropaste/drip for symptomatic control until the morning. Review of Systems Review of Systems Review of systems: - Musculoskeletal: Severe pain in the neck and shoulder, radiating to the back. No recent trauma or injury. - Cardiovascular: No current chest pain or shortness of breath. - Gastrointestinal: Occasional mild morning indigestion, no significant nausea. PMFSH Medical History Abnormal cardiovascular stress test AAA (abdominal aortic aneurysm) Trochanteric bursitis 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 Renal insufficiency Asthma Myocardial infarction Lumbar back pain with radiculopathy affecting right lower extremity Hypothyroidism GERD (gastroesophageal reflux disease) DVT (deep venous thrombosis) DDD (degenerative disc disease), lumbar BPH (benign prostatic hyperplasia) Arthritis Anemia COVID-19 Acute encephalopathy Former smoker Diabetes type 2 Angina at rest Abdominal aneurysm Overweight Orthostatic hypotension Hypertension Hyperlipidemia CAD (coronary artery disease) Surgical History History of bladder repair surgery Hx of heart artery stent x6 Hx of tonsillectomy Hx of hand surgery right hand Hx of colonoscopy Family History Brother Legacy FamHx Relation: Brother(s); 80 yrs Father Diabetes 65 yrs Heart disease Mother 78 yrs Heart disease Social History Smoking Status: Former smoker Tobacco Type: cigarettes Substance Use Type: None Meds Medications and Allergies Allergies sitagliptin [Januvia] Allergy (Unknown, Verified 01/17/24 14:15) constipation / ineffective Home Medications aspirin 81 mg tablet,delayed release 1 tab PO QAM 04/06/17 [History Confirmed 01/17/24] levothyroxine 50 mcg capsule 50 mcg PO QAM 07/11/23 [History Confirmed 01/17/24] multivitamin 1 tab PO DAILY 07/12/23 [History Confirmed 01/17/24] vit C 250 mg-vit E 90 mg-zinc 40 mg-copper 1 [id number]-zxnncr-xqztul capsule (PreserVision AREDS-2) 1 tab PO QAM 07/29/23 [History Confirmed 01/17/24] carvedilol 3.125 mg tablet 3.125 mg PO BID 10/06/23 [History Confirmed 01/17/24] nitroglycerin 0.4 mg sublingual tablet (Nitrostat) 0.4 mg sublingual Q5-15M PRN Chest Pain 30 days #25 tabs 10/06/23 [Rx Confirmed 01/17/24] glipizide 5 mg tablet, extended release 24 hr 5 mg PO QPM #90 tabs 12/26/23 [Rx Confirmed 01/17/24] atorvastatin 20 mg tablet 40 mg PO DAILY 01/03/24 [History Confirmed 01/17/24] isosorbide mononitrate 30 mg tablet,extended release 24 hr 60 mg PO DAILY 01/03/24 [History Confirmed 01/17/24] lisinopril 2.5 mg tablet 2.5 mg PO DAILY 01/03/24 [History Confirmed 01/17/24] metformin 500 mg tablet 500 mg PO DAILY 01/03/24 [History Confirmed 01/17/24] montelukast 10 mg tablet (Singulair) 10 mg PO QPM #90 tabs 01/03/24 [Rx Confirmed 01/17/24] Exam Physical Exam Vital Signs: Temp Pulse Resp BP Pulse Ox O2 Del Method 97.6 F 64 20 106/60 96 Room Air 01/17/24 14:19 01/17/24 18:06 01/17/24 18:06 01/17/24 18:06 01/17/24 18:06 01/17/24 18:06 Additional Findings Additional Findings: Cardiovascular focused physical exam: General: Alert and oriented without signs of distress Cardiovascular: Normal sinus rhythm Pulmonary: Bilateral clear Extremity: 2+ pulses all 4 extremities without cyanosis edema Results - Cardiology Labs 01/17/24 14:45 01/17/24 14:45 Lab results: Cardiac Enzymes 01/17/24 Range/Units 14:45 AST 22 (13-39) U/L CBC 01/17/24 Range/Units 14:45 RBC 4.16 (3.90-5.60) X10E6/uL Hgb 13.3 (13.0-17.0) g/dL Hct 38.8 (38.8-50.0) % Plt Count 173 (150-450) x10E3/uL Neut # (Auto) 7.7 (1.8-7.7) x10E3/uL Lymph # (Auto) 1.1 (1.00-4.8) x10E3/uL Alger # (Auto) 1.2 H (0.0-0.8) x10E3/uL Eos # (Auto) 0.1 (0.0-0.45) x10E3/uL Baso # (Auto) 0.1 (0.0-0.2) x10E3/uL Comprehensive Metabolic Panel 01/17/24 Range/Units 14:45 Sodium 137 (136-145) mmol/L Potassium 4.3 (3.5-5.1) mmol/L Chloride 104 (98-107) mmol/L Carbon Dioxide 21.8 (21.0-31.0) mmol/L BUN 24 (7-25) mg/dL Creatinine 1.30 (0.70-1.30) mg/dL Glucose 230 H (70-100) mg/dL Calcium 9.4 (8.6-10.3) mg/dL AST 22 (13-39) U/L ALT 17 (7-52) U/L Alkaline Phosphatase 95 (34-104) U/L Total Protein 7.3 (6.4-8.9) gm/dL Albumin 4.0 (3.5-5.7) gm/dL Intake and Output 01/17/24 01/17/24 01/17/24 07:59 15:59 23:59 Other: # Voids 0 # Bowel Movements 0 # Emeses 0 Weight 76.8 kg Patient Weight 01/17/24 23:59 Weight 76.8 kg A&P - Cardiology (1) Crescendo angina: Code(s): I20.0 - Unstable angina (2) Essential (primary) hypertension: Code(s): I10 - Essential (primary) hypertension (3) 3-vessel coronary artery disease: Code(s): I25.10 - Atherosclerotic heart disease of [place] coronary artery without angina pectoris (4) Diabetes: Qualifiers: Diabetes mellitus type: type 2 Diabetes mellitus retirement insulin use:without intermodal customer service use Diabetes mellitus complication status: with hyperglycemia Qualified Code(s): E11.65 - Type 2 diabetes mellitus with hyperglycemia Code(s): E11.9 - Type 2 diabetes mellitus without complications (5) Aortic ectasia, thoracic: Code(s): I77.810 - Thoracic aortic ectasia Plan Extensive discussion with the patient's primary roll grinder (over the telephone), patient himself and his at bedside after conveyed the risk-benefit and alternatives patient and his has decided to proceed with stagedPCI. Given the patient has been turned down for surgical bypass and due to unacceptable risk, and patient has failed medical optimization with recurrence of clinical symptoms as well as new ECG changes, we will continue to trend troponins and EKG x 3 set every 3 hours Discussed with the ED physicians to consult hospitalist for admission and provide nitro in the form of Nitropaste or nitro drip if patient's symptoms was to recur tonight. N.p.o. after midnight for heart cath staged PCI in the morning Documented By: Ayla Estrada DO 01/17/241930 Signed By: <Electronically signed by Ayla Estrada DO> 01/17/241939 [facility] Work Phone: Discharge summary Author Richard Galvan [facility] September 19, 2023 2:38pm Note Date/Time September 19, 2023 2:38pm [facility] [address] [place] [address] Discharge Summary Signed Patient: Ever Mason MR#: [id number] : 1935 Acct:[id number] Age/Sex: 88 / M Adm Date: 4 Loc: Room: [address] [place] [address]: Richard Galvan MD Copies to: DO Richard Sims MD~ Providers Date of Discharge: 09/19/23 Discharging Provider: Richard Galvan Primary Care Provider: Justice Singh Consults: 09/17/23 19:48 Consult to Cardiology Routine Comment: Consulting Provider: [facility] - Cardiology Reason For Exam: cp Has Provider Been Notified: Yes Date of Notification: 09/17/23 Time of Notification: 21:30 09/17/23 19:49 Consult to Occupational Therapy Routine Comment: Physician Instructions: Consult to OT for:: Evaluation and Treat Consult to Physical Therapy Routine Comment: Physician Instructions: Consult to PT for:: Evaluation and Treat Discharge Diagnosis (1) Crescendo angina: (2) Chronic renal disease, stage III: (3) 3-vessel coronary artery disease: (4) Abnormal cardiovascular stress test: (5) Essential (primary) hypertension: (6) Coronary artery disease with angina pectoris: (7) AAA (abdominal aortic aneurysm): (8) Diabetes: (9) Former smoker: (10) Hyperlipidemia: Final Diagnosis Final Discharge Diagnosis: As above Summary Hospital Course Hospital course: Patient is a 88-year-old male with multiple medical comorbidity including multivessel coronary disease with recent cardiac catheterization done in 08/02/23showing severe three-vessel disease with new 85 to 90% disease involving proximal circumflex and restenotic mid LAD disease. Recommendation was second opinion from CT surgeon regarding surgical revascularization. He did follow-up with CT surgeon in [facility] and was considered not a surgical candidate. He again presented to the emergency room with complaint of chest pain was admitted for unstable angina. Cardiology was consulted and dose of Imdur has been increased to 60 mg daily with improvement in his symptoms. At this time after cardiology recommending conservative management given his high risk anatomy and would be a high risk PCI. Plan is to increase also Imdur and cleared to be discharged home by cardiology. He remained pain-free during hospital stay. Consideration for adding Ranexa if continues to have chest pain and if he fails medical therapy then will be referred [facility] for high risk[facility]. Condition Condition at Discharge: Stable Status at Discharge Functional status at discharge: independent ambulation Overall status at discharge: patient is back to baseline Time Spent with Patient Time spent providing/coordinating discharge services (# min): 32 Surgeries and Procedures Operation Date: 09/19/23 11:15 <No data on this case meets the specified criteria> Discharge Plan Discharge Plan Patient Disposition: Home Activity: Other Comment: Follow cardiac discharge instructions for activity restrictions. Diet: Low-Sodium and Low-Cholesterol Instructions: Angina (DC) Prescriptions: New isosorbide mononitrate 60 mg Tablet Extended Release 24 Hr 60 mg PO QAM 30 Days Qty: 30 2RF Continued aspirin 81 mg Tablet,Delayed Release (Dr/Ec) 1 tab PO QAM carvedilol 3.125 mg Tablet 1 tab PO BID nitroglycerin [Nitrostat] 0.4 mg Tablet, Sublingual 0.4 mg SUBLINGUAL Q5-15M PRN (Reason: Chest Pain) montelukast [Singulair] 10 mg Tablet 10 mg PO QPM metformin [Glucophage] 1,000 mg tablet 500 mg PO QAM atorvastatin 20 mg tablet 20 mg PO QHS Patient Comments: TAKE 1 TABLET BY MOUTH ONCE DAILY PreserVision AREDS-2 250-90-40-1 mg capsule 1 tab PO QAM glipizide 5 mg Tablet Extended Release 24 Hr 5 mg PO QPM levothyroxine 50 mcg capsule 50 mcg PO QAM lisinopril 5 mg tablet 5 mg PO QPM multivitamin Tablet 1 tab PO DAILY Discontinued isosorbide mononitrate 30 mg Tablet Extended Release 24 Hr 30 mg PO QAM potassium gluconate 550 mg (90 mg) Tablet 1 tab PO DAILY PRN (Reason: Hypokalemia) Follow Up: Justice Singh DO [Primary Care Provider] - 10/20/23 12:45 pm (Post hospital appointment. Please call to reschedule if needed ) Winnie Martin MD [Active Staff] - 10/06/23 11:20 am (Appt on Tue8has been cancelled) Exam Physical Exam Vital Signs: Temp Pulse Resp BP Pulse Ox O2 Del Method 97.8 F 49 L 16 141/79 H 97 Room Air 09/19/23 12:00 09/19/23 12:00 09/19/23 12:00 09/19/23 12:00 09/19/23 12:00 09/19/23 12:00 Const Orientation: alert, awake and oriented x3 Resp Effort & Inspection: normal respiratory effort and able to speak in complete sentences Auscultation: no rales, no rhonchi and no wheezes Cardio Rate: regular rate Rhythm: regular rhythm Heart Sounds: S1 normal and S2 normal GI Palpation: soft, not firm, no guarding and nontender Neuro General: patient alert, patient awake, patient oriented x3, moves all extremities, no focal motor deficits and CN's II-XI intact bilaterally Speech: speech normal Motor: muscle tone normal throughout and strength 5/5 throughout Extrem General: no clubbing, cyanosis or edema and no calf tenderness Diagnostic Studies Completed and Pending Studies Labs on day of discharge: 09/19/23 12:01: POC Glucose 166 09/19/23 06:32: POC Glucose 113 09/19/23 05:54: Corrected WBC 5.9, Uncorrected WBC Count 5.9, RBC 3.96, Hgb 12.7L, Hct 37.2 L, MCV 94.0, MCH 32.0, MCHC 34.1, RDW 13.2, Plt Count 107 L, MPV 8.6, Neut % (Auto) 72.4, Lymph % (Auto) 18.7, Alger % (Auto) 6.9, Eos % (Auto) 1.1, Baso % (Auto) 0.9, Nucleat RBC Rel Count 0.0, Neut # (Auto) 4.2, Lymph # (Auto) 1.1, Alger # (Auto) 0.4, Eos # (Auto) 0.1, Baso # (Auto) 0.1, PHA Creatinine Clear 36.39, Sodium 137, Potassium 4.9, Chloride 109 H, Carbon Dioxide 24.1, Anion Gap 8.8, BUN 40 H, Creatinine 1.43 H, Est GFR (CKD-EPI) 47.423, Glucose 132 H, Calcium 8.9 09/18/23 20:47: POC Glucose 145 09/18/23 16:22: POC Glucose 191 Documented By: Richard Galvan MD 09/19/23 1434 Signed By: <Electronically signed by Richard Galvan MD> 09/19/23 1438 [facility] Work Phone: Evaluation + Plan note No data available for this section [facility] Evaluation noteNo assessment information available [facility] Work Phone: Evaluation noteNo InformationNort [employer] Other Evaluation note* Diagnosis Onset Date Resolution Status AAA (abdominal aortic aneurysm) chronic Coronary artery disease with angina pectoris acute Essential (primary) hypertension acute AAA (abdominal aortic aneurysm) chronic [facility] Work Phone: Evaluation note* Diagnosis Onset Date Resolution Status AAA (abdominal aortic aneurysm) chronic Coronary artery disease with angina pectoris acute Essential (primary) hypertension acute AAA (abdominal aortic aneurysm) chronic AAA (abdominal aortic aneurysm) chronic [facility] Work Phone: Evaluation note* Diagnosis CAD, multiple vessel- Primary documented in this encounter [facility] Work Phone: Evaluation note* Diagnosis Onset Date Resolution Status AAA (abdominal aortic aneurysm) chronic Coronary artery disease with angina pectoris acute Essential (primary) hypertension acute AAA (abdominal aortic aneurysm) chronic AAA (abdominal aortic aneurysm) chronic Chronic pain acute Lumbar back pain with radicu lopathy affecting right lower extremity acute 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 acute Trochanteric bursitis acute [facility] Work Phone: Evaluation note* Diagnosis ASHD (arteriosclerotic heart disease) Coronary atherosclerosis of unspecified type of vessel, [place] or graft Type 2 diabetes mellitus with other specified complication, without long-term current use of insulin (Multi) Hyperlipidemia, unspecified hyperlipidemia type BMI 25.0-25.9,adult Former smoker Personal history of tobacco use, presenting hazards to health documented in this encounter [facility] Work Phone: Evaluation note* Diagnosis Onset Date Resolution Status AAA (abdominal aortic aneurysm) chronic Coronary artery disease with angina pectoris acute Essential (primary) hypertension acute AAA (abdominal aortic aneurysm) chronic AAA (abdominal aortic aneurysm) chronic Chronic pain acute Lumbar back pain with radicu lopathy affecting right lower extremity acute 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 acute Trochanteric bursitis acute Chest pain acute [facility] Work Phone: Evaluation note* Diagnosis Onset Date Resolution Status AAA (abdominal aortic aneurysm) chronic Coronary artery disease with angina pectoris acute Essential (primary) hypertension acute AAA (abdominal aortic aneurysm) chronic AAA (abdominal aortic aneurysm) chronic Chronic pain acute Lumbar back pain with radicu lopathy affecting right lower extremity acute 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 acute Trochanteric bursitis acute 3-vessel coronary artery disease acute Abnormal cardiovascular stress test acute CAD (coronary artery disease) acute Chest pain acute Chronic renal disease, stage III acute Coronary artery disease with angina pectoris acute Crescendo angina acute Diabetes acute Essential (primary) hypertension acute Former smoker acute Hyperlipidemia acute AAA (abdominal aortic aneurysm) chronic [facility] Work Phone: Evaluation note* Author Narda Aly [facility] Authored October 04, 2023 9:59a m The above note written by Amanuel MARY acting as human recorder, note dictated by Dr. Justice Singh. [facility] Work Phone: Evaluation note* Author Sara Carroll [facility] Authored January 03, 2024 9: 42am 3 months, Sooner if needed, ER if concerns. The above note was written by Sara Veverka [employer]OCI[employer], acting as human recorder, note dictated by Dr. Justice Singh. [facility] Work Phone: Evaluation note* Diagnosis Atherosclerosis of [place] coronary artery of [place] heart without angina pectoris- Primary [facility] Diagnosis ASHD (arteriosclerotic heart disease) Coronary atherosclerosis of unspecified type of vessel, [place] or graft History of PTCA Postsurgical percutaneous transluminal coronary angioplasty status Angina, class I (CMS-HCC) Other and unspecified angina pectoris Primary hypertension Unspecified essential hypertension Mixed hyperlipidemia Type 2 diabetes mellitus with other specified complication, without long-term current use of insulin BMI 26.0-26.9,adult Former smoker Personal history of tobacco use, presenting hazards to health documented in this encounter [facility] Work Phone: Evaluation note* Diagnosis Coronary artery disease involving [place] coronary artery of [place] heart, unspecified whether angina present- Primary Pre-procedural cardiovascular examination Pre-operative cardiovascular examination Advanced age Essential hypertension Unspecified essential hypertension Dyslipidemia Other and unspecified hyperlipidemia [facility] Diagnosis Lumbar paraspinal muscle spasm- Primary Other symptoms referable to back Weakness of both lower extremities documented in this encounter [facility]* Diagnosis Lumbar paraspinal muscle spasm- Primary Other symptoms referable to back Weakness of both lower extremities documented in this encounter [facility]* Diagnosis Lumbar paraspinal muscle spasm- Primary Other symptoms referable to back Weakness of both lower extremities Spasm of right piriformis muscle Right-sided low back pain with right-sided sciatica, unspecified chronicity documented in this encounter [facility]* Diagnosis Lumbar paraspinal muscle spasm- Primary Other symptoms referable to back Weakness of both lower extremities Spasm of right piriformis muscle Right-sided low back pain with right-sided sciatica, unspecified chronicity documented in this encounter [facility]* Diagnosis Lumbar paraspinal muscle spasm- Primary Other symptoms referable to back Weakness of both lower extremities Spasm of right piriformis muscle Right-sided low back pain with right-sided sciatica, unspecified chronicity documented in this encounter [facility]* Author Narda Aly [facility] Authored July 19, 2024 9:35 am The above note written by Amanuel MARY acting as human recorder, note dictated by Dr. Justice Singh. [facility] Work Phone: Evaluation note* Diagnosis ASHD (arteriosclerotic heart disease) Coronary atherosclerosis of unspecified type of vessel, [place] or graft History of PTCA Postsurgical percutaneous transluminal coronary angioplasty status Primary hypertension Unspecified essential hypertension Mixed hyperlipidemia Angina, class I Other and unspecified angina pectoris Aortic valve insufficiency, etiology of cardiac valve disease unspecified Abdominal aortic aneurysm (AAA) without rupture, unspecified part BMI 26.0-26.9,adult Former smoker Personal history of tobacco use, presenting hazards to health documented in this encounter [facility] Work Phone: Evaluation note* Author Citlaly Feliz [facility] Authored February 26, 2025 8 :54am Sooner if needed, the ER if concerns,The above note written by Citlaly Feliz LPN acting as human recorder, note dictated by Dr. Justice Singh [facility] Work Phone: History and physical note Author Ashley Griffiths [facility] September 17, 2023 8:37pm Note Date/Time September 17, 2023 8:37pm [facility] [address] [place] [address] Hospitalist H&P Signed Patient: Ever Mason MR#: [id number] : 1935 Acct:[id number] Age/Sex: 88 / M Adm Date: 4 Loc: Room: [address] [place] [address] Type: ADM IN Attending Dr: Ashley Griffiths MD Copies to: DO Ashley Sims MD~ HPI DATE OF EXAMINATION: 09/17/23 CHIEF COMPLAINT: cp HISTORY OF PRESENT ILLNESS: 88 years old male with underlying history of coronary artery disease, post previous interventions, status post cardiac cath in July 2023, showing 90% proximal circumflex and restenotic mid LAD with normal ejection fraction, at that time recommended second opinion from cardiothoracic surgeon at [facility], patient followed with cardiothoracic surgeon, who did not advise to undergo surgery, afterwards patient followed with Dr. Christopher who thought patient should be managed medically. Since that time sedation did not have any symptoms. However today while driving patient developed chest pressure, left-sided, not associated with any other symptoms, pressure-like sensation, lasting for about 30 minutes. Patient felt quite bad so he asked his daughter to go to emergency room. Upon arrival patient still had chest pain, however it resolved on its own before administering nitroglycerin. I did see the patient emergency room. She was asymptomatic. He denied any shortness of breath any palpitationsany dizziness any nausea any vomiting, however he felt quite weak and tired quickly. Patient is quite physically active, denies any symptoms with activity. He denies any lower extremity swelling. 10 systems are reviewed and are negative apart as mentioned H&P General -patient is awake alert oriented ?3, does not appear to be in distress HEENT -dry oropharyngeal mucosa without any ulcers or exudates Cardiovascular -S1 plus S2, with regular rate, without any murmurs, gallops, rubs Pulmonary -clear to auscultation bilaterally Gastrointestinal -abdomen is soft, nondistended, nontender, bowel sounds positive, no rigidity, no rebound Genitourinary -deferred Musculoskeletal -no back tenderness, no significant joint swelling, full range of motion Neurological -no focal Skin -no significant ulcers, no rash noted Extremities - no edema in bilateral lower extremities noted Psychiatry - appropriate affect Laboratory work up, imaging studies reviewed EKG personally reviewed by me normal sinus rhythm without acute ST-T wave changes, with ventricular rate 57, QTc 387 Previous records in the computer system reviewed Chest x-ray without acute findings [facility] Medical History (Updated 09/17/23 @ 19:54 by Merlin Escobar DO) Trochanteric bursitis 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 Renal insufficiency Asthma Myocardial infarction Lumbar back pain with radiculopathy affecting right lower extremity Hypothyroidism GERD (gastroesophageal reflux disease) DVT (deep venous thrombosis) DDD (degenerative disc disease), lumbar BPH (benign prostatic hyperplasia) Arthritis Anemia COVID-19 Acute encephalopathy Former smoker Diabetes type 2 Angina at rest Abdominal aneurysm Overweight Orthostatic hypotension Hypertension Hyperlipidemia CAD (coronary artery disease) Surgical History History of bladder repair surgery Hx of heart artery stent x6 Hx of tonsillectomy Hx of hand surgery right hand Hx of colonoscopy Family History Brother Legacy FamHx Relation: Brother(s); 80 yrs Father Diabetes 65 yrs Heart disease Mother 78 yrs Heart disease Social History Smoking Status: Former smoker Tobacco Type: cigarettes Substance Use Type: None Meds Medications and Allergies Allergies sitagliptin [Januvia] Allergy (Unknown, Verified 09/17/23 18:03) constipation / ineffective Home Medications aspirin 81 mg tablet,delayed release 1 tab PO QAM 04/06/17 [History Confirmed 09/17/23] carvedilol 3.125 mg tablet 1 tab PO BID 04/06/17 [History Confirmed 09/17/23] isosorbide mononitrate 30 mg tablet,extended release 24 hr 30 mg PO QAM 04/06/17[History Confirmed 09/17/23] montelukast 10 mg tablet (Singulair) 10 mg PO QPM 04/06/17 [History Confirmed 09/17/23] nitroglycerin 0.4 mg sublingual tablet (Nitrostat) 0.4 mg sublingual Q5-15M PRN Chest Pain 04/06/17 [History Confirmed 09/17/23] potassium gluconate 550 mg (90 mg) tablet 1 tab PO DAILY PRN Hypokalemia 04/06/17 [History Confirmed 09/17/23] atorvastatin 20 mg tablet 20 mg PO QHS 02/20/20 [History Confirmed 09/17/23] levothyroxine 50 mcg capsule 50 mcg PO QAM 07/11/23 [History Confirmed 09/17/23] lisinopril 5 mg tablet 5 mg PO QPM 07/11/23 [History Confirmed 09/17/23] metformin 1,000 mg tablet (Glucophage) 500 mg PO QAM 07/12/23 [History Confirmed 09/17/23] multivitamin 1 tab PO DAILY 07/12/23 [History Confirmed 09/17/23] glipizide 5 mg tablet, extended release 24 hr 5 mg PO QPM 07/29/23 [History Confirmed 09/17/23] vit C 250 mg-vit E 90 mg-zinc 40 mg-copper 1 [id number]-[id number] capsule (PreserVision AREDS-2) 1 tab PO QAM 07/29/23 [History Confirmed 09/17/23] Exam Physical Exam Vital Signs: Temp Pulse Resp BP Pulse Ox O2 Del Method 36.9 C 55 L 18 104/58 L 98 Room Air 09/17/23 18:05 09/17/23 19:30 09/17/23 19:30 09/17/23 19:30 09/17/23 19:30 09/17/23 19:30 Results - Hospitalist H&P Lab Results Labs: Laboratory Last Values Corrected WBC 7.6 X10E3/uL (4.1-10.5) 09/17/23 18:20 Uncorrected WBC Count 7.6 x10E3/uL (4.1-10.5) 09/17/23 18:20 RBC 3.99 X10E6/uL (3.90-5.60) 09/17/23 18:20 Hgb 12.8 g/dL (13.0-17.0) L 09/17/23 18:20 Hct 37.7 % (38.8-50.0) L 09/17/23 18:20 MCV 94.4 fl (83.5-101) 09/17/23 18:20 MCH 31.9 pg (27.5-35.2) 09/17/23 18:20 MCHC 33.8 g/dL (32.5-35.6) 09/17/23 18:20 RDW 13.2 % (12.0-14.8) 09/17/23 18:20 Plt Count 118 x10E3/uL (150-450) L 09/17/23 18:20 MPV 8.2 fl (6.6-10.1) 09/17/23 18:20 Neut % (Auto) 73.2 % (.) 09/17/23 18:20 Lymph % (Auto) 16.3 % (.) 09/17/23 18:20 Alger % (Auto) 8.7 % (.) 09/17/23 18:20 Eos % (Auto) 1.0 % (.) 09/17/23 18:20 Baso % (Auto) 0.8 % (.) 09/17/23 18:20 Nucleat RBC Rel Count 0.1 /100 WBC (0-0.5) 09/17/23 18:20 Neut # (Auto) 5.5 x10E3/uL (1.8-7.7) 09/17/23 18:20 Lymph # (Auto) 1.2 x10E3/uL (1.00-4.8) 09/17/23 18:20 Alger # (Auto) 0.7 x10E3/uL (0.0-0.8) 09/17/23 18:20 Eos # (Auto) 0.1 x10E3/uL (0.0-0.45) 09/17/23 18:20 Baso # (Auto) 0.1 x10E3/uL (0.0-0.2) 09/17/23 18:20 Monocyte Dist Width 16.05 % (0.00-20.00) 09/17/23 18:20 PT 11.5 Seconds (9.0-12.9) 09/17/23 18:20 INR 1.0 09/17/23 18:20 APTT 27.6 Seconds (25.1-36.5) 09/17/23 18:20 PHA Creatinine Clear 33.36 09/17/23 18:20 Sodium 140 mmol/L (136-145) 09/17/23 18:20 Potassium 4.9 mmol/L (3.5-5.1) 09/17/23 18:20 Chloride 110 mmol/L (98-107) H 09/17/23 18:20 Carbon Dioxide 24.8 mmol/L (21.0-31.0) 09/17/23 18:20 Anion Gap 10.1 mEq/L (6.0-15.0) 09/17/23 18:20 BUN 43 mg/dL (7-25) H 09/17/23 18:20 Creatinine 1.56 mg/dL (0.70-1.30) H 09/17/23 18:20 Est GFR (CKD-EPI) 42.721 mL/Min 09/17/23 18:20 Glucose 135 mg/dL (70-100) H 09/17/23 18:20 Calcium 9.2 mg/dL (8.6-10.3) 09/17/23 18:20 Magnesium 1.7 mg/dL (1.9-2.7) L 09/17/23 18:20 Total Bilirubin 0.6 mg/dl (0.3-1.0) 09/17/23 18:20 Direct Bilirubin 0.10 mg/dL (0.03-0.18) 09/17/23 18:20 Indirect Bilirubin 0.5 mg/dL 09/17/23 18:20 AST 49 U/L (13-39) H 09/17/23 18:20 ALT 30 U/L (7-52) 09/17/23 18:20 Alkaline Phosphatase 88 U/L (34-104) 09/17/23 18:20 Total Creatine Kinase 72 U/L (30-223) 09/17/23 18:20 Troponin I High Sens 5.8 pg/mL (0.0-20.0) 09/17/23 18:20 B-Natriuretic Peptide 100.0 pg/mL (5-100) 09/17/23 18:20 Total Protein 5.9 gm/dL (6.4-8.9) L 09/17/23 18:20 Albumin 3.7 gm/dL (3.5-5.7) 09/17/23 18:20 Globulin 2.2 gm/dL 09/17/23 18:20 Albumin/Globulin Ratio 1.7 09/17/23 18:20 Lipase 71.0 U/L (11.0-82.0) 09/17/23 18:20 Assessment & Plan Assessment/Plan (1) Chest pain: Plan 1. Chest pain with underlying coronary artery disease, status post recent cardiac cath showing advanced coronary artery disease, followed by cardiothoracic surgeon in [facility], recommended against surgery, followed with Dr. Christopher, recommended medical management, presented with recurrent chest pain, EKG nonischemic, troponins x 1 negative Admitted to telemetry, repeat EKG in a.m., continue serial cardiac enzymes, consult cardiology Continue with Nitropaste 2. Diabetes mellitus type 2, add sliding scale 3. Chronic kidney disease stage III, Creatinine stable, patient appears slightly hypovolemic, I will administer 1 L of IV fluid 4. Hypomagnesemia, replaced IP vs OBS Justification Based on differential dx, clinical care plan, and risk of adverse events, if untreated, in my clinical judgement this patient requires an acute care setting as: INPATIENT because of an expectation of an over 2 midnight stay. Estimated length of stay (# of days): 2 Documented By: Ashley Griffiths MD 09/17/232031 Signed By: <Electronically signed by Ashley Griffiths MD> 09/17/232036 [facility] Work Phone: History and physical note Author Ashley Griffiths [facility] January 17, 2024 7:22pm Note Date/Time January 17, 2024 7:16pm [facility] [address] [place] [address] Hospitalist H&P Signed Patient: Ever Mason MR#: [id number] : 1935 Acct:[id number] Age/Sex: 88 / M Adm Date: 4 Loc: ER Room: Type: [facility] ER Attending Dr: Copies to: DO Ashley Sims MD Stephanie M Krise, ~ HPI DATE OF EXAMINATION: 01/17/24 CHIEF COMPLAINT: Chest pain/left shoulder pain/left neck pain HISTORY OF PRESENT ILLNESS: 88 years old male, presented with the symptoms as noted above. According to thepatient it started yesterday, at rest, initially it was pain in the neck and shoulder area radiating to the chest, it improved after rubbing, and then reoccurred and today became quite constant and quite severe, associated with some nausea and dizziness. Yesterday patient had some nausea and vomited, nonbloody. He denies any sweating. However per he was quite pale. He denies any abdominal pain. No diarrhea. No dysuria urgency frequency. He doeshave underlying coronary artery disease with cardiac catheterization July 2023,at that time severe three-vessel disease was noted, patient was referred to tertiary care center for CT evaluation, however he was considered to be too highof a risk. His medications were adjusted and treated conservatively. This timehe presented back to emergency room. Emergency room physician notified roll grinder who saw the patient in emergency room and was okay to admit the patient for cardiac catheterization in the morning. When I saw the patient he denied any chest pain any shoulder pain any neck pain. At that time he was feeling quite well with resolution of his symptoms. Per patient sometimes the pain gets worse when he moves the left upper extremity, today he denied any pain with movements of the shoulder joints. 10 systems are reviewed and are negative apart as mentioned H&P General -patient is awake alert oriented ?3, does not appear to be in distress HEENT -normal oropharyngeal mucosa without any ulcers or exudates Cardiovascular -S1 plus S2, with systolic murmur Pulmonary -clear to auscultation bilaterally Gastrointestinal -abdomen is soft, nondistended, nontender, bowel sounds positive, no rigidity, no rebound Genitourinary -deferred Musculoskeletal -no joint swelling There is full range of motion of the left shoulder joint without any significantinducible pain upon active range of motion's. Neurological -no focal Skin -no significant ulcers, no rash noted Extremities - no edema in bilateral lower extremities noted Psychiatry - appropriate affect Laboratory work up, imaging studies reviewed EKG personally reviewed by me normal sinus rhythm with ventricular rate 78, QTc 419, with T wave inversions in 3 and aVF and flattening V5 V6. T wave inversions is new compared with EKG on September 17 Previous records in the computer system reviewed Chest x-ray without acute findings with bibasilar atelectasis [facility] Medical History Abnormal cardiovascular stress test AAA (abdominal aortic aneurysm) Trochanteric bursitis 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 Renal insufficiency Asthma Myocardial infarction Lumbar back pain with radiculopathy affecting right lower extremity Hypothyroidism GERD (gastroesophageal reflux disease) DVT (deep venous thrombosis) DDD (degenerative disc disease), lumbar BPH (benign prostatic hyperplasia) Arthritis Anemia COVID-19 Acute encephalopathy Former smoker Diabetes type 2 Angina at rest Abdominal aneurysm Overweight Orthostatic hypotension Hypertension Hyperlipidemia CAD (coronary artery disease) Surgical History History of bladder repair surgery Hx of heart artery stent x6 Hx of tonsillectomy Hx of hand surgery right hand Hx of colonoscopy Family History Brother Legacy FamHx Relation: Brother(s); 80 yrs Father Diabetes 65 yrs Heart disease Mother 78 yrs Heart disease Social History Smoking Status: Former smoker Tobacco Type: cigarettes Substance Use Type: None Meds Medications and Allergies Allergies sitagliptin [Januvia] Allergy (Unknown, Verified 01/17/24 14:15) constipation / ineffective Home Medications aspirin 81 mg tablet,delayed release 1 tab PO QAM 04/06/17 [History Confirmed 01/17/24] levothyroxine 50 mcg capsule 50 mcg PO QAM 07/11/23 [History Confirmed 01/17/24] multivitamin 1 tab PO DAILY 07/12/23 [History Confirmed 01/17/24] vit C 250 mg-vit E 90 mg-zinc 40 mg-copper 1 [id number]-ihukjo-hyzllk capsule (PreserVision AREDS-2) 1 tab PO QAM 07/29/23 [History Confirmed 01/17/24] carvedilol 3.125 mg tablet 3.125 mg PO BID 10/06/23 [History Confirmed 01/17/24] nitroglycerin 0.4 mg sublingual tablet (Nitrostat) 0.4 mg sublingual Q5-15M PRN Chest Pain 30 days #25 tabs 10/06/23 [Rx Confirmed 01/17/24] glipizide 5 mg tablet, extended release 24 hr 5 mg PO QPM #90 tabs 12/26/23 [Rx Confirmed 01/17/24] atorvastatin 20 mg tablet 40 mg PO DAILY 01/03/24 [History Confirmed 01/17/24] isosorbide mononitrate 30 mg tablet,extended release 24 hr 60 mg PO DAILY 01/03/24 [History Confirmed 01/17/24] lisinopril 2.5 mg tablet 2.5 mg PO DAILY 01/03/24 [History Confirmed 01/17/24] metformin 500 mg tablet 500 mg PO DAILY 01/03/24 [History Confirmed 01/17/24] montelukast 10 mg tablet (Singulair) 10 mg PO QPM #90 tabs 01/03/24 [Rx Confirmed 01/17/24] Exam Physical Exam Vital Signs: Temp Pulse Resp BP Pulse Ox O2 Del Method 36.4 C 64 20 106/60 96 Room Air 01/17/24 14:19 01/17/24 18:06 01/17/24 18:06 01/17/24 18:06 01/17/24 18:06 01/17/24 18:06 Results - Hospitalist H&P Lab Results Labs: Laboratory Last Values Corrected WBC 10.1 X10E3/uL (4.1-10.5) 01/17/24 14:45 Uncorrected WBC Count 10.1 x10E3/uL (4.1-10.5) 01/17/24 14:45 RBC 4.16 X10E6/uL (3.90-5.60) 01/17/24 14:45 Hgb 13.3 g/dL (13.0-17.0) 01/17/24 14:45 Hct 38.8 % (38.8-50.0) 01/17/24 14:45 MCV 93.3 fl (83.5-101) 01/17/24 14:45 MCH 31.9 pg (27.5-35.2) 01/17/24 14:45 MCHC 34.2 g/dL (32.5-35.6) 01/17/24 14:45 RDW 13.7 % (12.0-14.8) 01/17/24 14:45 Plt Count 173 x10E3/uL (150-450) 01/17/24 14:45 MPV 8.6 fl (6.6-10.1) 01/17/24 14:45 Neut % (Auto) 75.7 % (.) 01/17/24 14:45 Lymph % (Auto) 11.0 % (.) 01/17/24 14:45 Alger % (Auto) 12.1 % (.) 01/17/24 14:45 Eos % (Auto) 0.7 % (.) 01/17/24 14:45 Baso % (Auto) 0.5 % (.) 01/17/24 14:45 Nucleat RBC Rel Count 0.0 /100 WBC (0-0.5) 01/17/24 14:45 Neut # (Auto) 7.7 x10E3/uL (1.8-7.7) 01/17/24 14:45 Lymph # (Auto) 1.1 x10E3/uL (1.00-4.8) 01/17/24 14:45 Alger # (Auto) 1.2 x10E3/uL (0.0-0.8) H 01/17/24 14:45 Eos # (Auto) 0.1 x10E3/uL (0.0-0.45) 01/17/24 14:45 Baso # (Auto) 0.1 x10E3/uL (0.0-0.2) 01/17/24 14:45 Monocyte Dist Width 19.78 % (0.00-20.00) 01/17/24 14:45 PHA Creatinine Clear 40.03 01/17/24 14:45 Sodium 137 mmol/L (136-145) 01/17/24 14:45 Potassium 4.3 mmol/L (3.5-5.1) 01/17/24 14:45 Chloride 104 mmol/L (98-107) 01/17/24 14:45 Carbon Dioxide 21.8 mmol/L (21.0-31.0) 01/17/24 14:45 Anion Gap 15.5 mEq/L (6.0-15.0) H 01/17/24 14:45 BUN 24 mg/dL (7-25) 01/17/24 14:45 Creatinine 1.30 mg/dL (0.70-1.30) 01/17/24 14:45 Est GFR (CKD-EPI) 53.169 mL/Min 01/17/24 14:45 Glucose 230 mg/dL (70-100) H 01/17/24 14:45 Calcium 9.4 mg/dL (8.6-10.3) 01/17/24 14:45 Total Bilirubin 0.8 mg/dl (0.3-1.0) 01/17/24 14:45 AST 22 U/L (13-39) 01/17/24 14:45 ALT 17 U/L (7-52) 01/17/24 14:45 Alkaline Phosphatase 95 U/L (34-104) 01/17/24 14:45 Troponin I High Sens 5.4 pg/mL (0.0-20.0) 01/17/24 14:45 Total Protein 7.3 gm/dL (6.4-8.9) 01/17/24 14:45 Albumin 4.0 gm/dL (3.5-5.7) 01/17/24 14:45 Globulin 3.3 gm/dL 01/17/24 14:45 Albumin/Globulin Ratio 1.2 01/17/24 14:45 Lipase 70.0 U/L (11.0-82.0) 01/17/24 14:45 Assessment & Plan Assessment/Plan (1) Acute pain of left shoulder: Plan 1. Chest pain/shoulder pain in the patient with underlying severe coronary artery disease status post cardiac authorization in July 2023, at that time he was referred for CT evaluation to the tertiary care center, who recommended to continue with conservative therapies the patient was quite high risk. Patient was evaluated by roll grinder in the emergency room today, recommended cardiac cath in the morning Currently patient is asymptomatic Continue with antiplatelet therapy with aspirin, statins and beta-blockers, willplace Nitropatch EKG new T wave inversions but troponins negative Admit to telemetry Consult cardiology 2. Diabetes mellitus type 2, add sliding scale, hold glipizide 3. DVT prophylaxis SCDs for now The patient care was discussed with the patient and the patient's at the bedside IP vs OBS Justification Based on differential dx, clinical care plan, and risk of adverse events, if untreated, in my clinical judgement this patient requires an acute care setting as: INPATIENT because of an expectation of an over 2 midnight stay. Estimated length of stay (# of days): 3 Documented By: Ashley Griffiths MD 01/17/241910 Signed By: <Electronically signed by Ashley Griffiths MD> 01/17/241921 [facility] Work Phone: History of Present illness Narrative* For follow-up and management for history of coronary artery disease based on previous cardiac catheterization medical therapy was recommended, hypertension, hyperlipidemia and abdominal aortic aneurysm. Since last time I saw him he denies any cardiac complaint chest pain, palpitation, lightheadedness, dizziness or syncope. He remains fairly active. He denies any complaint * ASSESSMENT: * 1. Multivessel coronary artery disease. Anatomy is well known based on prior heart cath. He had occlusion of the RCA, which is chronic and occlusion of 2 small marginal branches. Functional class I with no recent angina * 2 . Right prior COVID-19 infection with from which he recovered from * 3. Hypertension, controlled. * 4. Hyperlipidemia, controlled. * 5. Previous history of orthostatic hypotension, resolved. * 6. Abdominal aortic aneurysm, addressed by vascular surgery * 7. Obesity with recent weight change * 8. Recent diagnosis of distal DVT had received a total of 3-month of Eliquis. Has been off that with no recurrence * RECOMMENDATION: * 1. The patient was advised rest medical therapy * 2. I did review his recent lab * 3. Patient was advised to notify me with change in cardiac status * 4. Patient was counseled regarding losing weight and exercise. * 5. Patient was advised to up in 9-month * 6. Follow-up in 6 months [facility] 250 DO Work Phone: History of Present illness Narrative* Patient is here for follow-up and management for coronary artery disease with previous documentation of occlusion of the RCA and disease of small marginal branch based on remote heart cath, intermittent angina, hypertension, hyperlipidemia. Since last time I saw him he report he is feeling well. Described intermittent episode of chest pain but he reported it resolved with Tums. He denies lightheadedness, dizziness or syncope. He remains active. His recent abdominal ultrasound and lab work notedand reviewed with him * ASSESSMENT: * 1. Multivessel coronary artery disease. Anatomy is well known based on prior heart cath. He had occlusion of the RCA, which is chronic and occlusion of 2 small marginal branches. Recent stress test was negative * 2 . Previous complain decreased exercise tolerance, dyspnea exertion, fatigue and intermittent episodes of chest pain resolved with nitroglycerin report improvement. No recurrence. * 3. Hypertension, controlled. Bring him running a little bit on the higher range at home * 4. Hyperlipidemia, controlled. LDL is 56 * 5. Previous history of orthostatic hypotension, resolved. * 6. Abdominal aortic aneurysm, addressed by vascular surgery * 7. Obesity with recent weight change * 8. Prior diagnosis of distal DVT had received a total of 3-month of Eliquis. Has been off that withno recurrence * RECOMMENDATION: * 1. The patient was advised to continue present medical therapy * 2 we discussed coronary risk factor modification * 3. Patient was advised to notify me with change in cardiac status * 4. Patient was counseled regarding losing weight and exercise. * 5. I see him back in 6 months or earlier if the need arise decreased/tolerance, dyspnea exertion and anginal symptoms * 6. I advised him if he develop any more chest pain will consider cardiac catheterization * 7 I advised him to continue to follow his follow-up with his vascular surgeon [facility] 250 DO Work Phone: Hospital Discharge instructions Additional Instructions Keep area clean and dry Lotrimin 2 times a day [facility] are [facility]: Hospital Discharge instructions Additional Instructions 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 1. You were given conscious sedation. Do not operate a vehicle, power tools, make important decisions, or drink alcohol for 24 hours. You might be drowsy or light headed. Return to the Emergency Room if you have trouble breathing, walking or nausea and vomiting. 2. FOR BLEEDING: Apply continuous pressure to the site and call 911. 3. Operative Site Care: Keep the dressing clean and dry. You may change the dressing only if soiled or wet. You may remove the dressing the following morning. You may wash over the puncture site in the shower. If the puncture site is at the wrist no soaking for 3 days. Some bruising or slight swelling may be present. -Signs of infection are redness, warmth, swelling, getting more sore, colored drainage, fever or chills. -Should the arm or leg become cold, numb, blue or white, call the roll grinder immediately. 4. ACTIVITY: You are advised to go directly home from the hospital. Restrict your activities for the rest of the day. Resume light or normal activities tomorrow. Do not engage in any activity that will stress the puncture site. Avoid heavy lifting (over 15 lbs.), straining or bending at the catheter site for 48 hours after discharge. If the puncture site is at the wrist do not manipulate wrist for 24 hours and no lifting more than 3 lbs for 3 days. 5. DIET:You may eat your regular diet when you desire. 6. MEDICATIONS: Resume your daily prescription schedule. Prescriptions may be sent with you if needed. Use as directed. When taking pain medications, you may experience dizziness or drowsiness. Do not drink alcohol or drive when taking pain medications. 7. If you should experience episodes of angina e.g. chest discomfort, heaviness, tightness, pressure, burning, with or without radiation to the neck, jaws, arms, or back- Use 1 Nitrostat under your tongue every 5-10 minutes, and up to 3 tablets. If no relief- Call 911 and go to the nearest Emergency Room. -Notify the office for recurrent angina, chest pain or other concerns. You may NOT drive yourself home! Follow the medication instructions provided on your discharge. If the dosages and instructions on this sheet differ from the dosage and instructions on the bottle, follow the instructions on the bottle. [facility] is not responsible for incorrect prescription information provided by the patient during their visit. Do not stop your medications without consulting your health care provider. Please take the list with you to your next doctor's appointment.[facility] Work Phone: Hospital Discharge instructionsAmbulatory Orders* PT/OT/SP OutPatient Referral Time Frame: 1 Day, Location: Determined By Patient [facility] Work Phone: Progress note No data available for this section [facility] note Author Richard Galvan [facility] September 18, 2023 9:21am Note Date/Time September 18, 2023 9:21am [facility] [address] [place] [address] Hospitalist Progress Note Signed Patient: Ever Mason MR#: [id number] : 1935 Acct:[id number] Age/Sex: 88 / M Adm Date: 4 Loc: Room: [address] [place] [address] Type: ADM IN Attending Dr: Richard Galvan MD Copies to: ~ Date of Service: 09/18/2023 Subjective Subjective Narrative: On examination patient sitting comfortably on chair with no overnight event. Hedenies further chest pain or shortness of breath. He was admitted yesterday when present to ER with complaint of chest pain. He has known history of coronary artery disease with previous PCI as per the patient over 6 stents placed in the past. He underwent cardiac catheterization on 08/06 which showed severe three-vessel disease with new 85 to 90% proximal circumflex disease and restenotic mid LAD disease. He was referred to CT surgeon for second opinion for possible surgery if not then they will reconsider PCI to proximal circumflexand mid LAD. Patient has seen cardiothoracic surgeon at [place] and surgery was not recommended. Patient has switched his cardiac care to Dr. Catalan has seen him once. Serial cardiac enzymes have been negative. Exam Physical Exam Vital Signs: Temp Pulse Resp BP Pulse Ox O2 Del Method 97.8 F 52 L 17 164/90 H 98 Room Air 09/18/23 08:00 09/18/23 08:00 09/18/23 08:00 09/18/23 08:00 09/18/23 08:00 09/18/23 08:00 Const Orientation: alert, awake and oriented x3 Resp Effort & Inspection: normal respiratory effort and able to speak in complete sentences Auscultation: no rales, no rhonchi and no wheezes Cardio Rate: regular rate Rhythm: regular rhythm Heart Sounds: S1 normal and S2 normal GI Palpation: soft, not firm, no guarding and nontender Neuro General: patient alert, patient awake, patient oriented x3, moves all extremities, no focal motor deficits and CN's II-XI intact bilaterally Speech: speech normal Motor: muscle tone normal throughout and strength 5/5 throughout Extrem General: no clubbing, cyanosis or edema and no calf tenderness Objective Lab Results 09/18/23 05:15 09/18/23 05:15 Meds Allergies and Active Meds Allergies sitagliptin [Januvia] Allergy (Unknown, Verified 09/17/23 18:03) constipation / ineffective Active Meds: Active Medications Generic Name Dose Route Start Last Admin Trade Name Freq PRN Reason Stop Dose Admin Acetaminophen 650 mg 09/17/23 19:48 Acetaminophen 325 Mg Tablet PO 09/16/24 19:47 Q4H PRN Pain Scale 1 - 5 Aspirin 81 mg 09/18/23 09:00 09/18/23 09:00 Aspirin 81 Mg Tablet. PO 09/17/24 08:59 81 mg QAM UZMA Administration Atorvastatin Calcium 20 mg 09/17/23 22:00 09/17/23 21:52 Atorvastatin 20 Mg Tablet PO 09/16/24 21:59 20 mg QHS UZMA Administration Carvedilol 3.125 mg 09/17/23 21:00 09/18/23 08:59 Carvedilol 3.125 Mg Tablet PO 09/16/24 20:59 3.125 mg BID UZMA Administration Dextrose 0 gm 09/17/23 19:48 Dextrose 50% In Water 25 Gm/50 Ml Syringe IV-PUSH 09/16/24 19:47 PRN PRN Hypoglycemia Docusate Sodium 200 mg 09/17/23 19:48 Docusate 100 Mg Capsule PO 09/16/24 19:47 BID PRN Constipation Glucose 0 gm 09/17/23 19:48 Dextrose 40% Gel 15 Gm Tube PO 09/16/24 19:47 PRN PRN Hypoglycemia Hydralazine HCl 10 mg 09/17/23 19:48 Hydralazine 20 Mg/Ml Vial IV-PUSH 09/16/24 19:47 Q4H PRN if SBP > 185 Sodium Chloride 1,000 mls @ 75 mls/hr 09/17/23 20:45 09/17/23 21:51 0.9% Sodium Chloride 1,000 Ml IV 09/18/23 10:04 75 mls/hr .[id number] UZMA Administration Isosorbide Mononitrate 30 mg 09/18/23 09:00 09/18/23 08:59 Isosorbide Mononitrate 24hr Er 30 Mg Tab.Er.24h PO 09/17/24 08:59 30 mg QAM UZMA Administration Levothyroxine Sodium 50 mcg 09/18/23 06:30 09/18/23 06:16 Levothyroxine 50 Mcg Tablet PO 09/17/24 06:29 50 mcg DAILY@0630 UZMA Administration Montelukast Sodium 10 mg 09/17/23 21:00 09/17/23 21:52 Montelukast 10 Mg Tablet PO 09/16/24 20:59 10 mg QPM UZMA Administration Nitroglycerin 0.4 mg 09/17/23 18:18 Nitroglycerin 0.4 Mg Tab.Subl SUBLINGUAL 09/16/24 18:17 Q5M PRN Chest Pain Nitroglycerin 0.4 mg 09/17/23 19:47 Nitroglycerin 0.4 Mg Tab.Subl SUBLINGUAL 09/16/24 19:46 Q5MIN.X3 PRN Chest Pain Sodium Chloride 0 ml 09/17/23 18:02 Sodium Chloride 0.9 % 10 Ml Syringe IV-PUSH 09/16/24 18:01 PRN PRN Flush A&P - Hospitalist Assessment/Plan (1) Chest pain: Plan 1. Chest pain with underlying coronary artery disease, status post recent cardiac cath showing advanced coronary artery disease, followed by cardiothoracic surgeon in [facility], recommended against surgery, followed with Dr. Christopher, recommended medical management, presented with recurrent chest pain, EKG nonischemic, serial troponins have been negative. Patient does have extensive coronary artery disease and there was a consideration for PCI to circumflex and LAD if not a surgical candidate. Given his pain suspecting angina he has been admitted for further workup. Possible titration of long-acting nitrate versus intervention. Cardiology has been consulted. Continue aspirin, Imdur, carvedilol and statin 2. Diabetes mellitus type 2, add sliding scale. Continue to hold metformin and other oral hypoglycemic agent. 3. Chronic kidney disease stage III, renal function at baseline. Avoid nephrotoxic medications. 4. Hypomagnesemia, replaced. 5. Hypertension, continue lisinopril as blood pressure has improved since he was hypotensive yesterday. Subcutaenous heparin for DVT prophylaxis. Documented By: Richard Galvan MD 09/18/23912 Signed By: <Electronically signed by Richard Galvan MD> 09/18/23920 [facility] Work Phone: Progress note Author Richard Galvan [facility] September 19, 2023 1:43pm Note Date/Time September 19, 2023 9:58am [facility] [address] [place] [address] Progress Note Signed Patient: Ever Mason MR#: [id number] : 1935 Acct:[id number] Age/Sex: 88 / M Adm Date: 4 Loc: Room: [address] [place] [address] Type: ADM IN Attending Dr: Richard Galvan MD Copies to: ~ Date of Service: 09/19/2023 Subjective History of Present Illness HPI: Patient is sitting comfortably on chair with no overnight event. Patient reportsthat he feels better. He denies further chest pain or shortness of breath. He denies nausea, diarrhea, or vomiting. Patient reported last BM was a few days ago. He was admitted on 09/16 when present to ER with complaint of chest pain. Hehas known history of coronary artery disease with previous PCI as per the patient over 6 stents placed in the past. He underwent cardiac catheterization on 08/06 which showed severe three-vessel disease with new 85 to 90% proximal circumflex disease and restenotic mid LAD disease. Serial cardiac enzymes have been negative. Patient will proceed with PCI today. Exam Physical Exam Vital Signs: Temp Pulse Resp BP Pulse Ox O2 Del Method 97.9 F 50 L 16 144/82 H 99 Room Air 09/19/23 08:00 09/19/23 08:00 09/19/23 08:00 09/19/23 08:00 09/19/23 08:00 09/19/23 08:00 Narrative: Const Orientation: alert, awake and oriented x3 Resp Effort & Inspection: normal respiratory effort and able to speak in complete sentences Auscultation: no rales, no rhonchi and no wheezes Cardio Rate: regular rate Rhythm: regular rhythm Heart Sounds: S1 normal and S2 normal GI Palpation: soft, not firm, no guarding and nontender Neuro General: patient alert, patient awake, patient oriented x3, moves all extremities, no focal motor deficits and CN's II-XI intact bilaterally Speech: speech normal Motor: muscle tone normal throughout and strength 5/5 throughout Extrem General: no clubbing, cyanosis or edema and no calf tenderness Lab Results Labs: 09/19/23 06:32: POC Glucose 113 09/19/23 05:54: Corrected WBC 5.9, Uncorrected WBC Count 5.9, RBC 3.96, Hgb 12.7L, Hct 37.2 L, MCV 94.0, MCH 32.0, MCHC 34.1, RDW 13.2, Plt Count 107 L, MPV 8.6, Neut % (Auto) 72.4, Lymph % (Auto) 18.7, Alger % (Auto) 6.9, Eos % (Auto) 1.1, Baso % (Auto) 0.9, Nucleat RBC Rel Count 0.0, Neut # (Auto) 4.2, Lymph # (Auto) 1.1, Alger # (Auto) 0.4, Eos # (Auto) 0.1, Baso # (Auto) 0.1, PHA Creatinine Clear 36.39, Sodium 137, Potassium 4.9, Chloride 109 H, Carbon Dioxide 24.1, Anion Gap 8.8, BUN 40 H, Creatinine 1.43 H, Est GFR (CKD-EPI) 47.423, Glucose 132 H, Calcium 8.9 09/18/23 20:47: POC Glucose 145 09/18/23 16:22: POC Glucose 191 09/18/23 11:05: POC Glucose 159 Assessment/Plan Assessment/Plan (1) Crescendo angina: Code(s): I20.0 - Unstable angina (2) Chest pain: Code(s): R07.9 - Chest pain, unspecified (3) CAD (coronary artery disease): Code(s): I25.10 - Atherosclerotic heart disease of [place] coronary artery without angina pectoris (4) Essential (primary) hypertension: Code(s): I10 - Essential (primary) hypertension (5) Chronic renal disease, stage III: Code(s): N18.30 - Chronic kidney disease, stage 3 unspecified Plan Assessment/Plan (1) Chest pain: Plan 1. Chest pain with underlying coronary artery disease, status post recent cardiac cath showing advanced coronary artery disease, followed by cardiothoracic surgeon in [facility], recommended against surgery, followed with Dr. Christopher, recommended medical management, presented with recurrent chest pain, EKG nonischemic, serial troponins have been negative. Patient does have extensive coronary artery disease and there was a consideration for PCI to circumflex and LAD if not a surgical candidate. Given his pain suspecting angina he has been admitted for further workup. Dose of Imdur has been increased to 60 mg. Cardiology has been consulted and PCI will be done today. Continue aspirin, Imdur, carvedilol and statin 2. Diabetes mellitus type 2, add sliding scale. Continue to hold metformin andother oral hypoglycemic agent. 3. Chronic kidney disease stage III, renal function at baseline. Avoid nephrotoxic medications. 4. Hypomagnesemia, replaced. 5. Hypertension, continue lisinopril as blood pressure has improved since he was hypotensive yesterday. Subcutaenous heparin for DVT prophylaxis. Documented By: Richard Galvan MD 09/19/23 0945 Signed By: <Electronically signed by Richard Galvan MD> 09/19/23 3603 [facility] Work Phone: Progress note Author Autumn Davis [facility] September 19, 2023 2:08pm Note Date/Time September 19, 2023 2:08pm [facility] [address] [place], [place] [id number] Cardiology Progress Note Signed Patient: Ever Mason MR#: [id number] : 1935 Acct:[id number] Age/Sex: 88 / M Adm Date: 4 Loc: 3T Room: [address] [place] [address] Type: ADM IN Attending Dr: Richard Galvan MD Copies to: ~ Date of Service: 09/19/2023 Subjective Interval history: Mr. Mason is a 88 year old male who had recent cardiac catheterization because of complaint of intermittent chest pain and positive stress test which led to the discovery of three-vessel disease. He was referred for surgical evaluation but felt to be suboptimal candidate for surgical intervention. He was seen subsequently by Dr. Chirstopher at that point of time apparently the patient did not report anginal symptoms and Dr. Christopher recommended conservativemanagement. Patient brought to the hospital because of recent complaint of decreased exercise tolerance, increasing shortness of breath and recurrent episodes of chest pain with minimal exertion suggestive of angina. He was admitted for evaluation. Cardiac enzyme and EKG negative. Interim evaluation 09/19/2023: No acute events overnight. Pt has not had further chest pain since admission. Troponin negative x4. EKG without ischemic changes. Exam Physical Exam Vital Signs: Temp Pulse Resp BP Pulse Ox O2 Del Method 97.8 F 49 L 16 141/79 H 97 Room Air 09/19/23 12:00 09/19/23 12:00 09/19/23 12:00 09/19/23 12:00 09/19/23 12:00 09/19/23 12:00 Narrative: GEN: AAOx3. No acute distress. Neck: No JVD. Lungs: Clear to auscultation bilaterally Heart: Regular rate and rhythm. Normal S1 and S2. No murmurs or rubs appreciated. Abdomen: Soft, nontender, nondistended, bowel sounds present. Extremities: No BLE edema. Neuro: AAOx3. No focal deficits. Objective Labs 09/19/23 05:54 09/19/23 05:54 Labs: Laboratory Results - last 24 hr 09/18/23 09/18/23 09/19/23 16:22 20:47 05:54 Corrected WBC 5.9 Uncorrected WBC Count 5.9 RBC 3.96 Hgb 12.7 L Hct 37.2 L MCV 94.0 MCH 32.0 MCHC 34.1 RDW 13.2 Plt Count 107 L MPV 8.6 Neut % (Auto) 72.4 Lymph % (Auto) 18.7 Alger % (Auto) 6.9 Eos % (Auto) 1.1 Baso % (Auto) 0.9 Nucleat RBC Rel Count 0.0 Neut # (Auto) 4.2 Lymph # (Auto) 1.1 Alger # (Auto) 0.4 Eos # (Auto) 0.1 Baso # (Auto) 0.1 PHA Creatinine Clear 36.39 Sodium 137 Potassium 4.9 Chloride 109 H Carbon Dioxide 24.1 Anion Gap 8.8 BUN 40 H Creatinine 1.43 H Est GFR (CKD-EPI) 47.423 Glucose 132 H POC Glucose 191 145 Calcium 8.9 09/19/23 09/19/23 06:32 12:01 Corrected WBC Uncorrected WBC Count RBC Hgb Hct MCV MCH MCHC RDW Plt Count MPV Neut % (Auto) Lymph % (Auto) Alger % (Auto) Eos % (Auto) Baso % (Auto) Nucleat RBC Rel Count Neut # (Auto) Lymph # (Auto) Alger # (Auto) Eos # (Auto) Baso # (Auto) PHA Creatinine Clear Sodium Potassium Chloride Carbon Dioxide Anion Gap BUN Creatinine Est GFR (CKD-EPI) Glucose POC Glucose 113 166 Calcium A&P - Cardiology (1) Crescendo angina: Code(s): I20.0 - Unstable angina (2) Chronic renal disease, stage III: Code(s): N18.30 - Chronic kidney disease, stage 3 unspecified (3) 3-vessel coronary artery disease: Code(s): I25.10 - Atherosclerotic heart disease of [place] coronary artery without angina pectoris (4) Abnormal cardiovascular stress test: Code(s): R94.39 - Abnormal result of other cardiovascular function study (5) Essential (primary) hypertension: Code(s): I10 - Essential (primary) hypertension (6) Coronary artery disease with angina pectoris: Code(s): I25.119 - Atherosclerotic heart disease of [place] coronary artery with unspecified angina pectoris (7) AAA (abdominal aortic aneurysm): Qualifiers: Presence of rupture: without rupture Qualified Code(s): I71.4 - Abdominal aortic aneurysm, without rupture Code(s): I71.4 - Abdominal aortic aneurysm, without rupture (8) Diabetes: Code(s): E11.9 - Type 2 diabetes mellitus without complications (9) Former smoker: Code(s): Z87.891 - Personal history of nicotine dependence (10) Hyperlipidemia: Code(s): E78.5 - Hyperlipidemia, unspecified Plan Assessment 1. Three-vessel coronary artery disease with known severe proximal circumflex, marginal 1, LAD disease with known chronic occlusion of the RCA. Patient felt not a optimal candidate for bypass surgery due to advanced age and frailty. He was seen recently by Dr. Christopher but at that point of time he was not having anginal symptoms and recommendation to continue with medical therapy. Now he clearly have accelerated course and recurrent angina. I did review the form andthe patient appears to be reasonable candidate for limited PCI to the proximal circumflex and LAD which might alleviate his anginal symptoms 2. Mild stage III chronic kidney disease 3. Peripheral vascular disease with prior abdominal aortic stent 4. Hypertension 5. Hyperlipidemia 6. The patient noted to be significantly bradycardic he is on very low-dose Coreg of 3.125 twice daily Plan - Pt tentatively placed NPO for possible PCI today. Reviewed case with Dr Christopher- pt has very high risk anatomy and would best be managed at a center that does high risk PCI. He however was only recently started on long acting nitrates and Imdur was increased to 60mg on admission. Pt has not had any further chest pain since admission. Additionally, there is no concern for ongoing ischemia given negative troponin and normal EKG. He did not use SL Nitroprior to hospitalization as he did not have it with him. - I held a long discussion with pt and and shared decision making was made to optimize medical therapy for now- uptitrating nitrates and addition of Ranexain future. Should he fail medical therapy, then will plan to refer him to [facility] for high risk PCI. - GDMT: Continue ASA, Lipitor, Coreg 3.125mg BID (bradycardic, unable to uptitrate further), Imdur 60mg daily, PRN Nitroglycerine, Lisinopril 5mg daily. - OK to discharge home today. Will plan for [facility] cardiology follow up in 2 weeks. Documented By: Autumn Davis MD 09/19/23 5432 Signed By: <Electronically signed by Autumn Davis MD> 09/19/23 4649 [facility] Work Phone: Progress note Author Ashley Griffiths [facility] January 18, 2024 5:07pm Note Date/Time January 18, 2024 5:08pm [facility] [address] [place] [address] Hospitalist Progress Note Signed Patient: Ever Mason MR#: [id number] : 1935 Acct:[id number] Age/Sex: 88 / M Adm Date: 4 Loc: 4N Room: [address] [place] [address] Type: ADM INOo Attending Dr: Ashley Griffiths MD Copies to: ~ Date of Service: 01/18/2024 Subjective Subjective Narrative: Patient has been seen and examined today. He denies any pain. He still has some left-sided neck pain especially with movements of the head, but no shoulder pain, no chest pain, he is able to lift his upper extremities without significant difficulties Review of system: General - denies any fevers, dizziness, headache Pulmonary - denies any SOB, cough Gastrointestinal - denies any abdominal pain, any nausea, vomiting Cardiovascular - denies any chest pain, palpitations Physical exam: General -awake, alert, oriented ?3, not in acute distress Cardiovascular -S1 with S2 Pulmonary - clear to auscultation bilaterally Gastrointestinal - abdomen is soft, nondistended, nontender, bowel sounds positive, there is no rigidity, no rebound Extremities -no edema Neurological -no focal neurological dysfunction noted Laboratory work up and Imaging studies reviewed clinical research monitor - reviewed, no significant arrhythmias noted EKG - personally reviewed by me. NSR with nonspecific changes with resolution ofT wave inversions Exam Physical Exam Vital Signs: Temp Pulse Resp BP Pulse Ox O2 Del Method 36.3 C L 75 16 174/90 H 96 Room Air 01/18/24 16:59 01/18/24 16:59 01/18/24 16:59 01/18/24 16:59 01/18/24 16:59 01/18/24 16:59 Objective Lab Results 01/18/24 04:14 01/18/24 04:14 Meds Allergies and Active Meds Allergies sitagliptin [Januvia] Allergy (Unknown, Verified 01/17/24 14:15) constipation / ineffective Active Meds: Active Medications Generic Name Dose Route Start Last Admin Trade Name Freq PRN Reason Stop Dose Admin Acetaminophen 650 mg 01/17/24 19:18 Acetaminophen 325 Mg Tablet PO 01/16/25 19:17 Q4H PRN Pain Scale 1 - 5 Albuterol 2.5 mg 01/17/24 19:18 Albuterol Neb 2.5 Mg/3 Ml Vial.Neb INHALATION 01/16/25 19:17 Q2H PRN Shortness Of Breath Aspirin 81 mg 01/18/24 09:00 01/18/24 08:06 Aspirin 81 Mg Tablet. PO 01/17/25 08:59 Not Given QAM UZMA Atorvastatin Calcium 40 mg 01/18/24 21:00 Atorvastatin 40 Mg Tablet PO 01/17/25 20:59 QPM UZMA Dextrose 0 gm 01/17/24 19:18 Dextrose 50% In Water 25 Gm/50 Ml Syringe IV-PUSH 01/16/25 19:17 PRN PRN Hypoglycemia Docusate Sodium 200 mg 01/17/24 19:18 Docusate 100 Mg Capsule PO 01/16/25 19:17 BID PRN Constipation Glucose 0 gm 01/17/24 19:18 Dextrose 40% Gel 15 Gm Tube PO 01/16/25 19:17 PRN PRN Hypoglycemia Heparin Sodium (Porcine) 5,000 unit 01/17/24 22:00 01/18/24 15:26 Heparin 5,000 Unit/Ml Vial SUBCUT 01/16/25 21:59 5,000 unit Q8HR UZMA Administration Hydralazine HCl 10 mg 01/17/24 19:18 Hydralazine 20 Mg/Ml Vial IV-PUSH 01/16/25 19:17 Q4H PRN if SBP > 185 Insulin Aspart 0 units 01/17/24 22:00 01/18/24 15:27 Insulin Aspart 300 Units/3 Ml Insuln.Pen SUBCUT 01/16/25 21:59 1 units TID.WM.HS UZMA Administration Protocol Levothyroxine Sodium 50 mcg 01/18/24 06:30 01/18/24 06:00 Levothyroxine 50 Mcg Tablet PO 01/17/25 06:29 Not Given DAILY@0630 UZMA Montelukast Sodium 10 mg 01/17/24 21:00 01/17/24 22:09 Montelukast 10 Mg Tablet PO 01/16/25 20:59 10 mg QPM UZMA Administration Nitroglycerin 0.4 mg 01/17/24 19:17 Nitroglycerin 0.4 Mg Tab.Subl SUBLINGUAL 01/16/25 19:16 Q5M PRN Chest Pain Sodium Chloride 0 ml 01/17/24 14:14 01/17/24 16:26 Sodium Chloride 0.9 % 10 Ml Syringe IV-PUSH 01/16/25 14:13 10 ml PRN PRN Administration Flush A&P - Hospitalist Assessment/Plan (1) Acute pain of left shoulder: Plan 1. Chest pain, somewhat atypical, resolved, he still had some neck pain with movements of his head but not that severe EKG reviewed, telemetry no arrhythmias, troponins remain negative Patient was evaluated by cardiology, recommended to follow-up as outpatient Hypotension on admission resolved, will resume blood pressure medications and recheck his blood pressure Plan to DC home later this afternoon Documented By: Ashley Griffiths MD 01/18/241704 Signed By: <Electronically signed by Ashley Griffiths MD> 01/18/24 170 [facility] Work Phone: Reason for referral (narrative)* Consultation (Routine) - Authorized Specialty Diagnoses / Procedures Referred By Sourav harden Referred To Contact Cardiology Diagnoses ASHD (arteriosclerotic heart disease) Procedures Follow Up In Cardiology Renny Christopher DO [address] [facility] [address] [place] [address] Renny Christopher DO [address] [place] [address] Referral ID Status Reason Start Date Expiration Date V isits Requested Visits Authorized [id number] Authorized 09/13/2023 09/12/2024 1 1 [facility] Work Phone: Rebgxh for referral (narrative)* Outpatient Procedure (Routine) - Authorized Specialty Diagnoses / Procedures Referred By Sourav harden Referred To [facility] Diagnoses Atherosclerosis of [place] coronary artery of [place] heart without angina pectoris Procedures ECG COMPLETE ECG ROUTINE ECG W/LEAST 12 LDS W/I&R Dinah Worthy MD [address] [place] [address] [facility] [place] [address] [place] [address] Referral ID Status Reason Start Date Expiration Date Visits Requested Visits Authorized [id number] Authorized Auto-Generat ed Referral 01/25/2024 01/24/2025 1 1 [facility] for [facility]: Reason for visit Narrative* Rehabilitation - Outpatient (Routine) - Authorized Specialty Diagnoses / Procedures Referred By Contac t Referred To Contact Physical Therapy Diagnoses Other intervertebral disc degeneration, 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 Muscle weakness (generalized) Deconditioning Procedures PA PHYSICAL THERAPY EVALUATION LOW COMPLEX 20 MINS PA OFFICE/OUTPATIENT NEW HIGH MDM 60 MINUTES Mercedes Davis MD [facility] [place] [place] [address] Phone: tel: fax: Judi Muir, PT [address] [address] Phone: tel: fax: Referral ID Status Reason Start Date Expiration Date V isits Requested Visits Authorized [id number] Authorized 07/04/2024 12/31/2024 30 30 [facility] Rehabilitation - Outpatient (Routine) - Authorized Specialty Diagnoses / Procedures Referred By Contac t Referred To Contact Physical Therapy Diagnoses Other intervertebral disc degeneration, 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 Muscle weakness (generalized) Deconditioning Procedures PA PHYSICAL THERAPY EVALUATION LOW COMPLEX 20 MINS PA OFFICE/OUTPATIENT NEW HIGH MDM 60 MINUTES Mercedes Davis MD [address] [place] [address] Phone: tel: fax: Judi Muir, PT [address] [address] Phone: tel: fax: Referral ID Status Reason Start Date Expiration Date V isits Requested Visits Authorized [id number] Authorized 07/04/2024 05/15/2025 30 30 [facility] Narrative* Rehabilitation - Outpatient (Routine) - Closed Specialty Diagnoses / Procedures Referred By Sourav harden Referred To Contact Physical Therapy Diagnoses Other intervertebral disc degeneration, 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 Summary Purpose Family History Relationship Condition Age at Onset Recorded Date/T dunia brother Unknown father Diabetes mellitus Unknown Unknown Heart disease Unknown Not Specified Unknown No Family History Records Found Advance Directives Advance Directive Response Recorded Date/ Time Advance Directives No February 14, 2017 4:22pm Advance Directive Response Recorded Date/ Time Advance Directives No February 14, 2017 3:22pm Chief Complaint and Reason for Visit Chief Complaint Screening Chief Complaint Screening see Chief Complaint d64.9 e11.9 Chief Complaint d64.9 e11.9 Tesitcles bleeding Chief Complaint d64.9 e11.9 Tesitcles bleeding i71.4 Chief Complaint d64.9 e11.9 Tesitcles bleeding i71.4 M25.512 Chief Complaint i71.4 M25.512 Chief Complaint m79.604 Chief Complaint m79.604 I71.4 Chief Complaint m79.604 I71.4 M54.16 Chief Complaint e11.9 e78.5 Medicare Wellness Sub R74.8 I71.4 6 month follow up; ABD U/S at 9:30am referred by Dr. Justice Singh I71.4 I25.10 CAD, Angina Pectoris, Abnormal Stress Test Reason for Visit AAA (abdominal aorti c aneurysm) Coronary artery disease with angina pectoris Essential (primary) hypertension AAA (abdominal aortic aneurysm) Chief Complaint e11.9 e78.5 Medicare Wellness Sub R74.8 I71.4 6 month follow up; ABD U/S at 9:30am referred by Dr. Justice Singh I71.4 I25.10 CAD, Angina Pectoris, Abnormal Stress Test GO [place] [facility] [place] Reason for Visit AAA (abdominal aorti c aneurysm) Coronary artery disease with angina pectoris Essential (primary) hypertension AAA (abdominal aortic aneurysm) AAA (abdominal aortic aneurysm) Chief Complaint e11.9 e78.5 Medicare Wellness Sub R74.8 I71.4 6 month follow up; ABD U/S at 9:30am referred by Dr. Justice Singh I71.4 I25.10 CAD, Angina Pectoris, Abnormal Stress Test GO OVER [place] SCAN D[place] [facility] [place] CAD, Angina Pectoris, Abnormal Stress Test Reason for Visit AAA (abdominal aorti c aneurysm) Coronary artery disease with angina pectoris Essential (primary) hypertension AAA (abdominal aortic aneurysm) AAA (abdominal aortic aneurysm) Chief Complaint R74.8 I71.4 6 month follow up; ABD U/S at 9:30am referred by Dr. 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 Trochanteric bursitis 3-vessel coronary artery disease CAD (coronary artery disease) Chest pain Chronic renal disease, stage III Coronary artery disease with angina pectoris Crescendo angina Diabetes Essential (primary) hypertension 3-vessel coronary artery disease CAD (coronary artery disease) Diabetes Coronary artery disease with angina pectoris Essential (primary) hypertension Chief Complaint 4 Months chest pains chest pains chest pains 3 MONTH [facility] 5/6 2 MONTHS Reason for Visit Chronic pain Lumbar back pain with radiculopathy affecting right lower extremity 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 Trochanteric bursitis 3-vessel coronary artery disease CAD (coronary artery disease) Chest pain Chronic renal disease, stage III Coronary artery disease with angina pectoris Crescendo angina Diabetes Essential (primary) hypertension 3-vessel coronary artery disease CAD (coronary artery disease) Diabetes Coronary artery disease with angina pectoris Essential (primary) hypertension Chronic pain Lumbar back pain with radiculopathy affecting right lower extremity 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 back, shoulder pain. 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 back, shoulder pain. 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 back, shoulder pain. 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 January 17, 2024 7:31pm back, shoulder pain. January 17, 2024 8:37pm 4 MONTHS March 05, 2024 8 :53am 6 Months April 05, 2024 8:44am Reason for Visit Admit Date Diabetes January 17, 2024 8:37pm 3-vessel coronary artery disease [facility] [place] 8:37[place] Acute electrocardiogram changes [facility] 2023 8:37pm Acute pain of left shoulder January 8:37pm Aortic ectasia, thoracic January 17, 2024 8:37pm Crescendo angina January 17, 2024 8:37pm Essential (primary) hypertension [facility] [place] 8:37pm Bee sting February 01, 2024 2:47pm Shingles rash February 01, 2024 2:47pm 3-vessel coronary artery disease [facility] 2023 2:47pm Chronic pain March 05, 2024 8 :53am Spinal stenosis of lumbar region at mult iple levels March 05, 2024 8:53am Trochanteric bursitis March 05, 2024 8:53am Chief Complaint Admit Date 6 Months April 05, 2024 8:44am 3 month f/u April 17, 2024 9 :10am 4 MONTHS July 02, 2024 8:55am Reason for Visit Admit Date Coronary artery disease with angina pect delfin April 05, 2024 8:44am Essential (primary) hypertension [facility] 2023 8:44am Coronary artery disease with angina pect delfin April 17, 2024 9:10am Diabetes April 17, 2024 9 :10am Chronic pain July 02, 2024 8:55am Spinal stenosis of lumbar region at mult iple levels July 02, 2024 8:55am Trochanteric bursitis July 02 8:55am Chief Complaint Admit Date 3 month f/u April 17, 2024 9 :10am 4 MONTHS July 02, 2024 8:55am e78.5 July 12, 2024 7:51am Reason for Visit Admit Date Coronary artery disease with angina pect delfin April 17, 2024 9:10am Diabetes April 17, 2024 9 :10am Chronic pain July 02, 2024 8:55am Spinal stenosis of lumbar region [place] [facility] [place] July 02, 2024 8:55am Trochanteric bursitis July 02 8:55am Chief Complaint Admit Date 4 MONTHS July 02, 2024 8:55am e78.5 July 12, 2024 7:51am 3 month f/u-labs July 19, 2024 8:32 am Reason for Visit Admit Date Chronic pain July 02, 2024 8:55am Spinal stenosis of lumbar region at [facility] iple levels July 02, 2024 8:55am Trochanteric bursitis July 02 8:55am Chronic renal disease, stage III July 192024 8:32am Diabetes July 19, 2024 8:32 am Hyperlipidemia July 19, 2024 8:32 am Chief Complaint Admit Date 4 July 02, 2024 8:55am e78.5 July 12, 2024 7:51am 3 month f/u-labs July 19, 2024 8:32 am 3 WEEKS July 23, 2024 10: 48am Reason for Visit Admit Date Chronic pain July 02, 2024 8:55am Spinal stenosis of lumbar region [place] [facility] [facility] [place] July 02, 2024 8:55am Trochanteric bursitis July 02 8:55am Chronic renal disease, stage III July 192024 8:32am Diabetes July 19, 2024 8:32 am Hyperlipidemia July 19, 2024 8:32 am Chronic pain July 23, 2024 10: 48am Spinal stenosis of lumbar region at [facility] [place] levels July 23, 2024 10:48am Trochanteric bursitis July 23, 2024 1 0:48am Chief Complaint Admit Date 4 MONTHS July 02, 2024 8:55am e78.5 July 12, 2024 7:51am 3 month f/u-labs July 19, 2024 8:32 am 3 WEEKS July 23, 2024 10: 48am 1 YR FOLLOW UP; ABD ULTRASOUND 8:30A [facility] 2024 8:26am Reason for Visit Admit Date Chronic pain July 02, 2024 8:55am Spinal stenosis of lumbar region at mult iple levels July 02, 2024 8:55am Trochanteric bursitis July 02 8:55am Chronic renal disease, stage III July 192024 8:32am Diabetes July 19, 2024 8:32 am Hyperlipidemia July 19, 2024 8:32 am Chronic pain July 23, 2024 10: 48am Spinal stenosis of lumbar region at mult iple levels July 23, 2024 10:48am Trochanteric bursitis July 23, 2024 1 0:48am AAA (abdominal aortic aneurysm) August 072024 8:26am Chief Complaint Admit Date 3 month f/u-labs July 19, 2024 8:32 am 3 WEEKS July 23, 2024 10: 48am 1 YR FOLLOW UP; ABD ULTRASOUND 8:30A [facility] 2024 8:26am 6 month F/U October 01, 2024 10:06 am E11.65 October 15, 2024 7:51a m Reason for Visit Admit Date Chronic renal disease, stage III July 192024 8:32am Diabetes July 19, 2024 8:32 am Hyperlipidemia July 19, 2024 8:32 am Chronic pain July 23, 2024 10: 48am Spinal stenosis of lumbar region at mult iple levels July 23, 2024 10:48am Trochanteric bursitis July 23, 2024 1 0:48am AAA (abdominal aortic aneurysm) August 072024 8:26am Coronary artery disease with angina pect delfin October 01, 2024 10:06am Essential (primary) hypertension September 10:06am Chief Complaint Admit Date 6 month F/U October 01, 2024 10:06 am E11.65 October 15, 2024 7:51a m 3 month f/u November 15, 2024 8:38a m Reason for Visit Admit Date Coronary artery disease with angina pect delfin October 01, 2024 10:06am Essential (primary) hypertension September 10:06am Diabetes November 15, 2024 8:38a m Chief Complaint Admit Date 3 month f/u November 15, 2024 8:38a m Right Eye Cataract February 01, 2025 12:27pm Reason for Visit Admit Date AAA (abdominal aortic aneurysm) November 8:38am Coronary artery disease with angina pect delfin November 15, 2024 8:38am Diabetes November 15, 2024 8:38a m Hypothyroidism November 15, 2024 8:38a m Chief Complaint Admit Date 3 month f/u November 15, 2024 8:38a m Right Eye Cataract February 01, 2025 12:27pm Shortness of Breath February 06, 2025 3:28pm Reason for Visit Admit Date AAA (abdominal aortic aneurysm) November 8:38am Coronary artery disease with angina pect delfin November 15, 2024 8:38am Diabetes November 15, 2024 8:38a m Hypothyroidism November 15, 2024 8:38a m Dyspnea February 06, 2025 3:28pm Elevated troponin February 06, 2025 3:28pm Weakness February 06, 2025 3:28pm Reason for Visit Admit Date AAA (abdominal aortic aneurysm) November 8:38am Coronary artery disease with angina pect delfin November 15, 2024 8:38am Diabetes November 15, 2024 8:38a m Hypothyroidism November 15, 2024 8:38a m Dyspnea February 06, 2025 3:28pm Elevated troponin February 06, 2025 3:28pm Intravascular volume depletion February 06, 2025 3:28pm Multi-vessel coronary artery stenosis Se ptember 2024 3:28pm Weakness February 06, 2025 3:28pm Chief Complaint Admit Date Right Eye Cataract February 01, 2025 12:27pm Shortness of Breath February 06, 2025 3:28pm Reason for Visit Admit Date Dyspnea February 06, 2025 3:28pm Elevated troponin February 06, 2025 3:28pm Intravascular volume depletion February 06, 2025 3:28pm Multi-vessel coronary artery stenosis Se ptember 2024 3:28pm Weakness February 06, 2025 3:28pm Chief Complaint Admit Date Right Eye Cataract February 01, 2025 12:27pm Shortness of Breath February 06, 2025 3:28pm review labs February 26, 2025 8 :31am Reason for Visit Admit Date Dyspnea February 06, 2025 3:28pm Elevated troponin February 06, 2025 3:28pm Intravascular volume depletion February 06, 2025 3:28pm Multi-vessel coronary artery stenosis Se ptember 2024 3:28pm Weakness February 06, 2025 3:28pm Diabetes February 26, 2025 8 :31am Hyperlipidemia February 26, 2025 8 :31am Non-STEMI (non-ST elevated myocardial in farction) February 26, 2025 8:31am Reason for Referral Specialty Diagnoses / Procedures Referred By Sourav t Referred To Contact [facility] [place] Procedures CARDIOVASCULAR MEDICINE OP FOLLOW [place] [address] [place] [address] [facility] [place] [address] [place] [address] Referral ID Status Reason Start Date Expiration Date Visits Requested Visits Authorized [id number] Authorized PCP Requested Referral 09/09/2024 06/11/[address] Martin or Dr. Apollo cowan Diagnosis 1 CAD (coronary artery disease) (I25.10) Referral Organization [facility] [facility] Family Geno Camara Referring Provider First Name Justice Referring Provider Last Name Saniya Referring Provider Specialty Family Prac conrad Referred Organization [facility] Cardiology Referred Provider Autumn Davis Referred Address [address] [place] [phone] Referred Provider Specialty Cardiovascul ar Disease Referral Priority Routine Referral Appointment Date 2023-07-21 General Notes Jennifer Clark 11:19:16 AM >received today, sending p2p at this time for scheduling Jennifer Clark 06/27/2023 01:37:24 PM >patient is scheduled 07/21/23 in [facility]. Referral moved as a workload reminder by cardiology pharmacy benefits coordinator for follow up. closing referral in eCW at this time Reason consult and atif at Diagnosis 1 Lumbar back pain wit h radiculopathy affecting right lower extremity (M54.16) Diagnosis 2 Spinal stenosis of l umbar region at multiple levels (M48.061) Diagnosis 3 Infrarenal abdominal aortic aneurysm (AAA) without rupture (I71.43) Referral Organization [facility] Family Medicin e Spickard Referring Provider First Name Justice Referring Provider Last Name Saniya Referring Provider Specialty Family Prac conrad Referred Organization [facility] urosurgery Referred Provider Marylou Garcia Referred Address [address] [facility] [address] ,[place], [place],[phone] Referred Provider Specialty Neurological Surgery Referral Priority Routine General Notes Doug Estrada 02/16 01:42:03 PM > Received referral, attachments made, note is not locked Additional Source Comments REASON FOR VISIT (unrecogniz ed section and content) Reason Comments Follow-up 8 month, arterioscle rotic heart disease Specialty Diagnoses / Procedures Referred By Sourav harden Referred To Contact Cardiology Diagnoses ASHD (arteriosclerotic heart disease) Procedures Follow Up In Cardiology Renny Christopher, DO [address] [facility] [address], [facility] [address] [place] [address] Phone: tel: fax: Renny Christopher, DO [address] [facility] [address], [address] [place] [address] Phone: tel: fax: Referral ID Status Reason Start Date Expiration Date V isits Requested Visits Authorized [id number] Authorized 03/15/2024 03/15/2025 1 1 Reason Comments Consult Patient is here for a surgical evaluation of CAD following referral from Dr. Christopher. Boyd NICHOLSN, RN-BC Reason Comments Follow-up Consult koromia/pci Reason Comments Appointment New patient letter s ent via mail Reason Comments Follow-up 6 m Referral ID Status Reason Start Date Expiration Date V isits Requested Visits Authorized [id number] Authorized 09/13/2023 09/12/2024 1 1 Reason Comments Appointment Reason Comments New Patient Care Team (unrecognized sect ion and content) Team Status: Inactive Member Role Status Dates Justice Singh DO Primary Care Provider, Attending Provi stanton Active Team Status: Active Member Role Status Dates Justice Singh , Primary Care Provider Active Team Status: Inactive Member Role Status Dates Justice Singh DO Primary Care Provider Active [employer] [employer] Attending Provider Active Team Status: Inactive Member Role Status Dates Justice Kuns , DO Primary Care Provider Active Jonh Mora MD Emergency Provider Active Team Status: Inactive Member Role Status Luanne Singh DO Primary Care Provider Active Gerhard Grissom MD Attending Provider Active Team Status: Inactive Member Role Status Luanne Singh DO Primary Care Provider Active MAXX Kellogg Attending Provider Active Team Status: Inactive Member Role Status Luanne Singh DO Primary Care Provide r, Attending Provider Active Start: May 17, 2023 End: May 17, 2023 Team Status: Inactive Member Role Status Luanne Singh DO Attending Provider Active Start: May 26, 2023 End: May 26, 2023 Team Status: Inactive Member Role Status Luanne Singh DO Primary Care Provide r, Attending Provider Active Start: June 06, 2023 End: June 06, 2023 Team Status: Inactive Member Role Status Luanne Singh DO Primary Care Provider Active Sta rt: July 11, 2023 End: July 11, 2023 MAXX Kellogg Attending Provider Active Start: July 11, 2023 End: July 11, 2023 Team Status: Inactive Member Role Status Luanne Singh DO Primary Care Provider Active Sta rt: July 11, 2023 End: July 11, 2023 Gerhard Grissom MD Attending Provider Active S tart: July 11, 2023 End: July 11, 2023 Team Status: Inactive Member Role Status Luanne Singh DO Primary Care Provider Active Sta rt: July 12, 2023 End: July 12, 2023 Winnie Martin MD Attending Provider Activ e Start: July 12, 2023 End: July 12, 2023 Team Status: Inactive Member Role Status Luanne Singh DO Primary Care Provider Active Sta rt: July 19, 2023 End: July 19, 2023 Gerhard Grissom MD Attending Provider Active S tart: July 19, 2023 End: July 19, 2023 Team Status: Inactive Member Role Status Luanne Singh DO Primary Care Provider Active Sta rt: July 25, 2023 End: July 25, 2023 Winnie Martin MD Attending Provider Activ e Start: July 25, 2023 End: July 25, 2023 Autumn Davis MD Referring Provider Active Sta rt: July 25, 2023 End: July 25, 2023 Team Status: Inactive Member Role Status Dates Justice Singh DO Primary Care Provider Active Sta rt: July 29, 2023 End: July 29, 2023 Joie Christopher DO Attending Provider Active S tart: July 29, 2023 End: July 29, 2023 Team Status: Inactive Member Role Status Dates Justice Singh DO Primary Care Provider Active Sta rt: August 01, 2023 End: August 01, 2023 Gerhard Grissom MD Attending Provider Active S tart: August 01, 2023 End: August 01, 2023 Team Status: Inactive Member Role Status Dates Justice Singh DO Primary Care Provider Active Sta rt: 2023 End: 2023 Joie Christopher DO Attending Provider Active S tart: 2023 End: 2023 Healthcare Facility Administrator Relationship Specialty Start Date End Date Justice Singh DO PCP - General 10/05/18 Healthcare Facility Administrator Relationship Specialty Start Date End Date Justice Singh DO [address] [place] [phone] PCP - General Family Medicine 08/23/23 Team Status: Inactive Member Role Status Dates Justice Singh DO Primary Care Provider Active Sta rt: August 31, 2023 End: August 31, 2023 Mercedes Davis MD Attending Provider Active Sta rt: August 31, 2023 End: August 31, 2023 Healthcare Facility Administrator Relationship Specialty Start Date End Date Justice Singh DO PCP - General Family Medicine 08/23/23 Team Status: Active Member Role Status Dates Justice Singh DO Primary Care Provider Active Sta rt: September 17, 2023 Merlin Escobar DO Emergency Provider Active Start: September 17, 2023 Ashley Griffiths MD Admit Provider, Att ending Provider Active Start: September 17, 2023 Team Status: Inactive Member Role Status Dates Justice Singh DO Primary Care Provider Active Sta rt: September 17, 2023 End: September 19, 2023 Merlin Escobar DO Emergency Provider Active Start: September 17, 2023 End: September 19, 2023 Ashley Griffiths MD Admit Provider Active Start : September 17, 2023 End: September 19, 2023 Richard Galvan MD Attending Provider Active Sta rt: September 17, 2023 End: September 19, 2023 Angella Lyn RN Other Provider Active Star t: September 17, 2023 End: September 19, 2023 Rowdy Haines MD Other Provider Active Start: M ay 2023 End: September 19, 2023 Winnie Martin MD Other Provider Active Start: September 17, 2023 End: September 19, 2023 Autumn Davis MD Other Provider Active Start: September 17, 2023 End: September 19, 2023 Team Status: Active Member Role Status Dates Justice Singh DO Primary Care Provider Active Sta rt: September 19, 2023 Merlin Escobar DO Emergency Provider Active Start: September 19, 2023 Ashley Griffiths MD Admit Provider Active Start : September 19, 2023 Richard Galvan MD Other Provider Active Start: September 19, 2023 Angella Lyn RN Other Provider Active Star t: September 19, 2023 Rowdy Haines MD Other Provider Active Start: M ay 2023 Winnie Martin MD Other Provider Active Start: September 19, 2023 Autumn Davis MD Attending Provider, Other Provider Active Start: September 19, 2023 Team Status: Active Member Role Status Dates uJstice Singh DO Primary Care Provider Active Sta rt: September 19, 2023 Merlin Escobar DO Emergency Provider Active Start: September 19, 2023 Ashley Griffiths MD Admit Provider Active Start : September 19, 2023 Richard Galvan MD Attending Provider, Other Provider Active Start: September 19, 2023 Angella Lyn RN Other Provider Active Star t: September 19, 2023 Rowdy Haines MD Other Provider Active Start: M ay 2023 Winnie Martin MD Other Provider Active Start: September 19, 2023 Autumn Davis MD Other Provider Active Start: September 19, 2023 Team Status: Active Member Role Status Dates Justice Singh DO Primary Care Provider Active Sta rt: September 19, 2023 End: September 19, 2023 Merlin Escobar DO Emergency Provider Active Start: September 19, 2023 End: September 19, 2023 Ashley Griffiths MD Admit Provider Active Start : September 19, 2023 End: September 19, 2023 Richard Galvan MD Other Provider Active Start: September 19, 2023 End: September 19, 2023 Angella Lyn RN Other Provider Active Star t: September 19, 2023 End: September 19, 2023 Rowdy Haines MD Other Provider Active Start: [place] 2023 End: September 19, 2023 Winnie Martin MD Other Provider Active Start: September 19, 2023 End: September 19, 2023 Autumn Davis MD Attending Provider, Other Provider Active Start: September 19, 2023 End: September 19, 2023 Team Status: Active Member Role Status Dates Justice Singh DO Primary Care Provider Active Sta rt: September 19, 2023 End: September 19, 2023 Merlin Escobar DO Emergency Provider Active Start: September 19, 2023 End: September 19, 2023 Ashley Griffiths MD Admit Provider Active Start : September 19, 2023 End: September 19, 2023 Richard Galvan MD Attending Provider, Other Provider Active Start: September 19, 2023 End: September 19, 2023 Angella Lyn RN Other Provider Active Star t: September 19, 2023 End: September 19, 2023 Rowdy Haines MD Other Provider Active Start: [place] 2023 End: September 19, 2023 Winnie Martin MD Other Provider Active Start: September 19, 2023 End: September 19, 2023 Autumn Davis MD Other Provider Active Start: September 19, 2023 End: September 19, 2023 Team Status: Inactive Member Role Status Dates Justice Singh DO Primary Care Provide r, Attending Provider Active Start: October 04, 2023 End: October 04, 2023 Team Status: Inactive Member Role Status Dates Justice Singh DO Primary Care Provider Active Sta rt: October 06, 2023 End: October 06, 2023 Winnie Martin MD Attending Provider Activ e Start: October 06, 2023 End: October 06, 2023 Team Status: Active Member Role Status Dates Winnie Martin MD Hot Roll Inspector Active Justice Singh DO Primary Care Provider Active Team Status: Inactive Member Role Status Luanne Singh DO Primary Care Provider Active Sta rt: November 07, 2023 End: November 07, 2023 Mercedes Davis MD Attending Provider Active Sta rt: November 07, 2023 End: November 07, 2023 Team Status: Active Member Role Status Luanne Singh DO Primary Care Provider Active Sta rt: December 26, 2023 USMAN Carter Attending Provider Active Start: December 26, 2023 Team Status: Inactive Member Role Status Dates Justice Singh DO Primary Care Provide r, Attending Provider Active Start: January 03, 2024 End: January 03, 2024 Team Status: Active Member Role Status Luanne Singh DO Primary Care Provider Active Sta rt: January 17, 2024 Carlene Booker DO Emergency Provider Active Start: January 17, 2024 Ayla Estrada DO Attending Provider Active Sta rt: January 17, 2024 Team Status: Active Member Role Status Luanne Singh DO Primary Care Provider Active Sta rt: January 17, 2024 Carlene Booker DO Emergency Provider Active Start: January 17, 2024 Ashley Griffiths MD Admit Provider, Att ending Provider Active Start: January 17, 2024 Team Status: Inactive Member Role Status Luanne Singh DO Primary Care Provider Active Sta rt: January 17, 2024 End: January 18, 2024 Carlene Booker DO Emergency Provider Active Start: January 17, 2024 End: January 18, 2024 Ashley Griffiths MD Admit Provider, Att ending Provider Active Start: January 17, 2024 End: January 18, 2024 Angella Lyn RN Other Provider Active Star t: January 17, 2024 End: January 18, 2024 Rowdy Haines MD Other Provider Active Start: Rohit tyler 2023 End: January 18, 2024 Winnie Martin MD Other Provider Active Start: January End: January 18, 2024 Autumn Davis MD Other Provider Active Start: January 17, 2024 End: January 18, 2024 Ayla Estrada DO Other Provider Active Start: January 17, 2024 End: January 18, 2024 Healthcare Facility Administrator Relationship Specialty Start Date End Date Winnie Martin MD [address] [place] [phone] Referring Cardiovascular Surgery 01/24/24 Healthcare Facility Administrator Relationship Specialty Start Date End Date Winnie Martin MD [address] [place] [phone] Referring Cardiovascular Surgery 01/24/24 Team Status: Inactive Member Role Status Dates Justice Singh DO Primary Care Provide w[place], Attending Provider Active Start: February 01, 2024 End: February 01, 2024 Team Status: Active Member Role Status Dates Justice Singh DO Primary Care Provider Active Sta rt: January 17, 2024 Carlene Booker DO Emergency Provider Active Start: January 17, 2024 Ayla Estrada DO Attending Provider Active Sta rt: January 17, 2024 Autumn Davis MD Active Start: Se ptember 2023 Team Status: Inactive Member Role Status Dates Justice Singh DO Primary Care Provider Active Sta rt: March 05, 2024 End: March 05, 2024 Mercedes Davis MD Attending Provider Active Sta rt: March 05, 2024 End: March 05, 2024 Healthcare Facility Administrator Relationship Specialty Start Date End Date Justice Singh DO PCP - General Family Medicine 08/23/23 Team Status: Active Member Role Status Dates Justice Singh DO Primary Care Provider Active Sta rt: January 17, 2024 End: January 18, 2024 Carlene Booker DO Emergency Provider Active Start: January 17, 2024 End: January 18, 2024 Ayla Estrada DO Attending Provider Active Sta rt: January 17, 2024 End: January 18, 2024 Autumn Davis MD Active Start: Se ptember 2023 End: January 18, 2024 Team Status: Inactive Member Role Status Dates Justice Singh DO Primary Care Provider Active Sta rt: April 05, 2024 End: April 05, 2024 Winnie Martin MD Attending Provider Activ e Start: April 05, 2024 End: April 05, 2024 Healthcare Facility Administrator Relationship Specialty Start Date End Date Winnie Martin MD [address] [place] [phone] Referring Cardiovascular Surgery 01/24/24 Healthcare Facility Administrator Relationship Specialty Start Date End Date Justice Singh [address] [place] [phone] PCP - General Family Medicine 06/11/24 Winnie Martin MD [address] [place] [phone] Referring Cardiovascular Surgery 01/24/24 Healthcare Facility Administrator Relationship Specialty Start Date End Date Justice Singh [address] [place] [phone] PCP - General Family Medicine 06/11/24 Winnie Martin MD [address] [place] [phone] Referring Cardiovascular Surgery 01/24/24 Team Status: Inactive Member Role Status Dates Justice Singh DO Primary Care Provide r, Attending Provider Active Start: April 17, 2024 End: April 17, 2024 Team Status: Inactive Member Role Status Dates Justice Singh DO Primary Care Provider Active Sta rt: July 02, 2024 End: July 02, 2024 Mercedes Davis MD Attending Provider Active Sta rt: July 02, 2024 End: July 02, 2024 Healthcare Facility Administrator Relationship Specialty Start Date End Date Justice Singh DO [address] [place], [place] [address], [place] [phone] PCP - General Family Medicine 12/30/22 Healthcare Facility Administrator Relationship Specialty Start Date End Date Justice Singh DO [address] [place] [facility] [phone] PCP - General Family Medicine 12/30/22 Healthcare Facility Administrator Relationship Specialty Start Date End Date Justice Singh DO [address] [facility], [phone] PCP - General Family Medicine 12/30/22 Healthcare Facility Administrator Relationship Specialty Start Date End Date Justice Singh DO [address] [facility], [phone] PCP - General Family Medicine 12/30/22 Healthcare Facility Administrator Relationship Specialty Start Date End Date Justice Singh DO [address] [place] [facility] [phone] PCP - General Family Medicine 12/30/22 Healthcare Facility Administrator Relationship Specialty Start Date End Date Justice Singh DO [address] [facility], [phone] PCP - General Family Medicine 12/30/22 Healthcare Facility Administrator Relationship Specialty Start Date End Date Justice Singh DO [address] [place] [facility] [phone] PCP - General Family Medicine 12/30/22 Team Status: Inactive Member Role Status Dates Justice Singh DO Primary Care Henny r, Attending Provider Active Start: July 12, 2024 End: July 12, 2024 Team Status: Inactive Member Role Status Dates Justice Singh DO Primary Care Provide r, Attending Provider Active Start: July 19, 2024 End: July 19, 2024 Team Status: Inactive Member Role Status Luanne Singh DO Primary Care Provider Active Sta rt: July 23, 2024 End: July 23, 2024 Mercedes Davis MD Attending Provider Active Sta rt: July 23, 2024 End: July 23, 2024 Team Status: Inactive Member Role Status Luanne Singh DO Primary Care Provider Active Sta rt: August 07, 2024 End: August 07, 2024 Gerhard Grissom MD Attending Provider Active S tart: August 07, 2024 End: August 07, 2024 Team Status: Inactive Member Role Status Luanne Singh DO Primary Care Provider Active Sta rt: August 07, 2024 End: August 07, 2024 Gerhard Grissom MD Active Start: August 07, 2024 End: August 07, 2024 Ignacia Molina UNDERWRITING MANAGER-C Attending Provider Active Start: August 07, 2024 End: August 07, 2024 Team Status: Inactive Member Role Status Luanne Singh DO Primary Care Provider Active Sta rt: October 01, 2024 End: October 01, 2024 Winnie Martin MD Attending Provider Activ e Start: October 01, 2024 End: October 01, 2024 Team Status: Inactive Member Role Status Luanne Singh DO Primary Care Provide r, Attending Provider Active Start: October 15, 2024 End: October 15, 2024 Healthcare Facility Administrator Relationship Specialty Start Date End Date Justice Singh DO [facility] [address] [place] [address] PCP - General Family Medicine 10/30/24 Team Status: Inactive Member Role Status Luanne Singh DO Primary Care Provider Active Sta rt: October 15, 2024 End: October 15, 2024 Justice Singh DO Attending Provider Active Start: October 15, 2024 End: October 15, 2024 Team Status: Inactive Member Role Status Luanne Singh DO Primary Care Provider Active Sta rt: November 15, 2024 End: November 15, 2024 Justice Singh DO Attending Provider Active Start: November 15, 2024 End: November 15, 2024 Team Status: Inactive Member Role Status Dates Justice Singh DO Primary Care Provider Active Sta rt: February 01, 2025 End: February 01, 2025 Tresa Girard MD Attending Provider Active Start: February 01, 2025 End: February 01, 2025 Team Status: Active Member Role Status Dates Justice Singh DO Primary Care Provider Active Sta rt: February 06, 2025 Merlin Escobar , Emergency Provider Active Start: February 06, 2025 Jg Olvera MD Admit Provider Active Start: February 06, 2025 Jg Olvera MD Attending Provider Active St art: February 06, 2025 Angella Lyn RN Other Provider Active Star t: February 06, 2025 Joie Christopher DO Other Provider Active Start : February 06, 2025 Ryanne Bhatt MD Other Provider Active Start: February 06, 2025 Mayra Person MD Other Provider Active St art: February 06, 2025 Char Mora APRN Other Provider Active Start : February 06, 2025 Genesis Santos MD Other Provider Active Start: S eptember 2024 Adriana Castro [facility] Other Provider Active Sta rt: February 06, 2025 Team Status: Active Member Role Status Dates Justice Singh DO Primary Care Provider Active Sta rt: February 06, 2025 Merlin Escobar DO Emergency Provider Active Start: February 06, 2025 Jg Olvera MD Admit Provider Active Start: February 06, 2025 Jg Olvera MD Other Provider Active Start: February 06, 2025 Angella Lyn RN Other Provider Active Star t: February 06, 2025 Rowdy Haines MD Other Provider Active Start: S eptember 2024 Winnie Martin MD Attending Provider Active Start: January Winnie Martin MD Other Provider Active Start: January Autumn Davis MD Other Provider Active Start: February 06, 2025 Lou Blair APRN Other Provider Active Sta rt: February 06, 2025 Team Status: Inactive Member Role Status Dates Justice Singh DO Primary Care Provider Active Sta rt: February 19, 2025 End: February 19, 2025 Justice Singh DO Attending Provider Active Start: February 19, 2025 End: February 19, 2025 Team Status: Inactive Member Role Status Dates Justice Singh DO Primary Care Provider Active Sta rt: February 26, 2025 End: February 26, 2025 Justice Singh DO Attending Provider Active Start: February 26, 2025 End: February 26, 2025 (unrecognized sect ion and content) No Status Records FoundNo Status Records FoundNo Status Records FoundNo Status Records FoundNo Status Records FoundNo Status Records FoundNo Status Records FoundNo Status Records FoundNo Status Records Found INFORMATION SOURCE (unrecogn ized section and content) DATE CREATED AUTHOR [facility]/29/2021 [facility] DATE CREATED AUTHOR AUTHOR'S ORGANIZ ATION 02/23/2022 [facility] DATE CREATED AUTHOR AUTHOR'S ORGANIZ ATION 02/18/2023 [facility] DATE CREATED AUTHOR AUTHOR'S ORGANIZ ATION 02/18/2023 [facility] DATE CREATED AUTHOR AUTHOR'S ORGANIZ ATION 08/27/2023 [facility] DATE CREATED AUTHOR AUTHOR'S ORGANIZ ATION 06/28/2024 [facility] DATE CREATED AUTHOR AUTHOR'S ORGANIZ ATION 07/19/2024 [facility] EPIC DATE CREATED AUTHOR AUTHOR'S ORGANIZ ATION 12/06/2024 [facility] DATE CREATED AUTHOR AUTHOR'S ORGANIZ ATION 02/24/2025 [facility] Goals (unrecognized section and content) Goals may be documented in a n alternate section Source Comments (unrecognize d section and content) In the event this informatio n is protected by the Federal Confidentiality of Alcohol and Drug Abuse Patient Records regulations: The Federal rules restrict any use of the information to criminally investigate or prosecute any alcohol or drug abuse patient.[facility] HealthIn the event this information is protected by the Federal Confidentiality of Alcohol and Drug Abuse Patient Records regulations: The Federal rules restrict any use of the information to criminally investigate or prosecute any alcohol or drug abuse patient.[facility] HealthIn the event this information is protected by the Federal Confidentiality of Alcohol and Drug Abuse Patient Records regulations: The Federal rules restrict any use of the information to criminally investigate or prosecute any alcohol or drug abuse patient.[facility] HealthIn the event this information is protected by the Federal Confidentiality of Alcohol and Drug Abuse Patient Records regulations: The Federal rules restrict any use of the information to criminally investigate or prosecute any alcohol or drug abuse patient.[facility] HealthIn the event this information is protected by the Federal Confidentiality of Alcohol and Drug Abuse Patient Records regulations: The Federal rules restrict any use of the information to criminally investigate or prosecute any alcohol or drug abuse patient.[facility] FOR RECORDS PERTAINING TO PATIENTS WHO ARE OR HAVE BEEN ENROLLED IN A CHEMICAL DEPENDENCY/SUBSTANCEABUSE PROGRAM, SOME INFORMATION MAY BE OMITTED. This clinical summary was aggregated from multiple sources. Caution should be exercised in using it in the provision of clinical care. This summary normalizes information from multiple sources, and as a consequence, information in this document may materially change the coding, format and clinical context of patient data. In addition, data may be omitted in some cases. CLINICAL DECISIONS SHOULD BE BASED ON THE PRIMARY CLINICAL RECORDS. [facility] [employer] [facility]. provides no warranty or guarantee of the accuracy or completeness of information in this document.
--- NOTE | 2025-02-28 13:56 | PM.WCHP ---
Wound Care H&P: HPI History of Present Illness Narrative: The patient is an 89-year-old gentleman with history of type 2 diabetes and neuropathy who presents for routine toenail care. He has no complaints in regards to his feet at this time. Exam Narrative: Exam Narrative: Dermatologic: No ulcerative or preulcerative lesions are noted. Toenails 1 through 10 are elongated, mycotic, and thickened. No evidence of paronychia. Musculoskeletal: Reducible hammertoe contractures of the lesser toes, strength and range of motion are within normal limits Neurologic: Achilles reflexes are absent bilaterally, vibratory sensation is present bilaterally, monofilament testing revealed protective sensation intact in 1/5 areas on the right and 3/5 areas on the left. Vascular: Dorsalis pedis pulses are 2/4 bilaterally. PT pulses are nonpalpable bilaterally. Capillary refill is less than 3 seconds bilaterally. Varicosities are present bilaterally. Skin is warm and dry, but shiny. No edema noted. Digital hair is absent. 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 Follow-up in 3 months. Acute Procedures Podiatry Nail Debridement Class B Findings Absent posterior tibial pulse: bilateral Advanced trophic changes as evidenced by any three of the following: decreased hair growth, nail changes (thickening), pigmentary changes (discoloring) and skin texture (thin or shiny) Class C Findings Claudication: No Temperature changes: No Edema: No Nail debridement paresthesia (abnormal spontaneous sensations in the feet): No Burning: No Qualifies If: Qualifiers If:: A patient qualifies for nail debridement if they have: 1 class A finding (Q7) 2 class B findings (Q8) OR 1 class B & 2 class C findings in addition to a primary condition (Q9) Nail Procedure Nail Procedure Time out: Yes Nail procedure: other (Debridement of toenails 1 through 10) Number of affected nails: 10 Location (toes): left and right Procedure successful: Yes Patient tolerated procedure: well and no complications Additional comments: Toenails 1 through 10 were sharply debrided with nail nippers without incident and to the patient satisfaction.
== END 2025-02-28 13:26 | disposition home or self-care (01) ==
LOC: WC 13:26
PROVIDERS: Visit Provider Physician Assistant
DX: B35.1 Tinea unguium (principal); L60.8 Other nail disorders; E11.40 Type 2 diabetes mellitus with diabetic neuropathy, unspecified; R09.89 Other specified symptoms and signs involving the circulatory and respiratory systems
CPT/HCPCS: 11721